=== PATIENT | female | born 1935 | race Caucasian/White ===

== ENCOUNTER → 2017-07-27 | Outpatient (CLI) | payer OTHER ==
--- NOTE | 2017-07-27 16:03 | DIAGNOSTIC IMAGING REPORT ---
L KNEE 1 OR 2 VIEWS ROUTINE CLINICAL HISTORY: Left knee pain COMPARISON: None. DISCUSSION: No fractures or dislocations. 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 No acute fractures 2. 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 07/27/2017 4:01 PM Dictated Date/Time: 07/27/2017 4:00 PM
--- NOTE | 2017-07-27 16:03 | DIAGNOSTIC IMAGING REPORT ---
L-SPINE MIN 4 VIEWS ROUTINE CLINICAL HISTORY: Lower back pain. COMPARISON: None FINDINGS: There is marked disc space narrowing at L5-S1. No acute lumbar spine fracture is identified. There is moderate multilevel facet arthrosis. There is markedly abnormal appearance of the left femoral head. There is marked left hip joint space narrowing. There is sclerosis within left femoral head with collapse. Extensive atherosclerotic plaque of the abdominal aorta is noted. There is possible aneurysmal dilatation which is suboptimally assessed by radiography. The AP diameter of the aorta may measure approximately 3.5 cm. There are retroperitoneal surgical clips. IMPRESSION: 1. No lumbar spine fracture. 2. Marked disc space narrowing at L5-S1. 3. Marked left hip joint space narrowing with sclerosis and lucency of the left femoral head with articular collapse. This favors avascular necrosis with osteoarthritis. 4. Possible mild aneurysmal dilatation of the abdominal aorta which is suboptimally assessed by radiography. Electronically signed by: Chandler Joshua M.D. 07/27/2017 4:01 PM Dictated Date/Time: 07/27/2017 3:58 PM
--- NOTE | 2017-07-27 16:04 | DIAGNOSTIC IMAGING REPORT ---
R KNEE 1 OR 2 VIEWS ROUTINE CLINICAL HISTORY: BILATERAL CHRONIC KNEE PAIN COMPARISON: None FINDINGS: Alignment of the right knee is anatomic. No joint effusion or fracture is visualized. Note is made of sclerosis within the distal shaft and metadiaphysis of the right femur that measures approximately 9.6 x 1.8 cm in extent. IMPRESSION: 1. No acute fracture or joint effusion of the right knee. 2. Sclerosis within the distal shaft and metadiaphysis of the right femur which favors a bone infarct. Electronically signed by: Chandler Joshua M.D. 07/27/2017 4:03 PM Dictated Date/Time: 07/27/2017 4:02 PM
--- NOTE | 2017-07-27 16:21 | DIAGNOSTIC IMAGING REPORT ---
RIGHT HIP 2 VIEWS (NO CHARGE) CLINICAL HISTORY: Hip pain COMPARISON: None. DISCUSSION: No fractures or dislocations of the right hip are visualized. No charge will be made for this interpretation at the technologist inadvertently imaged the incorrect hip. The patient will be called back for imaging of the left hip. IMPRESSION: No fracture identified. Electronically signed by: Brooks De Paz M.D. 07/27/2017 4:20 PM Dictated Date/Time: 07/27/2017 4:16 PM
--- NOTE | 2017-07-27 17:31 | DIAGNOSTIC IMAGING REPORT ---
L HIP UNILATERAL 2 VIEWS CLINICAL HISTORY: Left hip pain. COMPARISON: None FINDINGS: There is marked left hip joint space narrowing. This extensive sclerosis and lucency within the left femoral head. There is subchondral lucency with suspected subchondral collapse/fracture that measures approximately 2.2 cm in extent. There are possible old screw tracts within the proximal left femur. There is no suspicious osseous lesion. IMPRESSION: Severe osteoarthritis of the left hip with marked joint space narrowing. Mixed lucency and sclerosis of the left femoral head favors avascular necrosis with extensive subchondral collapse/fracture. Electronically signed by: Chandler Joshua M.D. 07/27/2017 5:30 PM Dictated Date/Time: 07/27/2017 5:27 PM
== END | disposition home or self-care (01) ==
LOC: C.RAD 14:56
PROVIDERS: ATTEND Nurse Practitioner Family
DX: M54.5 Low back pain (principal); M25.561 Pain in right knee; M16.12 Unilateral primary osteoarthritis, left hip

== ENCOUNTER → 2017-09-06 | Outpatient (CLI) | payer OTHER | END | disposition home or self-care (01) | LOC: C.MAMM 13:03 | PROVIDERS: ATTEND Physical Medicine & Rehabilitation Sports Medicine | DX: M81.0 Age-related osteoporosis without current pathological fracture (principal); M85.88 Other specified disorders of bone density and structure, other site ==

== ENCOUNTER → 2017-09-24 | Outpatient (CLI) | payer OTHER | END | disposition home or self-care (01) | LOC: C.RDSM 17:47 | PROVIDERS: ATTEND Orthopaedic Surgery | DX: M87.00 Idiopathic aseptic necrosis of unspecified bone (principal) ==

== ENCOUNTER → 2018-01-15 | Outpatient (CLI) | payer OTHER | END | disposition home or self-care (01) | LOC: C.RDSM 14:09 | PROVIDERS: ATTEND Orthopaedic Surgery | DX: M25.552 Pain in left hip (principal) ==

== ENCOUNTER 2018-09-02 14:06 | Inpatient (IN) ==
[2018-09-02] MEDS ORDERED: ONDANSETRON INJ 2 MG/ML 2 ML VIAL IV STA (14:38)
[2018-09-02] MEDS ORDERED: SODIUM CHLORIDE 0.9% 500 ML IV SCH (14:45)
[2018-09-02 15:06] LABS: Basophils # (auto) 0.02 K/uL (0-0.2); Basophils % (auto) 0.2 %; Eosinophils # (auto) 0.01 K/uL (0-0.5); Eosinophils % (auto) 0.1 %; Hematocrit (blood only) 31.7 % (37-47); Immature Granulocytes # (auto) 0.06 K/uL (0.00-0.02); Immature Granulocytes % (auto) 0.5 %; Lymphocytes # (auto) 1.05 K/uL (1.2-3.4); Mean Corpuscular Hgb Conc 34.7 g/dL (32-36); Mean Corpuscular Volume 91.1 fL (80-100); Monocytes # (auto) 0.61 K/uL (0.11-0.59); Monocytes % (auto) 4.6 %; Neutrophils # (auto) 11.45 K/uL (1.4-6.5); Neutrophils % (auto) 86.6 %; Platelet Count 500 K/uL (130-400); RDW Coefficient of Variation 14.9 % (11.5-14.5); RDW Standard Deviation 49.9 fL (36.4-46.3); Red Blood Count 3.48 M/uL (4.2-5.4)
--- NOTE | 2018-09-02 15:11 | XRay Report ---
XR chest 1V portable CLINICAL HISTORY: 83 years-old Female presenting with abd pain, back pain, reported illness. TECHNIQUE: Portable upright AP view of the chest was obtained. COMPARISON: 08/22/2018. FINDINGS: Atherosclerosis of the aortic arch. Cardiac silhouette normal in size. Hyperinflated lungs. Few scatt ered calcified granulomata. No focal opacity. No lateral view was obtained for the current exam. No p leural effusion or pneumothorax. Degenerative changes of the thoracic spine. Surgical clips project o isabel the epigastrium. IMPRESSION: 1. Comparison to the prior radiograph is difficult due to the lack of a lateral view on the current exam. Recommend PA and lateral views for further assessment. Hyperinflation suggests underlying emphy sema. Electronically signed by: Jj Hylton M.D. 09/02/2018 3:09 PM
[2018-09-02] MEDS: MoRPHine SULFATE 4 MG/ML 1 ML CARP\\VIAL IV PRN ×3 (15:16→18:51)
[2018-09-02 15:19] LABS: INR 1.2 (0.9-1.1); Partial Thromboplastin Ratio 1.1; Partial Thromboplastin Time 30.7 Seconds (21.0-31.0); Prothrombin Time 11.8 Seconds (9.0-12.0)
[2018-09-02 15:23] LABS: Alanine Aminotransferase 23 U/L (12-78); Albumin Level 3.3 gm/dl (3.4-5.0); Aspartate Aminotransferase 22 U/L (15-37); BUN Creatinine Ratio 20.9 (10-20); Blood Urea Nitrogen 22 mg/dl (7-18); Calcium 8.9 mg/dl (8.5-10.1); Carbon Dioxide 28 mmol/L (21-32); Chloride 94 mmol/L (98-107); Creatinine Clr Calc Pharmacy 31.4 ml/min; Est GFR (African American) 56.6; Est GFR (Non-African American) 48.9; Glucose 94 mg/dl (70-99); Potassium 4.5 mmol/L (3.5-5.1); Sodium 129 mmol/L (136-145)
[2018-09-02 15:28] LABS: Albumin Globulin Ratio 0.9 (0.9-2); Alkaline Phosphatase 144 U/L (45-117); Bilirubin,Total 0.9 mg/dl (0.2-1); Globulin 3.6 gm/dl (2.5-4.0); Total Protein 6.9 gm/dl (6.4-8.2); Troponin I < 0.015 ng/ml (0-0.045)
[2018-09-02] MEDS ORDERED: IOVERSOL 100ml IV PRN (16:15)
--- NOTE | 2018-09-02 16:42 | CT Scan Report ---
CT SCAN OF THE ABDOMEN AND PELVIS WITH IV CONTRAST CLINICAL HISTORY: Generalized abdominal pain. COMPARISON STUDY: Radiographs of the lumbar spine dated 07/27/2017. TECHNIQUE: Following the IV administration of 93 cc of Optiray 320, CT scan of the abdomen and pelvi s is performed from the lung bases to the proximal femora. Images are reviewed in the axial, sagittal , and coronal planes. IV contrast was administered without complication. A dose lowering technique wa s utilized adhering to the principles of ALARA. CT DOSE: 208.42 mGycm FINDINGS: Lung bases: The heart is normal in size and without pericardial effusion. There are coronary artery c alcifications. A tiny hiatal hernia is identified. Fat-containing Bochdalek hernias are seen at both lung bases. Emphysematous change is noted. There is bibasilar scarring/atelectasis. No airspace conso lidation or pleural effusion is seen. There is a 12 mm focus of irregular nodularity/scarring in the right lower lobe seen on image #12. A 3 mm nodule is seen in the left lower lobe on image #35. Liver: The contrast-enhanced liver is normal in size, contour, and attenuation. There is no intrahepa tic biliary ductal dilatation. The hepatic veins and portal veins are patent. Gallbladder: Cholelithiasis is noted. There is no CT evidence of acute cholecystitis. Spleen: Normal in size and attenuation. There are scattered calcified splenic granulomas. Pancreas: Unremarkable. Adrenal glands: Unremarkable. Kidneys: The contrast enhanced kidneys demonstrate cortical atrophy. There is mild bilateral hydronep hrosis, likely related to the markedly distended bladder. The kidneys enhance symmetrically. Abdominal vasculature: There is advanced atherosclerotic calcification of the abdominal aorta. There is a bilobed abdominal aortic aneurysm. The more superior component is located at the level of the re nal arteries and measures 4.0 x 4.5 cm (AP times transverse). The infrarenal component measures 3.3 x 3.3 cm. Bowel: There are scattered colonic diverticula without CT evidence of acute diverticulitis. Colonic f ecal retention is observed. No bowel obstruction is seen. The appendix is not identified. Peritoneum: There is no intraperitoneal free air or abdominal ascites. Lymphadenopathy: None. Pelvic viscera: The bladder is distended and grossly unremarkable. The uterus is surgically absent. N o adnexal lesion is seen. There is abnormal perirenal soft tissue, likely representing pelvic floor p rolapse. Skeletal structures: The skeletal structures are osteopenic. Moderate lumbosacral spondylosis is obse rved. No lytic or blastic lesions are seen. There is advanced arthritic change involving the left hip , with deformity/flattening of the femoral head as well as postoperative change. Bursal fluid is note d on the left hip. There is chronic posterior matter deformity of the left pubic ring. There are age indeterminant bilateral sacral insufficiency fractures. IMPRESSION: 1. There are no acute infectious or inflammatory findings in the abdomen or pelvis. 2. The bladder is markedly distended but otherwise normal as imaged. 3. There is mild bilateral hydroureteronephrosis, likely related to the markedly distended bladder. 4. There is a bilobed infrarenal abdominal aortic aneurysm as detailed above. This measures up to 4.0 x 4.5 cm. 5. There is abnormal soft tissue in the perineal region at the vaginal introitus. This likely represe nts pelvic floor prolapse. Correlation with direct visualization is recommended. 6. Emphysema. 7. Cholelithiasis without CT evidence of acute cholecystitis. 8. There is a 12 mm focus of irregular nodularity in the right lower lobe. This is likely related to scarring/atelectasis. Follow-up with a dedicated chest CT in 3 months time is recommended for reasses sment. 9. There are age indeterminant bilateral sacral insufficiency fractures. 10. Advanced chronic degenerative change and deformity is noted in the left hip. 11. Additional findings as above. Electronically signed by: Tyler Coffman M.D. 09/02/2018 4:40 PM
[2018-09-02] MEDS ORDERED: cefTRIAXone SODIUM 1,000 MG/50 ML BAG IV STA (17:31)
[2018-09-02 17:41] LABS: Appearance Urine Clear (Clear); Bacteria Urine Automated Negative (Negative); Bilirubin Urine Negative (Negative); Blood Urine Trace (Negative); Cast Urine Automated 0 /lpf (0-5); Color Urine Yellow; Glucose Urine UA Negative (Negative); Ketones Urine Negative (Negative); Leukocyte Esterase Urine 1+ (Negative); Nitrite Urine Negative (Negative); Protein Urine Negative (Negative); RBC Urine Automated 0-4 /hpf (0-4); Specific Gravity Urine 1.017 (1.000-1.030); Urobilinogen Urine Negative (Negative)
[2018-09-02] MEDS ORDERED: SODIUM CHLORIDE 0.9% 1000ML 500 ML IV ONE (18:03)
--- NOTE | 2018-09-02 18:18 | Emergency Department Note ---
Entered by Ghada Barrios acting as a scribe for Shaun Castro DO History of Present Illness General Chief complaint: Back Injury/Pain Time Seen by Provider: 09/02/18 14:28 Source: patient History of Present Illness Onset (ago): day(s) (last night) Location: back Pain Consistency: + other (worsening) Maximum Pain Intensity: 8 Exacerbated By: + movement Associated symptoms: + denies other symptoms (back pain, leg swelling), + loss of appetite and + other (abdominal pain, unable to sleep, gagging, shaking, weight loss); no chest pain and no shortness of breath The patient is an 83 year old female who presents to the Emergency Room with complaints of worsening back pain starting last night. The patient states that she has a history of back pain, but it is worse. She states that movement makes the pain worse. She states that she has abdominal pain as well. The patients daughter states that she bought her in because last night she was unable to sleep, was complaining of increased pain, was gagging, and was shaking. She states that she took her to the PCP this morning, but they recommend she come to the ED. The patient complains of loss of appetite. She notes that she has been dropping weight because of it. The patient denies back pain, chest pain, leg swelling, and shortness of breath. Home Medications Home Medications Medication Instructions Recorded Confirmed Type amlodipine 5 mg PO QPM 09/02/18 09/02/18 History aspirin [Aspir-81] 81 mg PO DAILY 09/02/18 09/02/18 History budesonide-formoterol [Symbicort] 2 puff INHALATION BID 09/02/18 09/02/18 History calcium carbonate [Calcium 600] 600 mg PO QPM 09/02/18 09/02/18 History cinnamon bark [Cinnamon] 1,000 mg PO BID 09/02/18 09/02/18 History citalopram 40 mg PO DAILY 09/02/18 09/02/18 History irbesartan 150 mg PO DAILY 09/02/18 09/02/18 History levalbuterol HCl 1.25 mg INHALATION TID PRN 09/02/18 09/02/18 History levothyroxine 75 mcg PO DAILY 09/02/18 09/02/18 History meloxicam 7.5 mg PO DAILY 09/02/18 09/02/18 History omega [id number]-fish oil [Fish Oil] 1 cap PO DAILY 09/02/18 09/02/18 History oxycodone-acetaminophen [Percocet] 1 tab PO Q6H PRN 09/02/18 09/02/18 History pravastatin 40 mg PO DAILY 09/02/18 09/02/18 History tiotropium bromide [Spiriva 2 puff INHALATION DAILY 09/02/18 09/02/18 History Respimat] Allergies Allergy/AdvReac Type Severity Reaction Status Date / Time bupropion [From Wellbutrin] Allergy Mild Unknown Unverified 09/02/18 14:48 hydrochlorothiazide Allergy Mild Unknown Unverified 09/02/18 14:48 [From Avalide] irbesartan [From Avalide] Allergy Mild Unknown Unverified 09/02/18 14:48 roflumilast [From Daliresp] Allergy Mild Unknown Unverified 09/02/18 14:48 Past Med/Surg History Medical History Anxiety COPD (chronic obstructive pulmonary disease) Hypertension Hypothyroidism Osteopenia Family History Father Hypertension Social History Preferred Language: Salvadorean Communication Ability: Effective [employer] Required: No Beliefs That Will Affect Care: None marital status: / Current Living Situation: Family current occupational status: retired Other Information That Helps Us Care for You: No Feels Safe at Home: Yes Safety Concerns: Feels Safe At This Time Smoking Status: Former smoker Hx Alcohol Use: No Hx Substance Use: No Review of Systems See HPI for pertinent positives & negatives. and A total of 10 systems reviewed and were otherwise negative Physical Exam Vital Signs Vital Signs - 24 hr 09/02/18 14:10 09/02/18 15:20 09/02/18 15:30 Temperature 36.4 C L Temperature Source Oral Sepsis Recent Fever Within 48 Hours No Sepsis New/Unexplained Change in Mental Status No Sepsis Action Taken by Nursing No Action Required Pulse Rate 73 69 Pulse Rate [Apical] 69 Pulse Rate [Finger] Pulse Rate from SpO2 Sensor 68 Pulse Rhythm [Finger] Pulse Strength [Finger] Respiratory Rate 18 10 L 15 Respiratory Effort / Characteristics Non-Labored Respiratory Depth Normal Respiratory Pattern Regular Blood Pressure 153/72 H 145/76 H Blood Pressure [Left Arm] 147/72 H Blood Pressure [Right Arm] Blood Pressure Mean 99 99 Blood Pressure Mean [Left Arm] 97 Blood Pressure Mean [Right Arm] Blood Pressure Position [Left Arm] Blood Pressure Position [Right Arm] Pulse Oximetry 100 97 94 Oxygen Delivery Method Room Air Room Air Room Air 09/02/18 16:00 09/02/18 16:30 09/02/18 17:00 Temperature Temperature Source Sepsis Recent Fever Within 48 Hours Sepsis New/Unexplained Change in Mental Status Sepsis Action Taken by Nursing Pulse Rate 71 75 89 Pulse Rate [Apical] Pulse Rate [Finger] Pulse Rate from SpO2 Sensor 72 72 Pulse Rhythm [Finger] Pulse Strength [Finger] Respiratory Rate 12 21 15 Respiratory Effort / Characteristics Respiratory Depth Respiratory Pattern Blood Pressure 134/68 Blood Pressure [Left Arm] Blood Pressure [Right Arm] Blood Pressure Mean 90 Blood Pressure Mean [Left Arm] Blood Pressure Mean [Right Arm] Blood Pressure Position [Left Arm] Blood Pressure Position [Right Arm] Pulse Oximetry 98 97 Oxygen Delivery Method Room Air Room Air 09/02/18 18:33 09/02/18 19:26 09/02/18 19:40 Temperature 37 C Temperature Source Oral Sepsis Recent Fever Within 48 Hours Sepsis New/Unexplained Change in Mental Status Sepsis Action Taken by Nursing Pulse Rate 67 Pulse Rate [Apical] 63 Pulse Rate [Finger] 84 Pulse Rate from SpO2 Sensor 67 Pulse Rhythm [Finger] Regular Pulse Strength [Finger] Normal Respiratory Rate 8 L 20 18 Respiratory Effort / Characteristics Non-Labored Spontaneous Respiratory Depth Normal Respiratory Pattern Regular Blood Pressure 131/65 Blood Pressure [Left Arm] 129/70 150/61 H Blood Pressure [Right Arm] Blood Pressure Mean 87 Blood Pressure Mean [Left Arm] 89 90 Blood Pressure Mean [Right Arm] Blood Pressure Position [Left Arm] Lying Blood Pressure Position [Right Arm] Pulse Oximetry 95 97 94 Oxygen Delivery Method Room Air Room Air Room Air 09/02/18 21:33 09/02/18 23:01 09/03/18 07:41 Temperature 36.9 C 37.3 C Temperature Source Oral Oral Sepsis Recent Fever Within 48 Hours Sepsis New/Unexplained Change in Mental Status Sepsis Action Taken by Nursing Pulse Rate Pulse Rate [Apical] Pulse Rate [Finger] 71 79 84 Pulse Rate from SpO2 Sensor Pulse Rhythm [Finger] Pulse Strength [Finger] Respiratory Rate 18 16 Respiratory Effort / Characteristics Respiratory Depth Respiratory Pattern Blood Pressure Blood Pressure [Left Arm] 99/37 L 106/56 L Blood Pressure [Right Arm] 100/50 L 132/64 Blood Pressure Mean Blood Pressure Mean [Left Arm] 57 72 Blood Pressure Mean [Right Arm] 66 86 Blood Pressure Position [Left Arm] Lying Lying Blood Pressure Position [Right Arm] Lying Lying Pulse Oximetry 93 92 Oxygen Delivery Method Room Air 09/03/18 07:55 Temperature Temperature Source Sepsis Recent Fever Within 48 Hours Sepsis New/Unexplained Change in Mental Status Sepsis Action Taken by Nursing Pulse Rate Pulse Rate [Apical] Pulse Rate [Finger] Pulse Rate from SpO2 Sensor Pulse Rhythm [Finger] Pulse Strength [Finger] Respiratory Rate Respiratory Effort / Characteristics Non-Labored Spontaneous Respiratory Depth Normal Respiratory Pattern Regular Blood Pressure Blood Pressure [Left Arm] Blood Pressure [Right Arm] Blood Pressure Mean Blood Pressure Mean [Left Arm] Blood Pressure Mean [Right Arm] Blood Pressure Position [Left Arm] Blood Pressure Position [Right Arm] Pulse Oximetry Oxygen Delivery Method Room Air GENERAL: Patient is awake, alert, and in no acute distress. Patient is resting comfortably and showing no signs of anxiety. EYES: The conjunctivae are clear. The pupils are round and reactive. EARS, NOSE, MOUTH AND THROAT: The nose is without any evidence of deformity. Mucous membranes are moist. Tongue is midline. NECK: The neck is nontender and supple. RESPIRATORY: Normal respiratory effort is noted. There is no evidence of wheezing rhonchi or rales to auscultation. CARDIOVASCULAR: Regular rate and rhythm noted to auscultation. Systolic murmur suggested. GASTROINTESTINAL: The abdomen is mildly distended with right lower quadrant tenderness to palpation. No guarding or rigidity. Bowel sounds are present in all quadrants. BACK: No midline tenderness to palpation. Pain with ROM of the lumbar spine. MUSCULOSKELETAL/EXTREMITIES: There is no evidence of gross deformity. Full range of motion is noted in the hips and shoulders. SKIN: There is no obvious evidence of any rash. No edema was noted. There is no petechiae, pallor or cyanosis noted. NEUROLOGIC: Patient is awake alert and oriented x3. Course 1433: The patient was evaluated in room C11A, and a complete history and physical examination were performed. 180: I reviewed the patient's case with Dr. Kayleigh MCLAIN Hospitalist. He will evaluate the patient for further management. 1804: I reevaluated the patient and updated her on her test results. I discussed the treatment plan with her. She verbally agrees and understands. Consultations Consultation #1: I reviewed the patient's case with Dr. Kayleigh MCLAIN Hospitalist. He will evaluate the patient for further management. Time: 18:01 Administered Medications Acetaminophen (Tylenol) 650 mg PO Q4H PRN PRN Reason: pain/fever Stop: 10/02/18 19:53 Last Admin: 09/03/18 07:59 Dose: 650 mg Documented by: [id number] Amlodipine Besylate (Norvasc) 5 mg PO QPM MARGARITA Stop: 10/02/18 20:59 Last Admin: 09/02/18 21:29 Dose: Not Given Documented by: [id number] Aspirin (Ecotrin Ectab) 81 mg PO DAILY MARGARITA Stop: 10/03/18 08:59 Last Admin: 09/03/18 08:38 Dose: 81 mg Documented by: [id number] Budesonide/Formoterol Fumarate (Symbicort 160mcg/4.5mcg) 2 puffs INH BID MARGARITA Stop: 10/02/18 20:59 Last Admin: 09/03/18 08:39 Dose: 2 puffs Documented by: [id number] Admin: 09/02/18 21:25 Dose: 2 puffs Documented by: [id number] Citalopram Hydrobromide (Celexa) 40 mg PO DAILY MARGARITA Stop: 10/03/18 08:59 Last Admin: 09/03/18 08:38 Dose: 40 mg Documented by: [id number] Prochlorperazine 5 mg/ Syringe 5 mls @ 5 mls/min IV Q6H PRN PRN Reason: Nausea And Vomiting Stop: 10/03/18 01:51 Last Admin: 09/03/18 02:07 Dose: 5 mls/min Documented by: [id number] Irbesartan (Avapro) 150 mg PO DAILY MARGARITA Stop: 10/03/18 08:59 Last Admin: 09/03/18 08:38 Dose: 150 mg Documented by: [id number] Levothyroxine Sodium (Synthroid) 75 mcg PO DAILYBB MARGARITA Stop: 10/03/18 06:29 Last Admin: 09/03/18 06:02 Dose: 75 mcg Documented by: [id number] Meloxicam (Mobic) 7.5 mg PO DAILY MARGARITA Stop: 10/03/18 08:59 Last Admin: 09/03/18 08:38 Dose: 7.5 mg Documented by: [id number] Pravastatin Sodium (Pravachol) 40 mg PO DAILY MARGARITA Stop: 10/03/18 08:59 Last Admin: 09/03/18 08:39 Dose: 40 mg Documented by: [id number] Tiotropium [place] (Spiriva) 1 puffs INH DAILY MARGARITA Stop: 10/03/18 08:59 Last Admin: 09/03/18 08:40 Dose: 1 puffs Documented by: [id number] Discontinued Medications Sodium Chloride (Nss) 500 mls @ 999 mls/hr IV .Q31M MARGARITA Stop: 09/02/18 15:15 Last Infusion: 09/02/18 15:45 Dose: 0 mls/hr Documented by: [id number] Admin: 09/02/18 15:14 Dose: 999 mls/hr Documented by: [id number] Ceftriaxone Sodium (Rocephin) 1,000 mg in 50 mls @ 100 mls/hr IV NOW STA Stop: 09/02/18 18:00 Last Infusion: 09/02/18 19:03 Dose: 0 mls/hr Documented by: [id number] Admin: 09/02/18 18:33 Dose: 100 mls/hr Documented by: [id number] Sodium Chloride (Nss 1000ml) 500 mls @ 999 mls/hr IV .Q31M ONE Stop: 09/02/18 18:33 Last Infusion: 09/02/18 19:04 Dose: 0 mls/hr Documented by: [id number] Admin: 09/02/18 18:33 Dose: 999 mls/hr Documented by: [id number] Promethazine HCl 12.5 mg/ (Sodium Chloride) 50.5 mls @ 202 mls/hr IV NOW STA Stop: 09/03/18 03:13 Last Infusion: 09/03/18 04:12 Dose: 0 mls/hr Documented by: [id number] Admin: 09/03/18 03:06 Dose: 202 mls/hr Documented by: [id number] Ioversol (Optiray 320 100ml) 93 ml IV ONCE PRN PRN Reason: Interaction Checking Stop: 09/06/18 16:14 Last Admin: 09/02/18 16:15 Dose: 1 ml Documented by: [id number] Morphine Sulfate (Morphine Sulfate) 2 mg IV Q15M PRN PRN Reason: Pain Stop: 09/16/18 14:37 Last Admin: 09/02/18 18:51 Dose: 2 mg Documented by: [id number] Admin: 09/02/18 15:52 Dose: 2 mg Documented by: [id number] Admin: 09/02/18 15:16 Dose: 2 mg Documented by: [id number] Morphine Sulfate (Morphine Sulfate) Confirm Administered Dose 2 mg .ROUTE .STK- MED ONE Stop: 09/02/18 18:49 Last Admin: 09/02/18 18:51 Dose: Not Given Documented by: [id number] Ondansetron HCl (Zofran) 4 mg IV NOW STA Stop: 09/02/18 14:39 Last Admin: 09/02/18 15:14 Dose: 4 mg Documented by: [id number] Medical Decision Making Differential Diagnosis Etiologies such as appendicitis, diverticulitis, obstruction, inflammatory bowel disease, renal colic, PUD, biliary pathology, pancreatitis, mesenteric ischemia, aortic pathology, infections, gentourinary, UTI, perforated viscus, as well as others were entertained. Medical Records Attestation: I reviewed the patient's medical records. Home Medications Current Medication List: was personally reviewed by me Laboratory Data Attestation: I reviewed the patient's lab results. Result diagrams: 09/03/18 07:04 09/03/18 07:04 Lab Results 09/02/18 09/02/18 09/02/18 Range/Units 14:52 14:52 14:52 WBC 13.20 H (4.8-10.8) K/uL RBC 3.48 L (4.2-5.4) M/uL Hgb 11.0 L (12.0-16.0) g/dL Hct 31.7 L (37-47) % MCV 91.1 (80-100) fL MCH 31.6 (25-34) pg MCHC 34.7 (32-36) g/dL RDW Std Deviation 49.9 H (36.4-46.3) fL RDW Coeff of Radhika 14.9 H (11.5-14.5) % Plt Count 500 H (130-400) K/uL MPV 8.0 (7.4-10.4) fL Immature Gran % (Auto) 0.5 % Neut % (Auto) 86.6 % Lymph % (Auto) 8.0 % [place] % (Auto) 4.6 % Eos % (Auto) 0.1 % Baso % (Auto) 0.2 % Immature Gran # (Auto) 0.06 H (0.00-0.02) K/uL Neut # (Auto) 11.45 H (1.4-6.5) K/uL Lymph # (Auto) 1.05 L (1.2-3.4) K/uL [place] # (Auto) 0.61 H (0.11-0.59) K/uL Eos # (Auto) 0.01 (0-0.5) K/uL Baso # (Auto) 0.02 (0-0.2) K/uL PT 11.8 (9.0-12.0) Seconds INR 1.2 H (0.9-1.1) APTT 30.7 (21.0-31.0) Seconds PTT Ratio 1.1 Sodium 129 L (136-145) mmol/L Potassium 4.5 (3.5-5.1) mmol/L Chloride 94 L (98-107) mmol/L Carbon Dioxide 28 (21-32) mmol/L Anion Gap 7.0 (3-11) BUN 22 H (7-18) mg/dl Creatinine 1.06 (0.6-1.2) mg/dl Est Cr Clr Drug Dosing 31.4 ml/min Est GFR ( Amer) 56.6 Est GFR (Non-Af Amer) 48.9 BUN/Creatinine Ratio 20.9 H (10-20) Glucose 94 (70-99) mg/dl Osmolality (280-300) mOsm/kg Calcium 8.9 (8.5-10.1) mg/dl Magnesium (1.8-2.4) mg/dl Total Bilirubin 0.9 (0.2-1) mg/dl AST 22 (15-37) U/L ALT 23 (12-78) U/L Alkaline Phosphatase 144 H (45-117) U/L Troponin I < 0.015 (0-0.045) ng/ml Total Protein 6.9 (6.4-8.2) gm/dl Albumin 3.3 L (3.4-5.0) gm/dl Globulin 3.6 (2.5-4.0) gm/dl Albumin/Globulin Ratio 0.9 (0.9-2) Lipase 104 (73-393) U/L TSH (0.300-4.500) uIu/ml Free T4 (0.8-1.6) ng/dl Urine Color Urine Appearance (Clear) Urine pH (4.5-7.5) Ur Specific [place] (1.000-1.030) Urine Protein (Negative) Urine Glucose (UA) (Negative) Urine Ketones (Negative) Urine Blood (Negative) Urine Nitrite (Negative) Urine Bilirubin (Negative) Urine Urobilinogen (Negative) Ur Leukocyte Esterase (Negative) Urine WBC (Auto) (0-5) /hpf Urine RBC (Auto) (0-4) /hpf U Hyaline Cast (Auto) (0-5) /lpf U Epithel Cells (Auto) (0-5) /lpf Urine Bacteria (Auto) (Negative) Urine Osmolality (500-800) mOsm/kg Ur Random Sodium mmol/L 09/02/18 09/02/18 09/03/18 Range/Units 17:00 18:29 07:00 WBC (4.8-10.8) K/uL RBC (4.2-5.4) M/uL Hgb (12.0-16.0) g/dL Hct (37-47) % MCV (80-100) fL MCH (25-34) pg MCHC (32-36) g/dL RDW Std Deviation (36.4-46.3) fL RDW Coeff of Radhika (11.5-14.5) % Plt Count (130-400) K/uL MPV (7.4-10.4) fL Immature Gran % (Auto) % Neut % (Auto) % Lymph % (Auto) % [place] % (Auto) % Eos % (Auto) % Baso % (Auto) % Immature Gran # (Auto) (0.00-0.02) K/uL Neut # (Auto) (1.4-6.5) K/uL Lymph # (Auto) (1.2-3.4) K/uL [place] # (Auto) (0.11-0.59) K/uL Eos # (Auto) (0-0.5) K/uL Baso # (Auto) (0-0.2) K/uL PT (9.0-12.0) Seconds INR (0.9-1.1) APTT (21.0-31.0) Seconds PTT Ratio Sodium (136-145) mmol/L Potassium (3.5-5.1) mmol/L Chloride (98-107) mmol/L Carbon Dioxide (21-32) mmol/L Anion Gap (3-11) BUN (7-18) mg/dl Creatinine (0.6-1.2) mg/dl Est Cr Clr Drug Dosing ml/min Est GFR ( Amer) Est GFR (Non-Af Amer) BUN/Creatinine Ratio (10-20) Glucose (70-99) mg/dl Osmolality 279 L (280-300) mOsm/kg Calcium (8.5-10.1) mg/dl Magnesium (1.8-2.4) mg/dl Total Bilirubin (0.2-1) mg/dl AST (15-37) U/L ALT (12-78) U/L Alkaline Phosphatase (45-117) U/L Troponin I (0-0.045) ng/ml Total Protein (6.4-8.2) gm/dl Albumin (3.4-5.0) gm/dl Globulin (2.5-4.0) gm/dl Albumin/Globulin Ratio (0.9-2) Lipase (73-393) U/L TSH (0.300-4.500) uIu/ml Free T4 (0.8-1.6) ng/dl Urine Color Yellow Urine Appearance Clear (Clear) Urine pH 7.0 (4.5-7.5) Ur Specific [place] 1.017 (1.000-1.030) Urine Protein Negative (Negative) Urine Glucose (UA) Negative (Negative) Urine Ketones Negative (Negative) Urine Blood Trace H (Negative) Urine Nitrite Negative (Negative) Urine Bilirubin Negative (Negative) Urine Urobilinogen Negative (Negative) Ur Leukocyte Esterase 1+ H (Negative) Urine WBC (Auto) 1-5 (0-5) /hpf Urine RBC (Auto) 0-4 (0-4) /hpf U Hyaline Cast (Auto) 0 (0-5) /lpf U Epithel Cells (Auto) 5-10 H (0-5) /lpf Urine Bacteria (Auto) Negative (Negative) Urine Osmolality 315 L (500-800) mOsm/kg Ur Random Sodium mmol/L 09/03/18 09/03/18 09/03/18 Range/Units 07:00 07:04 07:04 WBC 11.81 H (4.8-10.8) K/uL RBC 3.46 L (4.2-5.4) M/uL Hgb 10.9 L (12.0-16.0) g/dL Hct 32.0 L (37-47) % MCV 92.5 (80-100) fL MCH 31.5 (25-34) pg MCHC 34.1 (32-36) g/dL RDW Std Deviation 52.5 H (36.4-46.3) fL RDW Coeff of Radhika 15.4 H (11.5-14.5) % Plt Count 517 H (130-400) K/uL MPV 8.1 (7.4-10.4) fL Immature Gran % (Auto) % Neut % (Auto) % Lymph % (Auto) % [place] % (Auto) % Eos % (Auto) % Baso % (Auto) % Immature Gran # (Auto) (0.00-0.02) K/uL Neut # (Auto) (1.4-6.5) K/uL Lymph # (Auto) (1.2-3.4) K/uL [place] # (Auto) (0.11-0.59) K/uL Eos # (Auto) (0-0.5) K/uL Baso # (Auto) (0-0.2) K/uL PT (9.0-12.0) Seconds INR (0.9-1.1) APTT (21.0-31.0) Seconds PTT Ratio Sodium 133 L (136-145) mmol/L Potassium 4.2 (3.5-5.1) mmol/L Chloride 99 (98-107) mmol/L Carbon Dioxide 28 (21-32) mmol/L Anion Gap 6.0 (3-11) BUN 20 H (7-18) mg/dl Creatinine 1.10 (0.6-1.2) mg/dl Est Cr Clr Drug Dosing 29.3 ml/min Est GFR ( Amer) 54.1 Est GFR (Non-Af Amer) 46.7 BUN/Creatinine Ratio 18.4 (10-20) Glucose 103 H (70-99) mg/dl Osmolality (280-300) mOsm/kg Calcium 8.8 (8.5-10.1) mg/dl Magnesium 2.1 (1.8-2.4) mg/dl Total Bilirubin (0.2-1) mg/dl AST (15-37) U/L ALT (12-78) U/L Alkaline Phosphatase (45-117) U/L Troponin I (0-0.045) ng/ml Total Protein (6.4-8.2) gm/dl Albumin (3.4-5.0) gm/dl Globulin (2.5-4.0) gm/dl Albumin/Globulin Ratio (0.9-2) Lipase (73-393) U/L TSH 38.800 H (0.300-4.500) uIu/ml Free T4 1.17 (0.8-1.6) ng/dl Urine Color Urine Appearance (Clear) Urine pH (4.5-7.5) Ur Specific [place] (1.000-1.030) Urine Protein (Negative) Urine Glucose (UA) (Negative) Urine Ketones (Negative) Urine Blood (Negative) Urine Nitrite (Negative) Urine Bilirubin (Negative) Urine Urobilinogen (Negative) Ur Leukocyte Esterase (Negative) Urine WBC (Auto) (0-5) /hpf Urine RBC (Auto) (0-4) /hpf U Hyaline Cast (Auto) (0-5) /lpf U Epithel Cells (Auto) (0-5) /lpf Urine Bacteria (Auto) (Negative) Urine Osmolality (500-800) mOsm/kg Ur Random Sodium 39 mmol/L Imaging Data Radiologist's Impression: Radiology results as stated below per my review and the radiologist's interpretation: XR chest 1V portable CLINICAL HISTORY: 83 years-old Female presenting with abd pain, back pain, reported illness. TECHNIQUE: Portable upright AP view of the chest was obtained. COMPARISON: 08/22/2018. FINDINGS: Atherosclerosis of the aortic arch. Cardiac silhouette normal in size. Hyperinflated lungs. Few scattered calcified granulomata. No focal opacity. No lateral view was obtained for the current exam. No pleural effusion or pneumothorax. Degenerative changes of the thoracic spine. Surgical clips project over the epigastrium. IMPRESSION: 1. Comparison to the prior radiograph is difficult due to the lack of a lateral view on the current exam. Recommend PA and lateral views for further assessment. Hyperinflation suggests underlying emphysema. Electronically signed by: Jj Hylton M.D. 09/02/2018 3:[address] SCAN OF THE ABDOMEN AND PELVIS WITH IV CONTRAST CLINICAL HISTORY: Generalized abdominal pain. COMPARISON STUDY: Radiographs of the lumbar spine dated 07/27/2017. TECHNIQUE: Following the IV administration of 93 cc of Optiray 320, CT scan of the abdomen and pelvis is performed from the lung bases to the proximal femora. Images are reviewed in the axial, sagittal, and coronal planes. IV contrast was administered without complication. A dose lowering technique was utilized adhering to the principles of ALARA. CT DOSE: 208.42 mGycm FINDINGS: Lung bases: The heart is normal in size and without pericardial effusion. There are coronary artery calcifications. A tiny hiatal hernia is identified. Fat- containing Bochdalek hernias are seen at both lung bases. Emphysematous change is noted. There is bibasilar scarring/atelectasis. No airspace consolidation or pleural effusion is seen. There is a 12 mm focus of irregular nodularity/scarring in the right lower lobe seen on image #12. A 3 mm nodule is seen in the left lower lobe on image #35. Liver: The contrast-enhanced liver is normal in size, contour, and attenuation. There is no intrahepatic biliary ductal dilatation. The hepatic veins and portal veins are patent. Gallbladder: Cholelithiasis is noted. There is no CT evidence of acute cholecystitis. Spleen: Normal in size and attenuation. There are scattered calcified splenic granulomas. Pancreas: Unremarkable. Adrenal glands: Unremarkable. Kidneys: The contrast enhanced kidneys demonstrate cortical atrophy. There is mild bilateral hydronephrosis, likely related to the markedly distended bladder. The kidneys enhance symmetrically. Abdominal vasculature: There is advanced atherosclerotic calcification of the abdominal aorta. There is a bilobed abdominal aortic aneurysm. The more superior component is located at the level of the renal arteries and measures 4.0 x 4.5 cm (AP times transverse). The infrarenal component measures 3.3 x 3.3 cm. Bowel: There are scattered colonic diverticula without CT evidence of acute diverticulitis. Colonic fecal retention is observed. No bowel obstruction is seen. The appendix is not identified. Peritoneum: There is no intraperitoneal free air or abdominal ascites. Lymphadenopathy: None. Pelvic viscera: The bladder is distended and grossly unremarkable. The uterus is surgically absent. No adnexal lesion is seen. There is abnormal perirenal soft tissue, likely representing pelvic floor prolapse. Skeletal structures: The skeletal structures are osteopenic. Moderate lumbosacral spondylosis is observed. No lytic or blastic lesions are seen. There is advanced arthritic change involving the left hip, with deformity/flattening of the femoral head as well as postoperative change. Bursal fluid is noted on the left hip. There is chronic posterior matter deformity of the left pubic ring. There are age indeterminant bilateral sacral insufficiency fractures. IMPRESSION: 1. There are no acute infectious or inflammatory findings in the abdomen or pelvis. 2. The bladder is markedly distended but otherwise normal as imaged. 3. There is mild bilateral hydroureteronephrosis, likely related to the markedly distended bladder. 4. There is a bilobed infrarenal abdominal aortic aneurysm as detailed above. This measures up to 4.0 x 4.5 cm. 5. There is abnormal soft tissue in the perineal region at the vaginal introitus. This likely represents pelvic floor prolapse. Correlation with direct visualization is recommended. 6. Emphysema. 7. Cholelithiasis without CT evidence of acute cholecystitis. 8. There is a 12 mm focus of irregular nodularity in the right lower lobe. This is likely related to scarring/atelectasis. Follow-up with a dedicated chest CT in 3 months time is recommended for reassessment. 9. There are age indeterminant bilateral sacral insufficiency fractures. 10. Advanced chronic degenerative change and deformity is noted in the left hip. 11. Additional findings as above. Electronically signed by: Tyler Coffman M.D. 09/02/2018 4:40 PM ECG Data Attestation: I personally reviewed and interpreted this ECG as follows: Indication: abdominal pain Rate (beats per minute): 69 Rhythm: normal sinus Findings: no PAC, no PVC, no ST depression, no ST elevation and no ectopy Comparison ECG Date: no prior available Blood Pressure Blood Pressure Findings: Normal blood pressure Blood Pressure Disposition: did not require urgent referral MDM Narrative The patient is an 83-year-old female who presented to the emergency department for an evaluation of abdominal pain and back pain. The patient was sent from the clinic where she was evaluated for further evaluation. The patient was complaining of abdominal pain. Her abdominal exam was not consistent with an acute surgical abdomen however because of the back pain that she was having as well further laboratory and radiographic studies were obtained. ALT only the patient was found to have signs of urinary tract infection as well as hyponatremia. She also appears to have urinary retention. She was able to urinate but still had approximately 300 mL's of urine in her bladder after urin ation. I discussed the patient's laboratory and radiographic studies with her. She was treated with IV fluids as well as antibiotics in the emergency department. I discussed her case with case management. I also discussed her case with the on-call [facility] hospitalist group. They have agreed to evaluate the patient in the emergency department for further management and disposition. The hyponatremia does not appear to be new however I am unsure if it has been addressed on her previous visit. Impression & Plan UTI (urinary tract infection), Urinary retention, Closed sacral fracture, Hyponatremia Discharge Plan Visit Data *Final* Discharge Date/Time: 09/02/18 19:38 Chief Complaint: Back Injury/Pain ED Provider: Shaun Castro Discharge Problem: UTI (urinary tract infection), Urinary retention, Closed sacral fracture, Hyponatremia Patient Disposition: Admitted As Inpatient Discharge Instructions Interventions: ED Discharge Assessment Last Done: 09/02/18 19:38 Discharge Problem: UTI (urinary tract infection) Qualifiers: Urinary tract infection type: site unspecified Hematuria presence: with hematuria Qualified Code(s): N39.0 - Urinary tract infection, site not specified Closed sacral fracture Qualifiers: Encounter type: subsequent encounter Zone of sacrum fracture: unspecified portion of sacrum Fracture healing: with routine healing Qualified Code(s): S32.10XD - Unspecified fracture of sacrum, subsequent encounter for fracture wit h routine healing The scribe's documentation has been prepared under my direction and personally reviewed by me in its entirety. I confirm that the note above accurately reflects all work, treatment, procedures, and medical decision making performed by me.
[2018-09-02] MEDS ORDERED: MoRPHine SULFATE 2 MG/ML CARP ONE (18:48)
[2018-09-02] MEDS ORDERED: MoRPHine SULFATE 4 MG/ML 1 ML CARP\\VIAL IV PRN (19:54)
[2018-09-02] MEDS ORDERED: LEVALBUTEROL HCL 1.25 MG/3 ML NEB INH PRN (19:54)
[2018-09-02] MEDS ORDERED: LORazepam 0.5 MG/1 ML VIAL IV PRN (19:54)
--- NOTE | 2018-09-02 20:22 | History & Physical Report ---
Date of Service September 02, 2018 Assessment & Plan (1) Back pain: As in HPI, it is somewhat difficult to assess the chronicity of the pain as the patient reports months of ongoing pain, but gives some indication this is worse now. Also now with urinary retention, though no weakness, sensation ch anges, or saddle anesthesia. Per patient and daughter, no known bladder issues or prior retention. - MRI lumbar spine for spinal cord evaluation - If no cord compromise, PT/OT & attempt conservative measures for her pain - Continue meloxicam & morphine PRN (2) Urinary retention: No prior urinary issues per patient and daughter. CT a/p on 09/02 showed significant retention and likely pelvic floor prolapse. Straight cathed for >300 mL. If MRI spine does not show spinal cord issues, could consider urology vs. 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 - Bladder scans and/or Barclay catheter insertion if needed - Follow up MRI results - Consider further consultation if MRI is negative (3) Hyponatremia: Na was 129 on admission. Noted to be 128 in 08/2018, though no notes indicate the reason for checking a BMP. Patient has no knowledge of prior low sodiums. Appears euvolemic on exam. Ddx includes SIADH (unknown cause of this though) vs. low solute if she has had poor PO intake due to immobility from back pain. Received normal saline IV fluids in the ED. - Urine sodium and osmolality pending - Monitor Na (4) COPD (chronic obstructive pulmonary disease): No wheezing on exam. No shortness of breath reported. - Continue home inhalers (5) Hypertension: BP was 130/70 at last check. - Continue home meds (6) Hypothyroidism: TSH was 32 in 08/2018. No signs/symptoms of hypo-/hyperthyroidism. - Continue home Synthroid 75 mcg - Will attempt to obtain outside records from PCP to see if this dose reflects an adjustment. - Repeat TSH in the morning (7) Anxiety: Very anxious per daughter. - Continue home citalopram - Added low-dose Ativan for MRI (8) DVT prophylaxis: SCDs - Low risk per calculator History of Present Illness Primary Care Provider: GEOFF Brian 83yo F w/ hx of back pain, HTN, and hypothryoidism who presents with intractable back and suprapubic pain. Patient is a fairly poor historian and cannot tell me the exact chronicity of her back pain; however, her daughter relates that the pain is been ongoing for months. The patient was in [place] from March to July, and the daughter reports that she would frequently call crying due to her pain. When asked about the pain, the patient reports the pain has been ongoing for this duration, but does seem to relate that the pain is somewhat worse in the last few days. She notes the pain is worse with twisting movements or trying to stand. When lying still in bed, the pain is manageable. She also notes some suprapubic pain which she is unclear of the etiology of. She denies dysuria or polyuria. In the emergency department she was noted to be retaining significant amounts of urine, and therefore was straight cathed with over 300 mL of urine returned. She denies fevers, chills, abdominal pain, nausea, vomiting, shortness of breath. Allergies Allergy/AdvReac Type Severity Reaction Status Date / Time bupropion [From Wellbutrin] Allergy Mild Unknown Unverified 09/02/18 14:48 hydrochlorothiazide Allergy Mild Unknown Unverified 09/02/18 14:48 [From Avalide] irbesartan [From Avalide] Allergy Mild Unknown Unverified 09/02/18 14:48 roflumilast [From Daliresp] Allergy Mild Unknown Unverified 09/02/18 14:48 Home Medications Home Medications Medication Instructions Recorded Confirmed Type amlodipine 5 mg PO QPM 09/02/18 09/02/18 History aspirin [Aspir-81] 81 mg PO DAILY 09/02/18 09/02/18 History budesonide-formoterol [Symbicort] 2 puff INHALATION BID 09/02/18 09/02/18 His tory calcium carbonate [Calcium 600] 600 mg PO QPM 09/02/18 09/02/18 History cinnamon bark [Cinnamon] 1,000 mg PO BID 09/02/18 09/02/18 History citalopram 40 mg PO DAILY 09/02/18 09/02/18 History irbesartan 150 mg PO DAILY 09/02/18 09/02/18 History levalbuterol HCl 1.25 mg INHALATION TID PRN 09/02/18 09/02/18 History levothyroxine 75 mcg PO DAILY 09/02/18 09/02/18 History meloxicam 7.5 mg PO DAILY 09/02/18 09/02/18 History omega [id number] oil [Fish Oil] 1 cap PO DAILY 09/02/18 09/02/18 History oxycodone-acetaminophen [Percocet] 1 tab PO Q6H PRN 09/02/18 09/02/18 History pravastatin 40 mg PO DAILY 09/02/18 09/02/18 History tiotropium bromide [Spiriva 2 puff INHALATION DAILY 09/02/18 09/02/18 History Respimat] Past Med/Surg History Medical History Anxiety COPD (chronic obstructive pulmonary disease) Hypertension Hypothyroidism Osteopenia Family History Father Hypertension Social History Preferred Language: Andorran Communication Ability: Effective Computer Operator Required: No Beliefs That Will Affect Care: None marital status: / Current Living Situation: Family current occupational status: retired Other Information That Helps Us Care for You: No Feels Safe at Home: Yes Safety Concerns: Feels Safe At This Time Smoking Status: Former smoker Hx Alcohol Use: No Hx Substance Use: No Review of Systems Constitutional: no fever, no chills and no sweats Eyes: no diplopia Ear, Nose, Mouth, Throat: no ear trauma, no nasal discharge and no dental pain Respiratory: no cough, no chest congestion and no dyspnea Cardiovascular: no chest pain, no dyspnea on exertion, no palpitations and no syncope Gastrointestinal: no abdominal pain, no belching, no constipation, no diarrhea/loose stools, no blood in stools and no melena Musculoskeletal: + back pain; no joint pain and no muscle weakness Integumentary: no rash, no skin ulcer and no erythema Neurologic: no generalized weakness, no loss of sensation, no numbness and no paresthesia Psychiatric: no depression and no anxiety Endocrine: no fatigue, no polydipsia and no polyphagia Physical Exam Vital Signs (Past 24 Hours): Last Vital Signs Temp 36.4 C L 09/02/18 14:10 Pulse 63 09/02/18 19:26 Resp 20 09/02/18 19:26 BP 129/70 09/02/18 19:26 Pulse Ox 97 09/02/18 19:26 Constitutional: WD/WN, vitals as above Eyes: EOM intact bilaterally; no conjunctival abnormality ENMT: external ear and nose normal, oropharynx normal Neck: trachea midline, no thyromegaly normal visual inspection Respiratory: normal respiratory effort, lungs clear to auscultation no respiratory distress Cardiovascular: RRR, no murmur, no edema Gastrointestinal (Abdomen): Inspection/Auscultation: abdomen normal to inspection; abdomen not distended Musculoskeletal: no cyanosis or clubbing, extremities motor strength 5/5 Spine: + lumbar spinal tenderness and + straight leg raise positive Skin: no rashes, warm and dry Neurologic: moves all extremities and awake Psychiatric: Orientation: alert, oriented to person and cooperative
[2018-09-02] MEDS: BUDESONIDE/FORMOTEROL FUMARATE 160/4.5 60 PUFFS/INHALER INH SCH (21:25)
[2018-09-02] MEDS: AMLODIPINE BESYLATE 5 MG TAB PO SCH (21:29)
--- NOTE | 2018-09-02 22:46 | Magnetic Resonance Report ---
MRI OF THE LUMBAR SPINE WITHOUT IV CONTRAST CLINICAL HISTORY: Low back pain. Urinary retention. COMPARISON STUDY: Abdominal CT dated 09/02/2018. Radiographs of the lumbar spine dated 08/22/2018. TECHNIQUE: MRI of the lumbar spine is performed utilizing various T1 and T2-weighted sequences in the axial and sagittal planes. IV contrast was not administered for this examination. The examination is compromised by motion artifact. FINDINGS: Lumbar spine: Vertebral body height and alignment are maintained throughout the lumbar spine. Marrow signal intensity is heterogeneous. Anterior osteophytes are seen throughout. Chronic degenerative end plate change is seen at all lumbar levels. Only minimal endplate edema is seen at L5-S1. The transver se and spinous processes appear intact. There is no evidence of spondylolysis. Intervertebral discs: Degenerative disc desiccation is seen at all levels. Advanced loss of height is noted at L5-S1. Only minimal loss of height is seen at the remaining lumbar levels. Spinal cord: The partially imaged spinal cord is normal in morphology and signal intensity. The conus medullaris terminates at the L1-L2 interspace. The nerve roots of the cauda equina are normal in mor phology. L1-L2: Unremarkable. L2-L3: Unremarkable. L3-L4: Facet arthropathy is of no consequence. The central canal and neural foramina appear patent. L4-L5: There is minimal posterior disc bulge. The central canal and neural foramina are patent. There is mild bilateral subarticular stenosis. L5-S1: There is no disc herniation or neural foraminal stenosis. There is mild left-sided subarticula r stenosis. Sacrum: There is significant marrow edema identified within the sacral ala bilaterally. This correspo nds to bilateral sacral sufficiency fractures seen on today's CT scan. 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 Soft tissues: There is mild fatty atrophy of the paraspinous musculature. A bilobed abdominal aortic aneurysm is again noted. The kidneys demonstrate cortical atrophy. Cholelithiasis is observed. IMPRESSION: 1. Motion compromised examination. 2. There is no disc herniation or central canal stenosis seen involving the lumbar spine. 3. There is significant marrow edema identified within the sacral ala bilaterally. This corresponds t o sacral insufficiency fractures seen on today's CT scan. 4. Mild spondylotic change as above. See discussion for detailed level by level analysis. 5. The bladder is distended. 6. An abdominal aortic aneurysm and cholelithiasis are noted. These are better detailed on today's ab dominal CT scan. See that report for detailed intra-abdominal findings. Dictated: 09/02/2018 10:28 PM Transcribed: 09/02/2018 10:46 PM Niesha [id number] [email or web address] Electronically signed by: Tyler Coffman M.D. 09/02/2018 10:50 PM
[2018-09-03] MEDS: PROCHLORPERAZINE 5 MG in SYRINGE 4 ML IV PRN (02:07)
[2018-09-03] MEDS ORDERED: PROMETHAZINE HCL 12.5 MG in SODIUM CHLORIDE 0.9% 50 ML IV STA (02:59)
[2018-09-03] MEDS ORDERED: LEVOTHYROXINE SODIUM 75 MCG TABLET PO SCH (06:30)
[2018-09-03 07:16] LABS: Hemoglobin 10.9 g/dL (12.0-16.0); Mean Corpuscular Hgb Conc 34.1 g/dL (32-36); Mean Corpuscular Volume 92.5 fL (80-100); Mean Platelet Volume 8.1 fL (7.4-10.4); Platelet Count 517 K/uL (130-400); RDW Coefficient of Variation 15.4 % (11.5-14.5); RDW Standard Deviation 52.5 fL (36.4-46.3); Red Blood Count 3.46 M/uL (4.2-5.4); White Blood Count 11.81 K/uL (4.8-10.8)
[2018-09-03 07:46] LABS: BUN Creatinine Ratio 18.4 (10-20); Calcium 8.8 mg/dl (8.5-10.1); Creatinine Clr Calc Pharmacy 29.3 ml/min; Est GFR (African American) 54.1; Est GFR (Non-African American) 46.7; Magnesium 2.1 mg/dl (1.8-2.4); Potassium 4.2 mmol/L (3.5-5.1)
[2018-09-03] MEDS: ACETAMINOPHEN 325 MG TAB PO PRN ×3 (07:59→19:46)
[2018-09-03 08:09] LABS: T4 Free Thyroxine 1.17 ng/dl (0.8-1.6)
[2018-09-03] MEDS: ASPIRIN 81 MG ECTAB PO SCH (08:38)
[2018-09-03] MEDS: IRBESARTAN 150 MG TAB PO SCH (08:38)
[2018-09-03] MEDS: CITALOPRAM 40 MG TAB PO SCH (08:38)
[2018-09-03] MEDS: MELOXICAM 7.5 MG TAB PO SCH (08:38)
[2018-09-03] MEDS: PRAVASTATIN SOD 40 MG TAB PO SCH (08:39)
[2018-09-03] MEDS: BUDESONIDE/FORMOTEROL FUMARATE 160/4.5 60 PUFFS/INHALER INH SCH ×2 (08:39→20:39)
[2018-09-03] MEDS: TIOTROPIUM BROMIDE 5 PUFF/90 MCG INH INH SCH (08:40)
--- NOTE | 2018-09-03 17:23 | Hospitalist Progress Note ---
Date of Service September 03, 2018 Assessment & Plan (1) Age-related osteoporosis with current pathological fracture: fracture of sacral ala bilaterally fell two weeks ago pain control PT/OT (2) Back pain: As in HPI, it is somewhat difficult to assess the chronicity of the pain as the patient reports months of ongoing pain, but gives some indication this is worse now. Also now with urinary retention, though no weakness, sensation changes, or saddle anesthesia. Per patient and daughter, no known bladder issues or prior retention. MRI lumbar spine showed no cord compression, no disc herniation it confirmed insufficiency fractures of the sacral ala bilaterally suggests that worsening back pain due to osteoporosis related fractures pain control with Morphine, PT/OT ordered pain much better today (3) Urinary retention: No prior urinary issues per patient and daughter. CT a/p on 09/02 showed significant retention and likely pelvic floor prolapse. Straight cathed for >300 mL. no spinal cord issues on MRI lumbar spine no further retention after admission urinating well, no complaints no history of prolapse will continue to monitor (4) Hyponatremia: 129 on admission due to poor solute intake improving (5) COPD (chronic obstructive pulmonary disease): No wheezing on exam. No shortness of breath reported. - Continue home inhalers (6) Hypertension: BP was 130/70 at last check. - Continue home meds (7) Hypothyroidism: TSH elevated at 38 increase Synthroid to 100mcg check in 6 weeks with PCP (8) Anxiety: Very anxious per daughter. - Continue home citalopram - Added low-dose Ativan for MRI (9) DVT prophylaxis: SCDs - Low risk per calculator (10) Closed sacral fracture: (11) Dehydration: Subjective patient feeling much better her daughter in law says it is "like night and day" compared to how she looked when she came in says that she did not eat or drink much for 4 days, likely the fluids helping less back pain today, Morphine helping discussed results of MRI lumbar spine, no signs of disc herniation, no cord compression, did show some insufficiency fractures of sacrum of note, patient fell 2 weeks ago, never sought care discussed elevated TSH at 38 and plans to increase Synthroid discussed finding of weakened pelvic floor muscles patient has never noticed prolapse, she has no issues urinating no mari needed, was making urine at home Review of Systems All systems reviewed & are unremarkable except as noted in HPI & below Musculoskeletal: + back pain (low back, better) Physical Exam Vital Signs (Past 24 Hours): Last Vital Signs Temp 37.3 C 09/03/18 15:34 Pulse 78 09/03/18 15:34 Resp 16 09/03/18 15:34 BP 139/60 09/03/18 15:34 Pulse Ox 95 09/03/18 15:34 Constitutional: WD/WN, vitals as above Eyes: PERRL, conjunctivae normal, anicteric sclerae ENMT: external ear and nose normal, oropharynx normal Neck: trachea midline, no thyromegaly Respiratory: normal respiratory effort, lungs clear to auscultation Cardiovascular: RRR, no murmur, no edema Gastrointestinal (Abdomen): normal bowel sounds, soft, nontender, no hepatosplenomegaly Musculoskeletal: no cyanosis or clubbing, extremities motor strength 5/5 Skin: no rashes, warm and dry Neurologic: patellar DTR's 2+ bilat, sensation intact and PERRL, EOMI, accommodation nl, no face palsy, no dysarthria Psychiatric: A+Ox3, euthymic affect Lymphatic: no cervical or axillary lymphadenopathy Results & Data Laboratory Results Laboratory Results - last 24 hr 09/02/18 09/02/18 09/03/18 17:00 18:29 07:00 WBC RBC Hgb Hct MCV MCH MCHC RDW Std Deviation RDW Coeff of Radhika Plt Count MPV Sodium Potassium Chloride Carbon Dioxide Anion Gap BUN Creatinine Est Cr Clr Drug Dosing Est GFR ( Amer) Est GFR (Non-Af Amer) BUN/Creatinine Ratio Glucose Osmolality 279 L Calcium Magnesium TSH Free T4 Urine Color Yellow Urine Appearance Clear Urine pH 7.0 Ur Specific Cope 1.017 Urine Protein Negative Urine Glucose (UA) Negative Urine Ketones Negative Urine Blood Trace H Urine Nitrite Negative Urine Bilirubin Negative Urine Urobilinogen Negative Ur Leukocyte Esterase 1+ H Urine WBC (Auto) 1-5 Urine RBC (Auto) 0-4 U Hyaline Cast (Auto) 0 U Epithel Cells (Auto) 5-10 H Urine Bacteria (Auto) Negative Urine Osmolality 315 L Ur Random Sodium 09/03/18 09/03/18 09/03/18 07:00 07:04 07:04 WBC 11.81 H RBC 3.46 L Hgb 10.9 L Hct 32.0 L MCV 92.5 MCH 31.5 MCHC 34.1 RDW Std Deviation 52.5 H RDW Coeff of Radhika 15.4 H Plt Count 517 H MPV 8.1 Sodium 133 L Potassium 4.2 Chloride 99 Carbon Dioxide 28 Anion Gap 6.0 BUN 20 H Creatinine 1.10 Est Cr Clr Drug Dosing 29.3 Est GFR ( Amer) 54.1 Est GFR (Non-Af Amer) 46.7 BUN/Creatinine Ratio 18.4 Glucose 103 H Osmolality Calcium 8.8 Magnesium 2.1 TSH 38.800 H Free T4 1.17 Urine Color Urine Appearance Urine pH Ur Specific Cope Urine Protein Urine Glucose (UA) Urine Ketones Urine Blood Urine Nitrite Urine Bilirubin Urine Urobilinogen Ur Leukocyte Esterase Urine WBC (Auto) Urine RBC (Auto) U Hyaline Cast (Auto) U Epithel Cells (Auto) Urine Bacteria (Auto) Urine Osmolality Ur Random Sodium 39 Medications Administered Current Inpatient Medications Acetaminophen (Tylenol) 650 mg PO Q4H PRN PRN Reason: pain/fever Stop: 10/02/18 19:53 Last Admin: 09/03/18 14:16 Dose: 650 mg Documented by: Amlodipine Besylate (Norvasc) 5 mg PO QPM [facility] Stop: 10/02/18 20:59 Last Admin: 09/02/18 21:29 Dose: Not Given Documented by: Aspirin (Ecotrin Ectab) 81 mg PO DAILY [facility] Stop: 10/03/18 08:59 Last Admin: 09/03/18 08:38 Dose: 81 mg Documented by: Budesonide/Formoterol Fumarate (Symbicort 160mcg/4.5mcg) 2 puffs INH BID [facility] Stop: 10/02/18 20:59 Last Admin: 09/03/18 08:39 Dose: 2 puffs Documented by: Citalopram Hydrobromide (Celexa) 40 mg PO DAILY [facility] Stop: 10/03/18 08:59 Last Admin: 09/03/18 08:38 Dose: 40 mg Documented by: Lorazepam (Ativan) 0.5 mg in 1 mls @ 1 mls/min IV Q4H PRN PRN Reason: Anxiety/Agitation Stop: 10/02/18 19:53 Prochlorperazine 5 mg/ Syringe 5 mls @ 5 mls/min IV Q6H PRN PRN Reason: Nausea And Vomiting Stop: 10/03/18 01:51 Last Admin: 09/03/18 02:07 Dose: 5 mls/min Documented by: Irbesartan (Avapro) 150 mg PO DAILY [facility] Stop: 10/03/18 08:59 Last Admin: 09/03/18 08:38 Dose: 150 mg Documented by: Levalbuterol HCl (Xopenex 1.25mg/3ml Neb) 1.25 mg INH TID PRN PRN Reason: Shortness Of Breath Or Wheezing Stop: 10/02/18 19:53 [facility] Stop: 10/04/18 06:29 Meloxicam (Mobic) 7.5 mg PO DAILY MARGARITA Stop: 10/03/18 08:59 Last Admin: 09/03/18 08:38 Dose: 7.5 mg Documented by: Morphine Sulfate (Morphine Sulfate) 4 mg IV Q4H PRN PRN Reason: Pain Stop: 09/16/18 19:53 Pravastatin Sodium (Pravachol) 40 mg PO DAILY [facility] Stop: 10/03/18 08:59 Last Admin: 09/03/18 08:39 Dose: 40 mg Documented by: Tiotropium [place] (Spiriva) 1 puffs INH DAILY MARGARITA Stop: 10/03/18 08:59 Last Admin: 09/03/18 08:40 Dose: 1 puffs Documented by: (1) Closed sacral fracture Encounter type: subsequent encounter Fracture healing: with routine healing Zone of sacrum fracture: unspecified portion of sacrum Qualified Code(s): S32.10XD - Unspecified fracture of sacrum, subsequent encounter for fracture with routine healing
[2018-09-03] MEDS: AMLODIPINE BESYLATE 5 MG TAB PO SCH (20:39)
[2018-09-04] MEDS: PROCHLORPERAZINE 5 MG in SYRINGE 4 ML IV PRN ×3 (03:29→23:29)
[2018-09-04] MEDS: LEVOTHYROXINE SODIUM 100 MCG TABLET PO SCH (05:50)
[2018-09-04 07:51] LABS: Hematocrit (blood only) 25.3 % (37-47); Hemoglobin 8.5 g/dL (12.0-16.0); Mean Corpuscular Hgb Conc 33.6 g/dL (32-36); Mean Corpuscular Volume 93.4 fL (80-100); Mean Platelet Volume 8.3 fL (7.4-10.4); Platelet Count 447 K/uL (130-400); RDW Coefficient of Variation 15.5 % (11.5-14.5); RDW Standard Deviation 53.2 fL (36.4-46.3); Red Blood Count 2.71 M/uL (4.2-5.4); White Blood Count 12.02 K/uL (4.8-10.8)
[2018-09-04] MEDS: IRBESARTAN 150 MG TAB PO SCH (08:41)
[2018-09-04 08:42] LABS: BUN Creatinine Ratio 40.2 (10-20); Calcium 8.2 mg/dl (8.5-10.1); Creatinine Clr Calc Pharmacy 31.6 ml/min; Est GFR (African American) 59.3; Est GFR (Non-African American) 51.2; Potassium 4.7 mmol/L (3.5-5.1)
[2018-09-04] MEDS: CITALOPRAM 40 MG TAB PO SCH (08:42)
[2018-09-04] MEDS: PRAVASTATIN SOD 40 MG TAB PO SCH (08:42)
[2018-09-04] MEDS: MELOXICAM 7.5 MG TAB PO SCH (08:42)
[2018-09-04] MEDS: BUDESONIDE/FORMOTEROL FUMARATE 160/4.5 60 PUFFS/INHALER INH SCH ×2 (08:42→21:28)
[2018-09-04] MEDS: ASPIRIN 81 MG ECTAB PO SCH (08:42)
[2018-09-04] MEDS: TIOTROPIUM BROMIDE 5 PUFF/90 MCG INH INH SCH (08:43)
[2018-09-04 13:52] LABS: Hematocrit (blood only) 22.6 % (37-47); Hemoglobin 7.5 g/dL (12.0-16.0)
[2018-09-04] MEDS: ACETAMINOPHEN 325 MG TAB PO PRN (16:22)
[2018-09-04] MEDS ORDERED: SODIUM CHLORIDE 0.9% 250 ML IV PRN ×3 (20:17→23:35)
--- NOTE | 2018-09-04 20:41 | Progress Note ---
Date of Service September 04, 2018 RN paged at 20:05 requesting hemeoccult as pt had large dark BM. Per nurse, pt was dizzy when walking otherwise stable. Chart reviewed: vitals stable, H/H downtrending from 10.9 on 09/03 to 7.5 at 2pm today, no repeat labs, type/cross noted Ordered repeat H/H for 22:00m, AM CBC/BMP/PT-INR, type-cross for 2 units, npo after midnight and GI consult (Dr. Field) ordered RN notified of orders and will report with any changes Physical Exam Vital Signs (Past 24 Hours): Last Vital Signs Temp 37.2 C 09/04/18 15:37 Pulse 84 09/04/18 15:37 Resp 18 09/04/18 15:37 BP 133/86 09/04/18 15:37 Pulse Ox 98 09/04/18 15:37 Resident Activity Tracking Resident Involvement: Resident Care Provided Care Provided: Adult Hospital Medicine
[2018-09-04] MEDS ORDERED: ONDANSETRON INJ 2 MG/ML 2 ML VIAL IV PRN (20:47)
--- NOTE | 2018-09-04 21:17 | Hospitalist Progress Note ---
Date of Service September 04, 2018 Assessment & Plan (1) Anemia: significant drop in Hb to 7.5 from 11 in two days unsure if the 7.5 is accurate no signs of bleeding, had a normal BM yesterday heme occult negative no tachycardia, normal blood pressure, would expect some changes if she was bleeding quickly h/o PUD will repeat Hb in the morning, if it is going back up then no work up if trending down then will need further work up with GI (2) Age-related osteoporosis with current pathological fracture: fracture of sacral ala bilaterally fell two weeks ago pain control PT/OT no pain today, improving quickly (3) Back pain: As in HPI, it is somewhat difficult to assess the chronicity of the pain as the patient reports months of ongoing pain, but gives some indication this is worse now. Also now with urinary retention, though no weakness, sensation changes, or saddle anesthesia. Per patient and daughter, no known bladder issues or prior retention. MRI lumbar spine showed no cord compression, no disc herniation it confirmed insufficiency fractures of the sacral ala bilaterally suggests that worsening back pain due to osteoporosis related fractures pain control with Morphine, PT/OT ordered pain much better today (4) Urinary retention: No prior urinary issues per patient and daughter. CT a/p on 09/02 showed significant retention and likely pelvic floor prolapse. Straight cathed for >300 mL. no spinal cord issues on MRI lumbar spine no further retention after admission urinating well, no complaints no history of prolapse will continue to monitor (5) Hyponatremia: 129 on admission due to poor solute intake up to 135 today (6) COPD (chronic obstructive pulmonary disease): No wheezing on exam. No shortness of breath reported. - Continue home inhalers (7) Hypertension: BP was 130/70 at last check. - Continue home meds (8) Hypothyroidism: TSH elevated at 38 increase Synthroid to 100mcg check in 6 weeks with PCP (9) Anxiety: Very anxious per daughter. - Continue home citalopram - Added low-dose Ativan for MRI (10) DVT prophylaxis: SCDs - Low risk per calculator (11) Closed sacral fracture: (12) Dehydration: resolved with IV fluids, no further fluids needed Subjective patient continues to feel much better no back pain, urinating well, participating in therapy, wants to go home discussed drop in Hb from 11 on admission to 7.5 this afternoon has a h/o PUD long time ago no signs of bleeding, no hematemesis, no melena, no abdominal pain blood pressure and heart rate stable as well, would argue against blood loss could be dilutional recommend we repeat Hb in the morning, check Heme occult patient and her daughter in law agree Review of Systems All systems reviewed & are unremarkable except as noted in HPI & below Gastrointestinal: no abdominal pain, no nausea, no vomiting, no constipation, no diarrhea/loose stools, no blood in stools and no melena Genitourinary (Female): no dysuria, no difficulty urinating, no urinary hesitancy and no urinary incontinence Musculoskeletal: + back pain (mild) Physical Exam Vital Signs (Past 24 Hours): Last Vital Signs Temp 37.2 C 09/04/18 15:37 Pulse 84 09/04/18 15:37 Resp 18 09/04/18 15:37 BP 133/86 09/04/18 15:37 Pulse Ox 98 09/04/18 15:37 Constitutional: WD/WN, vitals as above Eyes: PERRL, conjunctivae normal, anicteric sclerae ENMT: external ear and nose normal, oropharynx normal Neck: trachea midline, no thyromegaly Respiratory: normal respiratory effort, lungs clear to auscultation Cardiovascular: RRR, no murmur, no edema Gastrointestinal (Abdomen): normal bowel sounds, soft, nontender, no hepatosplenomegaly Musculoskeletal: no cyanosis or clubbing, extremities motor strength 5/5 Skin: no rashes, warm and dry Neurologic: patellar DTR's 2+ bilat, sensation intact and PERRL, EOMI, accommodation nl, no face palsy, no dysarthria Psychiatric: A+Ox3, euthymic affect Lymphatic: no cervical or axillary lymphadenopathy Results & Data Laboratory Results Laboratory Results - last 24 hr 09/04/18 09/04/18 09/04/18 07:19 07:19 13:42 WBC 12.02 H RBC 2.71 L Hgb 8.5 L 7.5 L Hct 25.3 L 22.6 L MCV 93.4 MCH 31.4 MCHC 33.6 RDW Std Deviation 53.2 H RDW Coeff of Radhika 15.5 H Plt Count 447 H MPV 8.3 Sodium 135 L Potassium 4.7 Chloride 101 Carbon Dioxide 28 Anion Gap 6.0 BUN 41 H D Creatinine 1.02 Est Cr Clr Drug Dosing 31.6 Est GFR ( Amer) 59.3 Est GFR (Non-Af Amer) 51.2 BUN/Creatinine Ratio 40.2 H Glucose 97 Calcium 8.2 L Stool Occult Bld Scrn Crossmatch 09/04/18 09/04/18 19:34 20:26 WBC RBC Hgb Hct MCV MCH MCHC RDW Std Deviation RDW Coeff of Radhika Plt Count MPV Sodium Potassium Chloride Carbon Dioxide Anion Gap BUN Creatinine Est Cr Clr Drug Dosing Est GFR ( Amer) Est GFR (Non-Af Amer) BUN/Creatinine Ratio Glucose Calcium Stool Occult Bld Scrn Negative Crossmatch See Detail Medications Administered Current Inpatient Medications Acetaminophen (Tylenol) 650 mg PO Q4H PRN PRN Reason: pain/fever Stop: 10/02/18 19:53 Last Admin: 09/04/18 16:22 Dose: 650 mg Documented by: Amlodipine Besylate (Norvasc) 5 mg PO QPM [facility] Stop: 10/02/18 20:59 Last Admin: 09/03/18 20:39 Dose: 5 mg Documented by: Aspirin (Ecotrin Ectab) 81 mg PO DAILY [facility] Stop: 10/03/18 08:59 Last Admin: 09/04/18 08:42 Dose: 81 mg Documented by: Budesonide/Formoterol Fumarate (Symbicort 160mcg/4.5mcg) 2 puffs INH BID [facility] Stop: 10/02/18 20:59 Last Admin: 09/04/18 08:42 Dose: 2 puffs Documented by: Citalopram Hydrobromide (Celexa) 40 mg PO DAILY [facility] Stop: 10/03/18 08:59 Last Admin: 09/04/18 08:42 Dose: 40 mg Documented by: Lorazepam (Ativan) 0.5 mg in 1 mls @ 1 mls/min IV Q4H PRN PRN Reason: Anxiety/Agitation Stop: 10/02/18 19:53 Prochlorperazine 5 mg/ Syringe 5 mls @ 5 mls/min IV Q6H PRN PRN Reason: Nausea And Vomiting Stop: 10/03/18 01:51 Last Admin: 09/04/18 15:46 Dose: 5 mls/min Documented by: Sodium Chloride (Nss) 250 mls @ 15 mls/hr IV .[id number] PRN PRN Reason: For Transfusion Stop: 10/04/18 20:16 Irbesartan (Avapro) 150 mg PO DAILY [facility] Stop: 10/03/18 08:59 Last Admin: 09/04/18 08:41 Dose: 150 mg Documented by: Levalbuterol HCl (Xopenex 1.25mg/3ml Neb) 1.25 mg INH TID PRN PRN Reason: Shortness Of Breath Or Wheezing Stop: 10/02/18 19:53 Levothyroxine Sodium (Synthroid) 100 mcg PO DAILYBB [facility] Stop: 10/04/18 06:29 Last Admin: 09/04/18 05:50 Dose: 100 mcg Documented by: Meloxicam (Mobic) 7.5 mg PO DAILY [facility] Stop: 10/03/18 08:59 Last Admin: 09/04/18 08:42 Dose: 7.5 mg Documented by: Morphine Sulfate (Morphine Sulfate) 4 mg IV Q4H PRN PRN Reason: Pain Stop: 09/16/18 19:53 Ondansetron HCl (Zofran) 4 mg IV Q6H PRN PRN Reason: Nausea Stop: 10/04/18 20:46 Pravastatin Sodium (Pravachol) 40 mg PO DAILY [facility] Stop: 10/03/18 08:59 Last Admin: 09/04/18 08:42 Dose: 40 mg Documented by: Tiotropium [place] (Spiriva) 1 puffs INH DAILY [facility] Stop: 10/03/18 08:59 Last Admin: 09/04/18 08:43 Dose: 1 puffs Documented by: (1) Closed sacral fracture Encounter type: subsequent encounter Fracture healing: with routine healing Zone of sacrum fracture: unspecified portion of sacrum Qualified Code(s): S32.1 0XD - Unspecified fracture of sacrum, subsequent encounter for fracture with routine healing
[2018-09-04 22:21] LABS: Hematocrit (blood only) 19.2 % (37-47); Hemoglobin 6.7 g/dL (12.0-16.0)
[2018-09-04] MEDS ORDERED: PROCHLORPERAZINE MALEATE 10 MG TAB PO STA (23:57)
[2018-09-05] MEDS: LEVOTHYROXINE SODIUM 100 MCG TABLET PO SCH (05:54)
[2018-09-05 07:27] LABS: Basophils # (auto) 0.02 K/uL (0-0.2); Basophils % (auto) 0.2 %; Eosinophils # (auto) 0.09 K/uL (0-0.5); Eosinophils % (auto) 0.8 %; Hematocrit (blood only) 26.6 % (37-47); Immature Granulocytes % (auto) 0.9 %; Lymphocytes # (auto) 1.69 K/uL (1.2-3.4); Lymphocytes % (auto) 14.8 %; Mean Corpuscular Hgb Conc 33.8 g/dL (32-36); Mean Corpuscular Volume 92.4 fL (80-100); Mean Platelet Volume 8.7 fL (7.4-10.4); Monocytes # (auto) 0.64 K/uL (0.11-0.59); Monocytes % (auto) 5.6 %; Neutrophils # (auto) 8.85 K/uL (1.4-6.5); Neutrophils % (auto) 77.7 %; Platelet Count 307 K/uL (130-400); RDW Coefficient of Variation 14.8 % (11.5-14.5); RDW Standard Deviation 50.4 fL (36.4-46.3); Red Blood Count 2.88 M/uL (4.2-5.4); White Blood Count 11.39 K/uL (4.8-10.8)
[2018-09-05 07:35] LABS: INR 1.2 (0.9-1.1); Prothrombin Time 12.1 Seconds (9.0-12.0)
[2018-09-05 07:42] LABS: BUN Creatinine Ratio 63.4 (10-20); Calcium 8.2 mg/dl (8.5-10.1); Creatinine Clr Calc Pharmacy 33.6 ml/min; Est GFR (African American) 63.8; Est GFR (Non-African American) 55.1
[2018-09-05] MEDS: CITALOPRAM 40 MG TAB PO SCH (08:56)
[2018-09-05] MEDS: PRAVASTATIN SOD 40 MG TAB PO SCH (08:56)
[2018-09-05] MEDS: IRBESARTAN 150 MG TAB PO SCH (08:56)
[2018-09-05] MEDS: TIOTROPIUM BROMIDE 5 PUFF/90 MCG INH INH SCH (08:58)
[2018-09-05] MEDS: BUDESONIDE/FORMOTEROL FUMARATE 160/4.5 60 PUFFS/INHALER INH SCH ×2 (09:02→20:35)
[2018-09-05] MEDS ORDERED: IOVERSOL 100ml IV PRN (09:29)
--- NOTE | 2018-09-05 09:52 | Hospitalist Progress Note ---
Date of Service September 05, 2018 Assessment & Plan (1) Duodenal bulb ulcer: large ulcerated duodenal bulb with clot could be a contained perforation vitals stable, abdomen is soft, mildly tender will transfer to PCU for close monitoring consult general surgery stat for surgical recommendations strict NPO will transfuse an additional one unit in anticipation of needing surgery d/w Dr. Field, he feels she needs surgery, IR would not be helpful (2) Anemia: significant drop in Hb to 6.7 last night, up 9 today with two units transfused down to 8.4 this afternoon BP stable, HR trending up will transfuse additional one unit PRBC in anticipation of needing surgery one more unit on hold source of anemia is acute blood loss from GI bleeding, large duodenal ulcer in bulb GI recommends surgical consult Protonix 40mg IV BID strict NPO (3) Age-related osteoporosis with current pathological fracture: fracture of sacral ala bilaterally fell two weeks ago pain control PT/OT no pain today, improving quickly (4) Back pain: As in HPI, it is somewhat difficult to assess the chronicity of the pain as the patient reports months of ongoing pain, but gives some indication this is worse now. Also now with urinary retention, though no weakness, sensation changes, or saddle anesthesia. Per patient and daughter, no known bladder issues or prior retention. MRI lumbar spine showed no cord compression, no disc herniation it confirmed insufficiency fractures of the sacral ala bilaterally suggests that worsening back pain due to osteoporosis related fractures pain control with Morphine, PT/OT ordered pain much better today (5) Urinary retention: No prior urinary issues per patient and daughter. CT a/p on 09/02 showed significant retention and likely pelvic floor prolapse. Straight cathed for >300 mL. no spinal cord issues on MRI lumbar spine no further retention after admission urinating well, no complaints no history of prolapse will continue to monitor (6) Hyponatremia: 129 on admission due to poor solute intake up to 135 today (7) COPD (chronic obstructive pulmonary disease): No wheezing on exam. No shortness of breath reported. - Continue home inhalers (8) Hypertension: BP was 130/70 at last check. - Continue home meds (9) Hypothyroidism: TSH elevated at 38 increase Synthroid to 100mcg check in 6 weeks with PCP (10) Anxiety: Very anxious per daughter. - Continue home citalopram - Added low-dose Ativan for MRI (11) DVT prophylaxis: SCDs - Low risk per calculator (12) Closed sacral fracture: (13) Dehydration: resolved with IV fluids, no further fluids needed Subjective Hb dropped to 6.7 last night, patient said she did not have any symptoms of weakness she still denies any melena, no hematochezia, no hematemesis mild lower abdominal pain and she admits to early satiety, this has been going on for some time Hb up to 9.0 this morning, vitals stable, she feels well except for some mild low back pain NPO since midnight for any possible scopes today, GI to see later CT abdomen/pelvis with what appears to be large gastric ulcer near the pylorus Review of Systems All systems reviewed & are unremarkable except as noted in HPI & below Constitutional: no fatigue and no weakness Gastrointestinal: + abdominal pain (mild, lower); no nausea, no vomiting, no constipation, no diarrhea/loose stools, no blood in stools and no melena Musculoskeletal: + back pain (lower) Physical Exam Vital Signs (Past 24 Hours): Last Vital Signs Temp 37.2 C 09/05/18 07:18 Pulse 91 H 09/05/18 07:18 Resp 16 09/05/18 07:18 BP 115/68 09/05/18 07:18 Pulse Ox 98 09/05/18 07:18 Constitutional: WD/WN, vitals as above Eyes: PERRL, conjunctivae normal, anicteric sclerae ENMT: external ear and nose normal, oropharynx normal Neck: trachea midline, no thyromegaly Respiratory: normal respiratory effort, lungs clear to auscultation Cardiovascular: RRR, no murmur, no edema Gastrointestinal (Abdomen): normal bowel sounds, soft, nontender, no hepatosplenomegaly Musculoskeletal: no cyanosis or clubbing, extremities motor strength 5/5 Skin: no rashes, warm and dry Neurologic: patellar DTR's 2+ bilat, sensation intact and PERRL, EOMI, accommodation nl, no face palsy, no dysarthria Psychiatric: A+Ox3, euthymic affect Lymphatic: no cervical or axillary lymphadenopathy Results & Data Laboratory Results Laboratory Results - last 24 hr 09/04/18 09/04/18 09/04/18 13:42 19:34 20:26 WBC RBC Hgb 7.5 L Hct 22.6 L MCV MCH MCHC RDW Std Deviation RDW Coeff of Radhika Plt Count MPV Immature Gran % (Auto) Neut % (Auto) Lymph % (Auto) [place] % (Auto) Eos % (Auto) Baso % (Auto) Immature Gran # (Auto) Neut # (Auto) Lymph # (Auto) [place] # (Auto) Eos # (Auto) Baso # (Auto) PT INR Sodium Potassium Chloride Carbon Dioxide Anion Gap BUN Creatinine Est Cr Clr Drug Dosing Est GFR ( Amer) Est GFR (Non-Af Amer) BUN/Creatinine Ratio Glucose Calcium Stool Occult Bld Scrn Negative Blood Type O Negative Blood Type Recheck Antibody Screen NEGATIVE Crossmatch See Detail 09/04/18 09/04/18 09/05/18 21:59 21:59 06:41 WBC 11.39 H RBC 2.88 L Hgb 6.7 L* 9.0 L Hct 19.2 L* 26.6 L MCV 92.4 MCH 31.3 MCHC 33.8 RDW Std Deviation 50.4 H RDW Coeff of Radhika 14.8 H Plt Count 307 MPV 8.7 Immature Gran % (Auto) 0.9 Neut % (Auto) 77.7 Lymph % (Auto) 14.8 [place] % (Auto) 5.6 Eos % (Auto) 0.8 Baso % (Auto) 0.2 Immature Gran # (Auto) 0.10 H Neut # (Auto) 8.85 H Lymph # (Auto) 1.69 [place] # (Auto) 0.64 H Eos # (Auto) 0.09 Baso # (Auto) 0.02 PT INR Sodium Potassium Chloride Carbon Dioxide Anion Gap BUN Creatinine Est Cr Clr Drug Dosing Est GFR ( Amer) Est GFR (Non-Af Amer) BUN/Creatinine Ratio Glucose Calcium Stool Occult Bld Scrn Blood Type Blood Type Recheck O Negative Antibody Screen Crossmatch 09/05/18 09/05/18 06:41 06:41 WBC RBC Hgb Hct MCV MCH MCHC RDW Std Deviation RDW Coeff of Radhika Plt Count MPV Immature Gran % (Auto) Neut % (Auto) Lymph % (Auto) [place] % (Auto) Eos % (Auto) Baso % (Auto) Immature Gran # (Auto) Neut # (Auto) Lymph # (Auto) [place] # (Auto) Eos # (Auto) Baso # (Auto) PT 12.1 H INR 1.2 H Sodium 136 Potassium 5.0 Chloride 104 Carbon Dioxide 28 Anion Gap 4.0 BUN 61 H Creatinine 0.96 Est Cr Clr Drug Dosing 33.6 Est GFR ( Amer) 63.8 Est GFR (Non-Af Amer) 55.1 BUN/Creatinine Ratio 63.4 H Glucose 89 Calcium 8.2 L Stool Occult Bld Scrn Blood Type Blood Type Recheck Antibody Screen Crossmatch Medications Administered Current Inpatient Medications Acetaminophen (Tylenol) 650 mg PO Q4H PRN PRN Reason: pain/fever Stop: 10/02/18 19:53 Last Admin: 09/04/18 16:22 Dose: 650 mg Documented by: Amlodipine Besylate (Norvasc) 5 mg PO QPM [facility] Stop: 10/02/18 20:59 Last Admin: 09/03/18 20:39 Dose: 5 mg Documented by: Aspirin (Ecotrin Ectab) 81 mg PO DAILY [facility] Stop: 10/03/18 08:59 Last Admin: 09/04/18 08:42 Dose: 81 mg Documented by: Budesonide/Formoterol Fumarate (Symbicort 160mcg/4.5mcg) 2 puffs INH BID [facility] Stop: 10/02/18 20:59 Last Admin: 09/05/18 09:02 Dose: 2 puffs Documented by: Citalopram Hydrobromide (Celexa) 40 mg PO DAILY [facility] Stop: 10/03/18 08:59 Last Admin: 09/05/18 08:56 Dose: 40 mg Documented by: Lorazepam (Ativan) 0.5 mg in 1 mls @ 1 mls/min IV Q4H PRN PRN Reason: Anxiety/Agitation Stop: 10/02/18 19:53 Prochlorperazine 5 mg/ Syringe 5 mls @ 5 mls/min IV Q6H PRN PRN Reason: Nausea And Vomiting Stop: 10/03/18 01:51 Last Admin: 09/04/18 23:29 Dose: 5 mls/min Documented by: Sodium Chloride (Nss) 250 mls @ 15 mls/hr IV .[id number] PRN PRN Reason: For Transfusion Stop: 10/04/18 20:16 Sodium Chloride (Nss) 250 mls @ 15 mls/hr IV .[id number] PRN PRN Reason: For Transfusion Stop: 10/04/18 23:27 Pantoprazole Sodium 40 mg/ (Syringe) 10 mls @ 5 mls/min IV BID [facility] Stop: 10/05/18 10:14 Ioversol (Optiray 320 100ml) 94 ml IV ONCE PRN PRN Reason: Interaction Checking Stop: 09/09/18 09:28 Last Admin: 09/05/18 09:29 Dose: 94 ml Documented by: Irbesartan (Avapro) 150 mg PO DAILY [facility] Stop: 10/03/18 08:59 Last Admin: 09/05/18 08:56 Dose: 150 mg Documented by: Levalbuterol HCl (Xopenex 1.25mg/3ml Neb) 1.25 mg INH TID PRN PRN Reason: Shortness Of Breath Or Wheezing Stop: 10/02/18 19:53 Levothyroxine Sodium (Synthroid) 100 mcg PO DAILYBB [facility] Stop: 10/04/18 06:29 Last Admin: 09/05/18 05:54 Dose: 100 mcg Documented by: Meloxicam (Mobic) 7.5 mg PO DAILY [facility] Stop: 10/03/18 08:59 Last Admin: 09/04/18 08:42 Dose: 7.5 mg Documented by: Morphine Sulfate (Morphine Sulfate) 4 mg IV Q4H PRN PRN Reason: Pain Stop: 09/16/18 19:53 Ondansetron HCl (Zofran) 4 mg IV Q6H PRN PRN Reason: Nausea Stop: 10/04/18 20:46 Last Admin: 09/04/18 21:28 Dose: 4 mg Documented by: Pravastatin Sodium (Pravachol) 40 mg PO DAILY [facility] Stop: 10/03/18 08:59 Last Admin: 09/05/18 08:56 Dose: 40 mg Documented by: Tiotropium [place] (Spiriva) 1 puffs INH DAILY [facility] Stop: 10/03/18 08:59 Last Admin: 09/05/18 08:58 Dose: 1 puffs Documented by: Tramadol HCl (Ultram) 50 mg PO Q4H PRN PRN Reason: Pain Stop: 10/05/18 09:52 (1) Closed sacral fracture Encounter type: subsequent encounter Fracture healing: with routine healing Zone of sacrum fracture: unspecified portion of sacrum Qualified Code(s): S32.10XD - Unspecified fracture of sacrum, subsequent encounter for fracture with routine healing
[2018-09-05] MEDS ORDERED: TRAMADOL HCL 50 MG TABLET PO PRN (09:53)
[2018-09-05] MEDS ORDERED: OXYCODONE HCL IR 5 MG TAB (IMMEDIATE RELEASE) PO PRN (09:57)
--- NOTE | 2018-09-05 10:05 | CT Scan Report ---
CT SCAN OF THE ABDOMEN AND PELVIS WITH IV CONTRAST CLINICAL HISTORY: Generalized abdominal pain. Acute blood loss. COMPARISON STUDY: Abdominal CT dated 09/02/2018. TECHNIQUE: Following the IV administration of 94 cc of Optiray 320, CT scan of the abdomen and pelvi s is performed from the lung bases to the proximal femora. Images are reviewed in the axial, sagittal , and coronal planes. IV contrast was administered without complication. A dose lowering technique wa s utilized adhering to the principles of ALARA. CT DOSE: 247.12 mGy.cm FINDINGS: Lung bases: The heart is normal in size and without pericardial effusion. There are coronary artery c alcifications. A tiny hiatal hernia is identified. Fat-containing Bochdalek hernias are seen at both lung bases. Emphysematous change is noted. There is bibasilar scarring/atelectasis. No airspace conso lidation or pleural effusion is seen. There is a 12 mm focus of irregular nodularity/scarring in the right lower lobe seen on image #1. A 3 mm nodule is seen in the left lower lobe on image #41. Liver: The contrast-enhanced liver is normal in size, contour, and attenuation. There is no intrahepa tic biliary ductal dilatation. The hepatic veins and portal veins are patent. Gallbladder: Cholelithiasis is noted. There is no CT evidence of acute cholecystitis. Spleen: Normal in size and attenuation. There are scattered calcified splenic granulomas. Pancreas: Unremarkable. Adrenal glands: Unremarkable. Kidneys: The contrast enhanced kidneys demonstrate cortical atrophy. There is fullness of the renal c ollecting system bilaterally which has improved from previous. No hydronephrosis is identified. The k idneys enhance symmetrically. There is a retroaortic left renal vein. Abdominal vasculature: There is advanced atherosclerotic calcification of the abdominal aorta. There is a bilobed abdominal aortic aneurysm. The more superior component is located at the level of the re nal arteries and measures 4.0 x 4.5 cm (AP times transverse). The infrarenal component measures 3.3 x 3.3 cm. Stomach and bowel: There is wall thickening and hyperemia identified involving the gastric pylorus is with surrounding inflammatory change. There are scattered colonic diverticula without CT evidence of acute diverticulitis. Colonic fecal retention is observed. No bowel obstruction is seen. The appendi x is not identified. Peritoneum: There is no intraperitoneal free air or abdominal ascites. Lymphadenopathy: None. Pelvic viscera: The bladder is distended but otherwise grossly unremarkable. The uterus is surgically absent. No adnexal lesion is seen. Findings suggest pelvic floor prolapse. Skeletal structures: The skeletal structures are osteopenic. Moderate lumbosacral spondylosis is obse rved. No lytic or blastic lesions are seen. There is advanced arthritic change involving the left hip , with deformity/flattening of the femoral head as well as postoperative change. Bursal fluid is note d around the left hip. There is chronic posttraumatic deformity of the left pubic ring. Again seen ar e bilateral sacral insufficiency fractures. IMPRESSION: 1. There is wall thickening and hyperemia involving the gastric pylorus with surrounding inflammatory change. The appearance is concerning for peptic ulcer disease or a severe gastritis. Consider endosc opy for further assessment. 2. No intraperitoneal free air is seen. 3. There is mild fullness of the renal collecting systems bilaterally. This has improved from previou s and there is no hydronephrosis on today's examination. 4. There is unchanged appearance of a a bilobed infrarenal abdominal aortic aneurysm as detailed abov e. This measures up to 4.0 x 4.5 cm. 5. Emphysema. 6. Cholelithiasis without CT evidence of acute cholecystitis. 7. Again seen is a 12 mm focus of irregular nodularity in the right lower lobe. This is likely relate d to scarring/atelectasis. Follow-up with a dedicated chest CT in 3 months time is again recommended for reassessment. 8. Bilateral sacral insufficiency fractures are again noted. 9. Additional findings as above. Electronically signed by: Tyler Coffman M.D. 09/05/2018 10:04 AM
[2018-09-05] MEDS: PANTOprazole 40 MG in SYRINGE 0 ML IV SCH ×2 (10:37→20:34)
[2018-09-05 14:13] LABS: Hematocrit (blood only) 24.1 % (37-47); Hemoglobin 8.4 g/dL (12.0-16.0)
[2018-09-05 14:31] LABS: Bilirubin Direct 0.3 mg/dl (0-0.2); Bilirubin,Total 0.9 mg/dl (0.2-1)
[2018-09-05] MEDS ORDERED: SODIUM CHLORIDE 0.9% 250 ML IV PRN ×2 (15:12→17:29)
--- NOTE | 2018-09-05 15:16 | Anesthesiology Consultation ---
Date of Service September 05, 2018 Assessment & Plan (1) Encounter for pre-operative examination: Chart Review Chart Review: Acceptable Risk for Surgery Consults Requested none ASA ASA4 Proposed Anesthesia Anesthesia Type: MAC Risk / Benefits Reviewed With: PT / POA / Parent / Guardian, Accepts Plan and Informed Consent Obtained NPO Date Last Intake of Fluids: 09/03/18 Time Last Intake of Fluids: 18:00 Date Last Intake of Solids: 09/03/18 Time Last Intake of Solids: 18:00 History Surgery Operation Date: 09/05/18 09:15 Proposed Procedures p Esophagogastroduodenoscopy Dr Rashida Field Height/Weight Height: 5 ft 3 in Weight: 47.1 kg Allergies Allergy/AdvReac Type Severity Reaction Status Date / Time bupropion [From Wellbutrin] Allergy Mild Unknown Unverified 09/02/18 14:48 hydrochlorothiazide Allergy Mild Unknown Unverified 09/02/18 14:48 [From Avalide] irbesartan [From Avalide] Allergy Mild Unknown Unverified 09/02/18 14:48 roflumilast [From Daliresp] Allergy Mild Unknown Unverified 09/02/18 14:48 Medications Home Medications Medication Instructions Recorded Confirmed Last Taken amlodipine 5 mg PO QPM 09/02/18 09/02/18 Unknown aspirin [Aspir-81] 81 mg PO DAILY 09/02/18 09/02/18 Unknown budesonide-formoterol [Symbicort] 2 puff INHALATION BID 09/02/18 09/02/18 Unknown calcium carbonate [Calcium 600] 600 mg PO QPM 09/02/18 09/02/18 Unknown cinnamon bark [Cinnamon] 1,000 mg PO BID 09/02/18 09/02/18 Unknown citalopram 40 mg PO DAILY 09/02/18 09/02/18 Unknown irbesartan 150 mg PO DAILY 09/02/18 09/02/18 Unknown levalbuterol HCl 1.25 mg INHALATION TID PRN 09/02/18 09/02/18 Unknown levothyroxine 75 mcg PO DAILY 09/02/18 09/02/18 Unknown meloxicam 7.5 mg PO DAILY 09/02/18 09/02/18 Unknown omega 7-wzv-mmg-fish oil [Fish Oil] 1 cap PO DAILY 09/02/18 09/02/18 Unknown oxycodone-acetaminophen [Percocet] 1 tab PO Q6H PRN 09/02/18 09/02/18 Unknown pravastatin 40 mg PO DAILY 09/02/18 09/02/18 Unknown tiotropium bromide [Spiriva 2 puff INHALATION DAILY 09/02/18 09/02/18 Unknown Respimat] Active Medications Generic Name Dose Route Start Last Admin Trade Name Freq PRN Reason Stop Dose Admin Acetaminophen 650 mg 09/02/18 19:54 09/04/18 16:22 Tylenol PO 10/02/18 19:53 650 mg Q4H PRN Administration pain/fever Amlodipine Besylate 5 mg 09/02/18 21:00 09/03/18 20:39 Norvasc PO 10/02/18 20:59 5 mg QPM MARGARITA Administration Aspirin 81 mg 09/03/18 09:00 09/04/18 08:42 Ecotrin Ectab PO 10/03/18 08:59 81 mg DAILY MARGARITA Administration Budesonide/Formoterol Fumarate 2 puffs 09/02/18 21:00 09/05/18 09:02 Symbicort 160mcg/4.5mcg INH 10/02/18 20:59 2 puffs BID MARGARITA Administration Citalopram Hydrobromide 40 mg 09/03/18 09:00 09/05/18 08:56 Celexa PO 10/03/18 08:59 40 mg DAILY MARGARITA Administration Prochlorperazine 5 mg/ Syringe 5 mls @ 5 mls/min 09/03/18 01:52 09/04/18 23:29 IV 10/03/18 01:51 5 mls/min Q6H PRN Administration Nausea And Vomiting Pantoprazole Sodium 40 mg/ 10 mls @ 5 mls/min 09/05/18 10:15 09/05/18 10:37 Syringe IV 10/05/18 10:14 5 mls/min BID MARGARIAT Administration Ioversol 94 ml 09/05/18 09:29 09/05/18 09:29 Optiray 320 100ml IV 09/09/18 09:28 94 ml ONCE PRN Administration Interaction Checking Irbesartan 150 mg 09/03/18 09:00 09/05/18 08:56 Avapro PO 10/03/18 08:59 150 mg DAILY MARGARITA Administration Levothyroxine Sodium 100 mcg 09/04/18 06:30 09/05/18 05:54 Synthroid PO 10/04/18 06:29 100 mcg DAILYBB MARGARITA Administration Meloxicam 7.5 mg 09/03/18 09:00 09/04/18 08:42 Mobic PO 10/03/18 08:59 7.5 mg DAILY MARGARITA Administration Morphine Sulfate 4 mg 09/02/18 19:54 09/05/18 10:28 Morphine Sulfate IV 09/16/18 19:53 4 mg Q4H PRN Administration Pain Ondansetron HCl 4 mg 09/04/18 20:47 09/04/18 21:28 Zofran IV 10/04/18 20:46 4 mg Q6H PRN Administration Nausea Pravastatin Sodium 40 mg 09/03/18 09:00 09/05/18 08:56 Pravachol PO 10/03/18 08:59 40 mg DAILY MARGARITA Administration Tiotropium [place] 1 puffs 09/03/18 09:00 09/05/18 08:58 Spiriva INH 10/03/18 08:59 1 puffs DAILY MARGARITA Administration Past Medical History Medical History Anxiety COPD (chronic obstructive pulmonary disease) Hypertension Hypothyroidism Osteopenia Past Family History Family History Father Hypertension Past Surgical History Surgical History S/P AAA (abdominal aortic aneurysm) repair Past Anesthesia History No Hx of Anesthesia Complications and No Family Hx of Anesthesia Complications History of PONV No Motion Sickness Screening History of Motion Sickness: No Social History Smoking Status: Former smoker Hx Alcohol Use: No Hx Substance Use: No Exercise / Class Metabolic Activity II 4-5 Yardwork/Stairs/Walk up hill Physical Exam Vital Signs Last Vital Signs Temp 99.1 F 09/05/18 14:51 Pulse 102 H 09/05/18 14:51 Resp 20 09/05/18 14:51 BP 114/67 09/05/18 14:51 Pulse Ox 97 09/05/18 14:51 ENMT Mouth: + dentures Thyromental Distance: > or= 3.5 Finger Breadths Mallampati Class: II Neck normal visual inspection Respiratory normal respiratory effort Auscultation: lungs clear to auscultation bilaterally Cardiovascular Rate/Rhythm: regular rhythm and + tachycardic Testing Electrocardiogram Date: 09/02/18 Findings: + NSR @ (69 bpm) Chest X-Ray Date: 09/02/18 Atherosclerosis of the aortic arch. Cardiac silhouette normal in size. Hyperinflated lungs. Few scattered calcified granulomata. No focal opacity. No lateral view was obtained for the current exam. No pleural effusion or pneumothorax. Degenerative changes of the thoracic spine. Surgical clips project over the epigastrium. Laboratory Results 09/05/18 13:59 09/05/18 06:41 Blood Type O Negative 09/04/18 20:26 Antibody Screen NEGATIVE 09/04/18 20:26 PT 12.1 Seconds (9.0-12.0) H 09/05/18 06:41 INR 1.2 (0.9-1.1) H 09/05/18 06:41 APTT 30.7 Seconds (21.0-31.0) 09/02/18 14:52 Urine Color Yellow 09/02/18 17:00 Urine Appearance Clear (Clear) 09/02/18 17:00 Urine pH 7.0 (4.5-7.5) 09/02/18 17:00 Ur Specific [place] 1.017 (1.000-1.030) 09/02/18 17:00 Urine Protein Negative (Negative) 09/02/18 17:00 Urine Glucose (UA) Negative (Negative) 09/02/18 17:00 Urine Ketones Negative (Negative) 09/02/18 17:00 Urine Nitrite Negative (Negative) 09/02/18 17:00 Ur Leukocyte Esterase 1+ (Negative) H 09/02/18 17:00 Urine WBC (Auto) 1-5 /hpf (0-5) 09/02/18 17:00 Urine RBC (Auto) 0-4 /hpf (0-4) 09/02/18 17:00 U Hyaline Cast (Auto) 0 /lpf (0-5) 09/02/18 17:00 U Epithel Cells (Auto) 5-10 /lpf (0-5) H 09/02/18 17:00 Urine Bacteria (Auto) Negative (Negative) 09/02/18 17:00
[2018-09-05] MEDS ORDERED: SODIUM CHLORIDE 0.9% 1000ML 1,000 ML IV SCH (15:30)
--- NOTE | 2018-09-05 15:31 | History & Physical Report ---
Date of Service September 05, 2018 History of Present Illness Chief Complaint: abnl CT Primary Care Provider: GEOFF Brian For EGD Allergies Allergy/AdvReac Type Severity Reaction Status Date / Time bupropion [From Wellbutrin] Allergy Mild Unknown Unverified 09/02/18 14:48 hydrochlorothiazide Allergy Mild Unknown Unverified 09/02/18 14:48 [From Avalide] irbesartan [From Avalide] Allergy Mild Unknown Unverified 09/02/18 14:48 roflumilast [From Daliresp] Allergy Mild Unknown Unverified 09/02/18 14:48 Home Medications Home Medications Medication Instructions Recorded Confirmed Type amlodipine 5 mg PO QPM 09/02/18 09/02/18 History aspirin [Aspir-81] 81 mg PO DAILY 09/02/18 09/02/18 History budesonide-formoterol [Symbicort] 2 puff INHALATION BID 09/02/18 09/02/18 History calcium carbonate [Calcium 600] 600 mg PO QPM 09/02/18 09/02/18 History cinnamon bark [Cinnamon] 1,000 mg PO BID 09/02/18 09/02/18 History citalopram 40 mg PO DAILY 09/02/18 09/02/18 History irbesartan 150 mg PO DAILY 09/02/18 09/02/18 History levalbuterol HCl 1.25 mg INHALATION TID PRN 09/02/18 09/02/18 History levothyroxine 75 mcg PO DAILY 09/02/18 09/02/18 History meloxicam 7.5 mg PO DAILY 09/02/18 09/02/18 History omega 8-epn-rdq-fish oil [Fish Oil] 1 cap PO DAILY 09/02/18 09/02/18 History oxycodone-acetaminophen [Percocet] 1 tab PO Q6H PRN 09/02/18 09/02/18 History pravastatin 40 mg PO DAILY 09/02/18 09/02/18 History tiotropium bromide [Spiriva 2 puff INHALATION DAILY 09/02/18 09/02/18 History Respimat] Past Med/Surg History Medical History Anxiety COPD (chronic obstructive pulmonary disease) Hypertension Hypothyroidism Osteopenia Surgical History S/P AAA (abdominal aortic aneurysm) repair Family History Father Hypertension Social History Communication Ability: Effective Beliefs That Will Affect Care: None marital status: / Current Living Situation: Family current occupational status: retired Other Information That Helps Us Care for You: No Feels Safe at Home: Yes Safety Concerns: Feels Safe At This Time Smoking Status: Former smoker Hx Alcohol Use: No Hx Substance Use: No Physical Exam Vital Signs (Past 24 Hours): Last Vital Signs Temp 37.3 C 09/05/18 15:17 Pulse 108 H 09/05/18 15:17 Resp 16 09/05/18 15:17 BP 135/70 09/05/18 15:17 Pulse Ox 98 09/05/18 15:17 Constitutional: + thin Respiratory: normal respiratory effort Cardiovascular: Rate/Rhythm: regular rate and regular rhythm Gastrointestinal (Abdomen): Percussion/Palpation: abdomen soft
--- NOTE | 2018-09-05 16:00 | GI REPORT ---
Patient Name: Jennifer Rodriguez Procedure Date: 09/05/2018 3:41 PM Date of : 1935 Admit Type: Inpatient Age: 83 Gender: Female Attending MD: Efrne Field MD Procedure: Upper GI endoscopy Providers: Efren Field MD Referring MD: Referred Self Indications: Acute post hemorrhagic anemia, Abnormal CT of the GI tract Medicines: Propofol total dose 110 mg IV, Lidocaine 60 mg IV, Phenylephrine 100 mcg IV Complications: No immediate complications. Estimated Blood Loss: Estimated blood loss was minimal. Procedure: Pre-Anesthesia Assessment: - Prior to the procedure, a History and Physical was performed, and patient medications, allergies and sensitivities were reviewed. The patient's tolerance of previous anesthesia was reviewed. - The risks and benefits of the procedure and the sedation options and risks were discussed with the patient. All questions were answered and informed consent was obtained. After obtaining informed consent, the endoscope was passed under direct vision. Throughout the procedure, the patient's blood pressure, pulse, and oxygen saturations were monitored continuously. The Endoscope was introduced through the mouth, and advanced to the duodenal bulb. The upper GI endoscopy was accomplished without difficulty. The patient tolerated the procedure well. Findings: The Z-line was regular and was found 38 cm from the incisors. The examined esophagus was normal. The entire examined stomach was normal. One partially obstructing oozing cratered duodenal ulcer with adherent clot was found in the duodenal bulb. The lesion was 30 mm in largest dimension. Perforation of the bowel wall cannot be ruled out. Impression: - Z-line regular, 38 cm from the incisors. - Normal esophagus. - Normal stomach. - One partially obstructing oozing duodenal ulcer with adherent clot. NSAID induced etiology. Perforation of the bowel wall cannot be ruled out. - No specimens collected. Recommendation: - Return patient to [facility] for ongoing care. - Refer to a surgeon today. Efren Field M.D. Efren Field MD 09/05/2018 3:59:45 PM This report has been signed electronically. Note Initiated On: 09/05/2018 3:41 PM Number of Addenda: 0 I attest to the content of the Intraoperative Record and orders documented therein, exceptions below {[id number]}
[2018-09-05] MEDS ORDERED: LIDOCAINE HCL 2% 2 ML VIAL/AMP(20MG/ML) INFIL ONE (16:05)
[2018-09-05] MEDS ORDERED: PHENYLEPHRINE 100MCG/ML 5ML SYR ONE (16:05)
[2018-09-05] MEDS ORDERED: PROPOFOL IV EMULSION 10 MG/ML 20 ML VIAL IV ONE (16:06)
--- NOTE | 2018-09-05 16:20 | Consultation Report ---
DATE OF CONSULTATION: 09/05/2018 GI CONSULT NOTE REASON FOR EVALUATION: Abnormal CAT scan and acute blood loss anemia. HISTORY OF PRESENT ILLNESS: The patient is an 83-year-old who has chronic back pain, has been on meloxicam, who presented to the hospital with back pain on September 02. The patient underwent a CAT scan to evaluate this and was found to have an abnormality around the gastric antrum or duodenal area suggesting an ulceration. She also dropped her hemoglobin 5 grams during her hospital stay, but did not throw up any blood or have any visible blood in her stools. Her stool did test positive for blood and a GI consultation was obtained. PAST MEDICAL HISTORY: Remarkable for urinary retention, hyponatremia, COPD, hypertension, hypothyroidism, anxiety, osteopenia. MEDICATIONS: Per list. ALLERGIES: WELLBUTRIN, AVALIDE, DALIRESP. FAMILY HISTORY: Positive for hypertension in her father. SOCIAL HISTORY: The patient is a , lives with her family, feels safe at home. Former smoker, no alcohol use. REVIEW OF SYSTEMS: Positive for back pain. PHYSICAL EXAMINATION: GENERAL: The patient is thin, but in no acute distress. VITAL SIGNS: Normal. She is afebrile. LUNGS: Showed decreased breath sounds. HEART: Showed a normal S1 and S2. Regular rate and rhythm. ABDOMEN: Soft, nontender. IMPRESSION: The patient has abnormal CT scan with a drop in hemoglobin. She is on aspirin and meloxicam without a proton pump inhibitor. I strongly suspect she has an ulcer. The patient has been started on Protonix and we will schedule her for an EGD for further evaluation.
--- NOTE | 2018-09-05 16:37 | Anesthesiology Progress Note ---
Date of Service September 05, 2018 Anesthesia Post Procedure Vital Signs Vital Signs: Temp Pulse Pulse Resp BP BP BP 09/05/18 16:30 103 H 16 119/71 09/05/18 16:15 105 H 16 121/67 09/05/18 16:00 104 H 16 119/71 09/05/18 15:17 99.1 F 108 H 16 135/70 09/05/18 14:51 99.1 F 102 H 20 114/67 09/05/18 07:18 99.0 F 91 H 16 115/68 09/05/18 05:45 99.3 F 80 16 156/72 H 09/05/18 04:34 99.0 F 84 16 157/73 H 09/05/18 03:50 98.8 F 85 16 148/67 H 09/05/18 03:49 99.1 F 88 16 122/66 09/05/18 03:37 98.2 F 92 H 20 147/64 H 09/05/18 03:06 99.0 F 85 16 139/70 09/05/18 02:36 99.0 F 89 16 160/76 H 09/05/18 01:36 99.0 F 82 16 152/73 H 09/05/18 01:06 99.0 F 81 16 135/69 09/05/18 00:36 99.1 F 81 16 132/61 09/05/18 00:21 99.0 F 75 16 123/66 09/05/18 00:01 99.3 F 86 20 150/69 H 09/04/18 23:41 98.8 F 86 16 150/69 H 09/04/18 22:57 99.0 F 80 16 154/69 H 09/04/18 22:26 98.8 F 79 20 155/69 H 09/04/18 19:15 98 H 110/45 L Pulse Ox 09/05/18 16:30 99 09/05/18 16:15 99 09/05/18 16:00 100 09/05/18 15:17 98 09/05/18 14:51 97 09/05/18 07:18 98 09/05/18 05:45 97 09/05/18 04:34 97 09/05/18 03:50 99 09/05/18 03:49 97 09/05/18 03:37 98 09/05/18 03:06 98 04/04/19 02:36 98 09/05/18 01:36 98 09/05/18 01:06 96 09/05/18 00:36 97 09/05/18 00:21 97 09/05/18 00:01 97 09/04/18 23:41 97 09/04/18 22:57 97 09/04/18 22:26 98 09/04/18 19:15 98 Pain Intensity Lower Back: Pain Intensity: 2 Notes Mental Status: alert / awake / arousable and participated in evaluation Patient Amnestic to Procedure: Yes Nausea / Vomiting: adequately controlled Pain: adequately controlled Airway Patency, RR, SpO2: stable & adequate BP & HR: stable & adequate Hydration State: stable & adequate Anesthetic Complications: no major complications apparent and Pt Satisfied with anesthetic care
--- NOTE | 2018-09-05 18:10 | Surgery Consultation ---
Date of Consultation September 05, 2018 Assessment & Plan (1) Duodenal bulb ulcer: penetrating duodenal ulcer likely secondary to mobic currently stable stop all nsaids. limit narcotics ( d/w patient/family and nursing) agree with IV protonix will add carafate QID recommend picc line/starting TPN. needs protein and will likely not be eating well in near future supportive care. transfuse prn. will follow closely. poor surgical candidate and would only operate for perforation or uncontrolled bleeding d/w Dr. Toledo. (2) COPD (chronic obstructive pulmonary disease): History of Present Illness Attending Physician: Americo Toledo, DO History of Present Illness pt with a several month history of "not doing well". has avascular necrosis of hip and taking mobic since February. For several weeks now has had nausea, abdominal pain, back pain, poor po intake and has lost about 18 lbs. denies emesis. perhaps saw some dark stools. pt not a great historian. family is at bedside providing some history as well. currently denies abdominal pain or nausea. Allergies Allergy/AdvReac Type Severity Reaction Status Date / Time bupropion [From Wellbutrin] Allergy Mild Unknown Unverified 09/02/18 14:48 hydrochlorothiazide Allergy Mild Unknown Unverified 09/02/18 14:48 [From Avalide] irbesartan [From Avalide] Allergy Mild Unknown Unverified 09/02/18 14:48 roflumilast [From Daliresp] Allergy Mild Unknown Unverified 09/02/18 14:48 Home Medications Home Medications Medication Instructions Recorded Confirmed Type amlodipine 5 mg PO QPM 09/02/18 09/02/18 History aspirin [Aspir-81] 81 mg PO DAILY 09/02/18 09/02/18 History budesonide-formoterol [Symbicort] 2 puff INHALATION BID 09/02/18 09/02/18 History calcium carbonate [Calcium 600] 600 mg PO QPM 09/02/18 09/02/18 History cinnamon bark [Cinnamon] 1,000 mg PO BID 09/02/18 09/02/18 History citalopram 40 mg PO DAILY 09/02/18 09/02/18 History irbesartan 150 mg PO DAILY 09/02/18 09/02/18 History levalbuterol HCl 1.25 mg INHALATION TID PRN 09/02/18 09/02/18 History levothyroxine 75 mcg PO DAILY 09/02/18 09/02/18 History meloxicam 7.5 mg PO DAILY 09/02/18 09/02/18 History omega 7-ypj-piy-fish oil [Fish Oil] 1 cap PO DAILY 09/02/18 09/02/18 History oxycodone-acetaminophen [Percocet] 1 tab PO Q6H PRN 09/02/18 09/02/18 History pravastatin 40 mg PO DAILY 09/02/18 09/02/18 History tiotropium bromide [Spiriva 2 puff INHALATION DAILY 09/02/18 09/02/18 History Respimat] Patient History Medical History Anxiety COPD (chronic obstructive pulmonary disease) Hypertension Hypothyroidism Osteopenia Surgical History S/P AAA (abdominal aortic aneurysm) repair Family History Father Hypertension Social History Communication Ability: Effective Beliefs That Will Affect Care: None marital status: / Current Living Situation: Family current occupational status: retired Other Information That Helps Us Care for You: No Feels Safe at Home: Yes Safety Concerns: Feels Safe At This Time Smoking Status: Former smoker Hx Alcohol Use: No Hx Substance Use: No Review of Systems see HPI. failure to thrive. nausea. poor po intake. abdominal pain. hip pain. back pain. weightloss. ? melena. Physical Exam Vital Signs (Past 24 Hours): Last Vital Signs Temp 36.3 C L 09/05/18 17:31 Pulse 108 H 09/05/18 17:31 Resp 20 09/05/18 17:31 BP 137/88 09/05/18 17:31 Pulse Ox 99 09/05/18 17:31 Physical Exam: alert. oriented. nad. family at bedside Heent: wnl's. Heart:Reg/tachy ( 104) lungs: decrease bs's bases abd: soft. mild RUQ ttp. no g/r/r ext: no c/c/e
[2018-09-05] MEDS: SUCRALFATE 1 GM TAB PO SCH (20:34)
[2018-09-05] MEDS: AMLODIPINE BESYLATE 5 MG TAB PO SCH (20:35)
[2018-09-05] MEDS ORDERED: Nursing to Pharmacy Communication ONE (21:09)
[2018-09-05 21:46] LABS: Hematocrit (blood only) 26.3 % (37-47); Hemoglobin 9.1 g/dL (12.0-16.0)
[2018-09-06] MEDS: ACETAMINOPHEN 325 MG TAB PO PRN (02:26)
[2018-09-06] MEDS: LEVOTHYROXINE SODIUM 100 MCG TABLET PO SCH (06:27)
[2018-09-06] MEDS: CITALOPRAM 40 MG TAB PO SCH (07:41)
[2018-09-06] MEDS: IRBESARTAN 150 MG TAB PO SCH (07:42)
[2018-09-06] MEDS: SUCRALFATE 1 GM TAB PO SCH ×2 (07:43→15:28)
[2018-09-06] MEDS: PANTOprazole 40 MG in SYRINGE 0 ML IV SCH (07:45)
[2018-09-06] MEDS: PRAVASTATIN SOD 40 MG TAB PO SCH (07:46)
[2018-09-06] MEDS: TIOTROPIUM BROMIDE 5 PUFF/90 MCG INH INH SCH (07:47)
[2018-09-06] MEDS: BUDESONIDE/FORMOTEROL FUMARATE 160/4.5 60 PUFFS/INHALER INH SCH (07:47)
[2018-09-06] MEDS ORDERED: TPN/PPN CONSULT PHARMACY SCH (08:20)
[2018-09-06 08:25] LABS: Hemoglobin 8.7 g/dL (12.0-16.0); Mean Corpuscular Hgb Conc 34.8 g/dL (32-36); Mean Corpuscular Volume 92.9 fL (80-100); Mean Platelet Volume 7.9 fL (7.4-10.4); Platelet Count 263 K/uL (130-400); RDW Coefficient of Variation 15.4 % (11.5-14.5); RDW Standard Deviation 51.7 fL (36.4-46.3); Red Blood Count 2.69 M/uL (4.2-5.4); White Blood Count 6.98 K/uL (4.8-10.8)
--- NOTE | 2018-09-06 08:44 | Surgery Progress Note ---
Date of Service September 06, 2018 Assessment & Plan (1) Duodenal bulb ulcer: H&H stable, WBC normal cont Protonix, carafate TPN to start today, can have clears seen with Dr. Chapa as above. clinically doing well. will follow closely. Johnna covering for weekend. Subjective no abdominal pain, sitting in chair, would like something to drink Physical Exam Vital Signs (Past 24 Hours): Last Vital Signs Temp 37.0 C 09/06/18 07:26 Pulse 78 09/06/18 07:26 Resp 18 09/06/18 07:26 BP 137/68 09/06/18 07:26 Pulse Ox 97 09/06/18 07:26 Gastrointestinal (Abdomen): Percussion/Palpation: abdomen soft; abdomen nont zhao
[2018-09-06 09:07] LABS: BUN Creatinine Ratio 40.7 (10-20); Calcium 8.3 mg/dl (8.5-10.1); Creatinine Clr Calc Pharmacy 40.8 ml/min; Est GFR (African American) 80.8; Est GFR (Non-African American) 69.7; Potassium 4.3 mmol/L (3.5-5.1)
[2018-09-06] MEDS ORDERED: SODIUM CHLORIDE 0.9% 250 ML IV PRN ×4 (10:31→14:56)
[2018-09-06 10:32] LABS: Magnesium 2.1 mg/dl (1.8-2.4); Phosphorus 2.7 mg/dl (2.5-4.9)
[2018-09-06] MEDS ORDERED: SODIUM CHLORIDE 0.9% 1000ML 250 ML IV ONE (11:05)
[2018-09-06] MEDS ORDERED: MoRPHine SULFATE 2 MG/ML CARP IV PRN (11:10)
--- NOTE | 2018-09-06 11:11 | Pharmacy Report ---
Pharmacy PN Initial Consult - Date of Service September 06, 2018 - Scope Pharmacy has been consulted to manage parenteral nutrition orders and order appropriate labs. As part of the Nutrition Support Team guidelines, pharmacy will work in conjunction with dietary when determining the patients caloric needs. - Subjective The patient is a 83 year old F admitted on 09/02/18 18:44 for intractable back pain, suprapubic pain and urinary retention. Patient is to receive parenteral nutrition for partially obstructing, cratered, oozing duodenal ulcer w/ adherent clot in the setting of anticipated poor PO intake and weight loss over the last 1 year. Pertinent PMH: * hyponatremia * hypothyroidism * COPD * hypertension * AAA repair * osteopenia - Objective Height: 5 ft 3 in Weight: 47.1 kg Diet: Clear Liquid Vascular Access:: none currently Intake & Output (Last 24Hrs): Intake & Output 09/04/18 09/05/18 09/06/18 09/07/18 06:59 06:59 06:59 06:59 Intake Total 780 / 780 1284 / 1284 310 / 310 Output Total 1175 / 1175 1100 / 1100 700 / 700 Balance -395 / -395 184 / 184 -390 / -390 Weight 47.1 kg 47.1 kg Laboratory Data (Last 24 Hrs):: 09/05/18 09/06/18 09/06/18 13:59 08:13 08:13 Sodium 139 Potassium 4.3 Chloride 109 H Carbon Dioxide 28 BUN 32 H Creatinine 0.79 Glucose 94 Calcium 8.3 L Phosphorus 2.7 Magnesium 2.1 Total Bilirubin 0.9 Recent Pertinent Medications:: pantoprazole IV drip levothyroxine irbesartan levothyroxine ondansetron Nutrition Assessment:: Please refer to the Notes section of the EMR for the most recent sandwich board carrier note. - Assessment Patient admitted on 09/02 for intractable back pain, suprapubic pain and urinary retention. Patient's H/H dropped acutely during hospitalization and EGD performed which revealed partially obstructing, cratered, oozing duodenal ulcer with adherent clot. A CT scan of the abdomen also showed gastric wall thickening and surrounding inflammatory changes, without intrabdominal free air or ascites. Surgery felt that patient would not likely be able to meet her PO needs in the near future and recommended PICC line and TPN. Consulted with Dietary who states patient was tolerating 75-100% of her ordered diet prior to the acute events of this hospitalization. Patient did report losing ~18 lbs over the last year due to abdominal pain and nausea. Given she was tolerating a diet only a day or two ago it perhaps delaying TPN would be reasonable as she was requesting something to drink this AM and will be ordered Clears today. Making adequate urine, VSS, sats in upper 90's on room air. E-lytes reviewed, no supplementation required. Will proceed with a PPN order for today, caloric provision will be low (~9kcal/kg/day) and volume will be ~30cc/kg to begin. - Plan For day 1 of PN administration, the following will be ordered: Macronutrients Amino acids 30 grams/day Dextrose 100 grams/day Lipids 0 grams/day Micronutrients Combined electrolytes 0 mL - contains 35 mEq Na, 20 meq K, 4.5 mEq Ca, 5 mEq Mg, 35 mEq Cl, 29.5 mEq acetate per 20 mL Sodium phosphate 0 MMol Sodium chloride 12.5 mEq Sodium acetate 0 mEq Potassium phosphate 15 mMol Potassium chloride 0 mEq Potassium acetate 30 mEq Magnesium sulfate 12.18 mEq Calcium gluconate 0 mEq Multivitamins 10 mL Trace Elements 1 mL Additional additives: Thiamine 100mg, Folic Acid 1mg Total volume 1500 mL to be infused over 24 hrs will provide 460 kcal/day Final osmolarity ~600 mOsm/L (maximum for PPN is 600 mOsm/L) Labs to be ordered per PN order protocol Pharmacy will follow and adjust parenteral nutrition orders on a daily basis. Thank you.
--- NOTE | 2018-09-06 11:15 | Hospitalist Progress Note ---
Date of Service September 06, 2018 Assessment & Plan (1) Hemorrhagic shock: see below aggressively transfusing patient due to actively bleeding duodenal ulcer getting 5th unit of PRBC currently with 6th available two large bore IV placed mari placed for accurate urine output measurments (2) Duodenal bulb ulcer: large ulcerated duodenal bulb with clot could be a contained perforation transferred to ICU this morning after she started to have hematemesis and melena blood pressure dropped to 80's systolic at times, mental status was clear transfused 2 more units after 3 units yesterday blood pressure holding in 90's systolic, HR is 80's discussed with Dr. Field, would not recommend repeat endoscopy as ulcer is so large discussed with Dr. Chapa, would not operate as she is too high risk, recommend trying to go to tertiary care for interventional radiology discussed with [facility] over the phone, they will accept patient to medical ICU with GI and surgical consultations will continue Protonix drip, NSS, transfusing one unit (3) Anemia: acute blood loss anemia from bleeding duodenal ulcer last Hb is 8.7 after 4 units transfused total another unit going in now prior to discharge (4) Age-related osteoporosis with current pathological fracture: fracture of sacral ala bilaterally fell two weeks ago pain control PT/OT no pain today, improving quickly (5) AAA (abdominal aortic aneurysm): h/o open repair of note, it is in vacinity of the duodenum no mention of connection between ulcer and AAA, CT with IV contrast (6) Back pain: As in HPI, it is somewhat difficult to assess the chronicity of the pain as the patient reports months of ongoing pain, but gives some indication this is worse now. Also now with urinary retention, though no weakness, sensation changes, or saddle anesthesia. Per patient and daughter, no known bladder issues or prior retention. MRI lumbar spine showed no cord compression, no disc herniation it confirmed insufficiency fractures of the sacral ala bilaterally suggests that worsening back pain due to osteoporosis related fractures pain control with Morphine, PT/OT ordered pain much better today (7) Urinary retention: No prior urinary issues per patient and daughter. CT a/p on 09/02 showed significant retention and likely pelvic floor prolapse. Straight cathed for >300 mL. no spinal cord issues on MRI lumbar spine no further retention after admission urinating well, no complaints no history of prolapse will continue to monitor (8) Hyponatremia: 129 on admission due to poor solute intake up to 135 today (9) COPD (chronic obstructive pulmonary disease): No wheezing on exam. No shortness of breath reported. - Continue home inhalers (10) Hypertension: BP was 130/70 at last check. - Continue home meds (11) Hypothyroidism: TSH elevated at 38 increase Synthroid to 100mcg check in 6 weeks with PCP (12) Anxiety: Very anxious per daughter. - Continue home citalopram - Added low-dose Ativan for MRI (13) DVT prophylaxis: SCDs - Low risk per calculator (14) Closed sacral fracture: (15) Dehydration: resolved with IV fluids, no further fluids needed Subjective patient started vomiting blood this morning, several episodes, c/o back pain now starting to move bowels Hb 8.7 this morning blood pressure dropped below 90 systolic, HR in the 100's called ICU to assess the patient in room 210 recommended immediate transfer to ICU discussed with Dr. Chapa, he will continue to monitor the situation updated patient's daughter over the phone BMP this morning was normal Review of Systems All systems reviewed & are unremarkable except as noted in HPI & below Gastrointestinal: + abdominal pain, + nausea, + vomiting, + hematemesis and + blood in stools; no constipation Physical Exam Vital Signs (Past 24 Hours): Last Vital Signs Temp 37.0 C 09/06/18 07:26 Pulse 70 09/06/18 08:00 Resp 18 09/06/18 07:26 BP 137/68 09/06/18 07:26 Pulse Ox 97 09/06/18 07:26 Constitutional: well developed, well nourished and + ill appearing; no altered mental status Eyes: PERRL, conjunctivae normal, anicteric sclerae ENMT: external ear and nose normal, oropharynx normal Neck: trachea midline, no thyromegaly Respiratory: normal respiratory effort, lungs clear to auscultation Cardiovascular: Rate/Rhythm: regular rhythm and + tachycardic Heart Sounds: normal S1 and normal S2; no murmur Vessels: normal peripheral pulses Extremities: no edema Gastrointestinal (Abdomen): Inspection/Auscultation: abdomen normal to inspection Percussion/Palpation: + abdomen tender (epigastric) and abdomen soft Musculoskeletal: no cyanosis or clubbing, extremities motor strength 5/5 Skin: no rashes, warm and dry Neurologic: patellar DTR's 2+ bilat, sensation intact and PERRL, EOMI, accommodation nl, no face palsy, no dysarthria Psychiatric: A+Ox3, euthymic affect Lymphatic: no cervical or axillary lymphadenopathy Results & Data Laboratory Results Laboratory Results - last 24 hr 09/04/18 09/05/18 09/05/18 20:26 13:59 13:59 WBC RBC Hgb 8.4 L Hct 24.1 L MCV MCH MCHC RDW Std Deviation RDW Coeff of Radhika Plt Count MPV Sodium Potassium Chloride Carbon Dioxide Anion Gap BUN Creatinine Est Cr Clr Drug Dosing Est GFR ( Amer) Est GFR (Non-Af Amer) BUN/Creatinine Ratio Glucose Calcium Phosphorus Magnesium Total Bilirubin 0.9 Direct Bilirubin 0.3 H Lactate Dehydrogenase Blood Type O Negative Antibody Screen NEGATIVE Crossmatch See Detail 09/05/18 09/05/18 09/06/18 13:59 21:36 08:13 WBC 6.98 RBC 2.69 L Hgb 9.1 L 8.7 L Hct 26.3 L 25.0 L MCV 92.9 MCH 32.3 MCHC 34.8 RDW Std Deviation 51.7 H RDW Coeff of Radhika 15.4 H Plt Count 263 MPV 7.9 Sodium Potassium Chloride Carbon Dioxide Anion Gap BUN Creatinine Est Cr Clr Drug Dosing Est GFR ( Amer) Est GFR (Non-Af Amer) BUN/Creatinine Ratio Glucose Calcium Phosphorus Magnesium Total Bilirubin Direct Bilirubin Lactate Dehydrogenase 179 Blood Type Antibody Screen Crossmatch 09/06/18 09/06/18 08:13 08:13 WBC RBC Hgb Hct MCV MCH MCHC RDW Std Deviation RDW Coeff of Radhika Plt Count MPV Sodium 139 Potassium 4.3 Chloride 109 H Carbon Dioxide 28 Anion Gap 3.0 BUN 32 H Creatinine 0.79 Est Cr Clr Drug Dosing 40.8 Est GFR ( Amer) 80.8 Est GFR (Non-Af Amer) 69.7 BUN/Creatinine Ratio 40.7 H Glucose 94 Calcium 8.3 L Phosphorus 2.7 Magnesium 2.1 Total Bilirubin Direct Bilirubin Lactate Dehydrogenase Blood Type Antibody Screen Crossmatch Medications Administered Current Inpatient Medications Acetaminophen (Tylenol) 650 mg PO Q4H PRN PRN Reason: pain/fever Stop: 10/02/18 19:53 Last Admin: 09/06/18 02:26 Dose: 650 mg Documented by: Budesonide/Formoterol Fumarate (Symbicort 160mcg/4.5mcg) 2 puffs INH BID MARGARITA Stop: 10/02/18 20:59 Last Admin: 09/06/18 07:47 Dose: 2 puffs Documented by: Citalopram Hydrobromide (Celexa) 40 mg PO DAILY MARGARITA Stop: 10/03/18 08:59 Last Admin: 09/06/18 07:41 Dose: 40 mg Documented by: Lorazepam (Ativan) 0.5 mg in 1 mls @ 1 mls/min IV Q4H PRN PRN Reason: Anxiety/Agitation Stop: 10/02/18 19:53 Prochlorperazine 5 mg/ Syringe 5 mls @ 5 mls/min IV Q6H PRN PRN Reason: Nausea And Vomiting Stop: 10/03/18 01:51 Last Admin: 09/04/18 23:29 Dose: 5 mls/min Documented by: Sodium Chloride (Nss) 250 mls @ 15 mls/hr IV .[id number] PRN PRN Reason: For Transfusion Stop: 10/04/18 20:16 Sodium Chloride (Nss) 250 mls @ 15 mls/hr IV .[id number] PRN PRN Reason: For Transfusion Stop: 10/04/18 23:27 Sodium Chloride (Nss) 250 mls @ 15 mls/hr IV .[id number] PRN PRN Reason: For Transfusion Stop: 10/05/18 17:28 Sodium Chloride (Nss) 250 mls @ 15 mls/hr IV .[id number] PRN PRN Reason: For Transfusion Stop: 10/06/18 10:30 Pantoprazole Sodium 40 mg/ (Dextrose) 100 mls @ 20 mls/hr IV Q5H MARGARITA Stop: 10/06/18 10:59 Sodium Chloride (Nss 1000ml) 250 mls @ 999 mls/hr IV .Q16M ONE Stop: 09/06/18 11:20 Last Admin: 09/06/18 11:10 Dose: 999 mls/hr Documented by: Sodium Chloride (Nss 1000ml) 1,000 mls @ 100 mls/hr IV .Q10H MARGARITA Stop: 10/06/18 11:06 Sodium Chloride (Nss) 250 mls @ 15 mls/hr IV .[id number] PRN PRN Reason: For Transfusion Stop: 10/06/18 11:07 Ioversol (Optiray 320 100ml) 94 ml IV ONCE PRN PRN Reason: Interaction Checking Stop: 09/09/18 09:28 Last Admin: 09/05/18 09:29 Dose: 94 ml Documented by: Levalbuterol HCl (Xopenex 1.25mg/3ml Neb) 1.25 mg INH TID PRN PRN Reason: Shortness Of Breath Or Wheezing Stop: 10/02/18 19:53 [facility] Stop: 10/04/18 06:29 Last Admin: 09/06/18 06:27 Dose: 100 mcg Documented by: Miscellaneous Information (Pharmacy Tpn/Ppn Consult Active) 1 ea N/A UD [facility] Stop: 10/06/18 08:19 Morphine Sulfate (Morphine Sulfate) 2 mg IV Q4H PRN PRN Reason: Pain Stop: 09/16/18 19:53 Nutrition (Parenteral) (Custom Peripheral Pn) 1 bag IV TODAY@1600 MARGARITA; Protocol Stop: 09/07/18 15:59 Ondansetron HCl (Zofran) 4 mg IV Q6H PRN PRN Reason: Nausea Stop: 10/04/18 20:46 Last Admin: 09/04/18 21:28 Dose: 4 mg Documented by: Pravastatin Sodium (Pravachol) 40 mg PO DAILY [facility] Stop: 10/03/18 08:59 Last Admin: 09/06/18 07:46 Dose: 40 mg Documented by: Sucralfate (Carafate Tab) 1 gm PO QID [facility] Stop: 10/05/18 20:59 Last Admin: 09/06/18 07:43 Dose: 1 gm Documented by: Tiotropium [place] (Spiriva) 1 puffs INH DAILY [facility] Stop: 10/03/18 08:59 Last Admin: 09/06/18 07:47 Dose: 1 puffs Documented by: (1) Closed sacral fracture Encounter type: subsequent encounter Fracture healing: with routine healing Zone of sacrum fracture: unspecified portion of sacrum Qualified Code(s): S32.10XD - Unspecified fracture of sacrum, subsequent encounter for fracture wi th routine healing
[2018-09-06] MEDS ORDERED: SODIUM CHLORIDE 0.9% 1000ML 1,000 ML IV SCH (11:30)
[2018-09-06] MEDS: PANTOprazole 40 MG in DEXTROSE 5% 100 ML IV SCH ×2 (11:38→16:19)
[2018-09-06] MEDS ORDERED: fentaNYL citrate 100 MCG/2 ML VIAL IV PRN (11:53)
[2018-09-06] MEDS ORDERED: fentaNYL DRIP 1,250 MCG/250 ML BAG IV SCH (12:00)
--- NOTE | 2018-09-06 13:02 | Critical Care Consultation ---
Date of Consultation September 06, 2018 Assessment & Plan (1) Duodenal bulb ulcer: Neuro- awake alert CV-hemorrhagic shock. aggressive blood and fluids. may need vasopressors. maintain 2 large bore IVs Pulmonary- sat well on RA ID- no signs infection Renal- cr ok GI- upper GI bleed likely from duodenal ulcer. pantoprazole. may need rescope or surgical intervention Heme- anemia due to blood loss. transfuse as needed. SCD proph Endocrine- blood sugars controlled Dispo- transfer to ICU for hemodynamic monitoring I have personally spent 35 minutes of critical care time in the direct management of this patient. This is a life/limb threatening event. This includes time spent evaluating patient, direct bedside care, chart review, placing orders, interpretation of diagnostic studies, discussion with consultants, patient, and/or family members regarding treatment decisions, as well as other required patient management activities. This time is exclusive of all separately billable procedures, and teaching time and separate from and in addition to any other critical care service time. History of Present Illness Attending Physician: Americo Toledo DO History of Present Illness 83 y/o female with a history of COPD, HTN, hypothyroidism who presented on 09/02 due to back pain. she was found to have a large duodenal ulcer with adherent clot on EGD yesterday. This morning she vomited 100 of blood and hs been having bloody stools. she is now hypotensive. She complains of general weakness. no current nause. + back pain. Allergies Allergy/AdvReac Type Severity Reaction Status Date / Time bupropion [From Wellbutrin] Allergy Mild Unknown Unverified 09/02/18 14:48 hydrochlorothiazide Allergy Mild Unknown Unverified 09/02/18 14:48 [From Avalide] irbesartan [From Avalide] Allergy Mild Unknown Unverified 09/02/18 14:48 roflumilast [From Daliresp] Allergy Mild Unknown Unverified 09/02/18 14:48 Home Medications Home Medications Medication Instructions Recorded Confirmed Type amlodipine 5 mg PO QPM 09/02/18 09/02/18 History aspirin [Aspir-81] 81 mg PO DAILY 09/02/18 09/02/18 History budesonide-formoterol [Symbicort] 2 puff INHALATION BID 09/02/18 09/02/18 History calcium carbonate [Calcium 600] 600 mg PO QPM 09/02/18 09/02/18 History cinnamon bark [Cinnamon] 1,000 mg PO BID 09/02/18 09/02/18 History citalopram 40 mg PO DAILY 09/02/18 09/02/18 History irbesartan 150 mg PO DAILY 09/02/18 09/02/18 History levalbuterol HCl 1.25 mg INHALATION TID PRN 09/02/18 09/02/18 History levothyroxine 75 mcg PO DAILY 09/02/18 09/02/18 History meloxicam 7.5 mg PO DAILY 09/02/18 09/02/18 History omega [id number]-fish oil [Fish Oil] 1 cap PO DAILY 09/02/18 09/02/18 History oxycodone-acetaminophen [Percocet] 1 tab PO Q6H PRN 09/02/18 09/02/18 History pravastatin 40 mg PO DAILY 09/02/18 09/02/18 History tiotropium bromide [Spiriva 2 puff INHALATION DAILY 09/02/18 09/02/18 History Respimat] Patient History Medical History Anxiety COPD (chronic obstructive pulmonary disease) Hypertension Hypothyroidism Osteopenia Surgical History S/P AAA (abdominal aortic aneurysm) repair Family History Father Hypertension Social History Communication Ability: Effective Beliefs That Will Affect Care: None marital status: / Current Living Situation: Family current occupational status: retired Other Information That Helps Us Care for You: No Feels Safe at Home: Yes Safety Concerns: Feels Safe At This Time Smoking Status: Former smoker Hx Alcohol Use: No Hx Substance Use: No Review of Systems Constitutional: no fevers no chills no weight loss Eyes: no blurry or double vision EENT: no sore throat, no congestion Respiratory: no cough no shortness of breath Cardiovascular: no chest pain no palpitations GI: no abdominal pain, + nausea, + vomiting, +bloody stool Gu: no dysuria, no frequency MSK: no joint pain, no muscle aches Skin: no rash Neuro: no headache, no dizziness, no focal weakness Endocrine: no heat or cold intolerance heme: no easy bruising, no lymphadenopathy Psych: no depression, no anxiety Physical Exam Vital Signs (Past 24 Hours): Last Vital Signs Temp 36.6 C 09/06/18 12:17 Pulse 84 09/06/18 12:19 Resp 23 09/06/18 12:19 BP 91/56 L 09/06/18 12:19 Pulse Ox 100 09/06/18 12:19 Physical Exam: Constitutional: Comfortable NAD HEENT: normocephalic atraumatic. MMM. no cervical lymphadenopathy. conjunctiva normal CV: RRR nl s1,s2 no murmurs rubs or gallops Lungs: clear to auscultation bilaterally. no accessory muscle use Abd: soft nontender nondistended. normal bowel sounds Ext: no edema. no cyanosis, no clubbing Skin: warm dry Neuro: alert and oriented. moving all extremities Psych: normal mood and affect Results & Data Laboratory Results Laboratory Results - last 24 hr 09/04/18 09/05/18 09/05/18 20:26 13:59 13:59 WBC RBC Hgb 8.4 L Hct 24.1 L MCV MCH MCHC RDW Std Deviation RDW Coeff of Radhika Plt Count MPV Sodium Potassium Chloride Carbon Dioxide Anion Gap BUN Creatinine Est Cr Clr Drug Dosing Est GFR ( Amer) Est GFR (Non-Af Amer) BUN/Creatinine Ratio Glucose Calcium Phosphorus Magnesium Total Bilirubin 0.9 Direct Bilirubin 0.3 H Lactate Dehydrogenase Stool Occult Bld Scrn Blood Type O Negative Antibody Screen NEGATIVE Crossmatch See Detail 09/05/18 09/05/18 09/06/18 13:59 21:36 08:13 WBC 6.98 RBC 2.69 L Hgb 9.1 L 8.7 L Hct 26.3 L 25.0 L MCV 92.9 MCH 32.3 MCHC 34.8 RDW Std Deviation 51.7 H RDW Coeff of Radhika 15.4 H Plt Count 263 MPV 7.9 Sodium Potassium Chloride Carbon Dioxide Anion Gap BUN Creatinine Est Cr Clr Drug Dosing Est GFR ( Amer) Est GFR (Non-Af Amer) BUN/Creatinine Ratio Glucose Calcium Phosphorus Magnesium Total Bilirubin Direct Bilirubin Lactate Dehydrogenase 179 Stool Occult Bld Scrn Blood Type Antibody Screen Crossmatch 09/06/18 09/06/18 09/06/18 08:13 08:13 11:50 WBC RBC Hgb Hct MCV MCH MCHC RDW Std Deviation RDW Coeff of Radhika Plt Count MPV Sodium 139 Potassium 4.3 Chloride 109 H Carbon Dioxide 28 Anion Gap 3.0 BUN 32 H Creatinine 0.79 Est Cr Clr Drug Dosing 40.8 Est GFR ( Amer) 80.8 Est GFR (Non-Af Amer) 69.7 BUN/Creatinine Ratio 40.7 H Glucose 94 Calcium 8.3 L Phosphorus 2.7 Magnesium 2.1 Total Bilirubin Direct Bilirubin Lactate Dehydrogenase Stool Occult Bld Scrn Positive H Blood Type Antibody Screen Crossmatch
[2018-09-06] MEDS ORDERED: LACTATED RINGER'S 1,000 ML IV ONE (13:03)
[2018-09-06] MEDS ORDERED: SODIUM CHLORIDE 0.9% 1000ML 1,000 ML IV ONE (13:03)
--- NOTE | 2018-09-06 13:58 | Surgery Progress Note ---
Date of Service September 06, 2018 Assessment & Plan (1) Duodenal bulb ulcer: pt with re-bleed this AM. currently receiving her 2 nd unit of PRBC's and IVF. SBP in 80's. pulse 85 I do not think pt would do well with ex-lap and should be last resort. Best option would prob be transfer with attempt at embolization. could consider repeat EGD with intervention. If these fail and she continues to bleed then we would be forced to operate. discussed with DrEnriqueta's Azeb, Tre and Fabiana who is covering this weekend. will attempt to contact family. Subjective pt awake. denies abdominal pain. had bloody emesis earlier today followed by some bloody bm's. Physical Exam Vital Signs (Past 24 Hours): Last Vital Signs Temp 36.4 C L 09/06/18 13:22 Pulse 88 09/06/18 13:22 Resp 20 09/06/18 13:22 BP 74/41 L 09/06/18 13:22 Pulse Ox 99 09/06/18 13:22 Physical Exam: alert/answers appropriately abd: soft. nt. nd. no g/r/r
--- NOTE | 2018-09-06 14:50 | Discharge Summary ---
Date of Service September 06, 2018 Admission HPI Per Admitting Provider 83yo F w/ hx of back pain, HTN, and hypothryoidism who presents with intractable back and suprapubic pain. Patient is a fairly poor historian and cannot tell me the exact chronicity of her back pain; however, her daughter relates that the pain is been ongoing for months. The patient was in [place] from March to July, and the daughter reports that she would frequently call crying due to her pain. When asked about the pain, the patient reports the pain has been ongoing for this duration, but does seem to relate that the pain is somewhat worse in the last few days. She notes the pain is worse with twisting movements or trying to stand. When lying still in bed, the pain is manageable. She also notes some suprapubic pain which she is unclear of the etiology of. She denies dysuria or polyuria. In the emergency department she was noted to be retaining significant amounts of urine, and therefore was straight cathed with over 300 mL of urine returned. She denies fevers, chills, abdominal pain, nausea, vomiting, shortness of breath. Admission Exam Per Admitting Provider Constitutional: WD/WN, vitals as above Eyes: EOM intact bilaterally; no conjunctival abnormality ENMT: external ear and nose normal, oropharynx normal Neck: trachea midline, no thyromegaly normal visual inspection Respiratory: normal respiratory effort, lungs clear to auscultation no respiratory distress Cardiovascular: RRR, no murmur, no edema Gastrointestinal (Abdomen): Inspection/Auscultation: abdomen normal to inspection; abdomen not distended Musculoskeletal: no cyanosis or clubbing, extremities motor strength 5/5 Spine: + lumbar spinal tenderness and + straight leg raise positive Skin: no rashes, warm and dry Neurologic: moves all extremities and awake Psychiatric: Orientation: alert, oriented to person and cooperative Principal Diagnosis Hemorrhagic shock due to bleeding duodenal ulcer Discharge Exam Constitutional WD/WN, vitals as above well developed, well nourished and + ill appearing; no altered mental status Eyes PERRL, conjunctivae normal, anicteric sclerae ENMT external ear and nose normal, oropharynx normal Nose: + external nose abnormality (NGT in place) Neck trachea midline, no thyromegaly Respiratory normal respiratory effort, lungs clear to auscultation Cardiovascular RRR, no murmur, no edema Rate/Rhythm: regular rhythm and + tachycardic Heart Sounds: normal S1 and normal S2; no murmur Vessels: normal peripheral pulses Extremities: no edema Gastrointestinal (Abdomen) normal bowel sounds, soft, nontender, no hepatosplenomegaly Inspection/Auscultation: abdomen normal to inspection Percussion/Palpation: + abdomen tender (epigastric) and abdomen soft Musculoskeletal no cyanosis or clubbing, extremities motor strength 5/5 Skin no rashes, warm and dry Neurologic patellar DTR's 2+ bilat, sensation intact and PERRL, EOMI, accommodation nl, no face palsy, no dysarthria Psychiatric A+Ox3, euthymic affect Lymphatic no cervical or axillary lymphadenopathy Discharge Data Allergies Allergy/AdvReac Type Severity Reaction Status Date / Time bupropion [From Wellbutrin] Allergy Mild Unknown Unverified 09/02/18 14:48 hydrochlorothiazide Allergy Mild Unknown Unverified 09/02/18 14:48 [From Avalide] irbesartan [From Avalide] Allergy Mild Unknown Unverified 09/02/18 14:48 roflumilast [From Daliresp] Allergy Mild Unknown Unverified 09/02/18 14:48 Consultations 09/02/18 18:03 ED Decision to Admit Stat 09/04/18 20:15 Consult Gastroenterology Routine 09/05/18 16:04 Consult General Surgery Stat Procedures Performed Operation Date: 09/05/18 09:15 Actual Procedures p Esophagogastroduodenoscopy - Efren Field Ordered Studies 09/02/18 14:38 CT abd pelvis IV con only Stat 09/02/18 19:54 MR lumbar spine wo con Stat 09/05/18 08:13 CT abd pelvis IV con only Urgent Hospital Course (1) Hemorrhagic shock: see below aggressively transfusing patient due to actively bleeding duodenal ulcer getting 5th unit of PRBC currently with 6th available two large bore IV placed mari placed for accurate urine output measurments (2) Duodenal bulb ulcer: large ulcerated duodenal bulb with clot could be a contained perforation transferred to ICU this morning after she started to have hematemesis and melena blood pressure dropped to 80's systolic at times, mental status was clear transfused 2 more units after 3 units yesterday blood pressure holding in 90's systolic, HR is 80's discussed with Dr. Field, would not recommend repeat endoscopy as ulcer is so large discussed with Dr. Chapa, would not operate as she is too high risk, recommend trying to go to tertiary care for interventional radiology discussed with [facility] over the phone, they will accept patient to medical ICU with GI and surgical consultations will continue Protonix drip, NSS, transfusing one unit (3) Anemia: acute blood loss anemia from bleeding duodenal ulcer last Hb is 8.7 after 4 units transfused total another unit going in now prior to discharge (4) Age-related osteoporosis with current pathological fracture: fracture of sacral ala bilaterally fell two weeks ago pain control PT/OT no pain today, improving quickly (5) AAA (abdominal aortic aneurysm): h/o open repair of note, it is in vacinity of the duodenum no mention of connection between ulcer and AAA, CT with IV contrast (6) Back pain: As in HPI, it is somewhat difficult to assess the chronicity of the pain as the patient reports months of ongoing pain, but gives some indication this is worse now. Also now with urinary retention, though no weakness, sensation changes, or saddle anesthesia. Per patient and daughter, no known bladder issues or prior retention. MRI lumbar spine showed no cord compression, no disc herniation it confirmed insufficiency fractures of the sacral ala bilaterally suggests that worsening back pain due to osteoporosis related fractures pain control with Morphine, PT/OT ordered pain much better today (7) Urinary retention: No prior urinary issues per patient and daughter. CT a/p on 09/02 showed significant retention and likely pelvic floor prolapse. Straight cathed for >300 mL. no spinal cord issues on MRI lumbar spine no further retention after admission urinating well, no complaints no history of prolapse will continue to monitor (8) Hyponatremia: 129 on admission due to poor solute intake up to 135 today (9) COPD (chronic obstructive pulmonary disease): No wheezing on exam. No shortness of breath reported. - Continue home inhalers (10) Hypertension: BP was 130/70 at last check. - Continue home meds (11) Hypothyroidism: TSH elevated at 38 increase Synthroid to 100mcg check in 6 weeks with PCP (12) Anxiety: Very anxious per daughter. - Continue home citalopram - Added low-dose Ativan for MRI (13) DVT prophylaxis: SCDs - Low risk per calculator (14) Closed sacral fracture: (15) Dehydration: resolved with IV fluids, no further fluids needed Total Time Total Time Spent Total Time Spent (In Minutes): 70 minutes Total Time Includes: Examination of the Patient, Discharge Planning, Medication Reconciliation, Communication With Other Providers ([facility], Dr. Chapa, Dr. Bowie, Dr. Field) and Other (extensive discussions with family) Discharge Plan Discharge Items Patient Disposition: Transfer Acute Care Hospital Reason For Visit: duodenal ulcer Discharge Diagnosis: Duodenal ulcer, acute GI bleed, acute blood loss anemia Hemorrhagic shock h/o COPD, AAA s/p repair Condition: Critical Discharge Goals: Diagnostic testing and Therapeutic intervention Activity: Per 'Additional Instructions' section Non-emergency contact: Primary Care Provider Call non-emergency contact if: you have any medication questions Follow-up/Referrals: Berna Morton CRNP [Primary Care Provider] - 09/12/18 1:30 pm (Follow up appointment scheduled with Primary Care Provider, GEOFF Brian, on September 12 at 1:30pm. Please call the office if you have any questions. [phone]) Diet: Nothing by mouth Addtl Provider Instructions: transfer to [facility] Prescriptions: Discontinued citalopram 40 mg Tablet 40 mg PO DAILY RF: 0 pravastatin 40 mg Tablet 40 mg PO DAILY RF: 0 amlodipine 5 mg Tablet 5 mg PO QPM RF: 0 aspirin [Aspir-81] 81 mg Tablet,Delayed Release (Dr/Ec) 81 mg PO DAILY RF: 0 levothyroxine 75 mcg Tablet 75 mcg PO DAILY RF: 0 meloxicam 7.5 mg Tablet 7.5 mg PO DAILY RF: 0 oxycodone-acetaminophen [Percocet] 5-325 mg Tablet 1 tab PO Q6H PRN (Reason: Pain) RF: 0 calcium carbonate [Calcium 600] 600 mg calcium (1,500 mg) Tablet 600 mg PO QPM RF: 0 irbesartan 150 mg Tablet 150 mg PO DAILY RF: 0 cinnamon bark [Cinnamon] 500 mg Capsule 1,000 mg PO BID RF: 0 levalbuterol HCl 1.25 mg/0.5 mL Solution For Nebulization 1.25 mg INHALATION TID PRN (Reason: Shortness Of Breath Or Wheezing) RF: 0 Symbicort 160-4.5 mcg/actuation Hfa Aerosol Inhaler 2 puff INHALATION BID RF: 0 omega 5-[id number]-fish oil [Fish Oil] 1,000 mg (120 mg-180 mg) Capsule 1 cap PO DAILY RF: 0 Spiriva Respimat 2.5 mcg/actuation Mist 2 puff INHALATION DAILY RF: 0 Stand-Alone Forms: [facility] Discharge Orders: Discharge Order (Routine); Ordered 09/06/18 Ordered By: Americo Toledo Admission Data Admit Date/Time: 09/02/18 18:44 Attending Provider: Americo Toledo Admit Provider: Bandar Holder Primary Care Provider: Berna Morton Other Providers: Bandar Holder ; Efren Field ; Blake Chapa Service: Intensive Care Unit Other Interventions: Discharge Summary Assessment (RN) Last Done: 09/05/18 16:55
--- NOTE | 2018-09-06 15:46 | XRay Report ---
KUB HISTORY: confirm placement of NGT COMPARISON: Abdomen and pelvis CT 09/05/2018. FINDINGS: Nasogastric tube terminates in the expected location of the stomach. There are surgical cli ps within the left side of the abdomen. No renal calculi. No ureteral calculi. 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 IMPRESSION: The nasogastric tube terminates in the expected location of the stomach. Electronically signed by: Sean Pineda M.D. 09/06/2018 3:45 PM
[2018-09-06] MEDS ORDERED: CUSTOM PERIPHERAL PN IV SCH (16:00)
== END 2018-09-06 16:10 | disposition short-term general hospital (02) | DRG 542 ==
LOC: ED 14:06 → 3W 18:44 → SUATTDRO 18:44 → 3W 19:38 → 2E 09-05 17:22 → 1E 09-06 10:32

== ENCOUNTER 2018-11-09 18:04 | Inpatient (IN) ==
[2018-11-09] MEDS ORDERED: CEFEPIME 2,000 MG/20 ML VIAL IV STA (18:30)
[2018-11-09 18:35] LABS: Basophils # (auto) 0.04 K/uL (0-0.2); Basophils % (auto) 0.7 %; Eosinophils # (auto) 0.06 K/uL (0-0.5); Hematocrit (blood only) 34.7 % (37-47); Hemoglobin 11.8 g/dL (12.0-16.0); Immature Granulocytes # (auto) 0.01 K/uL (0.00-0.02); Immature Granulocytes % (auto) 0.2 %; Lymphocytes # (auto) 1.73 K/uL (1.2-3.4); Lymphocytes % (auto) 29.9 %; Mean Corpuscular Volume 92.3 fL (80-100); Mean Platelet Volume 8.8 fL (7.4-10.4); Monocytes # (auto) 0.71 K/uL (0.11-0.59); Monocytes % (auto) 12.3 %; Neutrophils # (auto) 3.24 K/uL (1.4-6.5); Neutrophils % (auto) 55.9 %; Platelet Count 345 K/uL (130-400); RDW Coefficient of Variation 16.7 % (11.5-14.5); RDW Standard Deviation 56.4 fL (36.4-46.3); Red Blood Count 3.76 M/uL (4.2-5.4); White Blood Count 5.79 K/uL (4.8-10.8)
--- NOTE | 2018-11-09 18:47 | CT Scan Report ---
CT head/brain wo con CLINICAL HISTORY: 83 years-old Female presenting with ams. TECHNIQUE: Multidetector CT imaging of the head was performed without the use of intravenous contrast . IV contrast: None. One or more dose lowering techniques were used consistent with the principles of ALARA (as low as reasonably achievable), including automatic exposure control, mA or kV adjustment t o individual patient size, and/or use of iterative reconstruction. COMPARISON: None. CT DOSE (mGy.cm): The estimated cumulative dose is 1228.53 mGy.cm. FINDINGS: Animal Control Officer topogram: Unremarkable. Proportional ventricular and sulcal prominence, likely age-related parenchymal volume loss. No hemorr grupo. Periventricular and subcortical white matter hypoattenuation, nonspecific but likely indicative of chronic small vessel ischemic change. No acute territorial infarct. No mass effect or midline annie ft. No extra-axial fluid collection. Paranasal sinuses and mastoid air cells clear. Calvarium intact. Absent [place] lenses. IMPRESSION: 1. Chronic small vessel ischemic change. No acute intracranial abnormality. Electronically signed by: Jj Hylton M.D. 11/09/2018 6:46 PM
[2018-11-09 18:53] LABS: Alanine Aminotransferase 24 U/L (12-78); Albumin Level 3.5 gm/dl (3.4-5.0); Aspartate Aminotransferase 26 U/L (15-37); BUN Creatinine Ratio 13.2 (10-20); Blood Urea Nitrogen 10 mg/dl (7-18); Calcium 9.6 mg/dl (8.5-10.1); Carbon Dioxide 30 mmol/L (21-32); Chloride 102 mmol/L (98-107); Creatinine Clr Calc Pharmacy 44.6 ml/min; Est GFR (African American) 83.3; Est GFR (Non-African American) 71.9; Glucose 86 mg/dl (70-99); Magnesium 1.7 mg/dl (1.8-2.4); Potassium 3.5 mmol/L (3.5-5.1); Sodium 139 mmol/L (136-145)
[2018-11-09 19:03] LABS: Alkaline Phosphatase 102 U/L (45-117); Bilirubin,Total 0.6 mg/dl (0.2-1); Globulin 3.5 gm/dl (2.5-4.0); Troponin I < 0.015 ng/ml (0-0.045)
--- NOTE | 2018-11-09 19:15 | XRay Report ---
XR chest 1V portable CLINICAL HISTORY: 83 years-old Female presenting with ams. TECHNIQUE: Portable upright AP view of the chest was obtained. COMPARISON: 11/04/2018. FINDINGS: Atherosclerosis of the aortic arch. Cardiac silhouette normal in size. No focal opacity. No large eff usion or pneumothorax. Osteopenia. Surgical clips project over the epigastrium. IMPRESSION: 1. No acute cardiopulmonary disease. Electronically signed by: Jj Hylton M.D. 11/09/2018 7:13 PM
[2018-11-09 19:22] LABS: Appearance Urine Clear (Clear); Bacteria Urine Automated Negative (Negative); Bilirubin Urine Negative (Negative); Blood Urine Trace (Negative); Color Urine Yellow; Epithelial Cell Urine Auto 0-5 /lpf (0-5); Glucose Urine UA Negative (Negative); Ketones Urine Negative (Negative); Leukocyte Esterase Urine Negative (Negative); Nitrite Urine Negative (Negative); Protein Urine Negative (Negative); RBC Urine Automated 0-4 /hpf (0-4); Specific Gravity Urine 1.013 (1.000-1.030); Urobilinogen Urine Negative (Negative)
[2018-11-09] MEDS ORDERED: LABETALOL HCL IV 5 MG/ML 20ML IV STA (19:23)
[2018-11-09] MEDS ORDERED: ACETAMINOPHEN 500 MG TAB PO STA (19:23)
--- NOTE | 2018-11-09 19:25 | Emergency Department Note ---
Entered by Lesley Coleman acting as a scribe for Jasson Parr M.D. History of Present Illness General Chief complaint: Altered Mental Status Source: EMS and RN notes reviewed Limitations: altered mental status History of Present Illness Onset (ago): unknown (today) Location: left and right (generalized) Pain Consistency: + constant Quality: + other (AMS) Associated symptoms: + confusion This HPI is limited secondary to the patient's altered mental status. The patient is an 83 year old female who presents to the Emergency Room with complaints of altered mental status that started today [employer]. The patient was seen in the ED yesterday for UTI symptoms. Today, the patient presents being more confused. She is repeatedly stating "it hurts" while in the room. Home Medications Home Medications Medication Instructions Recorded Confirmed Type budesonide-formoterol [Symbicort] 2 puff INHALATION BID 11/04/18 11/09/18 History citalopram [Celexa] 40 mg PO QAM 11/04/18 11/09/18 History omega 0-mds-qrj-fish oil [Fish Oil] 1 cap PO QAM 11/04/18 11/09/18 History oxycodone-acetaminophen [Percocet] 1 tab PO Q6H PRN 11/04/18 11/09/18 History pantoprazole 40 mg PO BID 11/04/18 11/09/18 History pravastatin 40 mg PO QPM 11/04/18 11/09/18 History tiotropium bromide [Spiriva with 1 cap INHALATION DAILY 11/04/18 11/09/18 History HandiHaler] acetaminophen [Tylenol Extra 500 - 1,000 mg PO Q4 PRN 11/06/18 11/09/18 History Strength] ergocalciferol (vitamin D2) 50,000 unit PO 2XWK 11/06/18 11/09/18 History [Vitamin D2] guaifenesin [Mucinex] 600 mg PO BID 11/06/18 11/09/18 History ciprofloxacin HCl [Cipro] 500 mg PO BID #14 tab 11/08/18 11/09/18 Rx levothyroxine 100 mcg PO QAM 11/08/18 11/09/18 History Allergies Allergy/AdvReac Type Severity Reaction Status Date / Time bupropion [From Wellbutrin] Allergy Mild Unknown Unverified 11/09/18 18:51 hydrochlorothiazide Allergy Mild Unknown Unverified 11/09/18 18:51 [From Avalide] irbesartan [From Avalide] Allergy Mild Unknown Unverified 11/09/18 18:51 roflumilast [From Daliresp] Allergy Mild Unknown Unverified 11/09/18 18:51 denosumab [From Prolia] Allergy Unknown Verified 11/09/18 18:51 tramadol Allergy Unknown Verified 11/09/18 18:51 Past Med/Surg History Social History Preferred Language: Pashto Communication Ability: Effective Beliefs That Will Affect Care: None marital status: / Current Living Situation: Family current occupational status: retired Feels Safe at Home: Yes Smoking Status: Unknown if ever smoked Hx Alcohol Use: No Hx Substance Use: No Review of Systems Unobtainable secondary to patient's altered mental status. Physical Exam Vital Signs Vital Signs - 24 hr 11/09/18 18:09 11/09/18 18:12 11/09/18 18:16 Temperature 36.8 C Temperature Source Oral Sepsis Recent Fever Within 48 Hours No Sepsis Action Taken by Nursing No Action Required Pulse Rate 117 H 93 H 90 Pulse Rate from SpO2 Sensor 86 88 Respiratory Rate 19 20 36 H Respiratory Effort / Characteristics Non-Labored Respiratory Depth Normal Blood Pressure 206/91 H 206/91 H Blood Pressure Mean 129 129 Pulse Oximetry 98 99 100 Oxygen Delivery Method Room Air Oxygen Flow Rate 11/09/18 18:28 11/09/18 19:03 11/09/18 19:04 Temperature Temperature Source Sepsis Recent Fever Within 48 Hours Sepsis Action Taken by Nursing Pulse Rate 94 H 96 H Pulse Rate from SpO2 Sensor Respiratory Rate 21 21 Respiratory Effort / Characteristics Respiratory Depth Blood Pressure 199/85 H Blood Pressure Mean 123 Pulse Oximetry 100 Oxygen Delivery Method Room Air Oxygen Flow Rate 100 GENERAL: Awake, alert, confused, responsive, well-appearing, in no distress. HENT: Normocephalic, atraumatic. Oropharynx unremarkable. EYES: Normal conjunctiva. Sclera non-icteric. NECK: Supple. No nuchal rigidity. RESPIRATORY: Clear to auscultation. No wheezes. Normal respiratory effort. CARDIAC: Normal rate. Normal rhythm. Extremities warm and well perfused. GI: Soft, non-distended. No tenderness to palpation. No rebound or guarding. No masses. RECTAL: Deferred. MUSCULOSKELETAL: Atraumatic. Chest examination reveals no tenderness. There is no CVA tenderness to palpation. LOWER EXTREMITIES: Calves are equal size bilaterally and non-tender. 1+ bilateral lower extremity swelling. NEURO: Normal sensorium. No sensory or motor deficits noted. No facial droop. SKIN: Warm and dry. No rash or jaundice noted. Course 1817: The patient was evaluated in room B2. A complete history and physical exam was performed. 1944: I discussed the patient's case with Dr. De Souza, [facility] Hospitalist. She agrees to evaluate the patient for further management and care. Consultations Consultation #1: I discussed the patient's case with Dr. De Souza [facility] Hospitalist. She agrees to evaluate the patient for further management and care. Time: 19:45 Medical Decision Making Differential Diagnosis Etiologies such as metabolic, infection, hypoglycemia, electrolyte abnormalities, cardiac sources, intracerebral event, toxicologic, neurologic, as well as others were entertained. Medical Records Attestation: I reviewed the patient's medical records. Home Medications Current Medication List: was personally reviewed by me Laboratory Data Attestation: I reviewed the patient's lab results. Result diagrams: 11/09/18 18:20 11/09/18 18:20 Lab Results 11/09/18 11/09/18 11/09/18 Range/Units 18:20 18:20 18:23 WBC 5.79 (4.8-10.8) K/uL RBC 3.76 L (4.2-5.4) M/uL Hgb 11.8 L (12.0-16.0) g/dL Hct 34.7 L (37-47) % MCV 92.3 (80-100) fL MCH 31.4 (25-34) pg MCHC 34.0 (32-36) g/dL RDW Std Deviation 56.4 H (36.4-46.3) fL RDW Coeff of Radhika 16.7 H (11.5-14.5) % Plt Count 345 (130-400) K/uL MPV 8.8 (7.4-10.4) fL Immature Gran % (Auto) 0.2 % Neut % (Auto) 55.9 % Lymph % (Auto) 29.9 % [place] % (Auto) 12.3 % Eos % (Auto) 1.0 % Baso % (Auto) 0.7 % Immature Gran # (Auto) 0.01 (0.00-0.02) K/uL Neut # (Auto) 3.24 (1.4-6.5) K/uL Lymph # (Auto) 1.73 (1.2-3.4) K/uL [place] # (Auto) 0.71 H (0.11-0.59) K/uL Eos # (Auto) 0.06 (0-0.5) K/uL Baso # (Auto) 0.04 (0-0.2) K/uL VBG pH (7.36-7.41) VBG pCO2 (38-50) mmHg VBG pO2 mmHg VBG HCO3 mmol/L VBG O2 Saturation % VBG Base Excess mEq/L Barometric Pressure mm/Hg Sodium 139 (136-145) mmol/L Potassium 3.5 (3.5-5.1) mmol/L Chloride 102 (98-107) mmol/L Carbon Dioxide 30 (21-32) mmol/L Anion Gap 6.0 (3-11) BUN 10 (7-18) mg/dl Creatinine 0.77 (0.6-1.2) mg/dl Est Cr Clr Drug Dosing 44.6 ml/min Est GFR ( Amer) 83.3 Est GFR (Non-Af Amer) 71.9 BUN/Creatinine Ratio 13.2 (10-20) Glucose 86 (70-99) mg/dl POC Glucose (70-99) POC Lactic Acid Shai 1.00 (0.90-1.70) mmol/L Calcium 9.6 (8.5-10.1) mg/dl Magnesium 1.7 L (1.8-2.4) mg/dl Total Bilirubin 0.6 (0.2-1) mg/dl AST 26 (15-37) U/L ALT 24 (12-78) U/L Alkaline Phosphatase 102 (45-117) U/L Troponin I < 0.015 (0-0.045) ng/ml Total Protein 7.0 (6.4-8.2) gm/dl Albumin 3.5 (3.4-5.0) gm/dl Globulin 3.5 (2.5-4.0) gm/dl Albumin/Globulin Ratio 1.0 (0.9-2) TSH 3.760 (0.300-4.500) uIu/ml Urine Color Urine Appearance (Clear) Urine pH (4.5-7.5) Ur Specific [place] (1.000-1.030) Urine Protein (Negative) Urine Glucose (UA) (Negative) Urine Ketones (Negative) Urine Blood (Negative) Urine Nitrite (Negative) Urine Bilirubin (Negative) Urine Urobilinogen (Negative) Ur Leukocyte Esterase (Negative) Urine WBC (Auto) (0-5) /hpf Urine RBC (Auto) (0-4) /hpf U Hyaline Cast (Auto) (0-5) /lpf U Epithel Cells (Auto) (0-5) /lpf Urine Bacteria (Auto) (Negative) 11/09/18 11/09/18 11/09/18 Range/Units 19:03 19:20 19:23 WBC (4.8-10.8) K/uL RBC (4.2-5.4) M/uL Hgb (12.0-16.0) g/dL Hct (37-47) % MCV (80-100) fL MCH (25-34) pg MCHC (32-36) g/dL RDW Std Deviation (36.4-46.3) fL RDW Coeff of Radhika (11.5-14.5) % Plt Count (130-400) K/uL MPV (7.4-10.4) fL Immature Gran % (Auto) % Neut % (Auto) % Lymph % (Auto) % [place] % (Auto) % Eos % (Auto) % Baso % (Auto) % Immature Gran # (Auto) (0.00-0.02) K/uL Neut # (Auto) (1.4-6.5) K/uL Lymph # (Auto) (1.2-3.4) K/uL [place] # (Auto) (0.11-0.59) K/uL Eos # (Auto) (0-0.5) K/uL Baso # (Auto) (0-0.2) K/uL VBG pH 7.47 H (7.36-7.41) VBG pCO2 41 (38-50) mmHg VBG pO2 25 mmHg VBG HCO3 29 mmol/L VBG O2 Saturation < 60.0 % VBG Base Excess 5.2 mEq/L Barometric Pressure 735.0 mm/Hg Sodium (136-145) mmol/L Potassium (3.5-5.1) mmol/L Chloride (98-107) mmol/L Carbon Dioxide (21-32) mmol/L Anion Gap (3-11) BUN (7-18) mg/dl Creatinine (0.6-1.2) mg/dl Est Cr Clr Drug Dosing ml/min Est GFR ( Amer) Est GFR (Non-Af Amer) BUN/Creatinine Ratio (10-20) Glucose (70-99) mg/dl POC Glucose 92 (70-99) POC Lactic Acid Shai (0.90-1.70) mmol/L Calcium (8.5-10.1) mg/dl Magnesium (1.8-2.4) mg/dl Total Bilirubin (0.2-1) mg/dl AST (15-37) U/L ALT (12-78) U/L Alkaline Phosphatase (45-117) U/L Troponin I (0-0.045) ng/ml Total Protein (6.4-8.2) gm/dl Albumin (3.4-5.0) gm/dl Globulin (2.5-4.0) gm/dl Albumin/Globulin Ratio (0.9-2) TSH (0.300-4.500) uIu/ml Urine Color Yellow Urine Appearance Clear (Clear) Urine pH 8.0 H (4.5-7.5) Ur Specific [place] 1.013 (1.000-1.030) Urine Protein Negative (Negative) Urine Glucose (UA) Negative (Negative) Urine Ketones Negative (Negative) Urine Blood Trace H (Negative) Urine Nitrite Negative (Negative) Urine Bilirubin Negative (Negative) Urine Urobilinogen Negative (Negative) Ur Leukocyte Esterase Negative (Negative) Urine WBC (Auto) 1-5 (0-5) /hpf Urine RBC (Auto) 0-4 (0-4) /hpf U Hyaline Cast (Auto) 1-5 (0-5) /lpf U Epithel Cells (Auto) 0-5 (0-5) /lpf Urine Bacteria (Auto) Negative (Negative) Imaging Data Radiologist's Impression: Radiology results as stated below per my review and the radiologist's interpretation: CT head/brain wo con CLINICAL HISTORY: 83 years-old Female presenting with ams. TECHNIQUE: Multidetector CT imaging of the head was performed without the use of intravenous contrast. IV contrast: None. One or more dose lowering techniques were used consistent with the principles of ALARA (as low as reasonably achievable), including automatic exposure control, mA or kV adjustment to i ndividual patient size, and/or use of iterative reconstruction. COMPARISON: None. CT DOSE (mGy.cm): The estimated cumulative dose is 1228.53 mGy.cm. 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 Proportional ventricular and sulcal prominence, likely age-related parenchymal volume loss. No hemorrhage. Periventricular and subcortical white matter hypoattenuation, nonspecific but likely indicative of chronic small vessel ischemic change. No acute territorial infarct. No mass effect or midline shift. No extra-axial fluid collection. Paranasal sinuses and mastoid air cells clear. Calvarium intact. Absent [place] lenses. IMPRESSION: 1. Chronic small vessel ischemic change. No acute intracranial abnormality. Electronically signed by: Jj Hylton M.D. 11/09/2018 6:[address] head/brain wo con CLINICAL HISTORY: 83 years-old Female presenting with ams. TECHNIQUE: Multidetector CT imaging of the head was performed without the use of intravenous contrast. IV contrast: None. One or more dose lowering techniques were used consistent with the principles of ALARA (as low as reasonably achievable), including automatic exposure control, mA or kV adjustment to individual patient size, and/or use of iterative reconstruction. COMPARISON: None. CT DOSE (mGy.cm): The estimated cumulative dose is 1228.53 mGy.cm. 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 Proportional ventricular and sulcal prominence, likely age-related parenchymal volume loss. No hemorrhage. Periventricular and subcortical white matter hypoattenuation, nonspecific but likely indicative of chronic small vessel ischemic change. No acute territorial infarct. No mass effect or midline shift. No extra-axial fluid collection. Paranasal sinuses and mastoid air cells clear. Calvarium intact. Absent [place] lenses. IMPRESSION: 1. Chronic small vessel ischemic change. No acute intracranial abnormality. Electronically signed by: Jj Hylton M.D. 11/09/2018 6:46 PM ECG Data Attestation: I personally reviewed and interpreted this ECG as follows: Indication: altered mental status Rate (beats per minute): 87 Rhythm: normal sinus Findings: + other (no T wave changes ); no PVC, no ST depression and no ST elevation Blood Pressure Blood Pressure Findings: Elevated blood pressure Blood Pressure Disposition: further management by hospitalist ROQUE Narrative Patient is an 83-year-old female history of COPD and hypertension diagnosed with UTI and seen by myself yesterday. Growing Pseudomonas and came back yesterday for change of therapy. Was transiently confused yesterday morning but upon evaluation he was back to normal. Discussed with daughter at that time and elected a trial outpatient Cipro. Patient is now significantly confused. There is no history of signs of trauma. Basic labs were repeated here as well as blood and urine cultures. No significant anemia or leukocytosis. No hyponatremia. Does not seem like hepatic encephalopathy at this time. TSH within normal limits. Negative troponin. Slight hypomagnesemia. VBG obtained, wnl. Concern for worsening confusion most likely related to UTI or medication reaction to the Cipro. Did complete a CT of the head given the change in mental status as well. No acute findings there is no focal neurological deficits but she is making nonsensical statements. Seems more like an encephalopathy again possibly due to medication versus infectious. Does not appear septic. Patient will require admission to the hospital. Hypertensive here into the 200s and given a small amount of labetalol as well as some Tylenol. She does complain of a bit of a headache but again CT was without acute findings. CT the abdomen pelvis from yesterday was noted. She did have an episode of vomiting later requiring a bit of Zofran. No evidence of hepatitis. Hospitalist contacted for admission. Impression & Plan Altered mental status, Hypertension Discharge Plan Visit Data Chief Complaint: Altered Mental Status ED Provider: Jasson Parr Discharge Problem: Altered mental status, Hypertension Patient Disposition: Being Evaluated by Hospitalist Forms Stand Alone Forms: My [facility] Prescriptions Prescriptions: No Action citalopram [Celexa] 40 mg Tablet 40 mg PO QAM RF: 0 pravastatin 40 mg Tablet 40 mg PO QPM RF: 0 oxycodone-acetaminophen [Percocet] 5-325 mg Tablet 1 tab PO Q6H PRN (Reason: Pain) RF: 0 pantoprazole 40 mg Tablet,Delayed Release (Dr/Ec) 40 mg PO BID RF: 0 Spiriva with HandiHaler 18 mcg Capsule, W/Inhalation Device 1 cap INHALATION DAILY RF: 0 Symbicort 160-4.5 mcg/actuation Hfa Aerosol Inhaler 2 puff INHALATION BID RF: 0 omega 5-hhu-ooz-fish oil [Fish Oil] 1,000 mg (120 mg-180 mg) Capsule 1 cap PO QAM RF: 0 guaifenesin [Mucinex] 600 mg Tablet Extended Release 12hr 600 mg PO BID RF: 0 acetaminophen [Tylenol Extra Strength] 500 mg Tablet 500 - 1,000 mg PO Q4 PRN (Reason: Pain) RF: 0 ergocalciferol (vitamin D2) [Vitamin D2] 50,000 unit Capsule 50,000 unit PO 2XWK RF: 0 levothyroxine 100 mcg Tablet 100 mcg PO QAM RF: 0 ciprofloxacin HCl [Cipro] 500 mg tablet 500 mg PO BID Qty: 14 RF: 0 [facility] - Discharge Problem: Altered mental status Qualifiers: Altered mental status type: delirium Qualified Code(s): R41.0 - Disorientation, unspecified Hypertension Qualifiers: Hypertension type: unspecified Qualified Code(s): I10 - Essential (primary) hypertension The scribe's documentation has been prepared under my direction and personally reviewed by me in its entirety. I confirm that the note above accurately refle cts all work, treatment, procedures, and medical decision making performed by me.
[2018-11-09 19:34] LABS: Base Excess VBG 5.2 mEq/L; HCO3 VBG 29 mmol/L; Oxygen Saturation VBG < 60.0 %; PCO2 VBG 41 mmHg (38-50); PO2 VBG 25 mmHg; pH VBG 7.47 (7.36-7.41)
[2018-11-09] MEDS ORDERED: ONDANSETRON INJ 2 MG/ML 2 ML VIAL IV STA (19:49)
[2018-11-09] MEDS ORDERED: ONDANSETRON INJ 2 MG/ML 2 ML VIAL ONE (19:49)
[2018-11-09] MEDS ORDERED: DOCUSATE SODIUM 100 MG CAP PO PRN (21:49)
[2018-11-09] MEDS ORDERED: HALOPERIDOL LACTATE 5 MG/ML 1 ML VIAL IM STA (21:49)
[2018-11-09] MEDS ORDERED: KETOROLAC TROMETHAMINE 15 MG/ML VIAL IV PRN (21:49)
[2018-11-09] MEDS ORDERED: ONDANSETRON INJ 2 MG/ML 2 ML VIAL IV PRN (21:49)
[2018-11-09] MEDS: MAGNESIUM SULFATE / D5W 1 GM/100 ML BAG IV SCH ×2 (22:37→23:45)
[2018-11-09 23:15] LABS: Folate (Folic Acid) 7.62 ng/ml (>5.38)
[2018-11-09] MEDS: PRAVASTATIN SOD 40 MG TAB PO SCH (23:50)
[2018-11-09] MEDS: guaiFENesin 600 MG TABCR PO SCH (23:51)
[2018-11-09] MEDS: BUDESONIDE/FORMOTEROL FUMARATE 160/4.5 60 PUFFS/INHALER INH SCH (23:51)
[2018-11-09] MEDS: PANTOprazole 40 MG TAB PO SCH (23:51)
--- NOTE | 2018-11-10 05:35 | History & Physical Report ---
Date of Service November 09, 2018 Assessment & Plan (1) Altered mental status: Acute delirium, ?infectious etilogy -Frequent reorientation -Haldol PRN -Fall precautions -Treatment of acute medical issues as below Present on Admission?: Yes (2) Hypertension: Elevated BP, ?HTN encephalopathy. Patient with with prior LOW BP readings. Has been markedly elevated during the month of November. She was admitted in September for hemorrhagic shock and her antihypertensive agents were stopped. She was previously on Irbesartan 150mg, Amlodipine 5mg -Improved with Labetalol -Continue to monitor -Resume antihypertensives Present on Admission?: Yes (3) COPD (chronic obstructive pulmonary disease): No respiratory distress at prsent. Adequate oxygenation and ventilation on room air -Continue Budesonide/Formoterol -Guaifenasin -Tiotropium Present on Admission?: Yes (4) Anemia: No actue blood loss. H/H 11.8/34.7 -Continue to monitor CBC Present on Admission?: Yes (5) UTI (urinary tract infection): +PSeudomonas UTI. Afebrile, non-septic in appearance -Cefepime 1gm IV q daily History of Present Illness Chief Complaint: Delirium Primary Care Provider: [facility] Jennifer Rodriguez is an 83yo C female with history of COPD, HTN, Anxiety, Hypothyroidism presenting with delirium. Today she ate breakfast and lunch at her [facility] and was reportedly doing fairly well. Developed worsening confusion and difficulty walking. She had a UA +Pseudomonas from a prior ER visit and was started on Cipro. On arrival to the ER she was afebrile, HD stable, elevated BP Allergies Allergy/AdvReac Type Severity Reaction Status Date / Time bupropion [From Wellbutrin] Allergy Mild Unknown Unverified 11/09/18 18:51 hydrochlorothiazide Allergy Mild Unknown Unverified 11/09/18 18:51 [From Avalide] irbesartan [From Avalide] Allergy Mild Unknown Unverified 11/09/18 18:51 roflumilast [From Daliresp] Allergy Mild Unknown Unverified 11/09/18 18:51 denosumab [From Prolia] Allergy Unknown Verified 11/09/18 18:51 tramadol Allergy Unknown Verified 11/09/18 18:51 Home Medications Home Medications Medication Instructions Recorded Confirmed Type budesonide-formoterol [Symbicort] 2 puff INHALATION BID 11/04/18 11/09/18 History citalopram [Celexa] 40 mg PO QAM 11/04/18 11/09/18 History omega 0-psm-qya-fish oil [Fish Oil] 1 cap PO QAM 11/04/18 11/09/18 History oxycodone-acetaminophen [Percocet] 1 tab PO Q6H PRN 11/04/18 11/09/18 History pantoprazole 40 mg PO BID 11/04/18 11/09/18 History pravastatin 40 mg PO QPM 11/04/18 11/09/18 History tiotropium bromide [Spiriva with 1 cap INHALATION DAILY 11/04/18 11/09/18 History HandiHaler] acetaminophen [Tylenol Extra 500 - 1,000 mg PO Q4 PRN 11/06/18 11/09/18 History Strength] ergocalciferol (vitamin D2) 50,000 unit PO 2XWK 11/06/18 11/09/18 History [Vitamin D2] guaifenesin [Mucinex] 600 mg PO BID 11/06/18 11/09/18 History ciprofloxacin HCl [Cipro] 500 mg PO BID #14 tab 11/08/18 11/09/18 Rx levothyroxine 100 mcg PO QAM 11/08/18 11/09/18 History Past Med/Surg History Social History Preferred Language: German Communication Ability: Effective Bit Sander Required: No Beliefs That Will Affect Care: None marital status: / Current Living Situation: Family current occupational status: retired Feels Safe at Home: Yes Safety Concerns: Feels Safe At This Time Smoking Status: Former smoker Hx Alcohol Use: No Hx Substance Use: No Review of Systems Review of Systems: Unobtainable due to cognitive status +[place] Physical Exam Physical Exam: General: patient confused, not following commands, complaining of a headache and trying to climb out of virgen Skin: warm, dry, intact, no rashes or lesions HEENT: NC/AT, PERRL, EOMI, anicteric sclera, fundoscopic exam largely normal although limited, conjunctiva without injection, external ear normal to inspection and nontender, nares patent, moist mucus membranes, dentition intact, no oropharyngeal lesions, neck supple, trachea midline, no LAD, no thyromegaly, no JVD Heart: +S1/S2, regular, 3/6 ISABELLA, no r/g Lungs: equal air entry bilaterally, no rales/rhonchi/wheezes Abd: +BS, soft, NT/ND, no masses/organomegaly/ascites Ext: warm, 2+ pulses in UE/LE bilaterally, no clubbing/cyanosis or edema Neuro: nonfocal, speech intact, no facial droop, moving all extremities on command with equal strength 5/5 Results & Data Vital Signs (Past 12 Hours) Vital Signs Temp Pulse Pulse Resp BP BP Pulse Ox 11/09/18 21:00 37.2 C 83 20 170/84 H 97 11/09/18 20:45 83 21 203/91 H 96 11/09/18 20:30 83 29 H 207/103 H 97 11/09/18 20:15 80 22 207/104 H 97 11/09/18 20:00 85 29 H 187/125 H 99 11/09/18 19:48 90 30 H 100 11/09/18 19:47 88 27 H 204/108 H 99 11/09/18 19:05 88 18 97 11/09/18 19:04 96 H 21 199/85 H 11/09/18 19:03 94 H 21 11/09/18 18:28 100 11/09/18 18:16 90 36 H 100 11/09/18 18:12 36.8 C 93 H 20 206/91 H 99 11/09/18 18:09 117 H 19 206/91 H 98 Laboratory Results Lab Results 11/09/18 11/09/18 11/09/18 Range/Units 18:20 18:20 18:23 WBC 5.79 (4.8-10.8) K/uL RBC 3.76 L (4.2-5.4) M/uL Hgb 11.8 L (12.0-16.0) g/dL Hct 34.7 L (37-47) % MCV 92.3 (80-100) fL MCH 31.4 (25-34) pg MCHC 34.0 (32-36) g/dL RDW Std Deviation 56.4 H (36.4-46.3) fL RDW Coeff of Radhika 16.7 H (11.5-14.5) % Plt Count 345 (130-400) K/uL MPV 8.8 (7.4-10.4) fL Immature Gran % (Auto) 0.2 % Neut % (Auto) 55.9 % Lymph % (Auto) 29.9 % [place] % (Auto) 12.3 % Eos % (Auto) 1.0 % Baso % (Auto) 0.7 % Immature Gran # (Auto) 0.01 (0.00-0.02) K/uL Neut # (Auto) 3.24 (1.4-6.5) K/uL Lymph # (Auto) 1.73 (1.2-3.4) K/uL [place] # (Auto) 0.71 H (0.11-0.59) K/uL Eos # (Auto) 0.06 (0-0.5) K/uL Baso # (Auto) 0.04 (0-0.2) K/uL VBG pH (7.36-7.41) VBG pCO2 (38-50) mmHg VBG pO2 mmHg VBG HCO3 mmol/L VBG O2 Saturation % VBG Base Excess mEq/L Barometric Pressure mm/Hg Sodium 139 (136-145) mmol/L Potassium 3.5 (3.5-5.1) mmol/L Chloride 102 (98-107) mmol/L Carbon Dioxide 30 (21-32) mmol/L Anion Gap 6.0 (3-11) BUN 10 (7-18) mg/dl Creatinine 0.77 (0.6-1.2) mg/dl Est Cr Clr Drug Dosing 44.6 ml/min Est GFR ( Amer) 83.3 Est GFR (Non-Af Amer) 71.9 BUN/Creatinine Ratio 13.2 (10-20) Glucose 86 (70-99) mg/dl POC Glucose (70-99) POC Lactic Acid Shai 1.00 (0.90-1.70) mmol/L Calcium 9.6 (8.5-10.1) mg/dl Phosphorus (2.5-4.9) mg/dl Magnesium 1.7 L (1.8-2.4) mg/dl Total Bilirubin 0.6 (0.2-1) mg/dl AST 26 (15-37) U/L ALT 24 (12-78) U/L Alkaline Phosphatase 102 (45-117) U/L Ammonia (11-32) umol/L Troponin I < 0.015 (0-0.045) ng/ml Total Protein 7.0 (6.4-8.2) gm/dl Albumin 3.5 (3.4-5.0) gm/dl Globulin 3.5 (2.5-4.0) gm/dl Albumin/Globulin Ratio 1.0 (0.9-2) Vitamin B12 (211-911) pg/ml Folate (>5.38) ng/ml TSH 3.760 (0.300-4.500) uIu/ml Urine Color Urine Appearance (Clear) Urine pH (4.5-7.5) Ur Specific [place] (1.000-1.030) Urine Protein (Negative) Urine Glucose (UA) (Negative) Urine Ketones (Negative) Urine Blood (Negative) Urine Nitrite (Negative) Urine Bilirubin (Negative) Urine Urobilinogen (Negative) Ur Leukocyte Esterase (Negative) Urine WBC (Auto) (0-5) /hpf Urine RBC (Auto) (0-4) /hpf U Hyaline Cast (Auto) (0-5) /lpf U Epithel Cells (Auto) (0-5) /lpf Urine Bacteria (Auto) (Negative) 11/09/18 11/09/18 11/09/18 Range/Units 19:03 19:20 19:23 WBC (4.8-10.8) K/uL RBC (4.2-5.4) M/uL Hgb (12.0-16.0) g/dL Hct (37-47) % MCV (80-100) fL MCH (25-34) pg MCHC (32-36) g/dL RDW Std Deviation (36.4-46.3) fL RDW Coeff of Radhika (11.5-14.5) % Plt Count (130-400) K/uL MPV (7.4-10.4) fL Immature Gran % (Auto) % Neut % (Auto) % Lymph % (Auto) % [place] % (Auto) % Eos % (Auto) % Baso % (Auto) % Immature Gran # (Auto) (0.00-0.02) K/uL Neut # (Auto) (1.4-6.5) K/uL Lymph # (Auto) (1.2-3.4) K/uL [place] # (Auto) (0.11-0.59) K/uL Eos # (Auto) (0-0.5) K/uL Baso # (Auto) (0-0.2) K/uL VBG pH 7.47 H (7.36-7.41) VBG pCO2 41 (38-50) mmHg VBG pO2 25 mmHg VBG HCO3 29 mmol/L VBG O2 Saturation < 60.0 % VBG Base Excess 5.2 mEq/L Barometric Pressure 735.0 mm/Hg Sodium (136-145) mmol/L Potassium (3.5-5.1) mmol/L Chloride (98-107) mmol/L Carbon Dioxide (21-32) mmol/L Anion Gap (3-11) BUN (7-18) mg/dl Creatinine (0.6-1.2) mg/dl Est Cr Clr Drug Dosing ml/min Est GFR ( Amer) Est GFR (Non-Af Amer) BUN/Creatinine Ratio (10-20) Glucose (70-99) mg/dl POC Glucose 92 (70-99) POC Lactic Acid Shai (0.90-1.70) mmol/L Calcium (8.5-10.1) mg/dl Phosphorus (2.5-4.9) mg/dl Magnesium (1.8-2.4) mg/dl Total Bilirubin (0.2-1) mg/dl AST (15-37) U/L ALT (12-78) U/L Alkaline Phosphatase (45-117) U/L Ammonia (11-32) umol/L Troponin I (0-0.045) ng/ml Total Protein (6.4-8.2) gm/dl Albumin (3.4-5.0) gm/dl Globulin (2.5-4.0) gm/dl Albumin/Globulin Ratio (0.9-2) Vitamin B12 (211-911) pg/ml Folate (>5.38) ng/ml TSH (0.300-4.500) uIu/ml Urine Color Yellow Urine Appearance Clear (Clear) Urine pH 8.0 H (4.5-7.5) Ur Specific [place] 1.013 (1.000-1.030) Urine Protein Negative (Negative) Urine Glucose (UA) Negative (Negative) Urine Ketones Negative (Negative) Urine Blood Trace H (Negative) Urine Nitrite Negative (Negative) Urine Bilirubin Negative (Negative) Urine Urobilinogen Negative (Negative) Ur Leukocyte Esterase Negative (Negative) Urine WBC (Auto) 1-5 (0-5) /hpf Urine RBC (Auto) 0-4 (0-4) /hpf U Hyaline Cast (Auto) 1-5 (0-5) /lpf U Epithel Cells (Auto) 0-5 (0-5) /lpf Urine Bacteria (Auto) Negative (Negative) 11/09/18 11/09/18 11/09/18 Range/Units 22:14 22:14 22:14 WBC (4.8-10.8) K/uL RBC (4.2-5.4) M/uL Hgb (12.0-16.0) g/dL Hct (37-47) % MCV (80-100) fL MCH (25-34) pg MCHC (32-36) g/dL RDW Std Deviation (36.4-46.3) fL RDW Coeff of Radhika (11.5-14.5) % Plt Count (130-400) K/uL MPV (7.4-10.4) fL Immature Gran % (Auto) % Neut % (Auto) % Lymph % (Auto) % [place] % (Auto) % Eos % (Auto) % Baso % (Auto) % Immature Gran # (Auto) (0.00-0.02) K/uL Neut # (Auto) (1.4-6.5) K/uL Lymph # (Auto) (1.2-3.4) K/uL [place] # (Auto) (0.11-0.59) K/uL Eos # (Auto) (0-0.5) K/uL Baso # (Auto) (0-0.2) K/uL VBG pH (7.36-7.41) VBG pCO2 (38-50) mmHg VBG pO2 mmHg VBG HCO3 mmol/L VBG O2 Saturation % VBG Base Excess mEq/L Barometric Pressure mm/Hg Sodium (136-145) mmol/L Potassium (3.5-5.1) mmol/L Chloride (98-107) mmol/L Carbon Dioxide (21-32) mmol/L Anion Gap (3-11) BUN (7-18) mg/dl Creatinine (0.6-1.2) mg/dl Est Cr Clr Drug Dosing ml/min Est GFR ( Amer) Est GFR (Non-Af Amer) BUN/Creatinine Ratio (10-20) Glucose (70-99) mg/dl POC Glucose (70-99) POC Lactic Acid Shai (0.90-1.70) mmol/L Calcium (8.5-10.1) mg/dl Phosphorus 3.1 (2.5-4.9) mg/dl Magnesium (1.8-2.4) mg/dl Total Bilirubin (0.2-1) mg/dl AST (15-37) U/L ALT (12-78) U/L Alkaline Phosphatase (45-117) U/L Ammonia 15.1 (11-32) umol/L Troponin I (0-0.045) ng/ml Total Protein (6.4-8.2) gm/dl Albumin (3.4-5.0) gm/dl Globulin (2.5-4.0) gm/dl Albumin/Globulin Ratio (0.9-2) Vitamin B12 602 (211-911) pg/ml Folate 7.62 (>5.38) ng/ml TSH (0.300-4.500) uIu/ml Urine Color Urine Appearance (Clear) Urine pH (4.5-7.5) Ur Specific [place] (1.000-1.030) Urine Protein (Negative) Urine Glucose (UA) (Negative) Urine Ketones (Negative) Urine Blood (Negative) Urine Nitrite (Negative) Urine Bilirubin (Negative) Urine Urobilinogen (Negative) Ur Leukocyte Esterase (Negative) Urine WBC (Auto) (0-5) /hpf Urine RBC (Auto) (0-4) /hpf U Hyaline Cast (Auto) (0-5) /lpf U Epithel Cells (Auto) (0-5) /lpf Urine Bacteria (Auto) (Negative) Diagnostic Findings CT head/brain wo con CLINICAL HISTORY: 83 years-old Female presenting with ams. TECHNIQUE: Multidetector CT imaging of the head was performed without the use of intravenous contrast. IV contrast: None. One or more dose lowering techniques were used consistent with the principles of ALARA (as low as reasonably achievable), including automatic exposure control, mA or kV adjustment to individual patient size, and/or use of iterative reconstruction. COMPARISON: None. CT DOSE (mGy.cm): The estimated cumulative dose is 1228.53 mGy.cm. FINDINGS: Java [employer] topogram: Unremarkable. Proportional ventricular and sulcal prominence, likely age-related parenchymal volume loss. No hemorrhage. Periventricular and subcortical white matter hypoattenuation, nonspecific but likely indicative of chronic small vessel ischemic change. No acute territorial infarct. No mass effect or midline shift. No extra-axial fluid collection. Paranasal sinuses and mastoid air cells clear. Calvarium intact. Absent [place] lenses. IMPRESSION: 1. Chronic small vessel ischemic change. No acute intracranial abnormality. Electronically signed by: Jj Hylton M.D. 11/09/2018 6:46 PM Dictated: 11/09/181843 Transcribed: 11/09/181843 XR chest 1V portable CLINICAL HISTORY: 83 years-old Female presenting with ams. TECHNIQUE: Portable upright AP view of the chest was obtained. COMPARISON: 11/04/2018. FINDINGS: Atherosclerosis of the aortic arch. Cardiac silhouette normal in size. No focal opacity. No large effusion or pneumothorax. Osteopenia. Surgical clips project over the epigastrium. IMPRESSION: 1. No acute cardiopulmonary disease. Electronically signed by: Jj Hylton M.D. 11/09/2018 7:13 PM Dictated: 11/09/181912 Transcribed: 11/09/181912 ECG Additional Comments: NSR at 87, no acute ischemic changes Code Status & VTE Plan Code Status full (1) Altered mental status Altered mental status type: delirium Qualified Code(s): R41.0 - Disorientation, unspecified (2) Hypertension Hypertension type: unspecified Qualified Code(s): I10 - Essential (primary) hypertension (3) COPD (chronic obstructive pulmonary disease) COPD type: unspecified COPD Qualified Code(s): J44.9 - Chronic obstructive pulmonary disease, unspecified (4) UTI (urinary tract infection) Hematuria presence: without hematuria Urinary tract infection type: acute cystitis Qualified Code(s): N30.00 - Acute cystitis without hematuria
[2018-11-10] MEDS: LEVOTHYROXINE SODIUM 100 MCG TABLET PO SCH (06:40)
[2018-11-10] MEDS: IRBESARTAN 150 MG TAB PO SCH (07:29)
[2018-11-10] MEDS: AMLODIPINE BESYLATE 5 MG TAB PO SCH (07:29)
[2018-11-10] MEDS: guaiFENesin 600 MG TABCR PO SCH ×2 (07:30→20:22)
[2018-11-10] MEDS: BUDESONIDE/FORMOTEROL FUMARATE 160/4.5 60 PUFFS/INHALER INH SCH ×2 (07:30→20:23)
[2018-11-10] MEDS: TIOTROPIUM BROMIDE 5 PUFF/90 MCG INH INH SCH (07:30)
[2018-11-10] MEDS: PANTOprazole 40 MG TAB PO SCH ×2 (07:30→20:23)
[2018-11-10] MEDS: CITALOPRAM 40 MG TAB PO SCH (07:31)
[2018-11-10 07:43] LABS: Basophils # (auto) 0.05 K/uL (0-0.2); Basophils % (auto) 0.9 %; Eosinophils # (auto) 0.04 K/uL (0-0.5); Eosinophils % (auto) 0.7 %; Hematocrit (blood only) 35.8 % (37-47); Hemoglobin 11.9 g/dL (12.0-16.0); Immature Granulocytes # (auto) 0.01 K/uL (0.00-0.02); Immature Granulocytes % (auto) 0.2 %; Lymphocytes % (auto) 33.3 %; Mean Corpuscular Hgb Conc 33.2 g/dL (32-36); Mean Corpuscular Volume 92.5 fL (80-100); Mean Platelet Volume 8.9 fL (7.4-10.4); Monocytes % (auto) 14.8 %; Neutrophils % (auto) 50.1 %; Platelet Count 326 K/uL (130-400); RDW Coefficient of Variation 16.7 % (11.5-14.5); RDW Standard Deviation 56.9 fL (36.4-46.3); Red Blood Count 3.87 M/uL (4.2-5.4)
[2018-11-10 08:06] LABS: BUN Creatinine Ratio 9.7 (10-20); Creatinine Clr Calc Pharmacy 41.8 ml/min; Est GFR (African American) 77.2; Est GFR (Non-African American) 66.6; Potassium 3.7 mmol/L (3.5-5.1)
[2018-11-10] MEDS ORDERED: D5NSS + 20MEQ KCL 20 MEQ/1,000 ML BAG IV SCH (15:00)
[2018-11-10] MEDS: ACETAMINOPHEN 500 MG TAB PO PRN (16:46)
[2018-11-10] MEDS: CEFEPIME 1,000 MG in SYRINGE 0 ML IV SCH (20:21)
[2018-11-10] MEDS: PRAVASTATIN SOD 40 MG TAB PO SCH (20:23)
--- NOTE | 2018-11-10 21:25 | Hospitalist Progress Note ---
Date of Service November 10, 2018 Assessment & Plan (1) Altered mental status: Recurrent episodes of delirium over the last few months per daughter in the setting of depression and/or cognitive impairment. Current episode -- either metabolic from UTI vs toxic from cipro use vs other. Treat the pseudomonas UTI. Cipro has been stopped in [place] of cefepime. I don't see any other infectious/metabolic cause for her delirium although CT from a few days ago showed gallstones and mild intra/extra-hepatic ductal diltation. Just to be complete obtain RUQ u/s - r/o cholecystitis as a cause of her confusion Of note - had markedly elevated TSH earlier this year -- now normalized. CT head this admission negative. If confusion persists consider MRI brain. Present on Admission?: Yes (2) UTI (urinary tract infection): 11/06/18 cx with pansensitive pseudomonas. Placed on cipro as outpatient. Confusion continued. Changed to cefepime at admission. Cont for now. Plan 7 days in total of Rx. Present on Admission?: Yes (3) Gallstones: No signs/symptoms of biliary tract disease. However, in light of persistent confusion and the CT findings will obtain RUQ u/s to r/o acute cholecystitis. Present on Admission?: Yes (4) Hypertension: Cont amlodipine and ARB. (5) COPD (chronic obstructive pulmonary disease): Cont inhalers. No flare at this time. (6) Anemia: Had acute blood loss anemia earlier this year. Hb was 12 a couple of days ago and appears very stable. (7) Closed sacral fracture: seen on imaging studies in early September 2018. these are OLD/CHRONIC. she has no pain from them. (8) Hypothyroidism: TSH early 2018 quite decompensated but now normalized. Cont synthroid. (9) Depression: daughter reports since the winter ?depression. this could be causing cognitive impairment. currently on celexa. consider adding additional agent. (10) DVT prophylaxis: SCDs h/o significant GI bleed earlier this year defer on chemical means for now daughter extensively updated by phone 11/10/18 Subjective patient confused during visit. ultimately was able to tell me she was in the hospital but couldn't tell me the year. knew it was Sunday however. she related to me that she "used to live in [facility]" and ultimately moved to [place] to be closer to daughter. she could not provide much other history. was rambling at times. daughter by phone states her mother moved BACK to [place] in the fall of 2017. was having hard time living independently. in winter 2018 seemed depressed and moved BACK to [place]. since then has had steady functional and mental decline. Review of Systems Review of Systems: Unobtainable due to cognitive status Physical Exam Constitutional: average body habitus and + altered mental status; no acute di stress ENMT: external ear and nose normal, oropharynx normal Respiratory: normal respiratory effort, lungs clear to auscultation Cardiovascular: Rate/Rhythm: regular rate and regular rhythm Heart Sounds: normal S1 and normal S2; no murmur Vessels: posterior tibial pulses present and dorsalis pedis pulses present; no JVD Gastrointestinal (Abdomen): normal bowel sounds, soft, nontender, no hepatosplenomegaly Musculoskeletal: with palpation of pelvis NO reproducible pain Psychiatric: Orientation: alert and oriented to person; + not oriented to place and + not oriented to time Results & Data Vital Signs (Past 12 Hours) Vital Signs Temp Pulse Resp BP Pulse Ox 11/10/18 15:05 36.6 C 78 18 183/72 H 94 11/10/18 09:46 83 160/74 H Laboratory Results Laboratory Results - last 24 hr 11/10/18 11/10/18 07:22 07:22 WBC 5.40 RBC 3.87 L Hgb 11.9 L Hct 35.8 L MCV 92.5 MCH 30.7 MCHC 33.2 RDW Std Deviation 56.9 H RDW Coeff of Radhika 16.7 H Plt Count 326 MPV 8.9 Immature Gran % (Auto) 0.2 Neut % (Auto) 50.1 Lymph % (Auto) 33.3 [place] % (Auto) 14.8 Eos % (Auto) 0.7 Baso % (Auto) 0.9 Immature Gran # (Auto) 0.01 Neut # (Auto) 2.70 Lymph # (Auto) 1.80 [place] # (Auto) 0.80 H Eos # (Auto) 0.04 Baso # (Auto) 0.05 Sodium 138 Potassium 3.7 Chloride 101 Carbon Dioxide 30 Anion Gap 7.0 BUN 8 Creatinine 0.82 Est Cr Clr Drug Dosing 41.8 Est GFR ( Amer) 77.2 Est GFR (Non-Af Amer) 66.6 BUN/Creatinine Ratio 9.7 L Glucose 94 Calcium 9.0 Diagnostic Findings urine cx - 11/06/18 - patton sensitive pseudomonas (1) Altered mental status Altered mental status type: delirium Qualified Code(s): R41.0 - Disorientation, unspecified (2) Hypertension Hypertension type: unspecified Qualified Code(s): I10 - Essential (primary) hypertension (3) COPD (chronic obstructive pulmonary disease) COPD type: unspecified COPD Qualified Code(s): J44.9 - Chronic obstructive pulmonary disease, unspecified (4) Anemia Anemia type: unspecified type Qualified Code(s): D64.9 - Anemia, unspecified (5) UTI (urinary tract infection) Hematuria presence: without hematuria Urinary tract infection type: acute cys titis Qualified Code(s): N30.00 - Acute cystitis without hematuria (6) Closed sacral fracture Encounter type: subsequent encounter Fracture healing: with routine healing Zone of sacrum fracture: unspecified portion of sacrum Qualified Code(s): S32.10XD - Unspecified fracture of sacrum, subsequent encounter for fracture wi th routine healing (7) Hypothyroidism Hypothyroidism type: acquired Qualified Code(s): E03.9 - Hypothyroidism, unspecified (8) Depression Depression Type: unspecified Qualified Code(s): F32.9 - Major depressive disorder, single episode, unspecified
[2018-11-11] MEDS: ACETAMINOPHEN 500 MG TAB PO PRN (02:30)
[2018-11-11] MEDS: LEVOTHYROXINE SODIUM 100 MCG TABLET PO SCH (05:50)
[2018-11-11 06:45] LABS: BUN Creatinine Ratio 12.4 (10-20); Calcium 8.6 mg/dl (8.5-10.1); Creatinine Clr Calc Pharmacy 43.4 ml/min; Est GFR (African American) 80.8; Est GFR (Non-African American) 69.7; Potassium 3.9 mmol/L (3.5-5.1)
--- NOTE | 2018-11-11 08:06 | Ultrasound Report ---
ULTRASOUND RIGHT UPPER QUADRANT ABDOMEN CLINICAL HISTORY: Cholelithiasis. Biliary ductal dilatation seen by CT. COMPARISON STUDY: Abdominal CT dated 11/08/2018. TECHNIQUE: Real-time, grayscale, and color flow sonography of the right upper quadrant of the abdomen was performed. Images are reviewed in the transverse and longitudinal planes. FINDINGS: Liver: The liver is normal in size and echotexture. There is mild intrahepatic biliary ductal dilatat ion. The main portal vein is patent. Gallbladder: Adenomyomatosis is suggested at the gallbladder fundus. No shadowing gallstones are iden tified. A 7 mm nonmobile intraluminal structure likely represents a polyp. There is no gallbladder wa ll thickening or pericholecystic fluid. A sonographic Lorenzo's sign is reportedly absent. The common bile duct measures up to 0.5 cm in diameter. Pancreas: Visualized portions of the pancreatic head and body are normal in appearance. The splenic v ein is patent. Right kidney: Survey images of the right kidney demonstrate mild cortical atrophy. There is no hydron ephrosis. Ascites: None. IMPRESSION: 1. Mild intrahepatic biliary ductal dilatation is again noted. 2. No shadowing gallstones are identified. A nonmobile 7 mm filling defect likely represents a polyp. 3. Adenomyomatosis is suggested at the gallbladder fundus. Electronically signed by: Tyler Coffman M.D. 11/11/2018 8:04 AM
[2018-11-11] MEDS: AMLODIPINE BESYLATE 5 MG TAB PO SCH (09:10)
[2018-11-11] MEDS: guaiFENesin 600 MG TABCR PO SCH ×2 (09:10→21:37)
[2018-11-11] MEDS: PANTOprazole 40 MG TAB PO SCH ×2 (09:10→21:37)
[2018-11-11] MEDS: CITALOPRAM 40 MG TAB PO SCH (09:11)
[2018-11-11] MEDS: IRBESARTAN 150 MG TAB PO SCH (09:11)
[2018-11-11] MEDS: BUDESONIDE/FORMOTEROL FUMARATE 160/4.5 60 PUFFS/INHALER INH SCH ×2 (09:11→21:36)
[2018-11-11] MEDS: TIOTROPIUM BROMIDE 5 PUFF/90 MCG INH INH SCH (09:11)
--- NOTE | 2018-11-11 15:07 | Hospitalist Progress Note ---
Date of Service November 11, 2018 Assessment & Plan (1) Altered mental status: Recurrent episodes of delirium over the last few months per daughter in the setting of depression and/or cognitive impairment. - Possibly due to UTI; however, I am not convinced that this is an acute issue vs. worsening dementia. - Continue treatment of Pseudomonas UTI x 3 days total - RUQ u/s within normal limits (2) UTI (urinary tract infection): 11/06/18 cx with pansensitive pseudomonas. - Placed on cipro as outpatient. - Changed to cefepime at admission. - Plan 7 days in total of Rx (End date: 11/13). (3) Gallstones: No signs/symptoms of biliary tract disease. RUQ u/s on 11/11 ruled out acute cholecystitis. - No further follow up needed unless she has RUQ pain. (4) Hypertension: Cont amlodipine and ARB. (5) COPD (chronic obstructive pulmonary disease): Continue inhalers. - No flare at this time. (6) Anemia: - Had acute blood loss anemia earlier this year. Hgb was 12 a couple of days ago and appears very stable. (7) Closed sacral fracture: Seen on imaging studies in early September 2018. These are OLD/CHRONIC. She has no pain from them. - No inpatient needs (8) Hypothyroidism: TSH early 2018 quite decompensated but now normalized. - Cont synthroid. (9) Depression: Daughter reports since the winter ?depression. This could be causing cognitive impairment. Currently on Celexa. - On my interview, she is pleasant and does not have a depressed affect. (10) DVT prophylaxis: SCDs - h/o significant GI bleed earlier this year - Defer on chemical means for now Subjective No major issues today. Denies pain. Knows which hospital she is in, but does not know the year. Does know the season. Review of Systems Review of Systems: All systems reviewed & are unremarkable except as noted in HPI & below Physical Exam Constitutional: average body habitus; no acute distress ENMT: external ear and nose normal, oropharynx normal Respiratory: normal respiratory effort, lungs clear to auscultation Cardiovascular: Rate/Rhythm: regular rate and regular rhythm Heart Sounds: normal S1 and normal S2; no murmur Vessels: posterior tibial pulses present and dorsalis pedis pulses present; no JVD Gastrointestinal (Abdomen): normal bowel sounds, soft, nontender, no hepatosplenomegaly Psychiatric: Orientation: alert, oriented to person and oriented to place; + not oriented to time Results & Data Vital Signs (Past 12 Hours) Vital Signs Temp Pulse Resp BP Pulse Ox 11/11/18 07:29 36.8 C 79 16 161/77 H 99 (1) Altered mental status Altered mental status type: delirium Qualified Code(s): R41.0 - Disorientation, unspecified (2) UTI (urinary tract infection) Hematuria presence: without hematuria Urinary tract infection type: acute cystitis Qualified Code(s): N30.00 - Acute cystitis without hematuria (3) Hypertension Hypertension type: unspecified Qualified Code(s): I10 - Essential (primary) hypertension (4) COPD (chronic obstructive pulmonary disease) COPD type: unspecified COPD Qualified Code(s): J44.9 - Chronic obstructive pulmonary disease, unspecified (5) Anemia Anemia type: unspecified type Qualified Code(s): D64.9 - Anemia, unspecified (6) Closed sacral fracture Encounter type: subsequent encounter Fracture healing: with routine healing Zone of sacrum fracture: unspecified portion of sacrum Qualified Code(s): S32.10XD - Unspecified fracture of sacrum, subsequent encounter for fracture with routine healing (7) Hypothyroidism Hypothyroidism type: acquired Qualified Code(s): E03.9 - Hypothyroidism, unspecified (8) Depression Depression Type: unspecified Qualified Code(s): F32.9 - Major depressive disorder, single episode, unspecified
[2018-11-11] MEDS: CEFEPIME 1,000 MG in SYRINGE 0 ML IV SCH (21:36)
[2018-11-11] MEDS: PRAVASTATIN SOD 40 MG TAB PO SCH (21:38)
[2018-11-12] MEDS: LEVOTHYROXINE SODIUM 100 MCG TABLET PO SCH (05:56)
[2018-11-12] MEDS: TIOTROPIUM BROMIDE 5 PUFF/90 MCG INH INH SCH (09:00)
[2018-11-12] MEDS: BUDESONIDE/FORMOTEROL FUMARATE 160/4.5 60 PUFFS/INHALER INH SCH ×2 (09:19→20:18)
[2018-11-12] MEDS: guaiFENesin 600 MG TABCR PO SCH ×2 (09:20→20:19)
[2018-11-12] MEDS: CITALOPRAM 40 MG TAB PO SCH (09:20)
[2018-11-12] MEDS: PANTOprazole 40 MG TAB PO SCH ×2 (09:20→20:19)
[2018-11-12] MEDS: IRBESARTAN 150 MG TAB PO SCH (09:20)
[2018-11-12] MEDS: AMLODIPINE BESYLATE 5 MG TAB PO SCH (09:20)
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
[2018-11-12] MEDS: ACETAMINOPHEN 500 MG TAB PO PRN (16:39)
[2018-11-12] MEDS: CEFEPIME 1,000 MG in SYRINGE 0 ML IV SCH (16:40)
[2018-11-12] MEDS: PRAVASTATIN SOD 40 MG TAB PO SCH (20:19)
[2018-11-13] MEDS: LEVOTHYROXINE SODIUM 100 MCG TABLET PO SCH (05:30)
[2018-11-13] MEDS: TIOTROPIUM BROMIDE 5 PUFF/90 MCG INH INH SCH (07:40)
[2018-11-13] MEDS: BUDESONIDE/FORMOTEROL FUMARATE 160/4.5 60 PUFFS/INHALER INH SCH (07:40)
[2018-11-13] MEDS: IRBESARTAN 150 MG TAB PO SCH (07:41)
[2018-11-13] MEDS: guaiFENesin 600 MG TABCR PO SCH (07:42)
[2018-11-13] MEDS: CITALOPRAM 40 MG TAB PO SCH (07:42)
[2018-11-13] MEDS: AMLODIPINE BESYLATE 5 MG TAB PO SCH (07:42)
[2018-11-13] MEDS: PANTOprazole 40 MG TAB PO SCH (07:43)
[2018-11-13] MEDS: CEFEPIME 1,000 MG in SYRINGE 0 ML IV SCH (11:35)
[2018-11-13] MEDS ORDERED: CEFEPIME 1,000 MG in SYRINGE 0 ML IV STA (11:49)
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
== END 2018-11-13 18:30 | disposition home or self-care (01) | DRG 689 ==
LOC: ED 18:04 → SUATTDRO 20:22 → 4E 20:22

== ENCOUNTER 2018-12-01 16:48 | Inpatient (IN) ==
[2018-12-01] MEDS ORDERED: SODIUM CHLORIDE 0.9% 1000ML 1,000 ML IV ONE (17:07)
--- NOTE | 2018-12-01 17:27 | XRay Report ---
XR chest 1V portable CLINICAL HISTORY: fever COMPARISON STUDY: 11/29/2018 FINDINGS: The cardiac and mediastinal contours are normal. There is no evidence of focal pulmonary co nsolidation. There is no evidence of failure. No pleural effusions are visualized.[There is scattered tiny pulmonary nodules, likely postinflammatory. IMPRESSION: No active disease in the chest. Electronically signed by: Brooks De Paz M.D. 12/01/2018 5:26 PM
[2018-12-01 17:49] LABS: Basophils # (auto) 0.03 K/uL (0-0.2); Basophils % (auto) 0.4 %; Eosinophils # (auto) 0.04 K/uL (0-0.5); Eosinophils % (auto) 0.6 %; Hemoglobin 12.2 g/dL (12.0-16.0); Immature Granulocytes # (auto) 0.03 K/uL (0.00-0.02); Immature Granulocytes % (auto) 0.4 %; Lymphocytes # (auto) 1.29 K/uL (1.2-3.4); Lymphocytes % (auto) 17.9 %; Mean Corpuscular Hgb Conc 33.9 g/dL (32-36); Mean Corpuscular Volume 92.1 fL (80-100); Mean Platelet Volume 8.8 fL (7.4-10.4); Monocytes # (auto) 0.41 K/uL (0.11-0.59); Monocytes % (auto) 5.7 %; Neutrophils # (auto) 5.41 K/uL (1.4-6.5); Platelet Count 336 K/uL (130-400); RDW Coefficient of Variation 15.8 % (11.5-14.5); RDW Standard Deviation 52.9 fL (36.4-46.3); Red Blood Count 3.91 M/uL (4.2-5.4); White Blood Count 7.21 K/uL (4.8-10.8)
[2018-12-01 18:06] LABS: Albumin Level 3.6 gm/dl (3.4-5.0); BUN Creatinine Ratio 22.6 (10-20); Calcium 9.3 mg/dl (8.5-10.1); Creatinine Clr Calc Pharmacy 37.6 ml/min; Est GFR (African American) 77.2; Est GFR (Non-African American) 66.6; Potassium 4.3 mmol/L (3.5-5.1)
[2018-12-01 18:17] LABS: Bilirubin,Total 0.9 mg/dl (0.2-1); Globulin 3.6 gm/dl (2.5-4.0); Total Protein 7.2 gm/dl (6.4-8.2); Troponin I 0.021 ng/ml (0-0.045)
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
[2018-12-01 19:08] LABS: Appearance Urine Clear (Clear); Bacteria Urine Automated Negative (Negative); Bilirubin Urine Negative (Negative); Blood Urine Trace (Negative); Color Urine Yellow; Epithelial Cell Urine Auto 20-30 /lpf (0-5); Glucose Urine UA Negative (Negative); Ketones Urine 1+ (Negative); Leukocyte Esterase Urine Negative (Negative); Nitrite Urine Negative (Negative); Protein Urine Negative (Negative); Specific Gravity Urine 1.024 (1.000-1.030); Urobilinogen Urine Negative (Negative); pH Urine 5.5 (4.5-7.5)
[2018-12-01] MEDS ORDERED: SODIUM CHLORIDE 0.9% 1000ML 1,000 ML IV SCH (20:15)
--- NOTE | 2018-12-01 21:16 | History & Physical Report ---
Date of Service December 01, 2018 Assessment & Plan (1) Dementia: Dementia/depression/altered mental status- Multiple contributing etiologies: Recent urinary tract infection, progressive dementia, left hip pain, more recently hallucinations due to fentanyl patch, other medications, other metabolic issues. Discontinuing fentanyl patch, Celexa and oxycodone. Follow urine cultures and blood cultures. Follow for resolution of hallucinations off with fentanyl patch. CT of head was negative for acute bleed. CT cervical spine is negative Order an MRI of the brain without contrast to assess for possible strokes. Consult neurology. Present on Admission?: Yes (2) Altered mental status: See above Present on Admission?: Yes (3) Depression: See above Present on Admission?: Yes (4) COPD (chronic obstructive pulmonary disease): Continue Symbicort, Spiriva, and Mucinex. Present on Admission?: Yes (5) Hyperlipidemia LDL goal <70: Continue pravastatin 40 mg in the evening. Check a fasting lipid panel Present on Admission?: Yes (6) Hypothyroidism: Continue levothyroxine sodium 100 mcg every morning Present on Admission?: Yes (7) Duodenal bulb ulcer: Pantoprazole 40 mg p.o. twice daily Present on Admission?: Yes (8) Left hip pain: History of fracture in the past, with recent reinjury. Patient is sensitive to light pressure. Try to avoid any strong pain medications due to milk multiple medication sensitivities. Placed on Tylenol 600 mg p.o. every 4 hours PRN mild pain or temperature. [place] 5/325 1 p.o. every 4 hours as needed moderate pain. Morphine sulfate, 2 mg IV every 6 hours as needed severe pain, starting on 12 hours, once the fentanyl patch has worn off completely Patient had been placed on a fentanyl patch 2 days ago, which has caused significant issues with hallucinations and will be discontinued. Present on Admission?: Yes (9) Pseudomonas urinary tract infection: Repeat urinalysis and urine culture. Treat if positive. Present on Admission?: Yes History of Present Illness Chief Complaint: The patient presents to the emergency department from a local alf due to a temperature of 102. Primary Care Provider: [facility] The patient is an 83-year-old female most recently admitted to [facility] from 11/10-11/13/2018 for delirium, at that time thought to be due to a pansensitive Pseudomonas aeruginosa UTI, or side effect of Cipro. The Pseudomonas was initially treated with Cipro as an outpatient, which was stopped for the last admission, and received cefepime IV for 3 days total, with last dosing on 11/13. The patient was then seen in the ED at [facility] on 2018 for left hip pain associated with a fall that occurred just prior to arrival. The left hip had been previously fractured in 2000, and she is due for a hip replacement in a few weeks at [facility] she does complain of left hip pain with certain movements and when pressure is against when lying on it. Family reports that a few months ago, the patient was functioning independently, and since admission to [facility] in September and then recent admissions to [facility], she has become more confused, and since Sunday night, 2 nights ago, she has had visual hallucinations. Upon questioning, this would appear to be immediately traceable back to the institution of a fentanyl patch on Sunday morning. Allergies Allergy/AdvReac Type Severity Reaction Status Date / Time bupropion [From Wellbutrin] Allergy Mild Unknown Unverified 12/01/18 17:40 hydrochlorothiazide Allergy Mild Unknown Unverified 12/01/18 17:40 [From Avalide] irbesartan [From Avalide] Allergy Mild Unknown Unverified 12/01/18 17:40 roflumilast [From Daliresp] Allergy Mild Unknown Unverified 12/01/18 17:40 denosumab [From Prolia] Allergy Unknown Verified 12/01/18 17:40 tramadol Allergy Unknown Verified 12/01/18 17:40 ciprofloxacin [From Cipro] AdvReac Unknown Unverified 12/01/18 17:40 NSAIDS (Non-Steroidal AdvReac Unknown Unverified 12/01/18 17:40 Anti-Inflamma Home Medications Home Medications Medication Instructions Recorded Confirmed Type Spiriva with HandiHaler 1 cap INHALATION DAILY 11/04/18 12/01/18 History Symbicort 2 puff INHALATION BID 11/04/18 12/01/18 History citalopram [Celexa] 40 mg PO QAM 11/04/18 12/01/18 History omega 3-eyi-xrc-fish oil [Fish Oil] 1 cap PO QAM 11/04/18 12/01/18 History oxycodone-acetaminophen [Percocet] 1 tab PO Q6H PRN 11/04/18 12/01/18 History pantoprazole 40 mg PO BID 11/04/18 12/01/18 History pravastatin 40 mg PO QPM 11/04/18 12/01/18 History acetaminophen [Tylenol Extra 500 - 1,000 mg PO Q4 PRN 11/06/18 12/01/18 History Strength] ergocalciferol (vitamin D2) 50,000 unit PO 2XWK 11/06/18 12/01/18 History [Vitamin D2] guaifenesin [Mucinex] 600 mg PO BID 11/06/18 12/01/18 History levothyroxine 100 mcg PO QAM 11/08/18 12/01/18 History fentanyl 1 patch TRANSDERMAL Q72H 12/01/18 12/01/18 History Past Med/Surg History Medical History Anxiety COPD (chronic obstructive pulmonary disease) Hypertension Hypothyroidism Osteopenia Surgical History S/P AAA (abdominal aortic aneurysm) repair Family History Father Hypertension Social History Preferred Language: Latvian Communication Ability: Impaired Communication Ability Comment: Pt confused [employer] Required: No Beliefs That Will Affect Care: None marital status: / Current Living Situation: Family current occupational status: retired Feels Safe at Home: Yes Safety Concerns: Feels Safe At This Time Smoking Status: Former smoker Hx Alcohol Use: No Hx Substance Use: No Review of Systems Review of Systems: The patient, with the help of her family, denies chest pain, palpitations, shortness of breath, dyspnea on exertion, cough, lower extremity swelling, sore throat, fevers, chills, sweats, nausea, vomiting, diarrhea , constipation, abdominal pain, pelvic pain, blood in urine or stool, dysuria, urinary frequency or urgency, lightheadedness, dizziness, headache, loss of consciousness, rash, abnormal bruising or bleeding, focal or generalized weakness, numbness or tingling in arms, generalized arthralgias or myalgias, back or neck pain, or night sweats. The review of systems is otherwise negative other than for that already noted above, and at least 10 systems have been reviewed. Physical Exam Physical Exam: The patient is awake, alert and oriented 2, normocephalic and atraumatic, lying in bed and in no acute distress. HEENT--PERRL, EOMI, mucous membranes and oropharynx dry. Neck--supple. No JVD. No bruits. Thyroid normal, trachea midline, no adenopathy. Heart--normal S1 and S2. No murmurs, rubs or gallops. Lungs--clear bilaterally, no respiratory distress, no accessory muscle use. Abdomen--normal bowel sounds and soft. Nontender. Nondistended. Extremities--no cyanosis or clubbing. No edema. There are good distal pulses b/l. Dermatologic--normal skin turgor, normal color, no abnormal lymph nodes, no rash. Neurologic--cranial nerves II through XII grossly intact. Rheumatologic--decreased range of motion, and pain noted over left hip. Psychiatric--normal affect. Results & Data Vital Signs (Past 12 Hours) Vital Signs Temp Pulse Resp BP Pulse Ox 12/01/18 20:30 93 H 18 184/87 H 97 12/01/18 20:01 86 21 97 12/01/18 20:00 87 14 174/99 H 12/01/18 19:39 86 22 96 12/01/18 19:38 86 17 191/80 H 97 12/01/18 19:31 85 18 98 12/01/18 19:30 84 18 191/80 H 96 12/01/18 19:28 96 12/01/18 19:27 99 F 12/01/18 18:30 89 20 166/79 H 96 12/01/18 18:00 85 15 190/90 H 98 12/01/18 17:51 85 17 163/82 H 96 12/01/18 17:30 86 22 95 12/01/18 17:05 86 18 96 12/01/18 17:00 100.2 F H 98 H 19 176/88 H 95 12/01/18 16:52 90 14 176/88 H 95 Laboratory Results Laboratory Results WBC 7.21 K/uL (4.8-10.8) 12/01/18 17:32 RBC 3.91 M/uL (4.2-5.4) L 12/01/18 17:32 Hgb 12.2 g/dL (12.0-16.0) 12/01/18 17:32 Hct 36.0 % (37-47) L 12/01/18 17:32 MCV 92.1 fL (80-100) 12/01/18 17:32 MCH 31.2 pg (25-34) 12/01/18 17:32 MCHC 33.9 g/dL (32-36) 12/01/18 17:32 RDW Std Deviation 52.9 fL (36.4-46.3) H 12/01/18 17:32 RDW Coeff of Radhika 15.8 % (11.5-14.5) H 12/01/18 17:32 Plt Count 336 K/uL (130-400) 12/01/18 17:32 MPV 8.8 fL (7.4-10.4) 12/01/18 17:32 Immature Gran % (Auto) 0.4 % 12/01/18 17:32 Neut % (Auto) 75.0 % 12/01/18 17:32 Lymph % (Auto) 17.9 % 12/01/18 17:32 Lawrence % (Auto) 5.7 % 12/01/18 17:32 Eos % (Auto) 0.6 % 12/01/18 17:32 Baso % (Auto) 0.4 % 12/01/18 17:32 Immature Gran # (Auto) 0.03 K/uL (0.00-0.02) H 12/01/18 17:32 Neut # (Auto) 5.41 K/uL (1.4-6.5) 12/01/18 17:32 Lymph # (Auto) 1.29 K/uL (1.2-3.4) 12/01/18 17:32 Lawrence # (Auto) 0.41 K/uL (0.11-0.59) 12/01/18 17:32 Eos # (Auto) 0.04 K/uL (0-0.5) 12/01/18 17:32 Baso # (Auto) 0.03 K/uL (0-0.2) 12/01/18 17:32 Sodium 135 mmol/L (136-145) L 12/01/18 17:32 Potassium 4.3 mmol/L (3.5-5.1) 12/01/18 17:32 Chloride 101 mmol/L (98-107) 12/01/18 17:32 Carbon Dioxide 26 mmol/L (21-32) 12/01/18 17:32 Anion Gap 8.0 (3-11) 12/01/18 17:32 BUN 19 mg/dl (7-18) H 12/01/18 17:32 Creatinine 0.82 mg/dl (0.6-1.2) 12/01/18 17:32 Est Cr Clr Drug Dosing 37.6 ml/min 12/01/18 17:32 Est GFR ( Amer) 77.2 12/01/18 17:32 Est GFR (Non-Af Amer) 66.6 12/01/18 17:32 BUN/Creatinine Ratio 22.6 (10-20) H 12/01/18 17:32 Glucose 78 mg/dl (70-99) 12/01/18 17:32 Calcium 9.3 mg/dl (8.5-10.1) 12/01/18 17:32 Magnesium 2.0 mg/dl (1.8-2.4) 12/01/18 17:32 Total Bilirubin 0.9 mg/dl (0.2-1) 12/01/18 17:32 AST 30 U/L (15-37) 12/01/18 17:32 ALT 25 U/L (12-78) 12/01/18 17:32 Alkaline Phosphatase 101 U/L (45-117) 12/01/18 17:32 Troponin I 0.021 ng/ml (0-0.045) 12/01/18 17:32 NT-Pro-B Natriuret Pep 1557 pg/ml (0-1800) 12/01/18 17:32 Total Protein 7.2 gm/dl (6.4-8.2) 12/01/18 17:32 Albumin 3.6 gm/dl (3.4-5.0) 12/01/18 17:32 Globulin 3.6 gm/dl (2.5-4.0) 12/01/18 17:32 Albumin/Globulin Ratio 1.0 (0.9-2) 12/01/18 17:32 Lipase 58 U/L (73-393) L 12/01/18 17:32 Procalcitonin 0.50 ng/ml (0-0.5) 12/01/18 17:32 TSH 0.581 uIu/ml (0.300-4.500) 12/01/18 17:32 Urine Color Yellow 12/01/18 18:52 Urine Appearance Clear (Clear) 12/01/18 18:52 Urine pH 5.5 (4.5-7.5) 12/01/18 18:52 Ur Specific Hurricane 1.024 (1.000-1.030) 12/01/18 18:52 Urine Protein Negative (Negative) 12/01/18 18:52 Urine Glucose (UA) Negative (Negative) 12/01/18 18:52 Urine Ketones 1+ (Negative) H 12/01/18 18:52 Urine Blood Trace (Negative) H 12/01/18 18:52 Urine Nitrite Negative (Negative) 12/01/18 18:52 Urine Bilirubin Negative (Negative) 12/01/18 18:52 Urine Urobilinogen Negative (Negative) 12/01/18 18:52 Ur Leukocyte Esterase Negative (Negative) 12/01/18 18:52 Urine WBC (Auto) 1-5 /hpf (0-5) 12/01/18 18:52 Urine RBC (Auto) 5-10 /hpf (0-4) H 12/01/18 18:52 U Hyaline Cast (Auto) 1-5 /lpf (0-5) 12/01/18 18:52 U Epithel Cells (Auto) 20-30 /lpf (0-5) H 12/01/18 18:52 Urine Bacteria (Auto) Negative (Negative) 12/01/18 18:52 Diagnostic Findings [facility], [place] [phone] CT Scan Report Patient: INDIA WANGINEAdmit Date: 12/01/18 MR#: [id number]: [address] Acct ID:[id number]: SRINIVASAN [facility]Z [facility] Zip: [place] [address] Age: 83Location: ED Sex: F Room/Bed: Att Phy: Diagnosis: CONFUSION Becky Phy: Srinivasan Perez,PCHService Date: 12/01/18 Fam Phy: Srinivasan Perez,PCHInterpreting Phy: Brooks De Paz MD Admit Phy: Ordering Phy: Bouchra Lynch DO cc: ~ CT head/brain wo con CLINICAL HISTORY: Head trauma. Acute change in mental status. COMPARISON STUDY: 11/09/2018 TECHNIQUE: Axial CT of the brain is performed from the vertex to the skull base. IV contrast was not administered for this examination. A dose lowering technique was utilized adhering to the principles of ALARA. CT DOSE: FINDINGS: There is a stable 5 mm right anterior middle cranial fossa extra-axial calcification. There is no CT evidence of acute cortical infarction. There is no evidence of midline shift. There is no acute hemorrhage. No calvarial fractures are visualized. There are patchy white matter hypodensities likely on a small vessel basis. There is no evidence of pathologic ventricular dilatation. There is no evidence of acute sinusitis IMPRESSION: No acute intracranial findings Electronically signed by: Brooks De Paz M.D. 12/01/2018 6:24 PM Dictated: 12/01/18 182 Transcribed: 12/01/18 182 [place], [place] [phone] XRay Report Patient: Danielle WANG Date: 12/01/18 MR#: [id number]: [address] Acct ID:[id number]: SRINIVASAN PEREZ [facility] Zip: [place] [address] Age: 83Location: ED Sex: F Room/Bed: Att Phy: Diagnosis: CONFUSION Becky Phy: Srinivasan PerezROBERTHService Date: 12/01/18 [facility] Phy: Srinivasan Perez,PCHInterpreting Phy: Brooks De Paz MD Admit Phy: Ordering Phy: Bouchra Lynch DO cc: ~ XR chest 1V portable CLINICAL HISTORY: fever COMPARISON STUDY: 11/29/2018 FINDINGS: The cardiac and mediastinal contours are normal. There is no evidence of focal pulmonary consolidation. There is no evidence of failure. No pleural effusions are visualized.[There is scattered tiny pulmonary nodules, likely postinflammatory. IMPRESSION: No active disease in the chest. Electronically signed by: Brooks De Paz M.D. 12/01/2018 5:26 PM Dictated: 12/01/18 1725 Transcribed: 12/01/18 172 [place], [place] [phone] CT Scan Report Patient: Danielle WANG Date: 12/01/18 MR#: [id number]: [address] Acct ID:[id number]: SRINIVASAN PEREZ [facility]AL C[facility] Zip: [place] [address] Age: 83Location: ED Sex: F Room/Bed: Att Phy: Diagnosis: CONFUSION Becky Phy: Srinivasan Perez,PCHService Date: 12/01/18 Fam Phy: Srinivasan Perez,PCHInterpreting Phy: Brooks De Paz MD Admit Phy: Ordering Phy: Bouchra Lynch DO cc: ~ CT OF THE CERVICAL SPINE CLINICAL HISTORY: Neck pain status post trauma COMPARISON STUDY: No previous studies for comparison. CT DOSE: 1365.48 mGy.cm TECHNIQUE: CT scan of the cervical spine was performed from the skull base to the thoracic inlet. Images are reviewed in the axial, sagittal, and coronal planes. IV contrast was not administered for this examination. A dose lowering technique was utilized adhering to the principles of ALARA. FINDINGS: There is no apical pneumothorax. There are nonspecific apical pleural and parenchymal opacities, statistically representing areas of scarring. There is trace sphenoid sinus fluid. The prevertebral soft tissues are normal. No acute fractures or traumatic perez bluxations are visualized. 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 There are multilevel degenerative changes IMPRESSION: No evidence of acute fracture or traumatic subluxation. Electronically signed by: Brooks De Paz M.D. 12/01/2018 6:28 PM Dictated: 12/01/18 182 Transcribed: 12/01/181823 Code Status & VTE Plan Code Status Full code VTE Prophylaxis Plan VTE Prophylaxis will be ordered: Yes PG Care Time/CCT Total # of Minutes Spent Total Time Spent with Patient: Total time spent is greater than 50% in coordination of care (as documented) at patient's floor/unit and/or counseling patient: (1) Altered mental status Altered mental status type: unspecified Qualified Code(s): R41.82 - Altered mental status, unspecified (2) Depression Depression Type: unspecified Qualified Code(s): F32.9 - Major depressive disorder, single episode, unspecified (3) COPD (chronic obstructive pulmonary disease) COPD type: unspecified COPD Qualified Code(s): J44.9 - Chronic obstructive pulmonary disease, unspecified (4) Hypothyroidism Hypothyroidism type: acquired Qualified Code(s): E03.9 - Hypothyroidism, unspecified
[2018-12-01] MEDS ORDERED: ALUMINUM/MAGNESIUM SUSP 30 ML UDC PO PRN (21:59)
[2018-12-01] MEDS: BUDESONIDE/FORMOTEROL FUMARATE 160/4.5 60 PUFFS/INHALER INH SCH (22:48)
--- NOTE | 2018-12-01 23:20 | Emergency Department Note ---
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 Per EMS, the patient was discharged with a UTI and prescr ibed Bactrim. They state that the patient's temperature was 102 at the [facility] and after EMS came the fever lowered. They state that the patient was confused on arrival. The patient states that she fell 2 days ago and suffered a head injury. She reports that she had swelling where she hit, but it has gone down since then. She reports that the fall happened when she was going to the bathroom. The patient notes that gets fevers occasionally. She reports that she is experiencing abdominal pain and back pain. She denies any troubles urinating. She states that she took Tylenol for the fever prior to arrival. Patient is difficult historian and well oriented to name and place, seems confused to date/time and recent events. Home Medications Home Medications Medication Instructions Recorded Confirmed Type Spiriva with HandiHaler 1 cap INHALATION DAILY 11/04/18 12/01/18 History Symbicort 2 puff INHALATION BID 11/04/18 12/01/18 History citalopram [Celexa] 40 mg PO QAM 11/04/18 12/01/18 History omega 3-lmw-ije-fish oil [Fish Oil] 1 cap PO QAM 11/04/18 12/01/18 History oxycodone-acetaminophen [Percocet] 1 tab PO Q6H PRN 11/04/18 12/01/18 History pantoprazole 40 mg PO BID 11/04/18 12/01/18 History pravastatin 40 mg PO QPM 11/04/18 12/01/18 History acetaminophen [Tylenol Extra 500 - 1,000 mg PO Q4 PRN 11/06/18 12/01/18 History Strength] ergocalciferol (vitamin D2) 50,000 unit PO 2XWK 11/06/18 12/01/18 History [Vitamin D2] guaifenesin [Mucinex] 600 mg PO BID 11/06/18 12/01/18 History levothyroxine 100 mcg PO QAM 11/08/18 12/01/18 History fentanyl 1 patch TRANSDERMAL Q72H 12/01/18 12/01/18 History Allergies Allergy/AdvReac Type Severity Reaction Status Date / Time bupropion [From Wellbutrin] Allergy Mild Unknown Unverified 12/01/18 17:40 hydrochlorothiazide Allergy Mild Unknown Unverified 12/01/18 17:40 [From Avalide] irbesartan [From Avalide] Allergy Mild Unknown Unverified 12/01/18 17:40 roflumilast [From Daliresp] Allergy Mild Unknown Unverified 12/01/18 17:40 denosumab [From Prolia] Allergy Unknown Verified 12/01/18 17:40 tramadol Allergy Unknown Verified 12/01/18 17:40 ciprofloxacin [From Cipro] AdvReac Unknown Unverified 12/01/18 17:40 NSAIDS (Non-Steroidal AdvReac Unknown Unverified 12/01/18 17:40 Anti-Inflamma Past Med/Surg History Medical History Anxiety COPD (chronic obstructive pulmonary disease) Hypertension Hypothyroidism Osteopenia Surgical History S/P AAA (abdominal aortic aneurysm) repair Family History Father Hypertension Social History Preferred Language: Danish Communication Ability: Impaired Communication Ability Comment: Pt confused Management Lead Required: No Beliefs That Will Affect Care: None marital status: / Current Living Situation: Family current occupational status: retired Feels Safe at Home: Yes Safety Concerns: Feels Safe At This Time Smoking Status: Former smoker Hx Alcohol Use: No Hx Substance Use: No Review of Systems See HPI for pertinent positives & negatives. and A total of 10 systems reviewed and were otherwise negative Physical Exam Vital Signs Vital Signs - 24 hr 12/01/18 16:52 12/01/18 17:00 12/01/18 17:05 Temperature 37.9 C H Temperature Source Oral Sepsis Recent Fever Within 48 Hours Yes Sepsis New/Unexplained Change in Mental Status No Sepsis Action Taken by Nursing No Action Required Pulse Rate 90 98 H 86 Pulse Rate from SpO2 Sensor 86 86 Pulse Rhythm Regular Pulse Strength Normal Respiratory Rate 14 19 18 Respiratory Effort / Characteristics Non-Labored Respiratory Depth Normal Respiratory Pattern Regular Blood Pressure 176/88 H 176/88 H Blood Pressure Mean 117 117 Blood Pressure Position Sitting Pulse Oximetry 95 95 96 Oxygen Delivery Method Room Air 12/01/18 17:30 12/01/18 17:51 12/01/18 18:00 Temperature Temperature Source Sepsis Recent Fever Within 48 Hours Sepsis New/Unexplained Change in Mental Status Sepsis Action Taken by Nursing Pulse Rate 86 85 85 Pulse Rate from SpO2 Sensor 86 85 84 Pulse Rhythm Pulse Strength Respiratory Rate 22 17 15 Respiratory Effort / Characteristics Respiratory Depth Respiratory Pattern Blood Pressure 163/82 H 190/90 H Blood Pressure Mean 109 123 Blood Pressure Position Pulse Oximetry 95 96 98 Oxygen Delivery Method 12/01/18 18:30 12/01/18 19:27 12/01/18 19:28 Temperature 37.2 C Temperature Source Oral Sepsis Recent Fever Within 48 Hours Sepsis New/Unexplained Change in Mental Status Sepsis Action Taken by Nursing Pulse Rate 89 Pulse Rate from SpO2 Sensor 89 87 Pulse Rhythm Pulse Strength Respiratory Rate 20 Respiratory Effort / Characteristics Respiratory Depth Respiratory Pattern Blood Pressure 166/79 H Blood Pressure Mean 108 Blood Pressure Position Pulse Oximetry 96 96 Oxygen Delivery Method 12/01/18 19:30 12/01/18 19:31 12/01/18 19:38 Temperature Temperature Source Sepsis Recent Fever Within 48 Hours Sepsis New/Unexplained Change in Mental Status Sepsis Action Taken by Nursing Pulse Rate 84 85 86 Pulse Rate from SpO2 Sensor 86 85 86 Pulse Rhythm Pulse Strength Respiratory Rate 18 18 17 Respiratory Effort / Characteristics Respiratory Depth Respiratory Pattern Blood Pressure 191/80 H 191/80 H Blood Pressure Mean 117 117 Blood Pressure Position Pulse Oximetry 96 98 97 Oxygen Delivery Method 12/01/18 19:39 12/01/18 20:00 12/01/18 20:01 Temperature Temperature Source Sepsis Recent Fever Within 48 Hours Sepsis New/Unexplained Change in Mental Status Sepsis Action Taken by Nursing Pulse Rate 86 87 86 Pulse Rate from SpO2 Sensor 83 86 Pulse Rhythm Pulse Strength Respiratory Rate 22 14 21 Respiratory Effort / Characteristics Respiratory Depth Respiratory Pattern Blood Pressure 174/99 H Blood Pressure Mean 124 Blood Pressure Position Pulse Oximetry 96 97 Oxygen Delivery Method 12/01/18 20:30 12/01/18 21:00 12/01/18 21:01 Temperature Temperature Source Sepsis Recent Fever Within 48 Hours Sepsis New/Unexplained Change in Mental Status Sepsis Action Taken by Nursing Pulse Rate 93 H 92 H 89 Pulse Rate from SpO2 Sensor 93 H 89 92 H Pulse Rhythm Pulse Strength Respiratory Rate 18 22 17 Respiratory Effort / Characteristics Respiratory Depth Respiratory Pattern Blood Pressure 184/87 H 123/92 Blood Pressure Mean 119 102 Blood Pressure Position Pulse Oximetry 97 83 L 95 Oxygen Delivery Method GENERAL: alert, well appearing, well nourished, no distress, non-toxic EYE EXAM: normal conjunctiva, PERRL and EOM's grossly intact OROPHARYNX: no exudate, no erythema, lips, buccal mucosa, and tongue normal and mucous membranes are dry, edentulous NECK: supple, no nuchal rigidity, no adenopathy, non-tender LUNGS: Clear to auscultation. Normal chest wall mechanics, no w/r/r HEART: no murmurs, S1 normal and S2 normal ABDOMEN: abdomen soft, non-tender, normo-active bowel sounds, no masses, no rebound or guarding. BACK: Back is symmetrical on inspection and there is no deformity, no midline tenderness, no CVA tenderness. SKIN: no rashes and no bruising, no petechiae UPPER EXTREMITIES: upper extremities are grossly normal. FROM, nml pulses b/l. LOWER EXTREMITIES: No pitting edema. FROM, nml pulses b/l. No clonus. NEURO EXAM: Pleasantly confused, can answer some questions,unsure of time and chronicity of events, cranial nerves II-XII grossly intact, normal speech, no gross weakness of arms, no gross weakness of legs. Gross sensation intact. Course 1652: The patient was evaluated in room B12B, and a complete history and physical examination were performed. 1751: I reevaluated the patient and discussed with the patient's family. The family states that the patient appears more confused since the last time they saw her 4 days ago. They state that the patient has had troubles in the past with her UTI. They state that she was previously hospitalized for confusion related to UTI. They also states she has been delirious secondary to medications previously. They state patient was placed on Bactrim last week for presumed UTI due to mild confusion. 4: I reevaluated the patient and updated the patient's family on her test results. 1621: I reviewed the patient's case with Dr. Hunt [facility]. He will evaluate the patient for further management. Consultations Consultation #1: Dr. Hunt [facility] Time: 16:22 Administered Medications Budesonide/Formoterol Fumarate (Symbicort 160mcg/4.5mcg) 2 puffs INH BID MARGARITA Stop: 12/31/18 21:58 Last Admin: 12/01/18 22:48 Dose: 2 puffs Documented by: [id number] Discontinued Medications Sodium Chloride (Nss 1000ml) 1,000 mls @ 999 mls/hr IV .Q1H1M ONE Stop: 12/01/18 18:07 Last Infusion: 12/01/18 18:41 Dose: 0 mls/hr Documented by: [id number] Admin: 12/01/18 17:45 Dose: 999 mls/hr Documented by: [id number] Sodium Chloride (Nss 1000ml) 1,000 mls @ 125 mls/hr IV .Q8H MARGARITA Stop: 12/31/18 20:14 Last Infusion: 12/01/18 22:18 Dose: 0 mls/hr Documented by: [id number] Admin: 12/01/18 20:06 Dose: 125 mls/hr Documented by: [id number] Medical Decision Making Differential Diagnosis Differential diagnosis: Etiologies such as viral syndrome, otitis, pharyngitis, pneumonia, influenza, meningitis, urinary tract infection, sepsis, bacteremia, metabolic, infection, hypoglycemia, electrolyte abnormalities, cardiac sources, intracerebral event, toxicologic, neurologic, as well as others were entertained. Medical Records Attestation: I reviewed the patient's medical records. Home Medications Current Medication List: was personally reviewed by me Laboratory Data Attestation: I reviewed the patient's lab results. Result diagrams: 12/01/18 17:32 12/01/18 17:32 Lab Results 12/01/18 12/01/18 12/01/18 Range/Units 17:32 17:32 17:32 WBC 7.21 (4.8-10.8) K/uL RBC 3.91 L (4.2-5.4) M/uL Hgb 12.2 (12.0-16.0) g/dL Hct 36.0 L (37-47) % MCV 92.1 (80-100) fL MCH 31.2 (25-34) pg MCHC 33.9 (32-36) g/dL RDW Std Deviation 52.9 H (36.4-46.3) fL RDW Coeff of Radhika 15.8 H (11.5-14.5) % Plt Count 336 (130-400) K/uL MPV 8.8 (7.4-10.4) fL Immature Gran % (Auto) 0.4 % Neut % (Auto) 75.0 % Lymph % (Auto) 17.9 % [place] % (Auto) 5.7 % Eos % (Auto) 0.6 % Baso % (Auto) 0.4 % Immature Gran # (Auto) 0.03 H (0.00-0.02) K/uL Neut # (Auto) 5.41 (1.4-6.5) K/uL Lymph # (Auto) 1.29 (1.2-3.4) K/uL [place] # (Auto) 0.41 (0.11-0.59) K/uL Eos # (Auto) 0.04 (0-0.5) K/uL Baso # (Auto) 0.03 (0-0.2) K/uL Sodium 135 L (136-145) mmol/L Potassium 4.3 (3.5-5.1) mmol/L Chloride 101 (98-107) mmol/L Carbon Dioxide 26 (21-32) mmol/L Anion Gap 8.0 (3-11) BUN 19 H (7-18) mg/dl Creatinine 0.82 (0.6-1.2) mg/dl Est Cr Clr Drug Dosing 37.6 ml/min Est GFR ( Amer) 77.2 Est GFR (Non-Af Amer) 66.6 BUN/Creatinine Ratio 22.6 H (10-20) Glucose 78 (70-99) mg/dl Calcium 9.3 (8.5-10.1) mg/dl Magnesium 2.0 (1.8-2.4) mg/dl Total Bilirubin 0.9 (0.2-1) mg/dl AST 30 (15-37) U/L ALT 25 (12-78) U/L Alkaline Phosphatase 101 (45-117) U/L Troponin I 0.021 (0-0.045) ng/ml NT-Pro-B Natriuret Pep 1557 (0-1800) pg/ml Total Protein 7.2 (6.4-8.2) gm/dl Albumin 3.6 (3.4-5.0) gm/dl Globulin 3.6 (2.5-4.0) gm/dl Albumin/Globulin Ratio 1.0 (0.9-2) Lipase 58 L (73-393) U/L Procalcitonin 0.50 (0-0.5) ng/ml TSH 0.581 (0.300-4.500) uIu/ml Urine Color Urine Appearance (Clear) Urine pH (4.5-7.5) Ur Specific [place] (1.000-1.030) Urine Protein (Negative) Urine Glucose (UA) (Negative) Urine Ketones (Negative) Urine Blood (Negative) Urine Nitrite (Negative) Urine Bilirubin (Negative) Urine Urobilinogen (Negative) Ur Leukocyte Esterase (Negative) Urine WBC (Auto) (0-5) /hpf Urine RBC (Auto) (0-4) /hpf U Hyaline Cast (Auto) (0-5) /lpf U Epithel Cells (Auto) (0-5) /lpf Urine Bacteria (Auto) (Negative) 12/01/18 Range/Units 18:52 WBC (4.8-10.8) K/uL RBC (4.2-5.4) M/uL Hgb (12.0-16.0) g/dL Hct (37-47) % MCV (80-100) fL MCH (25-34) pg MCHC (32-36) g/dL RDW Std Deviation (36.4-46.3) fL RDW Coeff of Radihka (11.5-14.5) % Plt Count (130-400) K/uL MPV (7.4-10.4) fL Immature Gran % (Auto) % Neut % (Auto) % Lymph % (Auto) % [place] % (Auto) % Eos % (Auto) % Baso % (Auto) % Immature Gran # (Auto) (0.00-0.02) K/uL Neut # (Auto) (1.4-6.5) K/uL Lymph # (Auto) (1.2-3.4) K/uL [place] # (Auto) (0.11-0.59) K/uL Eos # (Auto) (0-0.5) K/uL Baso # (Auto) (0-0.2) K/uL Sodium (136-145) mmol/L Potassium (3.5-5.1) mmol/L Chloride (98-107) mmol/L Carbon Dioxide (21-32) mmol/L Anion Gap (3-11) BUN (7-18) mg/dl Creatinine (0.6-1.2) mg/dl Est Cr Clr Drug Dosing ml/min Est GFR ( Amer) Est GFR (Non-Af Amer) BUN/Creatinine Ratio (10-20) Glucose (70-99) mg/dl Calcium (8.5-10.1) mg/dl Magnesium (1.8-2.4) mg/dl Total Bilirubin (0.2-1) mg/dl AST (15-37) U/L ALT (12-78) U/L Alkaline Phosphatase (45-117) U/L Troponin I (0-0.045) ng/ml NT-Pro-B Natriuret Pep (0-1800) pg/ml Total Protein (6.4-8.2) gm/dl Albumin (3.4-5.0) gm/dl Globulin (2.5-4.0) gm/dl Albumin/Globulin Ratio (0.9-2) Lipase (73-393) U/L Procalcitonin (0-0.5) ng/ml TSH (0.300-4.500) uIu/ml Urine Color Yellow Urine Appearance Clear (Clear) Urine pH 5.5 (4.5-7.5) Ur Specific [place] 1.024 (1.000-1.030) Urine Protein Negative (Negative) Urine Glucose (UA) Negative (Negative) Urine Ketones 1+ H (Negative) Urine Blood Trace H (Negative) Urine Nitrite Negative (Negative) Urine Bilirubin Negative (Negative) Urine Urobilinogen Negative (Negative) Ur Leukocyte Esterase Negative (Negative) Urine WBC (Auto) 1-5 (0-5) /hpf Urine RBC (Auto) 5-10 H (0-4) /hpf U Hyaline Cast (Auto) 1-5 (0-5) /lpf U Epithel Cells (Auto) 20-30 H (0-5) /lpf Urine Bacteria (Auto) Negative (Negative) Imaging Data Radiologist's Impression: Radiology results as stated below per my review and the radiologist's interpretation: CT OF THE CERVICAL SPINE CLINICAL HISTORY: Neck pain status post trauma COMPARISON STUDY: No previous studies for comparison. CT DOSE: 1365.48 mGy.cm TECHNIQUE: CT scan of the cervical spine was performed from the skull base to the thoracic inlet. Images are reviewed in the axial, sagittal, and coronal planes. IV contrast was not administered for this examination. A dose lowering technique was utilized adhering to the principles of ALARA. FINDINGS: There is no apical pneumothorax. There are nonspecific apical pleural and parenchymal opacities, statistically representing areas of scarring. There is trace sphenoid sinus fluid. The prevertebral soft tissues are normal. No acute fractures or traumatic subluxations are visualized. 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 There are multilevel degenerative changes IMPRESSION: No evidence of acute fracture or traumatic subluxation. Electronically signed by: Brooks De Paz M.D. 12/01/2018 6:[address] head/brain wo con CLINICAL HISTORY: Head trauma. Acute change in mental status. COMPARISON STUDY: 11/09/2018 TECHNIQUE: Axial CT of the brain is performed from the vertex to the skull base. IV contrast was not administered for this examination. A dose lowering technique was utilized adhering to the principles of ALARA. CT DOSE: FINDINGS: There is a stable 5 mm right anterior middle cranial fossa extra-axial calcification. There is no CT evidence of acute cortical infarction. There is no evidence of midline shift. There is no acute hemorrhage. No calvarial fractures are visualized. There are patchy white matter hypodensities likely on a small vessel basis. There is no evidence of pathologic ventricular dilatation. There is no evidence of acute sinusitis IMPRESSION: No acute intracranial findings Electronically signed by: Brooks De Paz M.D. 12/01/2018 6:24 PM XR chest 1V portable CLINICAL HISTORY: fever COMPARISON STUDY: 11/29/2018 FINDINGS: The cardiac and mediastinal contours are normal. There is no evidence of focal pulmonary consolidation. There is no evidence of failure. No pleural effusions are visualized.[There is scattered tiny pulmonary nodules, likely postinflammatory. IMPRESSION: No active disease in the chest. Electronically signed by: Brooks De Paz M.D. 12/01/2018 5:26 PM ECG Data Attestation: I personally reviewed and interpreted this ECG as follows: Indication: abdominal pain Rate (beats per minute): 91 Rhythm: sinus rhythm Findings: + other (normal axis and intervals); no acute ischemic change and no ectopy Blood Pressure Blood Pressure Findings: Elevated blood pressure Blood Pressure Disposition: Referred to patients primary care provider [facility] Narrative Patient here with mild confusion on my bedside exam although patient states her current cognition is a significant deviation from her baseline. Patient afebrile on arrival as well as subsequent recheck here. Labs reassuring. No evidence of bacteremia/sepsis. On review of EMR, patient's UA from Sunday did not grow any organisms. I did discuss with them as possible she is having a drug fever or confusion related to the additional medication. Patient was hydrated here as a precaution as she appeared clinically dehydrated. Patient had no other complaints of pain on exam. Urine today did not reveal acute infection. Chest x-ray otherwise unremarkable. CT of the patient's head and C- spine due to her recent reported fall were also unremarkable. 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 Patient was also recently started on low-dose fentanyl patch which could be contributing to altered mentation as well. I do not suspect other occult traumatic injury. No evidence of acute cardiac pathology. Patient with a normal and nonfocal neuro exam. I do not suspect meningitis/encephalitis. I did discuss potential differential diagnosis with family at bedside. I do not suspect other toxicologic syndrome. Case discussed with hospitalist for additional evaluation and management. Impression & Plan Altered mental status, Dehydration, Hypertension Discharge Plan Visit Data *Final* Discharge Date/Time: 12/01/18 21:38 Chief Complaint: Fever Stated Complaint: CONFUSION ED Provider: Bouchra Lynch Discharge Problem: Altered mental status, Dehydration, Hypertension Patient Disposition: Admitted As Inpatient Condition: Good Discharge Instructions Interventions: ED Discharge Assessment Last Done: 12/01/18 21:38 Discharge Problem: Altered mental status Qualifiers: Altered mental status type: unspecified Qualified Code(s): R41.82 - Altered mental status, unspecified Hypertension Qualifiers: Hypertension type: essential hypertension Qualified Code(s): I10 - Essential (p rimary) hypertension The scribe's documentation has been prepared under my direction and personally reviewed by me in its entirety. I confirm that the note above accurately reflects all work, treatment, procedures, and medical decision making performed by me.
[2018-12-01] MEDS: ACETAMINOPHEN 325 MG TAB PO PRN (23:30)
[2018-12-02] MEDS: LEVOTHYROXINE SODIUM 100 MCG TABLET PO SCH (06:11)
--- NOTE | 2018-12-02 07:13 | Magnetic Resonance Report ---
MR brain wo con HISTORY: 83 years-old Female altered mental status, acutely altered mental status. COMPARISON: CT head 12/01/2018. TECHNIQUE: Multiplanar multisequence MRI of the brain was obtained without the use of IV contrast. FINDINGS: Motion degraded exam. Foot Miter Operator localizer images demonstrate no gross extracranial abnormality. No restri cted diffusion to suggest acute or subacute infarction. Midline structures including the corpus callo sum, brainstem, optic chiasm, pituitary and pineal glands appear unremarkable on the sagittal T1 seri es. There is no cerebellar tonsillar herniation. Degenerative changes are noted about the imaged cerv ical spine. Exophytic thickening about the right frontal calvarium near the apex is likely benign and may reflect an osteoma. Age-related involutional changes. No acute intracranial hemorrhage, midline shift, abnormal extra-axi al collection, hydrocephalus or intracranial mass identified. Cavum septum pellucidum. Moderate scatt ered T2/FLAIR hyperintensities about the white matter. Major flow voids at the level of the skull bas e appear patent. Trace bilateral mastoid effusions. Prior bilateral cataract repair. Mild mucosal thi ckening of the ethmoid air cells. Soft tissues are unremarkable. IMPRESSION: 1. Motion degraded exam without acute intracranial abnormality identified, specifically no evidence o f acute or subacute infarction. 2. Age-related involutional changes with moderate T2/FLAIR hyperintensities about the white matter perez ggestive of chronic microvascular ischemic disease. The above report was generated using voice recognition software. It may contain grammatical, syntax o r spelling errors. Dictated: 12/02/2018 6:32 AM Transcribed: 12/02/2018 7:01 AM Sara [id number] [email or web address] Electronically signed by: Oscar Major M.D. 12/02/2018 7:12 AM
[2018-12-02] MEDS: BUDESONIDE/FORMOTEROL FUMARATE 160/4.5 60 PUFFS/INHALER INH SCH ×2 (08:27→21:30)
[2018-12-02] MEDS: PANTOprazole 40 MG TAB PO SCH (08:27)
[2018-12-02] MEDS: TIOTROPIUM BROMIDE 5 PUFF/90 MCG INH INH SCH (08:27)
[2018-12-02] MEDS: HYDROCODONE/ACETAMOPHEN 5/325MG TAB PO PRN ×3 (10:57→21:29)
--- NOTE | 2018-12-02 12:40 | Neurology Consultation ---
Date of Consultation December 02, 2018 Assessment & Plan (1) Dementia: Patient has a significant dementia. Her mood is good and she is very pleasant cooperative. She does not have any significant focal neurologic findings, meningeal signs or encephalopathy/delirium. MRI of the brain shows aging changes and some chronic cerebral ischemia. Recommendations: 1. B12 level if this has not been done recently. 2. Consideration could be given to medication for dementia and further evaluation, but this should be done as an outpatient. I would not initiate any new neurologic medication while she is having GI/infectious issues. Please contact me if I can be of further assistance on this case. Overall, I spent a total of 50 minutes with this case including review of records, review of MRI films, direct evaluation the patient at bedside, and discussion of the case with the patient at bedside, and Dr. Birmingham, including differential diagnosis and treatment options. History of Present Illness Reason for Consultation: Patient is an 83-year-old, who I was asked to see at the request of Dr. Gerardo, for neurologic consultation regarding confusion/dementia. Requesting Physician: Dr. Gerardo Attending Physician: Kushal Birmingham History of Present Illness Patient has a history of COPD, hypertension, anxiety, and hypothyroidism. She has been having some GI issues recently and had a urinary tract infection earlier this month and was admitted December 01 with a fever and abdominal pain. There was some confusion but she has been noted to have forgetfulness suggestive of dementia. She was brought in the emergency room December 01 at 1652 with a temperature 37.9, pulse of 90, respiratory rate 19, blood pressure 176/88, and O2 saturation [address] scan of the head and cervical spine were unremarkable. MRI of the brain showed no acute changes but moderate old small vessel ischemic changes and atrophy only. I reviewed these films. CBC, Chem profile, TSH, and urinalysis were unremarkable. This morning blood pressure was 166/75 and temperature 36.7. Patient has no complaints of pain, headaches, dizziness, weakness, numbness, vision problems, swallowing issues, or incontinence. Allergies Allergy/AdvReac Type Severity Reaction Status Date / Time bupropion [From Wellbutrin] Allergy Mild Unknown Unverified 12/01/18 17:40 hydrochlorothiazide Allergy Mild Unknown Unverified 12/01/18 17:40 [From Avalide] irbesartan [From Avalide] Allergy Mild Unknown Unverified 12/01/18 17:40 roflumilast [From Daliresp] Allergy Mild Unknown Unverified 12/01/18 17:40 denosumab [From Prolia] Allergy Unknown Verified 12/01/18 17:40 tramadol Allergy Unknown Verified 12/01/18 17:40 ciprofloxacin [From Cipro] AdvReac Unknown Unverified 12/01/18 17:40 NSAIDS (Non-Steroidal AdvReac Unknown Unverified 12/01/18 17:40 Anti-Inflamma Home Medications Home Medications Medication Instructions Recorded Confirmed Type Spiriva with HandiHaler 1 cap INHALATION DAILY 11/04/18 12/01/18 History Symbicort 2 puff INHALATION BID 11/04/18 12/01/18 History citalopram [Celexa] 40 mg PO QAM 11/04/18 12/01/18 History omega 4-wyw-nyx-fish oil [Fish Oil] 1 cap PO QAM 11/04/18 12/01/18 History oxycodone-acetaminophen [Percocet] 1 tab PO Q6H PRN 11/04/18 12/01/18 History pantoprazole 40 mg PO BID 11/04/18 12/01/18 History pravastatin 40 mg PO QPM 11/04/18 12/01/18 History acetaminophen [Tylenol Extra 500 - 1,000 mg PO Q4 PRN 11/06/18 12/01/18 History Strength] ergocalciferol (vitamin D2) 50,000 unit PO 2XWK 11/06/18 12/01/18 History [Vitamin D2] guaifenesin [Mucinex] 600 mg PO BID 11/06/18 12/01/18 History levothyroxine 100 mcg PO QAM 11/08/18 12/01/18 History fentanyl 1 patch TRANSDERMAL Q72H 12/01/18 12/01/18 History Patient History Medical History Anxiety COPD (chronic obstructive pulmonary disease) Hypertension Hypothyroidism Osteopenia Surgical History S/P AAA (abdominal aortic aneurysm) repair Family History Father , in his 70s of an IN. Hypertension Myocardial infarction Mother , in her 70s after a fall No problems noted. 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 Feels Safe at Home: Yes Safety Concerns: Feels Safe At This Time Smoking Status: Former smoker Hx Alcohol Use: No Hx Substance Use: No Review of Systems Constitutional: no fever, no fatigue and no weakness Eyes: no diplopia, no eye pain and no worsening vision Ear, Nose, Mouth, Throat: no ear pain, no tinnitus, no hearing loss and no dysphagia Respiratory: no cough and no dyspnea Cardiovascular: no chest pain, no dyspnea and no palpitations Gastrointestinal: no abdominal pain, no nausea and no vomiting Genitourinary: no dysuria, no urinary frequency and no urinary incontinence Musculoskeletal: no back pain, no neck pain, no radicular pain, no myalgia, no muscle weakness and no muscle atrophy Integumentary: no rash and no lesions Neurologic: + memory loss; no gait abnormality, no falls, no localized weakness, no generalized weakness, no tingling, no numbness, no tremor(s), no abnormal movements, no dizziness, no headache(s), no abnormal speech, no behavioral changes and no confusion Psychiatric: no depression, no abnormal sleep pattern, no anxiety, no difficulty concentrating, no confusion and no hallucinations Endocrine: no fatigue and no flushing Hematologic / Lymphatic: no easy bleeding and no easy bruising Allergy / Immunological: no urticaria Physical Exam Physical Exam: The patient is right-handed. The patient is awake, alert, and attentive. Speech is normal without any aphasia or dysarthria. Mood is normal and affect is appropriate. She is pleasant and cooperative. She knows her name, her age, and where she is in the hospital. She knows she lives in a [facility] but cannot name that. She does not know the day, the date, the month, the year, the president, or do simple calculations. Long and short-term memory are poor. The discs are sharp with positive venous pulsations bilaterally. There are no exudates, hemorrhages, or blood vessel changes seen. Pupils are 3 mm bilaterally and reactive to light. Extraocular eye muscles are intact without nystagmus. Visual acuity and visual hancock seem normal grossly to confrontation. There are no deficits to sensation in the face in all 3 distributions of the fifth cranial nerve bilaterally. Corneal reflexes are positive bilaterally. Facial strength and symmetry was normal bilaterally. Hearing seems intact grossly to voice and finger rub bilaterally. Palate moves well without asymmetry. There is normal sternocleidomastoid and trapezius (shoulder shrug) strength bilaterally. Tongue is midline with good strength bilaterally. Neck has a full range of motion without discomfort. There are no cervical bruits bilaterally. There are no cranial or ocular bruits. Heart is without murmur. There is a regular rhythm and rate. Cervical, thoracic, and lumbar spine are nontender to palpation. Gait is narrow based but she has a leg length discrepancy with the left leg being much shorter than the right. This gives her a significant limp and makes her balance poor. With outstretched arms there is no drift. There are no resting, postural, or action tremors. There is no ataxia with finger to nose testing. There is good facility in the hands. No other abnormal involuntary movements are noted. Motor strength is 5/5 diffusely in the arms bilaterally including deltoids, bi ceps, triceps, brachioradialis, wrist flexors and extensors, master craftsman, and intrinsic hand muscles. Motor strength is 5/5 diffusely in the legs bilaterally including hip flexors, quadriceps, hamstrings, gastrocnemius, tibialis anterior, tibialis posterior, and Peroneii muscles bilaterally. Toe extensors are normal and there is good bulk in the extensor digitorum brevis muscles bilaterally. The limbs have good tone without rigidity or spasticity. There is no atrophy noted in the muscles. Muscle bulk is normal, there is no tenderness to palpation, no myotonia to percussion, and no fasciculations seen. Sensory examination is intact to touch and pin throughout all 4 limbs diffusely. Reflexes are 1/4 in the biceps, triceps, brachioradialis, quadriceps, and Achilles tendons bilaterally. Toes are downgoing with plantar stimulation bilaterally. Peripheral pulses are present and of normal quality distally in all 4 limbs. There is no peripheral edema noted in the limbs. Results & Data Vital Signs (Past 12 Hours) Vital Signs Temp Pulse Resp BP Pulse Ox 12/02/18 11:28 36.7 C 89 18 166/75 H 97 12/02/18 07:10 36.5 C 101 H 18 178/90 H 95 12/02/18 00:47 173/74 H Diagnostic Findings MR brain wo con HISTORY: 83 years-old Female altered mental status, acutely altered mental status. COMPARISON: CT head 12/01/2018. TECHNIQUE: Multiplanar multisequence MRI of the brain was obtained without the use of IV contrast. FINDINGS: Motion degraded exam. Eligibility Worker localizer images demonstrate no gross extracranial abnormality. No restricted diffusion to suggest acute or subacute infarction. Midline structures including the corpus callosum, brainstem, optic chiasm, pituitary and pineal glands appear unremarkable on the sagittal T1 series. There is no cerebellar tonsillar herniation. Degenerative changes are noted about the imaged cervical spine. Exophytic thickening about the right frontal calvarium near the apex is likely benign and may reflect an osteoma. Age-related involutional changes. No acute intracranial hemorrhage, midline shift, abnormal extra-axial collection, hydrocephalus or intracranial mass identified. Cavum septum pellucidum. Moderate scattered T2/FLAIR hyperintensities about the white matter. Major flow voids at the level of the skull base appear patent. Trace bilateral mastoid effusions. Prior bilateral cataract repair. Mild mucosal thickening of the ethmoid air cells. Soft tissues are unremarkable. IMPRESSION: 1. Motion degraded exam without acute intracranial abnormality identified, specifically no evidence of acute or subacute infarction. 2. Age-related involutional changes with moderate T2/FLAIR hyperintensities about the white matter suggestive of chronic microvascular ischemic disease. The above report was generated using voice recognition software. It may contain grammatical, syntax or spelling errors. Dictated: 12/02/2018 6:32 AM Transcribed: 12/02/2018 7:01 AM Sara [id number] [email or web address] Electronically signed by: Oscar Major M.D. 12/02/2018 7:12 AM
--- NOTE | 2018-12-02 21:08 | Hospitalist Progress Note ---
Date of Service December 02, 2018 Assessment & Plan (1) Dementia: Dementia/depression/altered mental status- Multiple contributing etiologies: Recent urinary tract infection, progressive dementia, left hip pain, more recently hallucinations due to fentanyl patch, other medications, other metabolic issues. Discontinuing fentanyl patch, Celexa and oxycodone. Follow urine cultures and blood cultures. Follow for resolution of hallucinations off with fentanyl patch. CT of head was negative for acute bleed. CT cervical spine is negative Order an MRI of the brain without contrast to assess for possible strokes. Consult neurology. Appreciate input from Neuro: Patient has a significant dementia. Her mood is good and she is very pleasant cooperative. She does not have any significant focal neurologic findings, meningeal signs or encephalopathy/delirium. MRI of the brain shows aging changes and some chronic cerebral ischemia. Recommendations: 1. B12 level if this has not been done recently. 2. Consideration could be given to medication for dementia and further evaluation, but this should be done as an outpatient. I would not initiate any new neurologic medication while she is having GI/infectious issues. Patient main issue is placement. 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 Working with case management. (2) Altered mental status: See above (3) Depression: See above (4) COPD (chronic obstructive pulmonary disease): Continue Symbicort, Spiriva, and Mucinex. (5) Hyperlipidemia LDL goal <70: Continue pravastatin 40 mg in the evening. (6) Hypothyroidism: Continue levothyroxine sodium 100 mcg every morning (7) Duodenal bulb ulcer: Pantoprazole 40 mg p.o. twice daily (8) Left hip pain: History of fracture in the past, with recent reinjury. Patient is sensitive to light pressure. Try to avoid any strong pain medications due to milk multiple medication sensitivities. Placed on Tylenol 600 mg p.o. every 4 hours PRN mild pain or temperature. [place] 5/325 1 p.o. every 4 hours as needed moderate pain. Morphine sulfate, 2 mg IV every 6 hours as needed severe pain, starting on 12 hours, once the fentanyl patch has worn off completely Patient had been placed on a fentanyl patch 2 days ago, which has caused significant issues with hallucinations and will be discontinued. Will try to limit narcotics as this may worsen her mental status (9) Pseudomonas urinary tract infection: Repeat urinalysis and urine culture. Treat if positive. Recent cultures remain negative. Subjective Patient remains confused. She does not provide signficant history. She states has never been here before. Review of Systems Review of Systems: The patient, with the help of her family, denies chest pain, palpitations, shortness of breath, dyspnea on exertion, cough, lower extremity swelling, sore throat, fevers, chills, sweats, nausea, vomiting, diarrhea , constipation, abdominal pain, pelvic pain, blood in urine or stool, dysuria, urinary frequency or urgency, lightheadedness, dizziness, headache, loss of consciousness, rash, abnormal bruising or bleeding, focal or generalized weakness, numbness or tingling in arms, generalized arthralgias or myalgias, back or neck pain, or night sweats. The review of systems is otherwise negative other than for that already noted above, and at least 10 systems have been reviewed. Physical Exam Physical Exam: he patient is awake, alert and oriented 2, normocephalic and atraumatic, lying in bed and in no acute distress. HEENT--PERRL, EOMI, mucous membranes and oropharynx dry. Neck--supple. No JVD. No bruits. Thyroid normal, trachea midline, no adenopathy. Heart--normal S1 and S2. No murmurs, rubs or gallops. Lungs--clear bilaterally, no respiratory distress, no accessory muscle use. Abdomen--normal bowel sounds and soft. Nontender. Nondistended. Extremities--no cyanosis or clubbing. No edema. There are good distal pulses b/l. Dermatologic--normal skin turgor, normal color, no abnormal lymph nodes, no rash. Neurologic--cranial nerves II through XII grossly intact. Rheumatologic--decreased range of motion, and pain noted over left hip. Psychiatric--normal affect Results & Data Vital Signs (Past 12 Hours) Vital Signs Temp Pulse Pulse Resp BP Pulse Ox 12/02/18 19:12 36.5 C 85 18 114/55 L 95 12/02/18 16:00 87 12/02/18 14:56 36.9 C 88 20 189/76 H 96 12/02/18 11:28 36.7 C 89 18 166/75 H 97 PG Care Time/CCT Total # of Minutes Spent Total Time Spent with Patient: Total time spent is greater than 50% in coordination of care (as documented) at patient's floor/unit and/or counseling patient: (1) Depression Depression Type: unspecified Qualified Code(s): F32.9 - Major depressive disorder, single episode, unspecified (2) Hypothyroidism Hypothyroidism type: acquired Qualified Code(s): E03.9 - Hypothyroidism, unspecified (3) Altered mental status Altered mental status type: unspecified Qualified Code(s): R41.82 - Altered mental status, unspecified (4) COPD (chronic obstructive pulmonary disease) COPD type: unspecified COPD Qualified Code(s): J44.9 - Chronic obstructive pulmonary disease, unspecified
[2018-12-02] MEDS: PRAVASTATIN SOD 40 MG TAB PO SCH (21:29)
[2018-12-03] MEDS: LEVOTHYROXINE SODIUM 100 MCG TABLET PO SCH (05:49)
[2018-12-03] MEDS: PANTOprazole 40 MG TAB PO SCH (07:33)
[2018-12-03] MEDS: BUDESONIDE/FORMOTEROL FUMARATE 160/4.5 60 PUFFS/INHALER INH SCH ×2 (07:34→20:41)
[2018-12-03] MEDS: TIOTROPIUM BROMIDE 5 PUFF/90 MCG INH INH SCH (07:34)
[2018-12-03] MEDS: HYDROCODONE/ACETAMOPHEN 5/325MG TAB PO PRN ×3 (07:36→20:41)
[2018-12-03] MEDS ORDERED: ONDANSETRON INJ 2 MG/ML 2 ML VIAL IV PRN (08:28)
[2018-12-03] MEDS: MAGNESIUM HYDROXIDE SUSP 30 ML UDC PO PRN (20:41)
[2018-12-03] MEDS: PRAVASTATIN SOD 40 MG TAB PO SCH (20:42)
--- NOTE | 2018-12-03 22:14 | Hospitalist Progress Note ---
Date of Service December 03, 2018 Assessment & Plan (1) Dementia: Dementia/depression/altered mental status- Multiple contributing etiologies: Recent urinary tract infection, progressive dementia, left hip pain, more recently hallucinations due to fentanyl patch, other medications, other metabolic issues. Discontinuing fentanyl patch, Celexa and oxycodone. Follow urine cultures and blood cultures. Follow for resolution of hallucinations off with fentanyl patch. CT of head was negative for acute bleed. CT cervical spine is negative Order an MRI of the brain without contrast to assess for possible strokes. Consult neurology. Appreciate input from Neuro: Patient has a significant dementia. Her mood is good and she is very pleasant cooperative. She does not have any significant focal neurologic findings, meningeal signs or encephalopathy/delirium. MRI of the brain shows aging changes and some chronic cerebral ischemia. Recommendations: 1. B12 level if this has not been done recently. 2. Consideration could be given to medication for dementia and further evaluation, but this should be done as an outpatient. I would not initiate any new neurologic medication while she is having GI/infectious issues. Patient main issue is placement. 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 Working with case management. After discussion with daughter, patient may likely have toxic encephaloptahy from medication (narcotics), with metabolic encephalopathy from pain. But this may very well be dementia. Will be able to differentiate once hip is repaired and patient is tapered off narcotics. (2) Altered mental status: See above (3) Depression: See above (4) COPD (chronic obstructive pulmonary disease): Continue Symbicort, Spiriva, and Mucinex. (5) Hyperlipidemia LDL goal <70: Continue pravastatin 40 mg in the evening. (6) Hypothyroidism: Continue levothyroxine sodium 100 mcg every morning (7) Duodenal bulb ulcer: Pantoprazole 40 mg p.o. daily (8) Left hip pain: History of fracture in the past, with recent reinjury. Patient is sensitive to light pressure. Try to avoid any strong pain medications due to milk multiple medication sensitivities. Placed on Tylenol 600 mg p.o. every 4 hours PRN mild pain or temperature. [place] 5/325 1 p.o. every 4 hours as needed moderate pain. Morphine sulfate, 2 mg IV every 6 hours as needed severe pain, starting on 12 hours, once the fentanyl patch has worn off completely Patient had been placed on a fentanyl patch 2 days ago, which has caused significant issues with hallucinations and will be discontinued. Will try to limit narcotics as this may worsen her mental status (9) Pseudomonas urinary tract infection: Repeat urinalysis and urine culture. Treat if positive. Recent cultures remain negative. Spent 35 minutes in management of patient. Subjective 83 female continues to be confused. Her daughter is at bedside. She mentions how since this past March she has been becoming more forgetful. During the time she was living in [facility] by herself, patient became more confused and was not taking her medicine. This has also been complicated by her hip PA whcih needs a replacement and she has been requiring signifcant pain medicine. Patient will get this repaired in the next few weeks. Review of Systems Review of Systems: The patient denies chest pain, palpitations, shortness of breath, dyspnea on exertion, cough, lower extremity swelling, sore throat, fevers, chills, sweats, nausea, vomiting, diarrhea , constipation, abdominal pain, pelvic pain, blood in urine or stool, dysuria, urinary frequency or urgency, lightheadedness, dizziness, headache, loss of consciousness, rash, abnormal bruising or bleeding, focal or generalized weakness, numbness or tingling in arms, generalized arthralgias or myalgias, back or neck pain, or night sweats. The review of systems is otherwise negative other than for that already noted above, and at least 10 systems have been reviewed. Physical Exam Physical Exam: The patient is awake, alert and oriented 2, normocephalic and atraumatic, sitting in chair, and in no acute distress. HEENT--PERRL, EOMI, mucous membranes and oropharynx dry. Neck--supple. No JVD. No bruits. Thyroid normal, trachea midline, no adenopathy. Heart--normal S1 and S2. No murmurs, rubs or gallops. Lungs--clear bilaterally, no respiratory distress, no accessory muscle use. Abdomen--normal bowel sounds and soft. Nontender. Nondistended. Extremities--no cyanosis or clubbing. No edema. There are good distal pulses b/l. Dermatologic--normal skin turgor, normal color, no abnormal lymph nodes, no rash. Neurologic--cranial nerves II through XII grossly intact. Rheumatologic--decreased range of motion, and pain noted over left hip. Psychiatric--normal affect Results & Data Vital Signs (Past 12 Hours) Vital Signs Temp Pulse Pulse Pulse Resp BP Pulse Ox 12/03/18 19:25 36.7 C 77 20 142/75 H 97 12/03/18 16:00 85 12/03/18 15:48 36.6 C 83 19 110/58 L 97 12/03/18 11:31 36.7 C 83 20 118/64 98 PG Care Time/CCT Total # of Minutes Spent Total Time Spent with Patient: Total time spent is greater than 50% in coordination of care (as documented) at patient's floor/unit and/or counseling patient: (1) Depression Depression Type: unspecified Qualified Code(s): F32.9 - Major depressive disorder, single episode, unspecified (2) Hypothyroidism Hypothyroidism type: acquired Qualified Code(s): E03.9 - Hypothyroidism, unspecified (3) Altered mental status Altered mental status type: unspecified Qualified Code(s): R41.82 - Altered mental status, unspecified (4) COPD (chronic obstructive pulmonary disease) COPD type: unspecified COPD Qualified Code(s): J44.9 - Chronic obstructive pulmonary disease, unspecified
[2018-12-04] MEDS: HYDROCODONE/ACETAMOPHEN 5/325MG TAB PO PRN ×3 (00:32→20:49)
[2018-12-04] MEDS: LEVOTHYROXINE SODIUM 100 MCG TABLET PO SCH (05:29)
[2018-12-04] MEDS: TIOTROPIUM BROMIDE 5 PUFF/90 MCG INH INH SCH (07:34)
[2018-12-04] MEDS: PANTOprazole 40 MG TAB PO SCH (07:34)
[2018-12-04] MEDS: BUDESONIDE/FORMOTEROL FUMARATE 160/4.5 60 PUFFS/INHALER INH SCH ×2 (07:35→20:48)
[2018-12-04] MEDS: MAGNESIUM HYDROXIDE SUSP 30 ML UDC PO PRN (09:28)
[2018-12-04] MEDS: PRAVASTATIN SOD 40 MG TAB PO SCH (20:48)
--- NOTE | 2018-12-04 23:44 | Hospitalist Progress Note ---
Date of Service December 04, 2018 Assessment & Plan (1) Dementia: Dementia/depression/altered mental status- Multiple contributing etiologies: Recent urinary tract infection, progressive dementia, left hip pain, more recently hallucinations due to fentanyl patch, other medications, other metabolic issues. Discontinuing fentanyl patch, Celexa and oxycodone. Follow urine cultures and blood cultures. Follow for resolution of hallucinations off with fentanyl patch. CT of head was negative for acute bleed. CT cervical spine is negative Order an MRI of the brain without contrast to assess for possible strokes. Consult neurology. Appreciate input from Neuro: Patient has a significant dementia. Her mood is good and she is very pleasant cooperative. She does not have any significant focal neurologic findings, meningeal signs or encephalopathy/delirium. MRI of the brain shows aging changes and some chronic cerebral ischemia. Recommendations: 1. B12 level if this has not been done recently. 2. Consideration could be given to medication for dementia and further evaluation, but this should be done as an outpatient. I would not initiate any new neurologic medication while she is having GI/infectious issues. Patient main issue is placement. 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 Working with case management. After discussion with daughter, patient may likely have toxic encephalopathy from medication (narcotics), with metabolic encephalopathy from pain. But this may very well be dementia. Will be able to differentiate once hip is repaired and patient is tapered off narcotics. No change in management on 12/04 (2) Altered mental status: See above (3) Depression: See above (4) COPD (chronic obstructive pulmonary disease): Continue Symbicort, Spiriva, and Mucinex. (5) Hyperlipidemia LDL goal <70: Continue pravastatin 40 mg in the evening. (6) Hypothyroidism: Continue levothyroxine sodium 100 mcg every morning (7) Duodenal bulb ulcer: Pantoprazole 40 mg p.o. daily (8) Left hip pain: History of fracture in the past, with recent reinjury. Patient is sensitive to light pressure. Try to avoid any strong pain medications due to milk multiple medication sensitivities. Placed on Tylenol 600 mg p.o. every 4 hours PRN mild pain or temperature. [place] 5/325 1 p.o. every 4 hours as needed moderate pain. Morphine sulfate, 2 mg IV every 6 hours as needed severe pain, starting on 12 hours, once the fentanyl patch has worn off completely Patient had been placed on a fentanyl patch 2 days ago, which has caused s ignificant issues with hallucinations and will be discontinued. Will try to limit narcotics as this may worsen her mental status (9) Pseudomonas urinary tract infection: Repeat urinalysis and urine culture. Treat if positive. Recent cultures remain negative. Spent 25 minutes in management of patient. Subjective Patient reports no new complaints. Review of Systems Review of Systems: The patient denies chest pain, palpitations, shortness of breath, dyspnea on exertion, cough, lower extremity swelling, sore throat, fevers, chills, sweats, nausea, vomiting, diarrhea , constipation, abdominal pain, pelvic pain, blood in urine or stool, dysuria, urinary frequency or urgency, lightheadedness, dizziness, headache, loss of consciousness, rash, abnormal bruising or bleeding, focal or generalized weakness, numbness or tingling in arms, generalized arthralgias or myalgias, back or neck pain, or night sweats. The review of systems is otherwise negative other than for that already noted above, and at least 10 systems have been reviewed. Physical Exam Physical Exam: The patient is awake, alert and oriented 2, normocephalic and atraumatic, sitting in chair, and in no acute distress. HEENT--PERRL, EOMI, mucous membranes and oropharynx dry. Neck--supple. No JVD. No bruits. Thyroid normal, trachea midline, no adenopathy. Heart--normal S1 and S2. No murmurs, rubs or gallops. Lungs--clear bilaterally, no respiratory distress, no accessory muscle use. Abdomen--normal bowel sounds and soft. Nontender. Nondistended. Extremities--no cyanosis or clubbing. No edema. There are good distal pulses b/l. Dermatologic--normal skin turgor, normal color, no abnormal lymph nodes, no rash. Neurologic--cranial nerves II through XII grossly intact. Rheumatologic--decreased range of motion, and pain noted over left hip. Psychiatric--normal affect Results & Data Vital Signs (Past 12 Hours) Vital Signs Temp Pulse Pulse Resp BP BP Pulse Ox 12/04/18 23:03 36.8 C 76 18 158/78 H 97 12/04/18 16:20 78 12/04/18 15:17 36.8 C 78 18 135/72 100 12/04/18 12:05 36.9 C 83 18 136/87 97 PG Care Time/CCT Total # of Minutes Spent Total Time Spent with Patient: Total time spent is greater than 50% in coordination of care (as documented) at patient's floor/unit and/or counseling patient: (1) Depression Depression Type: unspecified Qualified Code(s): F32.9 - Major depressive disorder, single episode, unspecified (2) Hypothyroidism Hypothyroidism type: acquired Qualified Code(s): E03.9 - Hypothyroidism, unspecified (3) Altered mental status Altered mental status type: unspecified Qualified Code(s): R41.82 - Altered mental status, unspecified (4) COPD (chronic obstructive pulmonary disease) COPD type: unspecified COPD Qualified Code(s): J44.9 - Chronic obstructive pulmonary disease, unspecified
[2018-12-05] MEDS: HYDROCODONE/ACETAMOPHEN 5/325MG TAB PO PRN ×4 (01:06→18:51)
[2018-12-05] MEDS: LEVOTHYROXINE SODIUM 100 MCG TABLET PO SCH (06:26)
[2018-12-05] MEDS: PANTOprazole 40 MG TAB PO SCH (08:11)
[2018-12-05] MEDS: MAGNESIUM HYDROXIDE SUSP 30 ML UDC PO PRN (08:11)
[2018-12-05] MEDS: TIOTROPIUM BROMIDE 5 PUFF/90 MCG INH INH SCH (08:11)
[2018-12-05] MEDS: BUDESONIDE/FORMOTEROL FUMARATE 160/4.5 60 PUFFS/INHALER INH SCH ×2 (08:12→20:07)
[2018-12-05] MEDS: PRAVASTATIN SOD 40 MG TAB PO SCH (20:08)
--- NOTE | 2018-12-05 23:20 | Hospitalist Progress Note ---
Date of Service December 05, 2018 Assessment & Plan (1) Dementia: Dementia/depression/altered mental status- Multiple contributing etiologies: Recent urinary tract infection, progressive dementia, left hip pain, more recently hallucinations due to fentanyl patch, other medications, other metabolic issues. Discontinuing fentanyl patch, Celexa and oxycodone. Follow urine cultures and blood cultures. Follow for resolution of hallucinations off with fentanyl patch. CT of head was negative for acute bleed. CT cervical spine is negative Order an MRI of the brain without contrast to assess for possible strokes. Consult neurology. Appreciate input from Neuro: Patient has a significant dementia. Her mood is good and she is very pleasant cooperative. She does not have any significant focal neurologic findings, meningeal signs or encephalopathy/delirium. MRI of the brain shows aging changes and some chronic cerebral ischemia. Recommendations: 1. B12 level if this has not been done recently. 2. Consideration could be given to medication for dementia and further evaluation, but this should be done as an outpatient. I would not initiate any new neurologic medication while she is having GI/infectious issues. Patient main issue is placement. 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 Working with case management. After discussion with daughter, patient may likely have toxic encephalopathy from medication (narcotics), with metabolic encephalopathy from pain. But this may very well be dementia. Will be able to differentiate once hip is repaired and patient is tapered off narcotics. No change in management on 12/05 Pending placement. (2) Altered mental status: See above (3) Depression: See above (4) COPD (chronic obstructive pulmonary disease): Continue Symbicort, Spiriva, and Mucinex. (5) Hyperlipidemia LDL goal <70: Continue pravastatin 40 mg in the evening. (6) Hypothyroidism: Continue levothyroxine sodium 100 mcg every morning (7) Duodenal bulb ulcer: Pantoprazole 40 mg p.o. daily (8) Left hip pain: History of fracture in the past, with recent reinjury. Patient is sensitive to light pressure. Try to avoid any strong pain medications due to milk multiple medication sensitivities. Placed on Tylenol 600 mg p.o. every 4 hours PRN mild pain or temperature. [place] 5/325 1 p.o. every 4 hours as needed moderate pain. Morphine sulfate, 2 mg IV every 6 hours as needed severe pain, starting on 12 hours, once the fentanyl patch has worn off completely Patient had been placed on a fentanyl patch 2 days ago, which has caused significant issues with hallucinations and will be discontinued. Will try to limit narcotics as this may worsen her mental status (9) Pseudomonas urinary tract infection: Repeat urinalysis and urine culture. Treat if positive. Recent cultures remain negative. Spent 25 minutes in management of patient. Pending placement. Subjective Patient has no new complaints. She reports he left hip pain which is chronic. Review of Systems Review of Systems: The patient denies chest pain, palpitations, shortness of breath, dyspnea on exertion, cough, lower extremity swelling, sore throat, fevers, chills, sweats, nausea, vomiting, diarrhea , constipation, abdominal pain, pelvic pain, blood in urine or stool, dysuria, urinary frequency or urgency, lightheadedness, dizziness, headache, loss of consciousness, rash, abnormal bruising or bleeding, focal or generalized weakness, numbness or tingling in arms, generalized arthralgias or myalgias, back or neck pain, or night sweats. The review of systems is otherwise negative other than for that already noted above, and at least 10 systems have been reviewed. Physical Exam Physical Exam: The patient is awake, alert and oriented 2, normocephalic and atraumatic, sitting in chair, and in no acute distress. HEENT--PERRL, EOMI, mucous membranes and oropharynx dry. Neck--supple. No JVD. No bruits. Thyroid normal, trachea midline, no adenopathy. Heart--normal S1 and S2. No murmurs, rubs or gallops. Lungs--clear bilaterally, no respiratory distress, no accessory muscle use. Abdomen--normal bowel sounds and soft. Nontender. Nondistended. Extremities--no cyanosis or clubbing. No edema. There are good distal pulses b/l. Dermatologic--normal skin turgor, normal color, no abnormal lymph nodes, no rash. Neurologic--cranial nerves II through XII grossly intact. Rheumatologic--decreased range of motion, and pain noted over left hip. Psychiatric--normal affect Results & Data Vital Signs (Past 12 Hours) Vital Signs Temp Pulse Pulse Resp BP Pulse Ox 12/05/18 15:46 70 12/05/18 15:09 36.6 C 81 20 150/73 H 97 PG Care Time/CCT Total # of Minutes Spent Total Time Spent with Patient: Total time spent is greater than 50% in coordination of care (as documented) at patient's floor/unit and/or counseling patient: (1) Depression Depression Type: unspecified Qualified Code(s): F32.9 - Major depressive disorder, single episode, unspecified (2) Hypothyroidism Hypothyroidism type: acquired Qualified Code(s): E03.9 - Hypothyroidism, unspecified (3) Altered mental status Altered mental status type: unspecified Qualified Code(s): R41.82 - Altered mental status, unspecified (4) COPD (chronic obstructive pulmonary disease) COPD type: unspecified COPD Qualified Code(s): J44.9 - Chronic obstructive pulmonary disease, unspecified
[2018-12-06] MEDS: HYDROCODONE/ACETAMOPHEN 5/325MG TAB PO PRN ×3 (01:00→10:34)
[2018-12-06] MEDS: LEVOTHYROXINE SODIUM 100 MCG TABLET PO SCH ×2 (06:08→06:14)
[2018-12-06] MEDS: BUDESONIDE/FORMOTEROL FUMARATE 160/4.5 60 PUFFS/INHALER INH SCH ×2 (07:52→20:54)
[2018-12-06] MEDS: PANTOprazole 40 MG TAB PO SCH (07:52)
[2018-12-06] MEDS: TIOTROPIUM BROMIDE 5 PUFF/90 MCG INH INH SCH (07:52)
[2018-12-06] MEDS: ACETAMINOPHEN 325 MG TAB PO PRN ×2 (09:22→20:56)
[2018-12-06] MEDS: PRAVASTATIN SOD 40 MG TAB PO SCH (20:54)
--- NOTE | 2018-12-06 22:56 | Hospitalist Progress Note ---
Date of Service December 06, 2018 Assessment & Plan (1) Dementia: Dementia/depression/altered mental status- Multiple contributing etiologies: Recent urinary tract infection, progressive dementia, left hip pain, more recently hallucinations due to fentanyl patch, other medications, other metabolic issues. Discontinuing fentanyl patch, Celexa and oxycodone. Follow urine cultures and blood cultures. Follow for resolution of hallucinations off with fentanyl patch. CT of head was negative for acute bleed. CT cervical spine is negative Order an MRI of the brain without contrast to assess for possible strokes. Consult neurology. Appreciate input from Neuro: Patient has a significant dementia. Her mood is good and she is very pleasant cooperative. She does not have any significant focal neurologic findings, meningeal signs or encephalopathy/delirium. MRI of the brain shows aging changes and some chronic cerebral ischemia. Recommendations: 1. B12 level if this has not been done recently. 2. Consideration could be given to medication for dementia and further evaluation, but this should be done as an outpatient. I would not initiate any new neurologic medication while she is having GI/infectious issues. Patient main issue is placement. 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 Working with case management. After discussion with daughter, patient may likely have toxic encephalopathy from medication (narcotics), with metabolic encephalopathy from pain. But this may very well be dementia. Will be able to differentiate once hip is repaired and patient is tapered off narcotics. No change in management on 12/06 Pending placement. (2) Altered mental status: See above (3) Depression: See above (4) COPD (chronic obstructive pulmonary disease): Continue Symbicort, Spiriva, and Mucinex. (5) Hyperlipidemia LDL goal <70: Continue pravastatin 40 mg in the evening. (6) Hypothyroidism: Continue levothyroxine sodium 100 mcg every morning (7) Duodenal bulb ulcer: Pantoprazole 40 mg p.o. daily (8) Left hip pain: History of fracture in the past, with recent reinjury. Patient is sensitive to light pressure. Try to avoid any strong pain medications due to milk multiple medication sensitivities. Placed on Tylenol 600 mg p.o. every 4 hours PRN mild pain or temperature. [place] 5/325 1 p.o. every 4 hours as needed moderate pain. Morphine sulfate, 2 mg IV every 6 hours as needed severe pain, starting on 12 hours, once the fentanyl patch has worn off completely Patient had been placed on a fentanyl patch 2 days ago, which has caused significant issues with hallucinations and will be discontinued. Will try to limit narcotics as this may worsen her mental status (9) Pseudomonas urinary tract infection: Cultures are negative. Spent 25 minutes in management of patient. Pending placement. Subjective Patient has no new complaints today. Review of Systems Review of Systems: All systems reviewed & are unremarkable except as noted in HPI & below Physical Exam Physical Exam: The patient is awake, alert and oriented 2, normocephalic and atraumatic, sitting in chair, and in no acute distress. HEENT--PERRL, EOMI, mucous membranes and oropharynx dry. Neck--supple. No JVD. No bruits. Thyroid normal, trachea midline, no adenopathy. Heart--normal S1 and S2. No murmurs, rubs or gallops. Lungs--clear bilaterally, no respiratory distress, no accessory muscle use. Abdomen--normal bowel sounds and soft. Nontender. Nondistended. Extremities--no cyanosis or clubbing. No edema. There are good distal pulses b/l. Dermatologic--normal skin turgor, normal color, no abnormal lymph nodes, no rash. Neurologic--cranial nerves II through XII grossly intact. Rheumatologic--decreased range of motion, and pain noted over left hip. Psychiatric--normal affect Results & Data Vital Signs (Past 12 Hours) Vital Signs Temp Pulse Resp BP Pulse Ox 12/06/18 15:46 36.7 C 77 20 157/90 H 97 12/06/18 15:36 96 PG Care Time/CCT Total # of Minutes Spent Total Time Spent with Patient: Total time spent is greater than 50% in coordination of care (as documented) at patient's floor/unit and/or counseling patient: (1) Depression Depression Type: unspecified Qualified Code(s): F32.9 - Major depressive disorder, single episode, unspecified (2) Hypothyroidism Hypothyroidism type: acquired Qualified Code(s): E03.9 - Hypothyroidism, unspecified (3) Altered mental status Altered mental status type: unspecified Qualified Code(s): R41.82 - Altered mental status, unspecified (4) COPD (chronic obstructive pulmonary disease) COPD type: unspecified COPD Qualified Code(s): J44.9 - Chronic obstructive pulmonary disease, unspecified
[2018-12-07] MEDS: HYDROCODONE/ACETAMOPHEN 5/325MG TAB PO PRN ×3 (05:30→18:27)
[2018-12-07] MEDS: LEVOTHYROXINE SODIUM 100 MCG TABLET PO SCH (05:30)
[2018-12-07] MEDS: PANTOprazole 40 MG TAB PO SCH (07:59)
[2018-12-07] MEDS: BUDESONIDE/FORMOTEROL FUMARATE 160/4.5 60 PUFFS/INHALER INH SCH ×2 (08:00→21:08)
[2018-12-07] MEDS: TIOTROPIUM BROMIDE 5 PUFF/90 MCG INH INH SCH (08:27)
--- NOTE | 2018-12-07 16:23 | Hospitalist Progress Note ---
Date of Service December 07, 2018 Assessment & Plan (1) Dementia: Supportive care, outpatient follow-up. Would be reasonable to consider adding Aricept or Namenda at this point, but will defer to outpatient PCP given this is much more chronic ramifications. one as an outpatient. I would not initiate any new neurologic medication while she is having GI/infectious issues. (2) Altered mental status: Seems to be around baseline now per people who know her better. (3) Depression: Continue SSRI. (4) COPD (chronic obstructive pulmonary disease): Continue Symbicort, Spiriva, and Mucinex. (5) Hyperlipidemia LDL goal <70: Continue Pravachol (6) Hypothyroidism: Continue levothyroxine sodium 100 mcg every morning (7) Duodenal bulb ulcer: Pantoprazole 40 mg p.o. daily (8) Left hip pain: Severe arthritis, this will be operated on in about 10 days, it appears to be in her benefit to get this fixed as best as possible given her severe pain, and how much the pain may be driving her mental status as well. Continue current regimen for pain control, given that she does have pain in the IT band and piriformis distribution, will also add diclofenac gel and give a trial of OMT if possible to see if we can relieve some of her pain that way. (9) Pseudomonas urinary tract infection: Cultures now negative. Off antibiotics. (10) Discharge planning issues: Anticipate [facility] on Sunday (11) DVT prophylaxis: Heparin subcu Subjective Ongoing severe left hip pain. Pain goes down the side of her leg as well as around her buttock. Later discussed with her daughter, patient is actually scheduled for hip surgery at [facility] in about 10 days, hip x-rays were reviewed and severe arthritis is present. Not a whole lot of HPI review of systems obtainable from patient, given her baseline mental status. Extensive discussion with daughter. Review of Systems Review of Systems: Unobtainable due to cognitive status Physical Exam Physical Exam: In general she is awake and alert pleasant but no distress. HEENT normocephalic atraumatic mucous membranes moist. Breathing unlabored no accessory muscle use good effort. Skin shows no rashes no pallor or icterus. Extremities show no cyanosis clubbing or edema. Musculoskeletal shows left IT band and piriformis region soft tissue high tone, tender, decreased range of motion. Did not attempt OMT due to patient being in a chair eating her lunch with a tray in front of her. Results & Data Vital Signs (Past 12 Hours) Vital Signs Temp Pulse Resp BP BP Pulse Ox 12/07/18 14:41 36.6 C 93 H 20 129/68 98 12/07/18 08:33 129/60 124/66 12/07/18 07:07 36.9 C 85 18 190/84 H 95 PG Care Time/CCT Total # of Minutes Spent Total Time Spent with Patient: Total time spent is greater than 50% in coordination of care (as documented) at patient's floor/unit and/or counseling patient: (1) Altered mental status Altered mental status type: unspecified Qualified Code(s): R41.82 - Altered mental status, unspecified (2) Depression Depression Type: unspecified Qualified Code(s): F32.9 - Major depressive disorder, single episode, unspecified (3) COPD (chronic obstructive pulmonary disease) COPD type: unspecified COPD Qualified Code(s): J44.9 - Chronic obstructive pulmonary disease, unspecified (4) Hypothyroidism Hypothyroidism type: acquired Qualified Code(s): E03.9 - Hypothyroidism, unspecified
[2018-12-07] MEDS: DICLOFENAC SOD 1% GEL 100 GM TUBE EXT SCH ×2 (17:16→21:08)
[2018-12-07] MEDS: ACETAMINOPHEN 325 MG TAB PO PRN (19:32)
--- NOTE | 2018-12-07 20:04 | Progress Note ---
Date of Service December 07, 2018 Received a call from the patient's nurse that the patient was complaining of a headache over the past couple of hours. This apparently is a new complaint for the patient. No improvement with Tylenol or [place]. On brief chart review, patient was admitted on December 01 for altered mental status. Thought to be combination of UTI, progressive dementia, and fentanyl patch use amongst other causes. She was reportedly back at her baseline earlier today. Reviewed afternoon vitals. Saw patient at bedside. I first saw the patient mum conor under her breath as I walked in the room. She will open her eyes to voice and turned her head to look in my direction. When asked how she was doing she said that she had a headache. When asked to follow commands such as squeeze my hand she said that she had a headache but would not follow commands. 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 She pulled her legs up in bed as well. Pupils about 2 mm equally. Turns her neck easily. Moving all extremities as above. Difficult to tell if this headache is new/very acute vs sundowning vs ongoing. Discussed case with Dr. De Souza. - Conservatively, will CT scan her head since the last scan was about a week ago. - If the scan is negative, will consider low-dose antipsychotic as next round of headache control. Lubna Fraire, PGY3 Overnight call Results & Data Vital Signs (Past 12 Hours) Vital Signs Temp Pulse Resp BP BP Pulse Ox 12/07/18 14:41 36.6 C 93 H 20 129/68 98 12/07/18 08:33 129/60 124/66
--- NOTE | 2018-12-07 20:25 | CT Scan Report ---
CT head/brain wo con CLINICAL HISTORY: 83 years-old Female with acute headache. Acute headache without reported trauma TECHNIQUE: Multiple axial CT images of the head were obtained without contrast. A dose lowering tech nique was utilized adhering to the principles of ALARA. CT DOSE: 502.06 mGy.cm COMPARISON: CT 12/01/2018. FINDINGS: No acute intracranial hemorrhage, midline shift, intracranial mass, hydrocephalus, territorial ischem ia or abnormal extra-axial collection. Age-related involutional changes. Patchy white matter hypodens ities suggest chronic microvascular ischemic disease. Cerebral vascular calcifications are also noted . The calvarium is intact. Benign-appearing 2.3 cm sclerotic exostosis of the right frontal calvarium n ear the vertex. Note is made of a metopic suture. The paranasal sinuses, mastoid air cells, and middl e ear cavities are clear. IMPRESSION: No acute intracranial abnormality. The above report was generated using voice recognition software. It may contain grammatical, syntax o r spelling errors. Electronically signed by: Oscar Major M.D. 12/07/2018 8:23 PM
[2018-12-07] MEDS ORDERED: OLANZAPINE ZYDIS 5 MG ORALLY DIS. TAB PO ONE (20:35)
[2018-12-07] MEDS: PRAVASTATIN SOD 40 MG TAB PO SCH (21:09)
[2018-12-07] MEDS: HEPARIN SOD 5,000 UNIT/0.5 ML VIAL SQ SCH (21:09)
[2018-12-07] MEDS ORDERED: cloNIDine HCl 0.1 MG TAB PO ONE (23:30)
[2018-12-08] MEDS: ACETAMINOPHEN 65 ML IV PRN ×3 (00:02→16:30)
[2018-12-08] MEDS: LEVOTHYROXINE SODIUM 100 MCG TABLET PO SCH (05:47)
[2018-12-08] MEDS: HYDROCODONE/ACETAMOPHEN 5/325MG TAB PO PRN ×2 (05:48→18:40)
[2018-12-08 06:57] LABS: Basophils # (auto) 0.04 K/uL (0-0.2); Basophils % (auto) 0.6 %; Eosinophils # (auto) 0.25 K/uL (0-0.5); Eosinophils % (auto) 3.5 %; Hematocrit (blood only) 30.6 % (37-47); Hemoglobin 10.1 g/dL (12.0-16.0); Immature Granulocytes # (auto) 0.02 K/uL (0.00-0.02); Immature Granulocytes % (auto) 0.3 %; Lymphocytes # (auto) 1.89 K/uL (1.2-3.4); Lymphocytes % (auto) 26.7 %; Mean Corpuscular Volume 92.2 fL (80-100); Mean Platelet Volume 8.8 fL (7.4-10.4); Monocytes # (auto) 0.57 K/uL (0.11-0.59); Neutrophils # (auto) 4.32 K/uL (1.4-6.5); Neutrophils % (auto) 60.9 %; Platelet Count 448 K/uL (130-400); RDW Coefficient of Variation 15.6 % (11.5-14.5); RDW Standard Deviation 52.9 fL (36.4-46.3); Red Blood Count 3.32 M/uL (4.2-5.4); White Blood Count 7.09 K/uL (4.8-10.8)
[2018-12-08] MEDS: PANTOprazole 40 MG TAB PO SCH (08:42)
[2018-12-08] MEDS: DICLOFENAC SOD 1% GEL 100 GM TUBE EXT SCH ×4 (08:42→20:49)
[2018-12-08] MEDS: TIOTROPIUM BROMIDE 5 PUFF/90 MCG INH INH SCH (08:43)
[2018-12-08] MEDS: BUDESONIDE/FORMOTEROL FUMARATE 160/4.5 60 PUFFS/INHALER INH SCH ×2 (08:43→20:49)
[2018-12-08] MEDS: HEPARIN SOD 5,000 UNIT/0.5 ML VIAL SQ SCH ×2 (09:06→20:50)
--- NOTE | 2018-12-08 15:37 | Hospitalist Progress Note ---
Date of Service December 08, 2018 Assessment & Plan (1) Dementia: Supportive care, outpatient follow-up. Would be reasonable to consider adding Aricept or Namenda at this point, but will defer to outpatient PCP given this is much more a med change with chronic ramifications. (2) Altered mental status: Seems to be around baseline now per people who know her better. Continue reassurance and supportive care (3) Depression: Continue home meds (4) COPD (chronic obstructive pulmonary disease): Continue Symbicort, Spiriva, and Mucinex. No problems noted today, on room air (5) Hyperlipidemia LDL goal <70: Continue Pravachol (6) Hypothyroidism: Continue levothyroxine sodium 100 mcg every morning (7) Duodenal bulb ulcer: Pantoprazole 40 mg p.o. daily (8) Left hip pain: Severe arthritis, this will be operated on in a little over a week, it appears to be in her benefit to get this fixed as best as possible given her severe pain, and how much the pain may be driving her mental status as well. Continue current regimen for pain control, given that she does have pain in the IT band and piriformis distribution, will also add diclofenac gel and give a trial of OMT if possible to see if we can relieve some of her pain that way. (9) Pseudomonas urinary tract infection: Cultures now negative. Off antibiotics. (10) Discharge planning issues: Anticipate [facility] tomorrow (11) DVT prophylaxis: Heparin subcu Subjective Patient seen multiple times, sleeping comfortably each time. Overnight notes reviewed, input from overnight coverage greatly appreciated. No problems noted by nursing now, blood pressure much better now. Physical Exam Physical Exam: General she is sleeping comfortable no distress no focal neuro deficits. Breathing unlabored no accessory muscle use. Skin shows no rashes no pallor or icterus. Results & Data Vital Signs (Past 12 Hours) Vital Signs Temp Pulse Resp BP BP Pulse Ox 12/08/18 07:03 36.5 C 75 18 150/80 H 98 12/08/18 03:40 36.8 C 65 18 117/71 96 PG Care Time/CCT Total # of Minutes Spent Total Time Spent with Patient: Total time spent is greater than 50% in coordination of care (as documented) at patient's floor/unit and/or counseling patient: (1) Altered mental status Altered mental status type: unspecified Qualified Code(s): R41.82 - Altered mental status, unspecified (2) Depression Depression Type: unspecified Qualified Code(s): F32.9 - Major depressive disorder, single episode, unspecified (3) COPD (chronic obstructive pulmonary disease) COPD type: unspecified COPD Qualified Code(s): J44.9 - Chronic obstructive pulmonary disease, unspecified (4) Hypothyroidism Hypothyroidism type: acquired Qualified Code(s): E03.9 - Hypothyroidism, unspecified
[2018-12-08] MEDS: PRAVASTATIN SOD 40 MG TAB PO SCH (20:49)
[2018-12-09] MEDS: LEVOTHYROXINE SODIUM 100 MCG TABLET PO SCH (05:13)
[2018-12-09] MEDS: PANTOprazole 40 MG TAB PO SCH (10:07)
[2018-12-09] MEDS: BUDESONIDE/FORMOTEROL FUMARATE 160/4.5 60 PUFFS/INHALER INH SCH ×2 (10:07→20:29)
[2018-12-09] MEDS: DICLOFENAC SOD 1% GEL 100 GM TUBE EXT SCH ×4 (10:07→20:31)
[2018-12-09] MEDS: HEPARIN SOD 5,000 UNIT/0.5 ML VIAL SQ SCH ×2 (10:07→20:30)
[2018-12-09] MEDS: TIOTROPIUM BROMIDE 5 PUFF/90 MCG INH INH SCH (10:07)
[2018-12-09] MEDS: HYDROCODONE/ACETAMOPHEN 5/325MG TAB PO PRN ×3 (11:21→20:33)
[2018-12-09] MEDS ORDERED: HydrALAZINE HCL 20 MG/ML VIAL ONE (11:42)
[2018-12-09] MEDS ORDERED: HydrALAZINE HCL 20 MG/ML VIAL IV ONE (11:43)
--- NOTE | 2018-12-09 12:03 | CT Scan Report ---
CT SCAN OF THE BRAIN WITHOUT IV CONTRAST CLINICAL HISTORY: Hypertension. Slurred speech. COMPARISON STUDY: CT of the brain dated 12/07/2018. TECHNIQUE: Unenhanced axial CT scan of the brain is performed from the vertex to the skull base. A do se lowering technique was utilized adhering to the principles of ALARA. The examination is degraded b y motion artifact. The patient was scanned twice in an effort to improve image quality. CT DOSE: 1074.96 mGy.cm FINDINGS: Brain parenchyma: There are age-related involutional changes noting moderate to advanced subcortical and periventricular microangiopathic change. There is no hemorrhage, mass effect, or evidence of acu te territorial ischemia by CT criteria. Amador-white matter differentiation is preserved. No extra-axia l fluid collection is seen. Ventricles, sulci, cisterns: Prominent secondary to involutional change. Intracranial vasculature: There is atherosclerotic calcification of the cavernous carotid and vertebr al arteries. 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 The calvarium appe ars intact. Sinuses and mastoids: There is trace fluid within the sphenoid sinuses. The remaining visualized para nasal sinuses are clear. The mastoid air cells are well pneumatized. Orbits: The bony orbits are grossly intact. There are bilateral ocular lens implants. IMPRESSION: There is no hemorrhage, mass effect, or evidence of acute territorial ischemia by CT matt malone noting a motion compromised examination. Electronically signed by: Tyler Coffman M.D. 12/09/2018 12:02 PM
[2018-12-09] MEDS: CITALOPRAM 40 MG TAB PO SCH (14:09)
[2018-12-09] MEDS ORDERED: AMLODIPINE BESYLATE 5 MG TAB PO ONE (15:49)
--- NOTE | 2018-12-09 17:11 | Hospitalist Progress Note ---
Date of Service December 09, 2018 Assessment & Plan (1) Hypertensive urgency: Her symptoms seem to fit quite clearly with hypertensive urgency. She was complaining of a headache had slurred speech and had market elevations in blood pressure. CT of the head was negative for bleed, and with even a little bit of improvement in her blood pressure her symptoms resolved. No further strokes/strokelike work-up appears warranted given how clear of hypertensive urgency this was. Gave consideration to initiation of aspirin, but given this appeared to be so clearly hypertensive rather than atherosclerotic, as well as a recent and quite significant duodenal bulb ulcer requiring transfusions as well as transfer to tertiary care, risk appears to outweigh benefit. Work on better blood pressure control gradually, right now with 5 mg of amlodipine. Obviously this episode delayed getting her to [facility] today, but if she has no further hypertensive spikes/headache/slurred speech episodes, it would likely be safe to be able to get her towards rehabbing by tomorrow. (2) Dementia: Supportive care, outpatient follow-up. Would be reasonable to consider adding Aricept or Namenda at this point, but will defer to outpatient PCP given this is much more a med change with chronic ramifications. We will resume her Celexa at the daughter's request, and follow mental status, but it seems more likely that her delirium on presentation was related to fentanyl. (3) Altered mental status: More agitated today. Reassurance and supportive care. Reinitiation of Celexa. (4) Depression: Resume Celexa (5) COPD (chronic obstructive pulmonary disease): Continue Symbicort, Spiriva, and Mucinex. In spite of her other acute issues she has shown no respiratory distress (6) Hyperlipidemia LDL goal <70: Continue Pravachol (7) Hypothyroidism: Continue levothyroxine sodium 100 mcg every morning (8) Duodenal bulb ulcer: Pantoprazole 40 mg p.o. daily (9) Left hip pain: Severe arthritis, this will be operated on in a little over a week, it appears to be in her benefit to get this fixed as best as possible given her severe pain, and how much the pain may be driving her mental status as well. Continue current regimen for pain control, given that she does have pain in the IT band and piriformis distribution, continue diclofenac gel in this region. (10) Pseudomonas urinary tract infection: Cultures now negative. Off antibiotics. (11) Discharge planning issues: [facility] once hypertensive urgency has clearly stabilized, which appears to be doing. (12) DVT prophylaxis: Heparin subcu Subjective Patient seen multiple times today. This morning when she was first seen she was in no distress other than being somewhat confused and a little bit agitated. The plan was to get her to [facility] to rehab. I tried to call the daughter to update, as she was in [place] for her own appointments, was unable to reach her. Then later around 1130 I was called that the patient had garbled speech and concern of a facial droop, as well as a blood pressure of about 200/70. Immediately assessed, speaking nonsensically with slurred words. Revisited shortly after CT scan, with a dose of hydralazine blood pressure dropped to about 183/80 range, and her speech was much more clear. Revisited yet again later in the afternoon and she was resting comfortably. Upset whenever I awoke her but with no focal deficits. Case management was able to update the daughter, but I was not able to reach her on multiple phone calls. Review of Systems Review of Systems: Unobtainable due to cognitive status Physical Exam Physical Exam: Initial exam showed her to be mildly agitated but in no physical distress. No focal neurologic deficits. Speech clear. Later at the 1130/1145 evaluation she had no focal motor or sensory deficits to the best I could assess, but did have very garbled nonsensical speech. Face showed no asymmetry (nursing had concern about a left facial droop, but it appeared to be a combination of the wrinkles on the patient's skin, her dentures, and her positioning, as it would correct with volitional motor activation) muscle tone was equal throughout, reflexes were good. On revisit, speech was clear for both visits later in the afternoon. No focal neuro deficits At all times her breathing was unlabored no accessory muscle use good effort, skin showed no rashes no pallor or icterus. Results & Data Vital Signs (Past 12 Hours) Vital Signs Temp Pulse Resp BP BP Pulse Ox 12/09/18 16:52 158/83 H 12/09/18 14:40 36.8 C 91 H 22 202/93 H 100 12/09/18 07:14 36.8 C 79 21 151/75 H 96 PG Care Time/CCT Total # of Minutes Spent Total Time Spent with Patient: Total time spent is greater than 50% in coordination of care (as documented) at patient's floor/unit and/or counseling patient: (1) Depression Depression Type: unspecified Qualified Code(s): F32.9 - Major depressive disorder, single episode, unspecified (2) Hypothyroidism Hypothyroidism type: acquired Qualified Code(s): E03.9 - Hypothyroidism, unspecified (3) Altered mental status Altered mental status type: unspecified Qualified Code(s): R41.82 - Altered mental status, unspecified (4) COPD (chronic obstructive pulmonary disease) COPD type: unspecified COPD Qualified Code(s): J44.9 - Chronic obstructive pulmonary disease, unspecified
[2018-12-09] MEDS: PRAVASTATIN SOD 40 MG TAB PO SCH (20:30)
[2018-12-10] MEDS: LEVOTHYROXINE SODIUM 100 MCG TABLET PO SCH (05:42)
[2018-12-10] MEDS: CITALOPRAM 40 MG TAB PO SCH (08:08)
[2018-12-10] MEDS: PANTOprazole 40 MG TAB PO SCH (08:08)
[2018-12-10] MEDS: TIOTROPIUM BROMIDE 5 PUFF/90 MCG INH INH SCH (08:10)
[2018-12-10] MEDS: HEPARIN SOD 5,000 UNIT/0.5 ML VIAL SQ SCH (08:10)
[2018-12-10] MEDS: BUDESONIDE/FORMOTEROL FUMARATE 160/4.5 60 PUFFS/INHALER INH SCH (08:11)
[2018-12-10] MEDS: DICLOFENAC SOD 1% GEL 100 GM TUBE EXT SCH (08:13)
[2018-12-10] MEDS ORDERED: AMLODIPINE BESYLATE 5 MG TAB PO SCH (09:00)
[2018-12-10 11:55] LABS: Appearance Urine Cloudy (Clear); Bacteria Urine Automated 1+ (Negative); Bilirubin Urine Negative (Negative); Blood Urine 1+ (Negative); Cast Urine Automated 0 /lpf (0-5); Color Urine Yellow; Epithelial Cell Urine Auto 0-5 /lpf (0-5); Glucose Urine UA Negative (Negative); Ketones Urine Negative (Negative); Leukocyte Esterase Urine 3+ (Negative); Nitrite Urine Negative (Negative); Protein Urine Negative (Negative); RBC Urine Automated 0-4 /hpf (0-4); Specific Gravity Urine 1.014 (1.000-1.030); Urobilinogen Urine Negative (Negative); WBC Urine Automated >30 /hpf (0-5); pH Urine 7.5 (4.5-7.5)
--- NOTE | 2018-12-10 15:26 | Discharge Summary ---
Date of Service December 10, 2018 Admission HPI Per Admitting Provider The patient is an 83-year-old female most recently admitted to [facility] from 11/10-11/13/2018 for delirium, at that time thought to be due to a pansensitive Pseudomonas aeruginosa UTI, or side effect of Cipro. The Pseudomonas was initially treated with Cipro as an outpatient, which was stopped for the last admission, and received cefepime IV for 3 days total, with last dosing on 11/13. The patient was then seen in the ED at [facility] on 11/29/2018 for left hip pain associated with a fall that occurred just prior to arrival. The left hip had been previously fractured in 2000, and she is due for a hip replacement in a few weeks at [facility] she does complain of left hip pain with certain movements and when pressure is against when lying on it. Family reports that a few months ago, the patient was functioning independently, and since admission to [facility] in September and then recent admissions to [facility], she has become more confused, and since Sunday night, 2 nights ago, she has had visual hallucinations. Upon questioning, this would appear to be immediately traceable back to the institution of a fentanyl patch on Sunday morning. Principal Diagnosis delirium from fentanyl probable baseline dementia (although family notes baseline has fluctuated enough it's not entirely clear) hypertensive urgency Discharge Exam General she is awake pleasant no distress. HEENT normocephalic atraumatic mucous membranes are moist. Neck is supple with no C-spine tenderness and full range of motion. No cranial crepitus bruising or signs of trauma. Cardio is regular without rubs murmurs or gallops, lungs clear to auscultation bilaterally no rales rhonchi or wheezes good effort. Abdomen soft nondistended nontender no masses or organomegaly. Extremities are without cyanosis clubbing or edema. Musculoskeletal shows no gross deformities, no effusions, no bony tenderness, no joint tenderness upper lower or core. Skin she does have a small new skin tear on her right knee and a healing small abrasion on no other rashes pallor icterus or lesion. Neuro shows cranial nerves II through XII be grossly intact gross motor and sensory are intact. Mental status is pleasantly confused. Discharge Data Allergies Allergy/AdvReac Type Severity Reaction Status Date / Time bupropion [From Wellbutrin] Allergy Mild Unknown Unverified 12/01/18 17:40 hydrochlorothiazide Allergy Mild Unknown Unverified 12/01/18 17:40 [From Avalide] irbesartan [From Avalide] Allergy Mild Unknown Unverified 12/01/18 17:40 roflumilast [From Daliresp] Allergy Mild Unknown Unverified 12/01/18 17:40 denosumab [From Prolia] Allergy Unknown Verified 12/01/18 17:40 tramadol Allergy Unknown Verified 12/01/18 17:40 ciprofloxacin [From Cipro] AdvReac Unknown Unverified 12/01/18 17:40 NSAIDS (Non-Steroidal AdvReac Unknown Unverified 12/01/18 17:40 Anti-Inflamma Consultations 12/01/18 20:04 ED Decision to Admit Stat 12/01/18 21:59 Consult Case Management - Discharge Planning Routine Consult Neurology Routine Ordered Studies 12/01/18 17:07 CT cervical spine wo con Stat CT head/brain wo con Stat 12/01/18 21:11 MR brain wo con Urgent 12/07/18 19:52 CT head/brain wo con Stat 12/09/18 11:43 CT head/brain wo con Stat Hospital Course (1) Hypertensive urgency: Her symptoms seem to fit quite clearly with hypertensive urgency. She was complaining of a headache had slurred speech and had market elevations in blood pressure. CT of the head was negative for bleed, and with even a little bit of improvement in her blood pressure her symptoms resolved. Initiated amlodipine and blood pressure has improved considerably. Follow-up blood pressures as outpatient. (2) Dementia: Supportive care, outpatient follow-up. Would be reasonable to consider adding Aricept or Namenda at this point, but will defer to outpatient PCP given this is much more a med change with chronic ramifications. Reassurance and supportive care. (3) Altered mental status: Supportive care. Reassurance. Safe environment. She did have a fall prior to leaving, but other than a small skin tear on her right knee, no trauma was evident. (4) Depression: Continue Celexa (5) COPD (chronic obstructive pulmonary disease): Continue Symbicort, Spiriva, and Mucinex. In spite of her other acute issues she has shown no respiratory distress (6) Hyperlipidemia LDL goal <70: Continue Pravachol (7) Hypothyroidism: Continue levothyroxine sodium 100 mcg every morning (8) Duodenal bulb ulcer: Pantoprazole 40 mg p.o. daily (9) Left hip pain: Severe arthritis, this will be operated on in a little over a week, it appears to be in her benefit to get this fixed as best as possible given her severe pain, and how much the pain may be driving her mental status as well. Continue current regimen for pain control, given that she does have pain in the IT band and piriformis distribution, continue diclofenac gel in this region. (10) Pseudomonas urinary tract infection: Cultures now negative. Off antibiotics. Given her delirium, although she does not appear to show symptoms, we will send urine prior to discharge for completeness. (11) Discharge planning issues: [facility] today (12) DVT prophylaxis: Heparin subcu utilized while here Total Time Total Time Spent Total Time Spent (In Minutes): Greater than 30 Discharge Plan Discharge Items Patient Disposition: Transfer Long Term Fac Reason For Visit: AMS Discharge Diagnosis: delirium on dementia Condition: Good Discharge Goals: Decrease discomfort Activity: Resume your previous activity Non-emergency contact: Primary Care Provider and Surgeon Call non-emergency contact if: you have any medication questions and your symptoms worsen Follow-up/Referrals: YUNI Hoang [Primary Care Provider] - Diet: Regular Addtl Provider Instructions: delirium superimposed on dementia -appears to have been related to fentanyl patch initiated for hip pain from severe DJD -this has been stopped -would use extreme caution with all narcotics or sedating meds -tylenol and diclofenac gel have overall been affecting reasonable pain control -hip has severe DJD, ultimate plan is hip surgery, which despite her dementia, seems quite reasonable -- family aware of perioperative delirium risk and hip pain seems to significantly and adversely impact patient's quality of life Prescriptions: New diclofenac sodium [Voltaren] 1 % Gel 1 applic EXT QID Qty: 100 RF: 0 amlodipine 5 mg tablet 5 mg PO DAILY Qty: 30 RF: 0 Continued citalopram [Celexa] 40 mg Tablet 40 mg PO QAM RF: 0 pravastatin 40 mg Tablet 40 mg PO QPM RF: 0 pantoprazole 40 mg Tablet,Delayed Release (Dr/Ec) 40 mg PO BID RF: 0 Spiriva with HandiHaler 18 mcg Capsule, W/Inhalation Device 1 cap INHALATION DAILY RF: 0 Symbicort 160-4.5 mcg/actuation Hfa Aerosol Inhaler 2 puff INHALATION BID RF: 0 omega 6-yxr-kzl-fish oil [Fish Oil] 1,000 mg (120 mg-180 mg) Capsule 1 cap PO QAM RF: 0 guaifenesin [Mucinex] 600 mg Tablet Extended Release 12hr 600 mg PO BID RF: 0 acetaminophen [Tylenol Extra Strength] 500 mg Tablet 500 - 1,000 mg PO Q4 PRN (Reason: Pain) RF: 0 ergocalciferol (vitamin D2) [Vitamin D2] 50,000 unit Capsule 50,000 unit PO 2XWK RF: 0 levothyroxine 100 mcg Tablet 100 mcg PO QAM RF: 0 Discontinued oxycodone-acetaminophen [Percocet] 5-325 mg Tablet 1 tab PO Q6H PRN (Reason: Pain) RF: 0 fentanyl 12 mcg/hr Patch 72 Hour 1 patch TRANSDERMAL Q72H RF: 0 Stand-Alone Forms: [facility] Discharge Orders: Discharge Order (Routine); Ordered 12/09/18 Ordered By: Yair Altamirano Skilled Items Patient informed of condition?: Yes DNR: No Discharge Level of Care: Skilled Communicable Disease: No Discharge Prognosis: Stable Admission Data Admit Date/Time: 12/04/18 07:07 Attending Provider: Yair Altamirano Admit Provider: Marco A Gerardo Primary Care Provider: YUNI Hoang Other Providers: Marco A Gerardo ; Geovanny Love ; Kushal [place] Service: Telemetry Medical Other Interventions: Discharge Summary Assessment (RN) Last Done: 12/10/18 12:39 DC Date/Time DO NOT enter until pt leaves facility: 12/10/18 13:15
== END 2018-12-10 13:15 | DRG 884 ==
LOC: 2W 16:48 → ED 16:48 → SUATTDRO 21:10 → 2W 21:38 → SUATTDRO 12-04 07:07

== ENCOUNTER 2019-03-15 20:54 | Inpatient (IN) ==
[2019-03-15] MEDS ORDERED: methylPREDNISolone 125 MG/2 ML VIAL IV STA (21:33)
[2019-03-15] MEDS ORDERED: ALBUT/IPRATROP 3MG/0.5MG NEB 3 ML VIAL INH STA (21:33)
[2019-03-15] MEDS ORDERED: SODIUM CHLORIDE 0.9% 1000ML 1,000 ML IV SCH (21:45)
--- NOTE | 2019-03-15 22:05 | XRay Report ---
XR chest 1V portable HISTORY: 84 years-old Female Dyspnea acute shortness of breath COMPARISON: Chest radiograph 12/01/2018 TECHNIQUE: Portable AP view the chest FINDINGS: Persistent mild scattered reticular nodular opacities have slightly progressed. No pneumothorax, pleu ral effusion or overt pulmonary edema. No focal airspace consolidation. Degenerative changes of the s houlders and spine with calcified plaque of the thoracic aortic arch. Surgical clips project over the upper abdomen. IMPRESSION: Mildly progressive bilateral reticular nodular opacities, likely infectious or inflammato ry. The above report was generated using voice recognition software. It may contain grammatical, syntax o r spelling errors. Electronically signed by: Oscar Major M.D. 03/15/2019 10:03 PM
[2019-03-15 22:12] LABS: Basophils # (auto) 0.03 K/uL (0-0.2); Basophils % (auto) 0.3 %; Eosinophils # (auto) 0.13 K/uL (0-0.5); Eosinophils % (auto) 1.3 %; Hematocrit (blood only) 38.6 % (37-47); Immature Granulocytes # (auto) 0.02 K/uL (0.00-0.02); Immature Granulocytes % (auto) 0.2 %; Lymphocytes # (auto) 1.85 K/uL (1.2-3.4); Lymphocytes % (auto) 17.8 %; Mean Corpuscular Hemoglobin 31.6 pg (25-34); Mean Corpuscular Hgb Conc 33.7 g/dL (32-36); Mean Corpuscular Volume 93.7 fL (80-100); Mean Platelet Volume 8.9 fL (7.4-10.4); Monocytes # (auto) 0.61 K/uL (0.11-0.59); Monocytes % (auto) 5.9 %; Neutrophils # (auto) 7.74 K/uL (1.4-6.5); Neutrophils % (auto) 74.5 %; Platelet Count 337 K/uL (130-400); RDW Coefficient of Variation 14.3 % (11.5-14.5); RDW Standard Deviation 48.8 fL (36.4-46.3); Red Blood Count 4.12 M/uL (4.2-5.4); White Blood Count 10.38 K/uL (4.8-10.8)
[2019-03-15 22:29] LABS: Alanine Aminotransferase 17 U/L (12-78); Albumin Level 3.9 gm/dl (3.4-5.0); Aspartate Aminotransferase 20 U/L (15-37); BUN Creatinine Ratio 17.8 (10-20); Blood Urea Nitrogen 14 mg/dl (7-18); Calcium 9.3 mg/dl (8.5-10.1); Carbon Dioxide 30 mmol/L (21-32); Chloride 101 mmol/L (98-107); Est GFR (African American) 81.5; Est GFR (Non-African American) 70.3; Glucose 108 mg/dl (70-99); Magnesium 1.7 mg/dl (1.8-2.4); Potassium 3.8 mmol/L (3.5-5.1); Sodium 135 mmol/L (136-145)
[2019-03-15] MEDS ORDERED: ONDANSETRON INJ 2 MG/ML 2 ML VIAL IV STA (22:30)
[2019-03-15] MEDS ORDERED: BENZONATATE 100 MG CAPSULE PO ONE (22:30)
[2019-03-15 22:32] LABS: INR 1.1 (0.9-1.1); Partial Thromboplastin Ratio 1.1; Partial Thromboplastin Time 28.5 Seconds (21.0-31.0); Prothrombin Time 10.9 Seconds (9.0-12.0)
[2019-03-15 22:36] LABS: Alkaline Phosphatase 126 U/L (45-117); Bilirubin,Total 0.5 mg/dl (0.2-1); Total Protein 7.9 gm/dl (6.4-8.2)
[2019-03-15 22:45] LABS: Influenza A virus by PCR Neg for Influ A (Neg); Influenza B virus by PCR Neg for Influ B (Neg)
[2019-03-15] MEDS ORDERED: MAGNESIUM SULFATE / D5W 1 GM/100 ML BAG IV ONE (22:57)
[2019-03-15] MEDS ORDERED: AZITHROMYCIN 500 MG in DEXTROSE 5% 250 ML IV STA (22:59)
[2019-03-15] MEDS ORDERED: cefTRIAXone SODIUM 2,000 MG/70 ML BAG IV STA (22:59)
[2019-03-16] MEDS ORDERED: ACETAMINOPHEN 325 MG TAB PO STA (00:02)
[2019-03-16] MEDS ORDERED: ACETAMINOPHEN 325 MG TAB ONE (00:05)
--- NOTE | 2019-03-16 00:48 | Emergency Department Note ---
Entered by Sindy Garnica acting as a scribe for Mike Ngo MD History of Present Illness General Chief complaint: Cough Stated complaint: COUGH, CONGESTION, SICK TO STOMACH Time Seen by Provider: 03/15/19 21:24 Source: patient and friends History of Present Illness Onset (ago): day(s) 3 Location: chest Pain Consistency: + constant Maximum Pain Intensity: 0 Current Pain Intensity: 0 Associated symptoms: + cough and + other (cough with sputum, dark colored stool) Treatments prior to arrival: none The patient is a 84 year old female who presents to the Emergency Room with complaints of cough that began 3 days ago. She states that her symptoms have been constant over the past few days. She denies ear pain or post-nasal drip. She noticed some colored mucus that occasionally comes up with her cough. The patient currently resides at [facility], and the staff informed her friend that pneumonia was going around. She has also noticed darker colored stool lately. The patient is using her inhalers, but does not have a lung doctor here yet. She moved here permanently a year ago. She is not on any blood thinners currently. Home Medications Home Medications Medication Instructions Recorded Confirmed Type acetaminophen [Tylenol Extra 1,000 mg PO TID 03/15/19 03/15/19 History Strength] amlodipine [Norvasc] 5 mg PO DAILY 03/15/19 03/15/19 History ascorbic acid (vitamin C) [Vitamin 250 mg PO DAILY 03/15/19 03/15/19 History C] budesonide-formoterol [Symbicort] 2 puff INHALATION BID 03/15/19 03/15/19 History citalopram [Celexa] 20 mg PO DAILY 03/15/19 03/15/19 History docusate sodium 100 mg PO DAILY PRN 03/15/19 03/15/19 History levalbuterol HCl 1.25 mg INHALATION TID PRN 03/15/19 03/15/19 History levothyroxine 100 mcg PO DAILY 03/15/19 03/15/19 History loperamide [Imodium A-D] 2 mg PO UD PRN 03/15/19 03/15/19 History oxycodone [Roxicodone] 5 - 10 mg PO Q6 PRN 03/15/19 03/15/19 History pantoprazole [Protonix] 40 mg PO DAILY 03/15/19 03/15/19 History pediatric multivitamin no.136 1 tab PO DAILY 03/15/19 03/15/19 History [Children Multivitamin] pravastatin [Pravachol] 40 mg PO DAILY 03/15/19 03/15/19 History tiotropium bromide [Spiriva with 1 cap INHALATION CQWK 03/15/19 03/15/19 History HandiHaler] Allergies Allergy/AdvReac Type Severity Reaction Status Date / Time bupropion [From Wellbutrin] Allergy Mild Unknown Unverified 03/15/19 21:30 hydrochlorothiazide Allergy Mild Unknown Unverified 03/15/19 21:30 [From Avalide] irbesartan [From Avalide] Allergy Mild Unknown Unverified 03/15/19 21:30 roflumilast [From Daliresp] Allergy Mild Unknown Unverified 03/15/19 21:30 denosumab [From Prolia] Allergy Unknown Verified 03/15/19 21:30 tramadol Allergy Unknown Verified 03/15/19 21:30 ciprofloxacin [From Cipro] AdvReac Unknown Unverified 03/15/19 21:30 fentanyl [From Duragesic] AdvReac Hallucinati Verified 03/15/19 21:31 ng NSAIDS (Non-Steroidal AdvReac Unknown Unverified 03/15/19 21:30 Anti-Inflamma Past Med/Surg History Medical History Anxiety COPD (chronic obstructive pulmonary disease) Hypertension Hypothyroidism Osteopenia Surgical History S/P AAA (abdominal aortic aneurysm) repair Family History Father , in his 70s of an VT. Hypertension Myocardial infarction Mother , in her 70s after a fall No problems noted. 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 Feels Safe at Home: Yes Safety Concerns: Feels Safe At This Time Smoking Status: Former smoker Hx Alcohol Use: No Hx Substance Use: No Review of Systems See HPI for pertinent positives & negatives. and A total of 10 systems reviewed and were otherwise negative Physical Exam Vital Signs Vital Signs - 24 hr 03/15/19 20:57 03/15/19 21:47 03/15/19 22:12 Temperature 36.8 C Temperature Source Oral Sepsis Recent Fever Within 48 Hours No Sepsis Action Taken by Nursing No Action Required Pulse Rate 116 H 126 H Pulse Rate [Right Finger] 105 H Pulse Rate from SpO2 Sensor 127 H Respiratory Rate 22 16 29 H Respiratory Effort / Characteristics Non-Labored Blood Pressure 205/84 H 176/89 H Blood Pressure [Right Arm] Blood Pressure Mean 124 118 Blood Pressure Mean [Right Arm] Blood Pressure Position Sitting Pulse Oximetry 97 94 94 Oxygen Delivery Method Room Air Room Air Room Air 03/15/19 22:29 03/15/19 22:30 03/15/19 22:40 Temperature Temperature Source Sepsis Recent Fever Within 48 Hours Sepsis Action Taken by Nursing Pulse Rate 124 H 126 H 125 H Pulse Rate [Right Finger] Pulse Rate from SpO2 Sensor 124 H 126 H 125 H Respiratory Rate 21 24 25 H Respiratory Effort / Characteristics Blood Pressure 167/83 H Blood Pressure [Right Arm] Blood Pressure Mean 111 Blood Pressure Mean [Right Arm] Blood Pressure Position Pulse Oximetry 94 95 94 Oxygen Delivery Method Room Air Room Air Room Air 03/15/19 23:00 03/15/19 23:23 03/15/19 23:30 Temperature Temperature Source Sepsis Recent Fever Within 48 Hours Sepsis Action Taken by Nursing Pulse Rate 117 H 117 H Pulse Rate [Right Finger] 117 H Pulse Rate from SpO2 Sensor 117 H 117 H Respiratory Rate 24 20 Respiratory Effort / Characteristics Blood Pressure 148/68 H 133/65 Blood Pressure [Right Arm] 148/68 H Blood Pressure Mean 94 87 Blood Pressure Mean [Right Arm] 94 Blood Pressure Position Pulse Oximetry 90 91 Oxygen Delivery Method Room Air Room Air Room Air 03/15/19 23:40 03/15/19 23:50 03/16/19 00:00 Temperature Temperature Source Sepsis Recent Fever Within 48 Hours Sepsis Action Taken by Nursing Pulse Rate 116 H 114 H 116 H Pulse Rate [Right Finger] Pulse Rate from SpO2 Sensor 116 H 114 H 116 H Respiratory Rate 22 23 24 Respiratory Effort / Characteristics Blood Pressure Blood Pressure [Right Arm] Blood Pressure Mean Blood Pressure Mean [Right Arm] Blood Pressure Position Pulse Oximetry 90 90 Oxygen Delivery Method Room Air Room Air Room Air 03/16/19 00:01 Temperature Temperature Source Sepsis Recent Fever Within 48 Hours Sepsis Action Taken by Nursing Pulse Rate 115 H Pulse Rate [Right Finger] Pulse Rate from SpO2 Sensor 115 H Respiratory Rate 20 Respiratory Effort / Characteristics Blood Pressure 131/77 Blood Pressure [Right Arm] Blood Pressure Mean 95 Blood Pressure Mean [Right Arm] Blood Pressure Position Pulse Oximetry 90 Oxygen Delivery Method Room Air GENERAL: Wearing glasses, well appearing, well nourished, NAD, non-toxic. EYE EXAM: Normal conjunctiva. PERRL, no anisocoria and EOM's grossly intact w/o pain. OROPHARYNX: Moist mucous membranes. False dentures in place. NECK: Supple, no nuchal rigidity, no adenopathy, non-tender. No signs of meningismus. LUNGS: Scant wheezes. Normal chest wall mechanics. Not tachypnic. HEART: Tachycardic and regular, no MRG. ABDOMEN: Abdomen soft, non-tender, normo-active bowel sounds, no masses, no rebound or guarding. BACK: No CVA TTP. SKIN: No rashes and no bruising. UPPER EXTREMITIES: Upper extremities are grossly normal. LOWER EXTREMITIES: No pitting edema. No calf pain. NEURO EXAM: A&O x3, cranial nerves II-XII grossly intact, normal speech, moves all 4 extremities on command w/o issue. Course 2132: Past medical records reviewed. The patient was evaluated in room C01. A complete history and physical exam was performed. 2309: I discussed the patient's results with her. She agreed to staying in the hospital for further evaluation. The patient reports she should not receive Aspirin due to her history of GI bleeds. 2315: I spoke to Dr. Ge, [facility] hospitalist, who agreed to take over care of the patient. Administered Medications Amlodipine Besylate (Norvasc) 5 mg PO DAILY [facility] Stop: 04/15/19 08:59 Last Admin: 03/16/19 09:07 Dose: 5 mg Documented by: [id number] Ascorbic Acid (Vitamin C) 250 mg PO DAILY [facility] Stop: 04/15/19 08:59 Last Admin: 03/16/19 09:09 Dose: 250 mg Documented by: [id number] Budesonide/Formoterol Fumarate (Symbicort 160mcg/4.5mcg) 2 puffs INH BID [facility] Stop: 04/15/19 08:59 Last Admin: 03/16/19 09:08 Dose: 2 puffs Documented by: [id number] Citalopram Hydrobromide (Celexa) 20 mg PO DAILY [facility] Stop: 04/15/19 08:59 Last Admin: 03/16/19 09:07 Dose: 20 mg Documented by: [id number] Enoxaparin Sodium (Lovenox) 40 mg SQ Q24H [facility] Stop: 04/15/19 07:59 Last Admin: 03/16/19 09:07 Dose: 40 mg Documented by: [id number] Levothyroxine Sodium (Synthroid) 100 mcg PO DAILY [facility] Stop: 04/15/19 08:59 Last Admin: 03/16/19 09:09 Dose: 100 mcg Documented by: [id number] Pravastatin Sodium (Pravachol) 40 mg PO DAILY [facility] Stop: 04/15/19 08:59 Last Admin: 03/16/19 09:07 Dose: 40 mg Documented by: [id number] Tiotropium [place] (Spiriva) 1 puffs INH DAILY [facility] Stop: 04/15/19 08:59 Last Admin: 03/16/19 09:08 Dose: 1 puffs Documented by: [id number] Discontinued Medications Acetaminophen (Tylenol) 650 mg PO NOW STA Stop: 03/16/19 00:03 Last Admin: 03/16/19 00:07 Dose: 650 mg Documented by: [id number] Acetaminophen (Tylenol) Confirm Administered Dose 650 mg .ROUTE .STK-MED ONE Stop: 03/16/19 00:06 Last Admin: 03/16/19 00:14 Dose: Not Given Documented by: [id number] Albuterol (Duoneb) 6 ml INH NOW STA Stop: 03/15/19 21:34 Last Admin: 03/15/19 21:45 Dose: 6 ml Documented by: [id number] Benzonatate (Tessalon Perle) 100 mg PO NOW ONE Stop: 03/15/19 22:31 Last Admin: 03/15/19 22:46 Dose: 100 mg Documented by: [id number] Sodium Chloride (Nss 1000ml) 1,000 mls @ 999 mls/hr IV .Q1H1M [facility] Stop: 03/15/19 22:45 Last Infusion: 03/15/19 22:51 Dose: 0 mls/hr Documented by: [id number] Admin: 03/15/19 22:09 Dose: 999 mls/hr Documented by: [id number] Magnesium Sulfate/Dextrose (Magnesium Sulfate / D5w) 1 gm in 100 mls @ 100 mls/hr IV ONE ONE Stop: 03/15/19 23:56 Last Infusion: 03/16/19 00:41 Dose: 0 mls/hr Documented by: [id number] Admin: 03/15/19 23:41 Dose: 100 mls/hr Documented by: [id number] Ceftriaxone Sodium (Rocephin) 2,000 mg in 70 mls @ 140 mls/hr IV NOW STA Stop: 03/15/19 23:28 Last Infusion: 03/15/19 23:44 Dose: 0 mls/hr Documented by: [id number] Admin: 03/15/19 23:19 Dose: 140 mls/hr Documented by: [id number] Azithromycin 500 mg/ Dextrose 255 mls @ 127.5 mls/hr IV NOW STA Stop: 03/16/19 00:58 Last Infusion: 03/16/19 02:03 Dose: 0 mls/hr Documented by: [id number] Admin: 03/16/19 00:03 Dose: 127.5 mls/hr Documented by: [id number] Methylprednisolone 40 mg/ (Syringe) 0.64 mls @ 1.5 mls/min IV Q6H [facility] Stop: 04/15/19 00:03 Last Admin: 03/16/19 17:37 Dose: Not Given Documented by: [id number] Admin: 03/16/19 09:27 Dose: 1.5 mls/min Documented by: [id number] Admin: 03/16/19 04:14 Dose: 1.5 mls/min Documented by: [id number] Methylprednisolone (Solumedrol) 60 mg IV NOW STA Stop: 03/15/19 21:34 Last Admin: 03/15/19 22:09 Dose: 60 mg Documented by: [id number] Ondansetron HCl (Zofran) 4 mg IV NOW STA Stop: 03/15/19 22:31 Last Admin: 03/15/19 22:45 Dose: 4 mg Documented by: [id number] Pantoprazole Sodium (Protonix) 40 mg PO DAILY [facility] Stop: 04/15/19 08:59 Last Admin: 03/16/19 09:06 Dose: 40 mg Documented by: [id number] Medical Decision Making Differential Diagnosis Differential diagnosis includes: infections, reactive airway disease, pneumonia, pneumothorax, COPD, CHF, cardiac ischemia, pulmonary embolism, musculoskeletal, gastrointestinal, as well as others were entertained. Medical Records Attestation: I reviewed the patient's medical records. The patient has a past medical history of dementia, hypertension, COPD, HLD, hyperthyroidism, and depression. Home Medications Current Medication List: was personally reviewed by me Laboratory Data Attestation: I reviewed the patient's lab results. Result diagrams: 03/16/19 05:54 03/16/19 05:54 Lab Results 03/15/19 03/15/19 03/15/19 Range/Units 21:51 21:51 21:51 WBC 10.38 (4.8-10.8) K/uL RBC 4.12 L (4.2-5.4) M/uL Hgb 13.0 (12.0-16.0) g/dL Hct 38.6 (37-47) % MCV 93.7 (80-100) fL MCH 31.6 (25-34) pg MCHC 33.7 (32-36) g/dL RDW Std Deviation 48.8 H (36.4-46.3) fL RDW Coeff of Radhika 14.3 (11.5-14.5) % Plt Count 337 (130-400) K/uL MPV 8.9 (7.4-10.4) fL Immature Gran % (Auto) 0.2 % Neut % (Auto) 74.5 % Lymph % (Auto) 17.8 % Dickenson % (Auto) 5.9 % Eos % (Auto) 1.3 % Baso % (Auto) 0.3 % Immature Gran # (Auto) 0.02 (0.00-0.02) K/uL Neut # (Auto) 7.74 H (1.4-6.5) K/uL Lymph # (Auto) 1.85 (1.2-3.4) K/uL Dickenson # (Auto) 0.61 H (0.11-0.59) K/uL Eos # (Auto) 0.13 (0-0.5) K/uL Baso # (Auto) 0.03 (0-0.2) K/uL PT 10.9 (9.0-12.0) Seconds INR 1.1 (0.9-1.1) APTT 28.5 (21.0-31.0) Seconds PTT Ratio 1.1 Sodium 135 L (136-145) mmol/L Potassium 3.8 (3.5-5.1) mmol/L Chloride 101 (98-107) mmol/L Carbon Dioxide 30 (21-32) mmol/L Anion Gap 4.0 (3-11) BUN 14 (7-18) mg/dl Creatinine 0.78 (0.6-1.2) mg/dl Est Cr Clr Drug Dosing Not Reportable Est GFR ( Amer) 81.5 Est GFR (Non-Af Amer) 70.3 BUN/Creatinine Ratio 17.8 (10-20) Glucose 108 H (70-99) mg/dl Calcium 9.3 (8.5-10.1) mg/dl Magnesium 1.7 L (1.8-2.4) mg/dl Total Bilirubin 0.5 (0.2-1) mg/dl AST 20 (15-37) U/L ALT 17 (12-78) U/L Alkaline Phosphatase 126 H (45-117) U/L Troponin I 0.140 H* (0-0.045) ng/ml Total Protein 7.9 (6.4-8.2) gm/dl Albumin 3.9 (3.4-5.0) gm/dl Globulin 4.0 (2.5-4.0) gm/dl Albumin/Globulin Ratio 1.0 (0.9-2) Influenza Type A (PCR) (Neg) Influenza Type B (PCR) (Neg) 03/15/19 Range/Units 22:00 WBC (4.8-10.8) K/uL RBC (4.2-5.4) M/uL Hgb (12.0-16.0) g/dL Hct (37-47) % MCV (80-100) fL MCH (25-34) pg MCHC (32-36) g/dL RDW Std Deviation (36.4-46.3) fL RDW Coeff of Radhika (11.5-14.5) % Plt Count (130-400) K/uL MPV (7.4-10.4) fL Immature Gran % (Auto) % Neut % (Auto) % Lymph % (Auto) % Dickenson % (Auto) % Eos % (Auto) % Baso % (Auto) % Immature Gran # (Auto) (0.00-0.02) K/uL Neut # (Auto) (1.4-6.5) K/uL Lymph # (Auto) (1.2-3.4) K/uL Dickenson # (Auto) (0.11-0.59) K/uL Eos # (Auto) (0-0.5) K/uL Baso # (Auto) (0-0.2) K/uL PT (9.0-12.0) Seconds INR (0.9-1.1) APTT (21.0-31.0) Seconds PTT Ratio Sodium (136-145) mmol/L Potassium (3.5-5.1) mmol/L Chloride (98-107) mmol/L Carbon Dioxide (21-32) mmol/L Anion Gap (3-11) BUN (7-18) mg/dl Creatinine (0.6-1.2) mg/dl Est Cr Clr Drug Dosing Est GFR ( Amer) Est GFR (Non-Af Amer) BUN/Creatinine Ratio (10-20) Glucose (70-99) mg/dl Calcium (8.5-10.1) mg/dl Magnesium (1.8-2.4) mg/dl Total Bilirubin (0.2-1) mg/dl AST (15-37) U/L ALT (12-78) U/L Alkaline Phosphatase (45-117) U/L Troponin I (0-0.045) ng/ml Total Protein (6.4-8.2) gm/dl Albumin (3.4-5.0) gm/dl Globulin (2.5-4.0) gm/dl Albumin/Globulin Ratio (0.9-2) Influenza Type A (PCR) Neg for Influ A (Neg) Influenza Type B (PCR) Neg for Influ B (Neg) ECG Data Attestation: I personally reviewed and interpreted this ECG as follows: Indication: other (cough) Rate (beats per minute): 116 Rhythm: sinus tachycardia Findings: + other (Normal interval and axis. ) and + Q waves (in lead 3); no ST depression and no ST elevation Blood Pressure Blood Pressure Findings: Elevated blood pressure Blood Pressure Disposition: further management by hospitalist ROQUE Jenkins The patient is a 84 year old female who presents to the Emergency Room with complaints of cough that began 3 days ago. Patient was seen and evaluated the bedside. The patient was presented with productive cough. Patient does have known history of COPD. The patient did have blood work completed chest x-ray shows likely infectious pneumonia. The patient still has elevated heart rate which might be somewhat contributory to dehydration as well as the fact that she did receive DuoNeb's. Patient also did receive methylprednisolone. The patient was covered with inbox for pneumonia given that she is in a personal custodial. The patient's EKG does not appear ischemic. The patient's troponin is detectable. I did discuss full dose aspirin with the patient states that she avoids this given the prior history of a gastric ulcer. We will avoid at this time as the patient has no chest pains. We will continue to monitor and trend. But this is more related to an infection in the patient's shortness of breath. I did consider the possibility of PE but again believe this to be less likely as the patient does not have any evidence of right axis deviation has had productive cough and has a likely source and I believe these are all contributing factors. I did speak the on-call hospitalist agreed to further evaluate treat the patient. Patient was admitted to the medicine service. Impression & Plan Pneumonia, Dehydration, COPD exacerbation, Elevated troponin Discharge Plan Visit Data *Final* Discharge Date/Time: 03/16/19 00:40 Chief Complaint: Cough Stated Complaint: COUGH, CONGESTION, SICK TO STOMACH ED Provider: Mike Ngo Discharge Problem: Pneumonia, Dehydration, COPD exacerbation, Elevated troponin Patient Disposition: Admitted As Inpatient Discharge Instructions Interventions: ED Discharge Assessment Last Done: 03/16/19 00:40 Discharge Problem: Pneumonia Qualifiers: Pneumonia type: due to unspecified organism Laterality: unspecified laterality Lung location: unspecified part of lung Qualified Code(s): J18.9 - Pneumonia, unspecified organism The scribe's documentation has been prepared under my direction and personally r eviewed by me in its entirety. I confirm that the note above accurately reflects all work, treatment, procedures, and medical decision making performed by me.
[2019-03-16] MEDS ORDERED: ACETAMINOPHEN 325 MG TAB PO PRN (01:16)
[2019-03-16] MEDS ORDERED: IPRATROPIUM BROMIDE NEB SOLN 0.02% 2.5 ML VIAL INH PRN (01:16)
[2019-03-16] MEDS ORDERED: OXYCODONE/ACETAMINOPHEN 10-325 TAB PO PRN (01:16)
[2019-03-16] MEDS ORDERED: XOPENEX/ATROVENT 1.25mg/0.5MG NEB COMBO NEB PRN (01:16)
[2019-03-16] MEDS ORDERED: LEVALBUTEROL 1.25MG/0.5ML NEB INH PRN (01:16)
[2019-03-16] MEDS ORDERED: OXYCODONE/ACETAMINOPHEN 5mg/325mg TAB PO PRN (01:16)
[2019-03-16] MEDS ORDERED: ONDANSETRON INJ 2 MG/ML 2 ML VIAL IV PRN (01:16)
--- NOTE | 2019-03-16 01:53 | History & Physical Report ---
Date of Service March 16, 2019 Assessment & Plan (1) Pneumonia: Admit tele IV Rocephin IV azithromycin prn nebs (Xopenex and Atrovent) Supplemental oxygen as needed. DVT prophylaxis = SCDs and Lovenox. (2) COPD exacerbation: IV Solu Medrol nebs. (3) Elevated troponin: Suspect demand ischemia Will trend trops She had NO chest pain. (4) Dementia: Seems to be mild She does not take anything for this. (5) Hyperlipidemia LDL goal <70: Continue pravastatin (6) Hypothyroidism: Continue Synthroid (7) Hypertension: Continue amlodipine History of Present Illness 84 y/o female presented to the ED with a 3 day history of productive cough (green colored mucus). + fatigue. No SOB, chest pain, N/V/D or anorexia. Patient resides at [facility] and tells me that "pneumonia has been going around". . Primary Care Provider: [facility] Allergies Allergy/AdvReac Type Severity Reaction Status Date / Time bupropion [From Wellbutrin] Allergy Mild Unknown Unverified 04/05/19 17:02 hydrochlorothiazide Allergy Mild Unknown Unverified 04/05/19 17:02 [From Avalide] irbesartan [From Avalide] Allergy Mild Unknown Unverified 04/05/19 17:02 roflumilast [From Daliresp] Allergy Mild Unknown Unverified 04/05/19 17:02 denosumab [From Prolia] Allergy Unknown Verified 04/05/19 17:02 tramadol Allergy Unknown Verified 04/05/19 17:02 ciprofloxacin [From Cipro] AdvReac Unknown Unverified 04/05/19 17:02 fentanyl [From Duragesic] AdvReac Hallucinati Verified 04/05/19 17:02 ng NSAIDS (Non-Steroidal AdvReac Unknown Unverified 04/05/19 17:02 Anti-Inflamma Home Medications Home Medications Medication Instructions Recorded Confirmed Type Children Multivitamin 1 tab PO DAILY 03/15/19 04/05/19 History Spiriva with HandiHaler 1 cap INHALATION CQWK 03/15/19 04/05/19 History Symbicort 2 puff INHALATION BID 03/15/19 04/05/19 History acetaminophen [Tylenol Extra 1,000 mg PO TID 03/15/19 04/05/19 History Strength] amlodipine [Norvasc] 5 mg PO DAILY 03/15/19 04/05/19 History ascorbic acid (vitamin C) [Vitamin 250 mg PO DAILY 03/15/19 04/05/19 History C] citalopram [Celexa] 20 mg PO DAILY 03/15/19 04/05/19 History docusate sodium 100 mg PO DAILY PRN 03/15/19 04/05/19 History levalbuterol HCl 1.25 mg INHALATION Q8 PRN 03/15/19 04/05/19 History levothyroxine 100 mcg PO DAILY 03/15/19 04/05/19 History loperamide [Imodium A-D] 2 mg PO UD PRN 03/15/19 04/05/19 History pantoprazole [Protonix] 40 mg PO DAILY 03/15/19 04/05/19 History pravastatin [Pravachol] 40 mg PO DAILY 03/15/19 04/05/19 History guaifenesin 600 mg PO BID PRN #30 tab 03/18/19 04/05/19 Rx oxycodone 5 - 10 mg PO Q4H PRN #14 tab 03/20/19 04/05/19 Rx Past Med/Surg History Medical History Anxiety COPD (chronic obstructive pulmonary disease) Hypertension Hypothyroidism Osteopenia Surgical History S/P AAA (abdominal aortic aneurysm) repair Family History Father , in his 70s of an AK. Hypertension Myocardial infarction Mother , in her 70s after a fall No problems noted. 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 Feels Safe at Home: Yes Smoking Status: Former smoker Second Hand Exposure: No ; Hx Alcohol Use: No Hx Substance Use: No Review of Systems Review of Systems: All systems reviewed & are unremarkable except as noted in HPI & below Physical Exam Physical Exam: General- adult female, NAD Head- atraumatic Eyes- PERRL, EOMI, anicteric ENT- oropharynx clear Neck- supple, no JVD, no adenopathy, no thyromegaly. Lungs- Few scattered rhonchi, otherwise clear. Heart- regular rhythm; no murmur, no gallop, no rub appreciated Abdomen- normal bowel sounds, soft, nontender. Extremities- no pretibial edema, no calf tenderness; peripheral pulses intact Neuro- alert, oriented x 3; PERRL, EOMI. health spa manager II-XII grossly intact, non-focal. Skin- warm & dry Results & Data Vital Signs (Past 12 Hours) Vital Signs Temp Pulse Pulse Resp BP BP Pulse Ox 03/16/19 00:30 105 H 19 106/62 93 03/16/19 00:20 109 H 21 93 03/16/19 00:10 113 H 22 91 03/16/19 00:01 115 H 20 131/77 90 03/16/19 00:00 116 H 24 03/15/19 23:50 114 H 23 90 03/15/19 23:40 116 H 22 90 03/15/19 23:30 117 H 20 133/65 91 03/15/19 23:23 117 H 117 H 24 148/68 H 90 03/15/19 23:00 148/68 H 03/15/19 22:40 125 H 25 H 94 03/15/19 22:30 126 H 24 167/83 H 95 03/15/19 22:29 124 H 21 94 03/15/19 22:12 126 H 29 H 176/89 H 94 03/15/19 21:47 105 H 16 94 03/15/19 20:57 36.8 C 116 H 22 205/84 H 97 Laboratory Results Laboratory Results WBC 10.38 K/uL (4.8-10.8) 03/15/19 21:51 RBC 4.12 M/uL (4.2-5.4) L 03/15/19 21:51 Hgb 13.0 g/dL (12.0-16.0) 03/15/19 21:51 Hct 38.6 % (37-47) 03/15/19 21:51 MCV 93.7 fL (80-100) 03/15/19 21:51 MCH 31.6 pg (25-34) 03/15/19 21:51 MCHC 33.7 g/dL (32-36) 03/15/19 21:51 RDW Std Deviation 48.8 fL (36.4-46.3) H 03/15/19 21:51 RDW Coeff of Radhika 14.3 % (11.5-14.5) 03/15/19 21:51 Plt Count 337 K/uL (130-400) 03/15/19 21:51 MPV 8.9 fL (7.4-10.4) 03/15/19 21:51 Immature Gran % (Auto) 0.2 % 03/15/19 21:51 Neut % (Auto) 74.5 % 03/15/19 21:51 Lymph % (Auto) 17.8 % 03/15/19 21:51 Beadle % (Auto) 5.9 % 03/15/19 21:51 Eos % (Auto) 1.3 % 03/15/19 21:51 Baso % (Auto) 0.3 % 03/15/19 21:51 Immature Gran # (Auto) 0.02 K/uL (0.00-0.02) 03/15/19 21:51 Neut # (Auto) 7.74 K/uL (1.4-6.5) H 03/15/19 21:51 Lymph # (Auto) 1.85 K/uL (1.2-3.4) 03/15/19 21:51 Beadle # (Auto) 0.61 K/uL (0.11-0.59) H 03/15/19 21:51 Eos # (Auto) 0.13 K/uL (0-0.5) 03/15/19 21:51 Baso # (Auto) 0.03 K/uL (0-0.2) 03/15/19 21:51 PT 10.9 Seconds (9.0-12.0) 03/15/19 21:51 INR 1.1 (0.9-1.1) 03/15/19 21:51 APTT 28.5 Seconds (21.0-31.0) 03/15/19 21:51 PTT Ratio 1.1 03/15/19 21:51 Sodium 135 mmol/L (136-145) L 03/15/19 21:51 Potassium 3.8 mmol/L (3.5-5.1) 03/15/19 21:51 Chloride 101 mmol/L (98-107) 03/15/19 21:51 Carbon Dioxide 30 mmol/L (21-32) 03/15/19 21:51 Anion Gap 4.0 (3-11) 03/15/19 21:51 BUN 14 mg/dl (7-18) 03/15/19 21:51 Creatinine 0.78 mg/dl (0.6-1.2) 03/15/19 21:51 Est Cr Clr Drug Dosing Not Reportable 03/15/19 21:51 Est GFR ( Amer) 81.5 03/15/19 21:51 Est GFR (Non-Af Amer) 70.3 03/15/19 21:51 BUN/Creatinine Ratio 17.8 (10-20) 03/15/19 21:51 Glucose 108 mg/dl (70-99) H 03/15/19 21:51 Calcium 9.3 mg/dl (8.5-10.1) 03/15/19 21:51 Magnesium 1.7 mg/dl (1.8-2.4) L 03/15/19 21:51 Total Bilirubin 0.5 mg/dl (0.2-1) 03/15/19 21:51 AST 20 U/L (15-37) 03/15/19 21:51 ALT 17 U/L (12-78) 03/15/19 21:51 Alkaline Phosphatase 126 U/L (45-117) H 03/15/19 21:51 Troponin I 0.140 ng/ml (0-0.045) H* 03/15/19 21:51 Total Protein 7.9 gm/dl (6.4-8.2) 03/15/19 21:51 Albumin 3.9 gm/dl (3.4-5.0) 03/15/19 21:51 Globulin 4.0 gm/dl (2.5-4.0) 03/15/19 21:51 Albumin/Globulin Ratio 1.0 (0.9-2) 03/15/19 21:51 Influenza Type A (PCR) Neg for Influ A (Neg) 03/15/19 22:00 Influenza Type B (PCR) Neg for Influ B (Neg) 03/15/19 22:00 Diagnostic Findings [place], [place] [phone] XRay Report Patient: Danielle WANG Date: 03/15/19 MR#: [id number]: [address] Acct ID:[id number]: SRINIVASAN PEREZ Date: 6City Zip: [place] [address] Age: 84Location: ED Sex: F Room/Bed: Att Phy:Diagnosis: COUGH, CONGESTION, SICK TO STOMACH Becky Phy: Srinivasan Perez,PCHService Date: 03/15/19 Fam Phy:Interpreting Phy: aPblo Major Admit Phy: Ordering Phy: Mike Ngo M.D. cc: ~ XR chest 1V portable HISTORY: 84 years-old Female Dyspnea acute shortness of breath COMPARISON: Chest radiograph 12/01/2018 TECHNIQUE: Portable AP view the chest FINDINGS: Persistent mild scattered reticular nodular opacities have slightly progressed. No pneumothorax, pleural effusion or overt pulmonary edema. No focal airspace consolidation. Degenerative changes of the shoulders and spine with calcified plaque of the thoracic aortic arch. Surgical clips project over the upper abdomen. IMPRESSION: Mildly progressive bilateral reticular nodular opacities, likely infectious or inflammatory. The above report was generated using voice recognition software. It may contain grammatical, syntax or spelling errors. Electronically signed by: Oscar Major M.D. 03/15/2019 10:03 PM Dictated: 03/15/192200 Transcribed: 03/15/192200 Code Status & VTE Plan VTE Prophylaxis Plan VTE Prophylaxis will be ordered: Yes PG Care Time/CCT Total # of Minutes Spent Total Time Spent: 60 Total Time Spent with Patient: Total time spent is greater than 50% in coordination of care (as documented) at patient's floor/unit and/or counseling patient: (1) Hypothyroidism Hypothyroidism type: acquired Qualified Code(s): E03.9 - Hypothyroidism, unspecified (2) Hypertension Hypertension type: essential hypertension Qualified Code(s): I10 - Essential (primary) hypertension (3) Pneumonia Laterality: unspecified laterality Lung location: unspecified part of lung Pneumonia type: due to unspecified organism Qualified Code(s): J18.9 - Pneumon ia, unspecified organism
[2019-03-16] MEDS: methylPREDNISolone 40 MG in SYRINGE 0 ML IV SCH ×4 (04:14→20:35)
[2019-03-16 06:14] LABS: Hematocrit (blood only) 34.7 % (37-47); Hemoglobin 11.3 g/dL (12.0-16.0); Mean Corpuscular Hemoglobin 30.5 pg (25-34); Mean Corpuscular Hgb Conc 32.6 g/dL (32-36); Mean Corpuscular Volume 93.5 fL (80-100); Mean Platelet Volume 9.1 fL (7.4-10.4); Platelet Count 341 K/uL (130-400); RDW Coefficient of Variation 14.4 % (11.5-14.5); RDW Standard Deviation 49.4 fL (36.4-46.3); Red Blood Count 3.71 M/uL (4.2-5.4); White Blood Count 10.82 K/uL (4.8-10.8)
[2019-03-16 06:52] LABS: BUN Creatinine Ratio 15.1 (10-20); Calcium 9.1 mg/dl (8.5-10.1); Creatinine Clr Calc Pharmacy 43.1 ml/min; Est GFR (African American) 81.5; Est GFR (Non-African American) 70.3; Troponin I 0.105 ng/ml (0-0.045)
[2019-03-16 07:27] LABS: Potassium 4.6 mmol/L (3.5-5.1)
[2019-03-16] MEDS ORDERED: PANTOprazole 40 MG TAB PO SCH (09:00)
[2019-03-16] MEDS: PRAVASTATIN SOD 40 MG TAB PO SCH (09:07)
[2019-03-16] MEDS: ENOXAPARIN INJ 40 MG/0.4 ML SYR SQ SCH (09:07)
[2019-03-16] MEDS: CITALOPRAM 20 MG TAB PO SCH (09:07)
[2019-03-16] MEDS: AMLODIPINE BESYLATE 5 MG TAB PO SCH (09:07)
[2019-03-16] MEDS: TIOTROPIUM BROMIDE 5 PUFF/90 MCG INH INH SCH (09:08)
[2019-03-16] MEDS: BUDESONIDE/FORMOTEROL FUMARATE 160/4.5 60 PUFFS/INHALER INH SCH ×2 (09:08→20:36)
[2019-03-16] MEDS: LEVOTHYROXINE SODIUM 100 MCG TABLET PO SCH (09:09)
[2019-03-16] MEDS: ASCORBIC ACID 500 MG TAB PO SCH (09:09)
--- NOTE | 2019-03-16 16:21 | Hospitalist Progress Note ---
Date of Service March 16, 2019 Assessment & Plan (1) Pneumonia: Atypical appearance on CXR but with cough, malaise, increased sputum production, mild respiratory insufficiency with POx 90% on RA on admission -continue IV Rocephin and convert to po azithromycin-would complete 5 day course of each -continue prn nebs (Xopenex and Atrovent) Supplemental oxygen as needed. -would follow CXR to resolution of reticulonodular opacities and consider getting CT chest in 4-6 weeks (2) COPD exacerbation: Improved, remains with diffuse exp wheezes. -continue IV Solu Medrol but decrease down to 40mg IV bid given h/o severe duodenal PUD -continue nebs, continue SPiriva and Symbicort (3) Elevated troponin: Mild increase and then trended downward from 0.14/0.105 No chest pain, ECG normal Suspect demand ischemia She had NO chest pain. -check ECHO for WMAs (4) Dementia: Seems to be mild She does not take anything for this. (5) Hyperlipidemia LDL goal <70: Continue pravastatin (6) Hypothyroidism: Continue Synthroid TSH normal in November 2018 (7) Hypertension: BPs were high on admission and now good. -Continue amlodipine (8) Peptic ulcer disease: h/o severe GI bleed with hemorrhagic shock in 09/2018 -increase PPI to bid at least while on steroids -taper off steroids quickly -avoid NSAIDs, ASA (9) Depression: continue Celexa (10) Murmur, cardiac: sounds like MR -check ECHO as above for elevated troponin (11) DVT prophylaxis: Lovenox SQ Dispo-remain on med-tele but is rapidly improving and already walking the halls and not requiring O2, feeling better. Possible dc to home on Sunday if continues to improve Subjective Feeling better today, less SOB, cough is improved. Is coughing up sputum. No fevers/chills. Ambulated around the halls two times today but felt tired afterwards. Is weaned off O2. No diarrhea, no abd pain, no chest pain. Tele with NSR, rates 80-90s Review of Systems Review of Systems: All systems reviewed & are unremarkable except as noted in HPI & below Physical Exam Constitutional: + thin; no acute distress Eyes: PERRL, conjunctivae normal, anicteric sclerae ENMT: external ear and nose normal, oropharynx normal Neck: trachea midline, no thyromegaly Respiratory: normal respiratory effort Auscultation: + wheezes (diffusely, on expiration, bilaterally); no crackles and no rhonchi Cardiovascular: RRR, no murmur, no edema Gastrointestinal (Abdomen): normal bowel sounds, soft, nontender, no h epatosplenomegaly Musculoskeletal: Extremities: extremities normal to inspection; no cyanosis and no clubbing Skin: no rashes, warm and dry Neurologic: moves all extremities and awake; no focal motor deficits Psychiatric: A+Ox3, euthymic affect Results & Data Vital Signs (Past 12 Hours) Vital Signs Temp Pulse Pulse Resp BP Pulse Ox 03/16/19 16:01 36.5 C 84 20 121/65 95 03/16/19 14:20 79 03/16/19 11:58 36.8 C 81 20 125/59 L 94 03/16/19 07:58 36.6 C 84 20 116/65 94 03/16/19 07:00 90 03/16/19 04:26 36.8 C 93 H 18 127/68 94 Laboratory Results 03/16/19 03/16/19 03/16/19 Range/Units 12:24 05:54 05:54 WBC 10.82 H (4.8-10.8) K/uL RBC 3.71 L (4.2-5.4) M/uL Hgb 11.3 L (12.0-16.0) g/dL Hct 34.7 L (37-47) % MCV 93.5 (80-100) fL MCH 30.5 (25-34) pg MCHC 32.6 (32-36) g/dL RDW Std Deviation 49.4 H (36.4-46.3) fL RDW Coeff of Radhika 14.4 (11.5-14.5) % Plt Count 341 (130-400) K/uL MPV 9.1 (7.4-10.4) fL Sodium 137 (136-145) mmol/L Potassium 4.6 D (3.5-5.1) mmol/L Chloride 104 (98-107) mmol/L Carbon Dioxide 27 (21-32) mmol/L Anion Gap 6.0 (3-11) BUN 12 (7-18) mg/dl Creatinine 0.78 (0.6-1.2) mg/dl Est Cr Clr Drug Dosing 43.1 ml/min Est GFR ( Amer) 81.5 Est GFR (Non-Af Amer) 70.3 BUN/Creatinine Ratio 15.1 (10-20) Glucose 163 H (70-99) mg/dl Calcium 9.1 (8.5-10.1) mg/dl Troponin I 0.073 H* 0.105 H* (0-0.045) ng/ml PG Care Time/CCT Total # of Minutes Spent Total Time Spent with Patient: Total time spent is greater than 50% in coordination of care (as documented) at patient's floor/unit and/or counseling patient: (1) Hypothyroidism Hypothyroidism type: acquired Qualified Code(s): E03.9 - Hypothyroidism, unspecified (2) Hypertension Hypertension type: essential hypertension Qualified Code(s): I10 - Essential (primary) hypertension (3) Pneumonia Laterality: unspecified laterality Lung location: unspecified part of lung Pneumonia type: due to unspecified organism Qualified Code(s): J18.9 - Pneumonia, unspecified organism (4) Depression Depression Type: unspecified Qualified Code(s): F32.9 - Major depressive disorder, single episode, unspecified
[2019-03-16] MEDS: PANTOprazole 40 MG TAB PO SCH (20:35)
[2019-03-16] MEDS: cefTRIAXone SODIUM 1,000 MG in DEXTROSE 5% 50 ML IV SCH (20:36)
[2019-03-16] MEDS: AZITHROMYCIN 250 MG TAB PO SCH (20:54)
[2019-03-17 06:15] LABS: Calcium 9.5 mg/dl (8.5-10.1); Creatinine Clr Calc Pharmacy 40.5 ml/min; Est GFR (African American) 75.6; Est GFR (Non-African American) 65.2; Potassium 4.4 mmol/L (3.5-5.1)
[2019-03-17] MEDS: ENOXAPARIN INJ 40 MG/0.4 ML SYR SQ SCH (08:01)
[2019-03-17] MEDS: CITALOPRAM 20 MG TAB PO SCH (08:06)
[2019-03-17] MEDS: AMLODIPINE BESYLATE 5 MG TAB PO SCH (08:07)
[2019-03-17] MEDS: PRAVASTATIN SOD 40 MG TAB PO SCH (08:08)
[2019-03-17] MEDS: PANTOprazole 40 MG TAB PO SCH (08:09)
[2019-03-17] MEDS: methylPREDNISolone 40 MG in SYRINGE 0 ML IV SCH (08:13)
[2019-03-17] MEDS: TIOTROPIUM BROMIDE 5 PUFF/90 MCG INH INH SCH (08:14)
[2019-03-17] MEDS: LEVOTHYROXINE SODIUM 100 MCG TABLET PO SCH (08:15)
[2019-03-17] MEDS: BUDESONIDE/FORMOTEROL FUMARATE 160/4.5 60 PUFFS/INHALER INH SCH ×2 (08:15→20:43)
[2019-03-17] MEDS: ASCORBIC ACID 500 MG TAB PO SCH (08:16)
--- NOTE | 2019-03-17 14:32 | Hospitalist Progress Note ---
Date of Service March 17, 2019 Assessment & Plan (1) Pneumonia: Atypical appearance on CXR, but with cough, malaise, increased sputum production, mild respiratory insufficiency with POx 90% on RA on admission. - Continue IV ceftriaxone and azithromycin - Continue prn nebs (Xopenex and Atrovent) - Would get a follow-up CXR in 4-6 weeks to check on resolution of reticulonodular opacities. If still present, consider getting non-contrast CT chest. (2) COPD exacerbation: Improved. No longer with diffuse exp wheezes. - Switch to prednisone PO - Continue nebs, continue Spiriva, and Symbicort (3) Elevated troponin: Mild increase and then trended downward from 0.14/0.105. No chest pain, ECG normal. She had NO chest pain. - Suspect demand ischemia - Outpatient follow up for stress if deemed appropriate by PCP. (4) Dementia: Seems to be mild. She does not take anything for this. - No inpatient needs (5) Hypothyroidism: TSH normal in November 2018. - Continue Synthroid 100 mcg (6) Hypertension: BPs were high on admission. Up to 155/75 on 03/17. - Continued amlodipine (7) Peptic ulcer disease: H/o severe GI bleed with hemorrhagic shock in 09/2018. - Increased PPI to BID at least while on steroids - Taper off steroids quickly - Avoid NSAIDs, ASA (8) Depression: Mood seems appropriate today. - Continue Celexa (9) Murmur, cardiac: Sounds like MR. - Check echo (10) DVT prophylaxis: Lovenox SQ Subjective Doing well today. Not back at baseline, but shortness of breath and cough are improving. I completed a daily follow-up review of systems (ROS) with the patient. This is in addition to the above noted ROS. Gen: No fever or chills. No sweats. Neuro: No headache, no change in mental status CV: No chest pain, no palpitations Resp: No shortness of breath or cough GI: No abdominal pain, nausea, or vomiting MSK: No back pain, no other joint pain Skin: No rashes or bruising Physical Exam Constitutional: WD/WN, vitals as above Eyes: EOM intact bilaterally; no conjunctival abnormality ENMT: external ear and nose normal, oropharynx normal Neck: trachea midline, no thyromegaly normal visual inspection Respiratory: normal respiratory effort, lungs clear to auscultation no respiratory distress Cardiovascular: RRR, no murmur, no edema Gastrointestinal (Abdomen): Inspection/Auscultation: abdomen normal to inspection; abdomen not distended Musculoskeletal: no cyanosis or clubbing, extremities motor strength 5/5 Skin: no rashes, warm and dry Neurologic: moves all extremities and awake Psychiatric: Orientation: alert, oriented to person and cooperative Results & Data Vital Signs (Past 12 Hours) Vital Signs Temp Pulse Resp BP Pulse Ox 03/17/19 11:24 36.7 C 78 16 156/76 H 93 03/17/19 07:09 36.4 C L 83 20 146/71 H 91 03/17/19 03:25 36.7 C 84 20 136/73 94 PG Care Time/CCT Total # of Minutes Spent Total Time Spent with Patient: Total time spent is greater than 50% in coordination of care (as documented) at patient's floor/unit and/or counseling patient: (1) Pneumonia Laterality: unspecified laterality Lung location: unspecified part of lung Pneumonia type: due to unspecified organism Qualified Code(s): J18.9 - Pneumonia, unspecified organism (2) Hypothyroidism Hypothyroidism type: acquired Qualified Code(s): E03.9 - Hypothyroidism, un specified (3) Hypertension Hypertension type: essential hypertension Qualified Code(s): I10 - Essential (primary) hypertension (4) Depression Depression Type: unspecified Qualified Code(s): F32.9 - Major depressive disorder, single episode, unspecified
[2019-03-17] MEDS: AZITHROMYCIN 250 MG TAB PO SCH (19:31)
[2019-03-17] MEDS: cefTRIAXone SODIUM 1,000 MG in DEXTROSE 5% 50 ML IV SCH (20:42)
[2019-03-18] MEDS: ENOXAPARIN INJ 40 MG/0.4 ML SYR SQ SCH (08:26)
[2019-03-18] MEDS: CITALOPRAM 20 MG TAB PO SCH (08:26)
[2019-03-18] MEDS: AMLODIPINE BESYLATE 5 MG TAB PO SCH (08:26)
[2019-03-18] MEDS: TIOTROPIUM BROMIDE 5 PUFF/90 MCG INH INH SCH (08:27)
[2019-03-18] MEDS: PRAVASTATIN SOD 40 MG TAB PO SCH (08:27)
[2019-03-18] MEDS: LEVOTHYROXINE SODIUM 100 MCG TABLET PO SCH (08:28)
[2019-03-18] MEDS: BUDESONIDE/FORMOTEROL FUMARATE 160/4.5 60 PUFFS/INHALER INH SCH (08:28)
[2019-03-18] MEDS: ASCORBIC ACID 500 MG TAB PO SCH (08:28)
[2019-03-18] MEDS ORDERED: predniSONE 20 MG TAB PO SCH (09:00)
[2019-03-18] MEDS ORDERED: PANTOprazole 40 MG TAB PO SCH (09:00)
--- NOTE | 2019-03-18 18:12 | Discharge Summary ---
Date of Service March 18, 2019 Principal Diagnosis Pneumonia Discharge Exam Constitutional WD/WN, vitals as above Eyes EOM intact bilaterally; no conjunctival abnormality ENMT external ear and nose normal, oropharynx normal Neck trachea midline, no thyromegaly normal visual inspection Respiratory normal respiratory effort, lungs clear to auscultation no respiratory distress Cardiovascular RRR, no murmur, no edema Gastrointestinal (Abdomen) Inspection/Auscultation: abdomen normal to inspection; abdomen not distended Musculoskeletal no cyanosis or clubbing, extremities motor strength 5/5 Skin no rashes, warm and dry Neurologic moves all extremities and awake Psychiatric Orientation: alert, oriented to person and cooperative Discharge Data Allergies Allergy/AdvReac Type Severity Reaction Status Date / Time bupropion [From Wellbutrin] Allergy Mild Unknown Unverified 03/15/19 21:30 hydrochlorothiazide Allergy Mild Unknown Unverified 03/15/19 21:30 [From Avalide] irbesartan [From Avalide] Allergy Mild Unknown Unverified 03/15/19 21:30 roflumilast [From Daliresp] Allergy Mild Unknown Unverified 03/15/19 21:30 denosumab [From Prolia] Allergy Unknown Verified 03/15/19 21:30 tramadol Allergy Unknown Verified 03/15/19 21:30 ciprofloxacin [From Cipro] AdvReac Unknown Unverified 03/15/19 21:30 fentanyl [From Duragesic] AdvReac Hallucinati Verified 03/15/19 21:31 ng NSAIDS (Non-Steroidal AdvReac Unknown Unverified 03/15/19 21:30 Anti-Inflamma Consultations 03/15/19 23:10 ED Decision to Admit Stat 03/16/19 01:16 Consult Case Management - Discharge Planning Routine Hospital Course (1) Pneumonia: Atypical appearance on CXR, but with cough, malaise, increased sputum production, mild respiratory insufficiency with POx 90% on RA on admission. - Discharged on 3 more days of antibiotics and steroids. Discussed with the patient and Srinivasan Lipscomb. - Would get a follow-up CXR in 4-6 weeks to check on resolution of reticulonodular opacities. If still present, consider getting non-contrast CT chest. (2) COPD exacerbation: Improved. No longer with diffuse exp wheezes. - Switched to prednisone PO for few more day. - Continue nebs, continue Spiriva, and Symbicort (3) Elevated troponin: Mild increase and then trended downward from 0.14/0.105. No chest pain, ECG normal. She had NO chest pain. - Suspect demand ischemia - Outpatient follow up for stress if deemed appropriate by PCP. (4) Dementia: Seems to be mild. She does not take anything for this. - No inpatient needs (5) Hypothyroidism: TSH normal in November 2018. - Continue Synthroid 100 mcg (6) Hypertension: BPs were high on admission. Up to 155/75 on 03/17. - Continued amlodipine - May need to add additional agent if BP doesn't improve off of steroids. (7) Peptic ulcer disease: H/o severe GI bleed with hemorrhagic shock in 09/2018. - Increased PPI to BID temporarily. - Short steroid burst - Avoid NSAIDs, ASA (8) Depression: Mood seems appropriate today. - Continue Celexa (9) Murmur, cardiac: Mild/moderate aortic stenosis with mild aortic regurg. (10) DVT prophylaxis: Lovenox SQ Total Time Total Time Spent Total Time Spent (In Minutes): 35 Discharge Plan Discharge Items Patient Disposition: Personal Residential Reason For Visit: PNEUMONIA, COPD EXAC Discharge Diagnosis: Pneumonia, COPD exacerbation Activity: Resume your previous activity Non-emergency contact: Primary Care Provider Call non-emergency contact if: your symptoms worsen and your temperature is above 101 Follow-up/Referrals: Dariel Sheikh MD [Physician] - 04/01/19 2:00 pm (Please, follow up at [facility] Pulmonology Office with Dr. Sheikh on SundayApril 01 at 2:00 pm (arrive 1:45 pm). *The office is located in [address] of [facility]. This is the big building located next to this [facility]. If you need to change this appointment, call the office at [phone].) Berna Morton CRNP [Primary Care Provider] - 03/21/19 3:50 pm (Please, follow up at GEOFF Morton's office with her associate, Dr. Thomas, on SundayMarch 21 at 3:50 pm. *If you need to change this appointment, call their office at [phone].) Diet: Regular Addtl Attending Provider Instructions: Ms. Rodriguez was admitted for pneumonia and a COPD exacerbation. She did well with antibiotics, and by discharge was afebril, off oxygen, and ambulating well. She will need antibiotics for 3 more days and prednisone for 3 more days as well. She still has a cough which we will treat symptomatically. She will need follow up with her PCP and with pulmonology to determine further imaging needs. Pending Studies at Discharge: No Stand-Alone Forms: [facility] Skilled Items Patient informed of condition?: Yes DNR: No Discharge Level of Care: Other Communicable Disease: No Discharge Prognosis: Improving Lines: None Urinary Catheter: No Medications and DC Order Prescriptions: New cefdinir 300 mg capsule 300 mg PO BID Qty: 7 RF: 0 prednisone 20 mg tablet 40 mg PO DAILY 3 Days Qty: 6 RF: 0 benzonatate [Tessalon Perles] 100 mg capsule 100 mg PO TID PRN (Reason: cough) Qty: 20 RF: 0 guaifenesin 600 mg tablet extended release 12hr 600 mg PO BID PRN (Reason: cough) Qty: 30 RF: 0 Continued loperamide [Imodium A-D] 2 mg capsule 2 mg PO UD PRN (Reason: Diarrhea) RF: 0 pravastatin [Pravachol] 40 mg tablet 40 mg PO DAILY RF: 0 amlodipine [Norvasc] 5 mg tablet 5 mg PO DAILY RF: 0 acetaminophen [Tylenol Extra Strength] 500 mg Tablet 1,000 mg PO TID RF: 0 levothyroxine 100 mcg tablet 100 mcg PO DAILY RF: 0 citalopram [Celexa] 20 mg tablet 20 mg PO DAILY RF: 0 ascorbic acid (vitamin C) [Vitamin C] 250 mg Tablet 250 mg PO DAILY RF: 0 pantoprazole [Protonix] 40 mg tablet,delayed release (DR/EC) 40 mg PO DAILY RF: 0 levalbuterol HCl 1.25 mg/3 mL Solution For Nebulization 1.25 mg INHALATION TID PRN (Reason: Shortness Of Breath Or Wheezing) RF: 0 docusate sodium 100 mg Tablet 100 mg PO DAILY PRN (Reason: Constipation) RF: 0 oxycodone [Roxicodone] 5 mg tablet 5 - 10 mg PO Q6 PRN (Reason: Pain) RF: 0 Spiriva with HandiHaler 18 mcg capsule, w/inhalation device 1 cap inhalation CQWK RF: 0 Symbicort 160-4.5 mcg/actuation HFA aerosol inhaler 2 puff inhalation BID RF: 0 Children Multivitamin Tablet,Chewable 1 tab PO DAILY RF: 0 Discharge Orders: Discharge Order (Routine); Ordered 03/18/19 Ordered By: Bandar Holder Admission Data Admit Date/Time: 03/16/19 00:04 Attending Provider: Bandar Holder Admit Provider: Jovani Cristina Primary Care Provider: Berna Morton Other Providers: Jovani Cristina Other Interventions: Discharge Summary Assessment (RN) Last Done: 03/18/19 12:38 DC Date/Time DO NOT enter until pt leaves facility: 03/18/19 14:19
== END 2019-03-18 14:19 | disposition home or self-care (01) | DRG 190 ==
LOC: ED 20:54 → 2N 03-16 00:04 → SUATTDRO 03-16 00:04 → 2N 03-16 00:40 → 4W 03-17 14:20

== ENCOUNTER 2019-04-05 14:25 | Inpatient (IN) ==
[2019-04-05] MEDS ORDERED: SODIUM CHLORIDE 0.9% 1000ML 1,000 ML IV ONE (14:38)
[2019-04-05] MEDS ORDERED: ONDANSETRON INJ 2 MG/ML 2 ML VIAL IV STA (14:38)
[2019-04-05] MEDS ORDERED: MoRPHine SULFATE 2 MG/ML CARP IV PRN (14:41)
--- NOTE | 2019-04-05 15:06 | XRay Report ---
XR shoulder LT min 2V routine HISTORY: 84 years-old Female fall, left shoulder fx known, incr pain follow-up study in a patient wi th left shoulder fracture COMPARISON: Left shoulder radiographs 03/27/2019, left humerus radiographs 03/20/2019. TECHNIQUE: 2 views of the left shoulder FINDINGS: Subacute comminuted proximal humeral fracture redemonstrated with fractures involving the surgical ne ck, greater tuberosity and possibly also the lesser tuberosity. There is unchanged impaction with mil d displacement. Demineralized appearance of the bones. At least moderate glenohumeral osteoarthritis. Imaged lung hancock appear clear. IMPRESSION: Unchanged alignment of the subacute comminuted proximal humeral fracture. The above report was generated using voice recognition software. It may contain grammatical, syntax o r spelling errors. Electronically signed by: Oscar Major M.D. 04/05/2019 3:05 PM
[2019-04-05 15:36] LABS: Basophils # (auto) 0.04 K/uL (0-0.2); Basophils % (auto) 0.8 %; Eosinophils # (auto) 0.04 K/uL (0-0.5); Eosinophils % (auto) 0.8 %; Hematocrit (blood only) 30.9 % (37-47); Hemoglobin 10.3 g/dL (12.0-16.0); Immature Granulocytes # (auto) 0.01 K/uL (0.00-0.02); Immature Granulocytes % (auto) 0.2 %; Lymphocytes # (auto) 1.03 K/uL (1.2-3.4); Lymphocytes % (auto) 19.5 %; Mean Corpuscular Hemoglobin 30.7 pg (25-34); Mean Corpuscular Hgb Conc 33.3 g/dL (32-36); Mean Corpuscular Volume 92.2 fL (80-100); Mean Platelet Volume 8.2 fL (7.4-10.4); Monocytes # (auto) 0.43 K/uL (0.11-0.59); Monocytes % (auto) 8.1 %; Neutrophils # (auto) 3.73 K/uL (1.4-6.5); Neutrophils % (auto) 70.6 %; Platelet Count 562 K/uL (130-400); RDW Coefficient of Variation 15.9 % (11.5-14.5); RDW Standard Deviation 52.4 fL (36.4-46.3); Red Blood Count 3.35 M/uL (4.2-5.4); White Blood Count 5.28 K/uL (4.8-10.8)
[2019-04-05 15:51] LABS: Albumin Level 3.3 gm/dl (3.4-5.0); BUN Creatinine Ratio 15.4 (10-20); Calcium 9.2 mg/dl (8.5-10.1); Creatinine Clr Calc Pharmacy 36.3 ml/min; Est GFR (African American) 68.5; Est GFR (Non-African American) 59.1; Magnesium 1.9 mg/dl (1.8-2.4); Potassium 4.1 mmol/L (3.5-5.1)
[2019-04-05 15:55] LABS: Albumin Globulin Ratio 0.8 (0.9-2); Bilirubin,Total 0.8 mg/dl (0.2-1); Globulin 3.9 gm/dl (2.5-4.0); Total Protein 7.2 gm/dl (6.4-8.2)
--- NOTE | 2019-04-05 16:34 | CT Scan Report ---
ABDOMEN AND PELVIS CT WITHOUT CONTRAST CT DOSE: 254.62 mGy.cm HISTORY: Acute generalized abdominal pain with possible bowel obstruction. poss obstruc TECHNIQUE: Multiaxial CT images of the abdomen and pelvis were performed without contrast. A dose lo wering technique was utilized adhering to the principles of ALARA. COMPARISON STUDY: CT abdomen and pelvis 11/08/2018, CT pelvis 11/29/2018 FINDINGS: Patchy consolidative opacities of the basal right lower lobe. There are subtle tree-in-bud nodules of the left lung base and right middle lobe. Scattered calcified granulomata with emphysema. No pneumat osis or pneumoperitoneum. The imaged inferior cardiac chambers are unremarkable with coronary arteria l calcifications. Small left Bochdalek hernia. Limited evaluation of the solid abdominal organs without the use of IV contrast. Cholelithiasis with gallbladder distention appears unchanged. No definite CT evidence of acute cholecystitis. Diminutive morphology of the spleen. Unremarkable liver and adrenal glands. Moderate generalized pancreatic atro phy. Kidneys, ureters, and urinary bladder appear unremarkable. Streak artifact from left hip arthrop lasty limits evaluation of the pelvic structures. Hysterectomy. No adnexal mass lesion. Extensive marga cified plaque of the abdominal aorta with bilobed fusiform dilation of the suprarenal and infrarenal portions measuring up to 4.2 cm, unchanged. No adenopathy identified. Nonspecific prominent 1.2 x 0.9 cm periesophageal lymph node has mildly increased in size from compar ariel. No bowel obstruction. Moderate fecal retention. Scattered nondilated air-fluid levels within th e small bowel. Mild colonic diverticulosis without acute diverticulitis. Nonvisualization of the appe ndix. No ascites or mesenteric inflammation. Mild generalized body wall edema. Demineralized appearan ce of the bones. Remote appearing bilateral sacral insufficiency fractures with remote appearing frac ture of the inferior left pubic ramus. A 1 and L3 compression deformities are both new from compariso n. 4 mm retropulsion at L1 with 3 mm retropulsion at L3. No high-grade central canal stenosis or sign ificant paravertebral edema at these levels. IMPRESSION: 1. Right lung base consolidation suggests pneumonia versus aspiration pneumonitis. Mild associated bi basilar bronchiolitis. 2. No bowel obstruction or bowel wall thickening. A few scattered small bowel air-fluid levels may be physiologic or reflect a mild ileus or enteritis. 3. Moderate fecal retention. 4. Age-indeterminate L1 and L3 compression deformities are new from 11/08/2018 and both demonstrate mil d retropulsion without high-grade central canal stenosis. Correlate with patient history and point te nderness. 5. Aneurysmal dilation of the abdominal aorta redemonstrated, 4.1 cm. 6. Cholelithiasis without CT evidence of acute cholecystitis. 7. Additional findings as above. Electronically signed by: Oscar Major M.D. 04/05/2019 4:33 PM
--- NOTE | 2019-04-05 17:07 | XRay Report ---
XR chest 1V not portable HISTORY: 84 years-old Female pneumonia acute shortness of breath COMPARISON: Chest radiograph 03/25/2019 and 03/15/2019 TECHNIQUE: Portable AP view of the chest FINDINGS: Cardiac mediastinal and hilar silhouettes are unchanged. Persistent bilateral reticular nodular opaci ties. There are new alveolar opacities present within the medial right lung base. No pneumothorax, pl eural effusion or overt pulmonary edema. Subacute appearing comminuted proximal left humeral fracture redemonstrated with unchanged alignment. IMPRESSION: 1. Alveolar opacities of the medial right lung base are suspicious for pneumonia. 2. Background bilateral reticular nodular opacities redemonstrated. 3. Unchanged alignment of the comminuted subacute left proximal humeral fracture. The above report was generated using voice recognition software. It may contain grammatical, syntax o r spelling errors. Electronically signed by: Oscar Major M.D. 04/05/2019 5:06 PM
[2019-04-05] MEDS ORDERED: AMPICILLIN/SULBACTAM SOD 3,000 MG in 0.9 % SODIUM CHLORIDE 100 ML IV STA (17:18)
[2019-04-05] MEDS ORDERED: ALBUT/IPRATROP 3MG/0.5MG NEB 3 ML VIAL NEB STA (17:23)
--- NOTE | 2019-04-05 18:08 | Emergency Department Note ---
Entered by Ghada Patel acting as a scribe for Tyler Rice MD History of Present Illness General Chief complaint: Abdominal Pain Stated complaint: LEFT HIP PAIN - FEELS LIKE GETTING FLU Time Seen by Provider: 04/05/19 14:32 History of Present Illness Provider complaint: nausea Onset (ago): day(s) 4 Pain Consistency: + constant Maximum Pain Intensity: 7 Quality: + other (nausea) Relieved By: + none and + other (denies relief from laxatives) Associated symptoms: + denies other symptoms (abdominal pain, urinary problems), + loss of appetite and + other (broke shoulder 3 weeks ago with worsening pain in past week, doctor told her to take more pain medication, has not moved bowels in 3 days, feels like going to vomit, referred to ED from walk-in clinic for concern about bowel obstruction, lungs feeling better); no shortness of breath The patient is an 84 year old female who presents to the ED with complaints of constant nausea that started 4 days ago. Per daughter, the patient broke her shoulder 3 weeks ago and has been in a sling. The patient states that her shoulder pain has worsened in the past week and the doctor told her to take more of her prescribed pain medication. Per daughter, the patient has not had a bowel movement in at least 3 days. The patient states that she has not had much of an appetite and it feels like she is going to vomit. The patient states that nothing is relieving her of these symptoms. The patients daughter states that they took the patient to the walk-in clinic but then referred her to the ED as they were concerned about a bowel obstruction. The patient notes that she has tried laxatives, but they do not help. The patient denies abdominal pain and urinary problems. The patient notes that her lungs are doing much better since her last visit and she has not been short of breath. Home Medications Home Medications Medication Instructions Recorded Confirmed Type Children Multivitamin 1 tab PO DAILY 03/15/19 04/05/19 History Spiriva with HandiHaler 1 cap INHALATION CQWK 03/15/19 04/05/19 History Symbicort 2 puff INHALATION BID 03/15/19 04/05/19 History acetaminophen [Tylenol Extra 1,000 mg PO TID 03/15/19 04/05/19 History Strength] amlodipine [Norvasc] 5 mg PO DAILY 03/15/19 04/05/19 History ascorbic acid (vitamin C) [Vitamin 250 mg PO DAILY 03/15/19 04/05/19 History C] citalopram [Celexa] 20 mg PO DAILY 03/15/19 04/05/19 History docusate sodium 100 mg PO DAILY PRN 03/15/19 04/05/19 History levalbuterol HCl 1.25 mg INHALATION Q8 PRN 03/15/19 04/05/19 History levothyroxine 100 mcg PO DAILY 03/15/19 04/05/19 History loperamide [Imodium A-D] 2 mg PO UD PRN 03/15/19 04/05/19 History pantoprazole [Protonix] 40 mg PO DAILY 03/15/19 04/05/19 History pravastatin [Pravachol] 40 mg PO DAILY 03/15/19 04/05/19 History guaifenesin 600 mg PO BID PRN #30 tab 03/18/19 04/05/19 Rx oxycodone 5 - 10 mg PO Q4H PRN #14 tab 03/20/19 04/05/19 Rx Allergies Allergy/AdvReac Type Severity Reaction Status Date / Time bupropion [From Wellbutrin] Allergy Mild Unknown Unverified 04/05/19 17:02 hydrochlorothiazide Allergy Mild Unknown Unverified 04/05/19 17:02 [From Avalide] irbesartan [From Avalide] Allergy Mild Unknown Unverified 04/05/19 17:02 roflumilast [From Daliresp] Allergy Mild Unknown Unverified 04/05/19 17:02 denosumab [From Prolia] Allergy Unknown Verified 04/05/19 17:02 tramadol Allergy Unknown Verified 04/05/19 17:02 ciprofloxacin [From Cipro] AdvReac Unknown Unverified 04/05/19 17:02 fentanyl [From Duragesic] AdvReac Hallucinati Verified 04/05/19 17:02 ng NSAIDS (Non-Steroidal AdvReac Unknown Unverified 04/05/19 17:02 Anti-Inflamma Past Med/Surg History Medical History COPD exacerbation (Acute) Cough (Acute) Murmur, cardiac Peptic ulcer disease Pneumonia (Acute) Dehydration (Acute) Elevated troponin (Acute) Hypertensive urgency DVT prophylaxis Pseudomonas urinary tract infection Dementia Left hip pain Hyperlipidemia LDL goal <70 Altered mental status (Acute) Gallstones (Chronic) DVT prophylaxis Depression Hypothyroidism Hemorrhagic shock Duodenal bulb ulcer Anemia UTI (urinary tract infection) (Acute) Urinary retention (Acute) Closed sacral fracture (Acute) Hyponatremia (Acute) Anxiety COPD (chronic obstructive pulmonary disease) Hypertension Hypothyroidism Osteopenia Surgical History S/P AAA (abdominal aortic aneurysm) repair Family History Father , in his 70s of an LA. Hypertension Myocardial infarction Mother , in her 70s after a fall No problems noted. 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 Feels Safe at Home: Yes Smoking Status: Former smoker Second Hand Exposure: No ; Hx Alcohol Use: No Hx Substance Use: No Review of Systems See HPI for pertinent positives & negatives. and A total of 10 systems reviewed and were otherwise negative Physical Exam Vital Signs Vital Signs - 24 hr 04/05/19 14:28 04/05/19 14:49 04/05/19 16:25 Temperature 36.6 C Temperature Source Oral Oral Sepsis Recent Fever Within 48 Hours No Sepsis Action Taken by Nursing No Action Required Pulse Rate 104 H Pulse Rate [Apical] 80 Pulse Rhythm Regular Pulse Strength Normal Respiratory Rate 22 16 Respiratory Effort / Characteristics Non-Labored Spontaneous Respiratory Depth Normal Respiratory Pattern Regular Blood Pressure 144/74 H Blood Pressure [Left Arm] 128/62 Blood Pressure Mean 97 Blood Pressure Mean [Left Arm] 84 Blood Pressure Position Sitting Pulse Oximetry 91 93 Oxygen Delivery Method Room Air Room Air GENERAL: Patient is in no acute distress. HEENT: No acute trauma, normocephalic atraumatic, mucous membranes dry, no nasal congestion, no scleral icterus. NECK: No stridor, no adenopathy, no meningismus, trachea is midline. LUNGS: Clear to auscultation bilaterally, no wheeze, no rhonchi, breath sounds equal. HEART: 3/6 systolic murmur, regular rate and rhythm. ABDOMEN: Soft, nontender, bowel sounds positive, no hernias, no peritonitis. EXTREMITIES: Left upper extremity in sling. There is an older contusion around left shoulder with pain to palpate and move left shoulder. Mild bilateral pedal edema. NEUROLOGIC: Oriented x 3, no acute motor or sensory deficits, no focal weakness. SKIN: No rash, no jaundice, no diaphoresis. Course 1436: Past medical records reviewed. The patient was evaluated in room B02. A complete history and physical exam was performed. 1651: I reevaluated the patient and she appears comfortable. 1715: I updated the patient on the test results and plan for admission. She verbally agrees and understands. 1729: I discussed the patient's case with Dr. Henning [facility] Hospitalist. He will evaluate the patient for further management. Consultations Consultation #1: I discussed the patient's case with Dr. Henning [facility] Hospitalist. He will evaluate the patient for further management. Time: 17:29 Administered Medications Acetaminophen (Tylenol) 650 mg PO Q4H PRN PRN Reason: pain/fever Stop: 05/05/19 19:25 Last Admin: 04/05/19 19:45 Dose: 650 mg Documented by: [id number] Acetaminophen (Tylenol) 1,000 mg PO TID ON LICENSE OF [facility] Stop: 05/05/19 20:59 Last Admin: 04/05/19 20:13 Dose: Not Given Documented by: [id number] Budesonide/Formoterol Fumarate (Symbicort 160mcg/4.5mcg) 2 puffs INH BID MARGARITA Stop: 05/05/19 20:59 Last Admin: 04/05/19 20:12 Dose: 2 puffs Documented by: [id number] Heparin Sodium (Porcine) (Heparin Sodium (Porcine)) 5,000 units SQ Q8 MARGARITA Stop: 05/05/19 21:59 Last Admin: 04/05/19 21:31 Dose: Not Given Documented by: [id number] Sodium Chloride (Nss 1000ml) 1,000 mls @ 75 mls/hr IV .[id number] ON LICENSE OF [facility] Stop: 05/05/19 19:25 Last Admin: 04/05/19 19:45 Dose: 75 mls/hr Documented by: [id number] Morphine Sulfate (Morphine Sulfate) 4 mg IV Q4H PRN PRN Reason: Pain Stop: 04/19/19 19:25 Last Admin: 04/05/19 20:10 Dose: 4 mg Documented by: [id number] Discontinued Medications Albuterol (Duoneb) 3 ml NEB NOW STA Stop: 04/05/19 17:24 Last Admin: 04/05/19 17:41 Dose: 3 ml Documented by: [id number] Sodium Chloride (Nss 1000ml) 1,000 mls @ 999 mls/hr IV .Q1H1M ONE Stop: 04/05/19 15:38 Last Infusion: 04/05/19 17:14 Dose: 0 mls/hr Documented by: [id number] Admin: 04/05/19 15:51 Dose: 999 mls/hr Documented by: [id number] Ampicillin Sodium/Sulbactam Sodium 3,000 mg/ Sodium Chloride 108 mls @ 200 mls/hr IV NOW STA; Protocol Stop: 04/05/19 17:50 Last Infusion: 04/05/19 19:00 Dose: 0 mls/hr Documented by: [id number] Admin: 04/05/19 17:52 Dose: 200 mls/hr Documented by: [id number] Morphine Sulfate (Morphine Sulfate) 2 mg IV Q15M PRN PRN Reason: Pain Stop: 04/19/19 14:40 Last Admin: 04/05/19 15:51 Dose: 2 mg Documented by: [id number] Ondansetron HCl (Zofran) 4 mg IV NOW STA Stop: 04/05/19 14:39 Last Admin: 04/05/19 15:51 Dose: 4 mg Documented by: [id number] Medical Decision Making Differential Diagnosis Differentials include constipation, dehydration, electrolyte imbalance, UTI, bowel obstruction, worsening left shoulder fracture, renal failure. Medical Records Attestation: I reviewed the patient's medical records. Patient was seen here on 03/25/2019 for a cough and was diagnosed with exacerbation of COPD. The patient was discharged home. The patient followed up with pulmonology on 04/01/2019 and they felt like the patient was doing fairly well. Home Medications Current Medication List: was personally reviewed by me Laboratory Data Attestation: I reviewed the patient's lab results. Result diagrams: 04/05/19 15:24 04/05/19 15:24 Lab Results 04/05/19 04/05/19 Range/Units 15:24 15:24 WBC 5.28 (4.8-10.8) K/uL RBC 3.35 L (4.2-5.4) M/uL Hgb 10.3 L (12.0-16.0) g/dL Hct 30.9 L (37-47) % MCV 92.2 (80-100) fL MCH 30.7 (25-34) pg MCHC 33.3 (32-36) g/dL RDW Std Deviation 52.4 H (36.4-46.3) fL RDW Coeff of Radhika 15.9 H (11.5-14.5) % Plt Count 562 H (130-400) K/uL MPV 8.2 (7.4-10.4) fL Immature Gran % (Auto) 0.2 % Neut % (Auto) 70.6 % Lymph % (Auto) 19.5 % [place] % (Auto) 8.1 % Eos % (Auto) 0.8 % Baso % (Auto) 0.8 % Immature Gran # (Auto) 0.01 (0.00-0.02) K/uL Neut # (Auto) 3.73 (1.4-6.5) K/uL Lymph # (Auto) 1.03 L (1.2-3.4) K/uL [place] # (Auto) 0.43 (0.11-0.59) K/uL Eos # (Auto) 0.04 (0-0.5) K/uL Baso # (Auto) 0.04 (0-0.2) K/uL Sodium 136 (136-145) mmol/L Potassium 4.1 (3.5-5.1) mmol/L Chloride 103 (98-107) mmol/L Carbon Dioxide 26 (21-32) mmol/L Anion Gap 6.0 (3-11) BUN 14 (7-18) mg/dl Creatinine 0.90 (0.6-1.2) mg/dl Est Cr Clr Drug Dosing 36.3 ml/min Est GFR ( Amer) 68.5 Est GFR (Non-Af Amer) 59.1 BUN/Creatinine Ratio 15.4 (10-20) Glucose 108 H (70-99) mg/dl Calcium 9.2 (8.5-10.1) mg/dl Magnesium 1.9 (1.8-2.4) mg/dl Total Bilirubin 0.8 (0.2-1) mg/dl AST 23 (15-37) U/L ALT 19 (12-78) U/L Alkaline Phosphatase 157 H (45-117) U/L Total Protein 7.2 (6.4-8.2) gm/dl Albumin 3.3 L (3.4-5.0) gm/dl Globulin 3.9 (2.5-4.0) gm/dl Albumin/Globulin Ratio 0.8 L (0.9-2) Lipase 75 (73-393) U/L Imaging Data Radiologist's Impression: Radiology results as stated below per my review and the radiologist's interpretation: XR shoulder LT min 2V routine HISTORY: 84 years-old Female fall, left shoulder fx known, incr pain follow-up study in a patient with left shoulder fracture COMPARISON: Left shoulder radiographs 03/27/2019, left humerus radiographs 03/20/2019. TECHNIQUE: 2 views of the left shoulder FINDINGS: Subacute comminuted proximal humeral fracture redemonstrated with fractures involving the surgical neck, greater tuberosity and possibly also the lesser tuberosity. There is unchanged impaction with mild displacement. Demineralized appearance of the bones. At least moderate glenohumeral osteoarthritis. Imaged lung hancock appear clear. IMPRESSION: Unchanged alignment of the subacute comminuted proximal humeral fracture. The above report was generated using voice recognition software. It may contain grammatical, syntax or spelling errors. Electronically signed by: Oscar Major M.D. 04/05/2019 3:05 PM XR chest 1V not portable HISTORY: 84 years-old Female pneumonia acute shortness of breath COMPARISON: Chest radiograph 03/25/2019 and 03/15/2019 TECHNIQUE: Portable AP view of the chest FINDINGS: Cardiac mediastinal and hilar silhouettes are unchanged. Persistent bilateral reticular nodular opacities. There are new alveolar opacities present within the medial right lung base. No pneumothorax, pleural effusion or overt pulmonary edema. Subacute appearing comminuted proximal left humeral fracture redemonstrated with unchanged alignment. IMPRESSION: 1. Alveolar opacities of the medial right lung base are suspicious for pneumonia. 2. Background bilateral reticular nodular opacities redemonstrated. 3. Unchanged alignment of the comminuted subacute left proximal humeral fracture. The above report was generated using voice recognition software. It may contain grammatical, syntax or spelling errors. Electronically signed by: Oscar Major M.D. 04/05/2019 5:06 PM ABDOMEN AND PELVIS CT WITHOUT CONTRAST CT DOSE: 254.62 mGy.cm HISTORY: Acute generalized abdominal pain with possible bowel obstruction. poss obstruc TECHNIQUE: Multiaxial CT images of the abdomen and pelvis were performed without contrast. A dose lowering technique was utilized adhering to the principles of ALARA. COMPARISON STUDY: CT abdomen and pelvis 11/08/2018, CT pelvis 11/29/2018 FINDINGS: Patchy consolidative opacities of the basal right lower lobe. There are subtle tree-in-bud nodules of the left lung base and right middle lobe. Scattered calcified granulomata with emphysema. No pneumatosis or pneumoperitoneum. The imaged inferior cardiac chambers are unremarkable with coronary arterial calcifications. Small left Bochdalek hernia. Limited evaluation of the solid abdominal organs without the use of IV contrast. Cholelithiasis with gallbladder distention appears unchanged. No definite CT evidence of acute cholecystitis. Diminutive morphology of the spleen. Unremarkable liver and adrenal glands. Moderate generalized pancreatic atrophy. Kidneys, ureters, and urinary bladder appear unremarkable. Streak artifact from left hip arthroplasty limits evaluation of the pelvic structures. Hysterectomy. No adnexal mass lesion. Extensive calcified plaque of the abdominal aorta with bilobed fusiform dilation of the suprarenal and infrarenal portions measuring up to 4.2 cm, unchanged. No adenopathy identified. Nonspecific prominent 1.2 x 0.9 cm periesophageal lymph node has mildly increased in size from comparison. No bowel obstruction. Moderate fecal retention. Scattered nondilated air-fluid levels within the small bowel. Mild colonic diverticulosis without acute diverticulitis. Nonvisualization of the appendix. No ascites or mesenteric inflammation. Mild generalized body wall edema. Demineralized appearance of the bones. Remote appearing bilateral sacral insufficiency fractures with remote appearing fracture of the inferior left pubic ramus. A 1 and L3 compression deformities are both new from comparison. 4 mm retropulsion at L1 with 3 mm retropulsion at L3. No high-grade central canal stenosis or significant paravertebral edema at these levels. IMPRESSION: 1. Right lung base consolidation suggests pneumonia versus aspiration pneumonitis. Mild associated bibasilar bronchiolitis. 2. No bowel obstruction or bowel wall thickening. A few scattered small bowel air-fluid levels may be physiologic or reflect a mild ileus or enteritis. 3. Moderate fecal retention. 4. Age-indeterminate L1 and L3 compression deformities are new from 11/08/2018 and both demonstrate mild retropulsion without high-grade central canal stenosis. Correlate with patient history and point tenderness. 5. Aneurysmal dilation of the abdominal aorta redemonstrated, 4.1 cm. 6. Cholelithiasis without CT evidence of acute cholecystitis. 7. Additional findings as above. Electronically signed by: Oscar Major M.D. 04/05/2019 4:33 PM ECG Data Attestation: I personally reviewed and interpreted this ECG as follows: Indication: + nausea Rate (beats per minute): 94 Rhythm: + normal sinus ECG ST segments: no ST elevation ECG Findings: + Other (QTC 445); no PACs and no PVCs Blood Pressure Blood Pressure Findings: Elevated blood pressure Blood Pressure Disposition: further management by hospitalist [facility] Narrative There is no leukocytosis. The patient is anemic but this appears baseline looking back at previous testing. Platelet count slightly high at 562. No significant electrolyte abnormality or kidney failure. No worrisome liver enzyme elevation. No evidence for pancreatitis. Abdominal and pelvis CT shows constipation. There was a right lower lung pneumonia also noted. There was no bowel obstruction. Left shoulder film shows that the humeral head fracture is basically in the same position as before, there was no worsening of the fracture. Chest film does show a right lower lung pneumonia. On exam, the patient seemed somewhat dehydrated, she was not toxic, she was not febrile. Patient received IV Zofran for nausea, IV morphine for pain, she was given IV saline for hydration. She received a DuoNeb and then a dose of IV Unasyn as antibiotic coverage. The patient is not doing well as an outpatient. She has a left shoulder/humeral head fracture that is slowly healing. She has had increased pain lately and now is constipated from her pain medication. On top of everything, she now has a right lung pneumonia. She has a history of COPD. Given her age, given her findings and recent diagnoses, I do think a hospital stay is warranted. She is currently at assisted living and is becoming hard to care for at this facility. She is failing outpatient treatment. I spoke to the patient and to daughter. I spoke with test case developer. The on-call hospitalist was consulted. Impression & Plan Pneumonia, Dehydration, Constipation, Nausea, Fracture of head of left humerus, Failure of outpatient treatment Discharge Plan Visit Data *Final* Discharge Date/Time: 04/05/19 19:05 Chief Complaint: Abdominal Pain Stated Complaint: LEFT HIP PAIN - FEELS LIKE GETTING FLU ED Provider: Tyler Rice Discharge Problem: Pneumonia, Dehydration, Constipation, Nausea, Fracture of head of left humerus, Failure of outpatient treatment Patient Disposition: Admitted As Inpatient Discharge Instructions Interventions: ED Discharge Assessment Last Done: 04/05/19 19:05 Discharge Problem: Pneumonia Qualifiers: Pneumonia type: due to unspecified organism Laterality: unspecified laterality Lung location: unspecified part of lung Qualified Code(s): J18.9 - Pneumonia, unspecified organism Constipation Qualifiers: Constipation type: unspecified constipation type Qualified Code(s): K59.00 - Constipation, unspecified Fracture of head of left humerus Qualifiers: Encounter type: initial encounter Fracture type: closed Qualified Code(s): S42.292A - Other displaced fracture of upper end of left humerus, initial encounter for closed fracture The scribe's documentation has been prepared under my direction and personally reviewed by me in its entirety. I confirm that the note above accurately reflects all work, treatment, procedures, and medical decision making performed by me.
--- NOTE | 2019-04-05 18:10 | History & Physical Report ---
Date of Service April 05, 2019 Assessment & Plan (1) Pneumonia: Patient started on IV Unasyn. Continue the same. Check blood cultures. (2) Dehydration: Add gentle IV fluids. (3) Cough: (4) Hypothyroidism: Continue with Synthroid. (5) Altered mental status: Rule out metabolic encephalopathy. Rule out dementia versus delirium. (6) Fracture of head of left humerus: (7) Dementia: (8) Altered mental status: (9) Hypertension: (10) COPD (chronic obstructive pulmonary disease): (11) DVT prophylaxis: History of Present Illness Chief Complaint: Generalized weakness and decreased mental status Primary Care Provider: [facility] The patient is 84-year-old female who is a resident of assisted living facility. She has a recent history of left humerus fracture which is being managed conservatively. She was brought to the emergency room today with complaints of generalized weakness and fatigue for last few days. She has history of chronic cough. The further work-up done in the emergency room shows that patient has right-sided pneumonia. She was started on IV Unasyn and will be admitted for further evaluation and management. Patient history is a poor historian secondary to dementia and metabolic encephalopathy. According to the family, patient is currently a resident of assisted living facility but may need placement to [facility]. Allergies Allergy/AdvReac Type Severity Reaction Status Date / Time bupropion [From Wellbutrin] Allergy Mild Unknown Unverified 04/05/19 17:02 hydrochlorothiazide Allergy Mild Unknown Unverified 04/05/19 17:02 [From Avalide] irbesartan [From Avalide] Allergy Mild Unknown Unverified 04/05/19 17:02 roflumilast [From Daliresp] Allergy Mild Unknown Unverified 04/05/19 17:02 denosumab [From Prolia] Allergy Unknown Verified 04/05/19 17:02 tramadol Allergy Unknown Verified 04/05/19 17:02 ciprofloxacin [From Cipro] AdvReac Unknown Unverified 04/05/19 17:02 fentanyl [From Duragesic] AdvReac Hallucinati Verified 04/05/19 17:02 ng NSAIDS (Non-Steroidal AdvReac Unknown Unverified 04/05/19 17:02 Anti-Inflamma Home Medications Home Medications Medication Instructions Recorded Confirmed Type Children Multivitamin 1 tab PO DAILY 03/15/19 04/05/19 History Spiriva with HandiHaler 1 cap INHALATION CQWK 03/15/19 04/05/19 History Symbicort 2 puff INHALATION BID 03/15/19 04/05/19 History acetaminophen [Tylenol Extra 1,000 mg PO TID 03/15/19 04/05/19 History Strength] amlodipine [Norvasc] 5 mg PO DAILY 03/15/19 04/05/19 History ascorbic acid (vitamin C) [Vitamin 250 mg PO DAILY 03/15/19 04/05/19 History C] citalopram [Celexa] 20 mg PO DAILY 03/15/19 04/05/19 History docusate sodium 100 mg PO DAILY PRN 03/15/19 04/05/19 History levalbuterol HCl 1.25 mg INHALATION Q8 PRN 03/15/19 04/05/19 History levothyroxine 100 mcg PO DAILY 03/15/19 04/05/19 History loperamide [Imodium A-D] 2 mg PO UD PRN 03/15/19 04/05/19 History pantoprazole [Protonix] 40 mg PO DAILY 03/15/19 04/05/19 History pravastatin [Pravachol] 40 mg PO DAILY 03/15/19 04/05/19 History guaifenesin 600 mg PO BID PRN #30 tab 03/18/19 04/05/19 Rx oxycodone 5 - 10 mg PO Q4H PRN #14 tab 03/20/19 04/05/19 Rx Past Med/Surg History Medical History COPD exacerbation (Acute) Cough (Acute) Murmur, cardiac Peptic ulcer disease Pneumonia (Acute) Dehydration (Acute) Elevated troponin (Acute) Hypertensive urgency DVT prophylaxis Pseudomonas urinary tract infection Dementia Left hip pain Hyperlipidemia LDL goal <70 Altered mental status (Acute) Gallstones (Chronic) DVT prophylaxis Depression Hypothyroidism Hemorrhagic shock Duodenal bulb ulcer Anemia UTI (urinary tract infection) (Acute) Urinary retention (Acute) Closed sacral fracture (Acute) Hyponatremia (Acute) Anxiety COPD (chronic obstructive pulmonary disease) Hypertension Hypothyroidism Osteopenia Surgical History S/P AAA (abdominal aortic aneurysm) repair Family History Father , in his 70s of an HI. Hypertension Myocardial infarction Mother , in her 70s after a fall No problems noted. 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 Feels Safe at Home: Yes Safety Concerns: Feels Safe At This Time Smoking Status: Former smoker Do You Dip or Chew Tobacco: No ; Second Hand Exposure: No ; Tobacco Cessation Education Requested by Patient: No Hx Alcohol Use: No Hx Substance Use: No Review of Systems Review of Systems: All systems reviewed & are unremarkable except as noted in HPI & below Physical Exam Physical Exam: GENERAL : No acute distress EYES: No icterus, gaze conjugate NOSE: No evidence of epistaxis MOUTH: No lesions or candidiasis, mucosa moist NECK: Supple LUNGS: Decreased breath sounds at bases. HEART: Regular, rate controlled ABDOMEN: Soft, NT, ND, BS Present EXTREMITIES: No LE edema, pedal pulses intact JEANNETTE sling noted. NEURO: A&OX3 Results & Data Vital Signs (Past 12 Hours) Vital Signs Temp Pulse Pulse Resp BP BP Pulse Ox 04/05/19 17:52 97 H 17 135/79 92 04/05/19 17:41 93 H 16 92 04/05/19 16:25 80 16 128/62 93 04/05/19 14:28 97.9 F 104 H 22 144/74 H 91 Laboratory Results 04/05/19 15:24 04/05/19 15:24 Diagnostic Findings XR chest 1V not portable HISTORY: 84 years-old Female pneumonia acute shortness of breath COMPARISON: Chest radiograph 03/25/2019 and 03/15/2019 TECHNIQUE: Portable AP view of the chest FINDINGS: Cardiac mediastinal and hilar silhouettes are unchanged. Persistent bilateral reticular nodular opacities. There are new alveolar opacities present within the medial right lung base. No pneumothorax, pleural effusion or overt pulmonary edema. Subacute appearing comminuted proximal left humeral fracture redemonstrated with unchanged alignment. IMPRESSION: 1. Alveolar opacities of the medial right lung base are suspicious for pneumonia. 2. Background bilateral reticular nodular opacities redemonstrated. 3. Unchanged alignment of the comminuted subacute left proximal humeral fracture. cc: ~ XR shoulder LT min 2V routine HISTORY: 84 years-old Female fall, left shoulder fx known, incr pain follow-up study in a patient with left shoulder fracture COMPARISON: Left shoulder radiographs 03/27/2019, left humerus radiographs 03/20/2019. TECHNIQUE: 2 views of the left shoulder FINDINGS: Subacute comminuted proximal humeral fracture redemonstrated with fractures involving the surgical neck, greater tuberosity and possibly also the lesser tub erosity. There is unchanged impaction with mild displacement. Demineralized appearance of the bones. At least moderate glenohumeral osteoarthritis. Imaged lung hancock appear clear. IMPRESSION: Unchanged alignment of the subacute comminuted proximal humeral fracture. ABDOMEN AND PELVIS CT WITHOUT CONTRAST CT DOSE: 254.62 mGy.cm HISTORY: Acute generalized abdominal pain with possible bowel obstruction. poss obstruc TECHNIQUE: Multiaxial CT images of the abdomen and pelvis were performed without contrast. A dose lowering technique was utilized adhering to the principles of ALARA. COMPARISON STUDY: CT abdomen and pelvis 11/08/2018, CT pelvis 11/29/2018 FINDINGS: Patchy consolidative opacities of the basal right lower lobe. There are subtle tree-in-bud nodules of the left lung base and right middle lobe. Scattered calcified granulomata with emphysema. No pneumatosis or pneumoperitoneum. The imaged inferior cardiac chambers are unremarkable with coronary arterial calcifications. Small left Bochdalek hernia. Limited evaluation of the solid abdominal organs without the use of IV contrast. Cholelithiasis with gallbladder distention appears unchanged. No definite CT evidence of acute cholecystitis. Diminutive morphology of the spleen. Unremarkable liver and adrenal glands. Moderate generalized pancreatic atrophy. Kidneys, ureters, and urinary bladder appear unremarkable. Streak artifact from left hip arthroplasty limits evaluation of the pelvic structures. Hysterectomy. No adnexal mass lesion. Extensive calcified plaque of the abdominal aorta with bilobed fusiform dilation of the suprarenal and infrarenal portions measuring up to 4.2 cm, unchanged. No adenopathy identified. Nonspecific prominent 1.2 x 0.9 cm periesophageal lymph node has mildly increased in size from comparison. No bowel obstruction. Moderate fecal retention. Scattered nondilated air-fluid levels within the small bowel. Mild colonic diverticulosis without acute diverticulitis. Nonvisualization of the appendix. No ascites or mesenteric inflammation. Mild generalized body wall edema. Demineralized appearance of the bones. Remote appearing bilateral sacral insufficiency fractures with remote appearing fracture of the inferior left pubic ramus. A 1 and L3 compression deformities are both new from comparison. 4 mm retropulsion at L1 with 3 mm retropulsion at L3. No high-grade central canal stenosis or significant paravertebral edema at these levels. IMPRESSION: 1. Right lung base consolidation suggests pneumonia versus aspiration pneumonitis. Mild associated bibasilar bronchiolitis. 2. No bowel obstruction or bowel wall thickening. A few scattered small bowel air-fluid levels may be physiologic or reflect a mild ileus or enteritis. 3. Moderate fecal retention. 4. Age-indeterminate L1 and L3 compression deformities are new from 11/08/2018 and both demonstrate mild retropulsion without high-grade central canal stenosis. Correlate with patient history and point tenderness. 5. Aneurysmal dilation of the abdominal aorta redemonstrated, 4.1 cm. 6. Cholelithiasis without CT evidence of acute cholecystitis. 7. Additional findings as above. Code Status & VTE Plan VTE Prophylaxis Plan VTE Prophylaxis will be ordered: Yes PG Care Time/CCT Total # of Minutes Spent Total Time Spent with Patient: Total time spent is greater than 50% in coordination of care (as documented) at patient's floor/unit and/or counseling patient: 60 min (1) Pneumonia Laterality: unspecified laterality Lung location: unspecified part of lung Pneumonia type: due to unspecified organism Qualified Code(s): J18.9 - Pneumonia, unspecified organism (2) Hypothyroidism Hypothyroidism type: acquired Qualified Code(s): E03.9 - Hypothyroidism, unspecified (3) Altered mental status Altered mental status type: delirium Qualified Code(s): R41.0 - Disori entation, unspecified (4) Fracture of head of left humerus Encounter type: initial encounter Fracture type: closed Qualified Code(s): S42.292A - Other displaced fracture of upper end of left humerus, initial encounter for closed fracture (5) Altered mental status Altered mental status type: unspecified Qualified Code(s): R41.82 - Altered mental status, unspecified (6) Hypertension Hypertension type: essential hypertension Qualified Code(s): I10 - Essential (primary) hypertension
[2019-04-05] MEDS ORDERED: DOCUSATE SODIUM 100 MG CAP PO PRN (19:26)
[2019-04-05] MEDS ORDERED: LEVALBUTEROL HCL 1.25 MG/3 ML NEB INH PRN (19:26)
[2019-04-05] MEDS ORDERED: guaiFENesin 600 MG TABCR PO PRN (19:26)
[2019-04-05] MEDS: SODIUM CHLORIDE 0.9% 1000ML 1,000 ML IV SCH (19:45)
[2019-04-05] MEDS: ACETAMINOPHEN 325 MG TAB PO PRN (19:45)
[2019-04-05] MEDS: MoRPHine SULFATE 4 MG/ML 1 ML CARP\\VIAL IV PRN (20:10)
[2019-04-05] MEDS: BUDESONIDE/FORMOTEROL FUMARATE 160/4.5 60 PUFFS/INHALER INH SCH (20:12)
[2019-04-05] MEDS: ACETAMINOPHEN 500 MG TAB PO SCH (20:13)
[2019-04-05] MEDS: HEPARIN SOD 5,000 UNIT/0.5 ML VIAL SQ SCH (21:31)
[2019-04-06] MEDS: AMPICILLIN/SULBACTAM SOD 1,500 MG in 0.9 % SODIUM CHLORIDE 100 ML IV SCH ×2 (00:07→06:00)
[2019-04-06] MEDS: MoRPHine SULFATE 4 MG/ML 1 ML CARP\\VIAL IV PRN (01:24)
[2019-04-06 05:48] LABS: Hematocrit (blood only) 29.1 % (37-47); Hemoglobin 9.4 g/dL (12.0-16.0); Mean Corpuscular Hemoglobin 30.8 pg (25-34); Mean Corpuscular Hgb Conc 32.3 g/dL (32-36); Mean Corpuscular Volume 95.4 fL (80-100); Mean Platelet Volume 8.4 fL (7.4-10.4); Platelet Count 565 K/uL (130-400); RDW Coefficient of Variation 16.3 % (11.5-14.5); RDW Standard Deviation 55.2 fL (36.4-46.3); Red Blood Count 3.05 M/uL (4.2-5.4); White Blood Count 4.57 K/uL (4.8-10.8)
[2019-04-06] MEDS: LEVOTHYROXINE SODIUM 100 MCG TABLET PO SCH (06:00)
[2019-04-06] MEDS: HEPARIN SOD 5,000 UNIT/0.5 ML VIAL SQ SCH ×3 (06:02→21:36)
[2019-04-06 06:13] LABS: Albumin Level 2.6 gm/dl (3.4-5.0); BUN Creatinine Ratio 14.4 (10-20); Bilirubin Direct 0.3 mg/dl (0-0.2); Calcium 8.6 mg/dl (8.5-10.1); Creatinine Clr Calc Pharmacy 46.7 ml/min; Est GFR (African American) 92.9; Est GFR (Non-African American) 80.1; Magnesium 1.6 mg/dl (1.8-2.4)
[2019-04-06 06:19] LABS: Albumin Globulin Ratio 0.8 (0.9-2); Bilirubin,Total 0.8 mg/dl (0.2-1); Globulin 3.2 gm/dl (2.5-4.0); Total Protein 5.8 gm/dl (6.4-8.2)
[2019-04-06] MEDS: FLINTSTONES COMPLETE CHEWABLE TAB PO SCH (08:17)
[2019-04-06] MEDS: ASCORBIC ACID 500 MG TAB PO SCH (08:18)
[2019-04-06] MEDS: PRAVASTATIN SOD 40 MG TAB PO SCH (08:19)
[2019-04-06] MEDS: PANTOprazole 40 MG TAB PO SCH (08:19)
[2019-04-06] MEDS: AMLODIPINE BESYLATE 5 MG TAB PO SCH (08:19)
[2019-04-06] MEDS: CITALOPRAM 20 MG TAB PO SCH (08:19)
[2019-04-06] MEDS: BUDESONIDE/FORMOTEROL FUMARATE 160/4.5 60 PUFFS/INHALER INH SCH ×2 (08:20→21:36)
[2019-04-06] MEDS: ACETAMINOPHEN 500 MG TAB PO SCH ×3 (08:20→21:36)
[2019-04-06] MEDS: SODIUM CHLORIDE 0.9% 1000ML 1,000 ML IV SCH ×2 (08:21→22:24)
[2019-04-06] MEDS: TIOTROPIUM BROMIDE 5 PUFF/90 MCG INH INH SCH (08:21)
--- NOTE | 2019-04-06 10:29 | Hospitalist Progress Note ---
Date of Service April 06, 2019 Assessment & Plan (1) Weakness generalized: Jennifer is an 84-year-old female with a past medical history of dementia, hypothyroidism, COPD, hypertension, and constipation who presents with several days of generalized weakness, fatigue, and intermittent nonproductive cough. Chronic cough 2/2 aspiration versus slowly resolving pneumonia Recent hospital admission for pneumonia Upper hancock of CTabdomen shows some left-sided pulmonary consolidations isabel kaycee atelectasis, CXR shows mild alveolar opacities No leukocytosis, normal sats on room air, afebrile. CRP mildly elevated, pro-Jasper within normal limits Suspect residual, slowly resolving lung changes versus aspiration without acute pneumonia Discontinue empiric Unasyn and observe overnight - CBC daily - speech eval for completeness Constipation CTabdomen pelvis shows high stool burden Docusate 100 mg daily as needed MiraLAX 34 g daily Left proximal humeral fracture, nondisplaced Stable, nondisplaced No interval change or displacement from prior imaging No signs of overlying infection or skin breakdown No acute changes management at this time. Pain control with Tylenol 1 g 3 times daily Morphine 4 mg IV every 4 hours as needed, minimize narcotic use 2/2 constipation COPD Continue budesonide/formoterol 2 puffs twice daily Continue continue p.o. trospium 1 puff daily Albuterol as needed every 4 hours Hypothyroidism Synthroid 100 mcg daily GERD Pantoprazole 40 mg daily hyperlipidemia Pravastatin 40 mg daily Depression/anxiety Citalopram 20 mg p.o. daily DVT Prophylaxis: Heparin 5,000u Q8H CODE: Full Code Dispo: Likely to [facility] when stable, pending PT/OT; [facility] temporarily if [facility] not able to take her when ready for discharge. (2) Constipation: (3) Pneumonia: (4) Dehydration: (5) COPD (chronic obstructive pulmonary disease): (6) Nausea: (7) Fracture of head of left humerus: (8) Cough: (9) Peptic ulcer disease: Supervising Physician Co-Signing Physician Notes I personally examined the patient and verified all stinson points of history and exam, discussed case, and agree with decision making with Dr Villaseñor. seems to be doing ok. due to mental status not much meaningful HPI or ROS. d/w dtr extensively. vitals noted nad heent nc at mmm breathing unlabored no accessory muscles good effort no focal neuro deficits arm in a sling delirium (mixed predominantly metabolic encephalopathy) -precipitating factors - dehydration, constipation, possibly effects from arm pain and pain meds; now compounded by hospital environment -does not show septic/infectious factors -fluids supportive care, bowel regimen -PT/OT eval and treat - [facility] with additional support vs [facility] with return to [facility] after dc shoulder fx -pain control - but delicate balance between getting pain reasonable and not worsening constipation or delirium RLL findings on CXR and CT -without fever/white count; with CRP and procal quite reassuring - doubt active infection -suspect resolving from last pneumonia, but ask speech for eval for completeness otherwise as above Subjective Jennifer is seen at the bedside this morning. She report she feels 'OK.' endorses pain in her L shoulder. Denies shortness of breath, fever, chills, sweats. Endorses cough which is dry this morning. No numbness, tingling in her fingers. No questions or concerns. history limited by dementia. Review of Systems Review of Systems: History limited by dementia Constitutional: Denies fever, chills Eyes: Denies vision change ENT: Denies ear pain, sore throat, sinus pain Cardiovascular: Denies Chest pain, chest pressure, palpitations, extremity swelling Respiratory: Denies shortness of breath, sputum production, difficulty breathing. Endorses cough. Gastrointestinal: Denies abdominal pain, nausea, vomiting, constipation, diar rigoberto Genitourinary: Denies pain with urination Musculoskeletal: Endorses L shoulder/arm pain. Integumentary:Denies rash, lesions Neurological: Denies headache, numbness, tingling Physical Exam Physical Exam: General: Alert to name only. NAD. Cooperative. HEENT: Atraumatic, normocephalic. Pulm: diminished, but grossly CTAB A&P. -wheezes, -rales, -rhonchi. Symmetrical chest rise. No increase work of breathing. No respiratory distress. Cardiac: RRR, -mrg. Radial pulses intact and symmetrical. Abdominal: Nontender, nondistended, soft. BS present. MSK: L shoulder TTP at proximal humerous, AC joint, and anterior shoulder. Finger flexion/extension and media relations director strength intact with 5/5 strength and normal sensation bilaterally. Radial pulse intact bilaterally. Results & Data Vital Signs (Past 12 Hours) Vital Signs Temp Pulse Resp BP Pulse Ox 04/06/19 07:19 37.0 C 83 18 142/69 H 90 04/05/19 23:46 37.1 C 97 H 18 129/56 L 91 PG Care Time/CCT Total # of Minutes Spent Total Time Spent with Patient: Total time spent is greater than 50% in coordination of care (as documented) at patient's floor/unit and/or counseling patient: Resident Activity Tracking Resident Involvement: Resident Care Provided Care Provided: Adult Hospital Medicine (1) Fracture of head of left humerus Encounter type: initial encounter Fracture type: closed Qualified Code(s): S42.292A - Other displaced fracture of upper end of left humerus, initial encounter for closed fracture (2) Pneumonia Laterality: unspecified laterality Lung location: unspecified part of lung Pneumonia type: due to unspecified organism Qualified Code(s): J18.9 - Pneumonia, unspecified organism (3) Constipation Constipation type: unspecified constipation type Qualified Code(s): K59.00 - Constipation, unspecified
[2019-04-06] MEDS: POLYETHYLENE (MIRALAX) 17 GM PACK PO SCH (10:59)
[2019-04-06] MEDS: ACETAMINOPHEN 325 MG TAB PO PRN (11:03)
[2019-04-07] MEDS: MoRPHine SULFATE 4 MG/ML 1 ML CARP\\VIAL IV PRN (01:33)
[2019-04-07] MEDS: LEVOTHYROXINE SODIUM 100 MCG TABLET PO SCH (05:18)
[2019-04-07] MEDS: HEPARIN SOD 5,000 UNIT/0.5 ML VIAL SQ SCH ×3 (05:22→20:34)
[2019-04-07] MEDS: OXYCODONE HCL IR 5 MG TAB (IMMEDIATE RELEASE) PO PRN ×2 (05:25→18:28)
[2019-04-07] MEDS: PRAVASTATIN SOD 40 MG TAB PO SCH (07:53)
[2019-04-07] MEDS: ACETAMINOPHEN 500 MG TAB PO SCH ×3 (07:53→20:35)
[2019-04-07] MEDS: POLYETHYLENE (MIRALAX) 17 GM PACK PO SCH (07:53)
[2019-04-07] MEDS: PANTOprazole 40 MG TAB PO SCH (07:53)
[2019-04-07] MEDS: BUDESONIDE/FORMOTEROL FUMARATE 160/4.5 60 PUFFS/INHALER INH SCH ×2 (07:54→20:34)
[2019-04-07] MEDS: ASCORBIC ACID 500 MG TAB PO SCH (07:54)
[2019-04-07] MEDS: FLINTSTONES COMPLETE CHEWABLE TAB PO SCH (07:54)
[2019-04-07] MEDS: TIOTROPIUM BROMIDE 5 PUFF/90 MCG INH INH SCH (07:55)
[2019-04-07] MEDS: AMLODIPINE BESYLATE 5 MG TAB PO SCH (07:55)
[2019-04-07] MEDS: CITALOPRAM 20 MG TAB PO SCH (07:55)
[2019-04-07] MEDS: SODIUM CHLORIDE 0.9% 1000ML 1,000 ML IV SCH (11:41)
--- NOTE | 2019-04-07 15:40 | Hospitalist Progress Note ---
Date of Service April 07, 2019 Assessment & Plan (1) Weakness generalized: Jennifer is an 84-year-old female with a past medical history of dementia, hypothyroidism, COPD, hypertension, and constipation who presents with several days of generalized weakness, fatigue, and intermittent nonproductive cough. Chronic cough 2/2 aspiration versus slowly resolving pneumonia Recent hospital admission for pneumonia [place] of CTabdomen shows some left-sided pulmonary consolidations versus atelectasis, CXR shows mild alveolar opacities No leukocytosis, normal sats on room air, afebrile. CRP mildly elevated, pro-Jasper within normal limits Suspect residual, slowly resolving lung changes versus aspiration without acute pneumonia Discontinue empiric Unasyn and observe overnight. Has been afebrile, no white count - CBC daily -POLICE AIDE eval- normal swallowing, no concern for aspiration Delirium -likely 2/2 dehydration, constipation, possibly effects from arm pain and pain meds; now compounded by hospital environment -does not show septic/infectious factors -fluids, supportive care, bowel regimen Constipation CTabdomen pelvis shows high stool burden Docusate 100 mg daily as needed MiraLAX 34 g daily Left proximal humeral fracture, nondisplaced Stable, nondisplaced No interval change or displacement from prior imaging No signs of overlying infection or skin breakdown No acute changes management at this time. Pain control with Tylenol 1 g TID daily MARGARITA -Oxycodone 2.5 mg qid prn Morphine 4 mg IV every 4 hours as needed, minimize narcotic use 2/2 constipation COPD Continue budesonide/formoterol 2 puffs twice daily Continue continue p.o. trospium 1 puff daily Albuterol as needed every 4 hours Hypothyroidism Synthroid 100 mcg daily GERD Pantoprazole 40 mg daily hyperlipidemia Pravastatin 40 mg daily Depression/anxiety Citalopram 20 mg p.o. daily FEN/GI: HH Diet DVT Prophylaxis: Heparin 5,000u Q8H Full Code Dispo: PT/OT eval and treat - [facility] with additional support vs [facility] with return to [facility] after dc Supervising Physician Co-Signing Physician Notes I saw the patient concur with the resident physician and confirmed stinson portions of history and physical exam. I agree with the impression and plan as noted above. Upon examination, the patient is sleeping but awakens to voice. She is alert and generally oriented; she is able to confirm her history generally but is unable to recall specifics (i.e. she is able to tell me she fell injuring her arm but she cannot member how long ago that was or where it was). From discussion with other providers, it sounds as this is her baseline mental status. delirium (mixed predominantly metabolic encephalopathy) Improving, multifactorial including dehydration, constipation, and medication side effects. While CRP was mildly elevated procalcitonin was normal Blood cultures showing no growth to date. PT/OT evaluation to determine if she can return to her personal care facility or if she needs rehabilitation shoulder fx Discussed striking a balance between pain control and side effects of pain medications Patient voiced understanding of this discussion. RLL findings on CXR?CT Without other indications of active infection (leukocytosis, fever, CRP/procalcitonin), thought is that this represents resolving infection rather than active infection Speech therapy evaluation is pending for completeness Subjective 84 yo F found in bed this AM in NAD. No reported overnight events. Ongoing L shoulder pain, but otherwise feels 'ok'. History limited by dementia, but pt without other acute concerns or complaints. Review of Systems Review of Systems: All systems reviewed & are unremarkable except as noted in HPI & below Physical Exam Constitutional: WD/WN, vitals as above Eyes: PERRL, conjunctivae normal, anicteric sclerae ENMT: external ear and nose normal, oropharynx normal Respiratory: diminished but CTAB Cardiovascular: RRR, no murmur, no edema Gastrointestinal (Abdomen): normal bowel sounds, soft, nontender, no hepatosplenomegaly Musculoskeletal: L shoulder TTP at proximal humerus, AC joint, anterior shoulder Skin: no rashes, warm and dry Psychiatric: Orientation: alert, oriented x 3 and oriented to person Results & Data Vital Signs (Past 12 Hours) Vital Signs Temp Pulse Resp BP Pulse Ox 04/07/19 07:16 36.7 C 87 18 169/78 H 94 Medications Administered Current Inpatient Medications Acetaminophen (Tylenol) 1,000 mg PO TID MARGARITA Stop: 05/05/19 20:59 Last Admin: 04/07/19 12:47 Dose: 1,000 mg Documented by: Amlodipine Besylate (Norvasc) 5 mg PO DAILY MARGARITA Stop: 05/06/19 08:59 Last Admin: 04/07/19 07:55 Dose: 5 mg Documented by: Ascorbic Acid (Vitamin C) 250 mg PO DAILY MARGARITA Stop: 05/06/19 08:59 Last Admin: 04/07/19 07:54 Dose: 250 mg Documented by: Budesonide/Formoterol Fumarate (Symbicort 160mcg/4.5mcg) 2 puffs INH BID MARGARITA Stop: 05/05/19 20:59 Last Admin: 04/07/19 07:54 Dose: 2 puffs Documented by: Citalopram Hydrobromide (Celexa) 20 mg PO DAILY MARGARITA Stop: 05/06/19 08:59 Last Admin: 04/07/19 07:55 Dose: 20 mg Documented by: Docusate Sodium (Colace) 100 mg PO DAILY PRN PRN Reason: Constipation Last Admin: 04/06/19 10:59 Dose: 100 mg Documented by: Guaifenesin (Mucinex) 600 mg PO BID PRN PRN Reason: cough Stop: 05/05/19 19:25 Last Admin: 04/06/19 08:19 Dose: 600 mg Documented by: Heparin Sodium (Porcine) (Heparin Sodium (Porcine)) 5,000 units SQ Q8 MARGARITA Stop: 05/05/19 21:59 Last Admin: 04/07/19 13:49 Dose: 5,000 units Documented by: Sodium Chloride (Nss 1000ml) 1,000 mls @ 75 mls/hr IV .[id number] MARGARITA Stop: 05/05/19 19:25 Last Admin: 04/07/19 11:41 Dose: 75 mls/hr Documented by: Levalbuterol HCl (Xopenex 1.25mg/3ml Neb) 1.25 mg INH Q8R PRN PRN Reason: Shortness Of Breath Or Wheezing Stop: 05/05/19 19:25 Levothyroxine Sodium (Synthroid) 100 mcg PO DAILYBB [facility] Stop: 05/06/19 06:29 Last Admin: 04/07/19 05:18 Dose: 100 mcg Documented by: Morphine Sulfate (Morphine Sulfate) 4 mg IV Q4H PRN PRN Reason: Pain Stop: 04/19/19 19:25 Last Admin: 04/07/19 01:33 Dose: 4 mg Documented by: Multivitamins/Folic Acid/Vitamin C (Flintstones Complete Chew Tab) 1 tab PO DAILY [facility] Stop: 05/06/19 08:59 Last Admin: 04/07/19 07:54 Dose: 1 tab Documented by: Oxycodone HCl (Roxicodone Immediate Rel) 2.5 mg PO QID PRN PRN Reason: Pain Stop: 04/20/19 18:26 Last Admin: 04/07/19 05:25 Dose: 2.5 mg Documented by: Pantoprazole Sodium (Protonix) 40 mg PO DAILY MARGARITA Stop: 05/06/19 08:59 Last Admin: 04/07/19 07:53 Dose: 40 mg Documented by: Polyethylene Glycol (Miralax Powder Packet) 34 gm PO DAILY MARGARITA Stop: 05/06/19 10:29 Last Admin: 04/07/19 07:53 Dose: 34 gm Documented by: Pravastatin Sodium (Pravachol) 40 mg PO DAILY MARGARITA Stop: 05/06/19 08:59 Last Admin: 04/07/19 07:53 Dose: 40 mg Documented by: Tiotropium [place] (Spiriva) 1 puffs INH DAILY MARGARITA Stop: 05/06/19 08:59 Last Admin: 04/07/19 07:55 Dose: 1 puffs Documented by: PG Care Time/CCT Total # of Minutes Spent Total Time Spent with Patient: Total time spent is greater than 50% in coordination of care (as documented) at patient's floor/unit and/or counseling patient: Resident Activity Tracking Resident Involvement: Resident Care Provided Care Provided: Adult Hospital Medicine
[2019-04-08] MEDS: SODIUM CHLORIDE 0.9% 1000ML 1,000 ML IV SCH (00:25)
[2019-04-08] MEDS: MoRPHine SULFATE 4 MG/ML 1 ML CARP\\VIAL IV PRN ×2 (00:26→07:39)
[2019-04-08] MEDS: HEPARIN SOD 5,000 UNIT/0.5 ML VIAL SQ SCH ×2 (06:05→14:37)
[2019-04-08] MEDS: LEVOTHYROXINE SODIUM 100 MCG TABLET PO SCH (06:20)
[2019-04-08] MEDS: POLYETHYLENE (MIRALAX) 17 GM PACK PO SCH (07:38)
[2019-04-08] MEDS: ASCORBIC ACID 500 MG TAB PO SCH (07:39)
[2019-04-08] MEDS: BUDESONIDE/FORMOTEROL FUMARATE 160/4.5 60 PUFFS/INHALER INH SCH (07:39)
[2019-04-08] MEDS: TIOTROPIUM BROMIDE 5 PUFF/90 MCG INH INH SCH (07:39)
[2019-04-08] MEDS: ACETAMINOPHEN 500 MG TAB PO SCH ×2 (07:40→13:39)
[2019-04-08] MEDS: FLINTSTONES COMPLETE CHEWABLE TAB PO SCH (07:40)
[2019-04-08] MEDS: AMLODIPINE BESYLATE 5 MG TAB PO SCH (07:40)
[2019-04-08] MEDS: PANTOprazole 40 MG TAB PO SCH (07:40)
[2019-04-08] MEDS: PRAVASTATIN SOD 40 MG TAB PO SCH (07:40)
[2019-04-08] MEDS: CITALOPRAM 20 MG TAB PO SCH (07:42)
[2019-04-08 08:14] LABS: Basophils # (auto) 0.03 K/uL (0-0.2); Basophils % (auto) 0.5 %; Eosinophils # (auto) 0.28 K/uL (0-0.5); Eosinophils % (auto) 5.1 %; Hematocrit (blood only) 31.5 % (37-47); Hemoglobin 10.2 g/dL (12.0-16.0); Immature Granulocytes # (auto) 0.01 K/uL (0.00-0.02); Immature Granulocytes % (auto) 0.2 %; Lymphocytes # (auto) 1.82 K/uL (1.2-3.4); Lymphocytes % (auto) 33.2 %; Mean Corpuscular Hemoglobin 30.7 pg (25-34); Mean Corpuscular Hgb Conc 32.4 g/dL (32-36); Mean Corpuscular Volume 94.9 fL (80-100); Mean Platelet Volume 8.5 fL (7.4-10.4); Monocytes # (auto) 0.42 K/uL (0.11-0.59); Monocytes % (auto) 7.7 %; Neutrophils # (auto) 2.93 K/uL (1.4-6.5); Neutrophils % (auto) 53.3 %; Platelet Count 614 K/uL (130-400); RDW Coefficient of Variation 16.7 % (11.5-14.5); RDW Standard Deviation 56.2 fL (36.4-46.3); Red Blood Count 3.32 M/uL (4.2-5.4); White Blood Count 5.49 K/uL (4.8-10.8)
[2019-04-08 08:39] LABS: BUN Creatinine Ratio 10.9 (10-20); Creatinine Clr Calc Pharmacy 50.3 ml/min; Est GFR (African American) 95.2; Est GFR (Non-African American) 82.1; Potassium 3.8 mmol/L (3.5-5.1)
[2019-04-08] MEDS: OXYCODONE HCL IR 5 MG TAB (IMMEDIATE RELEASE) PO PRN (14:39)
--- NOTE | 2019-04-08 17:28 | Discharge Summary ---
Date of Service April 08, 2019 Admission HPI Per Admitting Provider The patient is 84-year-old female who is a resident of assisted living facility. She has a recent history of left humerus fracture which is being managed conservatively. She was brought to the emergency room today with complaints of generalized weakness and fatigue for last few days. She has history of chronic cough. The further work-up done in the emergency room shows that patient has right-sided pneumonia. She was started on IV Unasyn and will be admitted for further evaluation and management. Patient history is a poor historian secondary to dementia and metabolic encephalopathy. According to the family, patient is currently a resident of assisted living facility but may need placement to alf home. Principal Diagnosis resolving pna Discharge Exam Constitutional WD/WN, vitals as above Eyes PERRL, conjunctivae normal, anicteric sclerae ENMT external ear and nose normal, oropharynx normal Respiratory diminished but CTAB Cardiovascular RRR, no murmur, no edema Gastrointestinal (Abdomen) normal bowel sounds, soft, nontender, no hepatosplenomegaly Musculoskeletal L shoulder TTP Skin no rashes, warm and dry Psychiatric Orientation: alert, oriented x 3 and oriented to person Discharge Data Allergies Allergy/AdvReac Type Severity Reaction Status Date / Time bupropion [From Wellbutrin] Allergy Mild Unknown Unverified 04/05/19 17:02 hydrochlorothiazide Allergy Mild Unknown Unverified 04/05/19 17:02 [From Avalide] irbesartan [From Avalide] Allergy Mild Unknown Unverified 04/05/19 17:02 roflumilast [From Daliresp] Allergy Mild Unknown Unverified 04/05/19 17:02 denosumab [From Prolia] Allergy Unknown Verified 04/05/19 17:02 tramadol Allergy Unknown Verified 04/05/19 17:02 ciprofloxacin [From Cipro] AdvReac Unknown Unverified 04/05/19 17:02 fentanyl [From Duragesic] AdvReac Hallucinati Verified 04/05/19 17:02 ng NSAIDS (Non-Steroidal AdvReac Unknown Unverified 04/05/19 17:02 Anti-Inflamma Ordered Studies 04/05/19 14:38 CT abd pelvis wo con Stat Hospital Course (1) Weakness generalized: Jennifer is an 84-year-old female with a past medical history of dementia, hypothyroidism, COPD, hypertension, and constipation who presented with several days of generalized weakness, fatigue, and intermittent nonproductive cough. The following was the medical management during stay here: Chronic cough 2/2 aspiration versus slowly resolving pneumonia Recent hospital admission for pneumonia [place] of CTabdomen shows some left-sided pulmonary consolidations versus atelectasis, CXR shows mild alveolar opacities No leukocytosis, normal sats on room air, afebrile. CRP mildly elevated, pro-Jasper within normal limits We Suspected residual, slowly resolving lung changes versus aspiration without acute pneumonia Pt initially started on empiric Unasyn and observe overnight, and was dc'd next day. 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- normal swallowing, no concern for aspiration Delirium -likely 2/2 dehydration, constipation, possibly effects from arm pain and pain meds; now compounded by hospital environment -this was improved at time of d/c -does not show septic/infectious factors -we gave fluids, supportive care, bowel regimen Constipation CTabdomen pelvis shows high stool burden Docusate 100 mg daily as needed MiraLAX 34 g daily Left proximal humeral fracture, nondisplaced Stable, nondisplaced No interval change or displacement from prior imaging No signs of overlying infection or skin breakdown No acute changes management at this time. Pain control with Tylenol 1 g TID daily MARGARITA -Oxycodone 2.5 mg qid prn Morphine 4 mg IV every 4 hours as needed, minimized narcotic use 2/2 constipation COPD Continue budesonide/formoterol 2 puffs twice daily Continue continue p.o. trospium 1 puff daily Albuterol as needed every 4 hours Hypothyroidism Synthroid 100 mcg daily GERD Pantoprazole 40 mg daily hyperlipidemia Pravastatin 40 mg daily Depression/anxiety Citalopram 20 mg p.o. daily DVT Prophylaxis: Heparin 5,000u Q8H. At time of d/c, pt had no other acute concerns or complaints. Total Time Total Time Spent Total Time Spent (In Minutes): 30 Discharge Plan Discharge Items Patient Disposition: Trans Resident Long-Term Care Reason For Visit: PNEUMONIA Discharge Diagnosis: residual pna Activity: As commented below Non-emergency contact: Primary Care Provider Call non-emergency contact if: you have any medication questions, your symptoms worsen and your pain is not controlled Follow-up/Referrals: [facility] [Primary Care Provider] - Diet: Heart Healthy Addtl Attending Provider Instructions: Jennifer is an 84-year-old female with a past medical history of dementia, hypothyroidism, COPD, hypertension, and constipation who presented with several days of generalized weakness, fatigue, and intermittent nonproductive cough. The following was the medical management during stay here: Chronic cough 2/2 aspiration versus slowly resolving pneumonia Recent hospital admission for pneumonia [place] of CTabdomen shows some left-sided pulmonary consolidations versus atelectasis, CXR shows mild alveolar opacities No leukocytosis, normal sats on room air, afebrile. CRP mildly elevated, pro-Jasper within normal limits We Suspected residual, slowly resolving lung changes versus aspiration without acute pneumonia Pt initially started on empiric Unasyn and observe overnight, and was dc'd next day. 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- normal swallowing, no concern for aspiration Delirium -likely 2/2 dehydration, constipation, possibly effects from arm pain and pain meds; now compounded by hospital environment -this was improved at time of d/c -does not show septic/infectious factors -we gave fluids, supportive care, bowel regimen Constipation CTabdomen pelvis shows high stool burden Docusate 100 mg daily as needed MiraLAX 34 g daily Left proximal humeral fracture, nondisplaced Stable, nondisplaced No interval change or displacement from prior imaging No signs of overlying infection or skin breakdown No acute changes management at this time. Pain control with Tylenol 1 g TID daily MARGARITA -Oxycodone 2.5 mg qid prn Morphine 4 mg IV every 4 hours as needed, minimized narcotic use 2/2 constipation COPD Continue budesonide/formoterol 2 puffs twice daily Continue continue p.o. trospium 1 puff daily Albuterol as needed every 4 hours Hypothyroidism Synthroid 100 mcg daily GERD Pantoprazole 40 mg daily hyperlipidemia Pravastatin 40 mg daily Depression/anxiety Citalopram 20 mg p.o. daily DVT Prophylaxis: Heparin 5,000u Q8H. At time of d/c, pt had no other acute concerns or complaints. Pending Studies at Discharge: No Stand-Alone Forms: My [facility] [employer] Skilled Items Patient informed of condition?: Yes DNR: No Discharge Level of Care: Other Communicable Disease: No Discharge Prognosis: Stable Lines: None Urinary Catheter: No Medications and DC Order Prescriptions: Continued loperamide [Imodium A-D] 2 mg capsule 2 mg PO UD PRN (Reason: Diarrhea) RF: 0 pravastatin [Pravachol] 40 mg tablet 40 mg PO DAILY RF: 0 amlodipine [Norvasc] 5 mg tablet 5 mg PO DAILY RF: 0 acetaminophen [Tylenol Extra Strength] 500 mg Tablet 1,000 mg PO TID RF: 0 levothyroxine 100 mcg tablet 100 mcg PO DAILY RF: 0 citalopram [Celexa] 20 mg tablet 20 mg PO DAILY RF: 0 ascorbic acid (vitamin C) [Vitamin C] 250 mg Tablet 250 mg PO DAILY RF: 0 pantoprazole [Protonix] 40 mg tablet,delayed release (DR/EC) 40 mg PO DAILY RF: 0 levalbuterol HCl 1.25 mg/3 mL Solution For Nebulization 1.25 mg INHALATION Q8 PRN (Reason: Shortness Of Breath Or Wheezing) RF: 0 docusate sodium 100 mg Tablet 100 mg PO DAILY PRN (Reason: Constipation) RF: 0 Spiriva with HandiHaler 18 mcg capsule, w/inhalation device 1 cap inhalation CQWK RF: 0 Symbicort 160-4.5 mcg/actuation HFA aerosol inhaler 2 puff inhalation BID RF: 0 Children Multivitamin Tablet,Chewable 1 tab PO DAILY RF: 0 guaifenesin 600 mg tablet extended release 12hr 600 mg PO BID PRN (Reason: cough) Qty: 30 RF: 0 oxycodone 5 mg tablet 5 - 10 mg PO Q4H PRN (Reason: pain) Qty: 14 RF: 0 Discharge Orders: Discharge Order (Routine); Ordered 04/08/19 Ordered By: Corona Holley Admission Data Admit Date/Time: 04/05/19 17:38 Attending Provider: Doug Florian Admit Provider: Reynaldo Lomas Primary Care Provider: [facility], [facility] Other Providers: Reynaldo Lomas ; Yair Altamirano Other Interventions: Discharge Summary Assessment (RN) Last Done: 04/08/19 17:40 Supervising Physician Co-Signing Physician Notes I saw the patient with the resident physician and confirmed stinson portions of history and physical exam. I agree with the impression and plan as noted above. Upon our examination, the patient is seated in bed. Her daughter is bedside. The pain seemed to better improved. The patient himself is alert and oriented. The daughter notes she had a period of disorientation earlier today but overall seems improved. delirium (mixed predominantly metabolic encephalopathy) Improving, multifactorial including dehydration, constipation, and medication side effects. Discussed with patient and daughter that an element of her delirium may simply be related to the fact that she is in the hospital, and this is a vote in favor of returning to her personal custodial rather than to another facility for physical therapy. It looks as if the personal custodial would have all that she needs in terms of ADL assistance, and therapy can be brought in to assist in her recovery. shoulder fx Pain is somewhat improved today Scheduled Tylenol and as needed oxycodone Total time in seeing the patient, discussed with family, and working on discharge was 40 minutes. Resident Activity Tracking Resident Involvement: Resident Care Provided Care Provided: Adult Hospital Medicine
== END 2019-04-08 18:00 | disposition home health service (06) | DRG 391 ==
LOC: ED 14:25 → SUATTDRO 17:38 → 4W 17:38

== ENCOUNTER 2019-11-14 12:01 | Observation (INO) ==
[2019-11-14] MEDS ORDERED: SODIUM CHLORIDE 0.9% 1000ML 1,000 ML IV ONE (12:41)
--- NOTE | 2019-11-14 12:46 | Emergency Department Note ---
Impression & Plan Pneumonia, Acute confusion, Febrile ED Provider Note NAME: ELOISA WANG AGE: 84 SEX: F : 1935 ARRIVES VIA: Walk-In INFORMANT: Patient ED PROVIDER(S): Yair Restrepo DO CHIEF COMPLAINT: Cough and fever HPI: Patient is an 84-year-old female with a past medical history of COPD that presents the ER for cough and change in sputum and confusion. The cough and change in sputum has been present for the past 24 to 48 hours. Fever has been present as well. Daughter notes that otherwise she was doing fairly well. No exposure to anyone with virus. She was referred in by her PCP. Denies any belly pain, nausea, vomiting, diarrhea, no dysuria, urgency or frequency. No headache. No dizziness. Denies any chest pain. No other exacerbating or remitting factors. Confusion started upon arrival to the ER. ROS: See above HPI for pertinent positives & negatives. A total of 10 systems reviewed and were otherwise negative. PAST MEDICAL HISTORY:See Below PAST SURGICAL HISTORY:See Below FAMILY HISTORY:See Below SOCIAL HISTORY:See Below HOME MEDICATIONS:See Below ALLERGIES:See Below VITALS:See Below PHYSICAL EXAMINATION: GENERAL: Sitting up in bed, alert, no acute distress, nontoxic EYE EXAM: normal conjunctiva. PERRL and EOM's grossly intact. OROPHARYNX: no exudate, no erythema, lips, buccal mucosa, and tongue normal and mucous membranes are moist NECK: supple, no nuchal rigidity, no adenopathy, non-tender LUNGS: Clear to auscultation. Normal chest wall mechanics HEART: +ISABELLA, S1 normal and S2 normal ABDOMEN: abdomen soft, non-tender, normo-active bowel sounds, no masses, no rebound or guarding. BACK: Back is symmetrical on inspection and there is no deformity, no midline tenderness, no CVA tenderness. SKIN: no rashes and no bruising UPPER EXTREMITIES: upper extremities are grossly normal. LOWER EXTREMITIES: No pitting edema. NEURO EXAM: Normal sensorium, cranial nerves II-XII grossly intact, normal speech, no gross weakness of arms, no gross weakness of legs. MEDICAL DECISION MAKING: Patient is an 84-year-old female who presents the ER for cough, fever and change in sputum. Confusion started just prior to arrival. IV was established blood work was obtained. She was febrile as well as slightly tachycardic. Labs show a mild leukocytosis 11.3 thousand. No significant anemia. INR was unremarka ble. BMP with LFTs bilirubin was unremarkable. UA was negative with the exception of a small amount of blood. COVID was negative. Chest x-ray with a right midlung pneumonia. Patient was covered with IV antibiotics. She was given IV fluids. With her curb 65 score discussed with hospitalist for admission. Patient was updated at bedside. Triage Nursing notes reviewed. Prior medical records reviewed Vital Signs: reviewed and remarkable for febrile and tachycardic Differential diagnosis: Differential diagnosis includes etiologies such as sepsis, UTI, pneumonia, metabolic, electrolyte abnormalities, cardiac sources, intracerebral event, toxicologic, neurological, as well as others were entertained. ER treatment provided: See below Diagnostics interpreted by me: ECG: Sinus rhythm rate 88 Normal axis No PVCs Normal QTC Cardiac Monitoring: An order was placed for continuous cardiac monitoring. The monitor shows a rate of 81 with sinus rhythm. Laboratory studies: As stated above and show below. Imaging studies: Portable AP upright 1 view of the chest shows focal infiltrate. Consultation(s): Dr. 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 Feels Safe at Home: Yes Smoking Status: Former smoker Second Hand Exposure: No ; Hx Alcohol Use: No Hx Substance Use: No Allergies Allergies Allergy/AdvReac Type Severity Reaction Status Date / Time bupropion [From Wellbutrin] Allergy Mild Unknown Unverified 11/14/19 13:51 hydrochlorothiazide Allergy Mild Unknown Unverified 11/14/19 13:51 [From Avalide] irbesartan [From Avalide] Allergy Mild Unknown Unverified 11/14/19 13:51 roflumilast [From Daliresp] Allergy Mild Unknown Unverified 11/14/19 13:51 denosumab [From Prolia] Allergy Unknown Verified 11/14/19 13:51 tramadol Allergy Unknown Verified 11/14/19 13:51 ciprofloxacin [From Cipro] AdvReac Unknown Unverified 11/14/19 13:51 fentanyl [From Duragesic] AdvReac Hallucinati Verified 11/14/19 13:51 ng NSAIDS (Non-Steroidal AdvReac Unknown Unverified 11/14/19 13:51 Anti-Inflamma Home Meds Home Medications Medication Instructions Recorded Confirmed Children Multivitamin 1 tab PO QAM 03/15/19 11/14/19 Spiriva with HandiHaler 1 cap INHALATION QAM 03/15/19 11/14/19 amlodipine [Norvasc] 5 mg PO QAM 03/15/19 11/14/19 ascorbic acid (vitamin C) [Vitamin 250 mg PO QAM 03/15/19 11/14/19 C] budesonide-formoterol [Symbicort] 2 puff INHALATION BID 03/15/19 11/14/19 citalopram [Celexa] 20 mg PO QAM 03/15/19 11/14/19 levalbuterol HCl 1.25 mg INHALATION Q8 PRN 03/15/19 11/14/19 levothyroxine 100 mcg PO QAM 03/15/19 11/14/19 pantoprazole [Protonix] 40 mg PO BID 03/15/19 11/14/19 pravastatin [Pravachol] 40 mg PO HS 03/15/19 11/14/19 Previous Rx's Medication Instructions Recorded nebulizers #1 ea 04/17/19 Results & Data (ED) Vital Signs Vital Signs - 24 hr 11/14/19 12:04 11/14/19 12:11 11/14/19 13:46 Temperature 37.8 C H Temperature Source Oral Pulse Rate 109 H 91 H Pulse Rate [Apical] Pulse Rate from SpO2 Sensor 90 Pulse Rhythm [Apical] Respiratory Rate 20 23 Respiratory Effort / Characteristics Short of Breath Respiratory Depth Normal Respiratory Pattern Regular Blood Pressure 155/79 H Blood Pressure [Right Arm] Blood Pressure Mean 104 Blood Pressure Mean [Right Arm] Pulse Oximetry 93 97 Oxygen Delivery Method Room Air Sepsis Recent Fever Within 48 Hours No Sepsis Action Taken by Nursing No Action Required 11/14/19 13:50 11/14/19 14:02 11/14/19 14:31 Temperature Temperature Source Pulse Rate 105 H Pulse Rate [Apical] 92 H Pulse Rate from SpO2 Sensor 101 H Pulse Rhythm [Apical] Regular Respiratory Rate 16 20 Respiratory Effort / Characteristics Spontaneous Spontaneous Respiratory Depth Respiratory Pattern Regular Regular Blood Pressure Blood Pressure [Right Arm] 198/92 H Blood Pressure Mean Blood Pressure Mean [Right Arm] 127 Pulse Oximetry 92 Oxygen Delivery Method Room Air Room Air Sepsis Recent Fever Within 48 Hours Sepsis Action Taken by Nursing 11/14/19 14:32 11/14/19 15:00 11/14/19 15:01 Temperature Temperature Source Pulse Rate 99 H 84 83 Pulse Rate [Apical] Pulse Rate from SpO2 Sensor 96 H 83 83 Pulse Rhythm [Apical] Respiratory Rate 27 H 26 H 19 Respiratory Effort / Characteristics Respiratory Depth Respiratory Pattern Blood Pressure 198/92 H 152/69 H Blood Pressure [Right Arm] Blood Pressure Mean 145 105 Blood Pressure Mean [Right Arm] Pulse Oximetry 93 96 95 Oxygen Delivery Method Sepsis Recent Fever Within 48 Hours Sepsis Action Taken by Nursing 11/14/19 15:30 11/14/19 15:31 11/14/19 16:00 Temperature Temperature Source Pulse Rate 84 83 87 Pulse Rate [Apical] 82 Pulse Rate from SpO2 Sensor 84 82 87 Pulse Rhythm [Apical] Respiratory Rate 25 H 18 23 Respiratory Effort / Characteristics Respiratory Depth Respiratory Pattern Blood Pressure 158/76 H 176/90 H Blood Pressure [Right Arm] 158/76 H Blood Pressure Mean 102 110 Blood Pressure Mean [Right Arm] 103 Pulse Oximetry 95 95 96 Oxygen Delivery Method Room Air Sepsis Recent Fever Within 48 Hours Sepsis Action Taken by Nursing 11/14/19 16:01 11/14/19 16:30 11/14/19 16:31 Temperature Temperature Source Pulse Rate 86 85 85 Pulse Rate [Apical] Pulse Rate from SpO2 Sensor 88 85 85 Pulse Rhythm [Apical] Respiratory Rate 26 H 21 28 H Respiratory Effort / Characteristics Respiratory Depth Respiratory Pattern Blood Pressure 161/80 H Blood Pressure [Right Arm] Blood Pressure Mean 97 Blood Pressure Mean [Right Arm] Pulse Oximetry 97 96 96 Oxygen Delivery Method Sepsis Recent Fever Within 48 Hours Sepsis Action Taken by Nursing 11/14/19 17:00 11/14/19 17:01 Temperature Temperature Source Pulse Rate 83 83 Pulse Rate [Apical] Pulse Rate from SpO2 Sensor 83 83 Pulse Rhythm [Apical] Respiratory Rate 21 24 Respiratory Effort / Characteristics Respiratory Depth Respiratory Pattern Blood Pressure 164/78 H Blood Pressure [Right Arm] Blood Pressure Mean 109 Blood Pressure Mean [Right Arm] Pulse Oximetry 95 93 Oxygen Delivery Method Sepsis Recent Fever Within 48 Hours Sepsis Action Taken by Nursing Laboratory Data Result diagrams: 11/14/19 13:20 11/14/19 13:20 Lab Results 11/14/19 11/14/19 11/14/19 Range/Units 13:20 13:20 13:20 WBC 11.27 H (4.8-10.8) K/uL RBC 4.31 (4.2-5.4) M/uL Hgb 13.8 (12.0-16.0) g/dL Hct 41.5 (37-47) % MCV 96.3 (80-100) fL MCH 32.0 (25-34) pg MCHC 33.3 (32-36) g/dL RDW Std Deviation 44.4 (36.4-46.3) fL RDW Coeff of Radhika 12.6 (11.5-14.5) % Plt Count 264 (130-400) K/uL MPV 9.5 (7.4-10.4) fL Immature Gran % (Auto) 0.2 % Neut % (Auto) 79.1 % Lymph % (Auto) 14.4 % [place] % (Auto) 5.6 % Eos % (Auto) 0.3 % Baso % (Auto) 0.4 % Immature Gran # (Auto) 0.02 (0.00-0.02) K/uL Neut # (Auto) 8.93 H (1.4-6.5) K/uL Lymph # (Auto) 1.62 (1.2-3.4) K/uL [place] # (Auto) 0.63 H (0.11-0.59) K/uL Eos # (Auto) 0.03 (0-0.5) K/uL Baso # (Auto) 0.04 (0-0.2) K/uL PT 11.3 (9.0-12.0) Seconds INR 1.1 (0.9-1.1) APTT 28.2 (21.0-31.0) Seconds PTT Ratio 1.0 Sodium 137 (136-145) mmol/L Potassium 3.8 (3.5-5.1) mmol/L Chloride 102 (98-107) mmol/L Carbon Dioxide 30 (21-32) mmol/L Anion Gap 6.0 (3-11) BUN 19 H (7-18) mg/dl Creatinine 0.88 (0.6-1.2) mg/dl Est Cr Clr Drug Dosing Not Reportable Est GFR ( Amer) 70.4 Est GFR (Non-Af Amer) 60.8 BUN/Creatinine Ratio 21.1 H (10-20) Glucose 100 H (70-99) mg/dl Lactate (0.4-2.0) mmol/L Calcium 9.3 (8.5-10.1) mg/dl Magnesium 2.0 (1.8-2.4) mg/dl Total Bilirubin 1.0 (0.2-1) mg/dl AST 20 (15-37) U/L ALT 28 (12-78) U/L Alkaline Phosphatase 117 (45-117) U/L Total Protein 7.8 (6.4-8.2) gm/dl Albumin 4.0 (3.4-5.0) gm/dl Globulin 3.8 (2.5-4.0) gm/dl Albumin/Globulin Ratio 1.0 (0.9-2) Urine Color Urine Appearance (Clear) Urine pH (4.5-7.5) Ur Specific [place] (1.000-1.030) Urine Protein (Negative) Urine Glucose (UA) (Negative) Urine Ketones (Negative) Urine Blood (Negative) Urine Nitrite (Negative) Urine Bilirubin (Negative) Urine Urobilinogen (Negative) Ur Leukocyte Esterase (Negative) Urine WBC (Auto) (0-5) /hpf Urine RBC (Auto) (0-4) /hpf U Hyaline Cast (Auto) (0-5) /lpf U Epithel Cells (Auto) (0-5) /lpf Urine Bacteria (Auto) (Negative) COVID-19 PCR (Negative) SARS-CoV-2 RNA (RT-PCR) 11/14/19 11/14/19 11/14/19 Range/Units 13:20 13:27 13:27 WBC (4.8-10.8) K/uL RBC (4.2-5.4) M/uL Hgb (12.0-16.0) g/dL Hct (37-47) % MCV (80-100) fL MCH (25-34) pg MCHC (32-36) g/dL RDW Std Deviation (36.4-46.3) fL RDW Coeff of Radhika (11.5-14.5) % Plt Count (130-400) K/uL MPV (7.4-10.4) fL Immature Gran % (Auto) % Neut % (Auto) % Lymph % (Auto) % [place] % (Auto) % Eos % (Auto) % Baso % (Auto) % Immature Gran # (Auto) (0.00-0.02) K/uL Neut # (Auto) (1.4-6.5) K/uL Lymph # (Auto) (1.2-3.4) K/uL [place] # (Auto) (0.11-0.59) K/uL Eos # (Auto) (0-0.5) K/uL Baso # (Auto) (0-0.2) K/uL PT (9.0-12.0) Seconds INR (0.9-1.1) APTT (21.0-31.0) Seconds PTT Ratio Sodium (136-145) mmol/L Potassium (3.5-5.1) mmol/L Chloride (98-107) mmol/L Carbon Dioxide (21-32) mmol/L Anion Gap (3-11) BUN (7-18) mg/dl Creatinine (0.6-1.2) mg/dl Est Cr Clr Drug Dosing Est GFR ( Amer) Est GFR (Non-Af Amer) BUN/Creatinine Ratio (10-20) Glucose (70-99) mg/dl Lactate 0.9 (0.4-2.0) mmol/L Calcium (8.5-10.1) mg/dl Magnesium (1.8-2.4) mg/dl Total Bilirubin (0.2-1) mg/dl AST (15-37) U/L ALT (12-78) U/L Alkaline Phosphatase (45-117) U/L Total Protein (6.4-8.2) gm/dl Albumin (3.4-5.0) gm/dl Globulin (2.5-4.0) gm/dl Albumin/Globulin Ratio (0.9-2) Urine Color Urine Appearance (Clear) Urine pH (4.5-7.5) Ur Specific [place] (1.000-1.030) Urine Protein (Negative) Urine Glucose (UA) (Negative) Urine Ketones (Negative) Urine Blood (Negative) Urine Nitrite (Negative) Urine Bilirubin (Negative) Urine Urobilinogen (Negative) Ur Leukocyte Esterase (Negative) Urine WBC (Auto) (0-5) /hpf Urine RBC (Auto) (0-4) /hpf U Hyaline Cast (Auto) (0-5) /lpf U Epithel Cells (Auto) (0-5) /lpf Urine Bacteria (Auto) (Negative) COVID-19 PCR NEGATIVE (Negative) SARS-CoV-2 RNA (RT-PCR) Cancelled 11/14/19 Range/Units 13:39 WBC (4.8-10.8) K/uL RBC (4.2-5.4) M/uL Hgb (12.0-16.0) g/dL Hct (37-47) % MCV (80-100) fL MCH (25-34) pg MCHC (32-36) g/dL RDW Std Deviation (36.4-46.3) fL RDW Coeff of Radhika (11.5-14.5) % Plt Count (130-400) K/uL MPV (7.4-10.4) fL Immature Gran % (Auto) % Neut % (Auto) % Lymph % (Auto) % [place] % (Auto) % Eos % (Auto) % Baso % (Auto) % Immature Gran # (Auto) (0.00-0.02) K/uL Neut # (Auto) (1.4-6.5) K/uL Lymph # (Auto) (1.2-3.4) K/uL [place] # (Auto) (0.11-0.59) K/uL Eos # (Auto) (0-0.5) K/uL Baso # (Auto) (0-0.2) K/uL PT (9.0-12.0) Seconds INR (0.9-1.1) APTT (21.0-31.0) Seconds PTT Ratio Sodium (136-145) mmol/L Potassium (3.5-5.1) mmol/L Chloride (98-107) mmol/L Carbon Dioxide (21-32) mmol/L Anion Gap (3-11) BUN (7-18) mg/dl Creatinine (0.6-1.2) mg/dl Est Cr Clr Drug Dosing Est GFR ( Amer) Est GFR (Non-Af Amer) BUN/Creatinine Ratio (10-20) Glucose (70-99) mg/dl Lactate (0.4-2.0) mmol/L Calcium (8.5-10.1) mg/dl Magnesium (1.8-2.4) mg/dl Total Bilirubin (0.2-1) mg/dl AST (15-37) U/L ALT (12-78) U/L Alkaline Phosphatase (45-117) U/L Total Protein (6.4-8.2) gm/dl Albumin (3.4-5.0) gm/dl Globulin (2.5-4.0) gm/dl Albumin/Globulin Ratio (0.9-2) Urine Color Yellow Urine Appearance Clear (Clear) Urine pH 7.5 (4.5-7.5) Ur Specific [place] 1.015 (1.000-1.030) Urine Protein Negative (Negative) Urine Glucose (UA) Negative (Negative) Urine Ketones Negative (Negative) Urine Blood 1+ H (Negative) Urine Nitrite Negative (Negative) Urine Bilirubin Negative (Negative) Urine Urobilinogen Negative (Negative) Ur Leukocyte Esterase Negative (Negative) Urine WBC (Auto) 1-5 (0-5) /hpf Urine RBC (Auto) 10-30 H (0-4) /hpf U Hyaline Cast (Auto) 0 (0-5) /lpf U Epithel Cells (Auto) 0-5 (0-5) /lpf Urine Bacteria (Auto) Negative (Negative) COVID-19 PCR (Negative) SARS-CoV-2 RNA (RT-PCR) Administered Medications Discontinued Medications Azithromycin (Zithromax) 500 mg PO NOW ONE Stop: 11/14/19 14:39 Last Admin: 11/14/19 15:31 Dose: 500 mg Documented by: [id number] Sodium Chloride (Nss 1000ml) 1,000 mls @ 999 mls/hr IV .Q1H1M ONE Stop: 11/14/19 13:41 Last Infusion: 11/14/19 15:16 Dose: 0 mls/hr Documented by: [id number] Admin: 11/14/19 13:45 Dose: 999 mls/hr Documented by: [id number] Ceftriaxone Sodium (Rocephin) 1,000 mg in 50 mls @ 100 mls/hr IV NOW STA Stop: 11/14/19 15:07 Last Infusion: 11/14/19 16:21 Dose: 0 mls/hr Documented by: [id number] Admin: 11/14/19 15:31 Dose: 100 mls/hr Documented by: [id number] Discharge Plan Visit Data Chief Complaint: Shortness of Breath/Dyspnea Stated Complaint: NOT FEELING WELL, COUGH, COPD ED Provider: Yair Restrepo Discharge Problem: Pneumonia, Acute confusion, Febrile Forms Stand Alone Forms: My [facility] [employer] Prescriptions Prescriptions: No Action (DME) nebulizers misc See Rx Instructions .ROUTE .MEDSUPPLY Qty: 1 RF: 0 pravastatin [Pravachol] 40 mg tablet 40 mg PO HS RF: 0 amlodipine [Norvasc] 5 mg tablet 5 mg PO QAM RF: 0 levothyroxine 100 mcg tablet 100 mcg PO QAM RF: 0 citalopram [Celexa] 20 mg tablet 20 mg PO QAM RF: 0 ascorbic acid (vitamin C) [Vitamin C] 250 mg Tablet 250 mg PO QAM RF: 0 pantoprazole [Protonix] 40 mg tablet,delayed release (DR/EC) 40 mg PO BID RF: 0 levalbuterol HCl 1.25 mg/3 mL Solution For Nebulization 1.25 mg INHALATION Q8 PRN (Reason: Shortness Of Breath Or Wheezing) RF: 0 Spiriva with HandiHaler 18 mcg capsule, w/inhalation device 1 cap inhalation QAM RF: 0 budesonide-formoterol [Symbicort] 160-4.5 mcg/actuation HFA aerosol inhaler 2 puff inhalation BID RF: 0 Children Multivitamin Tablet,Chewable 1 tab PO QAM RF: 0 Discharge Problem: Pneumonia Qualifiers: Pneumonia type: due to unspecified organism Laterality: unspecified laterality Lung location: unspecified part of lung Qualified Code(s): J18.9 - Pneumonia, unspecified organism Febrile Qualifiers: Fever type: unspecified Qualified Code(s): R50.9 - Fever, unspecified
[2019-11-14 13:38] LABS: Basophils # (auto) 0.04 K/uL (0-0.2); Basophils % (auto) 0.4 %; Eosinophils # (auto) 0.03 K/uL (0-0.5); Eosinophils % (auto) 0.3 %; Hematocrit (blood only) 41.5 % (37-47); Hemoglobin 13.8 g/dL (12.0-16.0); Immature Granulocytes # (auto) 0.02 K/uL (0.00-0.02); Immature Granulocytes % (auto) 0.2 %; Lymphocytes # (auto) 1.62 K/uL (1.2-3.4); Lymphocytes % (auto) 14.4 %; Mean Corpuscular Hgb Conc 33.3 g/dL (32-36); Mean Corpuscular Volume 96.3 fL (80-100); Mean Platelet Volume 9.5 fL (7.4-10.4); Monocytes # (auto) 0.63 K/uL (0.11-0.59); Monocytes % (auto) 5.6 %; Neutrophils # (auto) 8.93 K/uL (1.4-6.5); Neutrophils % (auto) 79.1 %; Platelet Count 264 K/uL (130-400); RDW Coefficient of Variation 12.6 % (11.5-14.5); RDW Standard Deviation 44.4 fL (36.4-46.3); Red Blood Count 4.31 M/uL (4.2-5.4); White Blood Count 11.27 K/uL (4.8-10.8)
[2019-11-14 13:49] LABS: INR 1.1 (0.9-1.1); Partial Thromboplastin Time 28.2 Seconds (21.0-31.0); Prothrombin Time 11.3 Seconds (9.0-12.0)
[2019-11-14 13:51] LABS: Alanine Aminotransferase 28 U/L (12-78); Aspartate Aminotransferase 20 U/L (15-37); BUN Creatinine Ratio 21.1 (10-20); Blood Urea Nitrogen 19 mg/dl (7-18); Calcium 9.3 mg/dl (8.5-10.1); Carbon Dioxide 30 mmol/L (21-32); Chloride 102 mmol/L (98-107); Est GFR (African American) 70.4; Est GFR (Non-African American) 60.8; Glucose 100 mg/dl (70-99); Potassium 3.8 mmol/L (3.5-5.1); Sodium 137 mmol/L (136-145)
[2019-11-14 13:54] LABS: Alkaline Phosphatase 117 U/L (45-117); Globulin 3.8 gm/dl (2.5-4.0); Total Protein 7.8 gm/dl (6.4-8.2)
--- NOTE | 2019-11-14 14:02 | XRay Report ---
XR chest 1V portable HISTORY: 84 years-old Female SEPSIS acute sepsis COMPARISON: Chest radiograph 04/05/2019 TECHNIQUE: Portable AP view of the chest FINDINGS: Cardiac silhouette is mildly enlarged, unchanged. Subcentimeter calcified granuloma of the lateral le ft lung base. Calcified plaque the thoracic aortic arch. Eventration of the right hemidiaphragm. Ther e is improved aeration of the medial right lung base. Chronic pleural thickening of the lung apices w ith chronic interstitial coarsening. No pneumothorax, pleural effusion or overt pulmonary edema. Ther e are new ill-defined opacities of the right suprahilar lung. Healed remote fracture deformity of the proximal left humerus. Degenerative changes of the shoulders and spine. IMPRESSION: Ill-defined airspace opacities of the right suprahilar lung are suspicious for pneumonia in the appropriate clinical setting. Follow-up imaging after treatment course is recommended to docum ent complete resolution. ACT 112: Negative or not required by law. The above report was generated using voice recognition software. It may contain grammatical, syntax o r spelling errors. Electronically signed by: Oscar Major M.D. 11/14/2019 2:01 PM
[2019-11-14 14:33] LABS: Appearance Urine Clear (Clear); Bacteria Urine Automated Negative (Negative); Bilirubin Urine Negative (Negative); Blood Urine 1+ (Negative); Cast Urine Automated 0 /lpf (0-5); Color Urine Yellow; Epithelial Cell Urine Auto 0-5 /lpf (0-5); Glucose Urine UA Negative (Negative); Ketones Urine Negative (Negative); Leukocyte Esterase Urine Negative (Negative); Nitrite Urine Negative (Negative); Protein Urine Negative (Negative); Specific Gravity Urine 1.015 (1.000-1.030); Urobilinogen Urine Negative (Negative); pH Urine 7.5 (4.5-7.5)
[2019-11-14] MEDS ORDERED: AZITHROMYCIN 250 MG TAB PO ONE (14:38)
[2019-11-14] MEDS ORDERED: cefTRIAXone SODIUM 1,000 MG/50 ML BAG IV STA (14:38)
--- NOTE | 2019-11-14 16:50 | History & Physical Report ---
Date of Service November 14, 2019 Assessment & Plan (1) Community acquired pneumonia: CURB 65 - 2 (confusion and age, borderline BUN) Continue Ceftriaxone + azithromycin Duonebs, incentive spirometry, flutter valve COVID-19 negative Patient lives alone therefore also concern about her managing at home (2) COPD (chronic obstructive pulmonary disease): without exacerbation Continue routine home inhalers No need for steroids at this stage (3) Hypertension: Continue amlodipine 5mg PO daily (4) Murmur, cardiac: Known Mild-moderate aortic stenosis on prior echo. No associated symptoms of this (5) DVT prophylaxis: Given expected short duration of stay and mobile will hold of chemical VTE prophylaxis currently. Consider starting if staying another night No SCDs due to falls risk and risk of delirium Admission and Anticipated Discharge Date Admission Date: 11/14/2019 Anticipated date of discharge: 11/15/19 History of Present Illness Chief Complaint: Shortness of breath, cough, fever Primary Care Provider: GEOFF Brian Jennifer Rodriguez is a delightful 84 year old female with COPD (?alpha 1 antitrypsin def.) who presents to the ER due to confusion, change in her usual cough with increased sputum production. In the ER she was also noted to have a fever. Daughter at bedside notes she has been feeling generally unwell and fatigued for the last 2 days. However today she was noted to have a change in her usual cough, coughing up white phlegm (more so than usual). On arrival to the ER she was also noted to be very confused although her daughter notes that this can happen to her frequently when she goes to different environments and has a history of becoming delirious in hospital. In the ER workup was remarkable for CXR with right suprahilar infiltrates and elevated WBC consistent with pneumonia for which she has a significant history of having recurrent pneumonia. She was given ceftriaxone and azithromycin and when I saw her in the ER her confusion appears to have now resolved. She lives alone and is relatively independent however her daughter lives only three minutes away. No known COVID-19 exposure. Allergies Allergy/AdvReac Type Severity Reaction Status Date / Time bupropion [From Wellbutrin] Allergy Mild Unknown Unverified 11/14/19 13:51 hydrochlorothiazide Allergy Mild Unknown Unverified 11/14/19 13:51 [From Avalide] irbesartan [From Avalide] Allergy Mild Unknown Unverified 11/14/19 13:51 roflumilast [From Daliresp] Allergy Mild Unknown Unverified 11/14/19 13:51 denosumab [From Prolia] Allergy Unknown Verified 11/14/19 13:51 tramadol Allergy Unknown Verified 11/14/19 13:51 ciprofloxacin [From Cipro] AdvReac Unknown Unverified 11/14/19 13:51 fentanyl [From Duragesic] AdvReac Hallucinati Verified 11/14/19 13:51 ng NSAIDS (Non-Steroidal AdvReac Unknown Unverified 11/14/19 13:51 Anti-Inflamma Home Medications Home Medications Medication Instructions Recorded Confirmed Type Children Multivitamin 1 tab PO QAM 03/15/19 11/14/19 History Spiriva with HandiHaler 1 cap INHALATION QAM 03/15/19 11/14/19 History amlodipine [Norvasc] 5 mg PO QAM 03/15/19 11/14/19 History ascorbic acid (vitamin C) [Vitamin 250 mg PO QAM 03/15/19 11/14/19 History C] budesonide-formoterol [Symbicort] 2 puff INHALATION BID 03/15/19 11/14/19 History citalopram [Celexa] 20 mg PO QAM 03/15/19 11/14/19 History levalbuterol HCl 1.25 mg INHALATION Q8 PRN 03/15/19 11/14/19 History levothyroxine 100 mcg PO QAM 03/15/19 11/14/19 History pantoprazole [Protonix] 40 mg PO BID 03/15/19 11/14/19 History pravastatin [Pravachol] 40 mg PO HS 03/15/19 11/14/19 History nebulizers #1 ea 04/17/19 11/14/19 Rx Past Med/Surg History Social History Preferred Language: Eritrean Communication Ability: Effective School Coordinator Required: No Beliefs That Will Affect Care: None marital status: / Current Living Situation: Personal Care Facility Current Living Situation Comment: [facility] current occupational status: retired Other Information That Helps Us Care for You: No other: 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 Feels Safe at Home: Yes Safety Concerns: Feels Safe At This Time Smoking Status: Former smoker Smoking End Date: "many many years ago" ; Second Hand Exposure: No ; Hx Alcohol Use: No Hx Substance Use: No Review of Systems Review of Systems: All systems reviewed & are unremarkable except as noted in HPI & below Physical Exam Constitutional: well developed and + frail appearing; no acute distress Eyes: + anicteric sclerae; normal pupil size ENMT: external ear and nose normal, oropharynx normal Neck: trachea midline, no thyromegaly Respiratory: normal respiratory effort, + cough (occcasional) and able to speak in complete sentences; no respiratory distress, no labored breathing and does not use accessory muscles Auscultation: + diminished lung sounds (throughout poor inspiratory effort) and + crackles (right sided on back); no rhonchi and no wheezes Cardiovascular: Rate/Rhythm: regular rate and regular rhythm Heart Sounds: normal S2 and + murmur (systolic LUSB and loudest in apex) Vessels: no JVD Extremities: normal capillary refill; no calf tenderness and no pedal edema Gastrointestinal (Abdomen): normal bowel sounds, soft, nontender, no hepatosplenomegaly Musculoskeletal: no cyanosis or clubbing, extremities motor strength 5/5 Skin: no rashes, warm and dry Neurologic: moves all extremities and awake; no focal motor deficits and not confused (reportedly confused on arrival to ER) Speech / Cognition: normal speech Motor/Sensory: no tremor and no pronator drift Psychiatric: A+Ox3, euthymic affect Genitourinary: no CVA tenderness Lymphatic: no cervical or axillary lymphadenopathy Results & Data Results & Data ([facility]) Vital Signs (Past 12 Hours) Vital Signs Temp Pulse Pulse Resp BP BP Pulse Ox 11/14/19 15:31 82 19 158/76 H 95 11/14/19 15:01 83 19 95 11/14/19 15:00 84 26 H 152/69 H 96 11/14/19 14:32 99 H 27 H 198/92 H 93 11/14/19 14:31 105 H 20 11/14/19 14:02 92 H 16 198/92 H 92 11/14/19 13:46 91 H 23 97 11/14/19 12:11 37.8 C H 11/14/19 12:04 109 H 20 155/79 H 93 Diagnostic Findings XR chest 1V portable IMPRESSION: Ill-defined airspace opacities of the right suprahilar lung are suspicious for pneumonia in the appropriate clinical setting. Follow-up imaging after treatment course is recommended to document complete resolution. ECG Indication: altered mental status (confusion on arrival to ER) Rate (beats per minute): 88 Rhythm: normal sinus Findings: no acute ischemic change Comparison ECG Date: from (04/05/2019) Change: no significant change Code Status & VTE Plan Code Status All treatment outside of a cardiac arrest VTE Prophylaxis Plan VTE Prophylaxis will be ordered: No Reason for no VTE drug order: Treatment not indicated Reason for no VTE mechanical prophylaxis: Treatment not indicated PG Care Time/CCT Total # of Minutes Spent Total Time Spent with Patient: Total time spent is greater than 50% in coordination of care (as documented) at patient's floor/unit and/or counseling patient: Coding Level of Care Code 09353 OBS Care - Level 2 Diagnoses Community acquired pneumonia J18.9 COPD (chronic obstructive pulmonary disease) J44.9 Hypertension I10 Hypertension type: essential hypertension Murmur, cardiac R01.1 DVT prophylaxis Z29.9 (1) Hypertension Hypertension type: essential hypertension Qualified Code(s): I10 - Essential (primary) hypertension
[2019-11-14] MEDS ORDERED: ONDANSETRON INJ 2 MG/ML 2 ML VIAL ONE (18:05)
[2019-11-14] MEDS ORDERED: ACETAMINOPHEN 325 MG TAB PO PRN (18:28)
[2019-11-14] MEDS ORDERED: ALUMINUM/MAGNESIUM SUSP 30 ML UDC PO PRN (18:28)
[2019-11-14] MEDS ORDERED: MAGNESIUM HYDROXIDE SUSP 30 ML UDC PO PRN (18:28)
[2019-11-14] MEDS ORDERED: POLYETHYLENE (MIRALAX) 17 GM PACK PO PRN (18:28)
[2019-11-14] MEDS ORDERED: ONDANSETRON INJ 2 MG/ML 2 ML VIAL IV PRN (18:28)
[2019-11-14] MEDS: ALBUT/IPRATROP 3MG/0.5MG NEB 3 ML VIAL NEB SCH (19:24)
[2019-11-14] MEDS: PRAVASTATIN SOD 40 MG TAB PO SCH (20:59)
[2019-11-14] MEDS: PANTOprazole 40 MG TAB PO SCH (20:59)
[2019-11-15] MEDS: LEVOTHYROXINE SODIUM 100 MCG TABLET PO SCH (06:04)
--- NOTE | 2019-11-15 06:33 | Electrocardiogram Report ---
Test Reason : Blood Pressure : / mmHG Vent. Rate : 088 BPM Atrial Rate : 088 BPM P-R Int : 142 ms QRS Dur : 070 ms QT Int : 380 ms P-R-T Axes : 065 -06 029 degrees QTc Int : 459 ms Normal sinus rhythm Septal infarct , age undetermined Abnormal ECG When compared with ECG of 05-APR-2019 15:08, No significant change was found Confirmed by Tres Higuera ([id number]) on 11/15/2019 6:32:54 AM Referred By: Berna Morton Confirmed By:Tres Higuera
[2019-11-15] MEDS: ALBUT/IPRATROP 3MG/0.5MG NEB 3 ML VIAL NEB SCH ×2 (07:29→11:09)
[2019-11-15] MEDS: FLINTSTONES COMPLETE CHEWABLE TAB PO SCH (08:42)
[2019-11-15] MEDS: PANTOprazole 40 MG TAB PO SCH ×2 (08:42→20:15)
[2019-11-15] MEDS: AZITHROMYCIN 250 MG TAB PO SCH (08:42)
[2019-11-15] MEDS: AMLODIPINE BESYLATE 5 MG TAB PO SCH (08:42)
[2019-11-15] MEDS: FLUTICASONE/VILANTEROL 100/25MCG 14 PUFFS/INHALER INH SCH (08:43)
[2019-11-15] MEDS: CITALOPRAM 20 MG TAB PO SCH (08:43)
[2019-11-15] MEDS: UMECLIDINIUM BROMIDE 62.5MCG/BLISTER 7 PUFFS/INHALER INH SCH (08:43)
[2019-11-15] MEDS: ASCORBIC ACID 500 MG TAB PO SCH (08:44)
[2019-11-15 09:21] LABS: Basophils # (auto) 0.03 K/uL (0-0.2); Basophils % (auto) 0.3 %; Eosinophils # (auto) 0.09 K/uL (0-0.5); Hematocrit (blood only) 37.2 % (37-47); Immature Granulocytes # (auto) 0.02 K/uL (0.00-0.02); Immature Granulocytes % (auto) 0.2 %; Lymphocytes # (auto) 3.22 K/uL (1.2-3.4); Lymphocytes % (auto) 35.1 %; Mean Corpuscular Hemoglobin 31.4 pg (25-34); Mean Corpuscular Hgb Conc 32.3 g/dL (32-36); Mean Corpuscular Volume 97.4 fL (80-100); Mean Platelet Volume 9.8 fL (7.4-10.4); Monocytes # (auto) 0.69 K/uL (0.11-0.59); Monocytes % (auto) 7.5 %; Neutrophils # (auto) 5.12 K/uL (1.4-6.5); Neutrophils % (auto) 55.9 %; Platelet Count 256 K/uL (130-400); RDW Standard Deviation 46.5 fL (36.4-46.3); Red Blood Count 3.82 M/uL (4.2-5.4); White Blood Count 9.17 K/uL (4.8-10.8)
[2019-11-15 09:57] LABS: BUN Creatinine Ratio 16.4 (10-20); Blood Urea Nitrogen 14 mg/dl (7-18); Calcium 8.9 mg/dl (8.5-10.1); Carbon Dioxide 30 mmol/L (21-32); Chloride 106 mmol/L (98-107); Est GFR (African American) 72.4; Est GFR (Non-African American) 62.5; Glucose 104 mg/dl (70-99); Potassium 3.9 mmol/L (3.5-5.1); Sodium 142 mmol/L (136-145)
[2019-11-15] MEDS ORDERED: ALBUT/IPRATROP 3MG/0.5MG NEB 3 ML VIAL NEB PRN (11:58)
--- NOTE | 2019-11-15 12:55 | Hospitalist Progress Note ---
Date of Service November 15, 2019 Assessment & Plan (1) Community acquired pneumonia: CURB 65 - 2 (confusion and age, borderline BUN) at the time of admission treat with Ceftriaxone + azithromycin 250mg daily Duonebs, incentive spirometry, flutter valve COVID-19 negative Patient lives alone, still a little weak but improving, needs to eat and drink more spoke with her daughter, plan for d/c to home tomorrow around lunch (2) COPD (chronic obstructive pulmonary disease): without exacerbation Continue routine home inhalers No need for steroids at this stage faint expiratory wheeze, no signs of distress (3) Hypertension: Continue amlodipine 5mg PO daily (4) Murmur, cardiac: Known Mild-moderate aortic stenosis on prior echo. No associated symptoms of this (5) DVT prophylaxis: will give a dose of Lovenox now since she will be here overnight again Admission and Anticipated Discharge Date Admission Date: November 14, 2019 Anticipated date of discharge: 11/16/19 Subjective patient doing well today, no longer confused, breathing well, no fever, no hypoxia reviewed labs, WBC down to normal from 12k BMP is normal she is still not eating or drinking very well, feels more weak than normal she lives alone, walked with PT this morning discussed with her and her family, will keep in hospital this evening for another dose of Rocephin IV plan for discharge tomorrow around lunch Review of Systems Review of Systems: All systems reviewed & are unremarkable except as noted in HPI & below Physical Exam Constitutional: well developed and + thin; no acute distress Eyes: PERRL, conjunctivae normal, anicteric sclerae ENMT: external ear and nose normal, oropharynx normal Neck: trachea midline, no thyromegaly Respiratory: normal respiratory effort and + cough; no labored breathing Auscultation: + crackles (right upper lobe) and + wheezes (faint, end of exhalation) Cardiovascular: RRR, no murmur, no edema Gastrointestinal (Abdomen): normal bowel sounds, soft, nontender, no hepatosplenomegaly Musculoskeletal: no cyanosis or clubbing, extremities motor strength 5/5 Skin: no rashes, warm and dry Neurologic: patellar DTR's 2+ bilat, sensation intact and PERRL, EOMI, accommodation nl, no face palsy, no dysarthria Psychiatric: A+Ox3, euthymic affect Lymphatic: no cervical or axillary lymphadenopathy Results & Data Results & Data ([facility]) Vital Signs (Past 12 Hours) Vital Signs Temp Pulse Resp BP Pulse Ox 11/15/19 11:13 82 16 94 11/15/19 07:32 73 16 93 11/15/19 07:31 37.0 C 74 18 127/61 92 11/15/19 02:42 37 C 83 128/60 92 Laboratory Results Laboratory Results - last 24 hr 11/14/19 11/14/19 11/14/19 13:20 13:20 13:20 WBC 11.27 H RBC 4.31 Hgb 13.8 Hct 41.5 MCV 96.3 MCH 32.0 MCHC 33.3 RDW Std Deviation 44.4 RDW Coeff of Radhika 12.6 Plt Count 264 MPV 9.5 Immature Gran % (Auto) 0.2 Neut % (Auto) 79.1 Lymph % (Auto) 14.4 Thomas % (Auto) 5.6 Eos % (Auto) 0.3 Baso % (Auto) 0.4 Immature Gran # (Auto) 0.02 Neut # (Auto) 8.93 H Lymph # (Auto) 1.62 Thomas # (Auto) 0.63 H Eos # (Auto) 0.03 Baso # (Auto) 0.04 PT 11.3 INR 1.1 APTT 28.2 PTT Ratio 1.0 Sodium 137 Potassium 3.8 Chloride 102 Carbon Dioxide 30 Anion Gap 6.0 BUN 19 H Creatinine 0.88 Est Cr Clr Drug Dosing Not Reportable Est GFR ( Amer) 70.4 Est GFR (Non-Af Amer) 60.8 BUN/Creatinine Ratio 21.1 H Glucose 100 H Lactate Calcium 9.3 Magnesium 2.0 Total Bilirubin 1.0 AST 20 ALT 28 Alkaline Phosphatase 117 Total Protein 7.8 Albumin 4.0 Globulin 3.8 Albumin/Globulin Ratio 1.0 Urine Color Urine Appearance Urine pH Ur Specific Gaastra Urine Protein Urine Glucose (UA) Urine Ketones Urine Blood Urine Nitrite Urine Bilirubin Urine Urobilinogen Ur Leukocyte Esterase Urine WBC (Auto) Urine RBC (Auto) U Hyaline Cast (Auto) U Epithel Cells (Auto) Urine Bacteria (Auto) COVID-19 PCR SARS-CoV-2 RNA (RT-PCR) 11/14/19 11/14/19 11/14/19 13:20 13:27 13:27 WBC RBC Hgb Hct MCV MCH MCHC RDW Std Deviation RDW Coeff of Radhika Plt Count MPV Immature Gran % (Auto) Neut % (Auto) Lymph % (Auto) Thomas % (Auto) Eos % (Auto) Baso % (Auto) Immature Gran # (Auto) Neut # (Auto) Lymph # (Auto) Thomas # (Auto) Eos # (Auto) Baso # (Auto) PT INR APTT PTT Ratio Sodium Potassium Chloride Carbon Dioxide Anion Gap BUN Creatinine Est Cr Clr Drug Dosing Est GFR ( Amer) Est GFR (Non-Af Amer) BUN/Creatinine Ratio Glucose Lactate 0.9 Calcium Magnesium Total Bilirubin AST ALT Alkaline Phosphatase Total Protein Albumin Globulin Albumin/Globulin Ratio Urine Color Urine Appearance Urine pH Ur Specific Ga[place]ra Urine Protein Urine Glucose (UA) Urine Ketones Urine Blood Urine Nitrite Urine Bilirubin Urine Urobilinogen Ur Leukocyte Esterase Urine WBC (Auto) Urine RBC (Auto) U Hyaline Cast (Auto) U Epithel Cells (Auto) Urine Bacteria (Auto) COVID-19 PCR NEGATIVE SARS-CoV-2 RNA (RT-PCR) Cancelled 11/14/19 11/15/19 11/15/19 13:39 08:13 08:13 WBC 9.17 RBC 3.82 L Hgb 12.0 Hct 37.2 MCV 97.4 MCH 31.4 MCHC 32.3 RDW Std Deviation 46.5 H RDW Coeff of Radhika 13.0 Plt Count 256 MPV 9.8 Immature Gran % (Auto) 0.2 Neut % (Auto) 55.9 Lymph % (Auto) 35.1 Thomas % (Auto) 7.5 Eos % (Auto) 1.0 Baso % (Auto) 0.3 Immature Gran # (Auto) 0.02 Neut # (Auto) 5.12 Lymph # (Auto) 3.22 Thomas # (Auto) 0.69 H Eos # (Auto) 0.09 Baso # (Auto) 0.03 PT INR APTT PTT Ratio Sodium 142 Potassium 3.9 Chloride 106 Carbon Dioxide 30 Anion Gap 6.0 BUN 14 Creatinine 0.86 Est Cr Clr Drug Dosing Not Reportable Est GFR ( Amer) 72.4 Est GFR (Non-Af Amer) 62.5 BUN/Creatinine Ratio 16.4 Glucose 104 H Lactate Calcium 8.9 Magnesium Total Bilirubin AST ALT Alkaline Phosphatase Total Protein Albumin Globulin Albumin/Globulin Ratio Urine Color Yellow Urine Appearance Clear Urine pH 7.5 Ur Specific Gaastra 1.015 Urine Protein Negative Urine Glucose (UA) Negative Urine Ketones Negative Urine Blood 1+ H Urine Nitrite Negative Urine Bilirubin Negative Urine Urobilinogen Negative Ur Leukocyte Esterase Negative Urine WBC (Auto) 1-5 Urine RBC (Auto) 10-30 H U Hyaline Cast (Auto) 0 U Epithel Cells (Auto) 0-5 Urine Bacteria (Auto) Negative COVID-19 PCR SARS-CoV-2 RNA (RT-PCR) Medications Administered Current Inpatient Medications Acetaminophen (Tylenol) 650 mg PO Q4H PRN PRN Reason: pain/fever Stop: 12/14/19 18:27 Al Hydrox/Mg Hydrox/Simethicone (Maalox) 30 ml PO Q6H PRN PRN Reason: Dyspepsia Stop: 12/14/19 18:27 Albuterol (Duoneb) 3 ml NEB QIDR PRN PRN Reason: Shortness Of Breath Or Wheezing Stop: 12/14/19 18:59 Amlodipine Besylate (Norvasc) 5 mg PO [facility] Stop: 12/15/19 08:59 Last Admin: 11/15/19 08:42 Dose: 5 mg Documented by: Ascorbic Acid (Vitamin C) [facility] Stop: 12/15/19 08:59 Last Admin: 11/15/19 08:44 Dose: 250 mg Documented by: Azithromycin (Zithromax) [facility] Stop: 11/19/19 08:59 Last Admin: 11/15/19 08:42 Dose: 250 mg Documented by: Citalopram Hydrobromide (Celexa) 20 mg PO [facility] Stop: 12/15/19 08:59 Last Admin: 11/15/19 08:43 Dose: 20 mg Documented by: Fluticasone/Vilanterol (Breo Ellipta 100/25 Mcg Inh) 1 puffs INH DAILY [facility]; Protocol Stop: 12/15/19 08:59 Last Admin: 11/15/19 08:43 Dose: 1 puffs Documented by: Ceftriaxone Sodium 1,000 mg/ (Dextrose) 50 mls @ 100 mls/hr IV Q24H [facility]; P rotocol Stop: 11/20/19 15:59 [facility] Stop: 12/15/19 06:29 Last Admin: 11/15/19 06:04 Dose: 100 mcg Documented by: Magnesium Hydroxide (Milk Of Magnesia) 30 ml PO Q6H PRN PRN Reason: Constipation Stop: 12/14/19 18:27 Multivitamins/Folic Acid/Vitamin C (Flintstones Complete Chew Tab) 1 tab PO QAM [facility] Stop: 12/15/19 08:59 Last Admin: 11/15/19 08:42 Dose: 1 tab Documented by: Ondansetron HCl (Zofran) 4 mg IV Q6H PRN PRN Reason: Nausea Stop: 12/14/19 18:27 Pantoprazole Sodium (Protonix) 40 mg PO BID MARGARITA Stop: 12/14/19 20:59 Last Admin: 11/15/19 08:42 Dose: 40 mg Documented by: Polyethylene Glycol (Miralax Powder Packet) 17 gm PO DAILY PRN PRN Reason: Constipation Stop: 12/14/19 18:27 Pravastatin Sodium (Pravachol) 40 mg PO HS [facility] Stop: 12/14/19 20:59 Last Admin: 11/14/19 20:59 Dose: 40 mg Documented by: Umeclidinium [place] (Incruse Ellipta) 1 puffs [facility]; Protocol Stop: 12/15/19 08:59 Last Admin: 11/15/19 08:43 Dose: 1 puffs Documented by: PG Care Time/CCT Total # of Minutes Spent Total Time Spent with Patient: Total time spent is greater than 50% in coordination of care (as documented) at patient's floor/unit and/or counseling patient: Coding Level of Care Code 37277 Subseq Obs Care Lvl 2 Diagnoses Community acquired pneumonia J18.9 COPD (chronic obstructive pulmonary disease) J44.9 Hypertension I10 Hypertension type: essential hypertension Murmur, cardiac R01.1 DVT prophylaxis Z29.9 (1) Hypertension Hypertension type: essential hypertension Qualified Code(s): I10 - Essential (primary) hypertension
[2019-11-15] MEDS ORDERED: ENOXAPARIN INJ 30 MG/0.3 ML SYR SQ ONE (13:15)
[2019-11-15] MEDS ORDERED: cefTRIAXone SODIUM 1,000 MG in DEXTROSE 5% 50 ML IV SCH (15:30)
[2019-11-15] MEDS: PRAVASTATIN SOD 40 MG TAB PO SCH (20:15)
[2019-11-16] MEDS: LEVOTHYROXINE SODIUM 100 MCG TABLET PO SCH (06:01)
[2019-11-16] MEDS: FLINTSTONES COMPLETE CHEWABLE TAB PO SCH (08:13)
[2019-11-16] MEDS: ASCORBIC ACID 500 MG TAB PO SCH (08:13)
[2019-11-16] MEDS: CITALOPRAM 20 MG TAB PO SCH (08:13)
[2019-11-16] MEDS: UMECLIDINIUM BROMIDE 62.5MCG/BLISTER 7 PUFFS/INHALER INH SCH (08:14)
[2019-11-16] MEDS: AMLODIPINE BESYLATE 5 MG TAB PO SCH (08:14)
[2019-11-16] MEDS: PANTOprazole 40 MG TAB PO SCH (08:14)
[2019-11-16] MEDS: AZITHROMYCIN 250 MG TAB PO SCH (08:14)
[2019-11-16] MEDS: FLUTICASONE/VILANTEROL 100/25MCG 14 PUFFS/INHALER INH SCH (08:15)
--- NOTE | 2019-11-16 09:41 | Discharge Summary ---
Date of Service November 16, 2019 Admission HPI Per Admitting Provider Jennifer Rodriguez is a delightful 84 year old female with COPD (?alpha 1 antitrypsin def.) who presents to the ER due to confusion, change in her usual cough with increased sputum production. In the ER she was also noted to have a fever. Daughter at bedside notes she has been feeling generally unwell and fatigued for the last 2 days. However today she was noted to have a change in her usual cough, coughing up white phlegm (more so than usual). On arrival to the ER she was also noted to be very confused although her daughter notes that this can happen to her frequently when she goes to different environments and has a history of becoming delirious in hospital. In the ER workup was remarkable for CXR with right suprahilar infiltrates and elevated WBC consistent with pneumonia for which she has a significant history of having recurrent pneumonia. She was given ceftriaxone and azithromycin and when I saw her in the ER her confusion appears to have now resolved. She lives alone and is relatively independent however her daughter lives only three minutes away. No known COVID-19 exposure. Principal Diagnosis Community Acquired Pneumonia Discharge Exam Constitutional well developed and + thin; no acute distress Eyes PERRL, conjunctivae normal, anicteric sclerae ENMT external ear and nose normal, oropharynx normal Neck trachea midline, no thyromegaly Respiratory normal respiratory effort and + cough; no labored breathing Auscultation: lungs clear to auscultation bilaterally Cardiovascular Rate/Rhythm: regular rate and regular rhythm Heart Sounds: normal S1, normal S2 and + murmur (systolic) Extremities: normal capillary refill; no edema Gastrointestinal (Abdomen) normal bowel sounds, soft, nontender, no hepatosplenomegaly Musculoskeletal no cyanosis or clubbing, extremities motor strength 5/5 Skin no rashes, warm and dry Neurologic patellar DTR's 2+ bilat, sensation intact and PERRL, EOMI, accommodation nl, no face palsy, no dysarthria Psychiatric A+Ox3, euthymic affect Lymphatic no cervical or axillary lymphadenopathy Discharge Data Allergies Allergy/AdvReac Type Severity Reaction Status Date / Time bupropion [From Wellbutrin] Allergy Mild Unknown Unverified 11/14/19 13:51 hydrochlorothiazide Allergy Mild Unknown Unverified 11/14/19 13:51 [From Avalide] irbesartan [From Avalide] Allergy Mild Unknown Unverified 11/14/19 13:51 roflumilast [From Daliresp] Allergy Mild Unknown Unverified 11/14/19 13:51 denosumab [From Prolia] Allergy Unknown Verified 11/14/19 13:51 tramadol Allergy Unknown Verified 11/14/19 13:51 ciprofloxacin [From Cipro] AdvReac Unknown Unverified 11/14/19 13:51 fentanyl [From Duragesic] AdvReac Hallucinati Verified 11/14/19 13:51 ng NSAIDS (Non-Steroidal AdvReac Unknown Unverified 11/14/19 13:51 Anti-Inflamma Consultations 11/14/19 14:38 ED Decision to Admit Stat 11/14/19 15:12 ED Decision to Admit Stat Hospital Course (1) Community acquired pneumonia: CURB 65 - 2 (confusion and age, borderline BUN) at the time of admission treated with Ceftriaxone + azithromycin 250mg daily Duonebs, incentive spirometry, flutter valve COVID-19 negative Patient lives alone, did well with therapy, walked 200ft independently d/c home on Cefdinir 300mg BID x 5 days, Zithromax 250mg daily x 3 days stay well hydrated, well nourished follow up PCP in one week (2) COPD (chronic obstructive pulmonary disease): without exacerbation Continue routine home inhalers No need for steroids at this stage faint expiratory wheeze, no signs of distress (3) Hypertension: Continue amlodipine 5mg PO daily (4) Murmur, cardiac: Known Mild-moderate aortic stenosis on prior echo. No associated symptoms of this (5) DVT prophylaxis: will give a dose of Lovenox now since she will be here overnight again Total Time Total Time Spent Total Time Spent (In Minutes): 25 Total Time Includes: Examination of the Patient, Discharge Planning and Medication Reconciliation Discharge Plan Discharge Items Patient Disposition: Home - Self-Care Reason For Visit: COMMUNITY ACQUIRED PNEUMONIA Discharge Diagnosis: Community Acquired Pneumonia Condition on Discharge: Good Goals: complete course of antibiotics stay well hydrated, well nourished, get rest Activity: Resume your previous activity Weightbearing: Full weightbearing Non-emergency contact: Primary Care Provider Call non-emergency contact if: you have any medication questions, your symptoms worsen and you have a fever Follow-up/Referrals: Berna Morton CRNP [Primary Care Provider] - Diet: Regular Addtl Attending Provider Instructions: Medications: - AZITHROMYCIN: 250mg daily x 3 more days - CEFDINIR: 300mg twice a day for 5 more days Community acquired pneumonia presented with confusion and mild dehydration, chest x-ray with right upper lobe infiltrate (pneumonia) responded well to Rocephin IV and Zithromax PO, IV fluids eating well, breathing well, no fever, WBC normal return home to complete course of antibiotics, get rest, stay well hydrated and well nourished Pending Studies at Discharge: No Stand-Alone Forms: My [facility], Smoking Cessation Medications and DC Order Prescriptions: New azithromycin 250 mg Tablet 250 mg PO QAM 3 Days Qty: 3 RF: 0 cefdinir 300 mg capsule 300 mg PO BID 5 Days Qty: 10 RF: 0 Continued (DME) nebulizers misc See Rx Instructions .ROUTE .MEDSUPPLY Qty: 1 RF: 0 pravastatin [Pravachol] 40 mg tablet 40 mg PO HS RF: 0 amlodipine [Norvasc] 5 mg tablet 5 mg PO QAM RF: 0 levothyroxine 100 mcg tablet 100 mcg PO QAM RF: 0 citalopram [Celexa] 20 mg tablet 20 mg PO QAM RF: 0 ascorbic acid (vitamin C) [Vitamin C] 250 mg Tablet 250 mg PO QAM RF: 0 pantoprazole [Protonix] 40 mg tablet,delayed release (DR/EC) 40 mg PO BID RF: 0 levalbuterol HCl 1.25 mg/3 mL Solution For Nebulization 1.25 mg INHALATION Q8 PRN (Reason: Shortness Of Breath Or Wheezing) RF: 0 Spiriva with HandiHaler 18 mcg capsule, w/inhalation device 1 cap inhalation QAM RF: 0 budesonide-formoterol [Symbicort] 160-4.5 mcg/actuation HFA aerosol inhaler 2 puff inhalation BID RF: 0 Children Multivitamin Tablet,Chewable 1 tab PO QAM RF: 0 Discharge Orders: Discharge Order (Routine); Ordered 11/16/19 Ordered By: Americo Toledo Admission Data Admit Date/Time: 11/14/19 16:44 Attending Provider: Americo Toledo Admit Provider: John Lorenz Primary Care Provider: Berna Morton Other Providers: John Lorenz Coding Level of Care Code 18788 OBS Care - Discharge Diagnoses Community acquired pneumonia J18.9 COPD (chronic obstructive pulmonary disease) J44.9 Hypertension I10 Hypertension type: essential hypertension Murmur, cardiac R01.1 DVT prophylaxis Z29.9
== END 2019-11-16 14:32 | disposition home or self-care (01) ==
LOC: 2N 12:01 → ED 12:01 → SUATTDRO 16:44 → 2N 18:09

== ENCOUNTER 2021-05-16 14:42 | Inpatient (IN) ==
--- NOTE | 2021-05-16 16:21 | XRay Report ---
XR chest 1V portable CLINICAL HISTORY: cough TECHNIQUE: Single frontal radiograph of the chest was obtained. Comparison: Comparison is made to chest one view 11/24/2020 FINDINGS: No lines and tubes are seen. The cardiomediastinal silhouette is normal. No airspace opacity is seen. There is redemonstration of an approximately 2.0 cm lesion in the right upper lung, which does not a ppear to be summation artifact. No evidence of pleural effusion or pneumothorax. IMPRESSION: 1. No acute chest disease. 2. Redemonstration of 2 cm lesion in the right upper lung. If not previously evaluated, CT chest can be performed on a nonemergent basis. ACT 112: Negative or not required by law. Electronically signed by: Americo Rogers M.D. 05/16/2021 4:20 PM
[2021-05-16 16:38] LABS: Basophils # (auto) 0.01 K/uL (0-0.2); Basophils % (auto) 0.3 %; Hematocrit (blood only) 41.6 % (37-47); Hemoglobin 14.1 g/dL (12.0-16.0); Lymphocytes # (auto) 1.46 K/uL (1.2-3.4); Lymphocytes % (auto) 38.1 %; Mean Corpuscular Hemoglobin 31.1 pg (25-34); Mean Corpuscular Hgb Conc 33.9 g/dL (32-36); Mean Corpuscular Volume 91.8 fL (80-100); Monocytes # (auto) 0.43 K/uL (0.11-0.59); Monocytes % (auto) 11.2 %; Neutrophils # (auto) 1.93 K/uL (1.4-6.5); Neutrophils % (auto) 50.4 %; Platelet Count 231 K/uL (130-400); RDW Coefficient of Variation 14.6 % (11.5-14.5); RDW Standard Deviation 49.6 fL (36.4-46.3); Red Blood Count 4.53 M/uL (4.2-5.4); White Blood Count 3.83 K/uL (4.8-10.8)
[2021-05-16 16:47] LABS: Appearance Urine Clear (Clear); Bacteria Urine Automated Negative (Negative); Bilirubin Urine Negative (Negative); Blood Urine 1+ (Negative); Color Urine Dark Yellow; Epithelial Cell Urine Auto >30 /lpf (0-5); Glucose Urine UA Negative (Negative); Ketones Urine Trace (Negative); Leukocyte Esterase Urine 2+ (Negative); Nitrite Urine Negative (Negative); Protein Urine Trace (Negative); Specific Gravity Urine 1.019 (1.000-1.030); Urobilinogen Urine Negative (Negative); pH Urine 5.5 (4.5-7.5)
[2021-05-16 16:54] LABS: Albumin Level 3.8 gm/dl (3.4-5.0); BUN Creatinine Ratio 16.2 (10-20); Blood Urea Nitrogen 17 mg/dl (7-18); Carbon Dioxide 27 mmol/L (21-32); Chloride 96 mmol/L (98-107); Est GFR (African American) 56.7 ml/min; Glucose 110 mg/dl (70-99); Potassium 3.9 mmol/L (3.5-5.1); Sodium 130 mmol/L (136-145)
[2021-05-16 17:01] LABS: Alanine Aminotransferase 29 (12-78); Alkaline Phosphatase 77 U/L (45-117); Aspartate Aminotransferase 34 U/L (15-37); Bilirubin,Total 0.6 mg/dl (0.2-1); Globulin 3.9 gm/dl (2.5-4.0); Total Protein 7.7 gm/dl (6.4-8.2)
[2021-05-16 17:07] LABS: Influenza A virus by PCR Negative (Neg); Influenza B virus by PCR Negative (Neg); RSV by PCR Negative (Neg)
[2021-05-16 17:58] LABS: SARS CoV2 RNA(COVID-19) InHosp POSITIVE (Negative)
--- NOTE | 2021-05-16 18:22 | Emergency Department Note ---
Impression & Plan Weakness, COVID-19, Acute hyponatremia, Acute UTI ED Provider Note Provider: Jasson Parr MD DATE OF SERVICE: 05/16/2021 CHIEF COMPLAINT: Weakness, cold symptoms HISTORY OF PRESENT ILLNESS: Patient is a 86-year-old female history of COPD not on home oxygen, AAA, and UTI presenting here today with daughter with 4 days of cold type symptoms. Some nonproductive cough and congestion reported. Daughter noted her to me somewhat more weak and today may be just a little bit confused at times. No trauma or falls reported. Failure today. Discussed with family doctor and was referred here for further evaluation. The patient denies any urinary symptoms. She denies chest pain or abdominal pain but reports her abdomen seems little unsettled. Reports some mild myalgias. Patient's friend did note a fever at home today and family members have recently been positive for Covid. The patient has not vaccinated for Covid. Patient did have some Tylenol earlier this morning. REVIEW OF SYSTEMS: A total of 10 review of systems was obtained and negative except as stated above in the HPI. PAST MEDICAL HISTORY: As noted above MEDICATIONS: Reviewed home medication list SOCIAL HISTORY: Former smoker, lives at home PHYSICAL EXAM: GENERAL: alert and oriented in no acute distress seated in a wheelchair somewhat fatigued appearing Head: normocephalic and atraumatic EYES: No injection, discharge or icterus. NECK: Trachea midline. LUNGS: Airway patent. No retractions. Breath sounds clear with good air entry bilaterally. HEART: Regular rate and rhythm. No chest wall tenderness ABDOMEN: Soft and non-tender, without guarding or rebound SKIN: Acyanotic, warm, dry, without rashes EXTREMITIES: Without swelling, tenderness or deformity NEUROLOGICAL: No focal deficits. No aphasia. No facial droop or slurred speech. EK bpm normal sinus rhythm. No PVC or PAC. No acute ST segment elevation noted with inferior lateral T wave inversions. QTC 421. In comparison to previous from November [id number], increased inferior and now some lateral T wave inversions noted. CONTINUOUS CARDIAC MONITORING: was ordered and showed a heart rate of 60s-90s bpm in normal sinus rhythm Patient's laboratory studies and imaging reviewed. Differential includes Infection, dehydration, metabolic abnormality, hypo/hyperglycemia, electrolyte disturbance, anemia, hypoxia, cardiac sources, intracerebral event, toxicologic, neurologic, as well as other pathologies. IMPRESSION/MEDICAL DECISION MAKING: Patient vaccinated for Covid and Covid positive today. History of pneumonia and COPD. Not on home oxygen. Denies urinary symptoms but her report of UTI in the past. Chest x-ray without significant findings. No anemia with mild leukopenia likely in the setting of Covid reactive. Negative RSV and influenza. Urinalysis appears with some contamination but some white blood cells and leuk esterase are noted. Patient without significant focal neurological deficits. No transaminitis noted here today. Some mild hyponatremia is noted today on blood work and this may be contributing a little bit to some of her confusion beyond the viral syndrome from Covid. Given history of urine infection in discussion with daughter reviewed prior microbiology in the computer and covered empirically with Unasyn. EKG and troponin completed (no detectable level) although lower suspicion this represents ACS without her chest pain complaint. Given some Tylenol here and very small amount of IV fluid. Patient not hypoxic. Patient significantly weak however. Limited family support his daughter and son-in-law currently recovering from Covid themselves. Patient has been living on her own. Discussed with daughter and patient and she felt too weak to go home at this time. Given timeline of Covid patient will likely get somewhat worse before better. Discussed with hospitalist for further observation here DIAGNOSIS: COVID-19, weakness, hyponatremia, acute uti DISPOSITION: Hospitalist will evaluate Patient was agreeable with this plan. Past Med/Surg History Medical History (Updated 05/16/21 @ 19:34 by Jasson Parr M.D.) Altered mental status Anemia Anxiety Closed sacral fracture COPD (chronic obstructive pulmonary disease) COPD exacerbation Cough Dehydration Dementia Depression Duodenal bulb ulcer DVT prophylaxis Elevated troponin Gallstones Hyperlipidemia LDL goal <70 Hypertension Hypertensive urgency Hyponatremia Hypothyroidism Hypothyroidism Left hip pain Murmur, cardiac Osteopenia Peptic ulcer disease Pneumonia Pseudomonas urinary tract infection Urinary retention UTI (urinary tract infection) Surgical History S/P AAA (abdominal aortic aneurysm) repair Family History Father , in his 70s of an DE. Hypertension Myocardial infarction Mother , in her 70s after a fall No problems noted. 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 Feels Safe at Home: Yes Assistive Devices: Glasses and Walker Allergies Allergies Allergy/AdvReac Type Severity Reaction Status Date / Time bupropion [From Wellbutrin] Allergy Mild Unknown Unverified 01/03/21 10:08 hydrochlorothiazide Allergy Mild Unknown Unverified 01/03/21 10:08 [From Avalide] irbesartan [From Avalide] Allergy Mild Unknown Unverified 01/03/21 10:08 roflumilast [From Daliresp] Allergy Mild Unknown Unverified 01/03/21 10:08 denosumab [From Prolia] Allergy Unknown Verified 01/03/21 10:08 tramadol Allergy Unknown Verified 01/03/21 10:08 ciprofloxacin [From Cipro] AdvReac Unknown Unverified 01/03/21 10:08 fentanyl [From Duragesic] AdvReac Hallucinati Verified 01/03/21 10:08 ng NSAIDS (Non-Steroidal AdvReac Unknown Unverified 01/03/21 10:08 Anti-Inflamma Sulfa (Sulfonamide AdvReac Hives Unverified 05/16/21 19:49 Antibiotics) Home Meds Home Medications Medication Instructions Recorded Confirmed albuterol sulfate 90 mcg/actuation 2 puff INHALATION Q6H PRN 05/16/21 05/16/21 aerosol inhaler amlodipine 5 mg tablet 5 mg PO DAILY 05/16/21 05/16/21 citalopram 10 mg tablet (Celexa) 10 mg PO DAILY 05/16/21 05/16/21 fluticasone furoate 200 1 inh INHALATION DAILY 05/16/21 05/16/21 mcg-vilanterol 25 mcg/dose inhalation powder (Breo Ellipta) levothyroxine 50 mcg tablet 50 mcg PO QAM 05/16/21 05/16/21 multivitamin 1 tab PO DAILY 05/16/21 05/16/21 pantoprazole 40 mg tablet,delayed 40 mg PO BID 05/16/21 05/16/21 release tiotropium bromide 18 mcg capsule 2 cap INHALATION DAILY 05/16/21 05/16/21 with inhalation device (Spiriva with HandiHaler) Results & Data (ED) Vital Signs Vital Signs - 24 hr 05/16/21 15:04 05/16/21 19:21 05/16/21 19:33 Temperature 37.8 C H 36.7 C Temperature Source Temporal Artery Scan Oral Pulse Rate 84 80 Pulse Rate from SpO2 Sensor 77 Respiratory Rate 18 18 Respiratory Depth Normal Blood Pressure 138/69 Blood Pressure Mean 92 Pulse Oximetry 96 95 96 Oxygen Delivery Method Room Air Sepsis Recent Fever Within 48 Hours No Sepsis New/Unexplained Change in Mental Status N/A Sepsis Action Taken by Nursing No Action Required 05/16/21 20:00 05/16/21 20:30 Temperature Temperature Source Pulse Rate 75 72 Pulse Rate from SpO2 Sensor 75 72 Respiratory Rate 17 20 Respiratory Depth Blood Pressure 135/54 L 149/69 H Blood Pressure Mean 81 95 Pulse Oximetry 96 95 Oxygen Delivery Method Sepsis Recent Fever Within 48 Hours Sepsis New/Unexplained Change in Mental Status Sepsis Action Taken by Nursing Laboratory Data Result diagrams: 05/16/21 16:18 05/16/21 16:18 Lab Results 05/16/21 05/16/21 05/16/21 Range/Units 16:18 16:18 16:18 WBC 3.83 L (4.8-10.8) K/uL RBC 4.53 (4.2-5.4) M/uL Hgb 14.1 (12.0-16.0) g/dL Hct 41.6 (37-47) % MCV 91.8 (80-100) fL MCH 31.1 (25-34) pg MCHC 33.9 (32-36) g/dL RDW Std Deviation 49.6 H (36.4-46.3) fL RDW Coeff of Radhika 14.6 H (11.5-14.5) % Plt Count 231 (130-400) K/uL MPV 10.0 (7.4-10.4) fL Immature Gran % (Auto) 0.0 % Neut % (Auto) 50.4 % Lymph % (Auto) 38.1 % Roberts % (Auto) 11.2 % Eos % (Auto) 0.0 % Baso % (Auto) 0.3 % Neut # (Auto) 1.93 (1.4-6.5) K/uL Lymph # (Auto) 1.46 (1.2-3.4) K/uL Roberts # (Auto) 0.43 (0.11-0.59) K/uL Eos # (Auto) 0.00 (0-0.5) K/uL Baso # (Auto) 0.01 (0-0.2) K/uL Immature Gran # (Auto) 0.00 (0.00-0.02) K/uL Sodium 130 L (136-145) mmol/L Potassium 3.9 (3.5-5.1) mmol/L Chloride 96 L (98-107) mmol/L Carbon Dioxide 27 (21-32) mmol/L Anion Gap 7.0 (3-11) BUN 17 (7-18) mg/dl Creatinine 1.04 (0.6-1.2) mg/dl Est Cr Clr Drug Dosing Not Reportable Est GFR ( Amer) 56.7 ml/min Est GFR (Non-Af Amer) 49.0 ml/min BUN/Creatinine Ratio 16.2 (10-20) Glucose 110 H (70-99) mg/dl Calcium 9.0 (8.5-10.1) mg/dl Total Bilirubin 0.6 (0.2-1) mg/dl AST 34 (15-37) U/L ALT 29 (12-78) Alkaline Phosphatase 77 (45-117) U/L Troponin I < 0.015 (0-0.045) ng/ml Total Protein 7.7 (6.4-8.2) gm/dl Albumin 3.8 (3.4-5.0) gm/dl Globulin 3.9 (2.5-4.0) gm/dl Albumin/Globulin Ratio 1.0 (0.9-2) TSH 8.790 H (0.300-4.500) uIu/ml Free T4 1.20 (0.8-1.6) ng/dl Urine Color Urine Appearance (Clear) Urine pH (4.5-7.5) Ur Specific [place] (1.000-1.030) Urine Protein (Negative) Urine Glucose (UA) (Negative) Urine Ketones (Negative) Urine Blood (Negative) Urine Nitrite (Negative) Urine Bilirubin (Negative) Urine Urobilinogen (Negative) Ur Leukocyte Esterase (Negative) Urine WBC (Auto) (0-5) /hpf Urine RBC (Auto) (0-4) /hpf U Hyaline Cast (Auto) (0-5) /lpf U Epithel Cells (Auto) (0-5) /lpf Urine Bacteria (Auto) (Negative) Urine Yeast SARS-CoV-2 (PCR) (Negative) Influenza Type A (PCR) (Neg) Influenza Type B (PCR) (Neg) RSV (RT-PCR) (Neg) 05/16/21 05/16/21 Range/Units 16:21 16:37 WBC (4.8-10.8) K/uL RBC (4.2-5.4) M/uL Hgb (12.0-16.0) g/dL Hct (37-47) % MCV (80-100) fL MCH (25-34) pg MCHC (32-36) g/dL RDW Std Deviation (36.4-46.3) fL RDW Coeff of Radhika (11.5-14.5) % Plt Count (130-400) K/uL MPV (7.4-10.4) fL Immature Gran % (Auto) % Neut % (Auto) % Lymph % (Auto) % Roberts % (Auto) % Eos % (Auto) % Baso % (Auto) % Neut # (Auto) (1.4-6.5) K/uL Lymph # (Auto) (1.2-3.4) K/uL Roberts # (Auto) (0.11-0.59) K/uL Eos # (Auto) (0-0.5) K/uL Baso # (Auto) (0-0.2) K/uL Immature Gran # (Auto) (0.00-0.02) K/uL Sodium (136-145) mmol/L Potassium (3.5-5.1) mmol/L Chloride (98-107) mmol/L Carbon Dioxide (21-32) mmol/L Anion Gap (3-11) BUN (7-18) mg/dl Creatinine (0.6-1.2) mg/dl Est Cr Clr Drug Dosing Est GFR ( Amer) ml/min Est GFR (Non-Af Amer) ml/min BUN/Creatinine Ratio (10-20) Glucose (70-99) mg/dl Calcium (8.5-10.1) mg/dl Total Bilirubin (0.2-1) mg/dl AST (15-37) U/L ALT (12-78) Alkaline Phosphatase (45-117) U/L Troponin I (0-0.045) ng/ml Total Protein (6.4-8.2) gm/dl Albumin (3.4-5.0) gm/dl Globulin (2.5-4.0) gm/dl Albumin/Globulin Ratio (0.9-2) TSH (0.300-4.500) uIu/ml Free T4 (0.8-1.6) ng/dl Urine Color Dark Yellow Urine Appearance Clear (Clear) Urine pH 5.5 (4.5-7.5) Ur Specific [place] 1.019 (1.000-1.030) Urine Protein Trace H (Negative) Urine Glucose (UA) Negative (Negative) Urine Ketones Trace H (Negative) Urine Blood 1+ H (Negative) Urine Nitrite Negative (Negative) Urine Bilirubin Negative (Negative) Urine Urobilinogen Negative (Negative) Ur Leukocyte Esterase 2+ H (Negative) Urine WBC (Auto) 10-30 H (0-5) /hpf Urine RBC (Auto) 5-10 H (0-4) /hpf U Hyaline Cast (Auto) 1-5 (0-5) /lpf U Epithel Cells (Auto) >30 H (0-5) /lpf Urine Bacteria (Auto) Negative (Negative) Urine Yeast Not Reportable SARS-CoV-2 (PCR) POSITIVE A* (Negative) Influenza Type A (PCR) Negative (Neg) Influenza Type B (PCR) Negative (Neg) RSV (RT-PCR) Negative (Neg) Administered Medications Discontinued Medications Acetaminophen (Acetaminophen 325 Mg Tab) 650 mg PO NOW STA Stop: 05/16/21 18:36 Last Admin: 05/16/21 19:32 Dose: 650 mg Documented by: [id number] Sodium Chloride (Nss 1000ml) 500 mls @ 999 mls/hr IV .Q31M ONE Stop: 05/16/21 19:05 Last Infusion: 05/16/21 20:28 Dose: 0 mls/hr Documented by: [id number] Admin: 05/16/21 19:32 Dose: 999 mls/hr Documented by: [id number] Ampicillin Sodium/Sulbactam Sodium 3,000 mg/ Sodium Chloride 108 mls @ 200 mls/hr IV NOW STA; Protocol Stop: 05/16/21 20:02 Last Infusion: 05/16/21 21:44 Dose: 0 mls/hr Documented by: [id number] Admin: 05/16/21 20:52 Dose: 200 mls/hr Documented by: [id number] Imaging Data Radiologist's Impression: Chest X-Ray 05/16/21 15:07 XR chest 1V portable CLINICAL HISTORY: cough TECHNIQUE: Single frontal radiograph of the chest was obtained. Comparison: Comparison is made to chest one view 11/24/2020 FINDINGS: No lines and tubes are seen. The cardiomediastinal silhouette is normal. No airspace opacity is seen. There is redemonstration of an approximately 2.0 cm lesion in the right upper lung, which does not appear to be summation artifact. No evidence of pleural effusion or pneumothorax. IMPRESSION: 1. No acute chest disease. 2. Redemonstration of 2 cm lesion in the right upper lung. If not previously evaluated, CT chest can be performed on a nonemergent basis. ACT 112: Negative or not required by law. Electronically signed by: Americo Rogers M.D. 05/16/2021 4:20 PM Discharge Plan Visit Data Chief Complaint: Cough Stated Complaint: BAD COUGH HAD FOR A FEW DAY'S ED Provider: Jasson Prar Discharge Problem: Weakness, COVID-19, Acute hyponatremia, Acute UTI Patient Disposition: Being Evaluated by Hospitalist
[2021-05-16] MEDS ORDERED: SODIUM CHLORIDE 0.9% 1000ML 500 ML IV ONE (18:35)
[2021-05-16] MEDS ORDERED: ACETAMINOPHEN 325 MG TAB PO STA (18:35)
[2021-05-16 18:40] LABS: Troponin I < 0.015 ng/ml (0-0.045)
[2021-05-16] MEDS ORDERED: AMPICILLIN/SULBACTAM SOD 3,000 MG in 0.9 % SODIUM CHLORIDE 100 ML IV STA (19:30)
[2021-05-16 20:27] LABS: Thyroid Stimulating Hormone 8.79 uIu/ml (0.300-4.500)
--- NOTE | 2021-05-16 20:37 | History & Physical Report ---
Date of Service May 16, 2021 Assessment & Plan (1) COVID-19: Plan: 86yo female presenting with Covid-19 infection. She is on day 5 of symptoms - predominantly complaining of a cough as well as weakness and confusion. She is not vaccinated against Covid-19. Her family is ill as well and are recovering but still symptomatic. Patient is not hypoxic at this time. SpO2=94% on RA Patient lives at home alone and is presently not safe to go home with her weakne ss and confusion. Daughter anticipates being able to care for her mother in her (daughter's home) in the next day or so if her symptoms continue to improve. -Admit to medical -Maintain isolation precautions -Monitor oxygenation -Tylenol PRN pain or fever -Tessalon PRN cough (2) COPD (chronic obstructive pulmonary disease): Plan: Patient with history of mild COPD. She follows with Pulmonary for this issue - last seen 01/03/2021. Presently no cough, SOB or wheeze -Continue Tiotropium -Continue Breo-ellipta -Albuterol PRN -Monitor oxygenation (3) Depression: Plan: Chronic -Continue Celexa 10mg po daily (4) Hypothyroidism: Plan: Patient with elevated TSH of 8.79, normal Free T4=1.2 -Continue home Synthroid of 550 mcg daily (5) Hypertension: Plan: Chronic. Stable -Continue Amlodipine 5mg po daily -Monitor BP Plan: F/E/N - Heplock. Electrolytes with mild hyponatremia with Pl=954, repeat labs in AM, regular diet as tolerated Ppx - Lovenox 30 BID Code -DNR/DNI per discussion with patient Dispo -Admit to medical, maintain Covid-19 isolation precautions. History of Present Illness Chief Complaint: Covid-19 infection, confusion and weakness Primary Care Provider: Jann Banda MD Jennifer Rodriguez is an 86yo C female with history of COPD, HTN, HLP. She presently lives alone and has family check in on her routinely. Her daughter and son-in-law became ill with Covid-19 symptoms shortly after Thanksgiving. They have been recovering at home. Patient became ill approximately 5 days ago with a dry cough and loss of taste/smell. She has had two days of severe weakness and fatigue as well as confusion. She has forgotten to take her medications. She had a fever today. Patient denies chest pain, SOB, abdominal pain, nausea, vomiting, diarrhea. No additional complaints at this time. ER Course: Unasyn, Tylenol, NSS Allergies Allergy/AdvReac Type Severity Reaction Status Date / Time bupropion [From Wellbutrin] Allergy Mild Unknown Unverified 01/03/21 10:08 hydrochlorothiazide Allergy Mild Unknown Unverified 01/03/21 10:08 [From Avalide] irbesartan [From Avalide] Allergy Mild Unknown Unverified 01/03/21 10:08 roflumilast [From Daliresp] Allergy Mild Unknown Unverified 01/03/21 10:08 denosumab [From Prolia] Allergy Unknown Verified 01/03/21 10:08 tramadol Allergy Unknown Verified 01/03/21 10:08 ciprofloxacin [From Cipro] AdvReac Unknown Unverified 01/03/21 10:08 fentanyl [From Duragesic] AdvReac Hallucinati Verified 01/03/21 10:08 ng NSAIDS (Non-Steroidal AdvReac Unknown Unverified 01/03/21 10:08 Anti-Inflamma Sulfa (Sulfonamide AdvReac Hives Unverified 05/16/21 19:49 Antibiotics) Home Medications Medication Instructions Recorded Confirmed Type albuterol sulfate 90 mcg/actuation 2 puff INHALATION Q6H PRN 05/16/21 05/16/21 History aerosol inhaler amlodipine 5 mg tablet 5 mg PO DAILY 05/16/21 05/16/21 History citalopram 10 mg tablet (Celexa) 10 mg PO DAILY 05/16/21 05/16/21 History fluticasone furoate 200 2 inh INHALATION Q6H 05/16/21 05/16/21 History mcg-vilanterol 25 mcg/dose inhalation powder (Breo Ellipta) levothyroxine 50 mcg tablet 550 mcg PO QAM 05/16/21 05/16/21 History multivitamin 1 tab PO DAILY 05/16/21 05/16/21 History pantoprazole 40 mg tablet,delayed 40 mg PO BID 05/16/21 05/16/21 History release tiotropium bromide 18 mcg capsule 2 cap INHALATION Q6H 05/16/21 05/16/21 History with inhalation device (Spiriva with HandiHaler) Past Med/Surg History Medical History (Updated 05/16/21 @ 19:34 by Jasson Parr M.D.) Altered mental status Anemia Anxiety Closed sacral fracture COPD (chronic obstructive pulmonary disease) COPD exacerbation Cough Dehydration Dementia Depression Duodenal bulb ulcer DVT prophylaxis Elevated troponin Gallstones Hyperlipidemia LDL goal <70 Hypertension Hypertensive urgency Hyponatremia Hypothyroidism Hypothyroidism Left hip pain Murmur, cardiac Osteopenia Peptic ulcer disease Pneumonia Pseudomonas urinary tract infection Urinary retention UTI (urinary tract infection) Surgical History S/P AAA (abdominal aortic aneurysm) repair Family History Father , in his 70s of an [place]. Hypertension Myocardial infarction Mother , in her 70s after a fall No problems noted. 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 Feels Safe at Home: Yes Assistive Devices: Glasses and Walker Review of Systems Review of Systems: All systems reviewed & are unremarkable except as noted in HPI & below Physical Exam Physical Exam: General: patient resting comfortably, NAD, non-toxic in appearance, AA&O x 4 Skin: warm, dry, intact, no rashes or lesions HEENT: NC/AT, PERRL, EOMI, anicteric sclera, conjunctiva without injection, external ear normal to inspection and nontender, nares patent, moist mucus membranes, dentition intact, no oropharyngeal lesions, neck supple, trachea midline, no LAD, no thyromegaly, no JVD Heart: +S1/S2, regular, no m/r/g Lungs: equal air entry bilaterally, no rales/rhonchi/wheezes Abd: +BS, soft, NT/ND, no masses/organomegaly/ascites Ext: warm, 2+ pulses in UE/LE bilaterally, no clubbing/cyanosis or edema Neuro: nonfocal, patient AA&O x 4, speech intact, no facial droop, moving all extremities on command with equal strength 5/5 Results & Data Results & Data ([facility]) Vital Signs (Past 12 Hours) Vital Signs Temp Pulse Resp BP Pulse Ox 05/16/21 20:00 75 17 135/54 L 96 05/16/21 19:33 80 18 96 05/16/21 19:21 36.7 C 95 05/16/21 15:04 37.8 C H 84 18 138/69 96 Laboratory Results Laboratory Results WBC 3.83 K/uL (4.8-10.8) L 05/16/21 16:18 RBC 4.53 M/uL (4.2-5.4) 05/16/21 16:18 Hgb 14.1 g/dL (12.0-16.0) 05/16/21 16:18 Hct 41.6 % (37-47) 05/16/21 16:18 MCV 91.8 fL (80-100) 05/16/21 16:18 MCH 31.1 pg (25-34) 05/16/21 16:18 MCHC 33.9 g/dL (32-36) 05/16/21 16:18 RDW Std Deviation 49.6 fL (36.4-46.3) H 05/16/21 16:18 RDW Coeff of Radhika 14.6 % (11.5-14.5) H 05/16/21 16:18 Plt Count 231 K/uL (130-400) 05/16/21 16:18 MPV 10.0 fL (7.4-10.4) 05/16/21 16:18 Immature Gran % (Auto) 0.0 % 05/16/21 16:18 Neut % (Auto) 50.4 % 05/16/21 16:18 Lymph % (Auto) 38.1 % 05/16/21 16:18 [place] % (Auto) 11.2 % 05/16/21 16:18 Eos % (Auto) 0.0 % 05/16/21 16:18 Baso % (Auto) 0.3 % 05/16/21 16:18 Neut # (Auto) 1.93 K/uL (1.4-6.5) 05/16/21 16:18 Lymph # (Auto) 1.46 K/uL (1.2-3.4) 05/16/21 16:18 [place] # (Auto) 0.43 K/uL (0.11-0.59) 05/16/21 16:18 Eos # (Auto) 0.00 K/uL (0-0.5) 05/16/21 16:18 Baso # (Auto) 0.01 K/uL (0-0.2) 05/16/21 16:18 Immature Gran # (Auto) 0.00 K/uL (0.00-0.02) 05/16/21 16:18 Sodium 130 mmol/L (136-145) L 05/16/21 16:18 Potassium 3.9 mmol/L (3.5-5.1) 05/16/21 16:18 Chloride 96 mmol/L (98-107) L 05/16/21 16:18 Carbon Dioxide 27 mmol/L (21-32) 05/16/21 16:18 Anion Gap 7.0 (3-11) 05/16/21 16:18 BUN 17 mg/dl (7-18) 05/16/21 16:18 Creatinine 1.04 mg/dl (0.6-1.2) 05/16/21 16:18 Est Cr Clr Drug Dosing Not Reportable 05/16/21 16:18 Est GFR ( Amer) 56.7 ml/min 05/16/21 16:18 Est GFR (Non-Af Amer) 49.0 ml/min 05/16/21 16:18 BUN/Creatinine Ratio 16.2 (10-20) 05/16/21 16:18 Glucose 110 mg/dl (70-99) H 05/16/21 16:18 Calcium 9.0 mg/dl (8.5-10.1) 05/16/21 16:18 Total Bilirubin 0.6 mg/dl (0.2-1) 05/16/21 16:18 AST 34 U/L (15-37) 05/16/21 16:18 ALT 29 (12-78) 05/16/21 16:18 Alkaline Phosphatase 77 U/L (45-117) 05/16/21 16:18 Troponin I < 0.015 ng/ml (0-0.045) 05/16/21 16:18 Total Protein 7.7 gm/dl (6.4-8.2) 05/16/21 16:18 Albumin 3.8 gm/dl (3.4-5.0) 05/16/21 16:18 Globulin 3.9 gm/dl (2.5-4.0) 05/16/21 16:18 Albumin/Globulin Ratio 1.0 (0.9-2) 05/16/21 16:18 TSH 8.790 uIu/ml (0.300-4.500) H 05/16/21 16:18 Free T4 1.20 ng/dl (0.8-1.6) 05/16/21 16:18 Urine Color Dark Yellow 05/16/21 16:37 Urine Appearance Clear (Clear) 05/16/21 16:37 Urine pH 5.5 (4.5-7.5) 05/16/21 16:37 Ur Specific Starlight 1.019 (1.000-1.030) 05/16/21 16:37 Urine Protein Trace (Negative) H 05/16/21 16:37 Urine Glucose (UA) Negative (Negative) 05/16/21 16:37 Urine Ketones Trace (Negative) H 05/16/21 16:37 Urine Blood 1+ (Negative) H 05/16/21 16:37 Urine Nitrite Negative (Negative) 05/16/21 16:37 Urine Bilirubin Negative (Negative) 05/16/21 16:37 Urine Urobilinogen Negative (Negative) 05/16/21 16:37 Ur Leukocyte Esterase 2+ (Negative) H 05/16/21 16:37 Urine WBC (Auto) 10-30 /hpf (0-5) H 05/16/21 16:37 Urine RBC (Auto) 5-10 /hpf (0-4) H 05/16/21 16:37 U Hyaline Cast (Auto) 1-5 /lpf (0-5) 05/16/21 16:37 U Epithel Cells (Auto) >30 /lpf (0-5) H 05/16/21 16:37 Urine Bacteria (Auto) Negative (Negative) 05/16/21 16:37 Urine Yeast Not Reportable 05/16/21 16:37 SARS-CoV-2 (PCR) POSITIVE (Negative) A* 05/16/21 16:21 Influenza Type A (PCR) Negative (Neg) 05/16/21 16:21 Influenza Type B (PCR) Negative (Neg) 05/16/21 16:21 RSV (RT-PCR) Negative (Neg) 05/16/21 16:21 Impressions Chest X-Ray 05/16/21 15:07 XR chest 1V portable CLINICAL HISTORY: cough TECHNIQUE: Single frontal radiograph of the chest was obtained. Comparison: Comparison is made to chest one view 11/24/2020 FINDINGS: No lines and tubes are seen. The cardiomediastinal silhouette is normal. No airspace opacity is seen. There is redemonstration of an approximately 2.0 cm lesion in the right upper lung, which does not appear to be summation artifact. No evidence of pleural effusion or pneumothorax. IMPRESSION: 1. No acute chest disease. 2. Redemonstration of 2 cm lesion in the right upper lung. If not previously evaluated, CT chest can be performed on a nonemergent basis. ACT 112: Negative or not required by law. Electronically signed by: Americo Rogers M.D. 05/16/2021 4:20 PM Code Status & VTE Plan VTE Prophylaxis Plan VTE Prophylaxis will be ordered: Yes PG Care Time/CCT Total # of Minutes Spent Total Time Spent with Patient: Total time spent is greater than 50% in coordination of care (as documented) at patient's floor/unit and/or counseling patient: Coding Level of Care Code 47326 Initial Inpt Care Lvl 2 Diagnoses COVID-19 U07.1 COPD (chronic obstructive pulmonary disease) J44.9 Depression F32.9 Depression Type: unspecified Hypothyroidism E03.9 Hypothyroidism type: acquired Hypertension I10 Hypertension type: essential hypertension (1) Depression Depression Type: unspecified Qualified Code(s): F32.9 - Major depressive disorder, single episode, unspecified (2) Hypothyroidism Hypothyroidism type: acquired Qualified Code(s): E03.9 - Hypothyroidism, unspecified (3) Hypertension Hypertension type: essential hypertension Qualified Code(s): I10 - Essential (primary) hypertension
[2021-05-16 20:39] LABS: T4 Free Thyroxine 1.2 ng/dl (0.8-1.6)
[2021-05-16] MEDS ORDERED: ALBUTEROL HFA 8 GM INHALER INH PRN (23:16)
[2021-05-16] MEDS ORDERED: ACETAMINOPHEN 325 MG TAB PO PRN (23:16)
[2021-05-17] MEDS: ENOXAPARIN INJ 30 MG/0.3 ML SYR SQ SCH ×3 (00:18→21:26)
[2021-05-17] MEDS: PANTOprazole 40 MG TAB PO SCH ×3 (00:18→21:27)
[2021-05-17] MEDS: LEVOTHYROXINE SODIUM 50 MCG TABLET PO SCH (05:14)
[2021-05-17 06:12] LABS: BUN Creatinine Ratio 14.4 (10-20); Blood Urea Nitrogen 13 mg/dl (7-18); Calcium 8.7 mg/dl (8.5-10.1); Carbon Dioxide 28 mmol/L (21-32); Chloride 102 mmol/L (98-107); Est GFR (African American) 65.8 ml/min; Est GFR (Non-African American) 56.8 ml/min; Glucose 85 mg/dl (70-99); Potassium 4.2 mmol/L (3.5-5.1); Sodium 135 mmol/L (136-145)
[2021-05-17 06:15] LABS: Creatine Kinase 186 U/L (26-192)
[2021-05-17] MEDS: CITALOPRAM 20 MG TAB PO SCH (08:18)
[2021-05-17] MEDS: amLODIPine BESYLATE 5 MG TAB PO SCH (08:19)
[2021-05-17] MEDS: UMECLIDINIUM BROMIDE 62.5MCG/BLISTER 7 PUFFS/INHALER INH SCH (08:20)
[2021-05-17] MEDS: FLUTICASONE/VILANTEROL 200/25MCG 14 PUFFS/INHALER INH SCH (08:22)
[2021-05-17] MEDS ORDERED: FLUTICASONE/VILANTEROL 200/25MCG 14 PUFFS/INHALER INH SCH (09:00)
--- NOTE | 2021-05-17 10:43 | Hospitalist Progress Note ---
Date of Service May 17, 2021 Assessment & Plan (1) COVID-19: Plan: 86yo female presenting with Covid-19 infection. She is on day 6 of symptoms. Patient is not hypoxic at this time. SpO2=93% on RA, did not desaturate with ambulation. Patient lives at home alone and is presently not safe to go home with her weakness and confusion. Daughter anticipates being able to care for her mother when she is medically stable for discharge. -Admit to medical -Maintain isolation precautions -Monitor oxygenation -Tylenol PRN pain or fever -Tessalon PRN cough -Add Mucinex (2) COPD (chronic obstructive pulmonary disease): Plan: Patient with history of mild COPD. She follows with Pulmonary for this issue - last seen 01/03/2021. -Continue Tiotropium -Continue Breo-ellipta -Albuterol PRN -Monitor oxygenation -Add mucolytics as noted above (3) Depression: Plan: Chronic -Continue Celexa 10mg po daily (4) Hypothyroidism: Plan: Patient with elevated TSH of 8.79, normal Free T4=1.2 -Continue home Synthroid of 50 mcg daily (5) Hypertension: Plan: Chronic. Stable -Continue Amlodipine 5mg po daily -Monitor BP (6) Abnormal urinalysis: Plan: ? UTI - Urine culture ordered - Given a dose of Unasyn in ED on 05/16 - Initiate empiric Rocephin 1g daily (start today) for uncomplicated UTI treatment until culture data finalized (7) Right pulmonary lesion: Plan: - Incidentally noted on CXR - Review of chart I find no prior CT chest - CT chest ordered w/o contrast Plan: Mild hyponatremia noted yesterday has resolved today, Na 135 on AM labs. Ppx - Lovenox, change to 40mg sq daily Code - DNR/DNI per discussion with patient -- confirmed again today Dispo - Admit to medical, maintain Covid-19 isolation precautions. PT/OT diallo D/C planning, will contact patient's daughter. Admission and Anticipated Discharge Date Admission Date: May 16, 2021 Jerome Loyola was seen on rounds this morning. Pt was hospitalized 05/16 for generalized weakness and confusion with +COVID-19. Pt has had sx for the past 5 days, exposed through daughter in law and son. She currently admits to cough that initially was productive but is no longer able to bring up mucus. She denies shortness of breath at rest or wheezing. Denies chest pain, n/v/d, f/c, headache, or gu symptoms. With ambulating she does get winded. She lives alone but family checks in on her frequently. She has no other complaints/concerns at present. Pt was not vaccinated. Currently not requiring supplemental O2. Review of Systems Review of Systems: CONSTITUTIONAL: +generalized weakness. Denies weight loss/gain, fever and chills. HEENT: Denies changes in vision and hearing. RESPIRATORY: +dry cough. Denies SOB, wheezing. CV: Denies palpitations, CP, lower extremity edema, orthopnea, PND. GI: Denies abdominal pain, nausea, vomiting and diarrhea. : Denies dysuria and urinary frequency, urgency, hesitancy. MUSCULOSKELETAL: Denies myalgia and joint pain. SKIN: Denies rash and pruritus. NEUROLOGICAL: Denies headache, syncope, focal weakness, numbness, tingling. PSYCHIATRIC: Denies recent changes in mood. Denies anxiety and depression. Physical Exam Physical Exam: GENERAL: 86 yo elderly WF, Well-developed, well-nourished. NAD. LUNGS: No accessory muscle use. Scattered rhonchi. No wheezes. CARDIOVASCULAR: Regular rate and rhythm. 2/6 ISABELLA. No G/R. No JVD. ABDOMEN: Soft, non-tender and non-distended. No palpable masses. BS normal x 4 quad. EXTREMITIES: No edema. Non-tender. Peripheral pulses +2/4. NEUROLOGIC: A&O x3. PSYCHIATRIC: Cooperative. Appropriate mood and affect. SKIN: Warm, dry, intact. No rashes or lesions. Results & Data Results & Data ([facility]) Vital Signs (Past 12 Hours) Vital Signs Temp Pulse Pulse Resp BP Pulse Ox 05/17/21 08:15 37.5 C 80 20 164/87 H 93 05/17/21 04:05 72 16 136/69 91 05/16/21 23:29 64 16 121/54 L 94 Laboratory Results 05/16/21 16:18 05/17/21 05:02 Diagnostic Findings Chest X-Ray 05/16/21 15:07 XR chest 1V portable CLINICAL HISTORY: cough TECHNIQUE: Single frontal radiograph of the chest was obtained. Comparison: Comparison is made to chest one view 11/24/2020 FINDINGS: No lines and tubes are seen. The cardiomediastinal silhouette is normal. No airspace opacity is seen. There is redemonstration of an approximately 2.0 cm lesion in the right upper lung, which does not appear to be summation artifact. No evidence of pleural effusion or pneumothorax. IMPRESSION: 1. No acute chest disease. 2. Redemonstration of 2 cm lesion in the right upper lung. If not previously evaluated, CT chest can be performed on a nonemergent basis. ACT 112: Negative or not required by law. Electronically signed by: Americo Rogers M.D. 05/16/2021 4:20 PM PG Care Time/CCT Total # of Minutes Spent Total Time Spent with Patient: Total time spent is greater than 50% in coordination of care (as documented) at patient's floor/unit and/or counseling patient: Coding Level of Care Code 03363 Subseq Hosp Care Lvl 3 Diagnoses COVID-19 U07.1 COPD (chronic obstructive pulmonary disease) J44.9 Depression F32.9 Depression Type: unspecified Hypothyroidism E03.9 Hypothyroidism type: acquired Hypertension I10 Hypertension type: essential hypertension Abnormal urinalysis R82.90 Right pulmonary lesion J98.4 (1) Depression Depression Type: unspecified Qualified Code(s): F32.9 - Major depressive disorder, single episode, unspecified (2) Hypothyroidism Hypothyroidism type: acquired Qualified Code(s): E03.9 - Hypothyroidism, unspecified (3) Hypertension Hypertension type: essential hypertension Qualified Code(s): I10 - Essential (primary) hypertension
[2021-05-17] MEDS: PATIENT'S HEIGHT AND/OR WEIGHT NEEDED SCH (12:39)
--- NOTE | 2021-05-17 12:54 | CT Scan Report ---
CT chest diagnostic wo con CT DOSE: 188.96 mGy.cm CLINICAL HISTORY: 86 years-old Female with 2 cm RUL lesion. Follow-up study in a patient with postin flammatory scarring and right upper lobe opacity TECHNIQUE: Multiaxial CT images of the chest were performed without contrast. A dose lowering techni que was utilized adhering to the principles of ALARA. COMPARISON: Chest radiograph 05/16/2021, 11/24/2020, 12/12/2019 and 11/14/2019, CT abdomen and pelvis FINDINGS: No thyroid nodule. No pathologically enlarged lymph nodes. The heart is normal in size with out pericardial effusion. Moderate coronary artery calcifications. Atherosclerosis of the thoracic ao rta without aneurysm. Fusiform aneurysmal dilation of the upper abdominal aorta measures up to 4.7 x 4.5 cm which is unchanged from prior. Mild biapical pleural-parenchymal scarring with mild emphysema. There is no pneumothorax, pleural eff usion or overt pulmonary edema. There is a mild bibasilar mucous plugging are noted along with bilate ral bronchial wall thickening. Subpleural reticular opacities with intermixed groundglass densities a re noted within all lobes bilaterally. There is a 2.6 x 1.3 cm irregular opacity of the right upper l obe on image 85 series 4 which correlates with the findings seen on comparison radiographs. This is p resent within the area of prior consolidation seen on the 11/14/2019 exam. There are a few tiny calcif ied pulmonary granulomata present. 5 mm solid nodule of the right middle lobe on image 175 series 4 a nd 4 mm solid nodule of the left lower lobe are stable from 11/30/2020. 3 mm solid nodule of the left lung apex on image 50 of series 4. The central airways are patent. No acute process of the imaged upper abdomen. Tiny hiatal hernia. 6 mm lymph node adjacent to distal esophagus on image 217 has slightly increased in size from prior. Cholelithiasis. Unremarkable soft t issues. There is no acute fracture. Chronic L1 compression deformity with retropulsion is unchanged. IMPRESSION: 1. Multilobar subpleural reticular interstitial opacities with groundglass densities are suggestive o f an infectious or inflammatory pneumonitis such as viral pneumonia. 2. Irregular 2.6 x 1.3 cm nodular opacity of the right upper lobe correlates with the radiographic ab normality and is present within ab area of prior consolidation seen on the 11/14/2019 exam. Postinflam matory scarring is favored, however a 12 month follow-up chest CT is recommended to further evaluate. 3. There are a few scattered low suspicion subcentimeter bilateral solid pulmonary nodules. The 5 mm right middle lobe and 4 mm left lower lobe nodules are unchanged from 11/30/2020. 4. 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 5. Cholelithiasis. ACT 112: Negative or not required by law. Electronically signed by: Pablo Major M.D. 05/17/2021 12:52 PM
[2021-05-17] MEDS: cefTRIAXone SODIUM 1,000 MG in DEXTROSE 5% 50 ML IV SCH (13:07)
[2021-05-17] MEDS: ONDANSETRON INJ 2 MG/ML 2 ML VIAL IV PRN (13:24)
[2021-05-17] MEDS: guaiFENesin 600 MG TABCR PO SCH (21:27)
[2021-05-18] MEDS: LEVOTHYROXINE SODIUM 50 MCG TABLET PO SCH (06:19)
[2021-05-18 06:43] LABS: Basophils # (auto) 0.02 K/uL (0-0.2); Basophils % (auto) 0.7 %; Hemoglobin 13.4 g/dL (12.0-16.0); Immature Granulocytes # (auto) 0.01 K/uL (0.00-0.02); Immature Granulocytes % (auto) 0.3 %; Lymphocytes # (auto) 1.07 K/uL (1.2-3.4); Lymphocytes % (auto) 36.5 %; Mean Corpuscular Hemoglobin 30.5 pg (25-34); Mean Corpuscular Hgb Conc 33.5 g/dL (32-36); Mean Corpuscular Volume 91.1 fL (80-100); Mean Platelet Volume 9.7 fL (7.4-10.4); Monocytes # (auto) 0.31 K/uL (0.11-0.59); Monocytes % (auto) 10.6 %; Neutrophils # (auto) 1.52 K/uL (1.4-6.5); Neutrophils % (auto) 51.9 %; Platelet Count 212 K/uL (130-400); RDW Coefficient of Variation 14.7 % (11.5-14.5); RDW Standard Deviation 49.7 fL (36.4-46.3); Red Blood Count 4.39 M/uL (4.2-5.4); White Blood Count 2.93 K/uL (4.8-10.8)
[2021-05-18 07:21] LABS: BUN Creatinine Ratio 15.6 (10-20); Calcium 8.5 mg/dl (8.5-10.1); Creatinine Clr Calc Pharmacy 40.8 ml/min; Est GFR (African American) 74.5 ml/min; Est GFR (Non-African American) 64.3 ml/min; Potassium 3.6 mmol/L (3.5-5.1)
[2021-05-18] MEDS: PATIENT'S HEIGHT AND/OR WEIGHT NEEDED SCH (07:26)
[2021-05-18] MEDS: cefTRIAXone SODIUM 1,000 MG in DEXTROSE 5% 50 ML IV SCH (09:13)
[2021-05-18] MEDS: BENZONATATE 100 MG CAPSULE PO PRN (09:14)
[2021-05-18] MEDS: amLODIPine BESYLATE 5 MG TAB PO SCH (10:28)
[2021-05-18] MEDS: PANTOprazole 40 MG TAB PO SCH ×2 (10:28→20:16)
[2021-05-18] MEDS: CITALOPRAM 20 MG TAB PO SCH (10:29)
[2021-05-18] MEDS: guaiFENesin 600 MG TABCR PO SCH ×2 (10:29→20:16)
[2021-05-18] MEDS: ENOXAPARIN INJ 30 MG/0.3 ML SYR SQ SCH (10:29)
[2021-05-18] MEDS: FLUTICASONE/VILANTEROL 200/25MCG 14 PUFFS/INHALER INH SCH (10:58)
[2021-05-18] MEDS: UMECLIDINIUM BROMIDE 62.5MCG/BLISTER 7 PUFFS/INHALER INH SCH (10:58)
[2021-05-18] MEDS ORDERED: REMDESIVIR 200 MG in SODIUM CHLORIDE 0.9% 210 ML IV ONE (13:00)
[2021-05-18] MEDS ORDERED: SODIUM CHLORIDE 0.9% 10ML FLUSH IV SCH (13:00)
--- NOTE | 2021-05-18 13:16 | Electrocardiogram Report ---
Test Reason : Blood Pressure : / mmHG Vent. Rate : 085 BPM Atrial Rate : 085 BPM P-R Int : 150 ms QRS Dur : 070 ms QT Int : 354 ms P-R-T Axes : 057 -06 -10 degrees QTc Int : 421 ms Normal sinus rhythm Nonspecific ST and T wave abnormality Abnormal ECG When compared with ECG of 14-NOV-2019 13:33, Criteria for Septal infarct are no longer Present Nonspecific T wave abnormality now evident in Lateral leads Confirmed by Ko Najera ([id number]) on 05/18/2021 1:15:49 PM Referred By: REFERRED SELF Confirmed By:Ko Najera
[2021-05-18] MEDS: dexAMETHasone 6 MG in SYRINGE 0 ML IV SCH (13:30)
--- NOTE | 2021-05-18 16:10 | Hospitalist Progress Note ---
Date of Service May 18, 2021 Assessment & Plan (1) Pneumonia due to COVID-19 virus: Plan: 86yo female presenting with Covid-19 infection. She is on day 6 of symptoms. Patient is now requiring supplemental O2. -Patient lives at home alone and is presently not safe to go home with her weakness and confusion. Daughter anticipates being able to care for her mother when she is medically stable for discharge. -Continue isolation precautions -Now requiring 2L of supplemental O2 (goal pulse ox 88-92%) -Initiate Decadron 6mg IV daily x 10 days (or until d/c whichever comes first) and Remdesivir -Tylenol PRN pain or fever -Tessalon PRN cough -Added Mucinex -Routine neb treatments -Flutter Valve q4h and Incentive spirometry (2) COPD (chronic obstructive pulmonary disease): Plan: Patient with history of mild COPD. She follows with Pulmonary for this issue - last seen 01/03/2021. -Continue Tiotropium -Continue Breo-ellipta -Albuterol PRN -Add mucolytics as noted above (3) Depression: Plan: Chronic -Continue Celexa 10mg po daily (4) Hypothyroidism: Plan: Patient with elevated TSH of 8.79, normal Free T4=1.2 -Continue home Synthroid of 50 mcg daily (5) Hypertension: Plan: Chronic. Stable -Continue Amlodipine 5mg po daily -Monitor BP (6) Abnormal urinalysis: Plan: -urine cx growing mixed organisms -No sensitivities to follow -No further need for IV abx therapy -D/c Rocephin (7) Right pulmonary lesion: Plan: -Incidentally noted on CXR -Noted results above from CT chest w/o contrast -Suspect this represents post inflammatory scarring, will need f/u CT chest in 1 year Plan: Mild hyponatremia noted at 132, will continue to monitor - may need diuresed Ppx - Lovenox 40mg sq daily Code - DNR/DNI per discussion with patient Continue therapy services D/C planning, will contact patient's daughter. Admission and Anticipated Discharge Date Admission Date: May 16, 2021 Jerome Rodriguez "Jolene" Michael was seen on rounds this morning. Pt was hospitalized 05/16 for generalized weakness and confusion with +COVID-19. Pt has had sx for the past 5 days, exposed through daughter in law and son. She currently admits to cough that initially was productive and today feels like she needs to bring up mucus but is having trouble getting it out. She denies shortness of breath at rest or wheezing. Denies chest pain, n/v/d, f/c, headache, or gu symptoms. With ambulating she does get winded. She is now requiring supplemental oxygen, whereas yesterday she was not. She lives alone but family checks in on her frequently. Review of Systems Review of Systems: CONSTITUTIONAL: +generalized weakness. Denies weight loss/gain, fever and chills. HEENT: Denies changes in vision and hearing. RESPIRATORY: +dry cough. Denies SOB, wheezing. CV: Denies palpitations, CP, lower extremity edema, orthopnea, PND. GI: Denies abdominal pain, nausea, vomiting and diarrhea. : Denies dysuria and urinary frequency, urgency, hesitancy. MUSCULOSKELETAL: Denies myalgia and joint pain. SKIN: Denies rash and pruritus. NEUROLOGICAL: Denies headache, syncope, focal weakness, numbness, tingling. PSYCHIATRIC: Denies recent changes in mood. Denies anxiety and depression. Physical Exam Physical Exam: GENERAL: 86 yo elderly WF, Well-developed, well-nourished. NAD. LUNGS: No accessory muscle use. Scattered rhonchi and expiratory wheezes. CARDIOVASCULAR: Regular rate and rhythm. 2/6 ISABELLA. No G/R. No JVD. ABDOMEN: Soft, non-tender and non-distended. No palpable masses. BS normal x 4 quad. EXTREMITIES: No edema. Non-tender. Peripheral pulses +2/4. NEUROLOGIC: A&O x3. PSYCHIATRIC: Cooperative. Appropriate mood and affect. SKIN: Warm, dry, intact. No rashes or lesions. Results & Data Results & Data ([facility]) Vital Signs (Past 12 Hours) Vital Signs Temp Pulse Resp BP BP Pulse Ox 05/18/21 16:00 37.0 C 76 28 H 130/65 97 05/18/21 13:33 92 05/18/21 07:40 37.1 C 77 28 H 154/76 H 95 Laboratory Results 05/18/21 06:00 05/18/21 06:[address] 05/17/21 11:10 CT chest diagnostic wo con CT DOSE: 188.96 mGy.cm CLINICAL HISTORY: 86 years-old Female with 2 cm RUL lesion. Follow-up study in a patient with postinflammatory scarring and right upper lobe opacity TECHNIQUE: Multiaxial CT images of the chest were performed without contrast. A dose lowering technique was utilized adhering to the principles of ALARA. COMPARISON: Chest radiograph 05/16/2021, 11/24/2020, 12/12/2019 and 11/14/2019, CT abdomen and pelvis 11/30/2020 FINDINGS: No thyroid nodule. No pathologically enlarged lymph nodes. The heart is normal in size without pericardial effusion. Moderate coronary artery calcifications. Atherosclerosis of the thoracic aorta without aneurysm. Fusiform aneurysmal dilation of the upper abdominal aorta measures up to 4.7 x 4.5 cm which is unchanged from prior. Mild biapical pleural-parenchymal scarring with mild emphysema. There is no pneumothorax, pleural effusion or overt pulmonary edema. There is a mild bibasilar mucous plugging are noted along with bilateral bronchial wall thickening. Subpleural reticular opacities with intermixed groundglass densities are noted within all lobes bilaterally. There is a 2.6 x 1.3 cm irregular opacity of the right upper lobe on image 85 series 4 which correlates with the findings seen on comparison radiographs. This is present within the area of prior consolidation seen on the 11/14/2019 exam. There are a few tiny calcified pulmonary granulomata present. 5 mm solid nodule of the right middle lobe on image 175 series 4 and 4 mm solid nodule of the left lower lobe are stable from 11/30/2020. 3 mm solid nodule of the left lung apex on image 50 of series 4. The central airways are patent. No acute process of the imaged upper abdomen. Tiny hiatal hernia. 6 mm lymph node adjacent to distal esophagus on image 217 has slightly increased in size from prior. Cholelithiasis. Unremarkable soft tissues. There is no acute fracture. Chronic L1 compression deformity with retropulsion is unchanged. IMPRESSION: 1. Multilobar subpleural reticular interstitial opacities with groundglass densities are suggestive of an infectious or inflammatory pneumonitis such as viral pneumonia. 2. Irregular 2.6 x 1.3 cm nodular opacity of the right upper lobe correlates with the radiographic abnormality and is present within ab area of prior consolidation seen on the 11/14/2019 exam. Postinflammatory scarring is favored, however a 12 month follow-up chest CT is recommended to further evaluate. 3. There are a few scattered low suspicion subcentimeter bilateral solid pulmonary nodules. The 5 mm right middle lobe and 4 mm left lower lobe nodules are unchanged from 11/30/2020. 4. 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 5. Cholelithiasis. ACT 112: Negative or not required by law. Electronically signed by: Pablo Major M.D. 05/17/2021 12:52 PM PG Care Time/CCT Total # of Minutes Spent Total Time Spent with Patient: Total time spent is greater than 50% in coordination of care (as documented) at patient's floor/unit and/or counseling patient: Coding Level of Care Code 92078 Subseq Hosp Care Lvl 3 Diagnoses COPD (chronic obstructive pulmonary disease) J44.9 Depression F32.9 Depression Type: unspecified Hypothyroidism E03.9 Hypothyroidism type: acquired Hypertension I10 Hypertension type: essential hypertension Abnormal urinalysis R82.90 Right pulmonary lesion J98.4 Pneumonia due to COVID-19 virus U07.1; J12.82 (1) Depression Depression Type: unspecified Qualified Code(s): F32.9 - Major depressive disorder, single episode, unspecified (2) Hypothyroidism Hypothyroidism type: acquired Qualified Code(s): E03.9 - Hypothyroidism, unspecified (3) Hypertension Hypertension type: essential hypertension Qualified Code(s): I10 - Essential (primary) hypertension
[2021-05-18] MEDS: ALBUT/IPRATROP 3MG/0.5MG NEB 3 ML VIAL NEB SCH ×2 (17:29→19:29)
[2021-05-19] MEDS ORDERED: MELATONIN 3 MG TAB PO PRN (02:13)
[2021-05-19] MEDS: LEVOTHYROXINE SODIUM 50 MCG TABLET PO SCH (05:41)
[2021-05-19] MEDS: ALBUT/IPRATROP 3MG/0.5MG NEB 3 ML VIAL NEB SCH ×2 (07:28→20:07)
[2021-05-19 07:35] LABS: BUN Creatinine Ratio 16.3 (10-20); Creatinine Clr Calc Pharmacy 33.8 ml/min; Est GFR (African American) 59.5 ml/min; Est GFR (Non-African American) 51.3 ml/min; Magnesium 2.2 mg/dl (1.8-2.4)
[2021-05-19 07:57] LABS: Eosinophils # (auto) 0.01 K/uL (0-0.5); Eosinophils % (auto) 0.5 %; Hematocrit (blood only) 42.7 % (37-47); Hemoglobin 14.4 g/dL (12.0-16.0); Lymphocytes # (auto) 0.75 K/uL (1.2-3.4); Lymphocytes % (auto) 37.5 %; Mean Corpuscular Hemoglobin 30.9 pg (25-34); Mean Corpuscular Hgb Conc 33.7 g/dL (32-36); Mean Corpuscular Volume 91.6 fL (80-100); Mean Platelet Volume 10.7 fL (7.4-10.4); Neutrophils # (auto) 1.04 K/uL (1.4-6.5); Platelet Count 243 K/uL (130-400); RDW Coefficient of Variation 14.8 % (11.5-14.5); RDW Standard Deviation 49.6 fL (36.4-46.3); Red Blood Count 4.66 M/uL (4.2-5.4)
[2021-05-19] MEDS: PANTOprazole 40 MG TAB PO SCH ×2 (08:34→19:49)
[2021-05-19] MEDS: guaiFENesin 600 MG TABCR PO SCH ×2 (08:34→19:49)
[2021-05-19] MEDS: amLODIPine BESYLATE 5 MG TAB PO SCH (08:35)
[2021-05-19] MEDS: dexAMETHasone 6 MG in SYRINGE 0 ML IV SCH (08:35)
[2021-05-19] MEDS: UMECLIDINIUM BROMIDE 62.5MCG/BLISTER 7 PUFFS/INHALER INH SCH (08:35)
[2021-05-19] MEDS: CITALOPRAM 20 MG TAB PO SCH (08:35)
[2021-05-19] MEDS: ENOXAPARIN INJ 40 MG/0.4 ML SYR SQ SCH (08:35)
[2021-05-19] MEDS: FLUTICASONE/VILANTEROL 200/25MCG 14 PUFFS/INHALER INH SCH (08:35)
[2021-05-19] MEDS: REMDESIVIR 100 MG in SODIUM CHLORIDE 0.9% 230 ML IV SCH (12:57)
[2021-05-19] MEDS: SODIUM CHLORIDE 0.9% 10ML FLUSH IV SCH (12:57)
--- NOTE | 2021-05-19 14:22 | Hospitalist Progress Note ---
Date of Service May 19, 2021 Assessment & Plan (1) Pneumonia due to COVID-19 virus: Plan: 86yo female presenting with Covid-19 infection. She is on day 6 of symptoms. Patient is now requiring supplemental O2. -Patient lives at home alone and is presently not safe to go home with her weakness and confusion. Daughter anticipates being able to care for her mother when she is medically stable for discharge. -Continue isolation precautions -Was requiring 2L of supplemental O2 as of 05/18 but today weaned off -- goal pulse ox 88-92% -Initiate Decadron 6mg IV daily x 10 days (or until d/c whichever comes first) and Remdesivir (today day #2/5) -Tylenol PRN pain or fever -Tessalon PRN cough -Continue Mucinex -Routine neb treatments -Flutter Valve q4h and Incentive spirometry -CRP rising, this AM 2.57 -Will need two step pulse ox prior to d/c (2) COPD (chronic obstructive pulmonary disease): Plan: Patient with history of mild COPD. She follows with Pulmonary for this issue - last seen 01/03/2021. -Continue Tiotropium -Continue Breo-ellipta -Albuterol PRN -Add mucolytics as noted above (3) Depression: Plan: Chronic -Continue Celexa 10mg po daily (4) Hypothyroidism: Plan: Patient with elevated TSH of 8.79, normal Free T4=1.2 -Continue home Synthroid of 50 mcg daily (5) Hypertension: Plan: Chronic. Stable -Continue Amlodipine 5mg po daily -Monitor BP (6) Abnormal urinalysis: Plan: -urine cx growing mixed organisms -No sensitivities to follow -No further need for IV abx therapy -D/c Rocephin (7) Right pulmonary lesion: Plan: -Incidentally noted on CXR -Noted results above from CT chest w/o contrast -Suspect this represents post inflammatory scarring, will need f/u CT chest in 1 year Plan: Follow up labs in AM including CRP Ppx - Lovenox 40mg sq daily Code - DNR/DNI per discussion with patient Continue therapy services D/C planning, CM contacted daughter, plan is for her to be d/c'd to her daughter's home with home health services once medically stable Admission and Anticipated Discharge Date Admission Date: May 16, 2021 Subjective Jennifer "Pat" Michael was seen on rounds this morning. Pt was hospitalized 05/16 for generalized weakness and confusion with +COVID-19. Pt has had sx for the past 5 days, exposed through daughter in law and son. She currently admits to cough that initially was productive and today feels like she needs to bring up mucus but is having trouble getting it out. She denies shortness of breath at rest or wheezing. Denies chest pain, n/v/d, f/c, headache, or gu symptoms. With ambulating she does get mildly winded. As of yesterday, pt was requiring 2L supplemental O2. This morning, sats are in the mid to high 90s on 2L supplemental O2, has since been weaned off of oxygen and current sats are 90- 92%. Review of Systems Review of Systems: CONSTITUTIONAL: +generalized weakness. Denies weight loss/g ain, fever and chills. HEENT: Denies changes in vision and hearing. RESPIRATORY: +dry cough. Denies SOB, wheezing. CV: Denies palpitations, CP, lower extremity edema, orthopnea, PND. GI: Denies abdominal pain, nausea, vomiting and diarrhea. : Denies dysuria and urinary frequency, urgency, hesitancy. MUSCULOSKELETAL: Denies myalgia and joint pain. SKIN: Denies rash and pruritus. NEUROLOGICAL: Denies headache, syncope, focal weakness, numbness, tingling. PSYCHIATRIC: Denies recent changes in mood. Denies anxiety and depression. Physical Exam Physical Exam: GENERAL: 86 yo elderly WF, Well-developed, well-nourished. NAD. LUNGS: No accessory muscle use. Scattered rhonchi and expiratory wheezes. CARDIOVASCULAR: Regular rate and rhythm. 2/6 ISABELLA. No G/R. No JVD. ABDOMEN: Soft, non-tender and non-distended. No palpable masses. BS normal x 4 quad. EXTREMITIES: No edema. Non-tender. Peripheral pulses +2/4. NEUROLOGIC: A&O x3. PSYCHIATRIC: Cooperative. Appropriate mood and affect. SKIN: Warm, dry, intact. No rashes or lesions. Results & Data Results & Data ([facility]) Vital Signs (Past 12 Hours) Vital Signs Temp Pulse Resp BP Pulse Ox 05/19/21 11:40 90 05/19/21 07:29 71 20 96 05/19/21 07:22 36.6 C 72 20 127/75 97 Laboratory Results 05/19/21 06:01 05/19/21 06:01 PG Care Time/CCT Total # of Minutes Spent Total Time Spent with Patient: Total time spent is greater than 50% in coordination of care (as documented) at patient's floor/unit and/or counseling patient: Coding Level of Care Code 07138 Subseq Hosp Care Lvl 2 Diagnoses Pneumonia due to COVID-19 virus U07.1; J12.82 COPD (chronic obstructive pulmonary disease) J44.9 Depression F32.9 Depression Type: unspecified Hypothyroidism E03.9 Hypothyroidism type: acquired Hypertension I10 Hypertension type: essential hypertension Abnormal urinalysis R82.90 Right pulmonary lesion J98.4 (1) Depression Depression Type: unspecified Qualified Code(s): F32.9 - Major depressive disorder, single episode, unspecified (2) Hypothyroidism Hypothyroidism type: acquired Qualified Code(s): E03.9 - Hypothyroidism, unspecified (3) Hypertension Hypertension type: essential hypertension Qualified Code(s): I10 - Essential (primary) hypertension
[2021-05-20] MEDS: LEVOTHYROXINE SODIUM 50 MCG TABLET PO SCH (05:33)
[2021-05-20 06:35] LABS: Basophils # (auto) 0.01 K/uL (0-0.2); Basophils % (auto) 0.2 %; Hematocrit (blood only) 40.9 % (37-47); Hemoglobin 13.7 g/dL (12.0-16.0); Immature Granulocytes # (auto) 0.02 K/uL (0.00-0.02); Immature Granulocytes % (auto) 0.5 %; Lymphocytes # (auto) 0.76 K/uL (1.2-3.4); Lymphocytes % (auto) 17.3 %; Mean Corpuscular Hemoglobin 30.2 pg (25-34); Mean Corpuscular Hgb Conc 33.5 g/dL (32-36); Mean Corpuscular Volume 90.1 fL (80-100); Mean Platelet Volume 10.1 fL (7.4-10.4); Monocytes # (auto) 0.44 K/uL (0.11-0.59); Neutrophils # (auto) 3.16 K/uL (1.4-6.5); Platelet Count 271 K/uL (130-400); RDW Coefficient of Variation 14.4 % (11.5-14.5); RDW Standard Deviation 47.5 fL (36.4-46.3); Red Blood Count 4.54 M/uL (4.2-5.4); White Blood Count 4.39 K/uL (4.8-10.8)
[2021-05-20 07:06] LABS: Albumin Level 3.2 gm/dl (3.4-5.0); BUN Creatinine Ratio 21.2 (10-20); Calcium 9.1 mg/dl (8.5-10.1); Est GFR (African American) 68.5 ml/min; Est GFR (Non-African American) 59.1 ml/min; Potassium 3.8 mmol/L (3.5-5.1)
[2021-05-20 07:09] LABS: Albumin Globulin Ratio 0.9 (0.9-2); Bilirubin,Total 0.5 mg/dl (0.2-1); C Reactive Protein 1.16 mg/dl (0-0.29); Globulin 3.6 gm/dl (2.5-4.0); Total Protein 6.8 gm/dl (6.4-8.2)
[2021-05-20] MEDS: guaiFENesin 600 MG TABCR PO SCH ×2 (07:40→21:14)
[2021-05-20] MEDS: FLUTICASONE/VILANTEROL 200/25MCG 14 PUFFS/INHALER INH SCH (07:40)
[2021-05-20] MEDS: UMECLIDINIUM BROMIDE 62.5MCG/BLISTER 7 PUFFS/INHALER INH SCH (07:40)
[2021-05-20] MEDS: CITALOPRAM 20 MG TAB PO SCH (07:40)
[2021-05-20] MEDS: dexAMETHasone 6 MG in SYRINGE 0 ML IV SCH (07:40)
[2021-05-20] MEDS: PANTOprazole 40 MG TAB PO SCH ×2 (07:40→21:14)
[2021-05-20] MEDS: amLODIPine BESYLATE 5 MG TAB PO SCH (07:40)
[2021-05-20] MEDS: ENOXAPARIN INJ 40 MG/0.4 ML SYR SQ SCH (07:41)
[2021-05-20] MEDS: ALBUT/IPRATROP 3MG/0.5MG NEB 3 ML VIAL NEB SCH ×2 (08:07→19:49)
[2021-05-20] MEDS: REMDESIVIR 100 MG in SODIUM CHLORIDE 0.9% 230 ML IV SCH (12:04)
[2021-05-20] MEDS: SODIUM CHLORIDE 0.9% 10ML FLUSH IV SCH (13:02)
--- NOTE | 2021-05-20 13:46 | Hospitalist Progress Note ---
Date of Service May 20, 2021 Assessment & Plan (1) Pneumonia due to COVID-19 virus: Plan: 86yo female presenting with Covid-19 infection. She is on day 7 of symptoms. -Continue isolation precautions -Was requiring 2L of supplemental O2 as of 05/18 but today weaned off -- goal pulse ox 88-92%, continue supplemental O2 w/ ambulation -Remains on Decadron 6mg IV daily, day 3/10 days and Remdesivir (today day #3/5) -Tylenol PRN pain or fever -Tessalon PRN cough -Continue Mucinex -Routine neb treatments -Flutter Valve q4h and Incentive spirometry -CRP trending back down today 1.16 (2) COPD (chronic obstructive pulmonary disease): Plan: Patient with history of mild COPD. She follows with Pulmonary for this issue - last seen 01/03/2021. -Continue Tiotropium -Continue Breo-ellipta -Albuterol PRN -Add mucolytics as noted above (3) Depression: Plan: Chronic -Continue Celexa 10mg po daily (4) Hypothyroidism: Plan: Patient with elevated TSH of 8.79, normal Free T4=1.2 -Continue home Synthroid of 50 mcg daily (5) Hypertension: Plan: Chronic. Stable -Continue Amlodipine 5mg po daily -Monitor BP (6) Abnormal urinalysis: Plan: -urine cx growing mixed organisms -No sensitivities to follow -No further need for IV abx therapy -D/c Rocephin (7) Right pulmonary lesion: Plan: -Incidentally noted on CXR -Noted results above from CT chest w/o contrast -Suspect this represents post inflammatory scarring, will need f/u CT chest in 1 year Plan: Follow up labs in AM including CRP Ppx - Lovenox 40mg sq daily Code - DNR/DNI per discussion with patient Continue therapy services D/C planning, case management on board, plan for [facility] on Wednesday 05/23. Admission and Anticipated Discharge Date Admission Date: May 16, 2021 Jerome Rodriguez "Jolene" Michael was seen on rounds this morning. Pt was hospitalized 05/16 for generalized weakness and confusion with +COVID-19. Pt has had sx for the past 7 days, exposed through daughter in law and son. She continues to c/o cough that is intermittently productive. She denies shortness of breath at rest or whe ezing. Denies chest pain, n/v/d, f/c, headache, or gu symptoms. With ambulating she does get mildly winded. She remains off supplemental O2 at rest. Two step today demonstrates that she does desaturate into the high 80s (documented 87%) on room air with ambulation. Initially, pt was to be discharged home in the care of her daughter; however, her daughter's currently is also ill with COVID and she does not feel comfortable caring for both. Plan is now for pt to go to [facility] ([facility]) on Sunday when they will have a bed. Review of Systems Review of Systems: CONSTITUTIONAL: +generalized weakness. Denies weight loss/gain, fever and chills. HEENT: Denies changes in vision and hearing. RESPIRATORY: +dry cough. Denies SOB, wheezing. CV: Denies palpitations, CP, lower extremity edema, orthopnea, PND. GI: Denies abdominal pain, nausea, vomiting and diarrhea. : Denies dysuria and urinary frequency, urgency, hesitancy. MUSCULOSKELETAL: Denies myalgia and joint pain. SKIN: Denies rash and pruritus. NEUROLOGICAL: Denies headache, syncope, focal weakness, numbness, tingling. PSYCHIATRIC: Denies recent changes in mood. Denies anxiety and depression. Physical Exam Physical Exam: GENERAL: 86 yo elderly WF, Well-developed, well-nourished. NAD. LUNGS: No accessory muscle use. Scattered rhonchi and expiratory wheezes. CARDIOVASCULAR: Regular rate and rhythm. 2/6 ISABELLA. No G/R. No JVD. ABDOMEN: Soft, non-tender and non-distended. No palpable masses. BS normal x 4 quad. EXTREMITIES: No edema. Non-tender. Peripheral pulses +2/4. NEUROLOGIC: A&O x3. PSYCHIATRIC: Cooperative. Appropriate mood and affect. SKIN: Warm, dry, intact. No rashes or lesions. Results & Data Results & Data ([facility]) Vital Signs (Past 12 Hours) Vital Signs Temp Pulse Pulse Pulse Pulse Pulse Resp 05/20/21 11:19 95 H 101 H 89 87 05/20/21 08:07 78 20 05/20/21 07:31 36.4 C L 81 16 Resp Resp Resp Resp BP Pulse Ox Pulse Ox 05/20/21 11:19 18 18 18 18 93 05/20/21 08:07 94 05/20/21 07:31 153/79 H 95 Pulse Ox Pulse Ox Pulse Ox 05/20/21 11:19 87 L 91 91 05/20/21 08:07 05/20/21 07:31 Laboratory Results 05/20/21 05:56 05/20/21 05:56 PG Care Time/CCT Total # of Minutes Spent Total Time Spent with Patient: Total time spent is greater than 50% in coordination of care (as documented) at patient's floor/unit and/or counseling patient: Coding Level of Care Code 36746 Subseq Hosp Care Lvl 2 Diagnoses Pneumonia due to COVID-19 virus U07.1; J12.82 COPD (chronic obstructive pulmonary disease) J44.9 Depression F32.9 Depression Type: unspecified Hypothyroidism E03.9 Hypothyroidism type: acquired Hypertension I10 Hypertension type: essential hypertension Abnormal urinalysis R82.90 Right pulmonary lesion J98.4 (1) Depression Depression Type: unspecified Qualified Code(s): F32.9 - Major depressive disorder, single episode, unspecified (2) Hypothyroidism Hypothyroidism type: acquired Qualified Code(s): E03.9 - Hypothyroidism, unspecified (3) Hypertension Hypertension type: essential hypertension Qualified Code(s): I10 - Essential (primary) hypertension
[2021-05-21] MEDS: LEVOTHYROXINE SODIUM 50 MCG TABLET PO SCH (06:25)
[2021-05-21] MEDS: ALBUT/IPRATROP 3MG/0.5MG NEB 3 ML VIAL NEB SCH ×2 (07:36→19:55)
[2021-05-21] MEDS: PANTOprazole 40 MG TAB PO SCH ×2 (08:57→20:05)
[2021-05-21] MEDS: CITALOPRAM 20 MG TAB PO SCH (08:57)
[2021-05-21] MEDS: amLODIPine BESYLATE 5 MG TAB PO SCH (08:57)
[2021-05-21] MEDS: dexAMETHasone 6 MG in SYRINGE 0 ML IV SCH (08:57)
[2021-05-21] MEDS: guaiFENesin 600 MG TABCR PO SCH ×2 (08:57→20:05)
[2021-05-21] MEDS: FLUTICASONE/VILANTEROL 200/25MCG 14 PUFFS/INHALER INH SCH (08:58)
[2021-05-21] MEDS: ENOXAPARIN INJ 40 MG/0.4 ML SYR SQ SCH (08:58)
[2021-05-21] MEDS: UMECLIDINIUM BROMIDE 62.5MCG/BLISTER 7 PUFFS/INHALER INH SCH (08:58)
[2021-05-21] MEDS: ONDANSETRON INJ 2 MG/ML 2 ML VIAL IV PRN (10:46)
[2021-05-21] MEDS: REMDESIVIR 100 MG in SODIUM CHLORIDE 0.9% 230 ML IV SCH (11:08)
[2021-05-21] MEDS: SODIUM CHLORIDE 0.9% 10ML FLUSH IV SCH (11:11)
--- NOTE | 2021-05-21 13:52 | Hospitalist Progress Note ---
Date of Service May 21, 2021 Assessment & Plan (1) Pneumonia due to COVID-19 virus: Plan: 86yo female presenting with Covid-19 infection. She is on day 8 of symptoms. -Continue isolation precautions -Was requiring 2L of supplemental O2 as of 05/18 but today weaned off -- goal pulse ox 88-92%, continue supplemental O2 (2L) w/ ambulation -Remains on Decadron 6mg IV daily, day 3/10 days and Remdesivir (today day #4/5) -Tylenol PRN pain or fever -Tessalon PRN cough -Continue Mucinex -Routine neb treatments -Flutter Valve q4h and Incentive spirometry -CRP trending back down today 1.16 (2) COPD (chronic obstructive pulmonary disease): Plan: Patient with history of mild COPD. She follows with Pulmonary for this issue - last seen 01/03/2021. -Continue Tiotropium -Continue Breo-ellipta -Albuterol PRN -Add mucolytics as noted above (3) Depression: Plan: Chronic -Continue Celexa 10mg po daily (4) Hypothyroidism: Plan: Patient with elevated TSH of 8.79, normal Free T4=1.2 -Continue home Synthroid of 50 mcg daily (5) Hypertension: Plan: Chronic. Stable -Continue Amlodipine 5mg po daily -Monitor BP (6) Right pulmonary lesion: Plan: -Incidentally noted on CXR -Noted results above from CT chest w/o contrast -Suspect this represents post inflammatory scarring, will need f/u CT chest in 1 year Plan: Follow up labs in AM Ppx - Lovenox 40mg sq daily Code - DNR/DNI Continue therapy services D/C planning, case management on board, plan for [facility] on Wednesday 05/23. Admission and Anticipated Discharge Date Admission Date: May 16, 2021 Jerome Rodriguez "Jolene" Michael was seen on rounds this morning. Pt was hospitalized 05/16 for generalized weakness and confusion with +COVID-19. Pt has had sx for the past 8 days, exposed through daughter in law and son. She continues to c/o cough that is intermittently productive. She denies shortness of breath at rest or wheezing. Today she is anxious, c/o nausea but has not been willing to let nursing medicate her. Denies chest pain, v/d, f/c, headache, or gu symptoms. With ambulating she does get mildly winded. She remains off supplemental O2 at rest. Two step 05/20 demonstrated desaturation into the high 80s (documented 87%) on room air with ambulation. Initially, pt was to be discharged home in the care of her daughter; however, her daughter's currently is also ill with COVID and she does not feel comfortable caring for both. Plan is now for pt to go to [facility] ([facility]) on Sunday when they will have a bed. Review of Systems Review of Systems: CONSTITUTIONAL: +generalized weakness. Denies weight loss/gain, fever and chills. HEENT: Denies changes in vision and hearing. RESPIRATORY: +dry cough. Denies SOB, wheezing. CV: Denies palpitations, CP, lower extremity edema, orthopnea, PND. GI: +nausea. Denies abdominal pain, vomiting and diarrhea. : Denies dysuria and urinary frequency, urgency, hesitancy. MUSCULOSKELETAL: Denies myalgia and joint pain. SKIN: Denies rash and pruritus. NEUROLOGICAL: Denies headache, syncope, focal weakness, numbness, tingling. PSYCHIATRIC: Denies recent changes in mood. Denies anxiety and depression. Physical Exam Physical Exam: GENERAL: 86 yo elderly WF, well-developed, well-nourished. NAD. LUNGS: No accessory muscle use. Scattered coarse rhonchi and expiratory wheezes. CARDIOVASCULAR: Regular rate and rhythm. 2/6 ISABELLA. No G/R. No JVD. ABDOMEN: Soft, non-tender and non-distended. No palpable masses. BS normal x 4 quad. EXTREMITIES: No edema. Non-tender. Peripheral pulses +2/4. NEUROLOGIC: A&O x3. PSYCHIATRIC: Cooperative. Appropriate mood and affect. SKIN: Warm, dry, intact. No rashes or lesions. Results & Data Results & Data ([facility]) Vital Signs (Past 12 Hours) Vital Signs Temp Pulse Resp BP Pulse Ox 05/21/21 07:38 89 18 98 05/21/21 07:17 36.6 C 79 20 142/63 H 94 Laboratory Results no lab data today PG Care Time/CCT Total # of Minutes Spent Total Time Spent with Patient: Total time spent is greater than 50% in coordination of care (as documented) at patient's floor/unit and/or counseling patient: Coding Level of Care Code 71599 Subseq Hosp Care Lvl 1 Diagnoses Pneumonia due to COVID-19 virus U07.1; J12.82 COPD (chronic obstructive pulmonary disease) J44.9 Depression F32.9 Depression Type: unspecified Hypothyroidism E03.9 Hypothyroidism type: acquired Hypertension I10 Hypertension type: essential hypertension Right pulmonary lesion J98.4 (1) Depression Depression Type: unspecified Qualified Code(s): F32.9 - Major depressive disorder, single episode, unspecified (2) Hypothyroidism Hypothyroidism type: acquired Qualified Code(s): E03.9 - Hypothyroidism, unspecified (3) Hypertension Hypertension type: essential hypertension Qualified Code(s): I10 - Essential (primary) hypertension
[2021-05-22] MEDS: LEVOTHYROXINE SODIUM 50 MCG TABLET PO SCH (06:24)
[2021-05-22] MEDS: ALBUT/IPRATROP 3MG/0.5MG NEB 3 ML VIAL NEB SCH ×2 (07:27→19:34)
[2021-05-22 08:47] LABS: Basophils # (auto) 0.01 K/uL (0-0.2); Basophils % (auto) 0.1 %; Hematocrit (blood only) 43.1 % (37-47); Hemoglobin 14.6 g/dL (12.0-16.0); Immature Granulocytes # (auto) 0.03 K/uL (0.00-0.02); Immature Granulocytes % (auto) 0.3 %; Lymphocytes # (auto) 1.16 K/uL (1.2-3.4); Lymphocytes % (auto) 13.2 %; Mean Corpuscular Hemoglobin 30.7 pg (25-34); Mean Corpuscular Hgb Conc 33.9 g/dL (32-36); Mean Corpuscular Volume 90.7 fL (80-100); Mean Platelet Volume 10.2 fL (7.4-10.4); Monocytes # (auto) 0.78 K/uL (0.11-0.59); Monocytes % (auto) 8.9 %; Neutrophils % (auto) 77.5 %; Platelet Count 304 K/uL (130-400); RDW Coefficient of Variation 14.4 % (11.5-14.5); RDW Standard Deviation 48.4 fL (36.4-46.3); Red Blood Count 4.75 M/uL (4.2-5.4); White Blood Count 8.78 K/uL (4.8-10.8)
[2021-05-22 09:18] LABS: Albumin Level 3.4 gm/dl (3.4-5.0); BUN Creatinine Ratio 17.7 (10-20); Bilirubin Direct 0.2 mg/dl (0-0.2); Calcium 9.2 mg/dl (8.5-10.1); Creatinine Clr Calc Pharmacy 37.2 ml/min; Est GFR (African American) 66.7 ml/min; Est GFR (Non-African American) 57.5 ml/min; Potassium 3.7 mmol/L (3.5-5.1)
[2021-05-22 09:21] LABS: Bilirubin,Total 0.6 mg/dl (0.2-1); Total Protein 7.1 gm/dl (6.4-8.2)
[2021-05-22] MEDS: guaiFENesin 600 MG TABCR PO SCH ×2 (09:29→20:59)
[2021-05-22] MEDS: ENOXAPARIN INJ 40 MG/0.4 ML SYR SQ SCH (09:29)
[2021-05-22] MEDS: CITALOPRAM 20 MG TAB PO SCH (09:29)
[2021-05-22] MEDS: amLODIPine BESYLATE 5 MG TAB PO SCH (09:29)
[2021-05-22] MEDS: dexAMETHasone 6 MG in SYRINGE 0 ML IV SCH (09:29)
[2021-05-22] MEDS: PANTOprazole 40 MG TAB PO SCH ×2 (09:30→20:58)
[2021-05-22] MEDS: UMECLIDINIUM BROMIDE 62.5MCG/BLISTER 7 PUFFS/INHALER INH SCH (09:30)
[2021-05-22] MEDS: FLUTICASONE/VILANTEROL 200/25MCG 14 PUFFS/INHALER INH SCH (09:30)
--- NOTE | 2021-05-22 11:43 | Hospitalist Progress Note ---
Date of Service May 22, 2021 Assessment & Plan (1) Pneumonia due to COVID-19 virus: Plan: 86yo female presenting with Covid-19 infection. She is on day 8 of symptoms. -Continue isolation precautions -Was requiring 2L of supplemental O2 as of 05/18 but was weaned off on 05/19 -- goal pulse ox 88-92% -Remains on Decadron 6mg IV daily, day 10/11 and will complete Remdesivir today -Tylenol PRN pain or fever -Tessalon PRN cough -Continue Mucinex -Routine neb treatments -Flutter Valve q4h and Incentive spirometry -Two step performed 05/20, needs 2L with ambulation (2) COPD (chronic obstructive pulmonary disease): Plan: Patient with history of mild COPD. She follows with Pulmonary for this issue - last seen 01/03/2021. -Continue Tiotropium -Continue Breo-ellipta -Albuterol PRN -Continue mucolytics as noted above (3) Depression: Plan: Chronic -Continue Celexa 10mg po daily (4) Hypothyroidism: Plan: Patient with elevated TSH of 8.79, normal Free T4=1.2 -Continue home Synthroid of 50 mcg daily (5) Hypertension: Plan: Chronic. Stable -Continue Amlodipine 5mg po daily -Monitor BP (6) Right pulmonary lesion: Plan: -Incidentally noted on CXR -Noted results above from CT chest w/o contrast -Suspect this represents post inflammatory scarring, will need f/u CT chest in 1 year Plan: Follow up labs in AM Ppx - Lovenox 40mg sq daily Code - DNR/DNI Continue therapy services D/C planning, case management on board, plan for [facility] on Wednesday 05/23. Admission and Anticipated Discharge Date Admission Date: May 16, 2021 Jerome Rodriguez "Jolene" Michael was seen on rounds this morning. Pt was hospitalized 05/16 for generalized weakness and confusion with +COVID-19. Pt has had sx for the past 8 days, exposed through daughter in law and son. She continues to c/o cough that is intermittently productive, seems no better or worse. She denies shortness of breath at rest or wheezing. Denies chest pain, n/v/d, f/c, hea dache, or gu symptoms. With ambulating she does get mildly winded. She remains off supplemental O2 at rest. Two step 05/20 demonstrated desaturation into the high 80s (documented 87%) on room air with ambulation. Initially, pt was to be discharged home in the care of her daughter; however, her daughter's currently is also ill with COVID and she does not feel comfortable caring for both. Plan is now for pt to go to [facility] ([facility]) on Sunday when they will have a bed. Review of Systems Review of Systems: CONSTITUTIONAL: +generalized weakness. Denies weight loss/gain, fever and chills. HEENT: Denies changes in vision and hearing. RESPIRATORY: +dry cough. Denies SOB, wheezing. CV: Denies palpitations, CP, lower extremity edema, orthopnea, PND. GI: +nausea. Denies abdominal pain, vomiting and diarrhea. : Denies dysuria and urinary frequency, urgency, hesitancy. MUSCULOSKELETAL: Denies myalgia and joint pain. SKIN: Denies rash and pruritus. NEUROLOGICAL: Denies headache, syncope, focal weakness, numbness, tingling. PSYCHIATRIC: Denies recent changes in mood. Denies anxiety and depression. Physical Exam Physical Exam: GENERAL: 86 yo elderly WF, well-developed, well-nourished. NAD. LUNGS: No accessory muscle use. Scattered coarse rhonchi and expiratory wheezes. CARDIOVASCULAR: Regular rate and rhythm. 2/6 ISABELLA. No G/R. No JVD. ABDOMEN: Soft, non-tender and non-distended. No palpable masses. BS normal x 4 quad. EXTREMITIES: No edema. Non-tender. Peripheral pulses +2/4. NEUROLOGIC: A&O x3. PSYCHIATRIC: Cooperative. Appropriate mood and affect. SKIN: Warm, dry, intact. No rashes or lesions. Results & Data Results & Data ([facility]) Vital Signs (Past 12 Hours) Vital Signs Temp Pulse Resp BP Pulse Ox 05/22/21 07:27 92 H 20 89 L 05/22/21 07:00 36.5 C 89 20 171/88 H 90 Laboratory Results 05/22/21 07:28 05/22/21 07:28 PG Care Time/CCT Total # of Minutes Spent Total Time Spent with Patient: Total time spent is greater than 50% in coordination of care (as documented) at patient's floor/unit and/or counseling patient: Coding Level of Care Code 06877 Subseq Hosp Care Lvl 2 Diagnoses Pneumonia due to COVID-19 virus U07.1; J12.82 COPD (chronic obstructive pulmonary disease) J44.9 Depression F32.9 Depression Type: unspecified Hypothyroidism E03.9 Hypothyroidism type: acquired Hypertension I10 Hypertension type: essential hypertension Right pulmonary lesion J98.4 (1) Depression Depression Type: unspecified Qualified Code(s): F32.9 - Major depressive disorder, single episode, unspecified (2) Hypothyroidism Hypothyroidism type: acquired Qualified Code(s): E03.9 - Hypothyroidism, unspecified (3) Hypertension Hypertension type: essential hypertension Qualified Code(s): I10 - Essential (primary) hypertension
[2021-05-22] MEDS: REMDESIVIR 100 MG in SODIUM CHLORIDE 0.9% 230 ML IV SCH (12:07)
[2021-05-22] MEDS: SODIUM CHLORIDE 0.9% 10ML FLUSH IV SCH (12:08)
[2021-05-22] MEDS ORDERED: MELATONIN 3 MG TAB PO PRN (19:56)
[2021-05-22] MEDS: BENZONATATE 100 MG CAPSULE PO PRN (21:07)
[2021-05-23] MEDS: QUEtiapine FUMARATE 200 MG TAB PO STA ×2 (00:48→02:49)
[2021-05-23] MEDS: LEVOTHYROXINE SODIUM 50 MCG TABLET PO SCH ×2 (06:11→06:13)
[2021-05-23] MEDS: ALBUT/IPRATROP 3MG/0.5MG NEB 3 ML VIAL NEB SCH ×3 (08:12→20:56)
[2021-05-23] MEDS ORDERED: FORMOTEROL 20 MCG/2 ML VIAL NEB SCH (10:15)
[2021-05-23] MEDS ORDERED: FUROSEMIDE INJ 20 MG/2 ML VIAL IV ONE (10:30)
[2021-05-23] MEDS: PANTOprazole 40 MG TAB PO SCH ×2 (10:39→22:00)
[2021-05-23] MEDS: guaiFENesin 600 MG TABCR PO SCH ×2 (10:39→22:00)
[2021-05-23] MEDS: CITALOPRAM 20 MG TAB PO SCH (10:40)
[2021-05-23] MEDS: dexAMETHasone 6 MG in SYRINGE 0 ML IV SCH ×2 (10:40→22:00)
[2021-05-23] MEDS: amLODIPine BESYLATE 5 MG TAB PO SCH (10:40)
[2021-05-23] MEDS: FLUTICASONE/VILANTEROL 200/25MCG 14 PUFFS/INHALER INH SCH (10:40)
[2021-05-23] MEDS: ENOXAPARIN INJ 40 MG/0.4 ML SYR SQ SCH (10:40)
[2021-05-23] MEDS: UMECLIDINIUM BROMIDE 62.5MCG/BLISTER 7 PUFFS/INHALER INH SCH (10:41)
--- NOTE | 2021-05-23 11:44 | Hospitalist Progress Note ---
Date of Service May 23, 2021 Assessment & Plan (1) Pneumonia due to COVID-19 virus: Plan: 86yo female presenting with Covid-19 infection. Symptom onset 5 days [employer]. -pulse ox 87% on arrival -CXR: no acute process with 2cm lesion in the RUL. - CT groundglass opacities with nodules (see below) -Was requiring 2L of supplemental O2 as of 05/18 but was weaned off on 05/19. As of 05/23, back to requiring 2L (as pulse ox was 83% on RA. Currently 90-92%on 2L)--> seems to have AECOPD likely secondary to covid -Decadron 6mg IV daily, day 11/11 (increase to BID as increased wheezing and hypoxemia 05/23-- ? AECOPD) -completed 5 days Remdesivir -change neb treatments to scheduled for now (again, suspect associated AECOPD) -continue mucolytic agents and antitussives -Flutter Valve q4h and Incentive spirometry (2) COPD (chronic obstructive pulmonary disease): Plan: Patient with history of mild COPD. She follows with Pulmonary for this issue - last seen 01/03/2021. -seen 05/23 and appears to have an AECOPD (decreased air exchange, wheezing and hypoxemia) -change home inhalers to scheduled neb treatments (pulmicort/perforomist and duoneb) -Continue mucolytics as noted above -likely secondary to covid; however, will repeat CXR and add procalcitonin. I am not overly suspicious that patient has an underlying bacterial PNA; however, would have low threshold to add abx ttherapy empirically (3) Depression: Plan: Chronic -Continue Celexa 10mg po daily (4) Hypothyroidism: Plan: Patient with elevated TSH of 8.79, normal Free T4=1.2 -Continue home Synthroid of 50 mcg daily (5) Hypertension: Plan: Chronic. Stable -Continue Amlodipine 5mg po daily -Monitor BP (6) Right pulmonary lesion: Plan: -Incidentally noted on CXR -CT of chest: groundglass opacities. irregular 2.6 x 1.3 cm nodular opacitiy in the RUL that seems consistent with scarring (12 month FU recommended). 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 Family checks on her often but are also sick with Covid. -case mgmt on board-- awaiting placement (no quite medically stable for DC) Plan: to D/W Dr. Holder Admission and Anticipated Discharge Date Admission Date: May 16, 2021 Subjective Patient seen on daily rounds today. Hospitalized 05/16 with Covid pneumonia. Was on day 5 of symptoms upon presentation. Thus far, has remained fairly stable on room air but this morning pulse ox was down to 83 to 86%. Was able to improve with 2 to 3 L of supplemental oxygen. She did not feel significantly short of breath with this. Her main issue has been profound weakness. She lives alone but has family to check on her often. At this point, she is awaiting placement Denies fevers, chills, chest pain, shortness of breath, orthopnea, PND, abdominal pain, nausea or vomiting. Review of Systems Review of Systems: All systems reviewed and are unremarkable except as noted in HPI and below Denies fevers, chills, headache, nasal congestion, sore throat, cough, chest pain, shortness of breath, palpitations, orthopnea, PND, abdominal pain, nausea, vomiting, diarrhea, constipation, dysuria, hematuria, frequency, back pain, joint pain or swelling, easy bruising or bleeding, skin lesions or rashes. Physical Exam Physical Exam: General: Resting comfortably in her hospital bed. Resting comfortably despite low oxygen levels. Does not appear dyspneic. HEENT: Head is AT/NC buccal mucosa is moist and pink Neck: No JVD. Negative hepatojugular reflex Cardiac: Distant Lungs: Breathing comfortably at rest on room air despite low oxygen levels (83%). She does have mild conversational dyspnea. Diminished breath sounds throughout with mid to end expiratory wheezes without W/R/R Abdomen: Normoactive X4. Soft and nontender in all quadrants. Extremities: No peripheral clubbing cyanosis or edema Neuro: A&O X4 cranial nerves II through XII are grossly intact no focal neuro deficits Skin: No obvious skin lesions or rashes Psych: Appropriate affect pleasant and cooperative Results & Data Results & Data ([facility]) Vital Signs (Past 12 Hours) Vital Signs Temp Pulse Resp BP Pulse Ox 05/23/21 08:12 79 18 93 05/23/21 08:03 36.8 C 71 18 166/74 H 91 Laboratory Results 05/22/21 07:28 05/22/21 07:28 PG Care Time/CCT Total # of Minutes Spent Total Time Spent with Patient: Total time spent is greater than 50% in coordination of care (as documented) at patient's floor/unit and/or counseling patient: Coding Level of Care Code 78594 Subseq Hosp Care Lvl 3 Diagnoses Pneumonia due to COVID-19 virus U07.1; J12.82 COPD (chronic obstructive pulmonary disease) J44.9 Depression F32.9 Depression Type: unspecified Hypothyroidism E03.9 Hypothyroidism type: acquired Hypertension I10 Hypertension type: essential hypertension Right pulmonary lesion J98.4 Debility R53.81 (1) Depression Depression Type: unspecified Qualified Code(s): F32.9 - Major depressive disorder, single episode, unspecified (2) Hypothyroidism Hypothyroidism type: acquired Qualified Code(s): E03.9 - Hypothyroidism, unspecified (3) Hypertension Hypertension type: essential hypertension Qualified Code(s): I10 - Essential (primary) hypertension
--- NOTE | 2021-05-23 12:27 | XRay Report ---
XR chest 1V portable HISTORY: 86 years-old Female increasng hypoxemia. Acute hypoxia COMPARISON: Chest radiograph 10/14/2020, chest CT 05/17/2021 TECHNIQUE: Portable AP view of the chest FINDINGS: The cardiac mediastinal and hilar silhouettes are unchanged. No pneumothorax, pleural effusion or ove rt pulmonary edema. Mild ill-defined subpleural prominent bilateral pulmonary opacities are noted wit h stable 2.6 cm nodular density of the right upper lobe. Bones appear grossly intact. IMPRESSION: 1. Slightly progressed bilateral subpleural opacities are suggestive of viral pneumonia. 2. 2.6 cm nodular density of the right upper lobe suggestive of probable scarring is redemonstrated. Please refer to the May 17, [address] for additional details. ACT 112: Negative or not required by law. The above report was generated using voice recognition software. It may contain grammatical, syntax o r spelling errors. Electronically signed by: Pablo Major M.D. 05/23/2021 12:26 PM
[2021-05-23] MEDS: FORMOTEROL 20 MCG/2 ML VIAL NEB SCH ×2 (13:51→20:56)
[2021-05-23] MEDS: BUDESONIDE 0.5 MG/2 ML VIAL (PULMICORT) NEB SCH (20:56)
[2021-05-24] MEDS: ALBUT/IPRATROP 3MG/0.5MG NEB 3 ML VIAL NEB SCH ×4 (01:29→21:31)
[2021-05-24 06:18] LABS: Basophils # (auto) 0.01 K/uL (0-0.2); Basophils % (auto) 0.1 %; Eosinophils # (auto) 0.01 K/uL (0-0.5); Eosinophils % (auto) 0.1 %; Hematocrit (blood only) 40.4 % (37-47); Hemoglobin 13.6 g/dL (12.0-16.0); Immature Granulocytes # (auto) 0.09 K/uL (0.00-0.02); Immature Granulocytes % (auto) 0.9 %; Lymphocytes # (auto) 1.05 K/uL (1.2-3.4); Mean Corpuscular Hemoglobin 30.8 pg (25-34); Mean Corpuscular Hgb Conc 33.7 g/dL (32-36); Mean Corpuscular Volume 91.4 fL (80-100); Mean Platelet Volume 9.7 fL (7.4-10.4); Monocytes % (auto) 8.4 %; Neutrophils # (auto) 7.57 K/uL (1.4-6.5); Neutrophils % (auto) 79.5 %; Platelet Count 304 K/uL (130-400); RDW Coefficient of Variation 14.8 % (11.5-14.5); RDW Standard Deviation 50.3 fL (36.4-46.3); Red Blood Count 4.42 M/uL (4.2-5.4); White Blood Count 9.53 K/uL (4.8-10.8)
[2021-05-24] MEDS: LEVOTHYROXINE SODIUM 50 MCG TABLET PO SCH (06:42)
[2021-05-24 06:47] LABS: Albumin Level 2.9 gm/dl (3.4-5.0); BUN Creatinine Ratio 23.4 (10-20); Calcium 8.9 mg/dl (8.5-10.1); Creatinine Clr Calc Pharmacy 38.9 ml/min; Est GFR (African American) 70.4 ml/min; Est GFR (Non-African American) 60.7 ml/min; Potassium 3.8 mmol/L (3.5-5.1)
[2021-05-24 06:51] LABS: Albumin Globulin Ratio 0.8 (0.9-2); Bilirubin,Total 0.8 mg/dl (0.2-1); C Reactive Protein 1.7 mg/dl (0-0.29); Globulin 3.4 gm/dl (2.5-4.0); Total Protein 6.3 gm/dl (6.4-8.2)
[2021-05-24] MEDS: FORMOTEROL 20 MCG/2 ML VIAL NEB SCH ×2 (08:50→20:07)
[2021-05-24] MEDS: BUDESONIDE 0.5 MG/2 ML VIAL (PULMICORT) NEB SCH ×2 (08:50→20:07)
[2021-05-24] MEDS: ENOXAPARIN INJ 40 MG/0.4 ML SYR SQ SCH (09:11)
[2021-05-24] MEDS: CITALOPRAM 20 MG TAB PO SCH (09:12)
[2021-05-24] MEDS: amLODIPine BESYLATE 5 MG TAB PO SCH (09:12)
[2021-05-24] MEDS: guaiFENesin 600 MG TABCR PO SCH ×2 (09:12→22:05)
[2021-05-24] MEDS: PANTOprazole 40 MG TAB PO SCH ×2 (09:12→22:06)
[2021-05-24] MEDS: FLUTICASONE/VILANTEROL 200/25MCG 14 PUFFS/INHALER INH SCH (09:17)
[2021-05-24] MEDS: dexAMETHasone 6 MG in SYRINGE 0 ML IV SCH ×2 (09:25→22:05)
[2021-05-24] MEDS ORDERED: FUROSEMIDE 20 MG TAB PO ONE (11:47)
--- NOTE | 2021-05-24 15:43 | Hospitalist Progress Note ---
Date of Service May 24, 2021 Assessment & Plan (1) Pneumonia due to COVID-19 virus: Plan: 86yo female presenting with Covid-19 infection. Symptom onset 5 days [employer]. -pulse ox 87% on arrival -CXR: no acute process with 2cm lesion in the RUL. -CT groundglass opacities with nodules (see below) -Was requiring 2L of supplemental O2 as of 05/18 but was weaned off on 05/19. As of 05/23, back to requiring 2L (as pulse ox was 83% on RA)--> seems to have AECOPD likely secondary to covid -Decadron 6mg IV daily, day 12/11 (increased to BID as increased wheezing and hypoxemia on 05/23-- ? AECOPD) -completed 5 days Remdesivir -change neb treatments to scheduled for now (again, suspect associated AECOPD) -continue mucolytic agents and antitussives -Flutter Valve q4h and Incentive spirometry (2) COPD (chronic obstructive pulmonary disease): Plan: Patient with history of mild COPD. She follows with Pulmonary for this issue - last seen 01/03/2021. -seen 05/23 and appears to have an AECOPD (decreased air exchange, wheezing and hypoxemia) -change home inhalers to scheduled neb treatments (pulmicort/perforomist and duoneb) -Continue mucolytics as noted above -procal and repeat CXR performed. I do not suspect associated secondary bacterial infection (CXR showing viral process and procal negative). Interval improvement today with increased decadron and aggressive pulmonary toilette (3) Depression: Plan: Chronic -Continue Celexa 10mg po daily (4) Hypothyroidism: Plan: Patient with elevated TSH of 8.79, normal Free T4=1.2 -Continue home Synthroid of 50 mcg daily (5) Hypertension: Plan: Chronic. Stable -Continue Amlodipine 5mg po daily -Monitor BP (6) Right pulmonary lesion: Plan: -Incidentally noted on CXR -CT of chest: groundglass opacities. irregular 2.6 x 1.3 cm nodular opacitiy in the RUL that seems consistent with scarring (12 month FU recommended). 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 Family checks on her often but are also sick with Covid. -case mgmt on board-- plan is for [facility] (not quite medically stable for DC) Plan: D/W Dr. Holder Admission and Anticipated Discharge Date Admission Date: May 16, 2021 Subjective Patient seen on daily rounds today. Complains of generalized weakness/fatigue but overall feels somewhat better today compared to yesterday. Does get dyspneic with exertion but overall her breathing at rest is improved. She does report intermittent audible wheezes. Cough remains very loose but nonproductive. Denies fevers, chills, chest pain, orthopnea, PND, abdominal pain, nausea or vomiting. Nursing voices no complaints or concerns. Review of Systems Review of Systems: All systems reviewed and are unremarkable except as noted in HPI and below Denies fevers, chills, headache, nasal congestion, sore throat, cough, chest pain, palpitations, orthopnea, PND, abdominal pain, nausea, vomiting, diarrhea, constipation, dysuria, hematuria, frequency, back pain, joint pain or swelling, easy bruising or bleeding, skin lesions or rashes. Physical Exam Physical Exam: General: Seen while toileting today HEENT: Head is AT/NC buccal mucosa is moist and pink Neck: No JVD. Negative hepatojugular reflex Cardiac: RRR but very distant heart sounds Lungs: Speaking full sentences on supplemental oxygen. Breathing nonlabored. No accessory muscle use. Significantly improved air exchange throughout with coarse scattered rhonchi that mobilizes with coughing. End expiratory wheezes predominantly at the bases Abdomen: Normoactive X4. Soft and nontender in all quadrants. Extremities: No peripheral clubbing cyanosis or edema Neuro: A&O X4 cranial nerves II through XII are grossly intact no focal neuro deficits Skin: No obvious skin lesions or rashes Psych: Appropriate affect pleasant and cooperative Results & Data Results & Data ([facility]) Vital Signs (Past 12 Hours) Vital Signs Temp Pulse Resp BP Pulse Ox 05/24/21 14:10 90 16 97 05/24/21 12:46 94 05/24/21 08:50 85 93 05/24/21 07:58 36.8 C 82 16 160/80 H 98 PG Care Time/CCT Total # of Minutes Spent Total Time Spent with Patient: Total time spent is greater than 50% in coordination of care (as documented) at patient's floor/unit and/or counseling patient: Coding Level of Care Code 12529 Subseq Hosp Care Lvl 2 Diagnoses Pneumonia due to COVID-19 virus U07.1; J12.82 COPD (chronic obstructive pulmonary disease) J44.9 Depression F32.9 Depression Type: unspecified Hypothyroidism E03.9 Hypothyroidism type: acquired Hypertension I10 Hypertension type: essential hypertension Right pulmonary lesion J98.4 Debility R53.81 (1) Depression Depression Type: unspecified Qualified Code(s): F32.9 - Major depressive disorder, single episode, unspecified (2) Hypothyroidism Hypothyroidism type: acquired Qualified Code(s): E03.9 - Hypothyroidism, unspecified (3) Hypertension Hypertension type: essential hypertension Qualified Code(s): I10 - Essential (primary) hypertension
[2021-05-25] MEDS: ALBUT/IPRATROP 3MG/0.5MG NEB 3 ML VIAL NEB SCH ×3 (00:13→12:38)
[2021-05-25] MEDS: LEVOTHYROXINE SODIUM 50 MCG TABLET PO SCH (05:44)
[2021-05-25 06:14] LABS: Basophils # (auto) 0.02 K/uL (0-0.2); Basophils % (auto) 0.3 %; Hemoglobin 13.9 g/dL (12.0-16.0); Immature Granulocytes # (auto) 0.15 K/uL (0.00-0.02); Immature Granulocytes % (auto) 1.9 %; Lymphocytes # (auto) 0.58 K/uL (1.2-3.4); Lymphocytes % (auto) 7.5 %; Mean Corpuscular Hemoglobin 30.6 pg (25-34); Mean Corpuscular Hgb Conc 33.9 g/dL (32-36); Mean Corpuscular Volume 90.3 fL (80-100); Mean Platelet Volume 9.7 fL (7.4-10.4); Monocytes # (auto) 0.14 K/uL (0.11-0.59); Monocytes % (auto) 1.8 %; Neutrophils # (auto) 6.87 K/uL (1.4-6.5); Neutrophils % (auto) 88.5 %; Platelet Count 326 K/uL (130-400); RDW Coefficient of Variation 14.7 % (11.5-14.5); RDW Standard Deviation 48.2 fL (36.4-46.3); Red Blood Count 4.54 M/uL (4.2-5.4); White Blood Count 7.76 K/uL (4.8-10.8)
[2021-05-25 06:46] LABS: BUN Creatinine Ratio 25.4 (10-20); Calcium 9.5 mg/dl (8.5-10.1); Creatinine Clr Calc Pharmacy 40.3 ml/min; Est GFR (African American) 73.5 ml/min; Est GFR (Non-African American) 63.4 ml/min; Potassium 3.9 mmol/L (3.5-5.1)
[2021-05-25 06:49] LABS: Albumin Globulin Ratio 0.8 (0.9-2); Bilirubin,Total 0.7 mg/dl (0.2-1); Globulin 3.9 gm/dl (2.5-4.0); Total Protein 6.9 gm/dl (6.4-8.2)
[2021-05-25] MEDS: BUDESONIDE 0.5 MG/2 ML VIAL (PULMICORT) NEB SCH (07:29)
[2021-05-25] MEDS: FORMOTEROL 20 MCG/2 ML VIAL NEB SCH (07:29)
[2021-05-25] MEDS: guaiFENesin 600 MG TABCR PO SCH (09:25)
[2021-05-25] MEDS: amLODIPine BESYLATE 5 MG TAB PO SCH (09:25)
[2021-05-25] MEDS: CITALOPRAM 20 MG TAB PO SCH (09:25)
[2021-05-25] MEDS: PANTOprazole 40 MG TAB PO SCH (09:25)
[2021-05-25] MEDS: ENOXAPARIN INJ 40 MG/0.4 ML SYR SQ SCH (09:26)
[2021-05-25] MEDS: FLUTICASONE/VILANTEROL 200/25MCG 14 PUFFS/INHALER INH SCH (09:26)
[2021-05-25] MEDS: dexAMETHasone 6 MG in SYRINGE 0 ML IV SCH (09:26)
--- NOTE | 2021-05-25 17:33 | Discharge Summary ---
Date of Service May 25, 2021 Admission HPI Per Admitting Provider Jennifer Rodriguez is an 86yo C female with history of COPD, HTN, HLP. She presently lives alone and has family check in on her routinely. Her daughter and son-in-law became ill with Covid-19 symptoms shortly after Thanksgiving. They have been recovering at home. Patient became ill approximately 5 days ago with a dry cough and loss of taste/smell. She has had two days of severe weakness and fatigue as well as confusion. She has forgotten to take her medications. She had a fever today. Patient denies chest pain, SOB, abdominal pain, nausea, vomiting, diarrhea. No additional complaints at this time. ER Course: Unasyn, Tylenol, NSS Principal Diagnosis 1. Covid-19 2. AECOPD with hypoxemia (hypoxemia resolved) Discharge Exam General: Seen while toileting today HEENT: Head is AT/NC buccal mucosa is moist and pink Neck: No JVD. Negative hepatojugular reflex Cardiac: RRR but very distant heart sounds Lungs: Speaking full sentences on supplemental oxygen. Breathing nonlabored. No accessory muscle use. Significantly improved air exchange throughout without W/R/R. Abdomen: Normoactive X4. Soft and nontender in all quadrants. Extremities: No peripheral clubbing cyanosis or edema Neuro: A&O X4 cranial nerves II through XII are grossly intact no focal neuro deficits Skin: No obvious skin lesions or rashes Psych: Appropriate affect pleasant and cooperative Discharge Data Allergies Allergy/AdvReac Type Severity Reaction Status Date / Time bupropion [From Wellbutrin] Allergy Mild Unknown Unverified 01/03/21 10:08 hydrochlorothiazide Allergy Mild Unknown Unverified 01/03/21 10:08 [From Avalide] irbesartan [From Avalide] Allergy Mild Unknown Unverified 01/03/21 10:08 roflumilast [From Daliresp] Allergy Mild Unknown Unverified 01/03/21 10:08 denosumab [From Prolia] Allergy Unknown Unknown Verified 05/23/21 11:42 tramadol Allergy Unknown Unknown Verified 05/23/21 11:42 Sulfa (Sulfonamide AdvReac Intermediate Hives Unverified 05/23/21 11:42 Antibiotics) fentanyl [From Duragesic] AdvReac Mild Hallucinati Verified 05/23/21 11:42 ng ciprofloxacin [From Cipro] AdvReac Unknown Unknown Unverified 05/23/21 11:42 NSAIDS (Non-Steroidal AdvReac Unknown Unknown Unverified 05/23/21 11:42 Anti-Inflamma Consultations 05/16/21 19:46 ED Decision to Admit Stat Ordered Studies 05/17/21 11:10 CT chest diagnostic wo con Urgent IMPRESSION: 1. Multilobar subpleural reticular interstitial opacities with groundglass densities are suggestive of an infectious or inflammatory pneumonitis such as viral pneumonia. 2. Irregular 2.6 x 1.3 cm nodular opacity of the right upper lobe correlates with the radiographic abnormality and is present within ab area of prior consolidation seen on the 11/14/2019 exam. Postinflammatory scarring is favored, however a 12 month follow-up chest CT is recommended to further evaluate. 3. There are a few scattered low suspicion subcentimeter bilateral solid pulmonary nodules. The 5 mm right middle lobe and 4 mm left lower lobe nodules are unchanged from 11/30/2020. 4. 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 5. Cholelithiasis. Hospital Course (1) Pneumonia due to COVID-19 virus: 86yo female presenting with Covid-19 infection. Symptom onset 5 days [employer]. -pulse ox 87% on arrival -CXR: no acute process with 2cm lesion in the RUL. -CT groundglass opacities with nodules (see below) -Was requiring 2L of supplemental O2 as of 05/18 but was weaned off on 05/19. As of 05/23, back to requiring 2L (as pulse ox was 83% on RA)--> seems to have AECO PD likely secondary to covid -Decadron 6mg IV daily, day 8 (increased to BID as increased wheezing and hypoxemia on 05/23-- ? AECOPD)--> D/C with tapering course of prednisone for AECOPD -completed 5 days Remdesivir -utilized neb tx's, mucolytic agents, antitussives, flutter Valve and Incentive spirometry -when seen 05/25, no longe rrequiring supplemental O2 and overall, significant improvement. -2 step pulse ox done showing now need for supplemental O2 -some residual weakness but independent -D/C to [facility]) with additional support (PT/OT and VN) and (2) COPD (chronic obstructive pulmonary disease): Patient with history of mild COPD. She follows with Pulmonary for this issue - last seen 01/03/2021. -seen 05/23 and appeared to have an AECOPD (decreased air exchange, wheezing and hypoxemia) -changed home inhalers to scheduled neb treatments (pulmicort/perforomist and duoneb) -Continued mucolytics as noted above -procal and repeat CXR performed. I do not suspect associated secondary bacterial infection (CXR showing viral process and procal negative). Interval improvement with increased decadron and aggressive pulmonary toilette -stable for D/C to home. With continued tapering course of prednisone -2 step pulse ox done showing no need for supplemental O2 (3) Depression: Chronic -Continue Celexa 10mg po daily (4) Hypothyroidism: Patient with elevated TSH of 8.79, normal Free T4=1.2 -Continue home Synthroid of 50 mcg daily (5) Hypertension: Chronic. Stable -Continue Amlodipine 5mg po daily -Monitor BP (6) Right pulmonary lesion: -Incidentally noted on CXR -CT of chest: groundglass opacities. irregular 2.6 x 1.3 cm nodular opacitiy in the RUL that seems consistent with scarring (12 month FU recommended). Few scat tered subsegmental nodules that remain unchanged from prior and unchanged upper abd aneurysm (4.7cm) (7) Debility: -patient resides alone. Family checks on her often but are also sick with Covid. -case mgmt on board-- plan is for [facility] (not quite medically stable for DC) D/W Dr. Holder [facility] Attestation I certify that this patient is under my care and that I, or a physicians litigation assistant working with me, had a face to-face encounter that meets the [id number] encounter requirements with this patient. The encounter with the patient was in whole, or in part, for the following medical condition, which is the primary reason for home health care (list medical condition): I certify that, based on my findings, the following services are medically necessary home health services: My clinical findings support the need for the above services because: OT Assess ADL Status and Restore Function w ADLs PT Assessment for Endurance / Balance / Strength Skilled Nsg Assessment Further, I certify that my clinical findings support that this patient is homebound (i.e. absences from home require considerable and taxing effort and are for medical reasons or rastafarian services or infrequently or of short duration when for other reasons) because: Certification for Home Health Services: Based on the above findings, I certify that this patient is confined to the home and needs intermittent long-term care, physical therapy and/or speech therapy or continues to need occupational therapy. The patient is under my care, and I have initiated the establishment of the plan of care. This patient will be followed by a physician who will periodically review the plan of care. Total Time Total Time Spent Total Time Spent (In Minutes): 40 Discharge Plan Discharge Items Patient Disposition: [facility] Reason For Visit: COVID-19 Discharge Diagnosis: Pneumonia due to COVID-19 Virus Activity: Per Instructions section Activity Comment: Rest, slowly increase activity as tolerated, use oxygen with activity Non-emergency contact: Primary Care Provider Call non-emergency contact if: you have any medication questions and your symptoms worsen Follow-up/Referrals: Jann Banda MD [Primary Care Provider] - (office will reach out to pt to schedule appt due to covid diagnosis ) Diet: Regular Addtl Attending Provider Instructions: 1. Take all medications as directed. 2. Complete tapering course of prednisone (nest dose due 05/26) 3. Follow up with family doctor within 1 week 4. Continue to quarantine for minimum of 10 days from onset of symptoms (which you mentioned symptoms started 5 days prior to arrival thus your quarantine period has ended) 5. Home health will follow up with you at home in the coming days. 6. you do not require supplemental Oxygen Pending Studies at Discharge: No Stand-Alone Forms: My [employer], Smoking Cessation Skilled Items Patient informed of condition?: Yes DNR: Yes Discharge Level of Care: Other Communicable Disease: No Discharge Prognosis: Stable Lines: None Urinary Catheter: No Medications and DC Order Prescriptions: New prednisone 10 mg tablets,dose pack 10 mg PO DAILY Qty: 21 RF: 0 Continued multivitamin Tablet 1 tab PO DAILY RF: 0 citalopram [Celexa] 10 mg Tablet 10 mg PO DAILY RF: 0 amlodipine 5 mg tablet 5 mg PO DAILY RF: 0 levothyroxine 50 mcg tablet 50 mcg PO QAM RF: 0 pantoprazole 40 mg tablet,delayed release (DR/EC) 40 mg PO BID RF: 0 albuterol sulfate 90 mcg/actuation HFA aerosol inhaler 2 puff INHALATION Q6H PRN (Reason: Shortness Of Breath) RF: 0 Spiriva with HandiHaler 18 mcg capsule, w/inhalation device 2 cap INHALATION DAILY RF: 0 Breo Ellipta 200-25 mcg/dose blister with device 1 inh INHALATION DAILY RF: 0 Discharge Orders: Discharge Order (Routine); Ordered 05/25/21 Ordered By: Ayla Sagastume/Other Patient Handouts: 2019-nCoV Admission Data Admit Date/Time: 05/16/21 20:36 Attending Provider: Bandar Holder Admit Provider: Alee De Souza Primary Care Provider: Jann Banda Other Providers: [facility] ; Bandar Holder Other Interventions: Discharge Summary Assessment (RN) Last Done: 05/25/21 12:21 Coding Level of Care Code D/C DAY MANAGEMENT >30 MINS Diagnoses Pneumonia due to COVID-19 virus U07.1; J12.82 COPD (chronic obstructive pulmonary disease) J44.9 Depression F32.9 Depression Type: unspecified Hypothyroidism E03.9 Hypothyroidism type: acquired Hypertension I10 Hypertension type: essential hypertension Right pulmonary lesion J98.4 Debility R53.81
== END 2021-05-25 15:03 | disposition home health service (06) | DRG 177 ==
LOC: ED 14:42 → EDINP 20:36 → SUATTDRO 20:36 → EDINP 05-17 04:39 → 3W 05-17 22:59

== ENCOUNTER 2021-10-23 22:37 | Inpatient (IN) ==
[2021-10-23] MEDS ORDERED: PANTOprazole 80 MG in DEXTROSE 5% 100 ML IV STA (22:50)
[2021-10-23] MEDS ORDERED: ONDANSETRON INJ 2 MG/ML 2 ML VIAL IV STA (22:52)
--- NOTE | 2021-10-23 22:52 | Emergency Department Note ---
Impression & Plan Acute upper gastrointestinal bleeding, Hypomagnesemia ED Provider Note Name: ELOISA WANG Age: 86 Sex: F Arrives Via: Ambulance Informant: Patient, daughter ED Provider: Laith Pérez MD Chief Complaint: Vomiting Impression: As per impressions above Medical Decision Makin-year-old female arrives for evaluation of vomiting. On arrival emesis was co ffee-ground in nature. Rectal exam reveals heme positive stool. She is hemodynamically stable. She has no abdominal pain or tenderness palpation. She was given Protonix and IV Zofran. She had no further nausea or vomiting. Work- up with normal hemoglobin though given her history I sent a type and screen. Patient does have a history of a severe GI bleed requiring surgery in 2019. Given she is currently stable and not think that imaging of the abdomen is necessary at this time. She does not need emergent transfusion at this time. Patient is not on any blood thinners thus there is no reversal agent necessary. She is somewhat hypomagnesemic thus a gram of magnesium was ordered. Emesis prior to arrival did get a chest x-ray which reveals no evidence of aspiration and clear lungs atthis time. Hospitalist consulted for further management. Prior Medical Record and Triage/Nursing Notes reviewed by Me Additional history obtained from chart Differentials:Diverticulosis, AVM, coagulopathy, colitis, inflammatory bowel disease, malignancy, Amelie-Ramirez tear, esophagitis, peptic ulcer disease, variceal bleed, gastritis, epistaxis, fissure, hemorrhoids, as well as other pathologies. Vital Signs: reviewed and remarkable for no significant abnormalities Interventions: protonix 80mg iv, magnesium Labs:Reviewed and remarkable for hypomag Imaging:X ray results are stated below per my interpretation: Chest: 1 view: No infiltrate, no effusion, normal cardiac border. EKG:Per My Interpretation: Indication vomiting: NSR 85 bpm, qtc 464. No Ectopy. No Ischemia. Compared to EKG 05/16/21, no significant changes. Cardiac/Tele Monitoring: Cardiac Monitoring: An Order was placed for continuous cardiac monitoring. The monitor shows a rate of 85 with a normal sinus rhythm. Consults:Dr Ap BAILEY Hospitalist Plan: Disposition:Hospitalization. Condition: Good History of Present Illness:-year-old female arrives for evaluation of vomiting. Patient has been vomiting since last evening. This afternoon vomit was black. Patient notes that she has some mild stomach discomfort but no specific pain. She states that her current nausea is better. Patient notes that her stool has been dark today when she had a bowel movement. She notes a history of an ulcer in her stomach and required surgery before but she cannot recall if the surgery is due to that or her other medical issues. She had no medication prior to arrival. Nothing makes the symptoms better or worse. She denies any current abdominal pain, back pain, chest pain, shortness of breath, fevers, chills, headache, neck pain, bruising, leg swelling, calf pain or any other signs or symptoms. She denies being on any blood thinners states she does not take aspirin. ROS: See above HPI for pertinent positives & negatives. A total of 10 systems reviewed and were otherwise negative. Past Medical History:See Below Past Surgical History:See Below Family History:See Below Social History:See Below Home Medications:See Below Allergies:See Below Vitals:Blood Pressure: 152/78, Pulse 72, RR 18, T 36.9C, O2 97% on RA Physical Exam: GENERAL: Patient is very anxious appearing and in mild distress. EYES: No scleral icterus, unremarkable pupils. ENT: Mucous membranes moist, no nasal congestion. NECK: No masses appreciated, nomeningismus, trachea is midline. RESPIRATORY: No dyspnea. Clear to auscultation and equal bilaterally. No wheeze, no rhonchi. CARDIOVASCULAR: Regular rate and rhythm.No murmurs, rubs, gallops appreciated. GASTROINTESTINAL: Abdomen soft, non-tender, no peritonitis.Bowel sounds positive.No masses appreciated. BACK: No midline tenderness, no CVA tenderness RECTAL: Dark stool with heme positive guac, normal perirectal area EXTREMITIES: Normal motion all extremities, no cyanosis, no edema. NEUROLOGIC: Alert and oriented, no acute motor or sensory deficits, no focal weakness, cranial nerves grossly intact. SKIN: No rash, no jaundice, no diaphoresis. PSYCH: Appropriate GCS: 15 ED Course: Times/Reassessments: No further vomiting and no complaints of abdominal pain or other issues. Agreeable to hospitalization. Laith Pérez MD Past Med/Surg History Medical History (Updated 10/24/21 @ 01:05 by Alee eD Souza DO) Anemia Anxiety Closed sacral fracture COPD (chronic obstructive pulmonary disease) Dehydration Delirium Dementia Depression Duodenal bulb ulcer Gallstones GI bleed Hyperlipidemia LDL goal <70 Hypertension Hyponatremia Hypothyroidism Left hip pain Murmur, cardiac Osteopenia Peptic ulcer disease Pneumonia Pseudomonas urinary tract infection Urinary retention Surgical History S/P AAA (abdominal aortic aneurysm) repair Family History Father , in his 70s of an [place]. Hypertension Myocardial infarction Mother , in her 70s after a fall No problems noted. 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 Feels Safe at Home: Yes Assistive Devices: Denture - Upper, Denture - Lower, Glasses and Walker Allergies Allergies Allergy/AdvReac Type Severity Reaction Status Date / Time bupropion [From Wellbutrin] Allergy Mild Unknown Unverified 10/23/21 23:15 hydrochlorothiazide Allergy Mild Unknown Unverified 01/03/21 10:08 [From Avalide] irbesartan [From Avalide] Allergy Mild Unknown Unverified 10/23/21 23:15 roflumilast [From Daliresp] Allergy Mild Unknown Unverified 10/23/21 23:15 denosumab [From Prolia] Allergy Unknown Unknown Verified 10/23/21 23:15 tramadol Allergy Unknown Unknown Verified 10/23/21 23:15 Sulfa (Sulfonamide AdvReac Intermediate Hives Unverified 05/23/21 11:42 Antibiotics) fentanyl [From Duragesic] AdvReac Mild Hallucinati Verified 05/23/21 11:42 ng ciprofloxacin [From Cipro] AdvReac Unknown Unknown Unverified 10/23/21 23:15 NSAIDS (Non-Steroidal AdvReac Unknown Unknown Unverified 10/23/21 23:15 Anti-Inflamma Home Meds Home Medications Medication Instructions Recorded Confirmed amlodipine 5 mg tablet 5 mg PO DAILY 05/16/21 10/23/21 citalopram 10 mg tablet (Celexa) 10 mg PO DAILY 05/16/21 10/23/21 fluticasone furoate 200 1 inh INHALATION DAILY 05/16/21 10/23/21 mcg-vilanterol 25 mcg/dose inhalation powder (Breo Ellipta) levothyroxine 50 mcg tablet 50 mcg PO QAM 05/16/21 10/23/21 pantoprazole 40 mg tablet,delayed 40 mg PO BID 05/16/21 10/23/21 release acetaminophen 325 mg tablet 325 - 650 mg PO Q4 PRN 10/23/21 10/23/21 (Tylenol) citalopram 20 mg tablet 20 mg PO DAILY 10/23/21 10/23/21 methyl salicylate-menthol topical 1 applic TOPICAL QID PRN 10/23/21 10/23/21 cream multivitamin with minerals-folic 2 tab PO QAM 10/23/21 10/23/21 acid 200 mcg chewable tablet (Women's Multivitamin Gummies) polyethylene glycol 3350 17 17 g PO BID PRN 10/23/21 10/23/21 gram/dose oral powder (Miralax) Previous Rx's Medication Instructions Recorded umeclidinium 62.5 mcg/actuation 1 inh INHALATION DAILY #3 ea 07/22/21 blister powder for inhalation (Incruse Ellipta) Results & Data (ED) Vital Signs Vital Signs - 24 hr 10/23/21 22:45 10/24/21 00:29 Temperature 36.9 C Temperature Source Oral Pulse Rate 92 H Pulse Rate [Apical] 98 H 72 Pulse Rhythm Regular Pulse Rhythm [Apical] Regular Regular Pulse Strength Normal Pulse Strength [Apical] Normal Normal Respiratory Rate 18 18 Respiratory Effort / Characteristics Non-Labored Spontaneous Non-Labored Spontaneous Respiratory Depth Normal Normal Respiratory Pattern Regular Regular Blood Pressure 162/83 H Blood Pressure [Right Arm] 162/83 H 152/78 H Blood Pressure Mean 109 Blood Pressure Mean [Right Arm] 109 102 Blood Pressure Position Lying Blood Pressure Position [Right Arm] Lying Lying Pulse Oximetry 98 97 Oxygen Delivery Method Room Air Room Air Sepsis Recent Fever Within 48 Hours No Sepsis New/Unexplained Change in Mental Status N/A Sepsis Action Taken by Nursing No Action Required Laboratory Data Result diagrams: 10/23/21 22:17 10/23/21 22:17 Lab Results 10/23/21 10/23/21 10/23/21 Range/Units 22:17 22:17 22:17 WBC 12.21 H (4.8-10.8) K/uL RBC 4.30 (4.2-5.4) M/uL Hgb 13.1 (12.0-16.0) g/dL Hct 39.3 (37-47) % MCV 91.4 (80-100) fL MCH 30.5 (25-34) pg MCHC 33.3 (32-36) g/dL RDW Std Deviation 48.7 H (36.4-46.3) fL RDW Coeff of Radhika 14.6 H (11.5-14.5) % Plt Count 299 (130-400) K/uL MPV 9.9 (7.4-10.4) fL Immature Gran % (Auto) 0.3 % Neut % (Auto) 77.7 % Lymph % (Auto) 15.9 % Hardy % (Auto) 5.5 % Eos % (Auto) 0.4 % Baso % (Auto) 0.2 % Neut # (Auto) 9.49 H (1.4-6.5) K/uL Lymph # (Auto) 1.94 (1.2-3.4) K/uL Hardy # (Auto) 0.67 H (0.11-0.59) K/uL Eos # (Auto) 0.05 (0-0.5) K/uL Baso # (Auto) 0.02 (0-0.2) K/uL Immature Gran # (Auto) 0.04 H (0.00-0.02) K/uL PT Cancelled INR Cancelled APTT Cancelled PTT Ratio Cancelled Sodium 135 L (136-145) mmol/L Potassium 3.6 (3.5-5.1) mmol/L Chloride 101 (98-107) mmol/L Carbon Dioxide 24 (21-32) mmol/L Anion Gap 10 (3-11) BUN 17 (6-23) mg/dl Creatinine 0.77 (0.6-1.2) mg/dl Est Cr Clr Drug Dosing 42.2 ml/min Est GFR ( Amer) 81.6 ml/min Est GFR (Non-Af Amer) 70.4 ml/min BUN/Creatinine Ratio 22.1 H (10-20) Glucose 103 H (70-99(Fasting)) mg/dl Calcium 9.5 (8.5-10.1) mg/dl Magnesium 1.5 L (1.7-2.4) mg/dl Total Bilirubin 1.7 H (0.2-1.0) mg/dl Direct Bilirubin 0.2 (0-0.2) mg/dl AST 20 (13-39) U/L ALT 11 (7-52) U/L Alkaline Phosphatase 70 (34-104) U/L Troponin I High Sens 5.3 (0-14) pg/ml Total Protein 7.2 (6.0-8.3) gm/dl Albumin 4.4 (3.4-5.0) gm/dl Lipase < 3 L (11-82) U/L TSH (0.300-4.500) uIu/ml SARS-CoV-2, RNA, NAAT (NEGATIVE) Blood Type Antibody Screen 10/23/21 10/23/21 10/23/21 Range/Units 22:17 23:13 23:40 WBC (4.8-10.8) K/uL RBC (4.2-5.4) M/uL Hgb (12.0-16.0) g/dL Hct (37-47) % MCV (80-100) fL MCH (25-34) pg MCHC (32-36) g/dL RDW Std Deviation (36.4-46.3) fL RDW Coeff of Radhika (11.5-14.5) % Plt Count (130-400) K/uL MPV (7.4-10.4) fL Immature Gran % (Auto) % Neut % (Auto) % Lymph % (Auto) % Hardy % (Auto) % Eos % (Auto) % Baso % (Auto) % Neut # (Auto) (1.4-6.5) K/uL Lymph # (Auto) (1.2-3.4) K/uL Hardy # (Auto) (0.11-0.59) K/uL Eos # (Auto) (0-0.5) K/uL Baso # (Auto) (0-0.2) K/uL Immature Gran # (Auto) (0.00-0.02) K/uL PT INR APTT PTT Ratio Sodium (136-145) mmol/L Potassium (3.5-5.1) mmol/L Chloride (98-107) mmol/L Carbon Dioxide (21-32) mmol/L Anion Gap (3-11) BUN (6-23) mg/dl Creatinine (0.6-1.2) mg/dl Est Cr Clr Drug Dosing ml/min Est GFR ( Amer) ml/min Est GFR (Non-Af Amer) ml/min BUN/Creatinine Ratio (10-20) Glucose (70-99(Fasting)) mg/dl Calcium (8.5-10.1) mg/dl Magnesium (1.7-2.4) mg/dl Total Bilirubin (0.2-1.0) mg/dl Direct Bilirubin (0-0.2) mg/dl AST (13-39) U/L ALT (7-52) U/L Alkaline Phosphatase (34-104) U/L Troponin I High Sens (0-14) pg/ml Total Protein (6.0-8.3) gm/dl Albumin (3.4-5.0) gm/dl Lipase (11-82) U/L TSH 16.584 H (0.300-4.500) uIu/ml SARS-CoV-2, RNA, NAAT NEGATIVE (NEGATIVE) Blood Type O Negative Antibody Screen NEGATIVE 10/24/21 Range/Units 00:15 WBC (4.8-10.8) K/uL RBC (4.2-5.4) M/uL Hgb (12.0-16.0) g/dL Hct (37-47) % MCV (80-100) fL MCH (25-34) pg MCHC (32-36) g/dL RDW Std Deviation (36.4-46.3) fL RDW Coeff of Radhika (11.5-14.5) % Plt Count (130-400) K/uL MPV (7.4-10.4) fL Immature Gran % (Auto) % Neut % (Auto) % Lymph % (Auto) % Hardy % (Auto) % Eos % (Auto) % Baso % (Auto) % Neut # (Auto) (1.4-6.5) K/uL Lymph # (Auto) (1.2-3.4) K/uL Hardy # (Auto) (0.11-0.59) K/uL Eos # (Auto) (0-0.5) K/uL Baso # (Auto) (0-0.2) K/uL Immature Gran # (Auto) (0.00-0.02) K/uL PT 12.1 H INR 1.1 APTT 28.3 PTT Ratio 1.0 Sodium (136-145) mmol/L Potassium (3.5-5.1) mmol/L Chloride (98-107) mmol/L Carbon Dioxide (21-32) mmol/L Anion Gap (3-11) BUN (6-23) mg/dl Creatinine (0.6-1.2) mg/dl Est Cr Clr Drug Dosing ml/min Est GFR ( Amer) ml/min Est GFR (Non-Af Amer) ml/min BUN/Creatinine Ratio (10-20) Glucose (70-99(Fasting)) mg/dl Calcium (8.5-10.1) mg/dl Magnesium (1.7-2.4) mg/dl Total Bilirubin (0.2-1.0) mg/dl Direct Bilirubin (0-0.2) mg/dl AST (13-39) U/L ALT (7-52) U/L Alkaline Phosphatase (34-104) U/L Troponin I High Sens (0-14) pg/ml Total Protein (6.0-8.3) gm/dl Albumin (3.4-5.0) gm/dl Lipase (11-82) U/L TSH (0.300-4.500) uIu/ml SARS-CoV-2, RNA, NAAT (NEGATIVE) Blood Type Antibody Screen Administered Medications Magnesium Sulfate/Dextrose (Magnesium Sulfate / D5w) 1 gm in 100 mls @ 100 mls /hr IV NOW STA Stop: 10/24/21 01:12 Last Admin: 10/24/21 00:51 Dose: 100 mls/hr Documented by: [id number] Discontinued Medications Pantoprazole Sodium 80 mg/ (Dextrose) 100 mls @ 400 mls/hr IV ONE STA Stop: 10/23/21 23:04 Last Infusion: 10/23/21 23:42 Dose: 0 mls/hr Documented by: [id number] Admin: 10/23/21 23:17 Dose: 400 mls/hr Documented by: [id number] Ondansetron HCl (Ondansetron Inj 2 Mg/Ml 2 Ml Vial) 4 mg IV NOW STA Stop: 10/23/21 22:53 Last Admin: 10/23/21 23:42 Dose: 4 mg Documented by: [id number] Discharge Plan Visit Data Chief Complaint: Vomiting ED Provider: Laith Pérez Discharge Problem: Acute upper gastrointestinal bleeding, Hypomagnesemia Forms Stand Alone Forms: [facility] [employer] Prescriptions Prescriptions: No Action Incruse Ellipta 62.5 mcg/actuation blister with device 1 inh inhalation DAILY Qty: 3 RF: 3 citalopram 20 mg tablet 20 mg PO DAILY RF: 0 polyethylene glycol 3350 [Miralax] 17 gram/dose Powder 17 g PO BID PRN (Reason: Constipation) RF: 0 Icy Hot Cream 1 applic TOPICAL QID PRN (Reason: Pain) RF: 0 Women's Multivitamin Gummies 200 mcg Tablet,Chewable 2 tab PO QAM RF: 0 acetaminophen [Tylenol] 325 mg Tablet 325 - 650 mg PO Q4 PRN (Reason: Fever Or Pain) RF: 0 citalopram [Celexa] 10 mg Tablet 10 mg PO DAILY RF: 0 amlodipine 5 mg tablet 5 mg PO DAILY RF: 0 levothyroxine 50 mcg tablet 50 mcg PO QAM RF: 0 pantoprazole 40 mg tablet,delayed release (DR/EC) 40 mg PO BID RF: 0 Breo Ellipta 200-25 mcg/dose blister with device 1 inh INHALATION DAILY RF: 0 Referrals [facility]: [facility] -
[2021-10-23 23:34] LABS: Basophils # (auto) 0.02 K/uL (0-0.2); Basophils % (auto) 0.2 %; Eosinophils # (auto) 0.05 K/uL (0-0.5); Eosinophils % (auto) 0.4 %; Hematocrit (blood only) 39.3 % (37-47); Hemoglobin 13.1 g/dL (12.0-16.0); Immature Granulocytes # (auto) 0.04 K/uL (0.00-0.02); Immature Granulocytes % (auto) 0.3 %; Lymphocytes # (auto) 1.94 K/uL (1.2-3.4); Lymphocytes % (auto) 15.9 %; Mean Corpuscular Hemoglobin 30.5 pg (25-34); Mean Corpuscular Hgb Conc 33.3 g/dL (32-36); Mean Corpuscular Volume 91.4 fL (80-100); Mean Platelet Volume 9.9 fL (7.4-10.4); Monocytes # (auto) 0.67 K/uL (0.11-0.59); Monocytes % (auto) 5.5 %; Neutrophils # (auto) 9.49 K/uL (1.4-6.5); Neutrophils % (auto) 77.7 %; Platelet Count 299 K/uL (130-400); RDW Coefficient of Variation 14.6 % (11.5-14.5); RDW Standard Deviation 48.7 fL (36.4-46.3); White Blood Count 12.21 K/uL (4.8-10.8)
[2021-10-23 23:55] LABS: Anion Gap 10 (3-11); BUN Creatinine Ratio 22.1 (10-20); Blood Urea Nitrogen 17 mg/dl (6-23); Calcium 9.5 mg/dl (8.5-10.1); Carbon Dioxide 24 mmol/L (21-32); Chloride 101 mmol/L (98-107); Creatinine Clr Calc Pharmacy 42.2 ml/min; Est GFR (African American) 81.6 ml/min; Est GFR (Non-African American) 70.4 ml/min; Glucose 103 mg/dl (70-99(Fasting)); Potassium 3.6 mmol/L (3.5-5.1); Sodium 135 mmol/L (136-145)
[2021-10-23 23:57] LABS: Troponin I High Sensitivity 5.3 pg/ml (0-14)
[2021-10-24] LABS: Alanine Aminotransferase 11 U/L (7-52); Albumin Level 4.4 gm/dl (3.4-5.0); Alkaline Phosphatase 70 U/L (34-104); Aspartate Aminotransferase 20 U/L (13-39); Bilirubin Direct 0.2 mg/dl (0-0.2); Bilirubin,Total 1.7 mg/dl (0.2-1.0); Lipase < 3 U/L (11-82); Magnesium 1.5 mg/dl (1.7-2.4); Total Protein 7.2 gm/dl (6.0-8.3)
[2021-10-24] MEDS ORDERED: MAGNESIUM SULFATE / D5W 1 GM/100 ML BAG IV STA (00:13)
[2021-10-24 00:52] LABS: INR 1.1 (0.9-1.1); Partial Thromboplastin Time 28.3 Seconds (21.0-31.0); Prothrombin Time 12.1 Seconds (9.0-12.0)
--- NOTE | 2021-10-24 01:21 | History & Physical Report ---
Date of Service October 24, 2021 Assessment & Plan (1) GI bleed: Plan: 86-year-old female presenting with dark-colored emesis, heme positive stools concerning for upper GI bleed. Patient with history of large duodenal bulb ulcer in 2019 requiring endoscopic repair and transfusion of blood products. Patient does not take NSAIDs, aspirin. No alcohol use or recent steroids. She has been taking Protonix 40 mg twice daily at home. Presently hemodynamically stable, hemoglobin = 13.1, hematocrit = 39.3, BUN = 17. Normal INR and platelet count. [address] Admit to medical with telemetry Keep patient n.p.o. Obtain 2 large-bore peripheral IVs Trend CBC every 8 hours. Transfuse for active bleed, symptomatic anemia or hemoglobin less than 7. Patient consented with daughter in the roomform is on chart Continue Protonix drip Sucralfate 4 times daily Zofran as needed for nausea GI consultation appreciated Request records from [place] (2) Delirium: Plan: Daughter reports patient has history of hospital induced delirium Frequent orientation Ambulation with assistance as needed Maintenance of sleep/wake cycle where possible Avoidance of possible delirium inducing agents (3) COPD (chronic obstructive pulmonary disease): Plan: Patient with history of mild COPD. She follows with pulmonary. PFTs on 07/03/2019 with FEV1 to FVC = 60, FEV1 72% predicted. Adequate oxygenation on room air with no cough/shortness of breath or wheeze Continue umeclidinium, fluticasone and vilanterol Continue to monitor (4) Anxiety: Plan: Chronic. Stable on medications Continue Celexa 10 mg p.o. daily (5) Hypertension: Plan: Blood pressure mildly elevated at 152/78 Continue amlodipine 5 mg p.o. daily with holding parameters (6) Hypothyroidism: Plan: Chronic. Elevated TSH at 16.5. Continue Synthroid 50 mcg p.o. every morning Plan: FENLR at 100 mL/h x 1 L, magnesium repletion1 g ordered in ER, will give additional 3 g on floor with repeat level in a.m., n.p.o. for now ProphylaxisSCDs to bilateral lower extremities CodeDNR/DNI per discussion with patient and daughter Dispoadmit to medical with telemetry History of Present Illness Chief Complaint: Vomiting Primary Care Provider: [facility] Srin[facility]an Rodriguez is an 86-year-old female with history of hypertension, hyperlipidemia, duodenal bulb ulcer, COPD and dementia presenting with concern for GI bleed. Patient presently resides at [facility]. Pe r nursing report patient had not been feeling well all day. She did not come out of her room. Around 1900 she developed nausea and vomiting of dark-colored liquid, question of blood. Patient with history of dementia. She is unable to provide clear details of events prior to arrival. She does state that "something is wrong with me and its not normal". Otherwise, she denies chest pain, cough, shortness of breath. Denies fever, chills, abdominal pain, diarrhea. No additional complaints In the ER, patient afebrile, hemodynamically stable (heart rate of 98 bpm on arrival, now 72 bpm). Patient had heme positive stools. Daughter is at bedside and assists with history. Of importance, patient presented with an upper GI bleed in September 2018. Findings suspicious for ulceration noted on imaging. Patient was taking meloxicam at the time. She had an EGD performed on 09/05/[address] Field which revealed a large, cratered duodenal bulb ulcer measuring approximately 30 mm. Patient was evaluated by surgery as well. She did have significant hematemesis during that hospitalization with hemorrhagic shock requiring transfusion of 5 units packed red blood cells and management in the medical ICU. She was ultimately transferred to [facility] for more aggressive GI/surgical treatment. Daughter states that ulcer was fixed at [place] with an EGD. We will request records ER course: Protonix 80 mg IV, Zofran 4 mg IV, magnesium 1 g IV Allergies Allergy/AdvReac Type Severity Reaction Status Date / Time bupropion [From Wellbutrin] Allergy Mild Unknown Unverified 10/23/21 23:15 hydrochlorothiazide Allergy Mild Unknown Unverified 01/03/21 10:08 [From Avalide] irbesartan [From Avalide] Allergy Mild Unknown Unverified 10/23/21 23:15 roflumilast [From Daliresp] Allergy Mild Unknown Unverified 10/23/21 23:15 denosumab [From Prolia] Allergy Unknown Unknown Verified 10/23/21 23:15 tramadol Allergy Unknown Unknown Verified 10/23/21 23:15 Sulfa (Sulfonamide AdvReac Intermediate Hives Unverified 05/23/21 11:42 Antibiotics) fentanyl [From Duragesic] AdvReac Mild Hallucinati Verified 05/23/21 11:42 ng ciprofloxacin [From Cipro] AdvReac Unknown Unknown Unverified 10/23/21 23:15 NSAIDS (Non-Steroidal AdvReac Unknown Unknown Unverified 10/23/21 23:15 Anti-Inflamma Home Medications Medication Instructions Recorded Confirmed Type amlodipine 5 mg tablet 5 mg PO DAILY 05/16/21 10/23/21 History citalopram 10 mg tablet (Celexa) 10 mg PO DAILY 05/16/21 10/23/21 History fluticasone furoate 200 1 inh INHALATION DAILY 05/16/21 10/23/21 History mcg-vilanterol 25 mcg/dose inhalation powder (Breo Ellipta) levothyroxine 50 mcg tablet 50 mcg PO QAM 05/16/21 10/23/21 History pantoprazole 40 mg tablet,delayed 40 mg PO BID 05/16/21 10/23/21 History release umeclidinium 62.5 mcg/actuation 1 inh INHALATION DAILY #3 ea 07/22/21 10/23/21 Rx blister powder for inhalation (Incruse Ellipta) acetaminophen 325 mg tablet 325 - 650 mg PO Q4 PRN 10/23/21 10/23/21 History (Tylenol) citalopram 20 mg tablet 20 mg PO DAILY 10/23/21 10/23/21 History methyl salicylate-menthol topical 1 applic TOPICAL QID PRN 10/23/21 10/23/21 History cream multivitamin with minerals-folic 2 tab PO QAM 10/23/21 10/23/21 History acid 200 mcg chewable tablet (Women's Multivitamin Gummies) polyethylene glycol 3350 17 17 g PO BID PRN 10/23/21 10/23/21 History gram/dose oral powder (Miralax) Past Med/Surg History Medical History (Updated 10/24/21 @ 01:05 by Alee De Souza DO) Anemia Anxiety Closed sacral fracture COPD (chronic obstructive pulmonary disease) Dehydration Delirium Dementia Depression Duodenal bulb ulcer Gallstones GI bleed Hyperlipidemia LDL goal <70 Hypertension Hyponatremia Hypothyroidism Left hip pain Murmur, cardiac Osteopenia Peptic ulcer disease Pneumonia Pseudomonas urinary tract infection Urinary retention Surgical History S/P AAA (abdominal aortic aneurysm) repair Family History Father , in his 70s of an SD. Hypertension Myocardial infarction Mother , in her 70s after a fall No problems noted. 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 Feels Safe at Home: Yes Assistive Devices: Denture - Upper, Denture - Lower, Glasses and Walker Review of Systems Review of Systems: All systems reviewed & are unremarkable except as noted in HPI & below Physical Exam Physical Exam: General: patient resting comfortably, NAD, non-toxic in appearance, slow to answer questions Skin: warm, dry, intact, no rashes or lesions HEENT: NC/AT, PERRL, EOMI, anicteric sclera, conjunctiva without injection, external ear normal to inspection and nontender, nares patent, moist mucus membranes, dentition intact, no oropharyngeal lesions, neck supple, trachea midline, no LAD, no thyromegaly, no JVD Heart: +S1/S2, regular, 3 out of 6 systolic ejection murmur left sternal border, no rubs or gallops Lungs: equal air entry bilaterally, no rales/rhonchi/wheezes Abd: +BS, soft, NT/ND, no masses/organomegaly/ascites Ext: warm, 2+ pulses in UE/LE bilaterally, no clubbing/cyanosis or edema Neuro: nonfocal, speech delayed, no facial droop, moving all extremities on command with equal strength 5/5 Results & Data Results & Data ([facility]) Vital Signs (Past 12 Hours) Vital Signs Temp Pulse Pulse Resp BP BP Pulse Ox 10/24/21 00:29 72 18 152/78 H 97 10/23/21 22:45 36.9 C 92 H 98 H 18 162/83 H 162/83 H 98 Laboratory Results Laboratory Results WBC 12.21 K/uL (4.8-10.8) H 10/23/21 22:17 RBC 4.30 M/uL (4.2-5.4) 10/23/21 22:17 Hgb 13.1 g/dL (12.0-16.0) 10/23/21 22:17 Hct 39.3 % (37-47) 10/23/21 22: MCV 91.4 fL (80-100) 10/23/21 22: MCH 30.5 pg (25-34) 10/23/21 22: MCHC 33.3 g/dL (32-36) 10/23/21 22: RDW Std Deviation 48.7 fL (36.4-46.3) H 10/23/21 22:17 RDW Coeff of Radhika 14.6 % (11.5-14.5) H 10/23/21 22: Plt Count 299 K/uL (130-400) 10/23/21 22: MPV 9.9 fL (7.4-10.4) 10/23/21 22:17 Immature Gran % (Auto) 0.3 % 10/23/21 22: Neut % (Auto) 77.7 % 10/23/21 22:17 Lymph % (Auto) 15.9 % 10/23/21 22:17 Stanly % (Auto) 5.5 % 10/23/21 22:17 Eos % (Auto) 0.4 % 10/23/21: Baso % (Auto) 0.2 % 10/23/21 22:17 Neut # (Auto) 9.49 K/uL (1.4-6.5) H 10/23/21 22:17 Lymph # (Auto) 1.94 K/uL (1.2-3.4) 10/23/21 22:17 Stanly # (Auto) 0.67 K/uL (0.11-0.59) H 10/23/21 22:17 Eos # (Auto) 0.05 K/uL (0-0.5) 10/23/21 22:17 Baso # (Auto) 0.02 K/uL (0-0.2) 10/23/21 22:17 Immature Gran # (Auto) 0.04 K/uL (0.00-0.02) H 10/23/21 22:17 PT 12.1 Seconds (9.0-12.0) H 10/24/21 00:15 INR 1.1 (0.9-1.1) 10/24/21 00:15 APTT 28.3 Seconds (21.0-31.0) 10/24/21 00:15 PTT Ratio 1.0 10/24/21 00:15 Sodium 135 mmol/L (136-145) L 10/23/21 22:17 Potassium 3.6 mmol/L (3.5-5.1) 10/23/21 22:17 Chloride 101 mmol/L (98-107) 10/23/21 22:17 Carbon Dioxide 24 mmol/L (21-32) 10/23/21 22:17 Anion Gap 10 (3-11) 10/23/21 22:17 BUN 17 mg/dl (6-23) 10/23/21 22:17 Creatinine 0.77 mg/dl (0.6-1.2) 10/23/21 22:17 Est Cr Clr Drug Dosing 42.2 ml/min 10/23/21 22:17 Est GFR ( Amer) 81.6 ml/min 10/23/21 22:17 Est GFR (Non-Af Amer) 70.4 ml/min 10/23/21 22:17 BUN/Creatinine Ratio 22.1 (10-20) H 10/23/21 22:17 Glucose 103 mg/dl (70-99(Fasting)) H 10/23/21 22:17 Calcium 9.5 mg/dl (8.5-10.1) 10/23/21 22:17 Magnesium 1.5 mg/dl (1.7-2.4) L 10/23/21 22:17 Total Bilirubin 1.7 mg/dl (0.2-1.0) H 10/23/21 22:17 Direct Bilirubin 0.2 mg/dl (0-0.2) 10/23/21 22:17 AST 20 U/L (13-39) 10/23/21 22:17 ALT 11 U/L (7-52) 10/23/21 22:17 Alkaline Phosphatase 70 U/L (34-104) 10/23/21 22:17 Troponin I High Sens 5.3 pg/ml (0-14) 10/23/21 22:17 Total Protein 7.2 gm/dl (6.0-8.3) 10/23/21 22:17 Albumin 4.4 gm/dl (3.4-5.0) 10/23/21 22:17 Lipase < 3 U/L (11-82) L 10/23/21 22:17 TSH 16.584 uIu/ml (0.300-4.500) H 10/23/21 22:17 SARS-CoV-2, RNA, NAAT NEGATIVE (NEGATIVE) 10/23/21 23:40 Blood Type O Negative 10/23/21 23:13 Antibody Screen NEGATIVE 10/23/21 23:13 Diagnostic Findings Chest x-rayby my interpretation appears to have mildly enlarged cardiac silhouette on AP film, no obvious infiltrate, failure or pneumothorax. ECG Additional Comments: EKG shows normal sinus rhythm at 85 bpm, RI = 154, QRS = 70, QTc = 464. Nonspecific ST changes. Code Status & VTE Plan VTE Prophylaxis Plan VTE Prophylaxis will be ordered: Yes PG Care Time/CCT Total # of Minutes Spent Total Time Spent with Patient: Total time spent is greater than 50% in coordination of care (as documented) at patient's floor/unit and/or counseling patient: Coding Level of Care Code 51932 Initial Inpt Care Lvl 3 Diagnoses COPD (chronic obstructive pulmonary disease) J44.9 Anxiety F41.9 Hypertension I10 Hypothyroidism E03.9 Delirium R41.0 GI bleed K92.2
[2021-10-24] MEDS ORDERED: ONDANSETRON INJ 2 MG/ML 2 ML VIAL IV PRN (03:08)
[2021-10-24] MEDS ORDERED: LACTATED RINGER'S 1,000 ML IV SCH (03:08)
[2021-10-24] MEDS ORDERED: ACETAMINOPHEN 325 MG TAB PO PRN (03:08)
[2021-10-24] MEDS ORDERED: POLYETHYLENE (MIRALAX) 17 GM PACK PO PRN (03:08)
[2021-10-24] MEDS: PANTOprazole 40 MG in DEXTROSE 5% 100 ML IV SCH ×5 (03:52→21:42)
[2021-10-24 04:18] LABS: Basophils # (auto) 0.03 K/uL (0-0.2); Basophils % (auto) 0.2 %; Eosinophils # (auto) 0.03 K/uL (0-0.5); Eosinophils % (auto) 0.2 %; Hematocrit (blood only) 36.2 % (37-47); Hemoglobin 12.3 g/dL (12.0-16.0); Immature Granulocytes # (auto) 0.02 K/uL (0.00-0.02); Immature Granulocytes % (auto) 0.2 %; Lymphocytes # (auto) 1.62 K/uL (1.2-3.4); Lymphocytes % (auto) 13.2 %; Mean Corpuscular Hemoglobin 31.2 pg (25-34); Mean Corpuscular Volume 91.9 fL (80-100); Mean Platelet Volume 9.4 fL (7.4-10.4); Monocytes # (auto) 0.73 K/uL (0.11-0.59); Monocytes % (auto) 5.9 %; Neutrophils # (auto) 9.85 K/uL (1.4-6.5); Neutrophils % (auto) 80.3 %; Platelet Count 263 K/uL (130-400); RDW Coefficient of Variation 14.3 % (11.5-14.5); RDW Standard Deviation 48.5 fL (36.4-46.3); Red Blood Count 3.94 M/uL (4.2-5.4); White Blood Count 12.28 K/uL (4.8-10.8)
[2021-10-24] MEDS: MAGNESIUM SULFATE / D5W 1 GM/100 ML BAG IV SCH ×3 (05:15→09:33)
[2021-10-24] MEDS ORDERED: LEVOTHYROXINE SODIUM 50 MCG TABLET PO SCH (06:30)
--- NOTE | 2021-10-24 07:18 | XRay Report ---
XR chest 1V portable CLINICAL HISTORY: vomiting, gi bleed. COMPARISON STUDY: 05/23/2021 TECHNIQUE: 1 view of the chest FINDINGS: Single frontal view of the chest demonstrates the cardiomediastinal silhouette to be within normal li mits. Mild asymmetric elevation of the right hemidiaphragm is again seen. The lungs are clear of alve olar opacities. There is no evidence for pleural effusion. There is no evidence for vascular congesti on. There is no acute osseous pathology. IMPRESSION: 1. No acute cardiopulmonary disease. ACT 112: Negative or not required by law. Electronically signed by: Richie Ronquillo M.D. 10/24/2021 7:16 AM
[2021-10-24] MEDS ORDERED: SUCRALFATE 1 GM/10 ML UDC PO SCH (07:30)
--- NOTE | 2021-10-24 07:54 | Gastrointestinal Consultation ---
Date of Consultation October 24, 2021 Assessment & Plan (1) GI bleed: GI bleeding: The patient is awake and alert to person at her baseline this morning. She denies any specific complaints except for some mild nausea. Concerns for GI bleeding including heme positive stool and what sounds like coffee-ground emesis last night. She does have history of a large duodenal ulcer in 2019. Spoke to her daughter, Beckie, reports that she is unsure if she would want her mother to have a procedure at this time. She is going to. Some consideration to EGD and Dr. Basilio will touch base with her later this afternoon when he rounds. Patient's blood counts are stable this morning. She is in good spirits. No further emesis at this time. Continue supportive measures including IV fluids, n.p.o., PPI IV. Case reviewed with Dr. Basilio. Please refer to supervising physician addendum for further recommendations. I have spent 30 minutes of discrete time performing the activities of this visit which include but are not limited to review of the medical record, obtaining a history, physical exam, and entering information in the electronic record. Supervising Physician Co-Signing Physician Notes I have seen and examined the patient. I agree with note above by GEOFF Luciano except as noted below. HPI Beckie with patient for H and P. Pt denies abd pain. Per nursing only smear of stool today. PE Abdomen pos bs, soft, no guarding nor rebound A/P Coffee ground emesis--PUD in the differential. Spoke with Beckie her daughter and no treatment would be done if she had a malignancy causing bleeding. Therefore give age would treat with PPI and follow the patient without doing an EGD. If she has active bleeding and EGD needed for therapeutic intent then would do it. Daughther in agreement. Ok for clear liquid diet for now and will reassess diet in am. No carafate in case an EGD needed because that obscures view. As the supervising physician, I , Geovanny Basilio MD have spent 30 minutes of discrete time performing the activities of this visit which include but not limited to review of the medical records, obtaining a history, physical exam and entering information in the electronic record. GEOFF Luciano has reported spending 30 minutes of discrete time with the activities of this visit. History of Present Illness Attending Physician: Lisa Bravo MD History of Present Illness The patient is a pleasant 86-year-old female with past medical history to include hypertension, hyperlipidemia, duodenal bulb ulcer, COPD and dementia who presented to the emergency department from a personal intermediate with concerns for upper GI bleeding including heme positive stool and coffee-ground emesis. The patient has a history of large duodenal ulcer in 2019. She was subsequently admitted for further management and the GI service consulted. Prior records reviewed: 09/06/2018: [place] [facility] [place] blood [place] and melena with a large cratered duodenal bulb ulcer with adherent clot. Irregular Z-line was noted at 39 cm. Mild Schatzki's ring in the distal esophagus. Stomach had old signs of blood but no active signs of bleeding. In the duodenal bulb. There was a large essentially circumferential cratered ulcer that extended at least 5 cm towards the second portion of the duodenum. Initial attempts to remove the clot with the standard scope were unsuccessful. We injected epinephrine around the clot to try and stabilize bleeding as we saw oozing from around the clot. The scope was exchanged for a Super sucker scope at which time we were able to remove the vast majority of the adherent clot with water jet and ultimately with suction removing the clot back into the fundus of the stomach. This revealed the ulcer bed which was largely visualized. Additional epinephrine was injected into areas that appeared to be oozing inc luding one area that seemed to have a visible vessel with more active bleeding. A total of 15 mL of 1:10,000 epinephrine was used during the case. The bipolar cautery was then used to ablate the bleeding source is on the posterior wall of the ulcer bed. At the completion of the procedure, there was no active bleeding with aggressive lavage of the area. 09/05/2018: EGD notes reviewed performed at [facility] by Dr. Field due to acute posthemorrhagic anemia with abnormal CT of the GI tract which demonstrated a regular Z-line found 38 cm from the incisors. Examined esophagus was normal. The entire examined stomach was normal. 1 partially obstructing oozing cratered duodenal ulcer with adherent clot was found in the duodenal bulb. The lesion was 30 mm at the largest diameter. Perforation of the bowel wall cannot be ruled out. On exam/interview today, the patient reports overall she feels okay. She does have a history of dementia but is pleasant and alert to person. She denies any specific abdominal pain. Denies vomiting. She does report some mild nausea. She states she had a decreased appetite at home. She is unsure about bowel movement output since admission. She did give me permission to call her daughter, Beckie. I did call and speak to Beckie. Beckie reports that spoke to her mother yesterday around 1 PM and the patient declined coming over to visit then that afternoon if she was feeling sick. Beckie states she received a phone call about 9:00 stating that the patient had had emesis that was black in color and had been transferred to the emergency department. No routine NSAID use. Patient is a former longtime smoker. She quit smoking in 1992. No drugs or alcohol intake. Lives at [facility]. She has a . 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 Allergies Allergy/AdvReac Type Severity Reaction Status Date / Time bupropion [From Wellbutrin] Allergy Mild Unknown Unverified 10/23/21 23:15 hydrochlorothiazide Allergy Mild Unknown Unverified 01/03/21 10:08 [From Avalide] irbesartan [From Avalide] Allergy Mild Unknown Unverified 10/23/21 23:15 roflumilast [From Daliresp] Allergy Mild Unknown Unverified 10/23/21 23:15 denosumab [From Prolia] Allergy Unknown Unknown Verified 10/23/21 23:15 tramadol Allergy Unknown Unknown Verified 10/23/21 23:15 Sulfa (Sulfonamide AdvReac Intermediate Hives Unverified 05/23/21 11:42 Antibiotics) fentanyl [From Duragesic] AdvReac Mild Hallucinati Verified 05/23/21 11:42 ng ciprofloxacin [From Cipro] AdvReac Unknown Unknown Unverified 10/23/21 23:15 NSAIDS (Non-Steroidal AdvReac Unknown Unknown Unverified 10/23/21 23:15 Anti-Inflamma Home Medications Medication Instructions Recorded Confirmed Type amlodipine 5 mg tablet 5 mg PO DAILY 05/16/21 10/23/21 History citalopram 10 mg tablet (Celexa) 10 mg PO DAILY 05/16/21 10/23/21 History fluticasone furoate 200 1 inh INHALATION DAILY 05/16/21 10/23/21 History mcg-vilanterol 25 mcg/dose inhalation powder (Breo Ellipta) levothyroxine 50 mcg tablet 50 mcg PO QAM 05/16/21 10/23/21 History pantoprazole 40 mg tablet,delayed 40 mg PO BID 05/16/21 10/23/21 History release umeclidinium 62.5 mcg/actuation 1 inh INHALATION DAILY #3 ea 07/22/21 10/23/21 Rx blister powder for inhalation (Incruse Ellipta) acetaminophen 325 mg tablet 325 - 650 mg PO Q4 PRN 10/23/21 10/23/21 History (Tylenol) citalopram 20 mg tablet 20 mg PO DAILY 10/23/21 10/23/21 History methyl salicylate-menthol topical 1 applic TOPICAL QID PRN 10/23/21 10/23/21 History cream multivitamin with minerals-folic 2 tab PO QAM 10/23/21 10/23/21 History acid 200 mcg chewable tablet (Women's Multivitamin Gummies) polyethylene glycol 3350 17 17 g PO BID PRN 10/23/21 10/23/21 History gram/dose oral powder (Miralax) Patient History Medical History (Updated 10/24/21 @ 10:22 by Lisa Bravo MD) Anemia Anxiety Aortic stenosis Closed sacral fracture COPD (chronic obstructive pulmonary disease) Dehydration Delirium Dementia Depression Duodenal bulb ulcer Gallstones GI bleed Hyperlipidemia LDL goal <70 Hypertension Hyponatremia Hypothyroidism Left hip pain Murmur, cardiac Osteopenia Peptic ulcer disease Pneumonia Pseudomonas urinary tract infection Urinary retention Surgical History S/P AAA (abdominal aortic aneurysm) repair Family History Father , in his 70s of an NM. Hypertension Myocardial infarction Mother , in her 70s after a fall No problems noted. 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 Feels Safe at Home: Yes Assistive Devices: Glasses Review of Systems Review of Systems: All systems reviewed & are unremarkable except as noted in Subjective dementia but alert to person and answering questions appropriately Physical Exam Constitutional: WD/WN, vitals as above Respiratory: normal respiratory effort; no respiratory distress and no labored breathing Cardiovascular: Rate/Rhythm: regular rate and regular rhythm Gastrointestinal (Abdomen): normal bowel sounds, soft, nontender, no hepatosplenomegaly Psychiatric: Orientation: alert and oriented to person Results & Data ([facility]) Vital Signs (Past 12 Hours) Vital Signs Temp Pulse Pulse Resp BP BP Pulse Ox 10/24/21 05:02 90 10/24/21 04:38 36.9 C 82 17 146/63 H 92 10/24/21 00:29 72 18 152/78 H 97 10/23/21 22:45 36.9 C 92 H 98 H 18 162/83 H 162/83 H 98 Laboratory Results Laboratory Results - last 24 hr 10/23/21 10/23/21 10/23/21 22:17 22:17 22:17 WBC 12.21 H RBC 4.30 Hgb 13.1 Hct 39.3 MCV 91.4 MCH 30.5 MCHC 33.3 RDW Std Deviation 48.7 H RDW Coeff of Radhika 14.6 H Plt Count 299 MPV 9.9 Immature Gran % (Auto) 0.3 Neut % (Auto) 77.7 Lymph % (Auto) 15.9 Pershing % (Auto) 5.5 Eos % (Auto) 0.4 Baso % (Auto) 0.2 Neut # (Auto) 9.49 H Lymph # (Auto) 1.94 Pershing # (Auto) 0.67 H Eos # (Auto) 0.05 Baso # (Auto) 0.02 Immature Gran # (Auto) 0.04 H PT Cancelled INR Cancelled APTT Cancelled PTT Ratio Cancelled Sodium 135 L Potassium 3.6 Chloride 101 Carbon Dioxide 24 Anion Gap 10 BUN 17 Creatinine 0.77 Est Cr Clr Drug Dosing 42.2 Est GFR ( Amer) 81.6 Est GFR (Non-Af Amer) 70.4 BUN/Creatinine Ratio 22.1 H Glucose 103 H Calcium 9.5 Magnesium 1.5 L Total Bilirubin 1.7 H Direct Bilirubin 0.2 AST 20 ALT 11 Alkaline Phosphatase 70 Troponin I High Sens 5.3 Total Protein 7.2 Albumin 4.4 Lipase < 3 L TSH Thyroxine (T4) SARS-CoV-2, RNA, NAAT Blood Type Antibody Screen 10/23/21 10/23/21 10/23/21 22:17 23:13 23:40 WBC RBC Hgb Hct MCV MCH MCHC RDW Std Deviation RDW Coeff of Radhika Plt Count MPV Immature Gran % (Auto) Neut % (Auto) Lymph % (Auto) Pershing % (Auto) Eos % (Auto) Baso % (Auto) Neut # (Auto) Lymph # (Auto) Pershing # (Auto) Eos # (Auto) Baso # (Auto) Immature Gran # (Auto) PT INR APTT PTT Ratio Sodium Potassium Chloride Carbon Dioxide Anion Gap BUN Creatinine Est Cr Clr Drug Dosing Est GFR ( Amer) Est GFR (Non-Af Amer) BUN/Creatinine Ratio Glucose Calcium Magnesium Total Bilirubin Direct Bilirubin AST ALT Alkaline Phosphatase Troponin I High Sens Total Protein Albumin Lipase TSH 16.584 H Thyroxine (T4) SARS-CoV-2, RNA, NAAT NEGATIVE Blood Type O Negative Antibody Screen NEGATIVE 10/24/21 10/24/21 10/24/21 00:15 03:59 03:59 WBC 12.28 H RBC 3.94 L Hgb 12.3 Hct 36.2 L MCV 91.9 MCH 31.2 MCHC 34.0 RDW Std Deviation 48.5 H RDW Coeff of Radhika 14.3 Plt Count 263 MPV 9.4 Immature Gran % (Auto) 0.2 Neut % (Auto) 80.3 Lymph % (Auto) 13.2 Pershing % (Auto) 5.9 Eos % (Auto) 0.2 Baso % (Auto) 0.2 Neut # (Auto) 9.85 H Lymph # (Auto) 1.62 Pershing # (Auto) 0.73 H Eos # (Auto) 0.03 Baso # (Auto) 0.03 Immature Gran # (Auto) 0.02 PT 12.1 H INR 1.1 APTT 28.3 PTT Ratio 1.0 Sodium Potassium Chloride Carbon Dioxide Anion Gap BUN Creatinine Est Cr Clr Drug Dosing Est GFR ( Amer) Est GFR (Non-Af Amer) BUN/Creatinine Ratio Glucose Calcium Magnesium 1.8 Total Bilirubin Direct Bilirubin AST ALT Alkaline Phosphatase Troponin I High Sens Total Protein Albumin Lipase TSH Thyroxine (T4) SARS-CoV-2, RNA, NAAT Blood Type Antibody Screen 10/24/21 03:59 WBC RBC Hgb Hct MCV MCH MCHC RDW Std Deviation RDW Coeff of Radhika Plt Count MPV Immature Gran % (Auto) Neut % (Auto) Lymph % (Auto) Pershing % (Auto) Eos % (Auto) Baso % (Auto) Neut # (Auto) Lymph # (Auto) Pershing # (Auto) Eos # (Auto) Baso # (Auto) Immature Gran # (Auto) PT INR APTT PTT Ratio Sodium Potassium Chloride Carbon Dioxide Anion Gap BUN Creatinine Est Cr Clr Drug Dosing Est GFR ( Amer) Est GFR (Non-Af Amer) BUN/Creatinine Ratio Glucose Calcium Magnesium Total Bilirubin Direct Bilirubin AST ALT Alkaline Phosphatase Troponin I High Sens Total Protein Albumin Lipase TSH Thyroxine (T4) 8.8 SARS-CoV-2, RNA, NAAT Blood Type Antibody Screen Diagnostic Findings Chest X-Ray 10/23/21 22:50 XR chest 1V portable CLINICAL HISTORY: vomiting, gi bleed. COMPARISON STUDY: 05/23/2021 TECHNIQUE: 1 view of the chest FINDINGS: Single frontal view of the chest demonstrates the cardiomediastinal silhouette to be within normal limits. Mild asymmetric elevation of the right hemidiaphragm is again seen. The lungs are clear of alveolar opacities. There is no evidence for pleural effusion. There is no evidence for vascular congestion. There is no acute osseous pathology. IMPRESSION: 1. No acute cardiopulmonary disease. ACT 112: Negative or not required by law. Electronically signed by: Richie Ronquillo M.D. 10/24/2021 7:16 AM
[2021-10-24] MEDS: CITALOPRAM 20 MG TAB PO SCH (09:27)
[2021-10-24] MEDS: FLUTICASONE/VILANTEROL 200/25MCG 14 PUFFS/INHALER INH SCH (09:28)
[2021-10-24] MEDS: amLODIPine BESYLATE 5 MG TAB PO SCH (09:28)
[2021-10-24] MEDS: UMECLIDINIUM BROMIDE 62.5MCG/BLISTER 7 PUFFS/INHALER INH SCH (09:29)
--- NOTE | 2021-10-24 10:11 | Hospitalist Progress Note ---
Date of Service October 24, 2021 Assessment & Plan (1) GI bleed: Plan: 86-year-old female presenting with dark-colored emesis, heme positive stools concerning for upper GI bleed. Patient with history of large duodenal bulb ulcer in 2019 requiring endoscopic repair and transfusion of blood products. Patient does not take NSAIDs, aspirin. No alcohol use or recent steroids. She has been taking Protonix 40 mg twice daily at home. Presently hemodynamically stable, hemoglobin slightly down to 12.3 from 13.1 but received IVFs overnight Normal INR and platelet count. [address] No bleeding since admission, no further nausea, no melena continued stay on telemetry Keep patient n.p.o. Trend CBC every 8 hours. Transfuse for active bleed, symptomatic anemia or hemoglobin less than 7. Patient consented with daughter in the roomform is on chart Continue Protonix drip Sucralfate 4 times daily Zofran as needed for nausea GI consultation appreciated-awaiting to see if needs EGD Request records from [facility]-pending but [facility] has access (2) Hyperbilirubinemia: Plan: TBili 1.7 on admissin No abd pain, other LFTs normal follow LFTs today with next blood draw at 1100 (3) Delirium: Plan: Daughter reports patient has history of hospital induced delirium DOing ok so far but did pull out her IVs as per RN report from ER Frequent orientation Ambulation with assistance as needed Maintenance of sleep/wake cycle where possible Avoidance of possible delirium inducing agents (4) Hypomagnesemia: Plan: low on arrival, repleted, now normalized (5) COPD (chronic obstructive pulmonary disease): Plan: Patient with history of mild COPD. She follows with pulmonary. PFTs on 07/03/2019 with FEV1 to FVC = 60, FEV1 72% predicted. Adequate oxygenation on r oom air with no cough/shortness of breath or wheeze Continue umeclidinium, fluticasone and vilanterol Continue to monitor (6) Anxiety: Plan: Chronic. Stable on medications Continue Celexa 10 mg p.o. daily (7) Hypertension: Plan: Blood pressure mildly elevated at 152/78 Continue amlodipine 5 mg p.o. daily with holding parameters (8) Hypothyroidism: Plan: Chronic. Elevated TSH at 16.5. increase home Synthroid dose to 75 mcg p.o. every morning f/u TFTs as outpt in 4-6 weeks (9) Aortic stenosis: Plan: mild-moderate on ECHO from 2019 no symptoms monitor as outpt Plan: ProphylaxisSCDs to bilateral lower extremities CodeDNR/DNI per discussion with patient and daughter Dispocontinue stay on telemetry Admission and Anticipated Discharge Date Admission Date: October 24, 2021 Subjective Pt reports not feeling well but doesn't know why. Denies CP or OSB, no abd pain, n heartburn. Reports her stool is "splattering around" but RN reports she has not had anything more than a small piece of solid brown stool this AM. Otherwise pt reports that I should talk to her daughter Beckie because she knows all the information and admits that she herself forgets a lot of things. Tele with NSR, rates 80-100s Review of Systems Review of Systems: All systems reviewed & are unremarkable except as noted in HPI & below Physical Exam Constitutional: WD/WN, vitals as above Eyes: + anicteric sclerae Neck: trachea midline, no thyromegaly Respiratory: normal respiratory effort, lungs clear to auscultation Cardiovascular: Rate/Rhythm: regular rate and regular rhythm Heart Sounds: + murmur (3/6 ISABELLA at RUSB) Chest (Breasts): Chest: normal inspection of chest Gastrointestinal (Abdomen): normal bowel sounds, soft, nontender, no hepatosplenomegaly Musculoskeletal: Extremities: extremities normal to inspection; no cyanosis and no clubbing Skin: no rashes, warm and dry Neurologic: moves all extremities and awake; no focal motor deficits Psychiatric: Orientation: alert, oriented to person, oriented to place and cooperative Lymphatic: no lymphedema Results & Data Results & Data ([facility]) Vital Signs (Past 12 Hours) Vital Signs Temp Pulse Pulse Resp BP BP Pulse Ox 10/24/21 08:12 36.4 C L 77 19 152/64 H 95 10/24/21 05:02 90 10/24/21 04:38 36.9 C 82 17 146/63 H 92 10/24/21 00:29 72 18 152/78 H 97 10/23/21 22:45 36.9 C 92 H 98 H 18 162/83 H 162/83 H 98 Laboratory Results 10/24/21 10/24/21 10/24/21 Range/Units 03:59 03:59 03:59 WBC 12.28 H (4.8-10.8) K/uL RBC 3.94 L (4.2-5.4) M/uL Hgb 12.3 (12.0-16.0) g/dL Hct 36.2 L (37-47) % MCV 91.9 (80-100) fL MCH 31.2 (25-34) pg MCHC 34.0 (32-36) g/dL RDW Std Deviation 48.5 H (36.4-46.3) fL RDW Coeff of Radhika 14.3 (11.5-14.5) % Plt Count 263 (130-400) K/uL MPV 9.4 (7.4-10.4) fL Immature Gran % (Auto) 0.2 % Neut % (Auto) 80.3 % Lymph % (Auto) 13.2 % [place] % (Auto) 5.9 % Eos % (Auto) 0.2 % Baso % (Auto) 0.2 % Neut # (Auto) 9.85 H (1.4-6.5) K/uL Lymph # (Auto) 1.62 (1.2-3.4) K/uL [place] # (Auto) 0.73 H (0.11-0.59) K/uL Eos # (Auto) 0.03 (0-0.5) K/uL Baso # (Auto) 0.03 (0-0.2) K/uL Immature Gran # (Auto) 0.02 (0.00-0.02) K/uL PT INR APTT PTT Ratio Sodium (136-145) mmol/L Potassium (3.5-5.1) mmol/L Chloride (98-107) mmol/L Carbon Dioxide (21-32) mmol/L Anion Gap (3-11) BUN (6-23) mg/dl Creatinine (0.6-1.2) mg/dl Est Cr Clr Drug Dosing ml/min Est GFR ( Amer) ml/min Est GFR (Non-Af Amer) ml/min BUN/Creatinine Ratio (10-20) Glucose (70-99(Fasting)) mg/dl Calcium (8.5-10.1) mg/dl Magnesium 1.8 (1.7-2.4) mg/dl Total Bilirubin (0.2-1.0) mg/dl Direct Bilirubin (0-0.2) mg/dl AST (13-39) U/L ALT (7-52) U/L Alkaline Phosphatase (34-104) U/L Troponin I High Sens (0-14) pg/ml Total Protein (6.0-8.3) gm/dl Albumin (3.4-5.0) gm/dl Lipase (11-82) U/L TSH (0.300-4.500) uIu/ml Thyroxine (T4) 8.8 (6.09-12.23) mcg/dl SARS-CoV-2, RNA, NAAT (NEGATIVE) Blood Type Antibody Screen 10/24/21 10/23/21 10/23/21 Range/Units 00:15 23:40 23:13 WBC (4.8-10.8) K/uL RBC (4.2-5.4) M/uL Hgb (12.0-16.0) g/dL Hct (37-47) % MCV (80-100) fL MCH (25-34) pg MCHC (32-36) g/dL RDW Std Deviation (36.4-46.3) fL RDW Coeff of Radhika (11.5-14.5) % Plt Count (130-400) K/uL MPV (7.4-10.4) fL Immature Gran % (Auto) % Neut % (Auto) % Lymph % (Auto) % [place] % (Auto) % Eos % (Auto) % Baso % (Auto) % Neut # (Auto) (1.4-6.5) K/uL Lymph # (Auto) (1.2-3.4) K/uL [place] # (Auto) (0.11-0.59) K/uL Eos # (Auto) (0-0.5) K/uL Baso # (Auto) (0-0.2) K/uL Immature Gran # (Auto) (0.00-0.02) K/uL PT 12.1 H INR 1.1 APTT 28.3 PTT Ratio 1.0 Sodium (136-145) mmol/L Potassium (3.5-5.1) mmol/L Chloride (98-107) mmol/L Carbon Dioxide (21-32) mmol/L Anion Gap (3-11) BUN (6-23) mg/dl Creatinine (0.6-1.2) mg/dl Est Cr Clr Drug Dosing ml/min Est GFR ( Amer) ml/min Est GFR (Non-Af Amer) ml/min BUN/Creatinine Ratio (10-20) Glucose (70-99(Fasting)) mg/dl Calcium (8.5-10.1) mg/dl Magnesium (1.7-2.4) mg/dl Total Bilirubin (0.2-1.0) mg/dl Direct Bilirubin (0-0.2) mg/dl AST (13-39) U/L ALT (7-52) U/L Alkaline Phosphatase (34-104) U/L Troponin I High Sens (0-14) pg/ml Total Protein (6.0-8.3) gm/dl Albumin (3.4-5.0) gm/dl Lipase (11-82) U/L TSH (0.300-4.500) uIu/ml Thyroxine (T4) (6.09-12.23) mcg/dl SARS-CoV-2, RNA, NAAT NEGATIVE (NEGATIVE) Blood Type O Negative Antibody Screen NEGATIVE 10/23/21 10/23/21 10/23/21 Range/Units 22:17 22:17 22:17 WBC (4.8-10.8) K/uL RBC (4.2-5.4) M/uL Hgb (12.0-16.0) g/dL Hct (37-47) % MCV (80-100) fL MCH (25-34) pg MCHC (32-36) g/dL RDW Std Deviation (36.4-46.3) fL RDW Coeff of Radhika (11.5-14.5) % Plt Count (130-400) K/uL MPV (7.4-10.4) fL Immature Gran % (Auto) % Neut % (Auto) % Lymph % (Auto) % [place] % (Auto) % Eos % (Auto) % Baso % (Auto) % Neut # (Auto) (1.4-6.5) K/uL Lymph # (Auto) (1.2-3.4) K/uL [place] # (Auto) (0.11-0.59) K/uL Eos # (Auto) (0-0.5) K/uL Baso # (Auto) (0-0.2) K/uL Immature Gran # (Auto) (0.00-0.02) K/uL PT Cancelled INR Cancelled APTT Cancelled PTT Ratio Cancelled Sodium 135 L (136-145) mmol/L Potassium 3.6 (3.5-5.1) mmol/L Chloride 101 (98-107) mmol/L Carbon Dioxide 24 (21-32) mmol/L Anion Gap 10 (3-11) BUN 17 (6-23) mg/dl Creatinine 0.77 (0.6-1.2) mg/dl Est Cr Clr Drug Dosing 42.2 ml/min Est GFR ( Amer) 81.6 ml/min Est GFR (Non-Af Amer) 70.4 ml/min BUN/Creatinine Ratio 22.1 H (10-20) Glucose 103 H (70-99(Fasting)) mg/dl Calcium 9.5 (8.5-10.1) mg/dl Magnesium 1.5 L (1.7-2.4) mg/dl Total Bilirubin 1.7 H (0.2-1.0) mg/dl Direct Bilirubin 0.2 (0-0.2) mg/dl AST 20 (13-39) U/L ALT 11 (7-52) U/L Alkaline Phosphatase 70 (34-104) U/L Troponin I High Sens 5.3 (0-14) pg/ml Total Protein 7.2 (6.0-8.3) gm/dl Albumin 4.4 (3.4-5.0) gm/dl Lipase < 3 L (11-82) U/L TSH 16.584 H (0.300-4.500) uIu/ml Thyroxine (T4) (6.09-12.23) mcg/dl SARS-CoV-2, RNA, NAAT (NEGATIVE) Blood Type Antibody Screen 10/23/21 Range/Units 22:17 WBC 12.21 H (4.8-10.8) K/uL RBC 4.30 (4.2-5.4) M/uL Hgb 13.1 (12.0-16.0) g/dL Hct 39.3 (37-47) % MCV 91.4 (80-100) fL MCH 30.5 (25-34) pg MCHC 33.3 (32-36) g/dL RDW Std Deviation 48.7 H (36.4-46.3) fL RDW Coeff of Radhika 14.6 H (11.5-14.5) % Plt Count 299 (130-400) K/uL MPV 9.9 (7.4-10.4) fL Immature Gran % (Auto) 0.3 % Neut % (Auto) 77.7 % Lymph % (Auto) 15.9 % [place] % (Auto) 5.5 % Eos % (Auto) 0.4 % Baso % (Auto) 0.2 % Neut # (Auto) 9.49 H (1.4-6.5) K/uL Lymph # (Auto) 1.94 (1.2-3.4) K/uL [place] # (Auto) 0.67 H (0.11-0.59) K/uL Eos # (Auto) 0.05 (0-0.5) K/uL Baso # (Auto) 0.02 (0-0.2) K/uL Immature Gran # (Auto) 0.04 H (0.00-0.02) K/uL PT INR APTT PTT Ratio Sodium (136-145) mmol/L Potassium (3.5-5.1) mmol/L Chloride (98-107) mmol/L Carbon Dioxide (21-32) mmol/L Anion Gap (3-11) BUN (6-23) mg/dl Creatinine (0.6-1.2) mg/dl Est Cr Clr Drug Dosing ml/min Est GFR ( Amer) ml/min Est GFR (Non-Af Amer) ml/min BUN/Creatinine Ratio (10-20) Glucose (70-99(Fasting)) mg/dl Calcium (8.5-10.1) mg/dl Magnesium (1.7-2.4) mg/dl Total Bilirubin (0.2-1.0) mg/dl Direct Bilirubin (0-0.2) mg/dl AST (13-39) U/L ALT (7-52) U/L Alkaline Phosphatase (34-104) U/L Troponin I High Sens (0-14) pg/ml Total Protein (6.0-8.3) gm/dl Albumin (3.4-5.0) gm/dl Lipase (11-82) U/L TSH (0.300-4.500) uIu/ml Thyroxine (T4) (6.09-12.23) mcg/dl SARS-CoV-2, RNA, NAAT (NEGATIVE) Blood Type Antibody Screen PG Care Time/CCT Total # of Minutes Spent Total Time Spent with Patient: Total time spent is greater than 50% in coordination of care (as documented) at patient's floor/unit and/or counseling patient: Coding Level of Care Code 56017 Subseq Hosp Care Lvl 3 Diagnoses GI bleed K92.2 Delirium R41.0 COPD (chronic obstructive pulmonary disease) J44.9 Anxiety F41.9 Hypertension I10 Hypothyroidism E03.9 Aortic stenosis I35.0 Hyperbilirubinemia E80.6 Hypomagnesemia E83.42
[2021-10-24 11:36] LABS: Basophils # (auto) 0.02 K/uL (0-0.2); Basophils % (auto) 0.2 %; Eosinophils # (auto) 0.04 K/uL (0-0.5); Eosinophils % (auto) 0.3 %; Hematocrit (blood only) 36.9 % (37-47); Hemoglobin 12.2 g/dL (12.0-16.0); Immature Granulocytes # (auto) 0.02 K/uL (0.00-0.02); Immature Granulocytes % (auto) 0.2 %; Lymphocytes % (auto) 16.5 %; Mean Corpuscular Hemoglobin 30.2 pg (25-34); Mean Corpuscular Hgb Conc 33.1 g/dL (32-36); Mean Corpuscular Volume 91.3 fL (80-100); Mean Platelet Volume 9.6 fL (7.4-10.4); Monocytes # (auto) 0.75 K/uL (0.11-0.59); Monocytes % (auto) 5.9 %; Neutrophils % (auto) 76.9 %; Platelet Count 279 K/uL (130-400); RDW Coefficient of Variation 14.5 % (11.5-14.5); RDW Standard Deviation 48.8 fL (36.4-46.3); Red Blood Count 4.04 M/uL (4.2-5.4); White Blood Count 12.73 K/uL (4.8-10.8)
[2021-10-24 12:25] LABS: Alanine Aminotransferase 11 U/L (7-52); Alkaline Phosphatase 65 U/L (34-104); Bilirubin,Total 1.8 mg/dl (0.2-1.0); Total Protein 6.6 gm/dl (6.0-8.3)
[2021-10-24 12:26] LABS: Anion Gap 5 (3-11); BUN Creatinine Ratio 13.8 (10-20); Blood Urea Nitrogen 11 mg/dl (6-23); Calcium 8.9 mg/dl (8.5-10.1); Carbon Dioxide 30 mmol/L (21-32); Chloride 100 mmol/L (98-107); Creatinine Clr Calc Pharmacy 45.5 ml/min; Est GFR (African American) 77.9 ml/min; Est GFR (Non-African American) 67.2 ml/min; Glucose 115 mg/dl (70-99(Fasting)); Sodium 135 mmol/L (136-145)
[2021-10-24 13:18] LABS: Bilirubin Direct 0.3 mg/dl (0-0.2); Potassium 3.6 mmol/L (3.5-5.1)
--- NOTE | 2021-10-24 15:10 | Electrocardiogram Report ---
Test Reason : Blood Pressure : / mmHG Vent. Rate : 085 BPM Atrial Rate : 085 BPM P-R Int : 154 ms QRS Dur : 070 ms QT Int : 390 ms P-R-T Axes : 078 -18 027 degrees QTc Int : 464 ms Normal sinus rhythm Nonspecific ST and T wave abnormality Abnormal ECG When compared with ECG of 16-MAY-2021 16:15, Nonspecific T wave abnormality has replaced inverted T waves in Inferior leads Nonspecific T wave abnormality, improved in Lateral leads Confirmed by Shaun Perrin ([id number]) on 10/24/2021 3:10:20 PM Referred By: REFERRED SELF Confirmed By:Shaun Perrin
[2021-10-24] MEDS ORDERED: PIPERACILL/TAZOBAC CONSULT ACTIVE PRN (19:13)
[2021-10-24] MEDS ORDERED: PIPERACILLIN/TAZOBACTAM 3.375 GM in DEXTROSE 5% 100 ML IV ONE (20:00)
[2021-10-24 20:35] LABS: Basophils # (auto) 0.02 K/uL (0-0.2); Basophils % (auto) 0.2 %; Eosinophils # (auto) 0.05 K/uL (0-0.5); Eosinophils % (auto) 0.5 %; Hematocrit (blood only) 35.6 % (37-47); Hemoglobin 12.1 g/dL (12.0-16.0); Immature Granulocytes # (auto) 0.01 K/uL (0.00-0.02); Immature Granulocytes % (auto) 0.1 %; Lymphocytes # (auto) 1.53 K/uL (1.2-3.4); Lymphocytes % (auto) 13.8 %; Mean Corpuscular Hemoglobin 31.2 pg (25-34); Mean Corpuscular Volume 91.8 fL (80-100); Mean Platelet Volume 9.8 fL (7.4-10.4); Monocytes # (auto) 0.67 K/uL (0.11-0.59); Neutrophils % (auto) 79.4 %; Platelet Count 266 K/uL (130-400); RDW Coefficient of Variation 14.6 % (11.5-14.5); Red Blood Count 3.88 M/uL (4.2-5.4); White Blood Count 11.08 K/uL (4.8-10.8)
[2021-10-25] MEDS: PIPERACILLIN/TAZOBACTAM 3.375 GM in DEXTROSE 5% 100 ML IV SCH ×2 (00:14→09:08)
[2021-10-25] MEDS: PANTOprazole 40 MG in DEXTROSE 5% 100 ML IV SCH ×3 (02:18→11:26)
[2021-10-25 06:55] LABS: Basophils # (auto) 0.02 K/uL (0-0.2); Basophils % (auto) 0.2 %; Eosinophils # (auto) 0.08 K/uL (0-0.5); Eosinophils % (auto) 0.9 %; Hematocrit (blood only) 37.2 % (37-47); Hemoglobin 12.3 g/dL (12.0-16.0); Immature Granulocytes # (auto) 0.01 K/uL (0.00-0.02); Immature Granulocytes % (auto) 0.1 %; Lymphocytes # (auto) 1.52 K/uL (1.2-3.4); Lymphocytes % (auto) 16.3 %; Mean Corpuscular Hemoglobin 30.1 pg (25-34); Mean Corpuscular Hgb Conc 33.1 g/dL (32-36); Mean Corpuscular Volume 91.2 fL (80-100); Mean Platelet Volume 9.3 fL (7.4-10.4); Monocytes # (auto) 0.69 K/uL (0.11-0.59); Monocytes % (auto) 7.4 %; Neutrophils # (auto) 6.98 K/uL (1.4-6.5); Neutrophils % (auto) 75.1 %; Platelet Count 248 K/uL (130-400); RDW Coefficient of Variation 14.5 % (11.5-14.5); RDW Standard Deviation 48.6 fL (36.4-46.3); Red Blood Count 4.08 M/uL (4.2-5.4)
[2021-10-25 07:17] LABS: Albumin Level 3.7 gm/dl (3.4-5.0); BUN Creatinine Ratio 9.4 (10-20); Bilirubin Direct 0.3 mg/dl (0-0.2); Bilirubin,Total 2.1 mg/dl (0.2-1.0); Calcium 8.9 mg/dl (8.5-10.1); Est GFR (African American) 62.5 ml/min; Est GFR (Non-African American) 53.9 ml/min; Potassium 3.5 mmol/L (3.5-5.1); Total Protein 6.3 gm/dl (6.0-8.3)
--- NOTE | 2021-10-25 08:03 | Ultrasound Report ---
US gallbladder CLINICAL HISTORY: nausea/vomiting,hyperbilirubinemia TECHNIQUE: Multiple real-time sonographic images of the right upper quadrant were obtained. Comparison: None available at the time of this dictation. FINDINGS: The liver is diffusely homogenous with normal contour and echogenicity. No focal mass lesions are se en. No intrahepatic ductal dilatation is seen. Linear hyperechoic foci with posterior shadowing a re identified layering dependently within the gallbladder, which are consistent with gallstones. The gallbladder wall is not thickened. Adenomyomatosis is seen in the gallbladder wall. There is no peric holecystic fluid present. A sonographic Lorenzo's sign was not elicited by the chassis inspector. The com mon duct measures 0.2 cm in diameter at the level of the hepatic artery. Intrahepatic biliary promine nce is noted. The visualized portions of the pancreas appear normal. The right kidney shows normal echogenicity, cortical thickness and renal contour. The right kidney sh ows no evidence of hydronephrosis or mass. No ascites or free fluid is seen in Perez's pouch. IMPRESSION: 1. Gallstone without cholecystitis. 2. Adenomyomatosis. 3. Intrahepatic biliary ductal prominence without dilation of the main duct. ACT 112: Negative or not required by law. Electronically signed by: Americo Rogers M.D. 10/25/2021 8:02 AM
--- NOTE | 2021-10-25 08:42 | Gastroenterology Progress Note ---
Date of Service October 25, 2021 Assessment & Plan (1) GI bleed: Plan: Coffee-ground emesis: PUD in differential. Daughter, Beckie, decided no treatment if malignancy was causing bleeding. Continue treatment with PPI and defer EGD at present time. No presence of active bleeding at this time. Hemoglobin 12.3 and hematocrit 37.2 which is stable from yesterday. Continue clear liquid diet and advance diet as tolerated. Would avoid Carafate as recommended by Dr. Nando evans Nausea: gallbladder ultrasound was obtained due to nausea, elevated wbc, and rising bilirubin by medicine yesterday. Case reviewed with Dr. Basilio. Please refer to supervising physician addendum for further recommendations. I have spent 10 minutes of discrete time performing the activities of this visit which include but are not limited to review of the medical record, obtaining a history, physical exam, and entering information in the electronic record. Admission and Anticipated Discharge Date Admission Date: October 24, 2021 Supervising Physician Co-Signing Physician Notes I have seen and examined the patient. I agree with note above by GEOFF Luciano except as noted below. HPI Pt denies abd pain. Called daughter Beckie and patient did not really eat much liquids yesterday. Unclear if lack of eating from versus nausea. TB higher but US no obvious obstruction.US gallstones but no obvious cholecystitis. PE Abdomen pos bs, soft, no guarding nor rebound A/P coffee grouond emesis--if pt does not tolerate po liquids would check a/p CT yet. No imaging of luminal GI tract done yet this admit Gallstones---no evidence of cholecystitis elevated TB--no obvious bile duct pathology on US--follow for now. Mostly unconjugated As the supervising physician, I , Geovanny Basilio MD have spent 12 minutes of discrete time performing the activities of this visit which include but not limited to review of the medical records, obtaining a history, physical exam and entering information in the electronic record. GEOFF Luciano has reported spending 10 minutes of discrete time with the activities of this visit. Subjective The patient is awake and alert to person this morning. She is somewhat tearful this morning. She denies any specific abdominal pain, nausea, vomiting. She does have a history of dementia with associated hospital delirium in the past. This was reported by her daughter when I spoke to her yesterday. The patient has a clear liquid tray in front of her. She states she is not very hungry right now. No other voiced complaints or concerns this morning Review of Systems Review of Systems: Unobtainable due to cognitive status Physical Exam Gastrointestinal (Abdomen): normal bowel sounds, soft, nontender, no hepatosplenomegaly Results & Data ([facility]) Vital Signs (Past 12 Hours) Vital Signs Temp Pulse Pulse Resp BP Pulse Ox 10/25/21 08:03 37.0 C 68 18 161/65 H 93 10/25/21 04:37 36.2 C L 71 16 145/63 H 10/25/21 01:05 76 10/25/21 00:42 36.9 C 16 167/72 H 95 Laboratory Results Laboratory Results - last 24 hr 10/24/21 10/24/21 10/24/21 10:58 10:58 10:58 WBC 12.73 H RBC 4.04 L Hgb 12.2 Hct 36.9 L MCV 91.3 MCH 30.2 MCHC 33.1 RDW Std Deviation 48.8 H RDW Coeff of Radhika 14.5 Plt Count 279 MPV 9.6 Immature Gran % (Auto) 0.2 Neut % (Auto) 76.9 Lymph % (Auto) 16.5 [place] % (Auto) 5.9 Eos % (Auto) 0.3 Baso % (Auto) 0.2 Neut # (Auto) 9.80 H Lymph # (Auto) 2.10 [place] # (Auto) 0.75 H Eos # (Auto) 0.04 Baso # (Auto) 0.02 Immature Gran # (Auto) 0.02 Sodium 135 L Potassium TNP Chloride 100 Carbon Dioxide 30 Anion Gap 5 BUN 11 Creatinine 0.80 Est Cr Clr Drug Dosing 45.5 Est GFR ( Amer) 77.9 Est GFR (Non-Af Amer) 67.2 BUN/Creatinine Ratio 13.8 Glucose 115 H Calcium 8.9 Total Bilirubin 1.8 H Direct Bilirubin TNP AST TNP ALT 11 Alkaline Phosphatase 65 Total Protein 6.6 Albumin 4.0 Nasal Screen MRSA (PCR) 10/24/21 10/24/21 10/24/21 11:04 11:20 19:04 WBC 11.08 H RBC 3.88 L Hgb 12.1 Hct 35.6 L MCV 91.8 MCH 31.2 MCHC 34.0 RDW Std Deviation 49.0 H RDW Coeff of Radhika 14.6 H Plt Count 266 MPV 9.8 Immature Gran % (Auto) 0.1 Neut % (Auto) 79.4 Lymph % (Auto) 13.8 [place] % (Auto) 6.0 Eos % (Auto) 0.5 Baso % (Auto) 0.2 Neut # (Auto) 8.80 H Lymph # (Auto) 1.53 [place] # (Auto) 0.67 H Eos # (Auto) 0.05 Baso # (Auto) 0.02 Immature Gran # (Auto) 0.01 Sodium Potassium 3.6 Chloride Carbon Dioxide Anion Gap BUN Creatinine Est Cr Clr Drug Dosing Est GFR ( Amer) Est GFR (Non-Af Amer) BUN/Creatinine Ratio Glucose Calcium Total Bilirubin Direct Bilirubin 0.3 H AST 17 ALT Alkaline Phosphatase Total Protein Albumin Nasal Screen MRSA (PCR) Negative 10/25/21 10/25/21 06:40 06:40 WBC 9.30 RBC 4.08 L Hgb 12.3 Hct 37.2 MCV 91.2 MCH 30.1 MCHC 33.1 RDW Std Deviation 48.6 H RDW Coeff of Radhika 14.5 Plt Count 248 MPV 9.3 Immature Gran % (Auto) 0.1 Neut % (Auto) 75.1 Lymph % (Auto) 16.3 [place] % (Auto) 7.4 Eos % (Auto) 0.9 Baso % (Auto) 0.2 Neut # (Auto) 6.98 H Lymph # (Auto) 1.52 [place] # (Auto) 0.69 H Eos # (Auto) 0.08 Baso # (Auto) 0.02 Immature Gran # (Auto) 0.01 Sodium 135 L Potassium 3.5 Chloride 100 Carbon Dioxide 30 Anion Gap 5 BUN 9 Creatinine 0.96 Est Cr Clr Drug Dosing 37.0 Est GFR ( Amer) 62.5 Est GFR (Non-Af Amer) 53.9 BUN/Creatinine Ratio 9.4 L Glucose 102 H Calcium 8.9 Total Bilirubin 2.1 H Direct Bilirubin 0.3 H AST 15 ALT 9 Alkaline Phosphatase 64 Total Protein 6.3 Albumin 3.7 Nasal Screen MRSA (PCR) Diagnostic Findings Gallbladder Ultrasound 10/24/21 19:01 US gallbladder CLINICAL HISTORY: nausea/vomiting,hyperbilirubinemia TECHNIQUE: Multiple real-time sonographic images of the right upper quadrant were obtained. Comparison: None available at the time of this dictation. FINDINGS: The liver is diffusely homogenous with normal contour and echogenicity. No focal mass lesions are seen. No intrahepatic ductal dilatation is seen. L inear hyperechoic foci with posterior shadowing are identified layering dependently within the gallbladder, which are consistent with gallstones. The gallbladder wall is not thickened. Adenomyomatosis is seen in the gallbladder wall. There is no pericholecystic fluid present. A sonographic Lorenzo's sign was not elicited by the supervisor continuous weld pipe mill. The common duct measures 0.2 cm in diameter at the level of the hepatic artery. Intrahepatic biliary prominence is noted. The visualized portions of the pancreas appear normal. The right kidney shows normal echogenicity, cortical thickness and renal co ntour. The right kidney shows no evidence of hydronephrosis or mass. No ascites or free fluid is seen in Perez's pouch. IMPRESSION: 1. Gallstone without cholecystitis. 2. Adenomyomatosis. 3. Intrahepatic biliary ductal prominence without dilation of the main duct. ACT 112: Negative or not required by law. Electronically signed by: Americo Rogers M.D. 10/25/2021 8:02 AM
[2021-10-25] MEDS: CITALOPRAM 20 MG TAB PO SCH (09:05)
[2021-10-25] MEDS: amLODIPine BESYLATE 5 MG TAB PO SCH (09:05)
[2021-10-25] MEDS: FLUTICASONE/VILANTEROL 200/25MCG 14 PUFFS/INHALER INH SCH (09:05)
[2021-10-25] MEDS: LEVOTHYROXINE SODIUM 75 MCG TABLET PO SCH (09:05)
[2021-10-25] MEDS: UMECLIDINIUM BROMIDE 62.5MCG/BLISTER 7 PUFFS/INHALER INH SCH (09:06)
--- NOTE | 2021-10-25 14:34 | Hospitalist Progress Note ---
Date of Service October 25, 2021 Assessment & Plan (1) GI bleed: Plan: Hemoglobin is stable. GI consultation noted. No EGD at this time. Protonix drip switched to parenteral Protonix every 12 hours. Clear liquid diet started. Will advance as tolerated. History of large duodenal bulb ulcer in 2019 requiring endoscopic repair and transfusion of blood products. Patient does not take NSAIDs, aspirin. No alcohol use or recent steroids. She has been taking Protonix 40 mg twice daily at home. (2) Hyperbilirubinemia: Plan: Elevation on admission. No evidence of acute cholecystitis on gallbladder ultrasound. Will follow (3) Delirium: Plan: Daughter reports patient has history of hospital induced delirium. Supportive care. Treat as necessary (4) Hypomagnesemia: Plan: Replaced. Serial labs (5) COPD (chronic obstructive pulmonary disease): Plan: Stable on current medical management. Continue umeclidinium, fluticasone and vilanterol (6) Anxiety: Plan: Chronic. Stable . Continue Celexa 10 mg p.o. daily (7) Hypertension: Plan: Continue amlodipine 5 mg p.o. daily with holding parameters (8) Hypothyroidism: Plan: Chronic. Elevated TSH at 16.5. Increased home Synthroid dose to 75 mcg p.o. every morning. f/u TFTs as outpt in 4-6 weeks (9) Aortic stenosis: Plan: mild-moderate on ECHO from 2019. No symptoms. Monitor as outpt Plan: ProphylaxisSCDs to bilateral lower extremities CodeDNR/DNI per discussion with patient and daughter Dispoeventual discharge to home. Hopefully tomorrow, October 26 Admission and Anticipated Discharge Date Admission Date: October 24, 2021 Subjective Alert and oriented. No distress. No overt GI bleeding at this time. Hemoglobin is stable at 12. GI consultation noted. No EGD at this time. Protonix drip switched to intravenous dosing every 12 hours. Zosyn is discontinued since no evidence of acute cholecystitis seen on gallbladder ultrasound. Clear liquid diet started and will advance as tolerated. OT and PT assessments requested. Possible discharge to home tomorrow, October 26, if stable Review of Systems Review of Systems: Constitutional-no fever or chills ENT-no blurred vision, no double vision, no epistaxis, no sore throat Respiratory-no cough, no wheezing, no shortness of breath Cardiac-no palpitations, no chest pain, no syncope GI-no nausea, vomiting, diarrhea, melena, hematochezia -no urinary retention, no urinary incontinence, no dysuria, no hematuria Musculoskeletal-no joint pain, no muscle tenderness Skin-no bruising, no rashes, no pruritus Neuro-no isolated weakness, no paresthesia, no weakness Psych-no depression, no anxiety Physical Exam Physical Exam: General-alert and oriented x3, no fevers, no chills HEENT-head atraumatic and normocephalic, TMs intact bilaterally, pupils equal and reactive to light, extraocular muscles intact Neck-no lymphadenopathy or thyromegaly, trachea midline Chest-clear to auscultation percussion. No rales wheezing or rhonchi Cardiac-regular rate and rhythm, normal S1 and S2, no murmurs Abdomen-normal bowel sounds, nontender, no hepatosplenomegaly Extremities-no cyanosis, clubbing, or edema Neuro-cranial nerves II through XII intact, motor and sensory function within normal limits, strength symmetrical , no focal deficits Psych-normal affect, normal mood Results & Data Results & Data ([facility]) Vital Signs (Past 12 Hours) Vital Signs Temp Pulse Pulse Resp BP Pulse Ox 10/25/21 11:30 36.8 C 74 18 107/54 L 94 10/25/21 08:03 37.0 C 68 18 161/65 H 93 10/25/21 07:56 64 10/25/21 04:37 36.2 C L 71 16 145/63 H Laboratory Results 10/25/21 06:40 10/25/21 06:40 PG Care Time/CCT Total # of Minutes Spent Total Time Spent with Patient: Total time spent is greater than 50% in coordination of care (as documented) at patient's floor/unit and/or counseling patient: Coding Level of Care Code 95104 Subseq Hosp Care Lvl 3 Diagnoses GI bleed K92.2 Hyperbilirubinemia E80.6 Delirium R41.0 Hypomagnesemia E83.42 COPD (chronic obstructive pulmonary disease) J44.9 Anxiety F41.9 Hypertension I10 Hypothyroidism E03.9 Aortic stenosis I35.0
[2021-10-25] MEDS: PANTOprazole 40 MG in SYRINGE 0 ML IV SCH (20:09)
[2021-10-26] MEDS: LEVOTHYROXINE SODIUM 75 MCG TABLET PO SCH (06:19)
[2021-10-26 08:05] LABS: Basophils # (auto) 0.02 K/uL (0-0.2); Basophils % (auto) 0.4 %; Eosinophils # (auto) 0.18 K/uL (0-0.5); Eosinophils % (auto) 3.2 %; Hematocrit (blood only) 37.1 % (37-47); Hemoglobin 12.7 g/dL (12.0-16.0); Immature Granulocytes # (auto) 0.01 K/uL (0.00-0.02); Immature Granulocytes % (auto) 0.2 %; Lymphocytes # (auto) 1.32 K/uL (1.2-3.4); Lymphocytes % (auto) 23.2 %; Mean Corpuscular Hemoglobin 31.3 pg (25-34); Mean Corpuscular Hgb Conc 34.2 g/dL (32-36); Mean Corpuscular Volume 91.4 fL (80-100); Mean Platelet Volume 9.7 fL (7.4-10.4); Monocytes % (auto) 10.6 %; Neutrophils # (auto) 3.55 K/uL (1.4-6.5); Neutrophils % (auto) 62.4 %; Platelet Count 253 K/uL (130-400); RDW Coefficient of Variation 14.3 % (11.5-14.5); RDW Standard Deviation 48.1 fL (36.4-46.3); Red Blood Count 4.06 M/uL (4.2-5.4); White Blood Count 5.68 K/uL (4.8-10.8)
[2021-10-26 08:30] LABS: Albumin Level 3.9 gm/dl (3.4-5.0); BUN Creatinine Ratio 12.5 (10-20); Bilirubin Direct 0.2 mg/dl (0-0.2); Bilirubin,Total 1.5 mg/dl (0.2-1.0); Calcium 9.3 mg/dl (8.5-10.1); Creatinine Clr Calc Pharmacy 44.4 ml/min; Est GFR (African American) 77.9 ml/min; Est GFR (Non-African American) 67.2 ml/min; Potassium 3.6 mmol/L (3.5-5.1); Total Protein 6.9 gm/dl (6.0-8.3)
[2021-10-26] MEDS: UMECLIDINIUM BROMIDE 62.5MCG/BLISTER 7 PUFFS/INHALER INH SCH (08:31)
[2021-10-26] MEDS: FLUTICASONE/VILANTEROL 200/25MCG 14 PUFFS/INHALER INH SCH (08:31)
[2021-10-26] MEDS: amLODIPine BESYLATE 5 MG TAB PO SCH (08:31)
[2021-10-26] MEDS: CITALOPRAM 20 MG TAB PO SCH (08:31)
--- NOTE | 2021-10-26 08:33 | Gastroenterology Progress Note ---
Date of Service October 26, 2021 Assessment & Plan (1) GI bleed: Plan: Coffee-ground emesis: PUD in differential. Discussed with daughter, Beckie, decided no treatment if malignancy was causing bleeding. Continue treatment with PPI and defer EGD at present time. No presence of active bleeding at this time. Hemoglobin 12.3 and hematocrit 37.2 which is stable from yesterday. Advance diet as tolerated. Would avoid Carafate as recommended by Dr. Basilio. Nausea: patient tolerating clear liquid diet this morning. consider CT A/P if worsens Gallstones---no evidence of cholecystitis. antibiotic discontinued by medicine. elevated TB--no obvious bile duct pathology on US--follow for now. Mostly unconjugated Case reviewed with Dr. Basilio. Please refer to supervising physician addendum for further recommendations. I have spent 15 minutes of discrete time performing the activities of this visit which include but are not limited to review of the medical record, obtaining a history, physical exam, and entering information in the electronic record. Admission and Anticipated Discharge Date Admission Date: October 24, 2021 Supervising Physician Co-Signing Physician Notes I have seen and examined the patient. I agree with note above by GEOFF Luciano except as noted below. HPI Pt denies abd pain. PE Abdomen pos bs, soft, no guarding nor rebound A/P Coffee ground emesis. resolved, continue PPI elevated TB improved Pt is being DCed today and leaving at 430 per nursing. As the supervising physician, I , Geovanny Basilio MD have spent 8 minutes of discrete time performing the activities of this visit which include but not limited to review of the medical records, obtaining a history, physical exam and entering information in the electronic record. GEOFF Luciano has reported spending 15 minutes of discrete time with the activities of this visit. Subjective Patient awake and alert to person this morning. History of dementia. States she is feeling "not too bad". She is tolerating clear liquid diet this morning. States she had some mild nausea this morning but improved after beginning drinking her tea. Denies any abdominal pain. She states she has not passed any flatus. Unclear when her last bowel movement was. Nursing documentation reviewed and no stools are documented during admission. Review of Systems Review of Systems: Other History of dementia but answering questions appropriately as noted in subjective Physical Exam Gastrointestinal (Abdomen): normal bowel sounds, soft, nontender, no hepatosplenomegaly Results & Data ([facility]) Vital Signs (Past 12 Hours) Vital Signs Temp Pulse Pulse Resp BP BP Pulse Ox 10/26/21 08:31 36.7 C 55 L 18 161/74 H 94 10/26/21 07:00 62 10/26/21 03:00 36.6 C 66 16 165/78 H 96 10/26/21 01:28 63 10/25/21 23:45 36.8 C 72 18 166/82 H 94 Laboratory Results Laboratory Results - last 24 hr 10/26/21 10/26/21 07:47 07:47 WBC 5.68 RBC 4.06 L Hgb 12.7 Hct 37.1 MCV 91.4 MCH 31.3 MCHC 34.2 RDW Std Deviation 48.1 H RDW Coeff of Radhika 14.3 Plt Count 253 MPV 9.7 Immature Gran % (Auto) 0.2 Neut % (Auto) 62.4 Lymph % (Auto) 23.2 [place] % (Auto) 10.6 Eos % (Auto) 3.2 Baso % (Auto) 0.4 Neut # (Auto) 3.55 Lymph # (Auto) 1.32 [place] # (Auto) 0.60 H Eos # (Auto) 0.18 Baso # (Auto) 0.02 Immature Gran # (Auto) 0.01 Sodium 138 Potassium 3.6 Chloride 102 Carbon Dioxide 30 Anion Gap 6 BUN 10 Creatinine 0.80 Est Cr Clr Drug Dosing 44.4 Est GFR ( Amer) 77.9 Est GFR (Non-Af Amer) 67.2 BUN/Creatinine Ratio 12.5 Glucose 90 Calcium 9.3 Total Bilirubin 1.5 H Direct Bilirubin 0.2 AST 16 ALT 9 Alkaline Phosphatase 69 Total Protein 6.9 Albumin 3.9
[2021-10-26] MEDS: PANTOprazole 40 MG in SYRINGE 0 ML IV SCH (08:34)
--- NOTE | 2021-10-26 11:14 | Discharge Summary ---
Date of Service October 26, 2021 Admission HPI Per Admitting Provider Jennifer Rodriguez is an 86-year-old female with history of hypertension, hyperlipidemia, duodenal bulb ulcer, COPD and dementia presenting with concern for GI bleed. Patient presently resides at [facility]. Per nursing report patient had not been feeling well all day. She did not come out of her room. Around 1900 she developed nausea and vomiting of dark-colored liquid, question of blood. Patient with history of dementia. She is unable to provide clear details of events prior to arrival. She does state that "something is wrong with me and its not normal". Otherwise, she denies chest pain, cough, shortness of breath. Denies fever, chills, abdominal pain, diarrhea. No additional complaints In the ER, patient afebrile, hemodynamically stable (heart rate of 98 bpm on arrival, now 72 bpm). Patient had heme positive stools. Daughter is at bedside and assists with history. Of importance, patient presented with an upper GI bleed in September 2018. Findings suspicious for ulceration noted on imaging. Patient was taking meloxicam at the time. She had an EGD performed on 09/05/[address] Field which revealed a large, cratered duodenal bulb ulcer measuring approximately 30 mm. Patient was evaluated by surgery as well. She did have significant hematemesis during that hospitalization with hemorrhagic shock requiring transfusion of 5 units packed red blood cells and management in the medical ICU. She was ultimately transferred to [facility] for more aggressive GI/surgical treatment. Daughter states that ulcer was fixed at [place] with an EGD. We will request records ER course: Protonix 80 mg IV, Zofran 4 mg IV, magnesium 1 g IV Principal Diagnosis Suspected upper GI bleed, hypomagnesemia Discharge Exam General-alert and oriented x3, no fevers, no chills HEENT-head atraumatic and normocephalic, TMs intact bilaterally, pupils equal and reactive to light, extraocular muscles intact Neck-no lymphadenopathy or thyromegaly, trachea midline Chest-clear to auscultation percussion. No rales wheezing or rhonchi Cardiac-regular rate and rhythm, normal S1 and S2, no murmurs Abdomen-normal bowel sounds, nontender, no hepatosplenomegaly Extremities-no cyanosis, clubbing, or edema Neuro-cranial nerves II through XII intact, motor and sensory function within no rmal limits, strength symmetrical , no focal deficits Psych-normal affect, normal mood Discharge Data Allergies Allergy/AdvReac Type Severity Reaction Status Date / Time bupropion [From Wellbutrin] Allergy Mild Unknown Unverified 10/23/21 23:15 hydrochlorothiazide Allergy Mild Unknown Unverified 01/03/21 10:08 [From Avalide] irbesartan [From Avalide] Allergy Mild Unknown Unverified 10/23/21 23:15 roflumilast [From Daliresp] Allergy Mild Unknown Unverified 10/23/21 23:15 denosumab [From Prolia] Allergy Unknown Unknown Verified 10/23/21 23:15 tramadol Allergy Unknown Unknown Verified 10/23/21 23:15 Sulfa (Sulfonamide AdvReac Intermediate Hives Unverified 05/23/21 11:42 Antibiotics) fentanyl [From Duragesic] AdvReac Mild Hallucinati Verified 05/23/21 11:42 ng ciprofloxacin [From Cipro] AdvReac Unknown Unknown Unverified 10/23/21 23:15 NSAIDS (Non-Steroidal AdvReac Unknown Unknown Unverified 10/23/21 23:15 Anti-Inflamma Consultations 10/24/21 00:01 ED Decision to Admit Stat 10/24/21 06:19 Consult Gastroenterology Routine 10/24/21 16:05 HIM [Consult Health Information Management] Routine Ordered Studies 10/24/21 19:01 US gallbladder Urgent Hospital Course (1) GI bleed: Hemoglobin remains stable. GI consultation noted. No EGD at this time. Protonix drip switched to parenteral Protonix every 12 hours. Clear liquid diet advanced to regular diet. History of large duodenal bulb ulcer in 2019 requiring endoscopic repair and transfusion of blood products. Patient does not take NSAIDs, aspirin. No alcohol use or recent steroids. She has been taking Protonix 40 mg twice daily at home. (2) Hyperbilirubinemia: Elevation on admission. No evidence of acute cholecystitis on gallbladder ultrasound. Will follow (3) Delirium: Daughter reports patient has history of hospital induced delirium. Supportive care. Treat as necessary (4) Hypomagnesemia: Replaced. Serial labs (5) COPD (chronic obstructive pulmonary disease): Stable on current medical management. Continue umeclidinium, fluticasone and vilanterol (6) Anxiety: Chronic. Stable . Continue Celexa 10 mg p.o. daily (7) Hypertension: Continue amlodipine 5 mg p.o. daily with holding parameters (8) Hypothyroidism: Chronic. Elevated TSH at 16.5. Increased home Synthroid dose to 75 mcg p.o. every morning. f/u TFTs as outpt in 4-6 weeks (9) Aortic stenosis: mild-moderate on ECHO from 2019. No symptoms. Monitor as outpt ProphylaxisSCDs to bilateral lower extremities CodeDNR/DNI per discussion with patient and daughter Dispol discharge [facility] today, October 26 Total Time Total Time Spent Total Time Spent (In Minutes): 35 minutes Discharge Plan Discharge Items Patient Disposition: [facility] Reason For Visit: GI BLEED Discharge Diagnosis: Suspected upper GI bleed, hypomagnesemia Activity: Resume your previous activity Non-emergency contact: Primary Care Provider Call non-emergency contact if: you have any medication questions and your symptoms worsen Follow-up/Referrals: [facility] [Primary Care Provider[facility] - Diet: Heart Healthy Addtl Attending Provider Instructions: Thyroid dosage has been increased. Continue Protonix and Carafate to prevent any further gastrointestinal bleeding Pending Studies at Discharge: No Stand-Alone Forms: [email or web address], Smoking Cessation Skilled Items Patient informed of condition?: Yes DNR: Yes Discharge Level of Care: Other Communicable Disease: No Discharge Prognosis: Stable Lines: None Urinary Catheter: No Medications and DC Order Prescriptions: New pantoprazole 40 mg Tablet,Delayed Release (Dr/Ec) 40 mg PO BID Qty: 60 RF: 0 levothyroxine [Synthroid] 75 mcg Tablet 75 mcg PO DAILYBB Qty: 30 RF: 0 sucralfate [Carafate] 1 gram tablet 1 g PO ACHS Qty: 60 RF: 0 Continued Incruse Ellipta 62.5 mcg/actuation blister with device 1 inh inhalation DAILY Qty: 3 RF: 3 citalopram 20 mg tablet 20 mg PO DAILY RF: 0 polyethylene glycol 3350 [Miralax] 17 gram/dose Powder 17 g PO BID PRN (Reason: Constipation) RF: 0 methyl salicylate-menthol Cream 1 applic TOPICAL QID PRN (Reason: Pain) RF: 0 Women's Multivitamin Gummies 200 mcg Tablet,Chewable 2 tab PO QAM RF: 0 acetaminophen [Tylenol] 325 mg Tablet 325 - 650 mg PO Q4 PRN (Reason: Fever Or Pain) RF: 0 citalopram [Celexa] 10 mg Tablet 10 mg PO DAILY RF: 0 amlodipine 5 mg tablet 5 mg PO DAILY RF: 0 levothyroxine 50 mcg tablet 50 mcg PO QAM RF: 0 pantoprazole 40 mg tablet,delayed release (DR/EC) 40 mg PO BID RF: 0 Breo Ellipta 200-25 mcg/dose blister with device 1 inh INHALATION DAILY RF: 0 Discharge Orders: Discharge Order (Routine); Ordered 10/26/21 Ordered By: Behzad Joshua Admission Data Admit Date/Time: 10/24/21 00:50 Attending Provider: Behzad Joshua Admit Provider: Alee De Souza Primary Care Provider: [facility] Other Providers: Alee De Souza ; Geovanny Basilio Coding Level of Care Code D/C DAY MANAGEMENT >30 MINS Diagnoses GI bleed K92.2 Hyperbilirubinemia E80.6 Delirium R41.0 Hypomagnesemia E83.42 COPD (chronic obstructive pulmonary disease) J44.9 Anxiety F41.9 Hypertension I10 Hypothyroidism E03.9 Aortic stenosis I35.0
[2021-10-26] MEDS ORDERED: PANTOprazole 40 MG TAB PO SCH (21:00)
== END 2021-10-26 16:49 | disposition home or self-care (01) | DRG 378 ==
LOC: ED 22:37 → 2S 10-24 00:50 → SUATTDRO 10-24 00:50 → 2S 10-24 02:32

== ENCOUNTER 2022-02-10 22:48 | Inpatient (IN) ==
--- NOTE | 2022-02-10 23:02 | Emergency Department Note ---
History of Present Illness General Chief complaint: Altered Mental Status Stated complaint: altered mental status History of Present Illness 87-year-old female presents from a [facility] reportedly has been acting confused and hallucinating for the past day. Patient states that she understands that she is hallucinating. Patient denies nausea vomiting diarrhea denies specific abdominal pain has had problems with urinary tract infection in the past. Has no other complaints that she is a poor historian as to her presentation. Home Medications Medication Instructions Recorded Confirmed Type citalopram 10 mg tablet (Celexa) 10 mg PO DAILY 05/16/21 02/11/22 History fluticasone furoate 200 1 inh inhalation DAILY 05/16/21 02/11/22 History mcg-vilanterol 25 mcg/dose inhalation powder (Breo Ellipta) umeclidinium 62.5 mcg/actuation 1 inh inhalation DAILY #3 ea 07/22/21 02/11/22 Rx blister powder for inhalation (Incruse Ellipta) acetaminophen 325 mg tablet 325 - 650 mg PO Q4 PRN Fever Or 10/23/21 02/11/22 History (Tylenol) Pain citalopram 20 mg tablet 20 mg PO DAILY 10/23/21 02/11/22 History methyl salicylate-menthol topical 1 applic topical QID PRN Pain 10/23/21 02/11/22 History cream multivitamin with minerals-folic 2 tab PO QAM 10/23/21 02/11/22 History acid 200 mcg chewable tablet (Women's Multivitamin Gummies) polyethylene glycol 3350 17 17 g PO BID PRN Constipation 10/23/21 02/11/22 History gram/dose oral powder (Miralax) levothyroxine 75 mcg tablet 75 mcg PO DAILYBB #30 tabs 10/26/21 02/11/22 Rx (Synthroid) sucralfate 1 gram tablet (Carafate) 1 g PO ACHS #60 tabs 10/26/21 02/11/22 Rx Lidocain Pain Relief Patch 1 patch topical Q8 PRN Pain 02/11/22 02/11/22 History amlodipine 2.5 mg tablet 2.5 mg PO DAILY 02/11/22 02/11/22 History calcitonin (salmon) 200 1 spray intranasal (ALT) Q OTHER 02/11/22 02/11/22 History unit/actuation nasal spray DAY loperamide 2 mg tablet 2 mg PO UD PRN Adequate Ventilation 02/11/22 02/11/22 History (Anti-Diarrheal (loperamide)) Allergies Allergy/AdvReac Type Severity Reaction Status Date / Time bupropion [From Wellbutrin] Allergy Mild Unknown Unverified 02/11/22 00:15 hydrochlorothiazide Allergy Mild Unknown Unverified 02/11/22 00:15 [From Avalide] irbesartan [From Avalide] Allergy Mild Unknown Unverified 02/11/22 00:15 roflumilast [From Daliresp] Allergy Mild Unknown Unverified 02/11/22 00:15 denosumab [From Prolia] Allergy Unknown Unknown Verified 02/11/22 00:15 tramadol Allergy Unknown Unknown Verified 02/11/22 00:16 Sulfa (Sulfonamide AdvReac Intermediate Hives Unverified 01/29/22 09:24 Antibiotics) fentanyl [From Duragesic] AdvReac Mild Hallucinati Verified 01/29/22 09:24 ng ciprofloxacin [From Cipro] AdvReac Unknown Unknown Unverified 02/11/22 00:15 NSAIDS (Non-Steroidal AdvReac Unknown Unknown Unverified 02/11/22 00:15 Anti-Inflamma Past Med/Surg History Medical History Anemia Anxiety Aortic stenosis Closed sacral fracture COPD (chronic obstructive pulmonary disease) Dehydration Delirium Dementia Depression Duodenal bulb ulcer Gallstones GI bleed Hyperlipidemia LDL goal <70 Hypertension Hyponatremia Hypothyroidism Left hip pain Murmur, cardiac Osteopenia Peptic ulcer disease Pneumonia Pseudomonas urinary tract infection Urinary retention Surgical History S/P AAA (abdominal aortic aneurysm) repair Family History Father , in his 70s of an [place]. Hypertension Myocardial infarction Mother , in her 70s after a fall No problems noted. 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 Feels Safe at Home: Yes Assistive Devices: Walker Review of Systems A total of 10 systems reviewed and were otherwise negative Constitutional: no fever Respiratory: no cough Cardiovascular: no chest pain Gastrointestinal: no abdominal pain Genitourinary (Female): no urinary urgency Psychiatric: + behavioral changes, + irritability, + confusion and + slaughter llucinations Physical Exam Vital Signs Vital Signs - 24 hr 02/10/22 22:59 02/10/22 23:42 02/11/22 01:00 Temperature 37.2 C Temperature Source Oral Pulse Rate 89 76 Pulse Rate [Apical] 83 Respiratory Rate 15 20 18 Respiratory Effort / Characteristics Non-Labored Spontaneous Non-Labored Spontaneous Respiratory Depth Normal Normal Respiratory Pattern Regular Blood Pressure 143/88 H Blood Pressure [Right Arm] 143/87 H Blood Pressure Mean 106 Blood Pressure Mean [Right Arm] 105 Blood Pressure Position Lying Blood Pressure Position [Right Arm] Semi-fowlers Pulse Oximetry 100 99 99 Oxygen Delivery Method Room Air Room Air Room Air Sepsis Recent Fever Within 48 Hours No Sepsis New/Unexplained Change in Mental Status Yes Sepsis Action Taken by Nursing No Action Required GENERAL: Patient is awake alert in no acute distress EYES: The conjunctivae are clear. The pupils are round and reactive. EARS, NOSE, MOUTH AND THROAT: The nose is without any evidence of any deformity. Mucous membranes are moist. Tongue is midline. NECK: The neck is nontender and supple RESPIRATORY: Normal respiratory effort is noted there is no evidence of wheezing rhonchi or rales CARDIOVASCULAR: Regular rate and rhythm noted there no murmurs rubs or gallops normal S1 normal S2. GASTROINTESTINAL: The abdomen is soft. Abdomen is nontender. PELVIS: The Pelvis is stable. No tenderness to palpation is noted. BACK: No midline tenderness or or step-off noted range of motion in flexion extension as well as rotation no signs of muscle spasm noted MUSCULOSKELETAL/EXTREMITIES: There is no evidence of gross deformity full range of motion is noted in the hips and shoulders. SKIN: There is no obvious evidence of any rash. There are no petechiae, pallor or cyanosis noted. NEUROLOGIC: Patient is awake alert and oriented x1 Course Reevaluation(s) Reevaluation #1: Patient is resting in no distress, patient was started on IV Rocephin. The case was discussed with the [facility] hospitalist for admission Time: 00:56 Administered Medications Discontinued Medications Ceftriaxone Sodium (Rocephin) 1,000 mg in 50 mls @ 100 mls/hr IV NOW STA Stop: 02/11/22 00:57 Last Infusion: 02/11/22 01:16 Dose: 0 mls/hr Documented By: Admin: 02/11/22 00:46 Dose: 100 mls/hr Documented By: QGV Acetaminophen (Ofirmev) 1,000 mg in 100 mls @ 400 mls/hr IV NOW STA Stop: 02/11/22 01:14 Last Infusion: 02/11/22 01:39 Dose: 0 mls/hr Documented By: Admin: 02/11/22 01:24 Dose: 400 mls/hr Documented By: QGV Ioversol (Optiray 300 100ml) 91 ml IV ONCE ONE Stop: 02/11/22 02:28 Last Admin: 02/11/22 02:27 Dose: 91 ml Documented By: [facility] Medical Decision Making Medical Records Attestation: I reviewed the patient's medical records. Home Medications Current Medication List: was personally reviewed by me Laboratory Data Attestation: I reviewed the patient's lab results. Result diagrams: 02/10/22 23:16 02/10/22 23:16 Lab Results 02/10/22 02/10/22 02/10/22 Range/Units 23:16 23:16 23:16 WBC 7.01 (4.8-10.8) K/ul RBC 4.62 (3.93-5.22) M/uL Hgb 14.1 (12.0-16.0) g/dl Hct 41.9 (34.1-44.9) % MCV 90.7 (80.0-100.0) fL MCH 30.5 (25.0-34.0) pg MCHC 33.7 (32.0-36.0) g/dL RDW Std Deviation 46.8 H (36.4-46.3) fL RDW Coeff of Radhika 14.0 (11.5-14.5) % Plt Count 417 H (130-400) K/uL MPV 9.0 L (9.4-12.3) fL Immature Gran % (Auto) 0.3 % Neut % (Auto) 61.2 % Lymph % (Auto) 26.8 % [place] % (Auto) 8.8 % Eos % (Auto) 1.9 % Baso % (Auto) 1.0 % Neut # (Auto) 4.29 (1.4-6.5) K/uL Lymph # (Auto) 1.88 (1.2-3.4) K/uL [place] # (Auto) 0.62 (0.24-0.82) K/uL Eos # (Auto) 0.13 (0-0.50) K/uL Baso # (Auto) 0.07 (0-0.2) K/uL Immature Gran # (Auto) 0.02 (0.00-0.02) K/uL PT 12.3 H (9.0-12.0) Seconds INR 1.2 H (0.9-1.1) APTT 30.0 (21.0-31.0) Seconds PTT Ratio 1.1 Sodium 134 L (136-145) mmol/L Potassium 3.5 (3.5-5.1) mmol/L Chloride 96 L (98-107) mmol/L Carbon Dioxide 28 (21-32) mmol/L Anion Gap 10 (3-11) BUN 16 (6-23) mg/dl Creatinine 1.08 (0.6-1.2) mg/dl Est Cr Clr Drug Dosing 32.3 ml/min Est GFR ( Amer) 53.8 ml/min Est GFR (Non-Af Amer) 46.4 ml/min BUN/Creatinine Ratio 14.8 (10-20) Glucose 110 H (70-99(Fasting)) mg/dl Lactate (0.4-2.0) mmol/L Calcium 10.1 (8.5-10.1) mg/dl Magnesium 1.7 (1.7-2.4) mg/dl Total Bilirubin 1.1 H (0.2-1.0) mg/dl AST 22 (13-39) U/L ALT 14 (7-52) U/L Alkaline Phosphatase 95 (34-104) U/L Troponin I High Sens 23.0 H D (0-14) pg/ml Total Protein 7.2 (6.0-8.3) gm/dl Albumin 4.4 (3.4-5.0) gm/dl Globulin 2.8 (2.5-4.0) gm/dl Albumin/Globulin Ratio 1.6 (0.9-2) Urine Color Urine Appearance (Clear) Urine pH (4.5-7.5) Ur Specific [place] (1.000-1.030) Urine Protein (Negative) Urine Glucose (UA) (Negative) Urine Ketones (Negative) Urine Blood (Negative) Urine Nitrite (Negative) Urine Bilirubin (Negative) Urine Urobilinogen (Negative) Ur Leukocyte Esterase (Negative) Urine WBC (Auto) (0-5) /hpf Urine RBC (Auto) (0-4) /hpf U Hyaline Cast (Auto) (0-5) /lpf U Epithel Cells (Auto) (0-5) /lpf Urine Bacteria (Auto) (Negative) Granular Casts (0) /lpf SARS-CoV-2, RNA, NAAT (NEGATIVE) 02/10/22 02/10/22 02/11/22 Range/Units 23:16 23:43 00:42 WBC (4.8-10.8) K/ul RBC (3.93-5.22) M/uL Hgb (12.0-16.0) g/dl Hct (34.1-44.9) % MCV (80.0-100.0) fL MCH (25.0-34.0) pg MCHC (32.0-36.0) g/dL RDW Std Deviation (36.4-46.3) fL RDW Coeff of Radhika (11.5-14.5) % Plt Count (130-400) K/uL MPV (9.4-12.3) fL Immature Gran % (Auto) % Neut % (Auto) % Lymph % (Auto) % [place] % (Auto) % Eos % (Auto) % Baso % (Auto) % Neut # (Auto) (1.4-6.5) K/uL Lymph # (Auto) (1.2-3.4) K/uL [place] # (Auto) (0.24-0.82) K/uL Eos # (Auto) (0-0.50) K/uL Baso # (Auto) (0-0.2) K/uL Immature Gran # (Auto) (0.00-0.02) K/uL PT (9.0-12.0) Seconds INR (0.9-1.1) APTT (21.0-31.0) Seconds PTT Ratio Sodium (136-145) mmol/L Potassium (3.5-5.1) mmol/L Chloride (98-107) mmol/L Carbon Dioxide (21-32) mmol/L Anion Gap (3-11) BUN (6-23) mg/dl Creatinine (0.6-1.2) mg/dl Est Cr Clr Drug Dosing ml/min Est GFR ( Amer) ml/min Est GFR (Non-Af Amer) ml/min BUN/Creatinine Ratio (10-20) Glucose (70-99(Fasting)) mg/dl Lactate 1.2 (0.4-2.0) mmol/L Calcium (8.5-10.1) mg/dl Magnesium (1.7-2.4) mg/dl Total Bilirubin (0.2-1.0) mg/dl AST (13-39) U/L ALT (7-52) U/L Alkaline Phosphatase (34-104) U/L Troponin I High Sens (0-14) pg/ml Total Protein (6.0-8.3) gm/dl Albumin (3.4-5.0) gm/dl Globulin (2.5-4.0) gm/dl Albumin/Globulin Ratio (0.9-2) Urine Color Dark Yellow Urine Appearance Clear (Clear) Urine pH 5.5 (4.5-7.5) Ur Specific [place] 1.018 (1.000-1.030) Urine Protein Trace H (Negative) Urine Glucose (UA) Negative (Negative) Urine Ketones 1+ H (Negative) Urine Blood 1+ H (Negative) Urine Nitrite Negative (Negative) Urine Bilirubin Negative (Negative) Urine Urobilinogen Negative (Negative) Ur Leukocyte Esterase Trace H (Negative) Urine WBC (Auto) 1-5 (0-5) /hpf Urine RBC (Auto) 5-10 H (0-4) /hpf U Hyaline Cast (Auto) >30 H (0-5) /lpf U Epithel Cells (Auto) 10-20 H (0-5) /lpf Urine Bacteria (Auto) 1+ H (Negative) Granular Casts 1-5 H (0) /lpf SARS-CoV-2, RNA, NAAT NEGATIVE (NEGATIVE) Imaging Data Attestation: I personally reviewed and interpreted this imaging study as fol lows: Radiologist's Impression: CT brain per radiology negative acute ECG Data Attestation: I personally reviewed and interpreted this ECG as follows: Additional Comments: EKG interpreted by me normal sinus rhythm rate of [address]-T change globally. Normal axis normal intervals;poor baseline MDM Narrative Medical decision making differential diagnosis includes urinary tract infection, sepsis, pneumonia, dehydration, electrolyte abnormality. Plan is to check sepsis protocol, CT of the brain. This patient was evaluated for confusion and hallucinations. Patient has a nonspecific EKG with an elevated troponin. In prior lab work the troponin had been normal. Patient also has a urinary tract infection. This may be the cause of the hallucinations. The patient was started on IV Rocephin. The case was discussed with the hospitalist for admission for confusion, hallucinations, UTI, elevated troponin. Impression & Plan UTI (urinary tract infection), Elevated troponin, Acute confusion Discharge Plan Visit Data Chief Complaint: Altered Mental Status Stated Complaint: altered mental status ED Provider: Gatito Bray Discharge Problem: UTI (urinary tract infection), Elevated troponin, Acute confusion Patient Disposition: Admitted As Inpatient Discharge Instructions Interventions: ED Discharge Assessment Last Done: 02/11/22 01:47
[2022-02-10 23:31] LABS: Basophils # (auto) 0.07 K/uL (0-0.2); Eosinophils # (auto) 0.13 K/uL (0-0.50); Eosinophils % (auto) 1.9 %; Hematocrit (blood only) 41.9 % (34.1-44.9); Hemoglobin 14.1 g/dl (12.0-16.0); Immature Granulocytes # (auto) 0.02 K/uL (0.00-0.02); Immature Granulocytes % (auto) 0.3 %; Lymphocytes # (auto) 1.88 K/uL (1.2-3.4); Lymphocytes % (auto) 26.8 %; Mean Corpuscular Hemoglobin 30.5 pg (25.0-34.0); Mean Corpuscular Hgb Conc 33.7 g/dL (32.0-36.0); Mean Corpuscular Volume 90.7 fL (80.0-100.0); Monocytes # (auto) 0.62 K/uL (0.24-0.82); Monocytes % (auto) 8.8 %; Neutrophils # (auto) 4.29 K/uL (1.4-6.5); Neutrophils % (auto) 61.2 %; Platelet Count 417 K/uL (130-400); RDW Standard Deviation 46.8 fL (36.4-46.3); Red Blood Count 4.62 M/uL (3.93-5.22); White Blood Count 7.01 K/ul (4.8-10.8)
[2022-02-10 23:54] LABS: Albumin Globulin Ratio 1.6 (0.9-2); Albumin Level 4.4 gm/dl (3.4-5.0); BUN Creatinine Ratio 14.8 (10-20); Bilirubin,Total 1.1 mg/dl (0.2-1.0); Calcium 10.1 mg/dl (8.5-10.1); Creatinine Clr Calc Pharmacy 32.3 ml/min; Est GFR (African American) 53.8 ml/min; Est GFR (Non-African American) 46.4 ml/min; Globulin 2.8 gm/dl (2.5-4.0); Magnesium 1.7 mg/dl (1.7-2.4); Potassium 3.5 mmol/L (3.5-5.1); Total Protein 7.2 gm/dl (6.0-8.3)
[2022-02-10 23:55] LABS: INR 1.2 (0.9-1.1); Partial Thromboplastin Ratio 1.1; Prothrombin Time 12.3 Seconds (9.0-12.0)
[2022-02-11] LABS: Appearance Urine Clear (Clear); Bilirubin Urine Negative (Negative); Blood Urine 1+ (Negative); Color Urine Dark Yellow; Glucose Urine UA Negative (Negative); Ketones Urine 1+ (Negative); Leukocyte Esterase Urine Trace (Negative); Nitrite Urine Negative (Negative); Protein Urine Trace (Negative); Specific Gravity Urine 1.018 (1.000-1.030); Urobilinogen Urine Negative (Negative); pH Urine 5.5 (4.5-7.5)
[2022-02-11 00:22] LABS: Cast Urine Automated >30 /lpf (0-5)
[2022-02-11 00:23] LABS: Bacteria Urine Automated 1+ (Negative)
[2022-02-11] MEDS ORDERED: cefTRIAXone SODIUM 1,000 MG/50 ML BAG IV STA (00:28)
[2022-02-11] MEDS ORDERED: ACETAMINOPHEN 1,000 MG/100 ML VIAL IV STA (01:00)
--- NOTE | 2022-02-11 01:28 | History & Physical Report ---
Date of Service February 11, 2022 Assessment & Plan (1) Back pain: Plan: 87-year-old female presenting with severe right-sided back pain persistent for the last 2 weeks. Patient was seen in the ER on 01/[address] which revealed compression fractures in the lumbar spine. Daughter reports the patient has had persistent progressive pain since then. Acute delirium possibly secondary to pain Tylenol 650 p.o. 3 times daily Morphine 0.5 mg IV every 6 hours as needed Lidoderm patch Heating pad as needed Check CT abdomen and pelvis with IV contrast (2) Compression fracture: Plan: Possible etiology of patient's back pain Tylenol, morphine, topical therapies as above Continue calcitonin spray (3) Elevated troponin: Plan: Patient denies chest pain. EKG with some STT wave changes. Troponin is mildly elevated at 23 Telemetry monitoring Trend troponin (4) Hypothyroidism: Plan: Chronic. Patient had elevated TSH at 16.58 in October 2021 Continue Synthroid Check TSH with a.m. labs (5) Hypertension: Plan: Chronic. Elevated in the setting of acute pain Pain control Continue amlodipine 2.5 mg p.o. daily (6) COPD (chronic obstructive pulmonary disease): Plan: Chronic. Patient denies cough, shortness of breath or wheeze Continue fluticasonevilanterol Continue umeclidinium (7) Depression: Plan: Chronic controlled on medications Continue Celexa. Patient is on 30 mg daily which is higher than recommended d kaw for elderly patients We will continue Celexa 20 mg daily History of Present Illness Chief Complaint: confusion back pain Primary Care Provider: [facility], [facility] Jennifer Rodriguez is an 87yo female with HTN, HLP, Hypothyroidism, COPD, and s/p AAA repair. Seen in the ER on 03/31/22 with severe right sided back pain. Found to have compression fractures of lumbar spine at L2 and L4. She returned to [facility]. Has not been taking any new medications of late with exception of Calcitonin nasal spray. Daughter states that she has not been doing well since coming to the ER on 01/29/22. She has continued right sided back pain. Severe, 03/13. Patient has been screaming out in pain. Also with increased confusion, possible hallucinations - seeing children and doors where there are none. Reports that the pain is mostly in right lower back with radiation to the left side as well as right flank to lower abdomen. She is constipated as well - uncertain when her last BM was. Has not been eating or drinking well. Has some nausea. Denies fever, chills, cough, SOB, vomiting, diarrhea. Patient is a poor historian but is able to answer questions and participate in exam. Daughter is at bedside and assists with history. ER Course: Ceftriaxone, Tylenol Allergies Allergy/AdvReac Type Severity Reaction Status Date / Time bupropion [From Wellbutrin] Allergy Mild Unknown Unverified 02/11/22 00:15 hydrochlorothiazide Allergy Mild Unknown Unverified 02/11/22 00:15 [From Avalide] irbesartan [From Avalide] Allergy Mild Unknown Unverified 02/11/22 00:15 roflumilast [From Daliresp] Allergy Mild Unknown Unverified 02/11/22 00:15 denosumab [From Prolia] Allergy Unknown Unknown Verified 02/11/22 00:15 tramadol Allergy Unknown Unknown Verified 02/11/22 00:16 Sulfa (Sulfonamide AdvReac Intermediate Hives Unverified 01/29/22 09:24 Antibiotics) fentanyl [From Duragesic] AdvReac Mild Hallucinati Verified 01/29/22 09:24 ng ciprofloxacin [From Cipro] AdvReac Unknown Unknown Unverified 02/11/22 00:15 NSAIDS (Non-Steroidal AdvReac Unknown Unknown Unverified 02/11/22 00:15 Anti-Inflamma Home Medications Medication Instructions Recorded Confirmed Type citalopram 10 mg tablet (Celexa) 10 mg PO DAILY 05/16/21 02/11/22 History fluticasone furoate 200 1 inh inhalation DAILY 05/16/21 02/11/22 History mcg-vilanterol 25 mcg/dose inhalation powder (Breo Ellipta) umeclidinium 62.5 mcg/actuation 1 inh inhalation DAILY #3 ea 07/22/21 02/11/22 Rx blister powder for inhalation (Incruse Ellipta) acetaminophen 325 mg tablet 325 - 650 mg PO Q4 PRN Fever Or 10/23/21 02/11/22 History (Tylenol) Pain citalopram 20 mg tablet 20 mg PO DAILY 10/23/21 02/11/22 History methyl salicylate-menthol topical 1 applic topical QID PRN Pain 10/23/21 02/11/22 History cream multivitamin with minerals-folic 2 tab PO QAM 10/23/21 02/11/22 History acid 200 mcg chewable tablet (Women's Multivitamin Gummies) polyethylene glycol 3350 17 17 g PO BID PRN Constipation 10/23/21 02/11/22 History gram/dose oral powder (Miralax) levothyroxine 75 mcg tablet 75 mcg PO DAILYBB #30 tabs 10/26/21 02/11/22 Rx (Synthroid) sucralfate 1 gram tablet (Carafate) 1 g PO ACHS #60 tabs 10/26/21 02/11/22 Rx Lidocain Pain Relief Patch 1 patch topical Q8 PRN Pain 02/11/22 02/11/22 History amlodipine 2.5 mg tablet 2.5 mg PO DAILY 02/11/22 02/11/22 History calcitonin (salmon) 200 1 spray intranasal (ALT) Q OTHER 02/11/22 02/11/22 History unit/actuation nasal spray DAY loperamide 2 mg tablet 2 mg PO UD PRN Adequate Ventilation 02/11/22 02/11/22 History (Anti-Diarrheal (loperamide)) Past Med/Surg History Medical History Anemia Anxiety Aortic stenosis Closed sacral fracture COPD (chronic obstructive pulmonary disease) Dehydration Delirium Dementia Depression Duodenal bulb ulcer Gallstones GI bleed Hyperlipidemia LDL goal <70 Hypertension Hyponatremia Hypothyroidism Left hip pain Murmur, cardiac Osteopenia Peptic ulcer disease Pneumonia Pseudomonas urinary tract infection Urinary retention Surgical History S/P AAA (abdominal aortic aneurysm) repair Family History Father , in his 70s of an [place]. Hypertension Myocardial infarction Mother , in her 70s after a fall No problems noted. 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 Feels Safe at Home: Yes Assistive Devices: Walker Review of Systems Review of Systems: All systems reviewed & are unremarkable except as noted in HPI & below Physical Exam Physical Exam: General: patient resting comfortably, NAD, non-toxic in appearance Skin: warm, dry, intact, no rashes or lesions HEENT: NC/AT, PERRL, EOMI, anicteric sclera, conjunctiva without injection, external ear normal to inspection and nontender, nares patent, moist mucus membranes, dentition intact, no oropharyngeal lesions, neck supple, trachea midline, no LAD, no thyromegaly, no JVD Heart: +S1/S2, regular, 3/6 blowing murmur at apex Lungs: equal air entry bilaterally, no rales/rhonchi/wheezes Abd: +BS, soft, NT/ND, no masses/organomegaly/ascites Ext: warm, 2+ pulses in UE/LE bilaterally, no clubbing/cyanosis or edema Neuro: nonfocal, intact, no facial droop, moving all extremities on command with equal strength 5/5 Tenderness at right flank and lower abdomen, no rebound/guarding/peritoneal signs Results & Data Results & Data ([facility]) Vital Signs (Past 12 Hours) Vital Signs Temp Pulse Pulse Resp BP BP Pulse Ox 02/10/22 23:42 83 20 143/87 H 99 02/10/22 22:59 37.2 C 89 15 143/88 H 100 O2 Del Method 02/10/22 23:42 Room Air 02/10/22 22:59 Room Air Laboratory Results Laboratory Results WBC 7.01 K/ul (4.8-10.8) 02/10/22 23:16 RBC 4.62 M/uL (3.93-5.22) 02/10/22 23:16 Hgb 14.1 g/dl (12.0-16.0) 02/10/22 23:16 Hct 41.9 % (34.1-44.9) 02/10/22 23:16 MCV 90.7 fL (80.0-100.0) 02/10/22 23:16 MCH 30.5 pg (25.0-34.0) 02/10/22 23:16 MCHC 33.7 g/dL (32.0-36.0) 02/10/22 23:16 RDW Std Deviation 46.8 fL (36.4-46.3) H 02/10/22 23:16 RDW Coeff of Radhika 14.0 % (11.5-14.5) 02/10/22 23:16 Plt Count 417 K/uL (130-400) H 02/10/22 23:16 MPV 9.0 fL (9.4-12.3) L 02/10/22 23:16 Immature Gran % (Auto) 0.3 % 02/10/22 23:16 Neut % (Auto) 61.2 % 02/10/22 23:16 Lymph % (Auto) 26.8 % 02/10/22 23:16 Rogers % (Auto) 8.8 % 02/10/22 23:16 Eos % (Auto) 1.9 % 02/10/22 23:16 Baso % (Auto) 1.0 % 02/10/22 23:16 Neut # (Auto) 4.29 K/uL (1.4-6.5) 02/10/22 23:16 Lymph # (Auto) 1.88 K/uL (1.2-3.4) 02/10/22 23:16 Rogers # (Auto) 0.62 K/uL (0.24-0.82) 02/10/22 23:16 Eos # (Auto) 0.13 K/uL (0-0.50) 02/10/22 23:16 Baso # (Auto) 0.07 K/uL (0-0.2) 02/10/22 23:16 Immature Gran # (Auto) 0.02 K/uL (0.00-0.02) 02/10/22 23:16 PT 12.3 Seconds (9.0-12.0) H 02/10/22 23:16 INR 1.2 (0.9-1.1) H 02/10/22 23:16 APTT 30.0 Seconds (21.0-31.0) 02/10/22 23:16 PTT Ratio 1.1 02/10/22 23:16 Sodium 134 mmol/L (136-145) L 02/10/22 23:16 Potassium 3.5 mmol/L (3.5-5.1) 02/10/22 23:16 Chloride 96 mmol/L (98-107) L 02/10/22 23:16 Carbon Dioxide 28 mmol/L (21-32) 02/10/22 23:16 Anion Gap 10 (3-11) 02/10/22 23:16 BUN 16 mg/dl (6-23) 02/10/22 23:16 Creatinine 1.08 mg/dl (0.6-1.2) 02/10/22 23:16 Est Cr Clr Drug Dosing 32.3 ml/min 02/10/22 23:16 Est GFR ( Amer) 53.8 ml/min 02/10/22 23:16 Est GFR (Non-Af Amer) 46.4 ml/min 02/10/22 23:16 BUN/Creatinine Ratio 14.8 (10-20) 02/10/22 23:16 Glucose 110 mg/dl (70-99(Fasting)) H 02/10/22 23:16 Lactate 1.2 mmol/L (0.4-2.0) 02/10/22 23:16 Calcium 10.1 mg/dl (8.5-10.1) 02/10/22 23:16 Magnesium 1.7 mg/dl (1.7-2.4) 02/10/22 23:16 Total Bilirubin 1.1 mg/dl (0.2-1.0) H 02/10/22 23:16 AST 22 U/L (13-39) 02/10/22 23:16 ALT 14 U/L (7-52) 02/10/22 23:16 Alkaline Phosphatase 95 U/L (34-104) 02/10/22 23:16 Troponin I High Sens 23.0 pg/ml (0-14) H D 02/10/22 23:16 Total Protein 7.2 gm/dl (6.0-8.3) 02/10/22 23:16 Albumin 4.4 gm/dl (3.4-5.0) 02/10/22 23:16 Globulin 2.8 gm/dl (2.5-4.0) 02/10/22 23:16 Albumin/Globulin Ratio 1.6 (0.9-2) 02/10/22 23:16 Urine Color Dark Yellow 02/10/22 23:43 Urine Appearance Clear (Clear) 02/10/22 23:43 Urine pH 5.5 (4.5-7.5) 02/10/22 23:43 Ur Specific Orrum 1.018 (1.000-1.030) 02/10/22 23:43 Urine Protein Trace (Negative) H 02/10/22 23:43 Urine Glucose (UA) Negative (Negative) 02/10/22 23:43 Urine Ketones 1+ (Negative) H 02/10/22 23:43 Urine Blood 1+ (Negative) H 02/10/22 23:43 Urine Nitrite Negative (Negative) 02/10/22 23:43 Urine Bilirubin Negative (Negative) 02/10/22 23:43 Urine Urobilinogen Negative (Negative) 02/10/22 23:43 Ur Leukocyte Esterase Trace (Negative) H 02/10/22 23:43 Urine WBC (Auto) 1-5 /hpf (0-5) 02/10/22 23:43 Urine RBC (Auto) 5-10 /hpf (0-4) H 02/10/22 23:43 U Hyaline Cast (Auto) >30 /lpf (0-5) H 02/10/22 23:43 U Epithel Cells (Auto) 10-20 /lpf (0-5) H 02/10/22 23:43 Urine Bacteria (Auto) 1+ (Negative) H 02/10/22 23:43 Granular Casts 1-5 /lpf (0) H 02/10/22 23:43 SARS-CoV-2, RNA, NAAT NEGATIVE (NEGATIVE) 02/11/22 00:42 PG Care Time/CCT Total # of Minutes Spent Total Time Spent with Patient: Total time spent is greater than 50% in coordination of care (as documented) at patient's floor/unit and/or counseling patient: Coding Level of Care Code 29578 Initial Inpt Care Lvl 3 Diagnoses Back pain M54.42; G89.29 Back pain laterality: left Back pain location: low back pain Chronicity: chronic Sciatica laterality: sciatica of left side Sciatica presence: with sciatica Compression fracture Elevated troponin R77.8 Hypothyroidism E03.9 Hypertension I10 COPD (chronic obstructive pulmonary disease) J44.9 Depression F32.9 Depression Type: unspecified (1) Back pain Back pain laterality: left Back pain location: low back pain Chronicity: chronic Sciatica laterality: sciatica of left side Sciatica presence: with sciatica Qualified Code(s): M54.42 - Lumbago with sciatica, left side; G89.29 - Other chronic pain (2) Depression Depression Type: unspecified Qualified Code(s): F32.9 - Major depressive diso rder, single episode, unspecified
[2022-02-11] MEDS ORDERED: OPTIRAY 300 100mL IV ONE (02:27)
[2022-02-11] MEDS ORDERED: LACTATED RINGER'S 1,000 ML IV SCH (02:48)
[2022-02-11] MEDS ORDERED: POLYETHYLENE (MIRALAX) 17 GM PACK PO PRN (02:48)
[2022-02-11] MEDS ORDERED: bisacodyL 10 MG SUPP PR PRN (02:48)
[2022-02-11 03:49] LABS: Thyroid Stimulating Hormone 36.409 uIu/ml (0.300-4.500)
[2022-02-11 04:22] LABS: T4 Free Thyroxine 0.93 ng/dl (0.61-1.60)
[2022-02-11] MEDS: LEVOTHYROXINE SODIUM 75 MCG TABLET PO SCH (05:41)
[2022-02-11] MEDS: FLUTICASONE/VILANTEROL 200/25MCG 14 PUFFS/INHALER INH SCH (08:01)
[2022-02-11] MEDS: SUCRALFATE 1 GM TAB PO SCH ×4 (08:01→20:33)
[2022-02-11] MEDS: LIDOCAINE 5% 1 PATCH TD SCH (08:01)
[2022-02-11] MEDS: UMECLIDINIUM BROMIDE 62.5MCG/BLISTER 7 PUFFS/INHALER INH SCH (08:01)
[2022-02-11] MEDS: SENNA 8.6 MG TAB PO SCH (08:02)
[2022-02-11] MEDS: amLODIPine BESYLATE 5 MG TAB PO SCH (08:02)
[2022-02-11] MEDS: ACETAMINOPHEN 325 MG TAB PO SCH ×3 (08:02→20:34)
[2022-02-11] MEDS: CITALOPRAM 20 MG TAB PO SCH (08:02)
[2022-02-11] MEDS: CALCITONIN SALMON NA 200 IU/AC 3.7 ML BTL SCH (08:03)
--- NOTE | 2022-02-11 08:03 | CT Scan Report ---
CT OF THE ABDOMEN AND PELVIS WITH CONTRAST CLINICAL HISTORY: Right flank pain. COMPARISON STUDY: Right upper quadrant ultrasound October 24, 2021. CT of the abdomen and pelvis December 02, 2021. Lumbar spine CT January 29, 2022. TECHNIQUE: Following IV administration of 91 mL of Optiray, axial images of the abdomen and pelvis we re obtained from the lung bases to the proximal femurs. Images were reviewed in the axial, sagittal, and coronal planes. IV contrast was administered without complication. Automated exposure control wa s utilized for the study. A dose lowering technique was utilized adhering to the principles of ALARA . CT DOSE: 285.98 mGy.cm FINDINGS: A 4 mm right middle lobe nodule is probably benign. No pneumatosis, free air or portal veno us gas is present. Liver, spleen, adrenal glands, kidneys and pancreas are unremarkable. There is a g allstone within the gallbladder. No evidence for acute cholecystitis. There is no biliary or pancreat ic ductal dilatation. A 5 x 4.9 cm abdominal aortic aneurysm is similar to CT of December 02, 2021. There is extensive plaque. No evidence for rupture. There is no evidence for a bowel obstruction. Sigmoid d iverticulosis is noted without evidence for acute diverticulitis. There is no lymphadenopathy. Multip le lumbar spine compression fractures are similar to the lumbar spine CT of January 29, 2022. No acute fracture is identified. There is no lymphadenopathy. No fluid collection is suggest an abscess. Imag es of the pelvis are degraded by streak artifact from a left hip arthroplasty. IMPRESSION: 1. No acute process within the abdomen or pelvis. 2. No change in a 5 cm abdominal aortic aneurysm since prior CT. No rupture. 3. Colonic diverticulosis. No evidence for acute diverticulitis. No bowel obstruction. 2. No change in numerous lumbar spine compression fractures since CT of the January 29, 2022. ACT 112: Negative or not required by law. Electronically signed by: Chandler Joshua M.D. 02/11/2022 8:01 AM
--- NOTE | 2022-02-11 08:12 | XRay Report ---
XR chest 1V portable CLINICAL HISTORY: SEPSIS COMPARISON STUDY: Chest CT May 17, 2021. Chest radiograph October 23, 2021. FINDINGS: Mild elevation the right hemidiaphragm is unchanged. Lungs are clear. There is no pneumotho rax or pleural effusion. Cardiac size is normal. Mediastinal contours are normal. There is no evidenc e for pulmonary edema. Several calcified pulmonary nodules are unchanged. Old proximal left humeral f racture is present. Linear right upper lung density is unchanged since chest radiograph of August 22, 2018. This favors scarring. IMPRESSION: No acute cardiopulmonary findings. No change in appearance of the chest. ACT 112: Negative or not required by law. Electronically signed by: Chandler Joshua M.D. 02/11/2022 8:11 AM
--- NOTE | 2022-02-11 08:18 | CT Scan Report ---
CT head/brain wo con CLINICAL HISTORY: 87 years-old Female with ams, hallucinations. Acutely altered mental status TECHNIQUE: Multiple axial CT images of the head were obtained without contrast. A dose lowering tech nique was utilized adhering to the principles of ALARA. CT DOSE: 853.38 mGy.cm COMPARISON: Head CT 05/21/2019 FINDINGS: No acute intracranial hemorrhage, midline shift, intracranial mass, hydrocephalus, territorial ischem ia or abnormal extra-axial collection. Age-related involutional changes. White matter hypodensities s uggest chronic microvascular ischemic disease. Cerebral vascular calcifications. Subcentimeter chroni c lacunar infarct within the inferior left cerebellar hemisphere. The calvarium is intact. 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 The paranasal sinuses, mastoid air cell s, and middle ear cavities are clear. Prior bilateral lens repair. Incomplete bony fusion involves th e posterior arch of C1. IMPRESSION: No acute intracranial abnormality. ACT 112: Negative or not required by law. The above report was generated using voice recognition software. It may contain grammatical, syntax o r spelling errors. Electronically signed by: Pablo Major M.D. 02/11/2022 8:16 AM
--- NOTE | 2022-02-11 10:55 | Electrocardiogram Report ---
Test Reason : Blood Pressure : / mmHG Vent. Rate : 074 BPM Atrial Rate : 074 BPM P-R Int : 140 ms QRS Dur : 066 ms QT Int : 472 ms P-R-T Axes : 029 -22 205 degrees QTc Int : 523 ms Poor data quality, interpretation may be adversely affected Normal sinus rhythm Abnormal ECG When compared with ECG of 02-DEC-2021 13:10, Premature atrial complexes are no longer Present ST and T wave inversion now evident in Anterior leads QT has lengthened Confirmed by Kedar Oviedo ([id number]) on 02/11/2022 10:54:45 AM Referred By: Ramone Mattson Jensen Confirmed By:Kedar Oviedo
--- NOTE | 2022-02-11 15:09 | Communication Note ---
Date of Service: February 11, 2022 Chart reviewed. seen this am revisited while daughter at bedside. spoke to nurse - in significant distress when moving. daughter reported worsening dementia since covid. was in a lot of pain last night at [facility]. daughter has been looking into palliative care. was confused last night. get confused with uti. this am - comfortable when not moving. o/e - vitals 36.7 C, 79, 16, 162/73 H, 96 RA General - confused but comfortable in bed. heart - regular. lung - no resp distress abd - soft neuro - oriented to self. ? Delirium - likely from pain and worsening dementia. given rocephin in Ed. don't think infection as source. follow. Intractable back pain from recent vertebral compression # - on iv 0.5mgs morphi ne q6hrs. hasn't been able to tolerate oral meds in past. continue lidocaine patch and tylenol. hasn't been able to get spine brace. will look into arranging it while getting pain mx Elevated trop hs - minimal rise - now downtrending. likely demand ischemia. d/c trop trends Hypothyroid - unclear of compliance. will continue current dose for now.
[2022-02-11] MEDS: MoRPHine SULFATE 2 MG/ML CARP IV PRN (20:42)
[2022-02-11] MEDS: cefTRIAXone SODIUM 1,000 MG in DEXTROSE 5% 50 ML IV SCH (22:59)
[2022-02-11] MEDS: MELATONIN 3 MG TAB PO PRN (22:59)
[2022-02-12] MEDS: SUCRALFATE 1 GM TAB PO SCH ×4 (06:31→21:51)
[2022-02-12] MEDS: LEVOTHYROXINE SODIUM 75 MCG TABLET PO SCH (06:31)
[2022-02-12 06:59] LABS: Hematocrit (blood only) 40.7 % (34.1-44.9); Hemoglobin 13.5 g/dl (12.0-16.0); Mean Corpuscular Hemoglobin 30.5 pg (25.0-34.0); Mean Corpuscular Hgb Conc 33.2 g/dL (32.0-36.0); Mean Corpuscular Volume 92.1 fL (80.0-100.0); Mean Platelet Volume 8.9 fL (9.4-12.3); Platelet Count 414 K/uL (130-400); RDW Standard Deviation 47.9 fL (36.4-46.3); Red Blood Count 4.42 M/uL (3.93-5.22); White Blood Count 5.76 K/ul (4.8-10.8)
[2022-02-12] MEDS: ACETAMINOPHEN 325 MG TAB PO SCH ×3 (07:31→21:51)
[2022-02-12] MEDS: amLODIPine BESYLATE 5 MG TAB PO SCH (07:33)
[2022-02-12] MEDS: CITALOPRAM 20 MG TAB PO SCH (07:34)
[2022-02-12] MEDS: SENNA 8.6 MG TAB PO SCH (07:34)
[2022-02-12] MEDS: LIDOCAINE 5% 1 PATCH TD SCH (07:35)
[2022-02-12] MEDS: UMECLIDINIUM BROMIDE 62.5MCG/BLISTER 7 PUFFS/INHALER INH SCH (07:37)
[2022-02-12] MEDS: FLUTICASONE/VILANTEROL 200/25MCG 14 PUFFS/INHALER INH SCH (07:37)
[2022-02-12 07:41] LABS: Calcium 9.8 mg/dl (8.5-10.1); Creatinine Clr Calc Pharmacy 50.5 ml/min; Est GFR (African American) 91.4 ml/min; Est GFR (Non-African American) 78.8 ml/min; Potassium 3.1 mmol/L (3.5-5.1)
[2022-02-12] MEDS ORDERED: POTASSIUM CHLORIDE CRTAB 20 MEQ TABCR PO STA (13:55)
--- NOTE | 2022-02-12 13:58 | Hospitalist Progress Note ---
Date of Service February 12, 2022 Assessment & Plan (1) Delirium: (2) Intractable pain: (3) Compression fracture: (4) Hypothyroidism: (5) Hypertension: (6) Constipation: Plan 87-year-old female presenting with severe right-sided back pain persistent for the last 2 weeks. Patient was seen in the ER on 01/[address] which revealed compression fractures in the lumbar spine. Daughter reports the patient has had persistent progressive pain since then. Acute delirium possibly secondary to pain, less likely uti CT abdomen and pelvis with IV contrast - no acute pathology. Able to walk to restroom on her own today - with underlying severe dementia. UTI Received rocephin in ED. Per daughter - patient gets confused with uti. - urine cx pending - continue rocephin for one more dose and d/c in am. Intractable back pain from recent vertebral compression # - on iv 0.5mgs morphine q6hrs prn. hasn't been able to tolerate oral narcotics in past. continue lidocaine patch and tylenol. - hasn't been able to get spine brace. will look into arranging it while getting pain mx - calcitonin spray Heating pad as needed Hypok - replace Elevated trop hs - minimal rise - downtrended. likely demand ischemia. d/c trop trends Hypothyroid - . Recheck TSH 36. unclear of compliance. will continue current dose for now. Hypertension: Chronic. Elevated in the setting of acute pain Pain control Continue amlodipine 2.5 mg p.o. daily COPD (chronic obstructive pulmonary disease): Chronic. no cough, shortness of breath or wheeze Continue fluticasonevilanterol Continue umeclidinium Depression: Chronic controlled on medications On celexa 30 mg daily which is higher than recommended dosage for elderly patients We will continue Celexa 20 mg daily Constipation - on bowel regimen at home. No BM here. follow. Meghanx. DNR PT/OT. Lives at [facility] discussed with daughter regarding palliative care - she is already working on it as outpatient. case management to further help explore different options. Admission and Anticipated Discharge Date Admission Date: February 11, 2022 Subjective seen this am. denied any concern. reviewed with nursing - no concerns reported. had walked upto the bathroom without any assistance. no bowel movement. Physical Exam Constitutional: WD/WN, vitals as above Respiratory: normal respiratory effort, lungs clear to auscultation Cardiovascular: RRR, no murmur, no edema Psychiatric: Alert, awake. oriented to self Results & Data Results & Data ([facility]) Vital Signs (Past 12 Hours) Vital Signs Temp Pulse Pulse Resp BP Pulse Ox O2 Del Method 02/12/22 12:23 36.6 C 81 18 158/76 H 96 Room Air 02/12/22 07:18 75 02/12/22 06:33 36.5 C 85 16 126/72 97 Room Air 02/12/22 03:55 36.1 C L 77 16 207/96 H 97 Room Air (1) Constipation Constipation type: unspecified constipation type Qualified Code(s): K59.00 - Constipation, unspecified
[2022-02-12] MEDS ORDERED: SENNA 8.6 MG TAB PO ONE (15:30)
[2022-02-12] MEDS: ENOXAPARIN INJ 30 MG/0.3 ML SYR SQ SCH (17:29)
[2022-02-12] MEDS ORDERED: METOPROLOL TARTRATE 1 MG/ML VIAL IV STA (23:17)
[2022-02-12] MEDS: cefTRIAXone SODIUM 1,000 MG in DEXTROSE 5% 50 ML IV SCH (23:54)
[2022-02-13] MEDS: MELATONIN 3 MG TAB PO PRN (02:56)
[2022-02-13] MEDS: LEVOTHYROXINE SODIUM 75 MCG TABLET PO SCH (05:37)
[2022-02-13] MEDS: SENNA 8.6 MG TAB PO SCH (08:19)
[2022-02-13] MEDS: SUCRALFATE 1 GM TAB PO SCH ×4 (08:19→23:44)
[2022-02-13] MEDS: LIDOCAINE 5% 1 PATCH TD SCH (08:19)
[2022-02-13] MEDS: CITALOPRAM 20 MG TAB PO SCH (08:19)
[2022-02-13] MEDS: UMECLIDINIUM BROMIDE 62.5MCG/BLISTER 7 PUFFS/INHALER INH SCH (08:19)
[2022-02-13] MEDS: CALCITONIN SALMON NA 200 IU/AC 3.7 ML BTL SCH (08:20)
[2022-02-13] MEDS: ACETAMINOPHEN 325 MG TAB PO SCH (08:20)
[2022-02-13] MEDS: FLUTICASONE/VILANTEROL 200/25MCG 14 PUFFS/INHALER INH SCH (08:20)
[2022-02-13] MEDS: MoRPHine SULFATE 2 MG/ML CARP IV PRN (08:21)
[2022-02-13] MEDS: amLODIPine BESYLATE 5 MG TAB PO SCH (08:22)
--- NOTE | 2022-02-13 10:07 | Hospitalist Progress Note ---
Date of Service February 13, 2022 Assessment & Plan (1) Delirium: (2) Intractable pain: (3) Compression fracture: (4) Hypothyroidism: (5) Hypertension: (6) Constipation: Plan 87-year-old female presenting with severe right-sided back pain persistent for the last 2 weeks most likely attributed to acute vs subacute compression fractures per 01/29/22 CT lumbar spine. Lumbar compression fractures Compression fracture findings from 01/29/22 CT lumbar spine: 1. Subtle concavity of the superior endplate of L2 with minimal loss of vertebral body height. This is new since CT of December 02, 2021 and represents an acute to subacute mild compression fracture. 2. Interval increase in L4 vertebral body height loss since prior exam. This represents a subacute compression fracture. 3. Old L1 and L3 compression fractures. - pain control w/ lidocaine patch, nasal calcitonin, scheduled Tylenol (increased from 650mg TID to 1000mg TID), and morphine 0.5mg q6h prn. given adverse reactions (confusion) to oxycodone and tramadol, consider transition to PO morphine - consulting ortho spine for evaluation/recs - orthotics; LSO brace (not yet obtained) Acute delirium on dementia - CT abdomen and pelvis with IV contrast - no acute pathology - treated empirically w/ 2 days of IV Rocephin for UA. Urine culture w/ 10k cfu of corynebacterium. discontinuing abx Hypokalemia - repleting. follow bmp Elevated high sensitivity troponin, has peaked Hypothyroidism - TSH 36. fT4 0.93 - unclear of compliance, but per daughter [facility]. will check paper chart to verify this and consider increase from 75mcg to 100mcg levothyroxine Hypertension - Chronic. Elevated in the setting of acute pain Continue amlodipine 2.5 mg p.o. daily Chronic obstructive pulmonary disease - Chronic. no cough, shortness of breath or wheeze Continue fluticasonevilanterol Continue umeclidinium Depression - Chronic controlled on medications On Celexa 30 mg daily which is higher than recommended dosage for elderly patients Reducing to Celexa 20 mg daily Constipation - miralax BID for now Diet: Regular diet, easy to chew ppx: Lovenox. code: DNR/DNI dispo: med tele ->med surg awaiting PT/OT evals. Lives at [facility]'s cell: [phone] Admission and Anticipated Discharge Date Admission Date: February 11, 2022 Supervising Physician Co-Signing Physician Notes I personally examined the patient and verified all stinson points of history and exam, discussed case, and agree with decision making with Dr Isra Steele. Since back brace is on pain seems to be better controlled. No HPI review of systems obtainable from patient. Called daughter and updated. Vitals noted, in general she is sleeping peacefully no distress. HEENT normocephalic atraumatic mucous membranes moist. Breathing unlabored no accessory muscle use good effort. Skin shows no rashes no pallor or icterus. Neuro without focal deficits. Deliriummost likely from pain from fractures. Pain better controlled, allowed to rest. Likely would benefit from return to familiar environmentPT/OT eval and treat, await input from [facility]. As far as pain control, with allergies and overall situation, continue current. DVT prophylaxisLovenox Subjective Per nursing, patient had some increased confusion overnight (e.g. wanted to get out of bed and wanted to remove equipment). Patient was seen at bedside. She had increased low back pain this AM, was tearful. Improved after dose of morphine 0.5mg IV. Patient denies other complaints. I spoke w/ daughter at bedside at noon. Review of Systems Review of Systems: All systems reviewed & are unremarkable except as noted in HPI & below Physical Exam Physical Exam: General: A&O to self only. She thought she was at [place]. NAD. Cooperative. HEENT: Atraumatic, normocephalic. EOMI Pulm: CTAB. -wheezes, -rales, -rhonchi. No respiratory distress. Cardiac: RRR, -mrg. No LE edema. Abdominal: Nontender, nondistended, soft. Results & Data Results & Data ([facility]) Vital Signs (Past 12 Hours) Vital Signs Temp Pulse Pulse Resp BP BP Pulse Ox 02/13/22 09:28 158/76 H 02/13/22 08:00 36.9 C 87 16 203/72 H 93 02/13/22 03:00 36.4 C L 71 20 194/85 H 95 02/13/22 00:38 158/92 H 02/13/22 00:24 103 H 02/12/22 23:51 87 203/82 H O2 Del Method 02/13/22 09:28 02/13/22 08:00 Room Air 02/13/22 03:00 Room Air 02/13/22 00:38 02/13/22 00:24 02/12/22 23:51 Resident Activity Tracking Resident Involvement: Resident Care Provided Care Provided: Adult Hospital Medicine (1) Constipation Constipation type: unspecified constipation type Qualified Code(s): K59.00 - Constipation, unspecified
--- NOTE | 2022-02-13 10:20 | Electrocardiogram Report ---
Test Reason : Blood Pressure : / mmHG Vent. Rate : 084 BPM Atrial Rate : 084 BPM P-R Int : 146 ms QRS Dur : 068 ms QT Int : 354 ms P-R-T Axes : 069 -18 219 degrees QTc Int : 418 ms Poor data quality, interpretation may be adversely affected Normal sinus rhythm Inferior infarct , age undetermined Abnormal ECG When compared with ECG of 10-FEB-2022 23:26, T wave inversion no longer evident in Anterior leads QT has shortened Confirmed by Shaun Perrin ([id number]) on 02/13/2022 10:20:46 AM Referred By: Ramone Mattson [place] Confirmed By:Shaun Perrin
[2022-02-13] MEDS: ENOXAPARIN INJ 30 MG/0.3 ML SYR SQ SCH (10:33)
[2022-02-13] MEDS ORDERED: POTASSIUM CHLORIDE PWD 20 MEQ PACK PO ONE (13:23)
[2022-02-13] MEDS ORDERED: ACETAMINOPHEN 500 MG TAB PO SCH (14:30)
[2022-02-13] MEDS: POLYETHYLENE (MIRALAX) 17 GM PACK PO SCH ×2 (14:53→23:36)
[2022-02-13] MEDS: ACETAMINOPHEN 1000 MG/100 ML IV IV SCH ×2 (15:02→23:50)
[2022-02-13] MEDS: ONDANSETRON INJ 2 MG/ML 2 ML VIAL IV PRN (15:03)
[2022-02-13] MEDS: POTASSIUM CHLORIDE / WTR 10 MEQ/100 ML PLCT IV SCH ×2 (15:19→16:30)
[2022-02-13] MEDS ORDERED: POTASSIUM CHLORIDE CRTAB 20 MEQ TABCR PO ONE (19:00)
--- NOTE | 2022-02-13 19:06 | Billing Data ---
Date of Service February 13, 2022 Coding Level of Care Code 04261 Subseq Hosp Care Lvl 2
[2022-02-14] MEDS: ACETAMINOPHEN 1000 MG/100 ML IV IV SCH ×3 (05:34→21:24)
[2022-02-14] MEDS: LEVOTHYROXINE SODIUM 75 MCG TABLET PO SCH (05:34)
[2022-02-14 08:07] LABS: BUN Creatinine Ratio 17.1 (10-20); Calcium 9.3 mg/dl (8.5-10.1); Creatinine Clr Calc Pharmacy 49.8 ml/min; Est GFR (African American) 90.9 ml/min; Est GFR (Non-African American) 78.5 ml/min; Magnesium 1.7 mg/dl (1.7-2.4)
--- NOTE | 2022-02-14 08:35 | Hospitalist Progress Note ---
Date of Service February 14, 2022 Assessment & Plan (1) Delirium: (2) Intractable pain: (3) Compression fracture: (4) Hypothyroidism: (5) Hypertension: (6) Constipation: Plan 87-year-old female presenting with severe right-sided back pain persistent for the last 2 weeks most likely attributed to acute vs subacute compression fractures per 01/29/22 CT lumbar spine. Lumbar compression fractures Compression fracture findings from 01/29/22 CT lumbar spine: 1. Subtle concavity of the superior endplate of L2 with minimal loss of vertebral body height. This is new since CT of December 02, 2021 and represents an acute to subacute mild compression fracture. 2. Interval increase in L4 vertebral body height loss since prior exam. This represents a subacute compression fracture. 3. Old L1 and L3 compression fractures. - pain control w/ lidocaine patch, nasal calcitonin, scheduled Tylenol (increased from 650mg TID to 1000mg TID). Holding morphine 0.5mg q6h prn because of somnolence. given adverse reactions (confusion) to oxycodone and tramadol, consider transition to PO morphine - consulting ortho spine for evaluation/recs - orthotics; LSO brace (not yet obtained) Acute delirium on dementia - CT abdomen and pelvis with IV contrast - no acute pathology - treated empirically w/ 2 days of IV Rocephin for UA. Urine culture w/ 10k cfu of corynebacterium. discontinued abx - somnolence: has not needed further morphine. 1:1 discontinued Hypokalemia - repleting. follow bmp Elevated high sensitivity troponin, has peaked Hypothyroidism - TSH 36. fT4 0.93 - unclear of compliance, but per daughter has been receiving [facility]roxine [facility]. no records in paper chart. will call [facility] to verify this and consider increase from 75mcg to 100mcg levothyroxine Hypertension - Chronic. Elevated in the setting of acute pain Continue amlodipine 2.5 mg p.o. daily Chronic obstructive pulmonary disease - Chronic. no cough, shortness of breath or wheeze Continue fluticasonevilanterol Continue umeclidinium Depression - Chronic controlled on medications On Celexa 30 mg daily which is higher than recommended dosage for elderly patients Reducing to Celexa 20 mg daily Constipation - miralax BID for now Diet: Regular diet, easy to chew ppx: Lovenox. code: DNR/DNI dispo: med surg Lives at [facility]. tentative dispo: [facility] on 02/15/22 daughter's cell: [phone] Admission and Anticipated Discharge Date Admission Date: February 11, 2022 Supervising Physician Co-Signing Physician Notes I personally examined the patient and verified all stinson points of history and exam, discussed case, and agree with decision making with Dr Dhaliwal Has been sleeping. No new problems identified. Discussed with case management who is discussing with [facility]. Vitals noted, in general she is sleeping peacefully no distress. HEENT normocephalic atraumatic mucous membranes moist. Breathing unlabored no accessory muscle use good effort. Skin shows no rashes no pallor or icterus. Neuro without focal deficits. Deliriummost likely from pain from fractures. Pain appears to be better controlled. For rehab, then return to [facility] DVT prophylaxisLovenox Subjective Sleeping at the time, will revisit during rounds. Per nursing, no acute events overnight. Still has 1:1 sitter. Will reassess this later in day. Had pain overnight, but did not end up receiving morphine as she fell asleep. Afternoon: Still sleeping. Woke up briefly during exam after palpated shins w/ mild discomfort. Went back to sleep. Subjective history limited. Review of Systems Review of Systems: All systems reviewed & are unremarkable except as noted in HPI & below Physical Exam Physical Exam: General: Sleeping comfortably. Pulm: CTAB. -wheezes, -rales, -rhonchi. No respiratory distress. Cardiac: RRR, -mrg. Abdominal: Nontender, nondistended, soft. Results & Data Results & Data ([facility]) Vital Signs (Past 12 Hours) Vital Signs Temp Pulse Resp BP Pulse Ox O2 Del Method 02/14/22 05:02 36.5 C 78 18 157/80 H 95 Room Air Resident Activity Tracking Resident Involvement: Resident Care Provided Care Provided: Adult Hospital Medicine (1) Constipation Constipation type: unspecified constipation type Qualified Code(s): K59.00 - Constipation, unspecified
[2022-02-14] MEDS: ENOXAPARIN INJ 30 MG/0.3 ML SYR SQ SCH (09:12)
[2022-02-14] MEDS: SUCRALFATE 1 GM TAB PO SCH ×4 (09:14→21:21)
[2022-02-14] MEDS: MAGNESIUM SULFATE / D5W 1 GM/100 ML BAG IV SCH ×2 (10:44→12:49)
[2022-02-14] MEDS: LIDOCAINE 5% 1 PATCH TD SCH (10:58)
[2022-02-14] MEDS: FLUTICASONE/VILANTEROL 200/25MCG 14 PUFFS/INHALER INH SCH (10:59)
[2022-02-14] MEDS: UMECLIDINIUM BROMIDE 62.5MCG/BLISTER 7 PUFFS/INHALER INH SCH (11:00)
[2022-02-14] MEDS: amLODIPine BESYLATE 5 MG TAB PO SCH (12:12)
[2022-02-14] MEDS: CITALOPRAM 20 MG TAB PO SCH (12:13)
[2022-02-14] MEDS: SENNA 8.6 MG TAB PO SCH (12:13)
[2022-02-14] MEDS: POLYETHYLENE (MIRALAX) 17 GM PACK PO SCH ×2 (12:13→21:20)
--- NOTE | 2022-02-14 16:46 | Billing Data ---
Date of Service February 14, 2022 Coding Level of Care Code 39611 Subseq Hosp Care Lvl 2
[2022-02-14] MEDS: ONDANSETRON INJ 2 MG/ML 2 ML VIAL IV PRN (18:41)
[2022-02-15] MEDS: ACETAMINOPHEN 1000 MG/100 ML IV IV SCH ×2 (05:30→14:44)
[2022-02-15] MEDS ORDERED: LEVOTHYROXINE SODIUM 100 MCG TABLET PO SCH (06:30)
--- NOTE | 2022-02-15 07:29 | Discharge Summary ---
Date of Service February 15, 2022 Admission HPI Per Admitting Provider Jennifer Rodriguez is an 87yo female with HTN, HLP, Hypothyroidism, COPD, and s/p AAA repair. Seen in the ER on 03/31/22 with severe right sided back pain. Found to have compression fractures of lumbar spine at L2 and L4. She returned to [facility]. Has not been taking any new medications of late with exception of Calcitonin nasal spray. Daughter states that she has not been doing well since coming to the ER on 01/29/22. She has continued right sided back pain. Severe, 03/13. Patient has been screaming out in pain. Also with increased confusion, possible hallucinations - seeing children and doors where there are none. Reports that the pain is mostly in right lower back with radiation to the left side as well as right flank to lower abdomen. She is constipated as well - uncertain when her last BM was. Has not been eating or drinking well. Has some nausea. Denies fever, chills, cough, SOB, vomiting, diarrhea. Patient is a poor historian but is able to answer questions and participate in exam. Daughter is at bedside and assists with history. ER Course: Ceftriaxone, Tylenol Admission Exam Per Admitting Provider General: patient resting comfortably, NAD, non-toxic in appearance Skin: warm, dry, intact, no rashes or lesions HEENT: NC/AT, PERRL, EOMI, anicteric sclera, conjunctiva without injection, external ear normal to inspection and nontender, nares patent, moist mucus membranes, dentition intact, no oropharyngeal lesions, neck supple, trachea midline, no LAD, no thyromegaly, no JVD Heart: +S1/S2, regular, 3/6 blowing murmur at apex Lungs: equal air entry bilaterally, no rales/rhonchi/wheezes Abd: +BS, soft, NT/ND, no masses/organomegaly/ascites Ext: warm, 2+ pulses in UE/LE bilaterally, no clubbing/cyanosis or edema Neuro: nonfocal, intact, no facial droop, moving all extremities on command with equal strength 5/5 Tenderness at right flank and lower abdomen, no rebound/guarding/peritoneal signs Principal Diagnosis compression fracture Discharge Exam General: Grossly A&O. NAD. Cooperative. Answering questions. HEENT: Atraumatic, normocephalic. EOMI Pulm: CTAB. -wheezes, -rales, -rhonchi. Symmetrical chest rise. No respiratory distress. Cardiac: RRR, 3/6 systolic murmur. No LE edema. Abdominal: Nontender, nondistended, soft. Discharge Data Allergies Allergy/AdvReac Type Severity Reaction Status Date / Time bupropion [From Wellbutrin] Allergy Mild Unknown Unverified 02/11/22 00:15 hydrochlorothiazide Allergy Mild Unknown Unverified 02/11/22 00:15 [From Avalide] irbesartan [From Avalide] Allergy Mild Unknown Unverified 02/11/22 00:15 roflumilast [From Daliresp] Allergy Mild Unknown Unverified 02/11/22 00:15 denosumab [From Prolia] Allergy Unknown Unknown Verified 02/11/22 00:15 tramadol Allergy Unknown Unknown Verified 02/11/22 00:16 Sulfa (Sulfonamide AdvReac Intermediate Hives Unverified 01/29/22 09:24 Antibiotics) fentanyl [From Duragesic] AdvReac Mild Hallucinati Verified 01/29/22 09:24 ng ciprofloxacin [From Cipro] AdvReac Unknown Unknown Unverified 02/11/22 00:15 NSAIDS (Non-Steroidal AdvReac Unknown Unknown Unverified 02/11/22 00:15 Anti-Inflamma oxycodone AdvReac Unknown Confusion Verified 02/13/22 13:02 Consultations 02/11/22 00:48 ED Decision to Admit Stat 02/13/22 12:58 Consult Orthopedic Surgery Routine Ordered Studies Intake and Output 02/15/22 02/15/22 02/15/22 06:59 14:59 22:59 Intake Total 100 / 300 Output Total 200 / 200 400 / 400 Balance -100 / 100 -400 / -400 Intake: Oral 100 / 100 Output: Urine 200 / 200 400 / 400 Other: Other Intake Source sips and bites Weight 60.8 kg Patient Weight 02/16/22 06:59 Weight 60.8 kg Chest X-Ray 02/10/22 22:59 XR chest 1V portable CLINICAL HISTORY: SEPSIS COMPARISON STUDY: Chest CT May 17, 2021. Chest radiograph October 23, 2021. FINDINGS: Mild elevation the right hemidiaphragm is unchanged. Lungs are clear. There is no pneumothorax or pleural effusion. Cardiac size is normal. Mediastinal contours are normal. There is no evidence for pulmonary edema. Several calcified pulmonary nodules are unchanged. Old proximal left humeral fracture is present. Linear right upper lung density is unchanged since chest radiograph of August 22, 2018. This favors scarring. IMPRESSION: No acute cardiopulmonary findings. No change in appearance of the chest. ACT 112: Negative or not required by law. Electronically signed by: Chandler Joshua M.D. 02/11/2022 8:[address] 02/10/22 23:02 CT head/brain wo con CLINICAL HISTORY: 87 years-old Female with ams, hallucinations. Acutely altered mental status TECHNIQUE: Multiple axial CT images of the head were obtained without contrast. A dose lowering technique was utilized adhering to the principles of ALARA. CT DOSE: 853.38 mGy.cm COMPARISON: Head CT 05/21/2019 FINDINGS: No acute intracranial hemorrhage, midline shift, intracranial mass, hydrocephalus, territorial ischemia or abnormal extra-axial collection. Age- related involutional changes. White matter hypodensities suggest chronic microvascular ischemic disease. Cerebral vascular calcifications. Subcentimeter chronic lacunar infarct within the inferior left cerebellar hemisphere. The calvarium is intact. 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 The paranasal sinuses, mastoid air cells, and middle ear cavities are clear. Prior bilateral lens repair. Incomplete bony fusion involves the posterior arch of C1. IMPRESSION: No acute intracranial abnormality. ACT 112: Negative or not required by law. The above report was generated using voice recognition software. It may contain grammatical, syntax or spelling errors. Electronically signed by: Pablo Major M.D. 02/11/2022 8:16 AM Abdomen/Pelvis CT 02/11/22 01:01 CT OF THE ABDOMEN AND PELVIS WITH CONTRAST CLINICAL HISTORY: Right flank pain. COMPARISON STUDY: Right upper quadrant ultrasound October 24, 2021. CT of the abdomen and pelvis December 02, 2021. Lumbar spine CT January 29, 2022. TECHNIQUE: Following IV administration of 91 mL of Optiray, axial images of the abdomen and pelvis were obtained from the lung bases to the proximal femurs. Images were reviewed in the axial, sagittal, and coronal planes. IV contrast was administered without complication. Automated exposure control was utilized for the study. A dose lowering technique was utilized adhering to the principles of ALARA. CT DOSE: 285.98 mGy.cm FINDINGS: A 4 mm right middle lobe nodule is probably benign. No pneumatosis, free air or portal venous gas is present. Liver, spleen, adrenal glands, kidneys and pancreas are unremarkable. There is a gallstone within the gallbladder. No evidence for acute cholecystitis. There is no biliary or pancreatic ductal dilatation. A 5 x 4.9 cm abdominal aortic aneurysm is similar to CT of December 02, 2021. There is extensive plaque. No evidence for rupture. There is no evidence for a bowel obstruction. Sigmoid diverticulosis is noted without evidence for acute diverticulitis. There is no lymphadenopathy. Multiple lumbar spine compression fractures are similar to the lumbar spine CT of January 29, 2022. No acute fracture is identified. There is no lymphadenopathy. No fluid collection is suggest an abscess. Images of the pelvis are degraded by streak artifact from a left hip arthroplasty. IMPRESSION: 1. No acute process within the abdomen or pelvis. 2. No change in a 5 cm abdominal aortic aneurysm since prior CT. No rupture. 3. Colonic diverticulosis. No evidence for acute diverticulitis. No bowel obstruction. 2. No change in numerous lumbar spine compression fractures since CT of the January 29, 2022. ACT 112: Negative or not required by law. Electronically signed by: Chandler Joshua M.D. 02/11/2022 8:01 AM Hospital Course (1) Delirium: (2) Intractable pain: (3) Compression fracture: (4) Hypothyroidism: (5) Hypertension: (6) Constipation: Plan 87-year-old female presenting with severe right-sided back pain persistent for the last 2 weeks most likely attributed to acute vs subacute compression fractures per 01/29/22 CT lumbar spine. Lumbar compression fractures Compression fracture findings from 01/29/22 CT lumbar spine: 1. Subtle concavity of the superior endplate of L2 with minimal loss of vertebral body height. This is new since CT of December 02, 2021 and represents an acute to subacute mild compression fracture. 2. Interval increase in L4 vertebral body height loss since prior exam. This represents a subacute compression fracture. 3. Old L1 and L3 compression fractures. - pain control w/ lidocaine patch, nasal calcitonin, scheduled Tylenol (increased from 650mg TID to 1000mg TID). - avoid narcotic pain medications if possible. multiple adverse reactions noted to different narcotic medications. could trial very small dose of oral morphine if pain intractable. - Tylenol 1000mg q8h scheduled providing adequate control; continue for next 2 weeks, reassess after - NSAIDs contraindicated due to hx of ulcers. - consulted ortho spine for evaluation/recs; conservative management. f/u in 2 weeks w/ ortho spine (Dr. Glover) w/ repeat xrays at that time - orthotics; LSO brace: per ortho, wear w/ activity/ambulation; no need to wear in bed. do not lift more than 5 lbs. Acute delirium on dementia, delirium improved - CT abdomen and pelvis with IV contrast - no acute pathology - treated empirically w/ 2 days of IV Rocephin for UA. Urine culture w/ 10k cfu of corynebacterium. discontinued abx - somnolence: s/p 1 dose of 0.5mg IV morphine, somnolence improved 2 days after last dose. somnolence may also be from delirium Hypokalemia - repleted Elevated high sensitivity troponin, has peaked Hypothyroidism, subclinical - TSH 36. fT4 0.93 - verified compliance has been receiving levothyroxine at [facility] daily - increased from 75mcg to 100mcg levothyroxine - repeat TSH ~4wks (around first week of March) Hypertension - Chronic. Elevated in the setting of acute pain Continue amlodipine 2.5 mg p.o. daily Chronic obstructive pulmonary disease - Chronic. no cough, shortness of breath or wheeze Continue fluticasonevilanterol Continue umeclidinium Depression - Chronic controlled on medications On Celexa 30 mg daily which is higher than recommended dosage for elderly patients Reducing to Celexa 20 mg daily Constipation - miralax BID during the hospitalization. PRN upon discharge, but consider scheduled basis if needed Diet: Regular diet, easy to chew code status during this admission: DNR/DNI Lives at [facility]. [facility] on 02/15/22 daughter's cell: [phone] Total Time Total Time Spent Total Time Spent (In Minutes): <30 Discharge Plan Discharge Items Patient Disposition: Transfer Inpatient Rehab Fac Reason For Visit: SEVERE BACK PAIN, DELIRIUM Discharge Diagnosis: compression fracture Activity: Per Instructions section Non-emergency contact: Primary Care Provider Call non-emergency contact if: you have any medication questions, your symptoms worsen and you have a fever Follow-up/Referrals: Dariel Glover DO [Surgeon] - (follow up in [address] Glover) [facility] [[facility] - Diet: Regular Diet Texture: Easy to Chew Addtl Attending Provider Instructions: 87-year-old female presenting with severe right-sided back pain persistent for the last 2 weeks most likely attributed to acute vs subacute compression fractures per 01/29/22 CT lumbar spine. Lumbar compression fractures Compression fracture findings from 01/29/22 CT lumbar spine: 1. Subtle concavity of the superior endplate of L2 with minimal loss of vertebral body height. This is new since CT of December 02, 2021 and represents an acute to subacute mild compression fracture. 2. Interval increase in L4 vertebral body height loss since prior exam. This represents a subacute compression fracture. 3. Old L1 and L3 compression fractures. - pain control w/ lidocaine patch, nasal calcitonin, scheduled Tylenol (increased from 650mg TID to 1000mg TID). - avoid narcotic pain medications if possible. multiple adverse reactions noted to different narcotic medications. could trial very small dose of oral morphine if pain intractable. - Tylenol 1000mg q8h scheduled providing adequate control; continue for next 2 weeks, reassess after - NSAIDs contraindicated due to hx of ulcers. - consulted ortho spine for evaluation/recs; conservative management. f/u in 2 weeks w/ ortho spine (Dr. Glover) w/ repeat xrays at that time - orthotics; LSO brace: per ortho, wear w/ activity/ambulation; no need to wear in bed. do not lift more than 5 lbs. Acute delirium on dementia, delirium improved - CT abdomen and pelvis with IV contrast - no acute pathology - treated empirically w/ 2 days of IV Rocephin for UA. Urine culture w/ 10k cfu of corynebacterium. discontinued abx - somnolence: s/p 1 dose of 0.5mg IV morphine, somnolence improved 2 days after last dose. somnolence may also be from delirium Hypokalemia - repleted Elevated high sensitivity troponin, has peaked Hypothyroidism, subclinical - TSH 36. fT4 0.93 - verified compliance has been receiving levothyroxine at [facility] daily - increased from 75mcg to 100mcg levothyroxine - repeat TSH ~4wks (around first week of March) Hypertension - Chronic. Elevated in the setting of acute pain Continue amlodipine 2.5 mg p.o. daily Chronic obstructive pulmonary disease - Chronic. no cough, shortness of breath or wheeze Continue fluticasonevilanterol Continue umeclidinium Depression - Chronic controlled on medications On Celexa 30 mg daily which is higher than recommended dosage for elderly patients Reducing to Celexa 20 mg daily Constipation - miralax BID during the hospitalization. PRN upon discharge, but consider scheduled basis if needed Diet: Regular diet, easy to chew code status during this admission: DNR/DNI Lives at [facility]. [facility] on 02/15/22 daughter's cell: [phone] Pending Studies at Discharge: No Stand-Alone Forms: My [facility] Skilled Items Patient informed of condition?: Yes DNR: Yes Discharge Level of Care: Acute rehab Communicable Disease: No Discharge Prognosis: Stable Lines: None Urinary Catheter: No Medications and DC Order Prescriptions: New levothyroxine [Synthroid] 100 mcg Tablet 100 mcg PO DAILYBB 30 Days Qty: 30 0RF acetaminophen 500 mg capsule 1,000 mg PO Q8H 30 Days Qty: 180 0RF Continued Incruse Ellipta 62.5 mcg/actuation blister with device 1 inh inhalation DAILY Qty: 3 3RF Rx Instructions: 90-day supply ( 3 inhalers), 3 refills citalopram 20 mg tablet 20 mg PO DAILY polyethylene glycol 3350 [Miralax] 17 gram/dose Powder 17 g PO BID PRN (Reason: Constipation) methyl salicylate-menthol Cream 1 applic TOPICAL QID PRN (Reason: Pain) Women's Multivitamin Gummies 200 mcg Tablet,Chewable 2 tab PO QAM sucralfate [Carafate] 1 gram tablet 1 g PO ACHS Qty: 60 0RF fluticasone furoate-vilanterol [Breo Ellipta] 200-25 mcg/dose blister with device 1 inh INHALATION DAILY amlodipine 2.5 mg tablet 2.5 mg PO DAILY loperamide [Anti-Diarrheal (loperamide)] 2 mg Tablet 2 mg PO UD PRN (Reason: Adequate Ventilation) Rx Instructions: administer 2 tablets after first loose stool then 1 therafter as needed for diarrhea calcitonin (salmon) 200 unit/actuation spray,non-aerosol 1 spray intranasal (ALT) Q OTHER DAY Lidocain Pain Relief Patch 1 patch topical Q8 MDD 4 patches PRN (Reason: Pain) Discontinued acetaminophen [Tylenol] 325 mg Tablet 325 - 650 mg PO Q4 PRN (Reason: Fever Or Pain) levothyroxine [Synthroid] 75 mcg Tablet 75 mcg PO DAILYBB Qty: 30 0RF citalopram [Celexa] 10 mg Tablet 10 mg PO DAILY Discharge Orders: Discharge Order (Routine); Ordered 02/15/22 Ordered By: Chris Dhaliwal Admission Data Admit Date/Time: 02/11/22 01:13 Attending Provider: Yair Altamirano Admit Provider: Alee De Souza Primary Care Provider: Srinivasan Lipscomb,[facility], [facility] Other Providers: Alee De Souza ; Dariel Glover ; [facility] Other Interventions: Discharge Summary Assessment (RN) Last Done: 02/15/22 14:50 Supervising Physician Co-Signing Physician Notes I personally examined the patient and verified all stinson points of history and exam, discussed case, and agree with decision making with Dr Dhaliwal sitting in bed appearing comfortable holding baby doll. notes had back pain earlier but notes pain reasonable now. Vitals noted, in general she is sleeping peacefully no distress. HEENT normocephalic atraumatic mucous membranes moist. Breathing unlabored no accessory muscle use good effort. Skin shows no rashes no pallor or icterus. Neuro without focal deficits. Deliriummost likely from pain from fractures. Pain appears to be remaining better controlled since brace. For rehab, then return to [facility] DVT prophylaxisLovenox Resident Activity Tracking Resident Involvement: Resident Care Provided Care Provided: Adult Hospital Medicine
[2022-02-15] MEDS: CITALOPRAM 20 MG TAB PO SCH (08:59)
[2022-02-15] MEDS: SENNA 8.6 MG TAB PO SCH (08:59)
[2022-02-15] MEDS: amLODIPine BESYLATE 5 MG TAB PO SCH (08:59)
[2022-02-15] MEDS: SUCRALFATE 1 GM TAB PO SCH ×2 (09:00→14:45)
[2022-02-15] MEDS: FLUTICASONE/VILANTEROL 200/25MCG 14 PUFFS/INHALER INH SCH (09:02)
[2022-02-15] MEDS: CALCITONIN SALMON NA 200 IU/AC 3.7 ML BTL SCH (09:02)
[2022-02-15] MEDS: ENOXAPARIN INJ 30 MG/0.3 ML SYR SQ SCH (09:04)
[2022-02-15] MEDS: LIDOCAINE 5% 1 PATCH TD SCH (09:07)
[2022-02-15] MEDS: UMECLIDINIUM BROMIDE 62.5MCG/BLISTER 7 PUFFS/INHALER INH SCH (09:08)
--- NOTE | 2022-02-15 09:36 | Consultation ---
Date of Consultation February 15, 2022 Assessment & Plan (1) Fracture, lumbar vertebra, compression: Dr. Glover has reviewed CT scan. Orthotics gave her a brace 2 days ago. Treatment is conservative. Recommending use of brace with activity/ambulation. Does not need to wear it in bed. Ambulate ad maximo. No lifting greater than 5 pounds. She is orthopedically stable. We can see her in the office in about 2 weeks for updated x-rays. History of Present Illness Reason for Consultation: Acute to subacute L2 compression fracture Attending Physician: Yair Altamirano DO History of Present Illness Is a pleasant 87-year-old female who presented to the ER on January 29 from her correction with complaints of lower back pain. She was diagnosed with an acute to subacute L2 compression fracture via CT scan and discharged back to the correction. She presented a few weeks later back to the ER with worsening delirium and back pain. History is difficult to obtain from he due to dementia. I am unable to confirm if she has had a fall or not a few weeks ago. She states typically she ambulates with a walker. Currently she denies any pain. Allergies Allergy/AdvReac Type Severity Reaction Status Date / Time bupropion [From Wellbutrin] Allergy Mild Unknown Unverified 02/11/22 00:15 hydrochlorothiazide Allergy Mild Unknown Unverified 02/11/22 00:15 [From Avalide] irbesartan [From Avalide] Allergy Mild Unknown Unverified 02/11/22 00:15 roflumilast [From Daliresp] Allergy Mild Unknown Unverified 02/11/22 00:15 denosumab [From Prolia] Allergy Unknown Unknown Verified 02/11/22 00:15 tramadol Allergy Unknown Unknown Verified 02/11/22 00:16 Sulfa (Sulfonamide AdvReac Intermediate Hives Unverified 01/29/22 09:24 Antibiotics) fentanyl [From Duragesic] AdvReac Mild Hallucinati Verified 01/29/22 09:24 ng ciprofloxacin [From Cipro] AdvReac Unknown Unknown Unverified 02/11/22 00:15 NSAIDS (Non-Steroidal AdvReac Unknown Unknown Unverified 02/11/22 00:15 Anti-Inflamma oxycodone AdvReac Unknown Confusion Verified 02/13/22 13:02 Home Medications Medication Instructions Recorded Confirmed Type citalopram 10 mg tablet (Celexa) 10 mg PO DAILY 05/16/21 02/11/22 History fluticasone furoate 200 1 inh inhalation DAILY 05/16/21 02/11/22 History mcg-vilanterol 25 mcg/dose inhalation powder (Breo Ellipta) umeclidinium 62.5 mcg/actuation 1 inh inhalation DAILY #3 ea 07/22/21 02/11/22 Rx blister powder for inhalation (Incruse Ellipta) acetaminophen 325 mg tablet 325 - 650 mg PO Q4 PRN Fever Or 10/23/21 02/11/22 History (Tylenol) Pain citalopram 20 mg tablet 20 mg PO DAILY 10/23/21 02/11/22 History methyl salicylate-menthol topical 1 applic topical QID PRN Pain 10/23/21 02/11/22 History cream multivitamin with minerals-folic 2 tab PO QAM 10/23/21 02/11/22 History acid 200 mcg chewable tablet (Women's Multivitamin Gummies) polyethylene glycol 3350 17 17 g PO BID PRN Constipation 10/23/21 02/11/22 History gram/dose oral powder (Miralax) levothyroxine 75 mcg tablet 75 mcg PO DAILYBB #30 tabs 10/26/21 02/11/22 Rx (Synthroid) sucralfate 1 gram tablet (Carafate) 1 g PO ACHS #60 tabs 10/26/21 02/11/22 Rx Lidocain Pain Relief Patch 1 patch topical Q8 PRN Pain 02/11/22 02/11/22 History amlodipine 2.5 mg tablet 2.5 mg PO DAILY 02/11/22 02/11/22 History calcitonin (salmon) 200 1 spray intranasal (ALT) Q OTHER 02/11/22 02/11/22 History unit/actuation nasal spray DAY loperamide 2 mg tablet 2 mg PO UD PRN Adequate Ventilation 02/11/22 02/11/22 History (Anti-Diarrheal (loperamide)) Patient History Medical History Anemia Anxiety Aortic stenosis Closed sacral fracture COPD (chronic obstructive pulmonary disease) Dehydration Delirium Dementia Depression Duodenal bulb ulcer Gallstones GI bleed Hyperlipidemia LDL goal <70 Hypertension Hyponatremia Hypothyroidism Left hip pain Murmur, cardiac Osteopenia Peptic ulcer disease Pneumonia Pseudomonas urinary tract infection Urinary retention Surgical History S/P AAA (abdominal aortic aneurysm) repair Family History Father , in his 70s of an [place]. Hypertension Myocardial infarction Mother , in her 70s after a fall No problems noted. 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 Feels Safe at Home: Yes Assistive Devices: Walker Review of Systems Review of Systems: All systems reviewed & are unremarkable except as noted in HPI & below Physical Exam Physical Exam: Alert but confused She is able to sit up on her own without assistance. Does not appear to be uncomfortable or in distress when she does this. She is nontender to palpation to the thoracolumbar spine Strength is intact bilateral lower extremities Results & Data ([facility]) Vital Signs (Past 12 Hours) Vital Signs Temp Pulse Resp BP BP Pulse Ox O2 Del Method 02/15/22 07:30 36.4 C L 71 16 164/84 H 97 Room Air 02/14/22 23:02 36.6 C 89 16 190/82 H 95 Room Air Diagnostic Findings [place] [phone] CT Scan Report Patient:ELOISA WANG Admit Date:01/29/22 MR#:[id number] Address1:[address] [place] [address] Acct ID:[id number] Address2:[facility] Date:1935 [facility] Zip:[place] [address] Age:86 Location:ED Sex:F Room/Bed: Att Phy: Diagnosis:back pain Becky Phy:Minka Service Date:01/29/22 [facility] Phy: Interpreting Phy:Chandler Joshua MDAdmit Phy: Ordering Phy:Graham Carrington, cc: ~ CT OF THE LUMBAR SPINE CLINICAL HISTORY: Back pain. COMPARISON STUDY: Lumbar spine CT and CT of the abdomen and pelvis December 02, 2021. TECHNIQUE: Helical axial images of the lumbar spine were obtained. Sagittal and coronal reconstructions were viewed. Automated exposure control was utilized for the study. A dose lowering technique was utilized adhering to the principles of ALARA. FINDINGS: For purposes of numbering on this exam, the L5-S1 disc space is assigned to axial image 250 302. A 5.1 x 4.8 cm abdominal aortic aneurysm is noted. This is suboptimally assessed on this exam. This appears similar to prior abdominal CT. Sacroiliac joints are intact. Mild deformity of the left sacral ala is unchanged. There is severe multilevel facet arthrosis. There is severe disc space narrowing at L5-S1. Old L1 and L3 compression fractures are unchanged. There has been interval increase in loss of height of the L4 superior endplate since CT of December 02, 2021. There is no 30% loss of vertebral body height centrally at this level. There is new mild central concavity of the superior endplate of L2 since CT of December 02, 2021. There is no retropulsion at this level. This represents an acute to subacute compression fracture. No additional acute fractures are identified. There are no suspicious osseous lesions. Calcific gallstone within the gallbladder is noted. IMPRESSION: 1. Subtle concavity of the superior endplate of L2 with minimal loss of vertebral body height. This is new since CT of December 02, 2021 and represents an acute to subacute mild compression fracture. 2. Interval increase in L4 vertebral body height loss since prior exam. This represents a subacute compression fracture. 3. Old L1 and L3 compression fractures. 4. No significant change in a 5.1 x 4.8 cm abdominal aortic aneurysm. Nonemergent Vascular surgery consultation is recommended. ACT 112: Negative or not required by law. Electronically signed by: Chandler Joshua M.D. 01/29/2022 9:59 AM Dictated:01/29/22 [id number] Transcribed: 01/29/22 0952
--- NOTE | 2022-02-15 09:38 | Billing Data ---
Date of Service February 15, 2022 Coding Level of Care Code D/C DAY MANAGEMENT <30 MINS
[2022-02-15] MEDS ORDERED: ONDANSETRON INJ 2 MG/ML 2 ML VIAL IV STA (10:27)
[2022-02-15] MEDS: POLYETHYLENE (MIRALAX) 17 GM PACK PO SCH (10:59)
== END 2022-02-15 15:51 | DRG 560 ==
LOC: ED 22:48 → SUATTDRO 02-11 01:13 → 2N 02-11 01:13 → 2S 02-13 17:32